=== PATIENT | male | born 1960 | race Caucasian/White ===

== ENCOUNTER 2018-01-01 20:13 | Emergency (ER) | payer BC ==
[2018-01-01 20:46] VITALS: BP 95/49
--- NOTE | 2018-01-01 21:18 | RAD ---
HISTORY: Left ankle pain and foot pain status post fall COMPARISONS: October 07, 2017 VIEWS: 6, Frontal, lateral, and oblique views of the left ankle and of the left foot FINDINGS: BONE DENSITY: Normal. BONES: There is a bone fragment off the lateral aspect of the hindfoot, consistent with an avulsion injury, likely from the calcaneus or cuboid. There are calcaneal enthesophytes.. JOINTS: There is no arthropathy. ALIGNMENT: There is no dislocation. SOFT TISSUES: Unremarkable. OTHER FINDINGS: None. IMPRESSION: BONE FRAGMENT OFF THE LATERAL ASPECT OF THE MIDFOOT, LIKELY AN AVULSION FRACTURE FROM THE CALCANEUS OR CUBOID.
[2018-01-01] MEDS ORDERED: Acetaminop/Codeine 30 MG TAB* 1 TAB (300 MG/30 MG) PO ONE (21:43)
--- NOTE | 2018-01-01 21:43 | UC ---
Lower Extremity/Ankle HPI - History of Current Complaint Chief Complaint: UCLowerExtremity Stated Complaint: ANKLE INJURY Time Seen by Provider: 01/01/18 21:25 Hx Obtained From: Patient Onset/Duration: Sudden Onset - twisted L ankle this evening, pain top of foot and Lateral ankle is able to bear weight Severity Initially: Moderate Severity Currently: Moderate Pain Intensity: 9 Aggravating Factor(s): Standing, Ambulation Alleviating Factor(s): Rest, Ice Able to Bear Weight: Yes - Allergies/Home Medications Allergies/Adverse Reactions: Allergies Allergy/AdvReac Type Severity Reaction Status Date / Time No Known Allergies Allergy Verified 01/01/18 20:47 PMH/Surg Hx/FS Hx/Imm Hx Previously Healthy: Yes Cardiovascular History: Hypertension Neurological History: Other - essential tremor Other Neurological History: tremors - Surgical History Surgical History: None - Family History Known Family History: Positive: Hypertension - Social History Occupation: Retired Lives: With Family Alcohol Use: Daily Substance Use Type: None Smoking Status (MU): Never Smoked Tobacco Review of Systems Constitutional: Negative Respiratory: Negative Cardiovascular: Negative Musculoskeletal: Other: - Pain L ankle/foot Neurological: Negative Psychological: Negative All Other Systems Reviewed And Are Negative: Yes Physical Exam Triage Information Reviewed: Yes Appearance: Well-Appearing, No Pain Distress, Well-Nourished Vital Signs: Initial Vital Signs Temp 98.1 F 01/01/18 20:40 Pulse 60 01/01/18 20:40 Resp 16 01/01/18 20:40 BP 95/49 01/01/18 20:40 Pulse Ox 99 01/01/18 20:40 Vital Signs Reviewed: Yes Respiratory Exam: Normal Cardiovascular Exam: Normal Cardiovascular: Positive: RRR Musculoskeletal: Positive: ROM Limited @ - L ankle, Other: - minor swelling L lateral ankle/foot Neurological Exam: Normal Neurological: Positive: Alert Psychological Exam: Normal Skin Exam: Normal Lower Extremity Course/Dx - Course Course Of Treatment: pt refuses crutches - Differential Dx/Diagnosis Differential Diagnosis/HQI/PQRI: Fracture (Closed), Sprain, Strain Provider Diagnoses: L ankle sprain, avulsion fracture foot Discharge - Sign-Out/Discharge Documenting (check all that apply): Discharge/Admit/Transfer - Discharge Plan Condition: Stable Disposition: HOME Patient Education Materials: Ankle Sprain (ED), Foot Fracture in Adults (ED) Referrals: Luc Hartley MD [Primary Care Provider] - 2 Days Graham Gill MD [Medical Doctor] - 1 Week (recheck fractured foot) Additional Instructions: Patient is aware he has low B/P and is working with PCP to adjust meds. He plans to stop amlodipine as of tomorrow ice and elevate foot, use ankle splint until you see ortho Ibuprofen as directed for pain - Billing Disposition and Condition Condition: STABLE Disposition: HOME
== END 2018-01-01 22:18 | disposition home or self-care (01) ==
LOC: UCEAST 20:13
DX: S93.402A Sprain of unspecified ligament of left ankle, initial encounter (principal); X50.1XXA Overexertion from prolonged static or awkward postures, initial encounter; Y93.9 Activity, unspecified; Y92.9 Unspecified place or not applicable; I10 Essential (primary) hypertension; R25.1 Tremor, unspecified
CPT/HCPCS: 99213; A9270-GY; G0463

== ENCOUNTER 2018-09-05 11:01 | Inpatient (IN) | payer BC ==
--- OUTSIDE RECORDS SUMMARY | 2018-09-05 11:38 | XMS REPORT | Continuity of Care Document ---
:1960 External Reference #:[id number] Author Name Hamzah Foss DO Address [address] [place] [address] Care Team Providers Name Role Phone Luc Hartley MD Care Team Information Chef Assistant Unavailable Luc Hartley MD Primary Care Physician Unavailable Payers Type Date Identification Numbers Payment Provider Subscriber Policy Number: [id number] Of [employer] PayID: [id number] [address] [address] [place] [address] Advance Directives Description No Information Available Problems Date Description Provider Status Onset: 03/28/2018 Digestive symptom Kelsie Jones PA-C Active Onset: 03/28/2018 Esophageal dysphagia Kelsie Jones PA-C Active Onset: 03/28/2018 Nausea and vomiting Kelsie Jones PA-C Active Onset: 03/28/2018 Loss of appetite Kelsie Jones PA-C Active Onset: 03/28/2018 Weight decreased Kelsie Jones PA-C Active Family History Description No Information Available Social History Type Date Description Comments Sex Unknown ETOH Use Consumes 2 beers per day ETOH Use prior heavy use 6/day Tobacco Use Start: Unknown Patient has never smoked Smoking Status Reviewed: 09/05/18 Patient has never smoked Allergies, Adverse Reactions, Alerts Date Description Reaction Status Severity Comments 03/28/2018 Amoxicillin Active Medications Medication Date Status Form Strength Qnty SIG Indications Ordering Provider Alprazolam / Active Tablets 0.25mg Niziol,Mi 0000 MD ld Cialis / Active Tablets 5mg Niziol,Mi 0000 MD ld Testosterone / Active Solution 200mg/ml Unknown Cypionate 0000 Alrex 00/00/ Active Suspension 0.2% Unknown 0000 Mysoline / Active Tablets 50mg 1/4 Tablet Unknown 0000 Daily Lactulose / Active Solution 10GM/15ML 30 ML bid Unknown 0000 Irbesartan-Hyd / Hx Tablets 150-12.5mg Niziol,Blanche rochlorothiazi MD umaña 2018 Gabapentin / Hx Capsules 300mg Niziol,Blanche jaffe MD 2018 Propranolol / Hx Caps ER 24HR 60mg Take 2 Unknown HCL ER 0000 - Capsules 09/05/ By Mouth 2019 Every Day Flovent HFA / Hx Aerosol 220mcg/Act Niziol,Blanche jaffe MD 2018 Amlodipine / Hx Tablets 10mg Blanche Hartley Besylate Sylvie jaffe MD 2018 Immunizations Description No Information Available Vital Signs Date Vital Result Comment 09/05/2018 9:13am Height 67 inches 5'7" Weight 158.00 lb BP Systolic 106 mmHg BP Diastolic 68 mmHg Heart Rate 91 /min BMI (Body Mass Index) 24.7 kg/m2 03/28/2018 8:55am Height 67 inches 5'7" Weight 170.00 lb BP Systolic 129 mmHg BP Diastolic 60 mmHg Heart Rate 74 /min BMI (Body Mass Index) 26.6 kg/m2 Results Test Date Facility Test Result H/L Range Note Laboratory test 03/29/20 [facility] [place] Fecal SEE RESULT 1 finding 18 Lactoferrin BELOW (Stool WBC) Stool Occult 03/29/20 [facility] [place] Stool Occult SEE RESULT 2 Blood Diag 18 Blood, Diag BELOW Liver Function 03/28/20 [facility] Albumin 4.0 g/dL 3.5 -5.2 Panel(!) 18 [address] [facility] Serum/Plasma(!) [place] [address] [phone] Alkaline Phosphatase(!) 75 U/L 39-117 Bilirubin Direct Mass/Vol(!) 0.2 mg/dL 0.0-0.6 Bilirubin Total Mass/Vol(!) 0.4 mg/dL 0.2-1.3 Ast - Sgot 74 U/L High 5-34 Alt - SGPT 77 U/L High 10-40 Protein, Total(!) 6.1 g/dL Low 6.2-8.1 CBC W/Auto 06/22/2017 [facility] White Blood <pending> Differential(!) Count Ser Auto CNT RBC Red Blood Count <pending> Hemoglobin Blood <pending> Hematocrit <pending> MCV (Corpuscular Volume) <pending> MCH (Corpuscular Hemoglobin) <pending> MCHC (Corpuscular Hemog Conc) <pending> RDW <pending> Platelet Count Blood Auto CNT <pending> MPV <pending> Lymph% <pending> Dickinson% <pending> Neutrophil % <pending> Absolute Lymphocytes <pending> Absolute Monocytes <pending> Absolute Neutrophils <pending> Laboratory test 06/22/2017 [facility] BUN/Creatinine <pending> finding Ratio(!) 1 SEE RESULT BELOW Name: BRAYAN NEGRO : [address]: Kelsie SOLIS Acct: [id number] Unit: [id number] AGE: 57 Location: [facility] Re03/29/18 SEX: M Status: REG REF SPEC: [id number] GIRMA: 03/29/[address]: Kelsie SOLIS REQ: [id number] RECD: 03/29/18 STATUS: RES _ SOURCE: STOOL SPDESC: ORDERED: Occult Bl, Diag, Fecal Lactoferr Procedure Result Reported Site Stool Specimen Description Final 03/29/18- 1311 ML Stool Color Brown Stool Form Nonformed Stool Consistency Soft Fecal Lactoferrin (Stool WBC) PENDING Stool Occult Blood (1) PENDING * ML - Main Lab . END OF REPORT DEPARTMENT OF PATHOLOGY, [address] [place] [address] Mejia Osborne M.D. Director [facility] # [id number] 2 SEE RESULT BELOW Name: BRAYAN NEGRO : [address]: Kelsie SOLIS Acct: [id number] Unit: [id number] AGE: 57 Location: [facility] Re03/29/18 SEX: M Status: REG REF SPEC: [id number] GIRMA: 03/29/[address]: Kelsie SOLIS REQ: [id number] RECD: 03/29/18 STATUS: COMP _ SOURCE: STOOL SPDESC: ORDERED: Occult Bl, Diag, Fecal Lactoferr Procedure Result Reported Site Stool Specimen Description Final 03/29/18- 1311 ML Stool Color Brown Stool Form Nonformed Stool Consistency Soft Fecal Lactoferrin (Stool WBC) Final 03/29/18- 1312 ML Fecal Lactoferrin Negative by Immunoassay TEST LIMITATIONS: Assay detects elevated levels of lactoferrin released from fecal leukocytes as a marker of intestinal inflammation. The test may not be appropriate in immunocompromised persons. Fecal samples from breast fed infants should not be used with this assay. Stool Occult Blood (1) Final 03/29/18- 1312 ML Stool Occult Blood Negative Collection Date (1) 03/29/18 * ML - Main Lab . END OF REPORT DEPARTMENT OF PATHOLOGY, [address] [place] [address] Mejia Osborne M.D. Director [facility] # [id number] Procedures Description No Information Available Encounters Type Date Location Provider Dx Diagnosis Office Visit 03/28/2018 Gastroenter[facility] Kelsie Westfall R63.4 Abnormal weight 8:45a [facility] LISA Jones loss R63.0 Anorexia R11.2 Nausea with vomiting, unspecified R13.14 Dysphagia, pharyngoesophageal phase R19.4 Change in bowel habit Plan of Treatment No Information Available
[2018-09-05 13:49] LABS: Hematocrit 37 % (42-52); Hemoglobin 12.5 g/dl (14.0-18.0); Mean Corpuscular HGB Conc 34 g/dl (31-36); Mean Corpuscular Hemoglobin 34 pg (27-31); Mean Corpuscular Volume 99 fL (80-94); Mean Platelet Volume 9.1 fL (7.4-10.4); Platelet Count 150 10^3/ul (150-450); Red Blood Count 3.74 10^6/ul (4.00-5.40); Red Cell Distribution Width 15 % (10.5-15); White Blood Count 6.4 10^3/ul (3.5-10.8)
[2018-09-05 13:58] LABS: Albumin 2.8 g/dL (3.2-5.2); Albumin/Globulin Ratio 1.2 (1-3); BUN/Creatinine Ratio 12.8 (8-20); C Reactive Protein 13.51 mg/L (<8.01); Calcium 7.9 mg/dL (8.6-10.3); EGFR African American 123.7 (>60); EGFR Non-African American 102.2 (>60); Globulin 2.3 g/dL (2-4); Potassium 3.6 mmol/L (3.5-5.0); Total Protein 5.1 g/dL (6.4-8.9)
[2018-09-05 14:00] LABS: Total Bilirubin 15.8 mg/dL (0.2-1.0)
[2018-09-05 14:02] LABS: BNP 130 pg/mL (<=100)
[2018-09-05 14:17] LABS: ABS Basophils 0.1 10^3/ul (0-0.2); ABS Eosinophils 0 10^3/ul (0-0.6); Lymphocytes % 8 %; Monocytes % 12 %; Neutrophil % 78 %
[2018-09-05 14:20] LABS: Indirect Bilirubin 6.6 mg/dL (0.3-1.0)
[2018-09-05] MEDS ORDERED: Iodixanol* (CONTRAST) 320 MG/ML 100 ML SDV IV ONE (14:43)
[2018-09-05 15:06] LABS: Alcohol 194 mg/dL (<10)
--- NOTE | 2018-09-05 16:40 | ED ---
Abdominal Pain/Male - HPI Summary HPI Summary: Patient is a 58-year-old male presenting to the ED from GI office with elevated liver enzymes over the course of the past several weeks. He states he has had several medication changes in attempts to reduce the liver enzymes, but they remain elevated. He shouldn't is also an alcoholic, otherwise all negative hepatitis screening has been negative. Patient denies any pain or symptoms. He does endorse some diarrhea secondary to his lactulose treatment which he is on currently for the side effects of his primidone treatment. He does endorse an essential tremor and reduced his primidone from 75 to currently 12 mg per day. He continues to have this essential tremor despite these medications. Patient denies any fevers, sweats, chills. Denies any headache, confusion, memory loss. He states he has had elevated liver enzymes most of his life due to a medication he took when he was a child. He also states he takes medications currently which increase his liver enzymes. He began to become jaundiced approximately 1.5 months ago, however worsened greatly over the past week. - History of Current Complaint Chief Complaint: EDGeneral Stated Complaint: POSS ELEVATED LIVER ENZYMES Time Seen by Provider: 09/05/18 13:25 Hx Obtained From: Patient Onset/Duration: Gradual Onset Timing: Constant Severity Initially: Moderate Severity Currently: Moderate Pain Intensity: 0 Pain Scale Used: 0-10 Numeric Radiates: No Aggravating Factor(s): Nothing Alleviating Factor(s): Nothing Associated Signs And Symptoms: Positive: Negative - Allergies/Home Medications Allergies/Adverse Reactions: Allergies Allergy/AdvReac Type Severity Reaction Status Date / Time amoxicillin Allergy GI Upset Verified 09/05/18 11:10 Home Medications: Home Medications ALPRAZolam TAB* [Xanax TAB*] 0.25 mg PO DAILY PRN 09/05/18 [History Confirmed ] Lactulose [Enulose] 15 ml PO BID 09/05/18 [History Confirmed 09/05/18] Primidone TAB(*) [Mysoline TAB(*)] 50 mg PO DAILY 09/05/18 [History Confirmed ] Tadalafil (Nf) [Cialis (NF)] 5 mg PO DAILY PRN 09/05/18 [History Confirmed 09/05] Testosterone Cypionate (NF) 200 mg IM WEEKLY 09/05/18 [History Confirmed ] PMH/Surg Hx/FS Hx/Imm Hx Previously Healthy: Yes Endocrine/Hematology History: Denies: Hx Diabetes, Hx Thyroid Disease Cardiovascular History: Reports: Hx Hypertension Respiratory History: Denies: Hx Asthma, Hx Chronic Obstructive Pulmonary Disease (COPD) GI History: Denies: Hx Ulcer History: Denies: Hx Renal Disease - Immunization History Date of Tetanus Vaccine: UTD Date of Influenza Vaccine: NO Hx Pertussis Vaccination: No Immunizations Up to Date: Yes Infectious Disease History: No Infectious Disease History: Denies: Hx Hepatitis, Hx Human Immunodeficiency Virus (HIV), Traveled Outside the [place] in Last 30 Days - Family History Known Family History: Positive: Hypertension - Social History Occupation: Employed Full-time Lives: With Family Alcohol Use: Daily Alcohol Amount: 1-2 beers per day Hx Substance Use: No Substance Use Type: Reports: None Hx Tobacco Use: No Smoking Status (MU): Former Smoker Review of Systems Negative: Fever, Chills, Fatigue, Skin Diaphoresis Positive: Other - scleral icterus Negative: Epistaxis, Dental Pain, Sore Throat, Ear Ache Negative: Palpitations, Chest Pain Negative: Shortness Of Breath, Cough Negative: Abdominal Pain, Vomiting, Diarrhea Positive: Other - jaundiced throughout Neurological: Negative All Other Systems Reviewed And Are Negative: Yes Physical Exam Triage Information Reviewed: Yes Vital Signs On Initial Exam: Initial Vitals Temp Pulse Resp BP Pulse Ox 98.5 F 92 16 138/81 95 09/05/18 11:07 09/05/18 11:07 09/05/18 11:07 09/05/18 11:07 09/05/18 11:07 Vital Signs Reviewed: Yes Appearance: Positive: Ill-Appearing Skin: Positive: Other - Jaundiced throughout Head/Face: Positive: Normal Head/Face Inspection Eyes: Positive: Other: - Scleral icterus ENT: Positive: Pharynx normal Respiratory/Lung Sounds: Positive: Clear to Auscultation, Breath Sounds Present Cardiovascular: Positive: Pulses are Symmetrical in both Upper and Lower Extremities Musculoskeletal: Positive: Strength/ROM Intact, Other - Essential tremor bilaterally Neurological: Positive: Speech Normal Psychiatric: Positive: Affect/Mood Appropriate AVPU Assessment: Alert Diagnostics - Vital Signs Vital Signs Temp Pulse Resp BP Pulse Ox 09/05/18 12:54 99 F 80 16 124/71 97 09/05/18 11:07 98.5 F 92 16 138/81 95 - Laboratory Lab Results: Lab Results 09/05/18 09/05/18 09/05/18 Range/Units 13:25 13:25 13:25 WBC 6.4 (3.5-10.8) 10^3/ul RBC 3.74 L (4.00-5.40) 10^6/ul Hgb 12.5 L (14.0-18.0) g/dl Hct 37 L (42-52) % MCV 99 H (80-94) fL MCH 34 H (27-31) pg MCHC 34 (31-36) g/dl RDW 15 (10.5-15) % Plt Count 150 (150-450) 10^3/ul MPV 9.1 (7.4-10.4) fL Neut % (Auto) Not Reportable Lymph % (Auto) Not Reportable [place] % (Auto) Not Reportable Eos % (Auto) Not Reportable Baso % (Auto) Not Reportable Absolute Neuts (auto) Not Reportable Absolute Lymphs (auto) Not Reportable Absolute Monos (auto) Not Reportable Absolute Eos (auto) Not Reportable Absolute Basos (auto) Not Reportable Absolute Nucleated RBC Not Reportable Neutrophils % 78 % Lymphocytes % 8 % Monocytes % 12 % Eosinophils % 0 % Basophils % 2 % Nucleated RBC % Not Reportable Abs Neuts (Manual) 5.0 (1.5-7.7) 10^3/ul Abs Lymphs (Manual) 0.5 L (1.0-4.8) 10^3/ul Abs Monocytes (Manual) 0.8 (0-0.8) 10^3/ul Absolute Eos (Manual) 0 (0-0.6) 10^3/ul Abs Basophils (Manual) 0.1 (0-0.2) 10^3/ul Normal RBC Morphology Not Reportable Target Cells 1+ APTT (26.0-36.3) seconds Sodium 132 L (135-145) mmol/L Potassium 3.6 (3.5-5.0) mmol/L Chloride 94 L (101-111) mmol/L Carbon Dioxide 29 (22-32) mmol/L Anion Gap 9 (2-11) mmol/L BUN 10 (6-24) mg/dL Creatinine 0.78 (0.67-1.17) mg/dL Est GFR ( Amer) 123.7 (>60) Est GFR (Non-Af Amer) 102.2 (>60) BUN/Creatinine Ratio 12.8 (8-20) Glucose 110 H (70-100) mg/dL Lactic Acid 2.2 H* (0.5-2.0) mmol/L Calcium 7.9 L (8.6-10.3) mg/dL Magnesium 2.0 (1.9-2.7) mg/dL Total Bilirubin 15.80 H* D (0.2-1.0) mg/dL Direct Bilirubin 9.20 H (0.03-0.18) mg/dL Indirect Bilirubin 6.6 H (0.3-1.0) mg/dL AST 292 H (13-39) U/L ALT 136 H (7-52) U/L Alkaline Phosphatase 739 H (34-104) U/L Ammonia (16-53) mcmol/L Total Creatine Kinase 78 (10-223) U/L C-Reactive Protein 13.51 H (<8.01) mg/L B-Natriuretic Peptide (<=100) pg/mL Total Protein 5.1 L (6.4-8.9) g/dL Albumin 2.8 L (3.2-5.2) g/dL Globulin 2.3 (2-4) g/dL Albumin/Globulin Ratio 1.2 (1-3) Amylase 60 (29-103) U/L Lipase 233 H (11.0-82.0) U/L Serum Alcohol (<10) mg/dL 09/05/18 09/05/18 09/05/18 Range/Units 13:25 13:25 14:10 WBC (3.5-10.8) 10^3/ul RBC (4.00-5.40) 10^6/ul Hgb (14.0-18.0) g/dl Hct (42-52) % MCV (80-94) fL MCH (27-31) pg MCHC (31-36) g/dl RDW (10.5-15) % Plt Count (150-450) 10^3/ul MPV (7.4-10.4) fL Neut % (Auto) Lymph % (Auto) [place] % (Auto) Eos % (Auto) Baso % (Auto) Absolute Neuts (auto) Absolute Lymphs (auto) Absolute Monos (auto) Absolute Eos (auto) Absolute Basos (auto) Absolute Nucleated RBC Neutrophils % % Lymphocytes % % Monocytes % % Eosinophils % % Basophils % % Nucleated RBC % Abs Neuts (Manual) (1.5-7.7) 10^3/ul Abs Lymphs (Manual) (1.0-4.8) 10^3/ul Abs Monocytes (Manual) (0-0.8) 10^3/ul Absolute Eos (Manual) (0-0.6) 10^3/ul Abs Basophils (Manual) (0-0.2) 10^3/ul Normal RBC Morphology Target Cells APTT 33.9 (26.0-36.3) seconds Sodium (135-145) mmol/L Potassium (3.5-5.0) mmol/L Chloride (101-111) mmol/L Carbon Dioxide (22-32) mmol/L Anion Gap (2-11) mmol/L BUN (6-24) mg/dL Creatinine (0.67-1.17) mg/dL Est GFR ( Amer) (>60) Est GFR (Non-Af Amer) (>60) BUN/Creatinine Ratio (8-20) Glucose (70-100) mg/dL Lactic Acid (0.5-2.0) mmol/L Calcium (8.6-10.3) mg/dL Magnesium (1.9-2.7) mg/dL Total Bilirubin (0.2-1.0) mg/dL Direct Bilirubin (0.03-0.18) mg/dL Indirect Bilirubin (0.3-1.0) mg/dL AST (13-39) U/L ALT (7-52) U/L Alkaline Phosphatase (34-104) U/L Ammonia 72 H (16-53) mcmol/L Total Creatine Kinase (10-223) U/L C-Reactive Protein (<8.01) mg/L B-Natriuretic Peptide 130 H (<=100) pg/mL Total Protein (6.4-8.9) g/dL Albumin (3.2-5.2) g/dL Globulin (2-4) g/dL Albumin/Globulin Ratio (1-3) Amylase (29-103) U/L Lipase (11.0-82.0) U/L Serum Alcohol 194 H (<10) mg/dL Result Diagrams: 09/05/18 13:25 09/05/18 13:25 Lab Statement: Any lab studies that have been ordered have been reviewed, and results considered in the medical decision making process. Abdominal Pain Fem Course/Dx - Course Course Of Treatment: Course of treatment, the patient's evaluated for transaminitis and jaundice. He was sent here by Dr. Foss, GI specialist at [facility]. Labs obtained which show an elevated bilirubin at 15.80 and transaminitis which show an alcoholic hepatitis. Serum alcohol level is 194. Hyperbilirubinemia.CTA obtained. There is mucosal thickening with pericolonic inflammatory change involving the ascending colon and proximal transverse colon with possible colitis. This is likely secondary to his recent lactulose treatment. There is a 0.5 cm low attenuation lesion of the head of the pancreas. The differential includes pancreatic neoplasm. There is no pancreatic ductal dilatation. Hepatomegaly with fatty infiltration of the liver. Discussed this case with Dr. Kaye, hospitalist. Hospitalist discussed case with Dr. Forte and Pipo, GI specialists who recommended transfer for an EUS or a decompression based on the CT findings. Ultrasound also obtained. Patient remains asymptomatic. - Diagnoses Differential Diagnosis/HQI/PQRI: Hepatitis Provider Diagnoses: Hyperbilirubinemia, Alcoholic hepatitis, Pancreatic mass - Provider Notifications Discussed Care Of Patient With: Hamzah Foss - Dr. Fsos suggested transfer through Dr. Kaye (hospitalist) Instructed by Provider To: Transfer Admit/Transition Orders Completed By ED Provider: Yes Reason For Transfer: Specialty or service not available at [facility]. Discharge - Sign-Out/Discharge Documenting (check all that apply): Sign-Out Patient Signing out patient TO: Camilo Louise - Pending transfer to other facility - Discharge Plan Condition: Fair Disposition: TRANS HIGHER LVL OF CARE FAC Referrals: Luc Hartley MD [Primary Care Provider] - - Billing Disposition and Condition Condition: FAIR Disposition: Trans Higher Lvl of Care Fac
[2018-09-05] MEDS ORDERED: Al Hydrox/Mg Hydrox/Simet LIQ* 30 ML UDC PO PRN (22:38)
[2018-09-05] MEDS ORDERED: predniSONE TAB* 20 MG PO ONE (22:40)
[2018-09-05] MEDS ORDERED: Thiamine IV* 100 MG/ML 2 ML VIAL IM ONE (22:45)
[2018-09-05 23:40] LABS: Ferritin > 1500.0 ng/mL (24-336)
[2018-09-05 23:51] LABS: Urine Appearance Cloudy; Urine Bilirubin 2+ (Negative); Urine Blood Negative (Negative); Urine Color Amber; Urine Glucose Negative (Negative); Urine Ketones Trace (Negative); Urine Nitrite Negative (Negative); Urine Protein Negative (Negative); Urine Specific Gravity 1.057 (1.010-1.030); Urine Urobilinogen Positive (Negative)
[2018-09-06 00:09] LABS: Transferrin 82 mg/dL (203-362)
--- NOTE | 2018-09-06 04:57 | HP ---
CC: Luc Hartley MD; Reynold Forte MD * HISTORY AND PHYSICAL: DATE OF ADMISSION: 09/05/18 TIME OF EVALUATION: 2200. PRIMARY CARE PHYSICIAN: Luc Hartley MD CHIEF COMPLAINT: Abnormal liver enzymes and jaundice. HISTORY OF PRESENT ILLNESS: This is a 58-year-old male with a past medical history of elevated LFTs who presented to the emergency room from his gastroenterology office for concern for elevated LFTs. The patient states he has had elevated LFTs, first noted when he was a teenager. They thought it was secondary to his INH treatment from TB exposure. He also developed an essential tremor in his late teens. He states his tremor worsened in September 2017 and he was self-medicating with alcohol, drinking 3 to 4 beers per day. He went to see his primary, who started him on Inderal to help with the tremors and it was sedating, so he was able to cut back on the alcohol for 1 to 2 beers per day, which he cut back, back in November. The patient was discontinued on the Inderal because it was too sedating and he was added primidone and they have quite dramatically cut down his dosing due to his LFTs being elevated and concern for metabolism and excretion. Due to the rise in his bilirubin and LFTs , he went to see GI back in April. He said it was a relatively unremarkable visit. He went back today after being sent by his primary care physician after getting lab work done 3 days ago, and Dr. Forte recommended he come to the emergency room for further evaluation. The patient denies any abdominal pain. He does feel bloating and nauseated. No vomiting. He does get occasionally diarrhea that he was started on the antispasmodic for. No black stools. No bloody stools. He has had a decrease in appetite, about 40 pounds since April 2018; some of it was intentional, he states. The patient denies any fevers. No chest pain or shortness of breath. He, as mentioned, has cut back on his drinking since November 2017 down to 1 to 2 beers per day. In the emergency room, the patient had labs and imaging. The initial concern was that the patient would need emergent endoscopic ultrasound for the pancreatic mass. However, after speaking with Dr. Forte, there were no findings of dilatation of the biliary tree and the recommendation was workup for his lab abnormalities and to continue to find placement for his endoscopic ultrasound when a bed does become available. Patient also of note had hepatitis workup back done this month that was unremarkable. In the emergency room, as mentioned, patient has labs and imaging, and he was referred to the hospitalist service for further evaluation. PAST MEDICAL HISTORY: 1. Patient being worked up for worsening jaundice. 2. History of essential tremor. 3. History of low testosterone. 4. History of elevated LFTs since he has been a teenager. 5. History of TB exposure. 6. History of hypertension, not on any medications. MEDICATIONS: 1. Primidone 12 mg p.o. daily. 2. Xanax as needed. 3. Lactulose b.i.d., just started 3 days ago. 4. Cialis 5 mg daily. 5. Testosterone weekly. 6. Patient states he is on an antispasmodic for his diarrhea. ALLERGIES: AMOXICILLIN, he gets GI upset. FAMILY HISTORY: Mother at age 90 from congestive heart failure. Father at age 50 from suicide. 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 No history of smoking. As mentioned, he was self- medicating with 3 to 4 glasses of beer per day and then cut back, back in November to 1 to 2 beers per day. No history of drugs or smoking. His healthcare proxy is his Sol luz. Code status, full code. REVIEW OF SYSTEMS: A 14-point review of systems was reviewed and as mentioned in the HPI, otherwise negative. PHYSICAL EXAMINATION GENERAL: In no acute distress, resting comfortably, noted mild essential tremor. VITAL SIGNS: Temp is 99.8, pulse rate 80, respiratory rate is 12, oxygen saturation is 94% on room air, blood pressure 122/73. HEENT: Head: Normocephalic. Pupils are dilated. Conjunctivae are injected. Scleral icterus. Oropharynx: Mucous membranes are moist. NECK: Supple. No lymphadenopathy. RESPIRATORY: Diminished breath sounds. No wheezing, rhonchi, or rales. CARDIAC: Regular rate and rhythm. Soft systolic murmur heard throughout. ABDOMEN: Hypoactive bowel sounds, some distention, soft, nontender. EXTREMITIES: Trace pretibial edema, +1 DP. NEUROLOGIC: Alert and oriented x3. No gross focal neurologic deficits. Does have a resting tremor. LABORATORY DATA: White count 6.4, hemoglobin 12.5, hematocrit 37, platelets 150. Sodium 132, potassium 3.6, chloride 94, bicarb 29, BUN 10, creatinine 0.78 , glucose 110, lactic acid 2.2, calcium 7.9. Total bili is 15.8, direct 9.2, indirect 6.6, AST 292, ALT 136, alk phos 739, ammonia is 72. CRP is 13.5. BNP is 130. Albumin is 2.8, lipase 233. Alcohol level is 194. Abdominal and pelvis CT: There is mucosal thickening with pericolonic inflammatory change involving the ascending colon and proximal transverse colon suggestive of colitis. There is a 0.5 cm low-attenuated lesion of the head of the pancreas, differential includes pancreatic neoplasm. There is no pancreatic ductal dilatation. Hepatomegaly with fatty infiltration of the liver , atherosclerosis, diverticulosis, and enlarged prostate. Gallbladder ultrasound: Hepatomegaly with fatty infiltration of the liver, gallbladder wall thickening with a small amount of pericholecystic fluid without sonographic Gomez sign; indeterminate for acute cholecystitis, low- attenuated lesion of the head of the pancreas. This appears to correspond to CT findings, but is more readily apparent on the sonography measuring up to 3.1 cm on the current exam. There is no intrahepatic or extrahepatic biliary dilatation. ASSESSMENT: This is a 58-year-old male with past medical history of elevated LFTs who presents to the emergency room with worsening jaundice and elevated LFTs. 1. Painless jaundice with elevated LFTs. Assessment: Patient with what appears to have alcoholic hepatitis. Interestingly, patient has had a history of elevated LFTs since he has been a teenager, thought to be secondary to side effect of INH treatment. Question if patient has an underlying abnormality such as Justino disease or hemochromatosis which has escalated his liver failure with alcohol use. I did speak with Dr. Forte, who did not feel that there was any emergent indication for getting an EUS because there are no findings of biliary dilatation. He does not have obstructive jaundice. He feels that his elevated bilirubin and liver function tests are related to his alcohol use and recommends starting him on prednisone. Plan: We will admit to [facility]. We will repeat his labs in the morning. We will place him on a WA protocol, place him on prednisone. We will also work him for any underlying liver abnormalities including getting a ferritin, TIBC, copper, ceruloplasmin level to evaluate for Justino's and hemochromatosis. 2. Pancreatic mass. Assessment: Discussed with the patient concern for malignancy with his pancreatic mass. It is not causing obstructive jaundice at this point, but he will need an endoscopic ultrasound either by being transferred or being discharged home and having this done as an elective procedure. 3. Chronic medical problem, essential tremor. Continue his primidone at the low dose. 4. FEN. Regular diet. 5. DVT. Patient scored moderate risk. We will place him on heparin subcu t.i.d. 6. Code status. Full code. TIME SPENT: Greater than 50 minutes was spent doing the history and physical, more than half the time spent in direct patient contact. [id number]/[facility] #: [id number] [place]
[2018-09-06] MEDS: Heparin VIAL(*) 5000 UNITS/ML VIAL (FIVE THOUSAND) SUBCUT SCH ×3 (06:02→22:29)
[2018-09-06 07:02] LABS: INR 0.9 (0.77-1.02)
[2018-09-06 07:05] LABS: % Iron Saturation 78 % (15-55); Iron 97 ug/dL (50-212); Total Iron Binding Capacity 125 mcg/dL (250-450); Transferrin 89 mg/dL (203-362)
[2018-09-06 07:07] LABS: ALT 123 U/L (7-52); AST 280 U/L (13-39); Albumin 2.8 g/dL (3.2-5.2); Albumin/Globulin Ratio 1.2 (1-3); Alkaline Phosphatase 837 U/L (34-104); Anion Gap 11 mmol/L (2-11); BUN/Creatinine Ratio 11.3 (8-20); Blood Urea Nitrogen 9 mg/dL (6-24); CO2 Carbon Dioxide 29 mmol/L (22-32); Calcium 8.3 mg/dL (8.6-10.3); Chloride 94 mmol/L (101-111); EGFR African American 120.1 (>60); EGFR Non-African American 99.3 (>60); Globulin 2.3 g/dL (2-4); Glucose 112 mg/dL (70-100); Potassium 3.4 mmol/L (3.5-5.0); Sodium 134 mmol/L (135-145); Total Protein 5.1 g/dL (6.4-8.9)
[2018-09-06 07:15] LABS: Indirect Bilirubin 8.9 mg/dL (0.3-1.0)
[2018-09-06 07:34] LABS: Hematocrit 38 % (42-52); Hemoglobin 13.1 g/dl (14.0-18.0); Mean Corpuscular HGB Conc 34 g/dl (31-36); Mean Corpuscular Hemoglobin 34 pg (27-31); Mean Corpuscular Volume 98 fL (80-94); Mean Platelet Volume 9.5 fL (7.4-10.4); Platelet Count 171 10^3/ul (150-450); Red Cell Distribution Width 15 % (10.5-15); White Blood Count 6.6 10^3/ul (3.5-10.8)
--- NOTE | 2018-09-06 08:22 | PN ---
Subjective Date of Service: 09/06/18 Interval History: HOSPITALIST PROGRESS NOTE Patient seen and examined at bedside. Care reviewed and d/w Misha Murillo RN. He offers no new complaints today. Denies abdominal pain, nausea, actually feels hungry. Family History: Unchanged from Admission Social History: Unchanged from Admission Past Medical History: Unchanged from Admission Objective Active Medications: Al Hydrox/Mg Hydrox/Simethicone (Maalox Plus*) 30 ml PO Q6H PRN PRN Reason: INDIGESTION Folic Acid (Folvite Tab*) 1 mg PO DAILY [facility] Heparin Sodium (Porcine) (Heparin Vial(*)) 5,000 units SUBCUT Q8HR [facility] Last Admin: 09/06/18 06:02 Dose: 5,000 units Lactulose (Lactulose*) 15 ml PO BID [facility] Lorazepam (Ativan Tab(*)) 0 - 6 mg PO .PER [facility] PROTOCOL [facility]HA[facility]; Protocol Multivitamins/Minerals (Theragran/Minerals Tab*) 1 tab PO DAILY [facility] Prednisone (Deltasone Tab*) 40 mg PO DAILY [facility] Thiamine HCl (Vitamin B-1 Tab*) 100 mg PO DAILY [facility] Vital Signs - 8 hr 09/06/18 09/06/18 09/06/18 00:29 03:04 03:28 Temperature 99.6 F 98.3 F 98.7 F Pulse Rate 91 85 87 Respiratory 18 18 17 Rate Blood Pressure 151/83 123/71 147/74 (mmHg) O2 Sat by Pulse 96 95 95 Oximetry Oxygen Devices in Use Now: None Appearance: Pleasant gentleman lying in bed in [facility]. Eyes: - - Significant jaundice Ears/Nose/Mouth/Throat: Mucous Membranes Moist Neck: Trachea Midline Respiratory: Symmetrical Chest Expansion and Respiratory Effort, Clear to Auscultation Cardiovascular: RRR - Normal S1 and S2 Abdominal: NL Sounds; No Tenderness; No Distention, - - Hepatomegaly, non tender , 3 fingerbreadths from right costal margin Extremities: No Edema Skin: - - Face and chest telangiectasis Neurological: Alert and Oriented x 3, NL Muscle Strength and Tone, - - Significant extremities tremors Result Diagrams: 09/06/18 06:06 09/06/18 06:06 Assess/Plan/Problems-Billing Assessment: Mr Winchester is a 58yo M with PMH of essential tremor, hypogonadism, HTN, TB exposure, who is being followed as outpatient for progressive jaundice, sent to the hospital due to worsening LFTs. - Patient Problems (1) Jaundice Comment: - Patient states when he was 19yo he was found to have LFT elevation and this was felt to be secondary to meds he was taking for TB exposure. He states follow up labs were normal. Three years ago LFTs were mildly elevated and he's been following with his PCP as outpatient. Recently they have become worse, reason why he was referred to Dr. Forte. - I suspect he has liver disease associated with hemochromatosis considering his iron saturation of 78 and Ferritin >1500, exacerbated by alcoholic hepatitis. - Bilirubin up to 18.5 today. - Continue prednisone. - Awaiting GI input. (2) Pancreatic mass Comment: - Incidental finding on CT - 0.5cm pancreatic mass with no signs of obstruction. - For MRCP today. (3) Colonic thickening Comment: - Incidental finding of ascending and transverse colon thickening suggestive of colitis, but patient is asymptomatic. - Awaiting GI input. (4) Increased ammonia level Comment: - Secondary to liver disease, has no signs of encephalopathy - continue Lactulose and monitor. (5) Alcohol abuse Comment: - Patient states he drinks to self treat his tremors - doesn't think he needs assistance quitting. - No signs of withdrawal at this time. - Continue WAM. (6) Essential tremor Comment: - Continue benzos and Primidone. (7) HTN (hypertension) Comment: - Controlled off meds - continue to monitor. (8) DVT prophylaxis Comment: - SQ heparin. (9) Full code status Status and Disposition: Inpatient to continue w/u.
[2018-09-06] MEDS: Thiamine TAB* 100 MG TAB PO SCH (09:38)
[2018-09-06] MEDS: Multivitamins/Minerals TAB PO SCH (09:39)
[2018-09-06] MEDS: predniSONE TAB* 20 MG PO SCH (09:40)
[2018-09-06] MEDS: Folic Acid TAB* 1 MG PO SCH (09:40)
[2018-09-06] MEDS: Lactulose* 15 ML UDC PO SCH ×2 (09:41→20:17)
[2018-09-06] MEDS: LORazepam TAB(*) 1 MG PO SCH ×2 (19:22→21:26)
[2018-09-06] MEDS ORDERED: Primidone TAB(*) 50 MG PO SCH (21:00)
--- NOTE | 2018-09-06 21:59 | CONS ---
GASTROENTEROLOGY CONSULT: DATE: . 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 He was referred by his primary doctor to [facility] and saw Dr. Soares yesterday, and with profound jaundice, was sent to the emergency room. At [facility] he was seen alone as recently he has not permitted his significant other of 3 years to go with him to appointments, with the 2 of them admitting it is due to disagreements over his history, though she was in the room today during the interview and frequently made comments. He chose to start his history by describing a tremor that began last spring and for which he had a neurology consult at the [facility] in December with one f/u visit and then started on a sequence (variably outlined) gabapentin and Inderal, and then Mysoline with Inderal being tapered off. This fall s he was having increasing sedative effects, Mysoline was tapered throughout the fall by Dr. Hartley from 50 to 25 to 12.5. His significant other points out that increasingly he had been sleeping 18 to 20 hours a day and having some falls and fortunately not having any fractures. He was acting increasingly somnolent. He admitted he was self-medicating with alcohol. She said he would have about 6 beers a day. This precipitated some disagreements between them as to how much he was drinking and how persistently. In the ER yesterday, his alcohol level during the afternoon was 194 with and he said that his last drink was 10: 30 p.m. His alcohol intake is over 90% beer with occasional wine and no distilled spirits. He does not take any herbal supplements or other alternative medicines. He has been getting IM shots of testosterone for a few years. PAST MEDICAL HISTORY: 1. Alcohol abuse - details uncertain as during the history his significant other would consistently quote a higher number of beers per day and then he would disagree. She would lower her voice and try to mouth different words. He would parts picker on that and disagree further. 2. Essential tremor. 3. History of low testosterone - lab values in the [facility] [place] 2-3x a year since 2012 4. History of TB exposure - on INH in teenage years and apparently some blood abnormalities noted. 5. Erectile dysfunction - periodic Cialis. ALLERGIES: AMOXICILLIN caused gastrointestinal upset. SOCIAL HISTORY: He is a nonsmoker. He does not use illicit drugs. His SO is still working REVIEW OF SYSTEMS: No history of arrhythmias, syncope, RI, seizure, prior jaundice or hematuria. He did have a colonoscopy a few years ago, stating he thinks a polyp was seen, but details are unclear. It was done through the [place] office by Dr Chao. His only surgery ever was on a plantar wart. With this illness, he has not had any itching or rash. There has been no abdominal pain or vomiting. His appetite has been less. There has been no rectal bleeding. EXAM: He is a slender, intensely jaundiced man with a baseline tremor that is quite coarse in the hands, arms, and in the legs. He is oriented to self and place, and when given time, to time. He does, however, get many details switched around as to the names of various personnel. That is difficult to focus on, but his significant other feels that his memory and orientation on these details is much impaired. HEENT exam shows icterus. Mucous membranes are normal. He has no adenopathy. His lungs are clear. Heart sounds are regular, though little bit pounding. His abdomen is firm with a vague sense of hepatomegaly. The spleen is not felt. There is no tenderness or mass. Bowel sounds are normal. Clearly, there is no pain whatsoever. Rectal deferred. Extremities: Normal apart from jaundice. LABS: Hemoglobin 13.1, hematocrit 38, platelets 171. White count 6.6. INR 0.90, bilirubin 18.5, ALT 123, AST 280, alkaline phosphatase 837, albumin 2.8, ammonia 72, B12 of 618 (10 days ago). RADIOLOGY REVIEW: CT scan and ultrasound do not demonstrate any stones or sludge in the common duct or gall-bladder. There is some question of a filling defect on the CT scan very distally in the common duct, image 36 and 57. It is not calcified and is equivocal. Pancreas is not showing any ductal dilation. The colon shows some thickening and is read out as showing stranding, though patient does not have any fever and denies abdominal pain. IMPRESSION: Alcoholic hepatitis is certainly present here and could explain virtually all of his manifestations. Sometimes, alcoholic hepatitis can be predominantly cholestatic. It usually does not cause itching. The CBD is small on all the studies so an obstruction at the papilla or in the pancreas is not likely contributing to jaundice though imaging in these areas questions some abnormalities which could be significant but doubtfully obstructing . He has never had pancreatitis. MRCP will be useful. Further f/u imaging is indicated to clarify the status of the pancreas but in his current situation there is no reason to take on the burden of invasive tests. At a later time the risk of invasive procedures should be less. He has no pain at all and no vomiting As to other causes the transaminases ratio certainly supports Etoh as the issue. There is no known exposure to other drugs that would usually do this except for the question of his testosterone injections. They have been going on for quite some time and if they are playing a role as co-factor, it is not likely to be the predominating role. His quite elevated alcohol level at 2:00 in the afternoon is a very compelling supportive piece of information. His ammonia and low albumin are concerning though INR is still normal. T With chronic smoldering alcoholic hepatitis, the ferritin is often elevated. He may be a heterozygote for hemochromatosis. Alcoholic hepatitis with heterozygous hemochromatotic contribution is more likely than pure hemochromatosis, which would not usually present with cholestasis. Empiric prednisone would appear indicated. [id number]/[facility] #: [id number] [facility]
[2018-09-06] MEDS: LORazepam INJ* 2 MG/ML 1 ML VIAL IV PUSH SCH (23:06)
[2018-09-07] MEDS: LORazepam INJ* 2 MG/ML 1 ML VIAL IV PUSH SCH ×11 (01:26→22:36)
[2018-09-07] MEDS: Heparin VIAL(*) 5000 UNITS/ML VIAL (FIVE THOUSAND) SUBCUT SCH ×3 (05:14→22:18)
[2018-09-07 06:58] LABS: Albumin 2.4 g/dL (3.2-5.2); Albumin/Globulin Ratio 1.2 (1-3); BUN/Creatinine Ratio 12.5 (8-20); EGFR African American 135.7 (>60); EGFR Non-African American 112.1 (>60); Total Protein 4.4 g/dL (6.4-8.9)
[2018-09-07 07:01] LABS: Potassium 2.7 mmol/L (3.5-5.0); Total Bilirubin 19.7 mg/dL (0.2-1.0)
[2018-09-07] MEDS ORDERED: Potassium Chlor TAB* 20 MEQ TAB.ER PO ONE (07:09)
[2018-09-07 07:39] LABS: Hematocrit 32 % (42-52); Hemoglobin 10.9 g/dl (14.0-18.0); Mean Corpuscular HGB Conc 34 g/dl (31-36); Mean Corpuscular Hemoglobin 33 pg (27-31); Mean Corpuscular Volume 97 fL (80-94); Mean Platelet Volume 9.2 fL (7.4-10.4); Platelet Count 170 10^3/ul (150-450); Red Blood Count 3.29 10^6/ul (4.00-5.40); Red Cell Distribution Width 16 % (10.5-15); White Blood Count 6.7 10^3/ul (3.5-10.8)
[2018-09-07 07:42] LABS: Immature Granulocytes 1 % (0-9); Lymphocytes % 11 %; Monocytes % 19 %; Myelocytes % 1 % (0-1); Neutrophil % 69 %; Polychromasia 1+
[2018-09-07 07:43] LABS: ABS Neutrophils 4.7 10^3/ul (1.5-7.7)
[2018-09-07] MEDS: Lactulose* 15 ML UDC PO SCH ×5 (07:45→20:33)
[2018-09-07] MEDS: Folic Acid TAB* 1 MG PO SCH (07:45)
[2018-09-07] MEDS: Primidone TAB(*) 50 MG PO SCH (07:45)
[2018-09-07] MEDS: KCL 10 MEQ/50 ML IVPREMIX* 10 MEQ/50 ML BAG IV SCH ×3 (07:45→10:32)
[2018-09-07] MEDS: Multivitamins/Minerals TAB PO SCH (07:45)
[2018-09-07] MEDS: predniSONE TAB* 20 MG PO SCH (07:46)
[2018-09-07] MEDS: Thiamine TAB* 100 MG TAB PO SCH (07:46)
--- NOTE | 2018-09-07 09:15 | PN ---
Subjective Date of Service: 09/07/18 Interval History: HOSPITALIST PROGRESS NOTE Patient seen and examined at bedside. Care reviewed and d/w Stephen James RN. He's confused and as per sukh he was already showing some signs last night, trying to grab things that weren't there. He did not interact with me today, eyes are open, but doesn't follow commands. Family History: Unchanged from Admission Social History: Unchanged from Admission Past Medical History: Unchanged from Admission Objective Active Medications: Al Hydrox/Mg Hydrox/Simethicone (Maalox Plus*) 30 ml PO Q6H PRN PRN Reason: INDIGESTION Folic Acid (Folvite Tab*) 1 mg PO DAILY [facility] Last Admin: 09/07/18 07:45 Dose: 1 mg Heparin Sodium (Porcine) (Heparin Vial(*)) 5,000 units SUBCUT Q8HR [facility] Last Admin: 09/07/18 05:14 Dose: 5,000 units Potassium Chloride (Potassium Chloride 10 Meq/50 Ml Ivpremix*) 10 meq in 50 mls @ 50 mls/hr IV Q1H [facility] Stop: 09/07/18 10:59 Last Admin: 09/07/18 09:02 Dose: 50 mls/hr Lorazepam (Ativan Inj*) 0 - 6 mg IV PUSH .PER [facility] PROTOCOL [facility]; Protocol Last Admin: 09/07/18 08:08 Dose: 1 mg Multivitamins/Minerals (Theragran/Minerals Tab*) 1 tab PO DAILY [facility] Last Admin: 09/07/18 07:45 Dose: 1 tab Prednisone (Deltasone Tab*) 40 mg PO DAILY [facility] Last Admin: 09/07/18 07:46 Dose: 40 mg Primidone (Mysoline Tab(*)) 50 mg PO DAILY [facility] Last Admin: 09/07/18 07:45 Dose: 50 mg Thiamine HCl (Vitamin B-1 Tab*) 100 mg PO DAILY [facility] Last Admin: 09/07/18 07:46 Dose: 100 mg Vital Signs - 8 hr 09/07/18 09/07/18 09/07/18 01:26 03:02 03:07 Temperature Pulse Rate 100 Respiratory 16 16 19 Rate Blood Pressure 138/64 (mmHg) O2 Sat by Pulse Oximetry 09/07/18 09/07/18 09/07/18 03:15 04:30 05:08 Temperature 97.9 F Pulse Rate 86 Respiratory 16 16 20 Rate Blood Pressure 137/61 (mmHg) O2 Sat by Pulse 96 Oximetry 09/07/18 09/07/18 09/07/18 05:14 06:42 07:47 Temperature 98.1 F Pulse Rate 93 Respiratory 16 16 16 Rate Blood Pressure 138/91 (mmHg) O2 Sat by Pulse 95 Oximetry 09/07/18 09/07/18 09/07/18 08:00 08:08 09:13 Temperature 98.3 F Pulse Rate 104 Respiratory 18 18 26 Rate Blood Pressure 126/66 (mmHg) O2 Sat by Pulse 97 Oximetry Oxygen Devices in Use Now: Nasal Cannula Appearance: Middle aged gentleman lying in bed in NAD Eyes: - - Severe jaundice Ears/Nose/Mouth/Throat: Mucous Membranes Moist Neck: Trachea Midline Respiratory: Symmetrical Chest Expansion and Respiratory Effort, Clear to Auscultation Cardiovascular: RRR - Normal S1 and S2 Abdominal: - - Soft, NT, ND, hepatomegaly, BS+ Neurological: - - Lethargic, arousable to voice, did not answer questions or follow commands Result Diagrams: 09/07/18 06:15 09/07/18 06:15 Assess/Plan/Problems-Billing Assessment: Mr Winchester is a 58yo M with PMH of essential tremor, hypogonadism, HTN, TB exposure, who is being followed as outpatient for progressive jaundice, sent to the hospital due to worsening LFTs. - Patient Problems (1) Alcoholic hepatitis Comment: - GI input appreciated - Dr Forte feels his clinical picture is compatible with alcoholic hepatitis. May be heterozygous for hemochromatosis but did not feel this is pure hemochromatosis. - Will change steroids to IV. - His MDF is around 19. - Jenn describes EOTH intake much higher than what he described yesterday, with hidden bottles and prior episodes of withdrawal. Will continue WAM protocol and increase Thiamine supplementation. (2) Jaundice Comment: - Patient states when he was 19yo he was found to have LFT elevation and this was felt to be secondary to meds he was taking for TB exposure. He states follow up labs were normal. Three years ago LFTs were mildly elevated and he's been following with his PCP as outpatient. Recently they have become worse, reason why he was referred to Dr. Forte. - I suspect he has liver disease associated with hemochromatosis considering his iron saturation of 78 and Ferritin >1500, exacerbated by alcoholic hepatitis. - Bilirubin up to 18.5 today. - Continue prednisone. - Awaiting GI input. (3) Hepatic encephalopathy Comment: - Ammonia was elevated yesterday but mental status was intact. Today he 's lethargic - will repeat ammonia, increase Lactulose and add Rifaximin. (4) Pancreatic mass Comment: - Incidental finding on CT - 0.5cm pancreatic mass with no signs of obstruction. - MRCP reviewed. (5) Colonic thickening Comment: - Incidental finding of ascending and transverse colon thickening suggestive of colitis, but patient is asymptomatic. - Awaiting GI input about it. (6) Alcohol abuse Comment: - Patient states he drinks to self treat his tremors - doesn't think he needs assistance quitting. - No signs of withdrawal at this time. - Continue WAM. (7) Essential tremor Comment: - Continue benzos and Primidone. (8) HTN (hypertension) Comment: - Controlled off meds - continue to monitor. (9) DVT prophylaxis Comment: - SQ heparin. (10) Full code status (11) Hypokalemia Comment: - EKG shows no new changes. - Replete. Status and Disposition: Inpatient. Fiance updated at bedside.
[2018-09-07] MEDS: RiFAXimin* 550 MG TAB PO SCH ×2 (10:30→20:08)
[2018-09-07] MEDS: methylPREDNISolone SOD 40 MG* 1 ML VIAL IV SCH (10:30)
[2018-09-07] MEDS: Thiamine IV* 500 MG in NS 0.9% 250 ML* 250 ML IV SCH ×3 (11:52→20:09)
[2018-09-07 12:04] LABS: BUN/Creatinine Ratio 9.8 (8-20); Calcium 8.2 mg/dL (8.6-10.3); EGFR African American 116.8 (>60); EGFR Non-African American 96.5 (>60); Potassium 3.6 mmol/L (3.5-5.0)
[2018-09-07 14:40] LABS: Ceruloplasmin 44.4 mg/dL
[2018-09-07 18:02] LABS: Copper Level 0.65 mcg/mL (0.75-1.45)
[2018-09-08] MEDS: LORazepam INJ* 2 MG/ML 1 ML VIAL IV PUSH SCH ×6 (03:49→22:58)
[2018-09-08] MEDS: Heparin VIAL(*) 5000 UNITS/ML VIAL (FIVE THOUSAND) SUBCUT SCH ×3 (06:04→22:53)
[2018-09-08 06:23] LABS: Hematocrit 34 % (42-52); Hemoglobin 12.2 g/dl (14.0-18.0); Mean Corpuscular HGB Conc 36 g/dl (31-36); Mean Corpuscular Hemoglobin 34 pg (27-31); Mean Corpuscular Volume 96 fL (80-94); Mean Platelet Volume 8.3 fL (7.4-10.4); Platelet Count 212 10^3/ul (150-450); Red Blood Count 3.57 10^6/ul (4.00-5.40); Red Cell Distribution Width 16 % (10.5-15); White Blood Count 10.1 10^3/ul (3.5-10.8)
[2018-09-08 06:29] LABS: INR 1.01 (0.77-1.02)
[2018-09-08 06:43] LABS: Albumin 2.5 g/dL (3.2-5.2); Albumin/Globulin Ratio 1.2 (1-3); BUN/Creatinine Ratio 9.5 (8-20); Calcium 8.3 mg/dL (8.6-10.3); EGFR African American 113.6 (>60); EGFR Non-African American 93.9 (>60); Globulin 2.1 g/dL (2-4); Potassium 2.9 mmol/L (3.5-5.0); Total Protein 4.6 g/dL (6.4-8.9)
[2018-09-08 06:45] LABS: Total Bilirubin 24.5 mg/dL (0.2-1.0)
[2018-09-08 06:52] LABS: Immature Granulocytes 2 % (0-9); Lymphocytes % 6 %; Monocytes % 16 %; Myelocytes % 1 % (0-1); Neutrophil % 71 %; Variant Lymph % 5 % (0-6)
[2018-09-08 06:53] LABS: Polychromasia 1+
[2018-09-08 06:58] LABS: ABS Neutrophils 7.4 10^3/ul (1.5-7.7)
[2018-09-08] MEDS ORDERED: Potassium Chlor TAB* 20 MEQ TAB.ER PO ONE (07:02)
[2018-09-08] MEDS: KCL 10 MEQ/50 ML IVPREMIX* 10 MEQ/50 ML BAG IV SCH ×3 (08:32→11:42)
[2018-09-08] MEDS: Lactulose* 15 ML UDC PO SCH (08:33)
[2018-09-08] MEDS: methylPREDNISolone SOD 40 MG* 1 ML VIAL IV SCH (08:33)
[2018-09-08] MEDS: Primidone TAB(*) 50 MG PO SCH (08:33)
[2018-09-08] MEDS: Multivitamins/Minerals TAB PO SCH (08:34)
[2018-09-08] MEDS: Thiamine TAB* 100 MG TAB PO SCH (08:34)
[2018-09-08] MEDS: RiFAXimin* 550 MG TAB PO SCH (08:34)
[2018-09-08] MEDS: Folic Acid TAB* 1 MG PO SCH (08:34)
--- NOTE | 2018-09-08 10:50 | PN ---
Subjective Date of Service: 09/08/18 Interval History: HOSPITALIST PROGRESS NOTE Patient seen and examined at bedside. Care reviewed and d/w Stephen James RN. Last night events reviewed. He's very lethargic, unable to tolerate PO meds or diet, but able to protect his airway. Family History: Unchanged from Admission Social History: Unchanged from Admission Past Medical History: Unchanged from Admission Objective Active Medications: Folic Acid (Folvite Tab*) 1 mg NG TUBE DAILY [facility] Heparin Sodium (Porcine) (Heparin Vial(*)) 5,000 units SUBCUT Q8HR [facility] Last Admin: 09/08/18 06:04 Dose: 5,000 units Thiamine HCl 500 mg/ Sodium (Chloride) 255 mls @ 255 mls/hr IV TID [facility] Stop: 09/08/18 21:59 Last Admin: 09/07/18 20:09 Dose: 255 mls/hr Potassium Chloride (Potassium Chloride 10 Meq/50 Ml Ivpremix*) 10 meq in 50 mls @ 50 mls/hr IV Q1H [facility] Stop: 09/08/18 10:59 Last Admin: 09/08/18 10:30 Dose: 50 mls/hr Lactulose (Lactulose*) 30 ml NG TUBE QID [facility] Lorazepam (Ativan Inj*) 0 - 6 mg IV PUSH .PER [facility] PROTOCOL [facility]; Protocol Last Admin: 09/08/18 08:33 Dose: 2 mg Methylprednisolone Sodium Succinate (Solu-Medrol 40 Mg) 40 mg IV DAILY [facility] Last Admin: 09/08/18 08:33 Dose: 40 mg Multivitamins/Minerals (Theragran/Minerals Tab*) 1 tab .SEE ORDER DAILY [facility] Primidone (Mysoline Tab(*)) 50 mg .SEE ORDER DAILY [facility] Rifaximin (Xifaxan*) 550 mg G TUBE BID [facility] Vital Signs - 8 hr 09/08/18 09/08/18 09/08/18 03:15 03:49 05:00 Temperature 98.5 F Pulse Rate 92 Respiratory 18 20 20 Rate Blood Pressure 142/90 (mmHg) O2 Sat by Pulse 96 Oximetry 09/08/18 09/08/18 09/08/18 05:32 06:00 07:10 Temperature 98.8 F Pulse Rate 94 Respiratory 20 20 18 Rate Blood Pressure 148/79 (mmHg) O2 Sat by Pulse 94 Oximetry 01/09/08/18 09/08/18 07:23 08:00 08:33 Temperature 98.6 F Pulse Rate 95 Respiratory 24 24 18 Rate Blood Pressure 145/81 (mmHg) O2 Sat by Pulse 97 Oximetry Oxygen Devices in Use Now: None Appearance: Middle aged gentleman lying in bed in NAD. Eyes: - - Severe jaundice Ears/Nose/Mouth/Throat: Mucous Membranes Moist Neck: Trachea Midline Respiratory: Symmetrical Chest Expansion and Respiratory Effort, Clear to Auscultation Cardiovascular: RRR - Normal S1 and S2 Abdominal: - - Soft, NT, hepatomegaly, BS+ Neurological: - - Lethargic, withdrawals all 4 extremities from touch/pain, no focal neurodeficit - Nutrition: Malnutrition Diagnosis/Plan Malnutrition Assessment by Registered Dietitian: Malnutrition Assessment Clinical Characteristics Chronic,Moderate Malnutrition Assessment: - 20% wt loss x past year Criteria - Mild temporal muscle wasting - < 75% estimated energy expenditure > 1 month Malnutrition Assessment: - As able, advance diet Interventions - Will offer an oral nutritional supplement, following advancement, if PO is not consistently > 50% of meals Malnutrition Assessment: Goals 1. Ultimately, adequate PO intake to promote wt repletion and hydration w/o additional undesired wt loss Result Diagrams: 09/08/18 06:11 09/08/18 06:11 Assess/Plan/Problems-Billing Assessment: Mr Winchester is a 58yo M with PMH of essential tremor, hypogonadism, HTN, TB exposure, who is being followed as outpatient for progressive jaundice, sent to the hospital due to worsening LFTs. - Patient Problems (1) Alcoholic hepatitis Comment: - GI input appreciated - Dr Forte feels his clinical picture is compatible with alcoholic hepatitis. May be heterozygous for hemochromatosis but did not feel this is pure hemochromatosis. - Continue IV steroids. - His MDF is up to 24, INR remains normal. - Jenn describes EOTH intake much higher than what he described yesterday, with hidden bottles and prior episodes of withdrawal. - Will continue WAM protocol and Thiamine supplementation. - Will request GI follow up as his condition continues to decline. (2) Hepatic encephalopathy Comment: - Ammonia 95 today. - As he is more lethargic today, will keep him NPO and place NGT for medications and nutrition. - Continue Lactulose and Rifaximin. - There is no focal neurodeficit. (3) Pancreatic mass Comment: - Incidental finding on CT - 0.5cm pancreatic mass with no signs of obstruction. - MRCP reviewed. (4) Hypokalemia Comment: - EKG shows no new changes. - Replete. (5) Colonic thickening Comment: - Incidental finding of ascending and transverse colon thickening suggestive of colitis, but patient is asymptomatic. - Awaiting GI input about it. (6) Alcohol abuse Comment: - Patient stated he drinks to self treat his tremors and didn't think he needed assistance quitting, but his fiance provides collateral information he drinks much more than assumed and has gone through withdrawal before. - Continues to score on WAM - manage with Ativan. (7) Essential tremor Comment: - Continue benzos and Primidone. (8) HTN (hypertension) Comment: - Controlled off meds - continue to monitor. (9) DVT prophylaxis Comment: - SQ heparin. (10) Full code status Status and Disposition: Inpatient.
[2018-09-08] MEDS: Multivitamins/Minerals TAB SCH (11:39)
[2018-09-08] MEDS: Folic Acid TAB* 1 MG NG TUBE SCH (11:39)
[2018-09-08] MEDS: Primidone TAB(*) 50 MG SCH (11:40)
[2018-09-08] MEDS: RiFAXimin* 550 MG TAB G TUBE SCH ×2 (11:40→22:51)
[2018-09-08 13:17] LABS: Urine Collection Duration 24 h
[2018-09-08] MEDS: Thiamine IV* 500 MG in NS 0.9% 250 ML* 250 ML IV SCH ×3 (13:33→22:51)
--- NOTE | 2018-09-08 14:39 | PN ---
Hospitalist Progress Note Date of Service: 09/08/18 Patient re-evaluated at bedside. A little more awake now, opens eyes when called , but does not interact. NGT in place - all PO meds changed. No BM so far today - will add Lactulose enema. Fiance updated at bedside. On waiting list at [facility] and [place]. Continue to monitor closely - at this time VS are stable and able to protect airway, but at risk for sudden decompensation and need for ICU transfer (fiance aware).
[2018-09-08] MEDS: Lactulose 300 ML for PR* 10 GM/15 ML BTL PR SCH ×3 (15:52→23:25)
--- NOTE | 2018-09-08 17:01 | PN ---
Progress Note - Progress Note Date of Service: 09/08/18 Note: GI Follow Up Note Patient seen and examined. Sukh at bedside. Patient arousable but unable to answer questions in coherant manner. NG in place. HPI limited by AMS VS: 140/97, P- 90, R- 24, Tmax 99.1, 97% RA Gen: jaundiced, oriented to person only HEENT: sclera icteric, conjunctiva pink CVS: tachy s1s2 Resp: diminished at base Abd: soft, NT, ND, BS+ Ext: trace b/l edema Skin: scattered ecchymoses Lab wbc-10.1, hgb 12.2, plt 212 INR 1.01, Bili 24.50 (half direct/indirect) AST 155, alt 89, ALkP 626 Impression: Jaundice Hepatic Encephalopathy Component of alcoholic hepatitis Pancreatic lesion, variable size on imaging modalities Alcohol abuse Recommendations: Patient continues to decompensate. Agree with lactulose via NG and rectal. Titrate for 3-4 bm daily. Agree with Xifaxan, may be compounded to liquid if necessary. Biliribin continues to climb with stagnant alkphos and LFTs. His INR remarkably is normal. There certainly is a component of alcoholic hepatitis but I'm unclear if this is the only process, i'd expect some PT/INR dysfunction although cholestatic prodominant alch hep is possible with Zieve syndrome hemolysis. He has elevated %sat and ferritin but in acute phase hard to interpret. Certainly needs HFE testing in future for genotyping to r/o Hemochromatosis. Given the increasing bilirubin and variance of pancreatic head lesion on imaging (0.5 CT, 3cm U/s, 2cm MRI) even in absence of ductal dilation I think its prudent to transfer to facility with EUS capabilities. Discussed with Dr. Mendez who will arrange. MRCP revealed possible acalculus cholecystitis vs. hepatitis. Outside of elevated iron studies the workup to date has been unrevealing serologically. Would recommend checking anti herpes virus AB, anti zoster and HIV. In addition would get LDH, haptoglobin and peripheral smear for hemolysis. Would repeat blood cultures as well. Discussed extensively with sukh at bedside. Hamzah Foss DO 09/08/18 1700
[2018-09-08 20:51] LABS: Carcinoembryonic Antigen 7.2 ng/mL (0.1-5.0)
[2018-09-09] MEDS: Heparin VIAL(*) 5000 UNITS/ML VIAL (FIVE THOUSAND) SUBCUT SCH (06:38)
[2018-09-09 06:47] LABS: INR 1.01 (0.77-1.02)
[2018-09-09 06:50] LABS: Hematocrit 35 % (42-52); Hemoglobin 12.2 g/dl (14.0-18.0); Mean Corpuscular HGB Conc 35 g/dl (31-36); Mean Corpuscular Hemoglobin 34 pg (27-31); Mean Corpuscular Volume 97 fL (80-94); Platelet Count 235 10^3/ul (150-450); Red Blood Count 3.61 10^6/ul (4.00-5.40); Red Cell Distribution Width 17 % (10.5-15); White Blood Count 11.2 10^3/ul (3.5-10.8)
[2018-09-09 06:52] LABS: Albumin 2.6 g/dL (3.2-5.2); Albumin/Globulin Ratio 1.2 (1-3); BUN/Creatinine Ratio 13.2 (8-20); Calcium 8.3 mg/dL (8.6-10.3); EGFR African American 103.5 (>60); EGFR Non-African American 85.6 (>60); Globulin 2.1 g/dL (2-4); Potassium 2.9 mmol/L (3.5-5.0); Total Protein 4.7 g/dL (6.4-8.9)
[2018-09-09 06:55] LABS: Total Bilirubin 27.9 mg/dL (0.2-1.0)
[2018-09-09] MEDS ORDERED: Potassium Chloride LIQUID* 20 MEQ PACKET NG TUBE ONE (07:24)
[2018-09-09 07:43] LABS: Immature Granulocytes 4 % (0-9); Lymphocytes % 6 %; Metamyelocytes % 1 % (0-2); Monocytes % 8 %; Myelocytes % 3 % (0-1); Neutrophil % 82 %
[2018-09-09 07:44] LABS: ABS Neutrophils 9.6 10^3/ul (1.5-7.7)
[2018-09-09] MEDS: KCL 10 MEQ/50 ML IVPREMIX* 10 MEQ/50 ML BAG IV SCH ×4 (07:56→12:49)
[2018-09-09] MEDS: methylPREDNISolone SOD 40 MG* 1 ML VIAL IV SCH (07:57)
[2018-09-09] MEDS: Multivitamins/Minerals TAB SCH (07:58)
[2018-09-09] MEDS: RiFAXimin* 550 MG TAB G TUBE SCH ×2 (07:58→22:00)
[2018-09-09] MEDS: Folic Acid TAB* 1 MG NG TUBE SCH (07:58)
[2018-09-09] MEDS: Primidone TAB(*) 50 MG SCH (07:58)
[2018-09-09] MEDS: Lactulose 300 ML for PR* 10 GM/15 ML BTL PR SCH ×3 (09:06→21:59)
[2018-09-09] MEDS: LORazepam INJ* 2 MG/ML 1 ML VIAL IV PUSH SCH (11:29)
[2018-09-09] MEDS ORDERED: Acetaminophen TAB* 325 MG PO PRN (11:46)
[2018-09-09] MEDS ORDERED: NS 0.9% 1000 ML** 1,000 ML IV ONE (11:50)
[2018-09-09] MEDS ORDERED: Lactated Ringers 1000 ML Bag* 1,000 ML IV.FLUID IV ONE (11:57)
[2018-09-09] MEDS: Cefepime 1 GM in Dextrose(*) 1 GM/50 ML BAG IV SCH (12:25)
--- NOTE | 2018-09-09 12:26 | PN ---
Subjective Date of Service: 09/09/18 Interval History: HOSPITALIST PROGRESS NOTE Patient seen and examined at bedside. Care reviewed and d/w Charu Tsai RN. He was a little more awake around 9:30AM when I first visited him. Opened eyes when touched, perked up when daughter arrived to visit him. Around 11:40AM RN called because patient had fever 102F. Re-evaluated at bedside - more lethargic now, tachycardic. Code sepsis called. Family History: Unchanged from Admission Social History: Unchanged from Admission Past Medical History: Unchanged from Admission Objective Active Medications: Acetaminophen (Tylenol Tab*) 650 mg PO Q6H PRN PRN Reason: Pain or fever Folic Acid (Folvite Tab*) 1 mg NG TUBE DAILY [facility] Last Admin: 09/09/18 07:58 Dose: 1 mg Heparin Sodium (Porcine) (Heparin Vial(*)) 5,000 units SUBCUT Q8HR [facility] Last Admin: 09/09/18 06:38 Dose: 5,000 units Cefepime HCl (Maxipime 1 Gm In Dextrose Duplex (*)) 1 gm in 50 mls @ 100 mls/ hr IV Q12H [facility] Metronidazole/Sodium Chloride (Flagyl 500 Mg Ivpb*) 500 mg in 100 mls @ 100 mls /hr IVPB Q8H [facility] Lactulose (Lactulose*) 30 ml NG TUBE QID [facility] Last Admin: 09/09/18 07:56 Dose: 30 ml Lactulose (Lactulose 300 Ml For Pr*) 200 gm MD QID [facility] Last Admin: 09/09/18 09:06 Dose: 200 gm Lorazepam (Ativan Inj*) 0 - 6 mg IV PUSH .PER [facility] PROTOCOL [facility]; Protocol Last Admin: 09/09/18 11:29 Dose: 1 mg Methylprednisolone Sodium Succinate (Solu-Medrol 40 Mg) 40 mg IV DAILY [facility] Last Admin: 09/09/18 07:57 Dose: 40 mg Multivitamins/Minerals (Theragran/Minerals Tab*) 1 tab .SEE ORDER DAILY [facility] Last Admin: 09/09/18 07:58 Dose: 1 tab Primidone (Mysoline Tab(*)) 50 mg .SEE ORDER DAILY [facility] Last Admin: 09/09/18 07:58 Dose: 50 mg Rifaximin (Xifaxan*) 550 mg G TUBE BID [facility] Last Admin: 09/09/18 07:58 Dose: 550 mg Vital Signs - 8 hr 09/09/18 09/09/18 09/09/18 05:59 07:38 11:16 Temperature 99.7 F 98.5 F Pulse Rate 92 102 89 Respiratory 24 19 19 Rate Blood Pressure 152/88 155/85 176/86 (mmHg) O2 Sat by Pulse 96 98 Oximetry 09/09/18 09/09/18 11:29 11:48 Temperature 102 F Pulse Rate Respiratory 18 Rate Blood Pressure (mmHg) O2 Sat by Pulse Oximetry Oxygen Devices in Use Now: Nasal Cannula Appearance: Severely jaundiced gentleman lying in bed in NAD. Eyes: - - Severe jaundice Ears/Nose/Mouth/Throat: - - Dry MM Neck: Trachea Midline Respiratory: Symmetrical Chest Expansion and Respiratory Effort, Clear to Auscultation Cardiovascular: RRR - Normal S1 and S2, tachy Abdominal: - - Soft, non tender hepatomegaly unchanged from admission, ND, BS+ Neurological: - - Lethargic, opened eyes when touched - Nutrition: Malnutrition Diagnosis/Plan Malnutrition Assessment by Registered Dietitian: Malnutrition Assessment Clinical Characteristics Chronic,Moderate Malnutrition Assessment: - 20% wt loss x past year Criteria - Mild temporal muscle wasting - < 75% estimated energy expenditure > 1 month Malnutrition Assessment: - As able, advance diet Interventions - Will offer an oral nutritional supplement, following advancement, if PO is not consistently > 50% of meals Malnutrition Assessment: Goals 1. Ultimately, adequate PO intake to promote wt repletion and hydration w/o additional undesired wt loss Result Diagrams: 09/09/18 12:00 09/09/18 06:27 Assess/Plan/Problems-Billing Assessment: Mr Winchester is a 58yo M with PMH of essential tremor, hypogonadism, HTN, TB exposure, who is being followed as outpatient for progressive jaundice, sent to the hospital due to worsening LFTs. - Patient Problems (1) Sepsis Comment: - Now meets sepsis criteria with fever and tachycardia. CBC showed left shift with myelocites. - qSOFA is 1. - Source is unclear at this time - had GB wall thickening on admission but no complaints of abdominal pain and no findings on physical examination to support diagnosis. Will repeat US. - Received IV bolus, Cefepime, and Flagyl. - Blood cultures, LA, CBC, CMP ordered. - Check CxR, UA. (2) Alcoholic hepatitis Comment: - GI input appreciated - Dr Forte feels his clinical picture is compatible with alcoholic hepatitis. May be heterozygous for hemochromatosis but did not feel this is pure hemochromatosis. - Dr Foss thinks there is a component of alcoholic hepatitis, but his INR remains normal, despite bilirubin climbing. Recomended HFE testing in the future for hemochromatosis. With his pancreatic lesion, even without ductal dilatation, recommended EUS - patient is on waiting lists at [facility] and [place]. - Continue IV steroids. - His MDF is up to 27, INR remains normal. MELD is 19. - Doug describes EOTH intake much higher than what he described on admission, with hidden bottles and prior episodes of withdrawal. - Will continue WAM protocol and Thiamine supplementation. (3) Hepatic encephalopathy Comment: - Ammonia 100 today. - Continue Lactulose via NGT and enema. (4) Pancreatic mass Comment: - Incidental finding on CT - 0.5cm pancreatic mass with no signs of obstruction. - MRCP reviewed. - Dr Foss recommended EUS - awaiting bed availability at [facility]. - CEA is 7.2. (5) Hypokalemia Comment: - EKG shows no new changes today. - Replete. (6) Colonic thickening Comment: - Incidental finding of ascending and transverse colon thickening suggestive of colitis, but patient is asymptomatic. - Now he's septic, would need to cover possible colitis too - continue Cefepime and Metronidazole. (7) Alcohol abuse Comment: - Patient stated he drinks to self treat his tremors and didn't think he needed assistance quitting, but his fiance provides collateral information he drinks much more than assumed and has gone through withdrawal before. - Continues to score on WAM - manage with Ativan. (8) Moderate protein-calorie malnutrition Comment: - Dietitian input appreciated - 20% wt loss x past year, with mild temporal muscle wasting, and < 75% estimated energy expenditure > 1 month. - Received tube feeds briefly today, but now has sepsis with possible intraabdominal source - hold TF for now. (9) Essential tremor Comment: - Continue benzos and Primidone. (10) HTN (hypertension) Comment: - Controlled off meds - continue to monitor. (11) DVT prophylaxis Comment: - SQ heparin. (12) Full code status Status and Disposition: Inpatient. Family (doug, ex-, daughter) updated at bedside. Aware of complicated case and poor prognosis. They remain optimistic he's going to improve. 50 minutes Critical care time.
[2018-09-09 12:31] LABS: Hematocrit 36 % (42-52); Hemoglobin 12.3 g/dl (14.0-18.0); Mean Corpuscular HGB Conc 34 g/dl (31-36); Mean Corpuscular Hemoglobin 33 pg (27-31); Mean Corpuscular Volume 98 fL (80-94); Mean Platelet Volume 8.2 fL (7.4-10.4); Platelet Count 243 10^3/ul (150-450); Red Blood Count 3.69 10^6/ul (4.00-5.40); Red Cell Distribution Width 17 % (10.5-15); White Blood Count 11.6 10^3/ul (3.5-10.8)
[2018-09-09 12:48] LABS: Albumin 2.7 g/dL (3.2-5.2); Albumin/Globulin Ratio 1.4 (1-3); BUN/Creatinine Ratio 14.3 (8-20); C Reactive Protein 18.84 mg/L (<8.01); EGFR African American 103.5 (>60); EGFR Non-African American 85.6 (>60); Potassium 3.8 mmol/L (3.5-5.0); Total Protein 4.7 g/dL (6.4-8.9)
[2018-09-09 12:49] LABS: Total Bilirubin 28.4 mg/dL (0.2-1.0); Troponin I 0.05 ng/mL (<0.04)
[2018-09-09 12:56] LABS: Immature Granulocytes 6 % (0-9); Lymphocytes % 16 %; Metamyelocytes % 2 % (0-2); Monocytes % 6 %; Myelocytes % 2 % (0-1); Neutrophil % 72 %
[2018-09-09 12:57] LABS: ABS Neutrophils 9.05 10^3/ul (1.5-7.7)
[2018-09-09] MEDS: metroNIDAZOLE IV 500 MG/100ML* 500 MG/100 ML BAG IVPB SCH ×2 (13:13→21:26)
--- NOTE | 2018-09-09 13:27 | HP ---
History of Present Illness - History of Present Illness Reason for Visit: ICU consultation for altered mental status and sepsis History of Present Illness: 58 M with hx/o chronic alcohol use admitted on 09/05 for hepatitis. Patient has a sepsis alert activated due to hyperthermia and hypotension, today. Patient is not a good historian due to acute encephalopathy. History obtained from chart review. - Past Medical History Gastrointestinal: Other - cirrhosis Endocrine: Other - hypogonadism Review of Systems - Review of Systems Other: not optimally assessed due to patient's mental status - Medications/Allergies Allergies/Adverse Reactions: Allergies Allergy/AdvReac Type Severity Reaction Status Date / Time amoxicillin Allergy GI Upset Verified 09/05/18 11:10 Medications: Current Medications Acetaminophen (Tylenol Tab*) 650 mg PO Q6H PRN PRN Reason: Pain or fever Folic Acid (Folvite Tab*) 1 mg NG TUBE DAILY [facility] Last Admin: 09/09/18 07:58 Dose: 1 mg Heparin Sodium (Porcine) (Heparin Vial(*)) 5,000 units SUBCUT Q8HR [facility] Last Admin: 09/09/18 06:38 Dose: 5,000 units Cefepime HCl (Maxipime 1 Gm In Dextrose Duplex (*)) 1 gm in 50 mls @ 100 mls/ hr IV Q12H [facility] Last Admin: 09/09/18 12:25 Dose: 100 mls/hr Metronidazole/Sodium Chloride (Flagyl 500 Mg Ivpb*) 500 mg in 100 mls @ 100 mls /hr IVPB Q8H [facility] Last Admin: 09/09/18 13:13 Dose: 100 mls/hr Lactated Ringer's (Lactated Ringers 1000 Ml Bag*) 1,000 mls @ 150 mls/hr IV PER RATE [facility] Lactulose (Lactulose*) 30 ml NG TUBE QID [facility] Last Admin: 09/09/18 07:56 Dose: 30 ml Lactulose (Lactulose 300 Ml For Pr*) 200 gm [place] QID [facility] Last Admin: 09/09/18 09:06 Dose: 200 gm Lorazepam (Ativan Inj*) 0 - 6 mg IV PUSH .PER [facility] PROTOCOL [facility]; Protocol Last Admin: 09/09/18 11:29 Dose: 1 mg Methylprednisolone Sodium Succinate (Solu-Medrol 40 Mg) 40 mg IV DAILY [facility] Last Admin: 09/09/18 07:57 Dose: 40 mg Multivitamins/Minerals (Theragran/Minerals Tab*) 1 tab .SEE ORDER DAILY [facility] Last Admin: 09/09/18 07:58 Dose: 1 tab Primidone (Mysoline Tab(*)) 50 mg .SEE ORDER DAILY [facility] Last Admin: 09/09/18 07:58 Dose: 50 mg Rifaximin (Xifaxan*) 550 mg G TUBE BID [facility] Last Admin: 09/09/18 07:58 Dose: 550 mg Exam - Exam Vital Signs: Vital Signs (72 hours) 09/06/18 09/06/18 09/06/18 15:32 17:28 19:13 Temperature 98.2 F 97.1 F 98.0 F Pulse Rate 88 101 102 Respiratory 18 18 18 Rate Blood Pressure 129/84 136/83 164/86 (mmHg) O2 Sat by Pulse 97 96 98 Oximetry 09/06/18 09/06/18 09/06/18 19:22 20:00 20:54 Temperature 98.2 F Pulse Rate 88 Respiratory 20 22 20 Rate Blood Pressure 147/86 (mmHg) O2 Sat by Pulse 94 Oximetry 09/06/18 09/06/18 09/06/18 21:26 22:24 23:00 Temperature 97.8 F Pulse Rate 90 Respiratory 16 16 20 Rate Blood Pressure 137/104 (mmHg) O2 Sat by Pulse 100 Oximetry 09/06/18 09/07/18 09/07/18 23:06 00:05 00:30 Temperature Pulse Rate Respiratory 16 18 16 Rate Blood Pressure (mmHg) O2 Sat by Pulse Oximetry 09/07/18 09/07/18 09/07/18 01:05 01:26 03:02 Temperature 99.2 F Pulse Rate 90 Respiratory 16 16 16 Rate Blood Pressure 139/103 (mmHg) O2 Sat by Pulse 96 Oximetry 09/07/18 09/07/18 09/07/18 03:07 03:15 04:30 Temperature Pulse Rate 100 Respiratory 19 16 16 Rate Blood Pressure 138/64 (mmHg) O2 Sat by Pulse Oximetry 09/07/18 09/07/18 09/07/18 05:08 05:14 06:42 Temperature 97.9 F Pulse Rate 86 Respiratory 20 16 16 Rate Blood Pressure 137/61 (mmHg) O2 Sat by Pulse 96 Oximetry 09/07/18 09/07/18 09/07/18 07:47 08:00 08:08 Temperature 98.1 F Pulse Rate 93 Respiratory 16 18 18 Rate Blood Pressure 138/91 (mmHg) O2 Sat by Pulse 95 Oximetry 09/07/18 09/07/18 09/07/18 09:13 09:16 09:53 Temperature 98.3 F Pulse Rate 104 Respiratory 26 26 26 Rate Blood Pressure 126/66 (mmHg) O2 Sat by Pulse 97 Oximetry 09/07/18 09/07/18 09/07/18 11:08 11:55 12:37 Temperature 98.7 F Pulse Rate 76 Respiratory 22 16 16 Rate Blood Pressure 132/77 (mmHg) O2 Sat by Pulse 97 Oximetry 09/07/18 09/07/18 09/07/18 13:13 13:54 14:09 Temperature 97.9 F Pulse Rate 89 Respiratory 18 20 18 Rate Blood Pressure 150/84 (mmHg) O2 Sat by Pulse 96 Oximetry 09/07/18 09/07/18 09/07/18 15:22 15:50 16:08 Temperature 98.4 F Pulse Rate 96 Respiratory 20 20 20 Rate Blood Pressure 143/94 (mmHg) O2 Sat by Pulse 95 Oximetry 09/07/18 09/07/18 09/07/18 17:09 17:40 17:49 Temperature 99.0 F Pulse Rate 82 Respiratory 22 20 20 Rate Blood Pressure 140/78 (mmHg) O2 Sat by Pulse 95 Oximetry 09/07/18 09/07/18 09/07/18 18:35 19:00 20:07 Temperature 98.3 F Pulse Rate 90 Respiratory 20 20 20 Rate Blood Pressure 153/83 (mmHg) O2 Sat by Pulse 97 Oximetry 09/07/18 09/07/18 09/07/18 20:10 21:16 22:00 Temperature 99.2 F 99.1 F Pulse Rate 91 95 Respiratory 20 20 16 Rate Blood Pressure 147/81 160/90 (mmHg) O2 Sat by Pulse 96 96 Oximetry 09/07/18 09/07/18 09/08/18 22:10 22:36 00:12 Temperature Pulse Rate Respiratory 20 20 21 Rate Blood Pressure (mmHg) O2 Sat by Pulse Oximetry 09/08/18 09/08/18 09/08/18 03:15 03:49 05:00 Temperature 98.5 F Pulse Rate 92 Respiratory 18 20 20 Rate Blood Pressure 142/90 (mmHg) O2 Sat by Pulse 96 Oximetry 09/08/18 09/08/18 09/08/18 05:32 06:00 07:10 Temperature 98.8 F Pulse Rate 94 Respiratory 20 20 18 Rate Blood Pressure 148/79 (mmHg) O2 Sat by Pulse 94 Oximetry 09/08/18 09/08/18 09/08/18 07:23 08:00 08:33 Temperature 98.6 F Pulse Rate 95 Respiratory 24 24 18 Rate Blood Pressure 145/81 (mmHg) O2 Sat by Pulse 97 Oximetry 09/08/18 09/08/18 09/08/18 09:40 10:48 12:00 Temperature 99.7 F 98.2 F Pulse Rate 89 92 Respiratory 24 24 20 Rate Blood Pressure 142/74 140/78 (mmHg) O2 Sat by Pulse 95 99 Oximetry 09/08/18 09/08/18 09/08/18 14:11 14:15 14:36 Temperature 99.1 F Pulse Rate 90 Respiratory 24 20 Rate Blood Pressure 140/97 (mmHg) O2 Sat by Pulse 97 Oximetry 09/08/18 09/08/18 09/08/18 16:17 18:20 18:33 Temperature 100.1 F Pulse Rate 92 Respiratory 20 20 20 Rate Blood Pressure 155/94 (mmHg) O2 Sat by Pulse 96 Oximetry 09/08/18 09/08/18 09/08/18 19:29 19:45 22:21 Temperature 98.7 F 99.1 F Pulse Rate 97 101 Respiratory 20 20 20 Rate Blood Pressure 162/95 160/95 (mmHg) O2 Sat by Pulse 100 99 Oximetry 09/08/18 09/08/18 09/09/18 22:58 23:35 00:10 Temperature Pulse Rate Respiratory 20 20 20 Rate Blood Pressure (mmHg) O2 Sat by Pulse Oximetry 09/09/18 09/09/18 09/09/18 00:18 02:21 05:59 Temperature 98.3 F 99.7 F Pulse Rate 93 92 Respiratory 16 24 Rate Blood Pressure 160/99 152/88 (mmHg) O2 Sat by Pulse 97 100 96 Oximetry 09/09/18 09/09/18 09/09/18 07:38 08:00 11:16 Temperature 98.5 F Pulse Rate 102 89 Respiratory 19 16 19 Rate Blood Pressure 155/85 176/86 (mmHg) O2 Sat by Pulse 98 Oximetry 09/09/18 09/09/18 09/09/18 11:29 11:48 11:55 Temperature 102 F Pulse Rate 101 Respiratory 18 Rate Blood Pressure (mmHg) O2 Sat by Pulse Oximetry 09/09/18 09/09/18 09/09/18 12:20 12:24 12:30 Temperature 98.4 F Pulse Rate 88 Respiratory 11 18 20 Rate Blood Pressure 164/105 164/105 170/95 (mmHg) O2 Sat by Pulse 96 96 97 Oximetry 09/09/18 09/09/18 09/09/18 12:44 12:45 13:00 Temperature Pulse Rate Respiratory 17 15 24 Rate Blood Pressure 144/107 163/99 171/100 (mmHg) O2 Sat by Pulse 97 96 97 Oximetry 09/09/18 13:01 Temperature Pulse Rate Respiratory 22 Rate Blood Pressure (mmHg) O2 Sat by Pulse Oximetry General: No acute distress, Other - easily arousable, jaundiced HEENT: Atraumatic, Other - mm dry Lungs: Clear to auscultation Cardiovascular: Normal S1, Normal S2 Abdomen: Normal bowel sounds, Soft, No tenderness Extremities: No clubbing, No cyanosis, No edema Skin: No breakdown, No significant lesion - ecchymosis in LE by the knees Neurological: Other - non focal Assessment/Plan - Assessment/Plan Assessment: 58 M with hx/o alcohol abuse being referred to ICU for acute encephalopathy and sepsis alert #Sepsis # Alcoholic hepatitis # Acute hepatic encephalopathy # Hyperbilirubinemia # hypernatremia # Pancreatic mass # Colitis # Malnutrition Plan: #Sepsis # Alcoholic hepatitis # Acute hepatic encephalopathy # Hyperbilirubinemia # hypernatremia due to dehydration # Pancreatic mass # Colitis # Malnutrition - hemodynamics stable - Strict I/Os - BCX x 2 - empiric antibiotic- cefepime and flagyl. Consider zosyn if concern for aspiration - agree with systemic steroids - on folic acid. Consider adding thiamine - ETCO2 recommended - continuous Pox and cardiac monitoring - lactulose to titrate to 2 BMs daily - On rifaxamin DVT ppx GI ppx Code status: full Dispo: agree with managing patient in the ICU due to acute encephalopathy and high risk of deterioration. 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 Please reconsult if any concerns/or changes CC time: 75 minutes
[2018-09-09 13:49] LABS: Erythrocyte Sed Rate 36 mm/Hr (0-20)
[2018-09-09 13:55] LABS: Urine Appearance Clear; Urine Bilirubin 2+ (Negative); Urine Blood Negative (Negative); Urine Color Amber; Urine Glucose Negative (Negative); Urine Ketones Trace (Negative); Urine Nitrite Negative (Negative); Urine Protein Negative (Negative); Urine Specific Gravity 1.012 (1.010-1.030); Urine Urobilinogen Positive (Negative)
[2018-09-09] MEDS: Lactated Ringers 1000 ML Bag* 1,000 ML IV SCH ×2 (14:10→19:14)
[2018-09-09] MEDS ORDERED: Iodixanol* (CONTRAST) 320 MG/ML 100 ML SDV IV ONE (15:26)
--- NOTE | 2018-09-09 17:11 | PN ---
Hospitalist Progress Note Date of Service: 09/09/18 HOSPITALIST ADDENDUM Patient re-evaluated at bedside. Lethargic, opens eyes when touched, unchanged from prior evaluation. Laboratory Tests 09/09/18 09/09/18 09/09/18 06:27 12:00 12:00 WBC 11.6 H Hgb 12.3 L Hct 36 L Plt Count 243 INR (Anticoag Therapy) 1.01 Sodium 148 H Potassium 3.8 Chloride 109 Carbon Dioxide 32 Anion Gap 7 BUN 13 Creatinine 0.91 Glucose 128 H Lactic Acid Calcium 8.0 L Total Bilirubin 28.40 H* AST 138 H ALT 90 H Alkaline Phosphatase 592 H Troponin I 0.05 H* C-Reactive Protein 18.84 H Total Protein 4.7 L Albumin 2.7 L 09/09/18 12:00 Lactic Acid < 0.3 L Calcium Total Bilirubin AST ALT Alkaline Phosphatase Troponin I C-Reactive Protein Total Protein Albumin CT BRAIN WO IMPRESSION: INTRAPARENCHYMAL HEMATOMA OF THE LEFT BASAL GANGLIA WITH MINIMAL VASOGENIC EDEMA MEASURING UP TO 4.2 CM IN SIZE WITHOUT SHIFT. FINDINGS WERE REVIEWED WITH DR. BAILON AT APPROXIMATELY 4:27 PM ON SEPTEMBER 09, 2018 CT ABD/PEL W IMPRESSION: 1. AGAIN NOTED IS LOW-ATTENUATION LESION OF THE HEAD OF THE PANCREAS MEASURING 0.5 CM [address] THE CURRENT CT EXAMINATION. 2. HEPATOMEGALY WITH FATTY INFILTRATION OF LIVER. 3. AGAIN NOTED IS MUCOSAL THICKENING WITH PERICOLONIC INFLAMMATORY CHANGE OF THE ASCENDING COLON AND HEPATIC FLEXURE SUGGESTIVE OF COLITIS. Family (ex-, fiance, fiance's daughter, brother, and 2 sisters) updated at bedside. Provider further information patient does have h/o brain tumors on multiple family members, breast CA, colon CA. Clinical picture is even more complex now: - Alcoholic hepatitis not enough to explain his jaundice, suspect another underlying process (malignancy? cholangitis?) playing a role; - Lethargy secondary to hepatic encephalopathy, but now also with cerebral hemorrhage. He doesn't have a h/o HTN or DM, was only on SQ heparin; has family h/o brain tumor, colon CA - this could be a primary brain tumor vs mets with hemorrhage. Will check CT chest, MRI brain (without contrast tonight, but can have contrast in 48h; - Sepsis source is unclear: GB? cholangitis? colitis? pneumonia? - follow cultures and continue Cefepime and Metronidazole. Family understands this is a complex situation with poor prognosis - they believe he would want to be a Full code and be treated aggressively while further w/u done. Will continue to monitor closely in ICU. At this point he's not medically stable for EUS, so will cancel transfer to [facility]. Transfer center notified. Request # is [id number] and can be used in the future if plan to transfer again.
--- NOTE | 2018-09-09 18:41 | PN ---
Sepsis Event Evaluation Date of Evaluation: 09/09/18 Time of Evaluation: 15:50 Current Stage of Sepsis: Sepsis Vital Signs - Last 12 Hours: Vital Signs - 12 hr Temp Pulse Resp BP Pulse Ox 09/09/18 13:01 22 09/09/18 13:00 24 171/100 97 09/09/18 12:45 15 163/99 96 09/09/18 12:44 17 144/107 97 09/09/18 12:30 20 170/95 97 09/09/18 12:24 18 164/105 96 09/09/18 12:20 98.4 F 88 11 164/105 96 09/09/18 11:55 101 09/09/18 11:48 102 F 09/09/18 11:29 18 09/09/18 11:16 89 19 176/86 98 09/09/18 08:00 16 09/09/18 07:38 98.5 F 102 19 155/85 Lactic Acid: 09/05/18 09/09/18 13:25 12:00 Lactic Acid 2.2 H* < 0.3 L - Cardiopulmonary Exam Capillary Refill: Immediate Respiratory: Symmetrical Chest Expansion and Respiratory Effort, Clear to Auscultation Cardiovascular: NL Sounds; No Murmurs; No JVD, RRR - Peripheral Pulse Exam Radial Pulses: Bilateral Normal Pedal Pulses: Bilateral Normal Posterior Tibial Pulse: Bilateral Normal Femoral Pulses: Bilateral Normal Popliteal Pulses: Bilateral Normal - Skin Exam Skin Exam: Normal Turgor - Tiffany Coma Scale Best Eye Response: 2 - To Pain Best Motor Response: 4 - Withdraws Best Verbal Response: 2 - Incomprehensible Words - Patient has hepatic encephalopathy and cerebral hemorrhage Coma Scale Total: 8 Assess/Plan/Problems-Billing Assessment: Mr Winchester is a 58yo M with PMH of essential tremor, hypogonadism, HTN, TB exposure, who is being followed as outpatient for progressive jaundice, sent to the hospital due to worsening LFTs. - Patient Problems (1) Sepsis Comment: - Source is still unclear, suspect GI - continue Cefepime and Metronidazole. - Lactic acid was 0.3, no need to repeat at this point. - Continue IVF. Status and Disposition: Inpatient. Family (fiance, ex-, daughter) updated at bedside. Aware of complicated case and poor prognosis. They remain optimistic he's going to improve. 50 minutes Critical care time.
[2018-09-09] MEDS: Thiamine IV* 250 MG in NS 0.9% 100 ML* 100 ML IV SCH (19:29)
[2018-09-09] MEDS: hydrALAZINE IV* 20 MG/ML VIAL IV SLOW PU PRN (21:27)
[2018-09-10] MEDS: Lactated Ringers 1000 ML Bag* 1,000 ML IV SCH ×4 (01:40→22:55)
[2018-09-10] MEDS: Cefepime 1 GM in Dextrose(*) 1 GM/50 ML BAG IV SCH ×3 (01:41→23:58)
[2018-09-10] MEDS: metroNIDAZOLE IV 500 MG/100ML* 500 MG/100 ML BAG IVPB SCH ×3 (05:09→20:53)
[2018-09-10 05:44] LABS: INR 0.99 (0.77-1.02)
[2018-09-10 05:45] LABS: Hematocrit 31 % (42-52); Hemoglobin 10.9 g/dl (14.0-18.0); Mean Corpuscular HGB Conc 35 g/dl (31-36); Mean Corpuscular Hemoglobin 34 pg (27-31); Mean Corpuscular Volume 98 fL (80-94); Mean Platelet Volume 7.9 fL (7.4-10.4); Platelet Count 201 10^3/ul (150-450); Red Blood Count 3.21 10^6/ul (4.00-5.40); Red Cell Distribution Width 16 % (10.5-15); White Blood Count 10.7 10^3/ul (3.5-10.8)
[2018-09-10 06:02] LABS: Albumin 2.2 g/dL (3.2-5.2); Albumin/Globulin Ratio 1.2 (1-3); BUN/Creatinine Ratio 16.7 (8-20); Calcium 7.9 mg/dL (8.6-10.3); EGFR African American 135.7 (>60); EGFR Non-African American 112.1 (>60); Globulin 1.9 g/dL (2-4); Total Protein 4.1 g/dL (6.4-8.9)
[2018-09-10 06:12] LABS: Potassium 2.9 mmol/L (3.5-5.0)
[2018-09-10 06:13] LABS: Total Bilirubin 26.2 mg/dL (0.2-1.0)
[2018-09-10] MEDS: Lactulose 300 ML for PR* 10 GM/15 ML BTL PR SCH ×5 (08:32→20:56)
[2018-09-10] MEDS: Folic Acid TAB* 1 MG NG TUBE SCH (08:59)
[2018-09-10] MEDS ORDERED: Dexamethasone IV* 4 MG in NS 0.9% 50 ML* 50 ML IVPB SCH (09:00)
[2018-09-10] MEDS: Multivitamins/Minerals TAB SCH (09:00)
[2018-09-10] MEDS: RiFAXimin* 550 MG TAB G TUBE SCH ×2 (09:00→21:05)
[2018-09-10] MEDS: Primidone TAB(*) 50 MG SCH (09:02)
--- NOTE | 2018-09-10 09:23 | CONSULT ---
Consult Consult: Neurosurgery Consult Date of Admission: 09/05/18 Date of Consult: 09/10/18 Reason for Consult: Cerebral hemorrhage Referring Provider: Dr. Mendez Primary Care Provider: Dr. Hartley HPI: This is a 58 year old male admitted to [facility] with elevated LFTs for the past several weeks and jaundice. He is undergoing extensive workup for the elevated LFTs. The patient is unable to provide a history secondary to altered mental status and acute encephalopathy, his fiancee provides history. She states that he was doing well until Wednesday night when he began experiencing withdrawals. He became disoriented and his speech was unclear. She states that he was started on medication to help with this. Since then, his mental status has fluctuated between being able to answer questions appropriately and completely disoriented with garbled speech. Patient is able to deny headache and abdominal pain. CT brain was obtained and showed possible hemorrhage. MRI brain was obtained to differentiate hemorrhage v mass. Past Medical History: 1. Jaundice 2. Elevated LFTs 3. Essential tremor 4. HTN 5. Exposure to TB 6. Low testosterone 7. Alcohol abuse Medications: 1. Acetaminophen (Tylenol Tab*) 650 mg PO Q6H PRN PRN Reason: Pain or fever 2. Dexamethasone Sodium Phosphate (Decadron Iv*) 4 mg IV SLOW PU Q6H MICHAEL 3. Folic Acid (Folvite Tab*) 1 mg NG TUBE DAILY [facility] Last Admin: 09/10/18 08:59 Dose: 1 mg 4. Hydralazine HCl (Apresoline Iv*) 5 mg IV SLOW PU Q6H PRN PRN Reason: HTN Last Admin: 09/09/18 21:27 Dose: 5 mg 5. Cefepime HCl (Maxipime 1 Gm In Dextrose Duplex (*)) 1 gm in 50 mls @ 100 mls /hr IV Q12H MICHAEL Last Admin: 09/10/18 01:41 Dose: 100 mls/hr 6. Metronidazole/Sodium Chloride (Flagyl 500 Mg Ivpb*) 500 mg in 100 mls @ 100 mls/hr IVPB Q8H [facility] Last Admin: 09/10/18 05:09 Dose: 100 mls/hr 7. Lactated Ringer's (Lactated Ringers 1000 Ml Bag*) 1,000 mls @ 150 mls/hr IV PER RATE MICHAEL Last Admin: 09/10/18 08:27 Dose: 150 mls/hr 8. Thiamine HCl 250 mg/ Sodium (Chloride) 102.5 mls @ 205 mls/hr IV Q24H [facility] Stop: 09/14/18 16:59 Last Admin: 09/09/18 19:29 Dose: 205 mls/hr 9. Lactulose (Lactulose*) 30 ml NG TUBE QID [facility] Last Admin: 09/10/18 08:59 Dose: 30 ml 10. Lactulose (Lactulose 300 Ml For Pr*) 200 gm IA QID [facility] Last Admin: 09/10/18 08:33 Dose: Not Given 11. Lorazepam (Ativan Inj*) 0 - 6 mg IV PUSH .PER [facility] PROTOCOL [facility]; Protocol Last Admin: 09/09/18 11:29 Dose: 1 mg 12. Multivitamins/Minerals (Theragran/Minerals Tab*) 1 tab .SEE ORDER DAILY [facility] Last Admin: 09/10/18 09:00 Dose: 1 tab 13. Primidone (Mysoline Tab(*)) 50 mg .SEE ORDER DAILY [facility] Last Admin: 09/10/18 09:02 Dose: 50 mg 14. Rifaximin (Xifaxan*) 550 mg G TUBE BID [facility] Last Admin: 09/10/18 09:00 Dose: 550 mg Allergies: 1. Amoxicillin Social History: Per the patient's fiancee and previous reports, patient has no history of smoking but was consuming an unclear amount of beer daily (3-6 beers or more) ROS: Other than stated in HPI, unable to obtain secondary to altered mental status. Physical Exam: Vital Signs: Temp Pulse Resp BP Pulse Ox 98.6 F 64 18 139/87 99 09/10/18 09:01 09/10/18 09:01 09/10/18 09:01 09/10/18 09:00 09/10/18 09:01 General: Laying comfortably in bed, NAD. Jaundice. Drowsy. HEENT: Head is normocephalic and atraumatic. Pupils and reactive. Sclerae icteric. No facial droop. NG tube in place. CV: Radial and pedal pulses 2+ and equal. Lungs: Breathing is nonlabored. O2 via NC. Abdomen: The abdomen is soft. normoactive bowel sounds. Mild guarding with palpation of abdomen. Neuro: Speech is garbled. Unable to answer orientation questions. Moves all 4 extremities, bends knees toward head, wiggles toes bilaterally, prop maker strength 3/ 5. Able to lift left arm higher and longer duration than right. Unable to follow other strength testing commands. Sensation intact throughout. Pupils 6- 7mm and reactive bilaterally. Shrugs shoulders equally, tongue protrudes midline. Extremities: Ecchymosis to bilateral upper and lower extremities. Imagin. CT brain on 09/09/18 shows left intraparenchymal hemorrhage 2. MRI brain on 09/09/18 shows left intraparenchymal hemorrhage Assessment/Plan: This is a 58 year old male admitted for work up of elevated LFTs and jaundice. CT and MRI brain obtained on 09/09/18 show left intraparenchymal hemorrhage. Case discussed with Dr. Myers. Follow up CT brain will be obtained on 09/11/18. No neurosurgical intervention at this time.
[2018-09-10] MEDS: Dexamethasone IV* 4 MG/ML 1 ML (4 MG) IV SLOW PU SCH ×3 (10:56→20:49)
[2018-09-10 13:42] LABS: Herpes Simplex Virus I IgG AB Positive (Negative); Herpes Simplex Virus II IgG AB Negative (Negative)
[2018-09-10 13:49] LABS: Haptoglobin 129 mg/dL (30 - 200)
[2018-09-10 14:35] LABS: CA 19-9 7513 U/mL (<35)
--- NOTE | 2018-09-10 15:50 | PN ---
Subjective Date of Service: 09/10/18 Interval History: Not awake and lethargic this am.Improved towards the afternoon Family History: Unchanged from Admission Social History: Unchanged from Admission Past Medical History: Unchanged from Admission Objective Active Medications: Acetaminophen (Tylenol Tab*) 650 mg PO Q6H PRN PRN Reason: Pain or fever Dexamethasone Sodium Phosphate (Decadron Iv*) 4 mg IV SLOW PU Q6H [facility] Last Admin: 09/10/18 15:40 Dose: 4 mg Folic Acid (Folvite Tab*) 1 mg NG TUBE DAILY [facility] Last Admin: 09/10/18 08:59 Dose: 1 mg Hydralazine HCl (Apresoline Iv*) 5 mg IV SLOW PU Q6H PRN PRN Reason: HTN Last Admin: 09/09/18 21:27 Dose: 5 mg Cefepime HCl (Maxipime 1 Gm In Dextrose Duplex (*)) 1 gm in 50 mls @ 100 mls/ hr IV Q12H [facility] Last Admin: 09/10/18 13:05 Dose: 100 mls/hr Metronidazole/Sodium Chloride (Flagyl 500 Mg Ivpb*) 500 mg in 100 mls @ 100 mls /hr IVPB Q8H [facility] Last Admin: 09/10/18 13:09 Dose: 100 mls/hr Lactated Ringer's (Lactated Ringers 1000 Ml Bag*) 1,000 mls @ 150 mls/hr IV PER RATE [facility] Last Admin: 09/10/18 08:27 Dose: 150 mls/hr Thiamine HCl 250 mg/ Sodium (Chloride) 102.5 mls @ 205 mls/hr IV Q24H [facility] Stop: 09/14/18 16:59 Last Admin: 09/09/18 19:29 Dose: 205 mls/hr Lactulose (Lactulose*) 30 ml NG TUBE QID [facility] Last Admin: 09/10/18 13:10 Dose: 30 ml Lactulose (Lactulose 300 Ml For Pr*) 200 gm MT QID [facility] Last Admin: 09/10/18 15:42 Dose: Not Given Lorazepam (Ativan Inj*) 0 - 6 mg IV PUSH .PER [facility] PROTOCOL [facility]; Protocol Last Admin: 09/09/18 11:29 Dose: 1 mg Multivitamins/Minerals (Theragran/Minerals Tab*) 1 tab .SEE ORDER DAILY [facility] Last Admin: 09/10/18 09:00 Dose: 1 tab Primidone (Mysoline Tab(*)) 50 mg .SEE ORDER DAILY [facility] Last Admin: 09/10/18 09:02 Dose: 50 mg Rifaximin (Xifaxan*) 550 mg G TUBE BID [facility] Last Admin: 09/10/18 09:00 Dose: 550 mg Vital Signs - 8 hr 09/10/18 09/10/18 09/10/18 08:00 08:01 08:30 Temperature 98.6 F 98.6 F 98.4 F Pulse Rate 63 66 65 Respiratory 16 15 16 Rate Blood Pressure 150/81 155/91 (mmHg) O2 Sat by Pulse 98 99 99 Oximetry 09/10/18 09/10/18 09/10/18 09:00 09:01 09:30 Temperature 98.6 F 98.6 F 98.6 F Pulse Rate 64 64 69 Respiratory 17 18 19 Rate Blood Pressure 139/87 135/75 (mmHg) O2 Sat by Pulse 99 99 98 Oximetry 09/10/18 09/10/18 09/10/18 10:00 10:30 11:00 Temperature 98.2 F 98.6 F Pulse Rate 76 83 Respiratory 22 21 17 Rate Blood Pressure 162/93 146/90 (mmHg) O2 Sat by Pulse 99 98 Oximetry 09/10/18 09/10/18 09/10/18 11:01 11:30 12:00 Temperature 98.6 F 98.6 F 98.8 F Pulse Rate 81 74 69 Respiratory 16 19 17 Rate Blood Pressure 146/93 139/80 (mmHg) O2 Sat by Pulse 98 99 98 Oximetry 09/10/18 09/10/18 09/10/18 12:01 12:30 13:00 Temperature 98.8 F 98.8 F 98.6 F Pulse Rate 67 69 64 Respiratory 22 13 18 Rate Blood Pressure 145/88 160/89 (mmHg) O2 Sat by Pulse 99 99 99 Oximetry 09/10/18 09/10/18 09/10/18 13:01 13:30 13:57 Temperature 98.6 F 98.6 F Pulse Rate 63 67 Respiratory 16 18 17 Rate Blood Pressure 149/81 (mmHg) O2 Sat by Pulse 99 98 Oximetry 09/10/18 09/10/18 09/10/18 14:00 14:01 14:30 Temperature 98.6 F 98.6 F 98.6 F Pulse Rate 65 65 65 Respiratory 22 17 18 Rate Blood Pressure 143/84 145/85 (mmHg) O2 Sat by Pulse 98 98 98 Oximetry 09/10/18 15:00 Temperature 98.6 F Pulse Rate 71 Respiratory 26 Rate Blood Pressure 155/90 (mmHg) O2 Sat by Pulse 98 Oximetry Oxygen Devices in Use Now: Nasal Cannula Eyes: - - scleral icterus present Ears/Nose/Mouth/Throat: NL Teeth, Lips, Gums Neck: NL Appearance and Movements; NL JVP Respiratory: Clear to Auscultation Cardiovascular: NL Sounds; No Murmurs; No JVD, RRR, - - tachycardic Abdominal: - - no rebound no guarding no pain on palpation Extremities: No Edema Neurological: - - lethargic - Nutrition: Malnutrition Diagnosis/Plan Malnutrition Assessment by Registered Dietitian: Malnutrition Assessment Clinical Characteristics Chronic,Moderate Malnutrition Assessment: - 20% wt loss x past year Criteria - Mild temporal muscle wasting - < 75% estimated energy expenditure > 1 month Malnutrition Assessment: - As able, advance diet Interventions - Will offer an oral nutritional supplement, following advancement, if PO is not consistently > 50% of meals Malnutrition Assessment: Goals 1. Ultimately, adequate PO intake to promote wt repletion and hydration w/o additional undesired wt loss Result Diagrams: 09/10/18 05:30 09/10/18 05:30 Additional Lab and Data: Lab Results 09/05/18 09/05/18 09/05/18 Range/Units 13:25 13:25 13:25 WBC 6.4 (3.5-10.8) 10^3/ul RBC 3.74 L (4.00-5.40) 10^6/ul Hgb 12.5 L (14.0-18.0) g/dl Hct 37 L (42-52) % MCV 99 H (80-94) fL MCH 34 H (27-31) pg MCHC 34 (31-36) g/dl RDW 15 (10.5-15) % Plt Count 150 (150-450) 10^3/ul MPV 9.1 (7.4-10.4) fL Neut % (Auto) Not Reportable Lymph % (Auto) Not Reportable Gosper % (Auto) Not Reportable Eos % (Auto) Not Reportable Baso % (Auto) Not Reportable Absolute Neuts (auto) Not Reportable Absolute Lymphs (auto) Not Reportable Absolute Monos (auto) Not Reportable Absolute Eos (auto) Not Reportable Absolute Basos (auto) Not Reportable Absolute Nucleated RBC Not Reportable Neutrophils % 78 % Lymphocytes % 8 % Monocytes % 12 % Eosinophils % 0 % Basophils % 2 % Nucleated RBC % Not Reportable Abs Neuts (Manual) 5.0 (1.5-7.7) 10^3/ul Abs Lymphs (Manual) 0.5 L (1.0-4.8) 10^3/ul Abs Monocytes (Manual) 0.8 (0-0.8) 10^3/ul Absolute Eos (Manual) 0 (0-0.6) 10^3/ul Abs Basophils (Manual) 0.1 (0-0.2) 10^3/ul Normal RBC Morphology Not Reportable Target Cells 1+ APTT (26.0-36.3) seconds Sodium 132 L (135-145) mmol/L Potassium 3.6 (3.5-5.0) mmol/L Chloride 94 L (101-111) mmol/L Carbon Dioxide 29 (22-32) mmol/L Anion Gap 9 (2-11) mmol/L BUN 10 (6-24) mg/dL Creatinine 0.78 (0.67-1.17) mg/dL Est GFR ( Amer) 123.7 (>60) Est GFR (Non-Af Amer) 102.2 (>60) BUN/Creatinine Ratio 12.8 (8-20) Glucose 110 H (70-100) mg/dL Lactic Acid 2.2 H* (0.5-2.0) mmol/L Calcium 7.9 L (8.6-10.3) mg/dL Magnesium 2.0 (1.9-2.7) mg/dL Total Bilirubin 15.80 H* D (0.2-1.0) mg/dL Direct Bilirubin 9.20 H (0.03-0.18) mg/dL Indirect Bilirubin 6.6 H (0.3-1.0) mg/dL AST 292 H (13-39) U/L ALT 136 H (7-52) U/L Alkaline Phosphatase 739 H (34-104) U/L Ammonia (16-53) mcmol/L Total Creatine Kinase 78 (10-223) U/L C-Reactive Protein 13.51 H (<8.01) mg/L B-Natriuretic Peptide (<=100) pg/mL Total Protein 5.1 L (6.4-8.9) g/dL Albumin 2.8 L (3.2-5.2) g/dL Globulin 2.3 (2-4) g/dL Albumin/Globulin Ratio 1.2 (1-3) Amylase 60 (29-103) U/L Lipase 233 H (11.0-82.0) U/L Serum Alcohol (<10) mg/dL 09/05/18 09/05/18 09/05/18 Range/Units 13:25 13:25 14:10 WBC (3.5-10.8) 10^3/ul RBC (4.00-5.40) 10^6/ul Hgb (14.0-18.0) g/dl Hct (42-52) % MCV (80-94) fL MCH (27-31) pg MCHC (31-36) g/dl RDW (10.5-15) % Plt Count (150-450) 10^3/ul MPV (7.4-10.4) fL Neut % (Auto) Lymph % (Auto) Gosper % (Auto) Eos % (Auto) Baso % (Auto) Absolute Neuts (auto) Absolute Lymphs (auto) Absolute Monos (auto) Absolute Eos (auto) Absolute Basos (auto) Absolute Nucleated RBC Neutrophils % % Lymphocytes % % Monocytes % % Eosinophils % % Basophils % % Nucleated RBC % Abs Neuts (Manual) (1.5-7.7) 10^3/ul Abs Lymphs (Manual) (1.0-4.8) 10^3/ul Abs Monocytes (Manual) (0-0.8) 10^3/ul Absolute Eos (Manual) (0-0.6) 10^3/ul Abs Basophils (Manual) (0-0.2) 10^3/ul Normal RBC Morphology Target Cells APTT 33.9 (26.0-36.3) seconds Sodium (135-145) mmol/L Potassium (3.5-5.0) mmol/L Chloride (101-111) mmol/L Carbon Dioxide (22-32) mmol/L Anion Gap (2-11) mmol/L BUN (6-24) mg/dL Creatinine (0.67-1.17) mg/dL Est GFR ( Amer) (>60) Est GFR (Non-Af Amer) (>60) BUN/Creatinine Ratio (8-20) Glucose (70-100) mg/dL Lactic Acid (0.5-2.0) mmol/L Calcium (8.6-10.3) mg/dL Magnesium (1.9-2.7) mg/dL Total Bilirubin (0.2-1.0) mg/dL Direct Bilirubin (0.03-0.18) mg/dL Indirect Bilirubin (0.3-1.0) mg/dL AST (13-39) U/L ALT (7-52) U/L Alkaline Phosphatase (34-104) U/L Ammonia 72 H (16-53) mcmol/L Total Creatine Kinase (10-223) U/L C-Reactive Protein (<8.01) mg/L B-Natriuretic Peptide 130 H (<=100) pg/mL Total Protein (6.4-8.9) g/dL Albumin (3.2-5.2) g/dL Globulin (2-4) g/dL Albumin/Globulin Ratio (1-3) Amylase (29-103) U/L Lipase (11.0-82.0) U/L Serum Alcohol 194 H (<10) mg/dL Microbiology and Other Data: Microbiology 09/09/18 12:00 Aerobic Blood Culture - Preliminary Blood Venous No Growth Day 1 Anaerobic Blood Culture - Preliminary No Growth Day 1 Assess/Plan/Problems-Billing Assessment: Mr Winchester is a 58yo M with PMH of essential tremor, hypogonadism, HTN, TB exposure, who is being followed as outpatient for progressive jaundice, sent to the hospital due to worsening LFTs. - Patient Problems (1) Intraparenchymal hemorrhage of brain Current Visit: Yes Status: Acute Code(s): I61.9 - NONTRAUMATIC INTRACEREBRAL HEMORRHAGE, UNSPECIFIED SNOMED Code(s): 933691364 Comment: intraparencymal bleed basal ganglia seen by neurosurgery,non surgical f/u ct scan to eval stability (2) Vasogenic cerebral edema Current Visit: Yes Status: Acute Code(s): G93.6 - CEREBRAL EDEMA SNOMED Code(s): 493956683 Comment: Started on Dexamethasone with some improvement in mental status (3) Alcoholic hepatitis Current Visit: Yes Status: Acute Code(s): K70.10 - ALCOHOLIC HEPATITIS WITHOUT ASCITES SNOMED Code(s): 848315907 Comment: - GI input appreciated - Dr Forte feels his clinical picture is compatible with alcoholic hepatitis. May be heterozygous for hemochromatosis but did not feel this is pure hemochromatosis. - Dr Foss thinks there is a component of alcoholic hepatitis, but his INR remains normal, despite bilirubin climbing. Recomended HFE testing in the future for hemochromatosis. With his pancreatic lesion, even without ductal dilatation, recommended EUS -when stable - Continue IV steroids.Switched to Dexamethasone in setting of vasogenic edema - His MDF is up to 27, INR remains normal. MELD is 19. - Doug describes EOTH intake much higher than what he described on admission, with hidden bottles and prior episodes of withdrawal. - Will continue WAM protocol and Thiamine supplementation. (4) Hepatic encephalopathy Current Visit: Yes Status: Acute Code(s): K72.90 - HEPATIC FAILURE, UNSPECIFIED WITHOUT COMA SNOMED Code(s): 48276638 Comment: - Ammonia 87 - Continue Lactulose via NGT and enema. (5) Pancreatic mass Current Visit: Yes Status: Acute Comment: - Incidental finding on CT - 0.5cm pancreatic mass with no signs of obstruction. - MRCP reviewed. - Dr Foss recommended EUS when stable - CEA is 7.2. (6) Sepsis Current Visit: Yes Status: Acute Comment: - Source is still unclear, suspect GI colitis - continue Cefepime and Metronidazole. - Lactic acid was 0.3, no need to repeat at this point. - Continue IVF. (7) Vasogenic edema Current Visit: Yes Status: Acute Code(s): G93.6 - CEREBRAL EDEMA SNOMED Code(s): 479370801 Status and Disposition: Inpatient. Family (doug, ex-, daughter) updated at bedside. Aware of complicated case and poor prognosis. They remain optimistic he's going to improve. 50 minutes Critical care time.
[2018-09-10] MEDS: Potassium Chloride LIQUID* 20 MEQ PACKET PO SCH ×2 (16:24→20:56)
[2018-09-10] MEDS: Thiamine IV* 250 MG in NS 0.9% 100 ML* 100 ML IV SCH (16:56)
[2018-09-10] MEDS: Heparin VIAL(*) 5000 UNITS/ML VIAL (FIVE THOUSAND) SUBCUT SCH (21:19)
[2018-09-10 21:36] LABS: HSV 1 PCR Negative (Negative); Herpes Source NASAL
[2018-09-11] MEDS: Dexamethasone IV* 4 MG/ML 1 ML (4 MG) IV SLOW PU SCH ×4 (02:46→20:32)
[2018-09-11] MEDS: hydrALAZINE IV* 20 MG/ML VIAL IV SLOW PU PRN (02:56)
[2018-09-11] MEDS: metroNIDAZOLE IV 500 MG/100ML* 500 MG/100 ML BAG IVPB SCH ×3 (04:50→20:55)
[2018-09-11 05:49] LABS: BUN/Creatinine Ratio 27.1 (8-20); EGFR African American 140.2 (>60); EGFR Non-African American 115.8 (>60); Potassium 3.4 mmol/L (3.5-5.0)
[2018-09-11 06:00] LABS: Immature Granulocytes 4 % (0-9); Lymphocytes % 12 %; Metamyelocytes % 4 % (0-2); Monocytes % 9 %; Neutrophil % 75 %
[2018-09-11 06:02] LABS: Microcytosis 1+
[2018-09-11 06:04] LABS: ABS Nucleated RBC 0 10^3/ul; Hematocrit 35 % (42-52); Hemoglobin 12.2 g/dl (14.0-18.0); Mean Corpuscular HGB Conc 35 g/dl (31-36); Mean Corpuscular Hemoglobin 34 pg (27-31); Mean Corpuscular Volume 97 fL (80-94); Mean Platelet Volume 7.9 fL (7.4-10.4); Nucleated Red Blood Cells % 0; Platelet Count 228 10^3/ul (150-450); Red Blood Count 3.59 10^6/ul (4.00-5.40); Red Cell Distribution Width 17 % (10.5-15); White Blood Count 10.6 10^3/ul (3.5-10.8)
[2018-09-11] MEDS: Lactated Ringers 1000 ML Bag* 1,000 ML IV SCH (07:08)
[2018-09-11 07:37] LABS: Varicella-Zoster IgM Antibody Negative (Negative)
--- NOTE | 2018-09-11 09:10 | PN ---
Progress Note - Progress Note Date of Service: 09/11/18 SOAP: Subjective: [Pt denies headache, nausea this morning. Ex- states that yesterday afternoon he was speaking more fluently. ] Objective: [ Vital Signs: Temp Pulse Resp BP Pulse Ox 97.5 F 69 18 138/84 94 09/11/18 07:00 09/11/18 07:00 09/11/18 07:29 09/11/18 05:30 09/11/18 07:00 General: Resting in bed. NAD. NG tube in place. Jaundice Neuro: Oriented to person, hospital and September. RUE weakness, able to move all extremities. Sensation intact throughout. PERRL. DTR 2+ throughout. CT brain obtained today is stable. ] Assessment: [Left intraparenchymal hemorrhage, unchanged on updated CT today.] Plan: [1. No neurosurgical intervention indicated.]
[2018-09-11] MEDS: Potassium Chloride LIQUID* 20 MEQ PACKET PO SCH ×2 (09:48→20:32)
[2018-09-11] MEDS: Multivitamins/Minerals TAB SCH (09:48)
[2018-09-11] MEDS: Folic Acid TAB* 1 MG NG TUBE SCH (09:49)
[2018-09-11] MEDS: RiFAXimin* 550 MG TAB G TUBE SCH ×2 (09:58→20:32)
[2018-09-11] MEDS: Primidone TAB(*) 50 MG SCH (09:58)
[2018-09-11 10:05] LABS: Albumin 2.3 g/dL (3.2-5.2); Albumin/Globulin Ratio 1.1 (1-3); BUN/Creatinine Ratio 25.3 (8-20); Calcium 8.2 mg/dL (8.6-10.3); EGFR African American 129.4 (>60); Globulin 2.1 g/dL (2-4); Potassium 3.3 mmol/L (3.5-5.0); Total Protein 4.4 g/dL (6.4-8.9)
[2018-09-11 10:15] LABS: Total Bilirubin 26.1 mg/dL (0.2-1.0)
[2018-09-11] MEDS ORDERED: Potassium Chloride LIQUID* 20 MEQ PACKET PO ONE (11:07)
--- NOTE | 2018-09-11 11:17 | PN ---
Subjective Date of Service: 09/11/18 Interval History: More awake today.Denies any abd pain or discomfort Family History: Unchanged from Admission Social History: Unchanged from Admission Past Medical History: Unchanged from Admission Objective Active Medications: Acetaminophen (Tylenol Tab*) 650 mg PO Q6H PRN PRN Reason: Pain or fever Dexamethasone Sodium Phosphate (Decadron Iv*) 4 mg IV SLOW PU Q6H [facility] Last Admin: 09/11/18 09:48 Dose: 4 mg Folic Acid (Folvite Tab*) 1 mg NG TUBE DAILY [facility] Last Admin: 09/11/18 09:49 Dose: 1 mg Hydralazine HCl (Apresoline Iv*) 5 mg IV SLOW PU Q6H PRN PRN Reason: HTN Last Admin: 09/11/18 02:56 Dose: 5 mg Cefepime HCl (Maxipime 1 Gm In Dextrose Duplex (*)) 1 gm in 50 mls @ 100 mls/ hr IV Q12H [facility] Last Admin: 09/10/18 23:58 Dose: 100 mls/hr Metronidazole/Sodium Chloride (Flagyl 500 Mg Ivpb*) 500 mg in 100 mls @ 100 mls /hr IVPB Q8H [facility] Last Admin: 09/11/18 04:50 Dose: 100 mls/hr Lactated Ringer's (Lactated Ringers 1000 Ml Bag*) 1,000 mls @ 150 mls/hr IV PER RATE [facility] Last Admin: 09/11/18 07:08 Dose: 150 mls/hr Thiamine HCl 250 mg/ Sodium (Chloride) 102.5 mls @ 205 mls/hr IV Q24H [facility] Stop: 09/14/18 16:59 Last Admin: 09/10/18 16:56 Dose: 205 mls/hr Lactulose (Lactulose*) 30 ml NG TUBE QID [facility] Last Admin: 09/11/18 09:48 Dose: 30 ml Lactulose (Lactulose 300 Ml For Pr*) 200 gm [place] QID [facility] Last Admin: 09/10/18 20:56 Dose: Not Given Lorazepam (Ativan Inj*) 0 - 6 mg IV PUSH .PER [facility] PROTOCOL [facility]; Protocol Last Admin: 09/09/18 11:29 Dose: 1 mg Multivitamins/Minerals (Theragran/Minerals Tab*) 1 tab .SEE ORDER DAILY [facility] Last Admin: 09/11/18 09:48 Dose: 1 tab Potassium Chloride (Klor-Con Liquid*) 20 meq PO BID [facility] Last Admin: 09/11/18 09:48 Dose: 20 meq Potassium Chloride (Klor-Con Liquid*) 40 meq PO ONCE ONE Stop: 09/11/18 11:08 Primidone (Mysoline Tab(*)) 50 mg .SEE ORDER DAILY [facility] Last Admin: 09/11/18 09:58 Dose: 50 mg Rifaximin (Xifaxan*) 550 mg G TUBE BID [facility] Last Admin: 09/11/18 09:58 Dose: 550 mg Vital Signs - 8 hr 09/11/18 09/11/18 09/11/18 03:30 04:00 04:01 Temperature 97.7 F 97.3 F 97.3 F Pulse Rate 64 84 79 Respiratory 14 20 16 Rate Blood Pressure 130/76 140/76 (mmHg) O2 Sat by Pulse 97 99 99 Oximetry 09/11/18 09/11/18 09/11/18 04:30 05:00 05:01 Temperature 97.3 F 97.3 F 97.3 F Pulse Rate 70 74 71 Respiratory 17 14 17 Rate Blood Pressure 130/83 147/73 (mmHg) O2 Sat by Pulse 99 99 99 Oximetry 09/11/18 09/11/18 09/11/18 05:30 06:00 07:00 Temperature 96.8 F 97.2 F 97.5 F Pulse Rate 72 76 69 Respiratory 22 12 16 Rate Blood Pressure 138/84 (mmHg) O2 Sat by Pulse 98 96 94 Oximetry 09/11/18 07:29 Temperature Pulse Rate Respiratory 18 Rate Blood Pressure (mmHg) O2 Sat by Pulse Oximetry Oxygen Devices in Use Now: None Eyes: - - scleral icterus Neck: NL Appearance and Movements; NL JVP Respiratory: Symmetrical Chest Expansion and Respiratory Effort, Clear to Auscultation Cardiovascular: NL Sounds; No Murmurs; No JVD, RRR Abdominal: - - no pain on palpation no rebound no guarding Neurological: Alert and Oriented x 3, - - a - Nutrition: Malnutrition Diagnosis/Plan Malnutrition Assessment by Registered Dietitian: Malnutrition Assessment Clinical Characteristics Chronic,Moderate Malnutrition Assessment: - 20% wt loss x past year Criteria - Mild temporal muscle wasting - < 75% estimated energy expenditure > 1 month Malnutrition Assessment: - As able, advance diet Interventions - Will offer an oral nutritional supplement, following advancement, if PO is not consistently > 50% of meals Malnutrition Assessment: Goals 1. Ultimately, adequate PO intake to promote wt repletion and hydration w/o additional undesired wt loss Result Diagrams: 09/11/18 05:10 09/11/18 09:35 Additional Lab and Data: Lab Results 09/05/18 09/05/18 09/05/18 Range/Units 13:25 13:25 13:25 WBC 6.4 (3.5-10.8) 10^3/ul RBC 3.74 L (4.00-5.40) 10^6/ul Hgb 12.5 L (14.0-18.0) g/dl Hct 37 L (42-52) % MCV 99 H (80-94) fL MCH 34 H (27-31) pg MCHC 34 (31-36) g/dl RDW 15 (10.5-15) % Plt Count 150 (150-450) 10^3/ul MPV 9.1 (7.4-10.4) fL Neut % (Auto) Not Reportable Lymph % (Auto) Not Reportable [place] % (Auto) Not Reportable Eos % (Auto) Not Reportable Baso % (Auto) Not Reportable Absolute Neuts (auto) Not Reportable Absolute Lymphs (auto) Not Reportable Absolute Monos (auto) Not Reportable Absolute Eos (auto) Not Reportable Absolute Basos (auto) Not Reportable Absolute Nucleated RBC Not Reportable Neutrophils % 78 % Lymphocytes % 8 % Monocytes % 12 % Eosinophils % 0 % Basophils % 2 % Nucleated RBC % Not Reportable Abs Neuts (Manual) 5.0 (1.5-7.7) 10^3/ul Abs Lymphs (Manual) 0.5 L (1.0-4.8) 10^3/ul Abs Monocytes (Manual) 0.8 (0-0.8) 10^3/ul Absolute Eos (Manual) 0 (0-0.6) 10^3/ul Abs Basophils (Manual) 0.1 (0-0.2) 10^3/ul Normal RBC Morphology Not Reportable Target Cells 1+ APTT (26.0-36.3) seconds Sodium 132 L (135-145) mmol/L Potassium 3.6 (3.5-5.0) mmol/L Chloride 94 L (101-111) mmol/L Carbon Dioxide 29 (22-32) mmol/L Anion Gap 9 (2-11) mmol/L BUN 10 (6-24) mg/dL Creatinine 0.78 (0.67-1.17) mg/dL Est GFR ( Amer) 123.7 (>60) Est GFR (Non-Af Amer) 102.2 (>60) BUN/Creatinine Ratio 12.8 (8-20) Glucose 110 H (70-100) mg/dL Lactic Acid 2.2 H* (0.5-2.0) mmol/L Calcium 7.9 L (8.6-10.3) mg/dL Magnesium 2.0 (1.9-2.7) mg/dL Total Bilirubin 15.80 H* D (0.2-1.0) mg/dL Direct Bilirubin 9.20 H (0.03-0.18) mg/dL Indirect Bilirubin 6.6 H (0.3-1.0) mg/dL AST 292 H (13-39) U/L ALT 136 H (7-52) U/L Alkaline Phosphatase 739 H (34-104) U/L Ammonia (16-53) mcmol/L Total Creatine Kinase 78 (10-223) U/L C-Reactive Protein 13.51 H (<8.01) mg/L B-Natriuretic Peptide (<=100) pg/mL Total Protein 5.1 L (6.4-8.9) g/dL Albumin 2.8 L (3.2-5.2) g/dL Globulin 2.3 (2-4) g/dL Albumin/Globulin Ratio 1.2 (1-3) Amylase 60 (29-103) U/L Lipase 233 H (11.0-82.0) U/L Serum Alcohol (<10) mg/dL 09/05/18 09/05/18 09/05/18 Range/Units 13:25 13:25 14:10 WBC (3.5-10.8) 10^3/ul RBC (4.00-5.40) 10^6/ul Hgb (14.0-18.0) g/dl Hct (42-52) % MCV (80-94) fL MCH (27-31) pg MCHC (31-36) g/dl RDW (10.5-15) % Plt Count (150-450) 10^3/ul MPV (7.4-10.4) fL Neut % (Auto) Lymph % (Auto) [place] % (Auto) Eos % (Auto) Baso % (Auto) Absolute Neuts (auto) Absolute Lymphs (auto) Absolute Monos (auto) Absolute Eos (auto) Absolute Basos (auto) Absolute Nucleated RBC Neutrophils % % Lymphocytes % % Monocytes % % Eosinophils % % Basophils % % Nucleated RBC % Abs Neuts (Manual) (1.5-7.7) 10^3/ul Abs Lymphs (Manual) (1.0-4.8) 10^3/ul Abs Monocytes (Manual) (0-0.8) 10^3/ul Absolute Eos (Manual) (0-0.6) 10^3/ul Abs Basophils (Manual) (0-0.2) 10^3/ul Normal RBC Morphology Target Cells APTT 33.9 (26.0-36.3) seconds Sodium (135-145) mmol/L Potassium (3.5-5.0) mmol/L Chloride (101-111) mmol/L Carbon Dioxide (22-32) mmol/L Anion Gap (2-11) mmol/L BUN (6-24) mg/dL Creatinine (0.67-1.17) mg/dL Est GFR ( Amer) (>60) Est GFR (Non-Af Amer) (>60) BUN/Creatinine Ratio (8-20) Glucose (70-100) mg/dL Lactic Acid (0.5-2.0) mmol/L Calcium (8.6-10.3) mg/dL Magnesium (1.9-2.7) mg/dL Total Bilirubin (0.2-1.0) mg/dL Direct Bilirubin (0.03-0.18) mg/dL Indirect Bilirubin (0.3-1.0) mg/dL AST (13-39) U/L ALT (7-52) U/L Alkaline Phosphatase (34-104) U/L Ammonia 72 H (16-53) mcmol/L Total Creatine Kinase (10-223) U/L C-Reactive Protein (<8.01) mg/L B-Natriuretic Peptide 130 H (<=100) pg/mL Total Protein (6.4-8.9) g/dL Albumin (3.2-5.2) g/dL Globulin (2-4) g/dL Albumin/Globulin Ratio (1-3) Amylase (29-103) U/L Lipase (11.0-82.0) U/L Serum Alcohol 194 H (<10) mg/dL Microbiology and Other Data: Microbiology 09/09/18 12:00 Aerobic Blood Culture - Preliminary Blood Venous No Growth Day 1 Anaerobic Blood Culture - Preliminary No Growth Day 1 Assess/Plan/Problems-Billing Assessment: Mr Winchester is a 58yo M with PMH of essential tremor, hypogonadism, HTN, TB exposure, who is being followed as outpatient for progressive jaundice, sent to the hospital due to worsening LFTs. - Patient Problems (1) Intraparenchymal hemorrhage of brain Current Visit: Yes Status: Acute Code(s): I61.9 - NONTRAUMATIC INTRACEREBRAL HEMORRHAGE, UNSPECIFIED SNOMED Code(s): 269922698 Comment: intraparencymal bleed basal ganglia seen by neurosurgery,non surgical f/u ct scan to eval stability stable (2) Vasogenic cerebral edema Current Visit: Yes Status: Acute Code(s): G93.6 - CEREBRAL EDEMA SNOMED Code(s): 248598248 Comment: Started on Dexamethasone with improvement in mental status Can slowly wean (3) Alcoholic hepatitis Current Visit: Yes Status: Acute Code(s): K70.10 - ALCOHOLIC HEPATITIS WITHOUT ASCITES SNOMED Code(s): 192539991 Comment: - GI input appreciated - Dr Forte feels his clinical picture is compatible with alcoholic hepatitis. May be heterozygous for hemochromatosis but did not feel this is pure hemochromatosis. - Dr Foss thinks there is a component of alcoholic hepatitis, but his INR remains normal, despite bilirubin climbing. Recomended HFE testing in the future for hemochromatosis. With his pancreatic lesion, even without ductal dilatation, recommended EUS -when stable - Continue IV steroids.Switched to Dexamethasone in setting of vasogenic edema - His MDF is up to 27, INR remains normal. MELD was 19. - Jenn describes EOTH intake much higher than what he described on admission, with hidden bottles and prior episodes of withdrawal. - Will continue WAM protocol and Thiamine supplementation. (4) Hepatic encephalopathy Current Visit: Yes Status: Acute Code(s): K72.90 - HEPATIC FAILURE, UNSPECIFIED WITHOUT COMA SNOMED Code(s): 87928632 Comment: - Ammonia trending - Continue Lactulose via NGT and enema. -Continue rifaximin (5) Pancreatic mass Current Visit: Yes Status: Acute Comment: - Incidental finding on CT - 0.5cm pancreatic mass - MRCP reviewed. - Dr Foss recommended EUS when stable - CEA is 7.2 -Ca 19-9 pending (6) Sepsis Current Visit: Yes Status: Acute Comment: - Source is still unclear, suspect GI colitis - continue Cefepime and Metronidazole. - Lactic acid was 0.3, no need to repeat at this point. -Will hold IVF Status and Disposition: Inpatient.
[2018-09-11] MEDS: Lactulose 300 ML for PR* 10 GM/15 ML BTL PR SCH ×5 (12:11→20:32)
[2018-09-11] MEDS: Cefepime 1 GM in Dextrose(*) 1 GM/50 ML BAG IV SCH (12:14)
[2018-09-11] MEDS: Thiamine IV* 250 MG in NS 0.9% 100 ML* 100 ML IV SCH (17:20)
[2018-09-12] MEDS: Cefepime 1 GM in Dextrose(*) 1 GM/50 ML BAG IV SCH ×2 (00:26→12:29)
[2018-09-12] MEDS: hydrALAZINE IV* 20 MG/ML VIAL IV SLOW PU PRN ×2 (00:36→21:36)
--- NOTE | 2018-09-12 00:42 | PN ---
Progress Note - Progress Note Date of Service: 09/12/18 Note: Patient fell out of bed - hit head. No neuro changes. CT head - No change. Continue to monitor. Q2 neuro checks
[2018-09-12] MEDS ORDERED: Melatonin 3 MG TAB PO PRN ×2 (03:01→09:42)
[2018-09-12] MEDS: Dexamethasone IV* 4 MG/ML 1 ML (4 MG) IV SLOW PU SCH ×4 (03:31→21:21)
[2018-09-12] MEDS: metroNIDAZOLE IV 500 MG/100ML* 500 MG/100 ML BAG IVPB SCH ×3 (05:46→21:19)
[2018-09-12 05:54] LABS: Hematocrit 34 % (42-52); Hemoglobin 11.6 g/dl (14.0-18.0); Mean Corpuscular HGB Conc 34 g/dl (31-36); Mean Corpuscular Hemoglobin 34 pg (27-31); Mean Corpuscular Volume 98 fL (80-94); Mean Platelet Volume 8.6 fL (7.4-10.4); Platelet Count 256 10^3/ul (150-450); Red Blood Count 3.46 10^6/ul (4.00-5.40); Red Cell Distribution Width 17 % (10.5-15); White Blood Count 13.8 10^3/ul (3.5-10.8)
[2018-09-12 06:10] LABS: Albumin 2.4 g/dL (3.2-5.2); Albumin/Globulin Ratio 1.1 (1-3); BUN/Creatinine Ratio 27.6 (8-20); Calcium 8.3 mg/dL (8.6-10.3); EGFR African American 109.1 (>60); EGFR Non-African American 90.1 (>60); Globulin 2.1 g/dL (2-4); Potassium 3.5 mmol/L (3.5-5.0); Total Protein 4.5 g/dL (6.4-8.9)
[2018-09-12 06:16] LABS: Total Bilirubin 22.1 mg/dL (0.2-1.0)
[2018-09-12 06:19] LABS: INR 0.9 (0.77-1.02)
[2018-09-12 06:53] LABS: ABS Basophils 0 10^3/ul (0-0.2); ABS Eosinophils 0 10^3/ul (0-0.6); ABS Neutrophils 11.1 10^3/ul (1.5-7.7); ABS Neutrophils 11.3 10^3/ul (1.5-7.7); Lymphocytes % 6 %; Monocytes % 12 %; Neutrophil % 82 %
[2018-09-12] MEDS: Lactulose 300 ML for PR* 10 GM/15 ML BTL PR SCH (07:52)
--- NOTE | 2018-09-12 07:54 | PN ---
Subjective Date of Service: 09/12/18 Interval History: Patient seen and examined at bedside. Denies fever, chills, shortness of breath , chest discomfort, N/V/D. He reports moving his bowels 2-3 times daily. He is wondering when he can be discharged and would like to eat. Per [facility] staff Brayan reported a fall last night, this was unwitnessed. Tele: SR, rate 70-80's Family History: Unchanged from Admission Social History: Unchanged from Admission Past Medical History: Unchanged from Admission Objective Active Medications: Acetaminophen (Tylenol Tab*) 650 mg PO Q6H PRN Reason: Pain or fever Dexamethasone Sodium Phosphate (Decadron Iv*) 4 mg IV SLOW PU Q6H [facility] Folic Acid (Folvite Tab*) 1 mg NG TUBE DAILY [facility] Hydralazine HCl (Apresoline Iv*) 5 mg IV SLOW PU Q6H PRN Reason: HTN Cefepime HCl (Maxipime 1 Gm In Dextrose Duplex (*)) 1 gm in 50 mls @ 100 mls/ hr IV Q12H [facility] Metronidazole/Sodium Chloride (Flagyl 500 Mg Ivpb*) 500 mg in 100 mls @ 100 mls /hr IVPB Q8H [facility] Thiamine HCl 250 mg/ Sodium (Chloride) 102.5 mls @ 205 mls/hr IV Q24H [facility] Stop: 09/14/18 16:59 Lactulose (Lactulose*) 30 ml NG TUBE QID [facility] Lactulose (Lactulose 300 Ml For Pr*) 200 gm [place] QID [facility] Lorazepam (Ativan Inj*) 0 - 6 mg IV PUSH .PER [facility] PROTOCOL [facility]; Protocol Melatonin (Melatonin) 3 mg PO BEDTIME PRN Reason: SLEEP Multivitamins/Minerals (Theragran/Minerals Tab*) 1 tab .SEE ORDER DAILY [facility] Pneumococcal Polyvalent Vaccine (Pneumococcal Vac 23-Polyvalent*) 0.5 ml IM .ONCE ONE Stop: 09/12/18 09:01 Potassium Chloride (Klor-Con Liquid*) 20 meq PO BID [facility] Primidone (Mysoline Tab(*)) 50 mg .SEE ORDER DAILY [facility] Rifaximin (Xifaxan*) 550 mg G TUBE BID [facility] Vital Signs - 8 hr 09/12/18 09/12/18 09/12/18 00:00 00:01 00:16 Temperature 98.1 F 98.1 F 98.1 F Pulse Rate 66 65 73 Respiratory 13 13 23 Rate Blood Pressure 166/98 171/101 (mmHg) O2 Sat by Pulse 95 96 95 Oximetry 09/12/18 09/12/18 09/12/18 00:30 00:46 01:00 Temperature 98.1 F 98.1 F 97.9 F Pulse Rate 69 71 68 Respiratory 13 17 21 Rate Blood Pressure 172/99 162/90 154/88 (mmHg) O2 Sat by Pulse 93 95 95 Oximetry 09/12/18 09/12/18 09/12/18 01:01 01:15 01:30 Temperature 97.9 F 97.9 F 97.9 F Pulse Rate 67 67 71 Respiratory 16 14 13 Rate Blood Pressure 151/87 178/93 (mmHg) O2 Sat by Pulse 95 95 95 Oximetry 09/12/18 09/12/18 09/12/18 01:45 02:00 02:01 Temperature 98.1 F 98.1 F 98.1 F Pulse Rate 68 67 70 Respiratory 18 13 15 Rate Blood Pressure 150/89 156/86 (mmHg) O2 Sat by Pulse 94 94 95 Oximetry 09/12/18 09/12/18 09/12/18 02:15 02:31 02:45 Temperature 98.1 F 98.1 F 98.1 F Pulse Rate 75 84 69 Respiratory 20 20 16 Rate Blood Pressure 129/91 165/112 160/89 (mmHg) O2 Sat by Pulse 94 96 94 Oximetry 09/12/18 09/12/18 09/12/18 03:00 03:01 03:17 Temperature 98.1 F 98.1 F 98.1 F Pulse Rate 67 68 75 Respiratory 12 15 14 Rate Blood Pressure 145/86 155/75 (mmHg) O2 Sat by Pulse 94 94 95 Oximetry 09/12/18 09/12/18 09/12/18 03:30 03:46 04:00 Temperature 98.1 F 98.1 F 98.1 F Pulse Rate 81 93 73 Respiratory 18 23 14 Rate Blood Pressure 162/93 156/88 146/85 (mmHg) O2 Sat by Pulse 94 93 90 Oximetry 09/12/18 09/12/18 09/12/18 04:01 04:15 04:30 Temperature 98.1 F 97.9 F 98.1 F Pulse Rate 84 71 69 Respiratory 21 9 13 Rate Blood Pressure 133/69 130/67 (mmHg) O2 Sat by Pulse 92 92 94 Oximetry 09/12/18 09/12/18 09/12/18 04:45 05:00 05:01 Temperature 98.2 F 98.2 F 98.2 F Pulse Rate 64 69 67 Respiratory 10 14 14 Rate Blood Pressure 130/66 138/81 (mmHg) O2 Sat by Pulse 95 94 93 Oximetry 09/12/18 09/12/18 09/12/18 05:15 05:31 05:45 Temperature 98.2 F 98.4 F 98.2 F Pulse Rate 68 74 Respiratory 7 23 14 Rate Blood Pressure 148/84 149/96 164/86 (mmHg) O2 Sat by Pulse 94 94 Oximetry 09/12/18 09/12/18 09/12/18 06:00 06:01 06:16 Temperature 98.4 F 98.2 F Pulse Rate 82 95 93 Respiratory 24 18 21 Rate Blood Pressure 178/104 174/86 (mmHg) O2 Sat by Pulse 92 95 95 Oximetry Oxygen Devices in Use Now: None Appearance: NAD, sitting up in bed Eyes: - - Scleral icterus Ears/Nose/Mouth/Throat: Mucous Membranes Moist Respiratory: Symmetrical Chest Expansion and Respiratory Effort, Clear to Auscultation Cardiovascular: NL Sounds; No Murmurs; No JVD, RRR Abdominal: NL Sounds; No Tenderness; No Distention Extremities: No Edema Skin: No Rash or Ulcers, - - Jaundice Neurological: NL Muscle Strength and Tone, - - Alert and Oriented to Person, states that the year is 1997. Smile is symmetric and tongue midline. Hand wine and spirits clerk equal. Mild resting tremor noted. Lines/Tubes/Other Access: Clean, Dry and Intact [place] - Patent, Clean, Dry and Intact Naso-enteral Tube - Patent Nutrition: - - Tube feedings - Nutrition: Malnutrition Diagnosis/Plan Malnutrition Assessment by Registered Dietitian: Malnutrition Assessment Clinical Characteristics Chronic,Moderate Malnutrition Assessment: - 20% wt loss x past year Criteria - Mild temporal muscle wasting - < 75% estimated energy expenditure > 1 month Malnutrition Assessment: - As able, advance diet Interventions - Will offer an oral nutritional supplement, following advancement, if PO is not consistently > 50% of meals Malnutrition Assessment: Goals 1. Ultimately, adequate PO intake to promote wt repletion and hydration w/o additional undesired wt loss Result Diagrams: 09/12/18 05:41 09/12/18 05:41 Microbiology and Other Data: Microbiology 09/09/18 12:00 Aerobic Blood Culture - Preliminary Blood Venous No Growth Day 1 Anaerobic Blood Culture - Preliminary No Growth Day 1 Assess/Plan/Problems-Billing Assessment: Mr Winchester is a 58yo M with PMH of essential tremor, hypogonadism, HTN, TB exposure, who is being followed as outpatient for progressive jaundice, sent to the hospital due to worsening LFTs. - Patient Problems (1) Intraparenchymal hemorrhage of brain Code(s): I61.9 - NONTRAUMATIC INTRACEREBRAL HEMORRHAGE, UNSPECIFIED SNOMED Code(s): 721920984 Comment: - Basal ganglia intraparencymal bleed - Neurosurgery consult, input appreciated. Non surgical - 09/11/18 - f/u ct scan stable (2) Vasogenic cerebral edema Code(s): G93.6 - CEREBRAL EDEMA SNOMED Code(s): 581716400 Comment: - Continue Dexamethasone with improvement in mental status - Plan to wean slowly when ok with neurosurgery (3) Alcoholic hepatitis Code(s): K70.10 - ALCOHOLIC HEPATITIS WITHOUT ASCITES SNOMED Code(s): 624793247 Comment: - Jenn describes EOTH intake much higher than what he described on admission, with hidden bottles and prior episodes of withdrawal - Will continue WAM protocol and Thiamine supplementation - His MDF is up to 27, INR remains normal. MELD was 19. - GI input appreciated - Dr Forte feels his clinical picture is compatible with alcoholic hepatitis. May be heterozygous for hemochromatosis but did not feel this is pure hemochromatosis. - Dr Foss thinks there is a component of alcoholic hepatitis, but his INR remains normal, despite bilirubin climbing. Recomended HFE testing in the future for hemochromatosis. With his pancreatic lesion, even without ductal dilatation, recommended EUS -when stable - Continue IV steroids (Switched to Dexamethasone in setting of vasogenic edema) (4) Hepatic encephalopathy Code(s): K72.90 - HEPATIC FAILURE, UNSPECIFIED WITHOUT COMA SNOMED Code(s): 01518882 Comment: - Ammonia remains elevated, but is trending down - Continue Lactulose via NGT/enema and rifaximin (5) Moderate protein-calorie malnutrition Code(s): E44.0 - MODERATE PROTEIN-CALORIE MALNUTRITION SNOMED Code(s): 699130429 Comment: - Dietitian input appreciated - 20% wt loss x past year, with mild temporal muscle wasting, and < 75% estimated energy expenditure > 1 month - Received tube feeds briefly, he is now more alert - Resume low protein diet (6) Pancreatic mass Comment: - Incidental finding on CT of a 0.5cm pancreatic mass - MRCP reviewed, Dr Foss (GI) recommended EUS when stable - CEA is 7.2 and Ca 19-9 is 7513 (7) Sepsis Comment: - Resolving, source is still unclear but suspect GI colitis - Continue Cefepime and Metronidazole (8) Essential tremor Code(s): G25.0 - ESSENTIAL TREMOR SNOMED Code(s): 676875179 Comment: - Continue Ativan and Primidone (9) HTN (hypertension) Code(s): I10 - ESSENTIAL (PRIMARY) HYPERTENSION SNOMED Code(s): 13366394 Comment: - SBP 130-180's - Intermittently hypertensive off meds, continue to monitor and may need to start medication if he continues to be elevated - Continue Hydralazine PRN (10) DVT prophylaxis Code(s): FMD7358 - SNOMED Code(s): 857044950 Comment: - SCDs only - No chemical DVT prophylaxis in the setting of ICH (11) Full code status Code(s): Z78.9 - OTHER SPECIFIED HEALTH STATUS SNOMED Code(s): 289411040 Status and Disposition: Inpatient. Discharge when medically stable. Counseling and/or Coordination of Care Minutes: 35 minutes was spent with the patient discussing diagnosis and plan of care Attending: Woodrow Cheatham
[2018-09-12] MEDS: LORazepam INJ* 2 MG/ML 1 ML VIAL IV PUSH SCH (08:25)
[2018-09-12] MEDS: Folic Acid TAB* 1 MG NG TUBE SCH (08:27)
[2018-09-12] MEDS: Multivitamins/Minerals TAB SCH (08:27)
[2018-09-12] MEDS: RiFAXimin* 550 MG TAB G TUBE SCH (08:28)
[2018-09-12] MEDS: Primidone TAB(*) 50 MG SCH (08:28)
[2018-09-12] MEDS: Potassium Chloride LIQUID* 20 MEQ PACKET PO SCH ×2 (08:28→21:19)
[2018-09-12] MEDS ORDERED: Pneumococcal *Vac Polyvalent 0.5 ML VIAL IM ONE (09:00)
[2018-09-12] MEDS ORDERED: Acetaminophen TAB* 325 MG PO PRN ×2 (09:42→17:05)
[2018-09-12] MEDS: Thiamine IV* 250 MG in NS 0.9% 100 ML* 100 ML IV SCH (16:16)
[2018-09-12] MEDS: RiFAXimin* 550 MG TAB PO SCH (21:20)
[2018-09-12] MEDS: Melatonin 3 MG TAB PO PRN (21:20)
[2018-09-13] MEDS: Cefepime 1 GM in Dextrose(*) 1 GM/50 ML BAG IV SCH ×3 (00:50→23:19)
[2018-09-13] MEDS: Dexamethasone IV* 4 MG/ML 1 ML (4 MG) IV SLOW PU SCH ×4 (02:19→20:49)
[2018-09-13] MEDS: metroNIDAZOLE IV 500 MG/100ML* 500 MG/100 ML BAG IVPB SCH ×3 (05:50→20:49)
[2018-09-13] MEDS: hydrALAZINE IV* 20 MG/ML VIAL IV SLOW PU PRN (08:21)
[2018-09-13] MEDS: Potassium Chloride LIQUID* 20 MEQ PACKET PO SCH ×2 (08:24→20:49)
[2018-09-13] MEDS: RiFAXimin* 550 MG TAB PO SCH ×2 (08:27→20:49)
[2018-09-13] MEDS: Multivitamins/Minerals TAB SCH (08:27)
[2018-09-13] MEDS: Folic Acid TAB* 1 MG PO SCH (08:27)
--- NOTE | 2018-09-13 08:27 | PN ---
Subjective Date of Service: 09/13/18 Interval History: Patient seen and examined at bedside. Denies fever, chills, shortness of breath , chest discomfort, N/V/D. Reports that he was able to eat dinner last night and is ready for breakfast today. He continues to have confusion. No complaints. Family History: Unchanged from Admission Social History: Unchanged from Admission Past Medical History: Unchanged from Admission Objective Active Medications: Acetaminophen (Tylenol Tab*) 650 mg PO Q6H PRN Reason: Pain or fever Dexamethasone Sodium Phosphate (Decadron Iv*) 4 mg IV SLOW PU Q6H [facility] Folic Acid (Folvite Tab*) 1 mg PO DAILY MICHAEL Hydralazine HCl (Apresoline Iv*) 5 mg IV SLOW PU Q6H PRN Reason: HTN Cefepime HCl (Maxipime 1 Gm In Dextrose Duplex (*)) 1 gm in 50 mls @ 100 mls/ hr IV Q12H [facility] Metronidazole/Sodium Chloride (Flagyl 500 Mg Ivpb*) 500 mg in 100 mls @ 100 mls /hr IVPB Q8H [facility] Thiamine HCl 250 mg/ Sodium (Chloride) 102.5 mls @ 205 mls/hr IV Q24H [facility] Stop: 09/14/18 16:59 Lactulose (Lactulose*) 30 ml PO QID MICHAEL Lorazepam (Ativan Inj*) 0 - 6 mg IV PUSH .PER [facility] PROTOCOL MICHAEL; Protocol Melatonin (Melatonin) 3 mg PO BEDTIME PRN Reason: SLEEP Multivitamins/Minerals (Theragran/Minerals Tab*) 1 tab .SEE ORDER DAILY MICHAEL Potassium Chloride (Klor-Con Liquid*) 20 meq PO BID MICHAEL Primidone (Mysoline Tab(*)) 50 mg .SEE ORDER DAILY MICHAEL Rifaximin (Xifaxan*) 550 mg PO BID MICHAEL Vital Signs - 8 hr 09/13/18 09/13/18 03:26 05:02 Temperature 98.2 F 98.2 F Pulse Rate 56 56 Respiratory 20 20 Rate Blood Pressure 156/82 156/82 (mmHg) O2 Sat by Pulse 98 98 Oximetry Oxygen Devices in Use Now: None Appearance: NAD, sitting up in bed Eyes: - - [place] Icterus Ears/Nose/Mouth/Throat: Mucous Membranes Moist Respiratory: Symmetrical Chest Expansion and Respiratory Effort, Clear to Auscultation Cardiovascular: NL Sounds; No Murmurs; No JVD, RRR Abdominal: NL Sounds; No Tenderness; No Distention Extremities: No Edema Skin: - - Jaundice Neurological: NL Muscle Strength and Tone, - - Alert and Oriented to Person, confused Lines/Tubes/Other Access: Clean, Dry and Intact [place] - patent Nutrition: Taking PO's - Nutrition: Malnutrition Diagnosis/Plan Malnutrition Assessment by Registered Dietitian: Malnutrition Assessment Clinical Characteristics Chronic,Moderate Malnutrition Assessment: - 20% wt loss x past year Criteria - Mild temporal muscle wasting - < 75% estimated energy expenditure > 1 month Malnutrition Assessment: - As able, advance diet Interventions - Will offer an oral nutritional supplement, following advancement, if PO is not consistently > 50% of meals Malnutrition Assessment: Goals 1. Ultimately, adequate PO intake to promote wt repletion and hydration w/o additional undesired wt loss Result Diagrams: 09/12/18 05:41 09/12/18 05:41 Microbiology and Other Data: Microbiology 09/09/18 12:00 Aerobic Blood Culture - Preliminary Blood Venous No Growth Day 1 Anaerobic Blood Culture - Preliminary No Growth Day 1 Assess/Plan/Problems-Billing Assessment: Mr Winchester is a 58yo M with PMH of essential tremor, hypogonadism, HTN, TB exposure, who is being followed as outpatient for progressive jaundice, sent to the hospital due to worsening LFTs. - Patient Problems (1) Intraparenchymal hemorrhage of brain Code(s): I61.9 - NONTRAUMATIC INTRACEREBRAL HEMORRHAGE, UNSPECIFIED SNOMED Code(s): 946662293 Comment: - Basal ganglia intraparencymal bleed - Neurosurgery consult, input appreciated. Non surgical - 09/11/18 - f/u ct scan stable (2) Vasogenic cerebral edema Code(s): G93.6 - CEREBRAL EDEMA SNOMED Code(s): 518532136 Comment: - Continue Dexamethasone with improvement in mental status - Plan to wean slowly when ok with neurosurgery (3) Alcoholic hepatitis Code(s): K70.10 - ALCOHOLIC HEPATITIS WITHOUT ASCITES SNOMED Code(s): 457014225 Comment: - Jenn describes EOTH intake much higher than what he described on admission, with hidden bottles and prior episodes of withdrawal - Will continue WAM protocol and Thiamine supplementation - His MDF is up to 27, INR remains normal. MELD was 19. - GI input appreciated - Dr Forte feels his clinical picture is compatible with alcoholic hepatitis. May be heterozygous for hemochromatosis but did not feel this is pure hemochromatosis. - Dr Foss thinks there is a component of alcoholic hepatitis, but his INR remains normal, despite bilirubin climbing. Recomended HFE testing in the future for hemochromatosis. With his pancreatic lesion, even without ductal dilatation, recommended EUS -when stable - Continue IV steroids (Switched to Dexamethasone in setting of vasogenic edema) (4) Hepatic encephalopathy Code(s): K72.90 - HEPATIC FAILURE, UNSPECIFIED WITHOUT COMA SNOMED Code(s): 75427010 Comment: - Ammonia remains elevated, but is trending down - Continue Lactulose and rifaximin (5) Moderate protein-calorie malnutrition Code(s): E44.0 - MODERATE PROTEIN-CALORIE MALNUTRITION SNOMED Code(s): 510527845 Comment: - Dietitian input appreciated - 20% wt loss x past year, with mild temporal muscle wasting, and < 75% estimated energy expenditure > 1 month - Received tube feeds briefly, he is now more alert - Resume low protein diet (6) Pancreatic mass Comment: - Incidental finding on CT of a 0.5cm pancreatic mass - MRCP reviewed, Dr Foss (GI) recommended EUS when stable - CEA is 7.2 and Ca 19-9 is 7513 (will repeat CA 19-9 in a few days) (7) Sepsis Comment: - Resolving, source is still unclear but suspect GI colitis - Continue Cefepime and Metronidazole (8) Essential tremor Code(s): G25.0 - ESSENTIAL TREMOR SNOMED Code(s): 671181201 Comment: - Continue Ativan and Primidone (9) HTN (hypertension) Code(s): I10 - ESSENTIAL (PRIMARY) HYPERTENSION SNOMED Code(s): 83637424 Comment: - SBP 130-170's - Intermittently hypertensive off meds, continue to monitor and may need to start medication if he continues to be elevated - Continue Hydralazine PRN (10) DVT prophylaxis Code(s): TXD5200 - SNOMED Code(s): 618269095 Comment: - SCDs only - No chemical DVT prophylaxis in the setting of ICH (11) Full code status Code(s): Z78.9 - OTHER SPECIFIED HEALTH STATUS SNOMED Code(s): 973381926 Status and Disposition: Inpatient. Discharge when medically stable, suspect he will need rehab at discharge. Attending: Woodrow Cheatham
[2018-09-13] MEDS: Primidone TAB(*) 50 MG SCH (08:28)
[2018-09-13] MEDS ORDERED: Artificial Tears* 15 ML BTL BOTH EYES PRN (14:33)
[2018-09-13] MEDS: Thiamine IV* 250 MG in NS 0.9% 100 ML* 100 ML IV SCH (18:07)
[2018-09-14] MEDS: hydrALAZINE IV* 20 MG/ML VIAL IV SLOW PU PRN (00:08)
[2018-09-14] MEDS: metroNIDAZOLE IV 500 MG/100ML* 500 MG/100 ML BAG IVPB SCH ×3 (04:26→21:03)
[2018-09-14] MEDS: Dexamethasone IV* 4 MG/ML 1 ML (4 MG) IV SLOW PU SCH ×3 (04:27→14:55)
[2018-09-14 06:11] LABS: Albumin 2.3 g/dL (3.2-5.2); Albumin/Globulin Ratio 1.2 (1-3); BUN/Creatinine Ratio 25.4 (8-20); Calcium 7.6 mg/dL (8.6-10.3); EGFR African American 158.3 (>60); EGFR Non-African American 130.8 (>60); Globulin 1.9 g/dL (2-4); Potassium 3.7 mmol/L (3.5-5.0); Total Protein 4.2 g/dL (6.4-8.9)
[2018-09-14 06:14] LABS: Total Bilirubin 12.5 mg/dL (0.2-1.0)
[2018-09-14] MEDS: Folic Acid TAB* 1 MG PO SCH (10:13)
[2018-09-14] MEDS: RiFAXimin* 550 MG TAB PO SCH ×2 (10:13→21:03)
[2018-09-14] MEDS: Multivitamins/Minerals TAB SCH (10:13)
[2018-09-14] MEDS: Primidone TAB(*) 50 MG SCH (10:13)
[2018-09-14] MEDS: Potassium Chloride LIQUID* 20 MEQ PACKET PO SCH ×2 (10:16→21:03)
[2018-09-14] MEDS ORDERED: NS 0.9% 1000 ML** 1,000 ML IV ONE (11:13)
[2018-09-14] MEDS: Cefepime 1 GM in Dextrose(*) 1 GM/50 ML BAG IV SCH ×2 (11:46→23:27)
[2018-09-14 12:18] LABS: Ferritin 1378.5 ng/mL (24-336)
--- NOTE | 2018-09-14 15:32 | ECHO ---
Patient: DIOMEDES NEGRO [facility] Rec#: [id number] : 1960 Date: 09/14/2018 Age: 58y Height: 170 cm / 66.9 in Weight: 68 kg / 149.9 lbs Sex: M BSA: 1.79 Room#: 58 Admit Date#: 09/05/2018 Type: Inpatient Referring: Zac Harrison Reading: Emelyn Mendiola MD Quality Assurance Monitor Final: Shania Santiago,MYESHACS,RDMS CC: Luc Hartley MD Transthoracic Echocardiogram Indication: Hypotension, Syncope BP: 114/67 Rhythm: Bradycardia Findings History: ETOH, hepatic encephalopathy, HTN. Technical Comments: The study quality is fair. Left Ventricle: The left ventricular chamber size is normal. There is a prominent septal knuckle. The estimated ejection fraction is 55-60%. There is no consistent Doppler evidence of clinically significant diastolic dysfunction. Left Atrium: The left atrial chamber size is normal. Right Ventricle: The right ventricular chamber size and systolic function are within normal limits. Right Atrium: The right atrium is mildly dilated. Aortic Valve: There is no evidence of aortic valve thickening. Systolic excursion of the aortic valve is normal. There is no evidence of aortic regurgitation. There is no evidence of aortic stenosis. Mitral Valve: The mitral valve leaflets are mildly thickened. There is a trace of mitral regurgitation. There is no evidence of mitral stenosis. Tricuspid Valve: The tricuspid valve leaflets are normal. There is trace tricuspid regurgitation. Unable to estimate the right ventricular systolic pressure. Pulmonic Valve: There is no evidence of pulmonic valve thickening. There is a trace pulmonic regurgitation. Pericardium: There is no significant pericardial effusion. Aorta: The ascending aorta is not well visualized. There is no dilatation of the aortic arch. The aortic root is normal in size. Pulmonary Artery: The main pulmonary artery is not well visualized. Venous: The inferior vena cava appears normal in size. There is an approximate 50% respiratory change in the inferior vena cava dimension. Summary: There was not any prior study for comparison. Conclusions The left ventricular chamber size is normal. The estimated ejection fraction is 55-60%. There is no consistent Doppler evidence of clinically significant diastolic dysfunction. There is a trace of mitral regurgitation. There is trace tricuspid regurgitation. Unable to estimate the right ventricular systolic pressure. There is a trace pulmonic regurgitation. Measurements Name Value Normal Range RVIDd (AP) 2D 1.7 cm (0.9 - 2.6) RVDdMajor (2D) 3.2 cm (2.2 - 4.4) RAd ISD 4CH 5.7 cm (3.4 - 4.9) RA (A4C)W 3.4 cm (2.9 - 4.6) IVSd (2D) 1.1 cm (0.6 - 1) LVPWd (2D) 1 cm (0.6 - 1) LVIDd (2D) 4.4 cm (3.6 - 5.4) LVIDs (2D) 2.8 cm - LV FS (2D) 38 % (25 - 45) Aortic Annulus 2 cm (1.4 - 2.6) Ao root diameter (2D) 3.2 cm (2.1 - 3.5) Aortic arch 3.3 cm (1.8 - 3.4) LA dimension (AP) 2D 3 cm (2.3 - 3.8) LAd ISD 4CH 4.7 cm (2.9 - 5.3) LA ISD 4CH W 4 cm (2.5 - 4.5) Name Value Normal Range LA ESV BP (A/L) index 26 ml/m2 - Name Value Normal Range MV E-wave Vmax 0.6 m/sec - MV deceleration time 235 msec - MV A-wave Vmax 0.5 m/sec - MV E:A ratio 1.2 ratio - P. vein S-wave Vmax 0.9 m/sec - P. vein D-wave Vmax 0.5 m/sec - P. vein S:D Vmax ratio 1.9 ratio - P. vein A-wave duration 111 msec - LV septal e' Vmax 0.06 m/sec - LV lateral e' Vmax 0.09 m/sec - LV E:e' septal ratio 10 ratio - LV E:e' lateral ratio 7 ratio - Name Value Normal Range AV Vmax 1.4 m/sec - AV VTI 32 cm - AV peak gradient 8 mmHg - AV mean gradient 4 mmHg - LVOT Vmax 1.5 m/sec - LVOT VTI 30 cm - LVOT peak gradient 9 mmHg - LVOT mean gradient 4 mmHg - CLIFFORD Vmax 0.6 m/sec - Name Value Normal Range RAP 8 mmHg - IVC diameter 1.6 cm - Name Value Normal Range PV Vmax 0.8 m/sec - PV peak gradient 2.6 mmHg -
--- NOTE | 2018-09-14 16:01 | PN ---
Subjective Date of Service: 09/14/18 Interval History: Patient feelign better today initially. Very good appetite. Feels like his strength and gait are improving. Patient denies CP, SOB, F/C, N/V, abdominal pain, diarrhea, dysuria, or other pain. Later called back to reevaluate patient because when he started to get up with PT after eating a large meal he felt lightheaded and had blurred vision. Patient's BP at that time was low and it responded to laying down and fluids. Patient was nauseated with this episode. Patient quickly returned to baseline with correction of BP. Family History: Unchanged from Admission Social History: Unchanged from Admission Past Medical History: Unchanged from Admission Objective Active Medications: Acetaminophen (Tylenol Tab*) 650 mg PO Q6H PRN PRN Reason: Pain or fever Dexamethasone Sodium Phosphate (Decadron Iv*) 4 mg IV SLOW PU Q6H [facility] Last Admin: 09/14/18 14:55 Dose: 4 mg Folic Acid (Folvite Tab*) 1 mg PO DAILY [facility] Last Admin: 09/14/18 10:13 Dose: 1 mg Hydralazine HCl (Apresoline Iv*) 5 mg IV SLOW PU Q6H PRN PRN Reason: HTN Last Admin: 09/14/18 00:08 Dose: 5 mg Cefepime HCl (Maxipime 1 Gm In Dextrose Duplex (*)) 1 gm in 50 mls @ 100 mls/ hr IV Q12H [facility] Last Admin: 09/14/18 11:46 Dose: 100 mls/hr Metronidazole/Sodium Chloride (Flagyl 500 Mg Ivpb*) 500 mg in 100 mls @ 100 mls /hr IVPB Q8H [facility] Last Admin: 09/14/18 12:22 Dose: 100 mls/hr Thiamine HCl 250 mg/ Sodium (Chloride) 102.5 mls @ 205 mls/hr IV Q24H [facility] Stop: 09/14/18 16:59 Last Admin: 09/13/18 18:07 Dose: 205 mls/hr Lactulose (Lactulose*) 30 ml PO QID [facility] Last Admin: 09/14/18 12:23 Dose: 30 ml Melatonin (Melatonin) 3 mg PO BEDTIME PRN PRN Reason: SLEEP Last Admin: 09/12/18 21:20 Dose: 3 mg Multivitamins/Minerals (Theragran/Minerals Tab*) 1 tab .SEE ORDER DAILY [facility] Last Admin: 09/14/18 10:13 Dose: 1 tab Polyvinyl Alcohol (Polyvinyl Alcohol 1.4% Opth*) 1 drop BOTH EYES Q2H PRN PRN Reason: DRY EYE Potassium Chloride (Klor-Con Liquid*) 20 meq PO BID [facility] Last Admin: 09/14/18 10:16 Dose: 20 meq Primidone (Mysoline Tab(*)) 50 mg .SEE ORDER DAILY [facility] Last Admin: 09/14/18 10:13 Dose: 50 mg Rifaximin (Xifaxan*) 550 mg PO BID [facility] Last Admin: 09/14/18 10:13 Dose: 550 mg Vital Signs - 8 hr 09/14/18 09/14/18 09/14/18 11:00 11:05 11:30 Temperature 98.1 F Pulse Rate 51 Respiratory 14 Rate Blood Pressure 68/40 115/69 114/67 (mmHg) O2 Sat by Pulse 96 Oximetry 09/14/18 15:18 Temperature 97.4 F Pulse Rate 59 Respiratory 18 Rate Blood Pressure 133/75 (mmHg) O2 Sat by Pulse 97 Oximetry Oxygen Devices in Use Now: None Appearance: Patient is a 58yo male who appears stated age and is sitting in the bed in [facility]. Eyes: PERRLA, - - Prominent Icterus. Ears/Nose/Mouth/Throat: NL Teeth, Lips, Gums, Clear Oropharnyx, Mucous Membranes Moist Neck: NL Appearance and Movements; NL JVP, Trachea Midline Respiratory: Symmetrical Chest Expansion and Respiratory Effort, Clear to Auscultation Cardiovascular: NL Sounds; No Murmurs; No JVD, RRR, - - 1+ B/L LE edema. Abdominal: NL Sounds; No Tenderness; No Distention, No Hepatosplenomegaly Lymphatic: No Cervical Adenopathy Extremities: No Edema, No Clubbing, Cyanosis Skin: No Rash or Ulcers, No Nodules or Sclerosis Neurological: Alert and Oriented x 3, - - 4-/5 strength in RUE. CN II-XII intact. - Nutrition: Malnutrition Diagnosis/Plan Malnutrition Assessment by Registered Dietitian: Malnutrition Assessment Clinical Characteristics Chronic,Moderate Malnutrition Assessment: - 20% wt loss x past year Criteria - Mild temporal muscle wasting - < 75% estimated energy expenditure > 1 month Malnutrition Assessment: - As able, advance diet Interventions - Will offer an oral nutritional supplement, following advancement, if PO is not consistently > 50% of meals Malnutrition Assessment: Goals 1. Ultimately, adequate PO intake to promote wt repletion and hydration w/o additional undesired wt loss Result Diagrams: 09/12/18 05:41 09/14/18 05:16 Additional Lab and Data: Lab Results Microbiology and Other Data: Microbiology 09/09/18 12:00 Aerobic Blood Culture - Preliminary Blood Venous No Growth Day 1 Anaerobic Blood Culture - Preliminary No Growth Day 1 Assess/Plan/Problems-Billing Assessment: Mr Winchester is a 58yo M with PMH of essential tremor, hypogonadism, HTN, TB exposure, who is being followed as outpatient for progressive jaundice, sent to the hospital due to worsening LFTs. Patient has a pancreatic mass. Patient during the course of his hospitalization developed an intraparenchymal brain bleed. - Patient Problems (1) Alcohol abuse Current Visit: Yes Status: Acute Code(s): F10.10 - ALCOHOL ABUSE, UNCOMPLICATED SNOMED Code(s): 44808709 Comment: - Patient stated he drinks to self treat his tremors and didn't think he needed assistance quitting, but his fiance provides collateral information he drinks much more than assumed and has gone through withdrawal before. - No residual signs of withdrawal (2) Alcoholic hepatitis Current Visit: Yes Status: Acute Code(s): K70.10 - ALCOHOLIC HEPATITIS WITHOUT ASCITES SNOMED Code(s): 498603498 Comment: - Fiance describes EOTH intake much higher than what he described on admission, with hidden bottles and prior episodes of withdrawal - Will continue Thiamine supplementation - GI input appreciated - Dr Forte feels his clinical picture is compatible with alcoholic hepatitis. - Component of hemochromatosis, also consistent with hypogonadism. - With his pancreatic lesion, even without ductal dilatation, recommended EUS - when stable - Continue IV steroids and begin taper from dose for vasogenic edema back to dose for alcoholic hepatitis - Bilirubin improving. (3) Colonic thickening Current Visit: Yes Status: Acute Code(s): K63.9 - DISEASE OF INTESTINE, UNSPECIFIED SNOMED Code(s): 709511209 Comment: - Incidental finding of ascending and transverse colon thickening suggestive of colitis, but patient is asymptomatic. - Possibly related to hypoalbuminemia - Given hepatic dysfunction and possibly hemochromatosis, predisposition to bacterial gastroenteritis - Continue Cefepime and Metronidazole. (4) Essential tremor Current Visit: Yes Status: Acute Code(s): G25.0 - ESSENTIAL TREMOR SNOMED Code(s): 109254554 Comment: - Continue Ativan and Primidone (5) HTN (hypertension) Current Visit: Yes Status: Acute Code(s): I10 - ESSENTIAL (PRIMARY) HYPERTENSION SNOMED Code(s): 91176960 Comment: - Generally normotensive, avoid hypertension - Episode of hypotension today likely vagal - Intermittently hypertensive off meds, continue to monitor and may need to start medication if he continues to be elevated - Continue Hydralazine PRN (6) Increased ammonia level Current Visit: Yes Status: Acute Code(s): R79.89 - OTHER SPECIFIED ABNORMAL FINDINGS OF BLOOD CHEMISTRY SNOMED Code(s): 637388622 Comment: - Possible hepatic encephalopathy, continue Lactulose, goal 2-3 BMs daily - Continue Xifaxan (7) Intraparenchymal hemorrhage of brain Current Visit: Yes Status: Acute Code(s): I61.9 - NONTRAUMATIC INTRACEREBRAL HEMORRHAGE, UNSPECIFIED SNOMED Code(s): 555291916 Comment: - Basal ganglia intraparencymal bleed - Neurosurgery consult, input appreciated. Non surgical - 09/11/18 - f/u ct scan stable - Unclear cause, Neurosurgery will reevaluate to assess for the possibility of this being a bleed into a brain metastasis. (8) Moderate protein-calorie malnutrition Current Visit: Yes Status: Acute Code(s): E44.0 - MODERATE PROTEIN-CALORIE MALNUTRITION SNOMED Code(s): 402361079 Comment: - Dietitian input appreciated - 20% wt loss x past year, with mild temporal muscle wasting, and < 75% estimated energy expenditure > 1 month - Received tube feeds briefly, he is now more alert - Continue to monitor I/O (9) Pancreatic mass Current Visit: Yes Status: Acute Comment: - Incidental finding on CT of a 0.5cm pancreatic mass - MRCP reviewed, Dr Foss (GI) recommended EUS when stable - CEA is 7.2 and Ca 19-9 is 7513 will repeat CA 19-9 tomorrow - Lipase slightly elevated at admission (10) Vasogenic cerebral edema Current Visit: Yes Status: Acute Code(s): G93.6 - CEREBRAL EDEMA SNOMED Code(s): 006041766 Comment: - Continue Dexamethasone with improvement in mental status - Discussed with Neurosurgery and will wean. (11) DVT prophylaxis Current Visit: Yes Status: Acute Code(s): OVU1527 - SNOMED Code(s): 473926549 Comment: - SCDs only - No chemical DVT prophylaxis in the setting of ICH (12) Full code status Current Visit: Yes Status: Acute Code(s): Z78.9 - OTHER SPECIFIED HEALTH STATUS SNOMED Code(s): 596511151 Status and Disposition: Inpatient. Discharge when medically stable, suspect he will need rehab at discharge.
[2018-09-14] MEDS: Melatonin 3 MG TAB PO PRN (23:28)
[2018-09-15] MEDS: Dexamethasone IV* 4 MG/ML 1 ML (4 MG) IV SLOW PU SCH ×2 (02:37→14:18)
[2018-09-15] MEDS: metroNIDAZOLE IV 500 MG/100ML* 500 MG/100 ML BAG IVPB SCH ×3 (04:22→21:20)
[2018-09-15 06:34] LABS: INR 0.9 (0.77-1.02)
[2018-09-15 06:35] LABS: Hematocrit 32 % (42-52); Hemoglobin 10.9 g/dl (14.0-18.0); Mean Corpuscular HGB Conc 34 g/dl (31-36); Mean Corpuscular Hemoglobin 34 pg (27-31); Mean Corpuscular Volume 100 fL (80-94); Mean Platelet Volume 9.5 fL (7.4-10.4); Platelet Count 248 10^3/ul (150-450); Red Cell Distribution Width 17 % (10.5-15); White Blood Count 16.1 10^3/ul (3.5-10.8)
[2018-09-15 06:45] LABS: Albumin 2.2 g/dL (3.2-5.2); Albumin/Globulin Ratio 1.1 (1-3); BUN/Creatinine Ratio 24.6 (8-20); Calcium 7.5 mg/dL (8.6-10.3); EGFR African American 177.7 (>60); EGFR Non-African American 146.8 (>60); Potassium 3.8 mmol/L (3.5-5.0); Total Bilirubin 11.4 mg/dL (0.2-1.0); Total Protein 4.2 g/dL (6.4-8.9)
[2018-09-15 07:23] LABS: Immature Granulocytes 8 % (0-9); Lymphocytes % 7 %; Metamyelocytes % 1 % (0-2); Monocytes % 7 %; Myelocytes % 2 % (0-1); Neutrophil % 78 %
[2018-09-15 07:24] LABS: ABS Lymphocytes 1.1 10^3/ul (1.0-4.8); ABS Monocytes 1.1 10^3/ul (0-0.8); ABS Neutrophils 13.9 10^3/ul (1.5-7.7)
[2018-09-15] MEDS: Potassium Chloride LIQUID* 20 MEQ PACKET PO SCH ×2 (08:34→21:21)
[2018-09-15] MEDS: RiFAXimin* 550 MG TAB PO SCH ×2 (08:34→21:21)
[2018-09-15] MEDS: Primidone TAB(*) 50 MG SCH (08:35)
[2018-09-15] MEDS: Folic Acid TAB* 1 MG PO SCH (08:35)
[2018-09-15] MEDS: Multivitamins/Minerals TAB SCH (08:35)
--- NOTE | 2018-09-15 10:40 | CONSULT ---
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 Brayan is an alcoholic who has been undergoing work up with GI for transaminitis. He apparently had relatively minor abnormalities (and reports that he has since teenage years since being treated with INH for TB exposure) when originally referred but was referred back in the setting of marked hyperbilirubinemia and referred to the ER. His bilirubin here peaked at 29 but is down to 11. Evaluation has revealed an elevated iron saturation at 75% with markedly elevated ferritin. HFE gene testing is pending. CT A/P on admission was concerning for a 7 mm mass at the head of the pancreas as well as questionable colitis. CA 19-9 was ordered and came back at 7000. MRCP questioned an ill-defined 2 cm mass at the head of the pancreas and MRI with and without was recommended. There was no ductal dilitation. His hospital course was complicated by acute worsening of his mental status with CT of the brain followed by noncontrast MRI showing a 5 cm hemorrhage in the left basal ganglia. PT has been repeatedly normal. Neurosurgery consulted and did not recommend intervention. Currently he has mild aphasia without other focal neurological deficit. In terms of his history, he reports 40 lb weight loss over the last 4 months, the initial 20 lbs intentional. He reports belching and bloating as well as intractable hiccups over the last 2 months. He denies back pain. He reports using ETOH to self medicate an essential tremor that medications have been too sedating for. Allergies/Medications Medication: Acetaminophen (Tylenol Tab*) 650 mg PO Q6H PRN PRN Reason: Pain or fever Dexamethasone Sodium Phosphate (Decadron Iv*) 4 mg IV SLOW PU Q12H [facility] Last Admin: 09/15/18 02:37 Dose: 4 mg Folic Acid (Folvite Tab*) 1 mg PO DAILY [facility] Last Admin: 09/15/18 08:35 Dose: 1 mg Hydralazine HCl (Apresoline Iv*) 5 mg IV SLOW PU Q6H PRN PRN Reason: HTN Last Admin: 09/14/18 00:08 Dose: 5 mg Cefepime HCl (Maxipime 1 Gm In Dextrose Duplex (*)) 1 gm in 50 mls @ 100 mls/ hr IV Q12H [facility] Last Admin: 09/14/18 23:27 Dose: 100 mls/hr Metronidazole/Sodium Chloride (Flagyl 500 Mg Ivpb*) 500 mg in 100 mls @ 100 mls /hr IVPB Q8H [facility] Last Admin: 09/15/18 04:22 Dose: 100 mls/hr Lactulose (Lactulose*) 30 ml PO QID [facility] Last Admin: 09/15/18 08:36 Dose: 30 ml Melatonin (Melatonin) 3 mg PO BEDTIME PRN PRN Reason: SLEEP Last Admin: 09/14/18 23:28 Dose: 3 mg Polyvinyl Alcohol (Polyvinyl Alcohol 1.4% Opth*) 1 drop BOTH EYES Q2H PRN PRN Reason: DRY EYE Potassium Chloride (Klor-Con Liquid*) 20 meq PO BID [facility] Last Admin: 09/15/18 08:34 Dose: 20 meq Primidone (Mysoline Tab(*)) 50 mg .SEE ORDER DAILY [facility] Last Admin: 09/15/18 08:35 Dose: 50 mg Rifaximin (Xifaxan*) 550 mg PO BID [facility] Last Admin: 09/15/18 08:34 Dose: 550 mg Thiamine HCl (Vitamin B-1 Tab*) 100 mg PO DAILY [facility] Last Admin: 09/15/18 10:47 Dose: 100 mg Allergies/Adverse Reactions: Allergies Allergy/AdvReac Type Severity Reaction Status Date / Time amoxicillin Allergy GI Upset Verified 09/05/18 11:10 History - Past Medical History Other History: erectile dysfunction. ETOH abuse. essential tremor. TB as child, INH treatment. low testosterone - Family History Other Family History: noncont - Social History Hx Alcohol Use: Yes Hx Tobacco Use: No Review of Systems - Review of Systems General Comments: 40 lb weight loss, belching, bloating, anorexia related to this, hiccups, tremor Physical Exam - Physical Exam Physical Examination: lying flat in NAD perr eomi scleral icterus CTA bl s1 s2 nl mildly firm midline, +hepatomegaly, nontender no le edema scattered ecchymoses intermittently aphasic mild tremor on right Results - Lab Results Lab Results: 09/11/18 09/12/18 09/12/18 11:14 05:41 12:53 WBC RBC Hgb Hct MCV MCH MCHC RDW Plt Count MPV Neut % (Auto) Lymph % (Auto) Wilkes % (Auto) Eos % (Auto) Baso % (Auto) Absolute Neuts (auto) Absolute Lymphs (auto) Absolute Monos (auto) Absolute Eos (auto) Absolute Basos (auto) Absolute Nucleated RBC Immature Gran % Neutrophils % Band Neutrophils % Lymphocytes % Monocytes % Metamyelocytes % Myelocytes % Nucleated RBC % Normal RBC Morphology Hypochromasia Anisocytosis Macrocytosis INR (Anticoag Therapy) Sodium Potassium Chloride Carbon Dioxide Anion Gap BUN Creatinine Est GFR ( Amer) Est GFR (Non-Af Amer) BUN/Creatinine Ratio Glucose POC Glucose (mg/dL) 158 H Hemoglobin A1c 4.8 Calcium Magnesium Ferritin Total Bilirubin AST ALT Alkaline Phosphatase Total Protein Albumin Globulin Albumin/Globulin Ratio Tumor Marker AFP 1.8 09/12/18 09/13/18 09/13/18 17:21 02:41 06:31 WBC RBC Hgb Hct MCV MCH MCHC RDW Plt Count MPV Neut % (Auto) Lymph % (Auto) Wilkes % (Auto) Eos % (Auto) Baso % (Auto) Absolute Neuts (auto) Absolute Lymphs (auto) Absolute Monos (auto) Absolute Eos (auto) Absolute Basos (auto) Absolute Nucleated RBC Immature Gran % Neutrophils % Band Neutrophils % Lymphocytes % Monocytes % Metamyelocytes % Myelocytes % Nucleated RBC % Normal RBC Morphology Hypochromasia Anisocytosis Macrocytosis INR (Anticoag Therapy) Sodium Potassium Chloride Carbon Dioxide Anion Gap BUN Creatinine Est GFR ( Amer) Est GFR (Non-Af Amer) BUN/Creatinine Ratio Glucose POC Glucose (mg/dL) 144 H 123 H 128 H Hemoglobin A1c Calcium Magnesium Ferritin Total Bilirubin AST ALT Alkaline Phosphatase Total Protein Albumin Globulin Albumin/Globulin Ratio Tumor Marker AFP 09/13/18 09/13/18 09/14/18 11:39 23:45 05:16 WBC RBC Hgb Hct MCV MCH MCHC RDW Plt Count MPV Neut % (Auto) Lymph % (Auto) Wilkes % (Auto) Eos % (Auto) Baso % (Auto) Absolute Neuts (auto) Absolute Lymphs (auto) Absolute Monos (auto) Absolute Eos (auto) Absolute Basos (auto) Absolute Nucleated RBC Immature Gran % Neutrophils % Band Neutrophils % Lymphocytes % Monocytes % Metamyelocytes % Myelocytes % Nucleated RBC % Normal RBC Morphology Hypochromasia Anisocytosis Macrocytosis INR (Anticoag Therapy) Sodium 134 L D Potassium 3.7 Chloride 103 Carbon Dioxide 27 Anion Gap 4 BUN 16 Creatinine 0.63 L Est GFR ( Amer) 158.3 Est GFR (Non-Af Amer) 130.8 BUN/Creatinine Ratio 25.4 H Glucose 93 POC Glucose (mg/dL) 171 H 131 H Hemoglobin A1c Calcium 7.6 L Magnesium Ferritin 1378.5 H Total Bilirubin 12.50 H* D AST 157 H ALT 136 H Alkaline Phosphatase 448 H Total Protein 4.2 L Albumin 2.3 L Globulin 1.9 L Albumin/Globulin Ratio 1.2 Tumor Marker AFP 09/14/18 09/14/18 09/15/18 05:18 11:06 05:26 WBC 16.1 H RBC 3.20 L Hgb 10.9 L Hct 32 L MCV 100 H MCH 34 H MCHC 34 RDW 17 H Plt Count 248 MPV 9.5 Neut % (Auto) Not Reportable Lymph % (Auto) Not Reportable Wilkes % (Auto) Not Reportable Eos % (Auto) Not Reportable Baso % (Auto) Not Reportable Absolute Neuts (auto) 13.9 H Absolute Lymphs (auto) 1.1 Absolute Monos (auto) 1.1 H Absolute Eos (auto) Not Reportable Absolute Basos (auto) Not Reportable Absolute Nucleated RBC Not Reportable Immature Gran % 8 Neutrophils % 78 Band Neutrophils % 5 Lymphocytes % 7 Monocytes % 7 Metamyelocytes % 1 Myelocytes % 2 H Nucleated RBC % Not Reportable Normal RBC Morphology Not Reportable Hypochromasia 1+ Anisocytosis 1+ Macrocytosis 1+ INR (Anticoag Therapy) Sodium Potassium Chloride Carbon Dioxide Anion Gap BUN Creatinine Est GFR ( Amer) Est GFR (Non-Af Amer) BUN/Creatinine Ratio Glucose POC Glucose (mg/dL) 93 133 H Hemoglobin A1c Calcium Magnesium Ferritin Total Bilirubin AST ALT Alkaline Phosphatase Total Protein Albumin Globulin Albumin/Globulin Ratio Tumor Marker AFP 09/15/18 09/15/18 05:26 05:26 WBC RBC Hgb Hct MCV MCH MCHC RDW Plt Count MPV Neut % (Auto) Lymph % (Auto) Wilkes % (Auto) Eos % (Auto) Baso % (Auto) Absolute Neuts (auto) Absolute Lymphs (auto) Absolute Monos (auto) Absolute Eos (auto) Absolute Basos (auto) Absolute Nucleated RBC Immature Gran % Neutrophils % Band Neutrophils % Lymphocytes % Monocytes % Metamyelocytes % Myelocytes % Nucleated RBC % Normal RBC Morphology Hypochromasia Anisocytosis Macrocytosis INR (Anticoag Therapy) 0.90 Sodium 134 L Potassium 3.8 Chloride 104 Carbon Dioxide 24 Anion Gap 6 BUN 14 Creatinine 0.57 L Est GFR ( Amer) 177.7 Est GFR (Non-Af Amer) 146.8 BUN/Creatinine Ratio 24.6 H Glucose 90 POC Glucose (mg/dL) Hemoglobin A1c Calcium 7.5 L Magnesium 2.0 Ferritin Total Bilirubin 11.40 H AST 190 H ALT 175 H Alkaline Phosphatase 480 H Total Protein 4.2 L Albumin 2.2 L Globulin 2.0 Albumin/Globulin Ratio 1.1 Tumor Marker AFP Assessment and Plan Impression: Complicated 58 yo M w liver failure, concern for a pancreatic mass, elevated CA 19-9 and TRANSPORT DRIVER bleed. It is difficult to put these all together. In terms of his liver, there is no clear obstructive pattern. It is possible that he has hemochromatosis and alcoholic hepatitis. His HFE panel is pending. In terms of his questionable pancreatic mass, I have recommended MRI of the pancreas with and without. Obviously his symptoms (weight loss, belching, and hiccups) along with his markedly elevated CA 19-9 are concerning for pancreatic cancer. He would ideally get an EUS with biopsy, however I do think neurosurgery needs to weigh in on when he would be able to tolerate anesthesia and pressure changes with his recent TRANSPORT DRIVER bleed. In terms of his TRANSPORT DRIVER bleed, I would get an MRI with and without contrast to see if we can see an underlying mass as the cause of this spontaneous bleed in the absence of an obvious coagulopathy. If there is a mass neurosurgical biopsy may help provide the best diagnosis. I will also check a PTT, though it was normal on admission. We will continue to follow closely with you.
[2018-09-15] MEDS: Thiamine TAB* 100 MG TAB PO SCH (10:47)
[2018-09-15] MEDS: Cefepime 1 GM in Dextrose(*) 1 GM/50 ML BAG IV SCH ×2 (12:11→23:45)
--- NOTE | 2018-09-15 14:45 | PN ---
Subjective Date of Service: 09/15/18 Interval History: Patient is feeling poorly today and is feeling weak. Patient is very discouraged with this. Before coming into the ED, patient was having frequent falls and was very somnolent for days after this. Patient has also been having significant belching and hiccups. Patient feels as if his weakness is improving in his right hand. Patient denies CP, SOB, Presyncope, F/C, N/V, abdominal pain. Patient is having 3-4 small loose bowel movements daily. Family History: Unchanged from Admission Social History: Unchanged from Admission Past Medical History: Unchanged from Admission Objective Active Medications: Acetaminophen (Tylenol Tab*) 650 mg PO Q6H PRN PRN Reason: Pain or fever Dexamethasone Sodium Phosphate (Decadron Iv*) 4 mg IV SLOW PU Q12H [facility] Last Admin: 09/15/18 14:18 Dose: 4 mg Folic Acid (Folvite Tab*) 1 mg PO DAILY [facility] Last Admin: 09/15/18 08:35 Dose: 1 mg Hydralazine HCl (Apresoline Iv*) 5 mg IV SLOW PU Q6H PRN PRN Reason: HTN Last Admin: 09/14/18 00:08 Dose: 5 mg Cefepime HCl (Maxipime 1 Gm In Dextrose Duplex (*)) 1 gm in 50 mls @ 100 mls/ hr IV Q12H [facility] Last Admin: 09/15/18 12:11 Dose: 100 mls/hr Metronidazole/Sodium Chloride (Flagyl 500 Mg Ivpb*) 500 mg in 100 mls @ 100 mls /hr IVPB Q8H [facility] Last Admin: 09/15/18 13:05 Dose: 100 mls/hr Lactulose (Lactulose*) 30 ml PO QID [facility] Last Admin: 09/15/18 13:06 Dose: 30 ml Melatonin (Melatonin) 3 mg PO BEDTIME PRN PRN Reason: SLEEP Last Admin: 09/14/18 23:28 Dose: 3 mg Polyvinyl Alcohol (Polyvinyl Alcohol 1.4% Opth*) 1 drop BOTH EYES Q2H PRN PRN Reason: DRY EYE Potassium Chloride (Klor-Con Liquid*) 20 meq PO BID [facility] Last Admin: 09/15/18 08:34 Dose: 20 meq Primidone (Mysoline Tab(*)) 50 mg .SEE ORDER DAILY [facility] Last Admin: 09/15/18 08:35 Dose: 50 mg Rifaximin (Xifaxan*) 550 mg PO BID [facility] Last Admin: 09/15/18 08:34 Dose: 550 mg Thiamine HCl (Vitamin B-1 Tab*) 100 mg PO DAILY [facility] Last Admin: 09/15/18 10:47 Dose: 100 mg Vital Signs - 8 hr 09/15/18 09/15/18 09/15/18 07:18 08:00 08:02 Temperature 97.9 F Pulse Rate 65 Respiratory 18 Rate Blood Pressure 130/75 (mmHg) O2 Sat by Pulse 98 Oximetry 09/15/18 09/15/18 11:14 12:37 Temperature 98.2 F Pulse Rate 57 96 Respiratory Rate Blood Pressure 136/73 126/80 (mmHg) O2 Sat by Pulse 98 Oximetry Oxygen Devices in Use Now: None Appearance: Patient is a 58yo male who appears stated age and is sitting in the bed in [facility]. Eyes: PERRLA, - - Severe Icterus Ears/Nose/Mouth/Throat: NL Teeth, Lips, Gums, Clear Oropharnyx Neck: NL Appearance and Movements; NL JVP, Trachea Midline Respiratory: Symmetrical Chest Expansion and Respiratory Effort, Clear to Auscultation Cardiovascular: NL Sounds; No Murmurs; No JVD, RRR Abdominal: NL Sounds; No Tenderness; No Distention, No Hepatosplenomegaly Lymphatic: No Cervical Adenopathy Extremities: No Clubbing, Cyanosis, - - 1+ Edema in B/L LE. Skin: No Rash or Ulcers, No Nodules or Sclerosis Neurological: Alert and Oriented x 3, NL Sensation, - - Right sided weakness and dysmetria. - Nutrition: Malnutrition Diagnosis/Plan Malnutrition Assessment by Registered Dietitian: Malnutrition Assessment Clinical Characteristics Chronic,Moderate Malnutrition Assessment: - 20% wt loss x past year Criteria - Mild temporal muscle wasting - < 75% estimated energy expenditure > 1 month Malnutrition Assessment: - As able, advance diet Interventions - Will offer an oral nutritional supplement, following advancement, if PO is not consistently > 50% of meals Malnutrition Assessment: Goals 1. Ultimately, adequate PO intake to promote wt repletion and hydration w/o additional undesired wt loss Result Diagrams: 09/15/18 05:26 09/15/18 05:26 Additional Lab and Data: Lab Results Microbiology and Other Data: Microbiology 09/09/18 12:00 Aerobic Blood Culture - Preliminary Blood Venous No Growth Day 1 Anaerobic Blood Culture - Preliminary No Growth Day 1 Assess/Plan/Problems-Billing Assessment: Mr Winchester is a 58yo M with PMH of essential tremor, hypogonadism, HTN, TB exposure, who is being followed as outpatient for progressive jaundice, sent to the hospital due to worsening LFTs. Patient has a pancreatic mass. Patient during the course of his hospitalization developed an intraparenchymal brain bleed. - Patient Problems (1) Pancreatic mass Current Visit: Yes Status: Acute Comment: - Incidental finding on CT of a 0.5cm pancreatic mass, no ductal dilation - Variable sizes on different exams - Appreciate Oncology input, requested MRI of brain and Pancreas with and without contrast to assess tumor and brain bleed for masses - Worrying clinical signs for Pancreatic Cancer - MRCP reviewed, Dr Foss (GI) recommended EUS when stable - CEA is 7.2 and Ca 19-9 is 7513,repeat CA 19-9 pending - Lipase slightly elevated at admission (2) Alcohol abuse Current Visit: Yes Status: Acute Code(s): F10.10 - ALCOHOL ABUSE, UNCOMPLICATED SNOMED Code(s): 43010665 Comment: - Patient stated he drinks to self treat his tremors and didn't think he needed assistance quitting, but his fiance provides collateral information he drinks much more than assumed and has gone through withdrawal before. - No residual signs of withdrawal (3) Alcoholic hepatitis Current Visit: Yes Status: Acute Code(s): K70.10 - ALCOHOLIC HEPATITIS WITHOUT ASCITES SNOMED Code(s): 575013227 Comment: - Fiance describes EOTH intake much higher than what he described on admission, with hidden bottles and prior episodes of withdrawal - Will continue Thiamine supplementation - GI input appreciated - Dr Forte feels his clinical picture is compatible with alcoholic hepatitis. - Component of hemochromatosis, also consistent with hypogonadism. - With his pancreatic lesion, even without ductal dilatation, recommended EUS - when stable, will rely on neurosurgery to caution on when able to tolerate anesthesia with brain bleed - Continue IV steroids and begin taper from dose for vasogenic edema back to dose for alcoholic hepatitis - Bilirubin improving. (4) Colonic thickening Current Visit: Yes Status: Acute Code(s): K63.9 - DISEASE OF INTESTINE, UNSPECIFIED SNOMED Code(s): 946042374 Comment: - Incidental finding of ascending and transverse colon thickening suggestive of colitis, but patient is asymptomatic. - Possibly related to hypoalbuminemia - Given hepatic dysfunction and possibly hemochromatosis, predisposition to bacterial gastroenteritis - Continue Cefepime and Metronidazole. (5) Essential tremor Current Visit: Yes Status: Acute Code(s): G25.0 - ESSENTIAL TREMOR SNOMED Code(s): 522038384 Comment: - Continue Ativan and Primidone (6) HTN (hypertension) Current Visit: Yes Status: Acute Code(s): I10 - ESSENTIAL (PRIMARY) HYPERTENSION SNOMED Code(s): 70935763 Comment: - Generally normotensive, avoid hypertension - Episode of hypotension today likely vagal - Intermittently hypertensive off meds, continue to monitor and may need to start medication if he continues to be elevated - Continue Hydralazine PRN (7) Increased ammonia level Current Visit: Yes Status: Acute Code(s): R79.89 - OTHER SPECIFIED ABNORMAL FINDINGS OF BLOOD CHEMISTRY SNOMED Code(s): 077761035 Comment: - Possible hepatic encephalopathy, continue Lactulose, goal 2-3 BMs daily - Continue Xifaxan (8) Intraparenchymal hemorrhage of brain Current Visit: Yes Status: Acute Code(s): I61.9 - NONTRAUMATIC INTRACEREBRAL HEMORRHAGE, UNSPECIFIED SNOMED Code(s): 533097402 Comment: - Basal ganglia intraparencymal bleed - Neurosurgery consult, input appreciated. Non surgical - 09/11/18 - f/u ct scan stable - Unclear cause, Neurosurgery will reevaluate to assess for the possibility of this being a bleed into a brain metastasis. (9) Moderate protein-calorie malnutrition Current Visit: Yes Status: Acute Code(s): E44.0 - MODERATE PROTEIN-CALORIE MALNUTRITION SNOMED Code(s): 896806170 Comment: - Dietitian input appreciated - 20% wt loss x past year, with mild temporal muscle wasting, and < 75% estimated energy expenditure > 1 month - Received tube feeds briefly, he is now more alert - Continue to monitor I/O (10) Vasogenic cerebral edema Current Visit: Yes Status: Acute Code(s): G93.6 - CEREBRAL EDEMA SNOMED Code(s): 833192589 Comment: - Continue Dexamethasone with improvement in mental status - Discussed with Neurosurgery and will wean. (11) DVT prophylaxis Current Visit: Yes Status: Acute Code(s): [id number] - SNOMED Code(s): 779253648 Comment: - SCDs only - No chemical DVT prophylaxis in the setting of ICH (12) Full code status Current Visit: Yes Status: Acute Code(s): Z78.9 - OTHER SPECIFIED HEALTH STATUS SNOMED Code(s): 652809021 Status and Disposition: Inpatient. Discharge when medically stable, suspect he will need rehab at discharge. Possible PMRU tomorrow.
[2018-09-15] MEDS ORDERED: Gadoteridol* (CONTRAST) 279.3 MG/ML 10 ML IV ONE (17:13)
[2018-09-15] MEDS: LORazepam TAB(*) 0.5 MG PO PRN (19:37)
[2018-09-16] MEDS: Dexamethasone IV* 4 MG/ML 1 ML (4 MG) IV SLOW PU SCH (02:28)
[2018-09-16] MEDS: metroNIDAZOLE IV 500 MG/100ML* 500 MG/100 ML BAG IVPB SCH (04:26)
[2018-09-16 06:03] LABS: Hematocrit 31 % (42-52); Hemoglobin 10.4 g/dl (14.0-18.0); Mean Corpuscular HGB Conc 33 g/dl (31-36); Mean Corpuscular Hemoglobin 34 pg (27-31); Mean Corpuscular Volume 101 fL (80-94); Mean Platelet Volume 9.5 fL (7.4-10.4); Platelet Count 250 10^3/ul (150-450); Red Cell Distribution Width 18 % (10.5-15); White Blood Count 17.4 10^3/ul (3.5-10.8)
[2018-09-16 06:13] LABS: Albumin 2.2 g/dL (3.2-5.2); Albumin/Globulin Ratio 1.1 (1-3); BUN/Creatinine Ratio 23.7 (8-20); Calcium 7.6 mg/dL (8.6-10.3); EGFR African American 170.7 (>60); EGFR Non-African American 141.1 (>60); Potassium 3.8 mmol/L (3.5-5.0); Total Bilirubin 10.2 mg/dL (0.2-1.0); Total Protein 4.2 g/dL (6.4-8.9)
[2018-09-16 07:26] LABS: Lymphocytes % 6 %; Metamyelocytes % 1 % (0-2); Monocytes % 7 %; Myelocytes % 2 % (0-1); Neutrophil % 81 %
[2018-09-16 07:27] LABS: Immature Granulocytes 6 % (0-9); Nucleated Red Blood Cells/100 1 (0-0); Polychromasia 1+; Spherocytes 1+
[2018-09-16 07:28] LABS: ABS Neutrophils 15.138 10^3/ul (1.5-7.7)
[2018-09-16] MEDS: Thiamine TAB* 100 MG TAB PO SCH (08:58)
[2018-09-16] MEDS: Primidone TAB(*) 50 MG SCH (08:58)
[2018-09-16] MEDS: RiFAXimin* 550 MG TAB PO SCH ×2 (08:58→20:46)
[2018-09-16] MEDS: Folic Acid TAB* 1 MG PO SCH (08:59)
[2018-09-16] MEDS: Potassium Chloride LIQUID* 20 MEQ PACKET PO SCH ×2 (09:00→20:44)
[2018-09-16] MEDS: predniSONE TAB* 20 MG PO SCH (13:04)
[2018-09-16] MEDS ORDERED: Dexamethasone IV* 4 MG/ML 1 ML (4 MG) IV SLOW PU SCH (15:00)
--- NOTE | 2018-09-16 16:46 | PN ---
Subjective Date of Service: 09/16/18 Interval History: Patient is feeling better today and is very heartened by his progress. Patient has persistent expressive aphasia. Patient denies CP, SOB, dizziness, abdominal pain, diarrhea, dysuria, or other pain. Family History: Unchanged from Admission Social History: Unchanged from Admission Past Medical History: Unchanged from Admission Objective Active Medications: Acetaminophen (Tylenol Tab*) 650 mg PO Q6H PRN PRN Reason: Pain or fever Folic Acid (Folvite Tab*) 1 mg PO DAILY [facility] Last Admin: 09/16/18 08:59 Dose: 1 mg Lactulose (Lactulose*) 30 ml PO QID [facility] Last Admin: 09/16/18 13:04 Dose: 30 ml Lorazepam (Ativan Tab(*)) 0.5 mg PO Q8H PRN PRN Reason: ANXIETY Last Admin: 09/15/18 19:37 Dose: 0.5 mg Melatonin (Melatonin) 3 mg PO BEDTIME PRN PRN Reason: SLEEP Last Admin: 09/14/18 23:28 Dose: 3 mg Polyvinyl Alcohol (Polyvinyl Alcohol 1.4% Opth*) 1 drop BOTH EYES Q2H PRN PRN Reason: DRY EYE Potassium Chloride (Klor-Con Liquid*) 20 meq PO BID [facility] Last Admin: 09/16/18 09:00 Dose: 20 meq Prednisone (Deltasone Tab*) 40 mg PO DAILY [facility] Last Admin: 09/16/18 13:04 Dose: 40 mg Primidone (Mysoline Tab(*)) 50 mg .SEE ORDER DAILY [facility] Last Admin: 09/16/18 08:58 Dose: 50 mg Rifaximin (Xifaxan*) 550 mg PO BID [facility] Last Admin: 09/16/18 08:58 Dose: 550 mg Thiamine HCl (Vitamin B-1 Tab*) 100 mg PO DAILY [facility] Last Admin: 09/16/18 08:58 Dose: 100 mg Vital Signs - 8 hr 09/16/18 09/16/18 11:01 15:17 Temperature 97.4 F 97.4 F Pulse Rate 65 59 Respiratory 16 16 Rate Blood Pressure 129/74 125/68 (mmHg) O2 Sat by Pulse 98 99 Oximetry Oxygen Devices in Use Now: None - Nutrition: Malnutrition Diagnosis/Plan Malnutrition Assessment by Registered Dietitian: Malnutrition Assessment Clinical Characteristics Chronic,Moderate Malnutrition Assessment: - 20% wt loss x past year Criteria - Mild temporal muscle wasting - < 75% estimated energy expenditure > 1 month Malnutrition Assessment: - As able, advance diet Interventions - Will offer an oral nutritional supplement, following advancement, if PO is not consistently > 50% of meals Malnutrition Assessment: Goals 1. Ultimately, adequate PO intake to promote wt repletion and hydration w/o additional undesired wt loss Result Diagrams: 09/16/18 05:36 09/16/18 05:36 Additional Lab and Data: Lab Results Microbiology and Other Data: Microbiology 09/09/18 12:00 Aerobic Blood Culture - Preliminary Blood Venous No Growth Day 1 Anaerobic Blood Culture - Preliminary No Growth Day 1 Assess/Plan/Problems-Billing Assessment: Mr Winchester is a 58yo M with PMH of essential tremor, hypogonadism, HTN, TB exposure, who is being followed as outpatient for progressive jaundice, sent to the hospital due to worsening LFTs. Patient has a pancreatic mass. Patient during the course of his hospitalization developed an intraparenchymal brain bleed. - Patient Problems (1) Pancreatic mass Current Visit: Yes Status: Acute Comment: - Incidental finding on CT of a 0.5cm pancreatic mass, no ductal dilation - 5aat8rob.6cm on MRI, cystic morphology. - Variable sizes on different exams - Appreciate Oncology input, requested MRI of brain and Pancreas with and without contrast to assess tumor and brain bleed for masses - Worrying clinical signs for Pancreatic Cancer - MRCP reviewed, Dr Foss (GI) recommended EUS when stable, also recommended by Dr. Palmer of GI - Will attempt to transfer due to possiblity of Pancreatic Malignancy requiring resection. - CEA is 7.2 and Ca 19-9 is 7513,repeat CA 19-9 pending - Lipase slightly elevated at admission (2) Alcohol abuse Current Visit: Yes Status: Acute Code(s): F10.10 - ALCOHOL ABUSE, UNCOMPLICATED SNOMED Code(s): 34594503 Comment: - Patient stated he drinks to self treat his tremors and didn't think he needed assistance quitting, but his fiancee provides collateral information he drinks much more than assumed and has gone through withdrawal before. - No residual signs of withdrawal (3) Alcoholic hepatitis Current Visit: Yes Status: Acute Code(s): K70.10 - ALCOHOLIC HEPATITIS WITHOUT ASCITES SNOMED Code(s): 429145316 Comment: - Fiance describes EOTH intake much higher than what he described on admission, with hidden bottles and prior episodes of withdrawal - Will continue Thiamine supplementation - GI input appreciated - Dr Forte feels his clinical picture is compatible with alcoholic hepatitis. - Component of hemochromatosis, also consistent with hypogonadism. - With his pancreatic lesion, even without ductal dilatation, recommended EUS, will attempt to transfer when able. - Continue Prednisone 40mg daily for alcoholic hepatitis. - Bilirubin improving. - LFTs and Alkaline Phosphatase persistently elevated. (4) Colonic thickening Current Visit: Yes Status: Acute Code(s): K63.9 - DISEASE OF INTESTINE, UNSPECIFIED SNOMED Code(s): 235493490 Comment: - Incidental finding of ascending and transverse colon thickening suggestive of colitis, but patient is asymptomatic. - Possibly related to hypoalbuminemia - Given hepatic dysfunction and possibly hemochromatosis, predisposition to bacterial gastroenteritis - Complete 7 day course of antibiotics with no residual symptoms, will discontinue antibiotics. (5) Essential tremor Current Visit: Yes Status: Acute Code(s): G25.0 - ESSENTIAL TREMOR SNOMED Code(s): 856108580 Comment: - Continue Ativan and Primidone (6) HTN (hypertension) Current Visit: Yes Status: Acute Code(s): I10 - ESSENTIAL (PRIMARY) HYPERTENSION SNOMED Code(s): 97897562 Comment: - Generally normotensive, avoid hypertension - Continue Hydralazine PRN (7) Increased ammonia level Current Visit: Yes Status: Acute Code(s): R79.89 - OTHER SPECIFIED ABNORMAL FINDINGS OF BLOOD CHEMISTRY SNOMED Code(s): 887263055 Comment: - Possible hepatic encephalopathy, continue Lactulose, goal 3-4 BMs daily which is consistently being met. - Continue Xifaxan (8) Intraparenchymal hemorrhage of brain Current Visit: Yes Status: Acute Code(s): I61.9 - NONTRAUMATIC INTRACEREBRAL HEMORRHAGE, UNSPECIFIED SNOMED Code(s): 931126429 Comment: - Basal ganglia intraparencymal bleed - Neurosurgery consult, input appreciated. Non surgical - 09/11/18 - f/u ct scan stable - Unclear cause, Neurosurgery will reevaluate to assess for the possibility of this being a bleed into a brain metastasis. (9) Moderate protein-calorie malnutrition Current Visit: Yes Status: Acute Code(s): E44.0 - MODERATE PROTEIN-CALORIE MALNUTRITION SNOMED Code(s): 060091989 Comment: - Dietitian input appreciated - 20% wt loss x past year, with mild temporal muscle wasting, and < 75% estimated energy expenditure > 1 month - Received tube feeds briefly, he is now more alert - Continue to monitor I/O (10) Vasogenic cerebral edema Current Visit: Yes Status: Acute Code(s): G93.6 - CEREBRAL EDEMA SNOMED Code(s): 859244155 Comment: - Transitioned to prednisone - Discussed with Neurosurgery (11) DVT prophylaxis Current Visit: Yes Status: Acute Code(s): WUE0668 - SNOMED Code(s): 265135002 Comment: - SCDs only - No chemical DVT prophylaxis in the setting of ICH (12) Full code status Current Visit: Yes Status: Acute Code(s): Z78.9 - OTHER SPECIFIED HEALTH STATUS SNOMED Code(s): 362898555 Status and Disposition: Inpatient. Discharge when medically stable, suspect he will need rehab at discharge. Will attempt to transfer to higher level of care when able.
[2018-09-16] MEDS: LORazepam TAB(*) 0.5 MG PO PRN (20:50)
[2018-09-17 05:21] LABS: Hematocrit 30 % (42-52); Hemoglobin 10.4 g/dl (14.0-18.0); Mean Corpuscular HGB Conc 34 g/dl (31-36); Mean Corpuscular Hemoglobin 35 pg (27-31); Mean Corpuscular Volume 102 fL (80-94); Mean Platelet Volume 9.3 fL (7.4-10.4); Platelet Count 247 10^3/ul (150-450); Red Blood Count 2.97 10^6/ul (4.00-5.40); Red Cell Distribution Width 17 % (10.5-15); White Blood Count 14.9 10^3/ul (3.5-10.8)
[2018-09-17 05:35] LABS: Albumin 2.3 g/dL (3.2-5.2); Albumin/Globulin Ratio 1.2 (1-3); Calcium 7.5 mg/dL (8.6-10.3); EGFR African American 181.3 (>60); EGFR Non-African American 149.9 (>60); Globulin 1.9 g/dL (2-4); Magnesium 2.1 mg/dL (1.9-2.7); Potassium 3.7 mmol/L (3.5-5.0); Total Bilirubin 9.1 mg/dL (0.2-1.0); Total Protein 4.2 g/dL (6.4-8.9)
[2018-09-17 05:40] LABS: Lymphocytes % 5 %; Metamyelocytes % 1 % (0-2); Monocytes % 8 %; Myelocytes % 5 % (0-1); Neutrophil % 76 %
[2018-09-17 05:41] LABS: Immature Granulocytes 9 % (0-9); Promyelocytes % 1 %
[2018-09-17 05:42] LABS: ABS Eosinophils 0.3 10^3/ul (0-0.6); ABS Neutrophils 12.7 10^3/ul (1.5-7.7)
[2018-09-17] MEDS: Primidone TAB(*) 50 MG SCH (09:34)
[2018-09-17] MEDS: LORazepam TAB(*) 0.5 MG PO PRN ×2 (09:34→20:12)
[2018-09-17] MEDS: Folic Acid TAB* 1 MG PO SCH (09:34)
[2018-09-17] MEDS: predniSONE TAB* 20 MG PO SCH (09:34)
[2018-09-17] MEDS: Thiamine TAB* 100 MG TAB PO SCH (09:35)
[2018-09-17] MEDS: Potassium Chloride LIQUID* 20 MEQ PACKET PO SCH ×2 (09:35→20:08)
[2018-09-17] MEDS: RiFAXimin* 550 MG TAB PO SCH ×2 (09:35→20:08)
--- NOTE | 2018-09-17 13:22 | PN ---
Subjective Date of Service: 09/17/18 Interval History: Patient continues to feel better day after day. Patient states that he feels much more stable and oriented after the ativan administration. Patient generally feels very anxious. Patient denies Cp, SOB, Abdominal pain, diarrhea, F/C, N/V, presyncope, dizziness, worsening weakness, or other pain. Patient and filindseye are in agreement with the current plan for transfer on Wednesday for EUS. Family History: Unchanged from Admission Social History: Unchanged from Admission Past Medical History: Unchanged from Admission Objective Active Medications: Acetaminophen (Tylenol Tab*) 650 mg PO Q6H PRN PRN Reason: Pain or fever Folic Acid (Folvite Tab*) 1 mg PO DAILY [facility] Last Admin: 09/17/18 09:34 Dose: 1 mg Lactulose (Lactulose*) 30 ml PO QID [facility] Last Admin: 09/17/18 09:35 Dose: 30 ml Lorazepam (Ativan Tab(*)) 0.5 mg PO BID PRN PRN Reason: ANXIETY Melatonin (Melatonin) 3 mg PO BEDTIME PRN PRN Reason: SLEEP Last Admin: 09/14/18 23:28 Dose: 3 mg Polyvinyl Alcohol (Polyvinyl Alcohol 1.4% Opth*) 1 drop BOTH EYES Q2H PRN PRN Reason: DRY EYE Potassium Chloride (Klor-Con Liquid*) 20 meq PO BID [facility] Last Admin: 09/17/18 09:35 Dose: 20 meq Prednisone (Deltasone Tab*) 40 mg PO DAILY [facility] Last Admin: 09/17/18 09:34 Dose: 40 mg Primidone (Mysoline Tab(*)) 50 mg .SEE ORDER DAILY [facility] Last Admin: 09/17/18 09:34 Dose: 50 mg Rifaximin (Xifaxan*) 550 mg PO BID [facility] Last Admin: 09/17/18 09:35 Dose: 550 mg Thiamine HCl (Vitamin B-1 Tab*) 100 mg PO DAILY [facility] Last Admin: 09/17/18 09:35 Dose: 100 mg Vital Signs - 8 hr 09/17/18 09/17/18 09/17/18 07:34 08:00 09:34 Temperature 97.8 F Pulse Rate 56 Respiratory 16 16 20 Rate Blood Pressure 140/69 (mmHg) O2 Sat by Pulse 99 Oximetry 09/17/18 09/17/18 11:27 12:10 Temperature 97.2 F Pulse Rate 51 Respiratory 16 16 Rate Blood Pressure 131/67 (mmHg) O2 Sat by Pulse 98 Oximetry Oxygen Devices in Use Now: None Appearance: Patient is a 58yo male who appears stated age and is sitting in the bed in NAD. Eyes: PERRLA, - - Severe but diminishing icterus. Ears/Nose/Mouth/Throat: NL Teeth, Lips, Gums, Clear Oropharnyx, Mucous Membranes Moist Neck: NL Appearance and Movements; NL JVP, Trachea Midline Respiratory: Symmetrical Chest Expansion and Respiratory Effort, Clear to Auscultation Cardiovascular: NL Sounds; No Murmurs; No JVD, RRR Abdominal: NL Sounds; No Tenderness; No Distention, - - Possible slight ascites Lymphatic: No Cervical Adenopathy Extremities: No Clubbing, Cyanosis, - - 1+ edema B/L LE. Skin: No Nodules or Sclerosis Neurological: Alert and Oriented x 3, - - CN II-XII intact. Discoordination and weakness of right side. - Nutrition: Malnutrition Diagnosis/Plan Malnutrition Assessment by Registered Dietitian: Malnutrition Assessment Clinical Characteristics Chronic,Moderate Malnutrition Assessment: - 20% wt loss x past year Criteria - Mild temporal muscle wasting - < 75% estimated energy expenditure > 1 month Malnutrition Assessment: - As able, advance diet Interventions - Will offer an oral nutritional supplement, following advancement, if PO is not consistently > 50% of meals Malnutrition Assessment: Goals 1. Ultimately, adequate PO intake to promote wt repletion and hydration w/o additional undesired wt loss Result Diagrams: 09/17/18 05:02 09/17/18 05:02 Additional Lab and Data: Lab Results Microbiology and Other Data: Microbiology 09/09/18 12:00 Aerobic Blood Culture - Preliminary Blood Venous No Growth Day 1 Anaerobic Blood Culture - Preliminary No Growth Day 1 Assess/Plan/Problems-Billing Assessment: Mr Winchester is a 58yo M with PMH of essential tremor, hypogonadism, HTN, TB exposure, who is being followed as outpatient for progressive jaundice, sent to the hospital due to worsening LFTs. Patient has a pancreatic mass. Patient during the course of his hospitalization developed an intraparenchymal brain bleed. - Patient Problems (1) Pancreatic mass Current Visit: Yes Status: Acute Comment: - Incidental finding on CT of a 0.5cm pancreatic mass, no ductal dilation - 1bxa1neg.6cm on MRI, cystic morphology. - Variable sizes on different exams - Appreciate Oncology input, requested MRI of brain and Pancreas with and without contrast shows no brain mass and mass as above without intrahepatic ductal dilatation - Worrying clinical signs for Pancreatic Cancer - MRCP reviewed, Dr Foss (GI) recommended EUS when stable, also recommended by Dr. Palmer of GI - Will attempt to transfer due to possiblity of Pancreatic Malignancy requiring resection. - CEA is 7.2 and Ca 19-9 is 7513,repeat CA 19-9 still over 4000 - Lipase slightly elevated at admission (2) Alcohol abuse Current Visit: Yes Status: Acute Code(s): F10.10 - ALCOHOL ABUSE, UNCOMPLICATED SNOMED Code(s): 15311307 Comment: - Patient stated he drinks to self treat his tremors and didn't think he needed assistance quitting, but his fiancee provides collateral information he drinks much more than assumed and has gone through withdrawal before. - No residual signs of withdrawal - Feels better with ativan at home dose for anxiety/tremor. May benefit from fdc anti-anxiety treatment when acute phase of illness has resolved. (3) Alcoholic hepatitis Current Visit: Yes Status: Acute Code(s): K70.10 - ALCOHOLIC HEPATITIS WITHOUT ASCITES SNOMED Code(s): 254116029 Comment: - Jenn describes EOTH intake much higher than what he described on admission, with hidden bottles and prior episodes of withdrawal - Will continue Thiamine supplementation - GI input appreciated - Dr Forte feels his clinical picture is compatible with alcoholic hepatitis. - Component of hemochromatosis, also consistent with hypogonadism. - With his pancreatic lesion, even without ductal dilatation, recommended EUS, will attempt to transfer when able. - Continue Prednisone 40mg daily for alcoholic hepatitis. - Bilirubin improving. - LFTs and Alkaline Phosphatase persistently elevated. (4) Colonic thickening Current Visit: Yes Status: Acute Code(s): K63.9 - DISEASE OF INTESTINE, UNSPECIFIED SNOMED Code(s): 115549074 Comment: - Incidental finding of ascending and transverse colon thickening suggestive of colitis, but patient is asymptomatic. - Possibly related to hypoalbuminemia - Given hepatic dysfunction and possibly hemochromatosis, predisposition to bacterial gastroenteritis - Complete 7 day course of antibiotics with no residual symptoms, will discontinue antibiotics. (5) Essential tremor Current Visit: Yes Status: Acute Code(s): G25.0 - ESSENTIAL TREMOR SNOMED Code(s): 294371135 Comment: - Continue Ativan and Primidone (6) HTN (hypertension) Current Visit: Yes Status: Acute Code(s): I10 - ESSENTIAL (PRIMARY) HYPERTENSION SNOMED Code(s): 38991695 Comment: - Generally normotensive, avoid hypertension - Continue Hydralazine PRN (7) Increased ammonia level Current Visit: Yes Status: Acute Code(s): R79.89 - OTHER SPECIFIED ABNORMAL FINDINGS OF BLOOD CHEMISTRY SNOMED Code(s): 597415481 Comment: - Possible hepatic encephalopathy, continue Lactulose, goal 3-4 BMs daily which is consistently being met. - Continue Xifaxan (8) Intraparenchymal hemorrhage of brain Current Visit: Yes Status: Acute Code(s): I61.9 - NONTRAUMATIC INTRACEREBRAL HEMORRHAGE, UNSPECIFIED SNOMED Code(s): 182147913 Comment: - Basal ganglia intraparencymal bleed - Neurosurgery consult, input appreciated. Non surgical - 09/11/18 - f/u ct scan stable - Unclear cause, Neurosurgery will reevaluate to assess for the possibility of this being a bleed into a brain metastasis. (9) Moderate protein-calorie malnutrition Current Visit: Yes Status: Acute Code(s): E44.0 - MODERATE PROTEIN-CALORIE MALNUTRITION SNOMED Code(s): 760316981 Comment: - Dietitian input appreciated - 20% wt loss x past year, with mild temporal muscle wasting, and < 75% estimated energy expenditure > 1 month - Received tube feeds briefly, he is now more alert - Continue to monitor I/O (10) Vasogenic cerebral edema Current Visit: Yes Status: Acute Code(s): G93.6 - CEREBRAL EDEMA SNOMED Code(s): 447331920 Comment: - Transitioned to prednisone - Discussed with Neurosurgery (11) DVT prophylaxis Current Visit: Yes Status: Acute Code(s): ABS9244 - SNOMED Code(s): 748606125 Comment: - SCDs only - No chemical DVT prophylaxis in the setting of ICH (12) Full code status Current Visit: Yes Status: Acute Code(s): Z78.9 - OTHER SPECIFIED HEALTH STATUS SNOMED Code(s): 091263078 Status and Disposition: Inpatient. Discharge when medically stable, suspect he will need rehab at discharge. Will attempt to transfer to higher level of care when able, will be available on Wednesday at [facility].
[2018-09-18 06:10] LABS: Albumin 2.3 g/dL (3.2-5.2); Albumin/Globulin Ratio 1.2 (1-3); BUN/Creatinine Ratio 26.9 (8-20); Calcium 7.5 mg/dL (8.6-10.3); EGFR African American 197.5 (>60); EGFR Non-African American 163.2 (>60); Globulin 1.9 g/dL (2-4); Magnesium 1.9 mg/dL (1.9-2.7); Potassium 3.5 mmol/L (3.5-5.0); Total Bilirubin 8.8 mg/dL (0.2-1.0); Total Protein 4.2 g/dL (6.4-8.9)
[2018-09-18 06:39] LABS: Immature Granulocytes 8 % (0-9); Lymphocytes % 8 %; Metamyelocytes % 2 % (0-2); Microcytosis 2+; Monocytes % 10 %; Myelocytes % 4 % (0-1); Neutrophil % 74 %; Polychromasia 1+
[2018-09-18 06:40] LABS: ABS Nucleated RBC 0 10^3/ul; Hematocrit 30 % (42-52); Hemoglobin 10.3 g/dl (14.0-18.0); Mean Corpuscular HGB Conc 35 g/dl (31-36); Mean Corpuscular Hemoglobin 36 pg (27-31); Mean Corpuscular Volume 103 fL (80-94); Mean Platelet Volume 9.3 fL (7.4-10.4); Nucleated Red Blood Cells % 0; Platelet Count 272 10^3/ul (150-450); Red Blood Count 2.89 10^6/ul (4.00-5.40); Red Cell Distribution Width 17 % (10.5-15); White Blood Count 13.4 10^3/ul (3.5-10.8)
[2018-09-18] MEDS: Potassium Chloride LIQUID* 20 MEQ PACKET PO SCH ×2 (10:39→20:08)
[2018-09-18] MEDS: Folic Acid TAB* 1 MG PO SCH (10:40)
[2018-09-18] MEDS: LORazepam TAB(*) 0.5 MG PO PRN ×2 (10:40→20:13)
[2018-09-18] MEDS: RiFAXimin* 550 MG TAB PO SCH ×2 (10:40→20:08)
[2018-09-18] MEDS: predniSONE TAB* 20 MG PO SCH (10:40)
[2018-09-18] MEDS: Primidone TAB(*) 50 MG SCH (10:40)
[2018-09-18] MEDS: Thiamine TAB* 100 MG TAB PO SCH (10:41)
--- NOTE | 2018-09-18 12:24 | PN ---
Subjective Date of Service: 09/18/18 Interval History: Patient is feeling well today. Patient denies CP, SOB, dizziness, passing out, F /C, N/V, abdominal pain, dysuria, or other pain. Patient has continued aphasia but improving. Patient is persistently clumsy with right hand but is also feeling well with that. Patient and Fiancee are in favor of EUS sooner rather than later and are opting for transfer tomorrow. Family History: Unchanged from Admission Social History: Unchanged from Admission Past Medical History: Unchanged from Admission Objective Active Medications: Acetaminophen (Tylenol Tab*) 650 mg PO Q6H PRN PRN Reason: Pain or fever Folic Acid (Folvite Tab*) 1 mg PO DAILY [facility] Last Admin: 09/18/18 10:40 Dose: 1 mg Lactulose (Lactulose*) 30 ml PO QID [facility] Last Admin: 09/18/18 10:40 Dose: 30 ml Lorazepam (Ativan Tab(*)) 0.5 mg PO BID PRN PRN Reason: ANXIETY Last Admin: 09/18/18 10:40 Dose: 0.5 mg Melatonin (Melatonin) 3 mg PO BEDTIME PRN PRN Reason: SLEEP Last Admin: 09/14/18 23:28 Dose: 3 mg Polyvinyl Alcohol (Polyvinyl Alcohol 1.4% Opth*) 1 drop BOTH EYES Q2H PRN PRN Reason: DRY EYE Potassium Chloride (Klor-Con Liquid*) 20 meq PO BID [facility] Last Admin: 09/18/18 10:39 Dose: 20 meq Prednisone (Deltasone Tab*) 40 mg PO DAILY [facility] Last Admin: 09/18/18 10:40 Dose: 40 mg Primidone (Mysoline Tab(*)) 50 mg .SEE ORDER DAILY [facility] Last Admin: 09/18/18 10:40 Dose: 50 mg Rifaximin (Xifaxan*) 550 mg PO BID [facility] Last Admin: 09/18/18 10:40 Dose: 550 mg Thiamine HCl (Vitamin B-1 Tab*) 100 mg PO DAILY [facility] Last Admin: 09/18/18 10:41 Dose: 100 mg Vital Signs - 8 hr 09/18/18 09/18/18 09/18/18 07:29 08:00 10:40 Temperature 97.5 F Pulse Rate 55 Respiratory 16 16 16 Rate Blood Pressure 143/70 (mmHg) O2 Sat by Pulse 99 Oximetry Oxygen Devices in Use Now: None Appearance: Patient is a 58yo male who appears stated age and is sitting in the bed in NAD. Eyes: PERRLA, - - Significant but improving icterus. Ears/Nose/Mouth/Throat: NL Teeth, Lips, Gums, Clear Oropharnyx, Mucous Membranes Moist, - Neck: NL Appearance and Movements; NL JVP, Trachea Midline Respiratory: Symmetrical Chest Expansion and Respiratory Effort, Clear to Auscultation Cardiovascular: NL Sounds; No Murmurs; No JVD, RRR, No Edema Abdominal: NL Sounds; No Tenderness; No Distention, No Hepatosplenomegaly, - - Possible slight ascites. Lymphatic: No Cervical Adenopathy Extremities: No Clubbing, Cyanosis, - - 1+ B/L LE edema. Skin: No Nodules or Sclerosis Neurological: Alert and Oriented x 3, NL Sensation, NL Muscle Strength and Tone , - - CN II-XII intact. Right arm weakness and clumsiness. Expressive aphasia - Nutrition: Malnutrition Diagnosis/Plan Malnutrition Assessment by Registered Dietitian: Malnutrition Assessment Clinical Characteristics Chronic,Moderate Malnutrition Assessment: - 20% wt loss x past year Criteria - Mild temporal muscle wasting - < 75% estimated energy expenditure > 1 month Malnutrition Assessment: - As able, advance diet Interventions - Will offer an oral nutritional supplement, following advancement, if PO is not consistently > 50% of meals Malnutrition Assessment: Goals 1. Ultimately, adequate PO intake to promote wt repletion and hydration w/o additional undesired wt loss Result Diagrams: 09/18/18 05:16 09/18/18 05:16 Additional Lab and Data: Lab Results Microbiology and Other Data: Microbiology 09/09/18 12:00 Aerobic Blood Culture - Preliminary Blood Venous No Growth Day 1 Anaerobic Blood Culture - Preliminary No Growth Day 1 Assess/Plan/Problems-Billing Assessment: Mr Winchester is a 58yo M with PMH of essential tremor, hypogonadism, HTN, TB exposure, who is being followed as outpatient for progressive jaundice, sent to the hospital due to worsening LFTs. Patient has a pancreatic mass. Patient during the course of his hospitalization developed an intraparenchymal brain bleed. - Patient Problems (1) Pancreatic mass Current Visit: Yes Status: Acute Comment: - Incidental finding on CT of a 0.5cm pancreatic mass, no ductal dilation - [id number] on MRI, cystic morphology. - Variable sizes on different exams - Appreciate Oncology input, requested MRI of brain and Pancreas with and without contrast shows no brain mass and mass as above without intrahepatic ductal dilatation - Worrying clinical signs for Pancreatic Cancer - MRCP reviewed, Dr Foss (GI) recommended EUS when stable, also recommended by Dr. Palmer of GI - Will attempt to transfer due to possiblity of Pancreatic Malignancy requiring resection. - CEA is 7.2 and Ca 19-9 is 7513,repeat CA 19-9 still over 4000 - Lipase slightly elevated at admission (2) Alcohol abuse Current Visit: Yes Status: Acute Code(s): F10.10 - ALCOHOL ABUSE, UNCOMPLICATED SNOMED Code(s): 89101405 Comment: - Patient stated he drinks to self treat his tremors and didn't think he needed assistance quitting, but his fiancee provides collateral information he drinks much more than assumed and has gone through withdrawal before. - No residual signs of withdrawal - Feels better with ativan at home dose for anxiety/tremor. May benefit from residential anti-anxiety treatment when acute phase of illness has resolved. (3) Alcoholic hepatitis Current Visit: Yes Status: Acute Code(s): K70.10 - ALCOHOLIC HEPATITIS WITHOUT ASCITES SNOMED Code(s): 222888693 Comment: - Jenn describes EOTH intake much higher than what he described on admission, with hidden bottles and prior episodes of withdrawal - Will continue Thiamine supplementation - GI input appreciated - Dr Forte feels his clinical picture is compatible with alcoholic hepatitis. - Component of hemochromatosis, also consistent with hypogonadism. Genetic testing pending. - With his pancreatic lesion, even without ductal dilatation, recommended EUS, will attempt to transfer when able. - Continue Prednisone 40mg daily for alcoholic hepatitis. - Bilirubin improving. - LFTs and Alkaline Phosphatase persistently elevated. (4) Essential tremor Current Visit: Yes Status: Acute Code(s): G25.0 - ESSENTIAL TREMOR SNOMED Code(s): 835331919 Comment: - Continue Ativan and Primidone (5) HTN (hypertension) Current Visit: Yes Status: Acute Code(s): I10 - ESSENTIAL (PRIMARY) HYPERTENSION SNOMED Code(s): 56481774 Comment: - Generally normotensive, avoid hypertension - Continue Hydralazine PRN (6) Increased ammonia level Current Visit: Yes Status: Acute Code(s): R79.89 - OTHER SPECIFIED ABNORMAL FINDINGS OF BLOOD CHEMISTRY SNOMED Code(s): 432025631 Comment: - Possible hepatic encephalopathy, continue Lactulose, goal 3-4 BMs daily which is consistently being met. - Continue Xifaxan (7) Intraparenchymal hemorrhage of brain Current Visit: Yes Status: Acute Code(s): I61.9 - NONTRAUMATIC INTRACEREBRAL HEMORRHAGE, UNSPECIFIED SNOMED Code(s): 127315901 Comment: - Basal ganglia intraparencymal bleed - Neurosurgery consult, input appreciated. Non surgical - 09/11/18 - f/u ct scan stable as was MRI brain with expected evolution. - Unclear cause, possibly from falls, no mass or other apparent cause. (8) Vasogenic cerebral edema Current Visit: Yes Status: Acute Code(s): G93.6 - CEREBRAL EDEMA SNOMED Code(s): 425913216 Comment: - Transitioned to prednisone - Discussed with Neurosurgery (9) DVT prophylaxis Current Visit: Yes Status: Acute Code(s): DOY1957 - SNOMED Code(s): 761094377 Comment: - SCDs only - No chemical DVT prophylaxis in the setting of ICH (10) Full code status Current Visit: Yes Status: Acute Code(s): Z78.9 - OTHER SPECIFIED HEALTH STATUS SNOMED Code(s): 006720837 Status and Disposition: Inpatient. Discharge when medically stable, suspect he will need rehab at discharge. Will attempt to transfer to higher level of care when able, will be available on Wednesday at [facility].
[2018-09-19 05:48] LABS: Hematocrit 30 % (42-52); Mean Corpuscular HGB Conc 34 g/dl (31-36); Mean Corpuscular Hemoglobin 35 pg (27-31); Mean Corpuscular Volume 104 fL (80-94); Mean Platelet Volume 9.1 fL (7.4-10.4); Platelet Count 293 10^3/ul (150-450); Red Blood Count 2.86 10^6/ul (4.00-5.40); Red Cell Distribution Width 17 % (10.5-15); White Blood Count 13.6 10^3/ul (3.5-10.8)
[2018-09-19 05:55] LABS: Albumin 2.3 g/dL (3.2-5.2); Calcium 7.9 mg/dL (8.6-10.3); Magnesium 1.8 mg/dL (1.9-2.7); Potassium 3.8 mmol/L (3.5-5.0); Total Bilirubin 7.9 mg/dL (0.2-1.0)
[2018-09-19 06:01] LABS: Albumin/Globulin Ratio 1.2 (1-3); EGFR African American 206.7 (>60); EGFR Non-African American 170.8 (>60); Total Protein 4.3 g/dL (6.4-8.9)
[2018-09-19 06:53] LABS: ABS Basophils 0 10^3/ul (0-0.2); ABS Eosinophils 0.1 10^3/ul (0-0.6); ABS Lymphocytes 1.3 10^3/ul (1.0-4.8); ABS Monocytes 1.3 10^3/ul (0-0.8); ABS Neutrophils 10.9 10^3/ul (1.5-7.7); ABS Nucleated RBC 0 10^3/ul
[2018-09-19 06:56] LABS: Lymphocytes % 6 %; Metamyelocytes % 2 % (0-2); Monocytes % 2 %; Myelocytes % 2 % (0-1); Neutrophil % 87 %
[2018-09-19 06:57] LABS: Immature Granulocytes 5 % (0-9); Microcytosis 2+; Polychromasia 1+
[2018-09-19] MEDS ORDERED: Magnesium Sulfate 2 GM IV* 2 GM/50 ML BAG IVPB ONE (07:28)
[2018-09-19] MEDS ORDERED: Hydrochlorothiazide TAB* 25 MG PO SCH (09:00)
[2018-09-19] MEDS: LORazepam TAB(*) 0.5 MG PO PRN (09:21)
[2018-09-19] MEDS: Folic Acid TAB* 1 MG PO SCH (09:21)
[2018-09-19] MEDS: RiFAXimin* 550 MG TAB PO SCH (09:21)
[2018-09-19] MEDS: Potassium Chloride LIQUID* 20 MEQ PACKET PO SCH (09:21)
[2018-09-19] MEDS: Thiamine TAB* 100 MG TAB PO SCH (09:21)
[2018-09-19] MEDS: Primidone TAB(*) 50 MG SCH (09:21)
[2018-09-19] MEDS: predniSONE TAB* 20 MG PO SCH (09:21)
[2018-09-19 16:31] VITALS: BP 126/71
--- NOTE | 2018-09-19 18:37 | TRS ---
CC: Dr. Hartley * TRANSFER SUMMARY: DATE OF ADMISSION: 09/05/18 DATE OF TRANSFER: Tentatively, 09/19/18. PRIMARY CARE PROVIDER: Dr. Hartley. MY ATTENDING WHILE IN THE HOSPITAL: Dr. Brooklyn Valladares.* (DICTATED BY [facility]) PRIMARY DISCHARGE DIAGNOSES: 1. Alcoholic hepatitis. 2. Cholestasis. 3. Pancreatic mass. 4. Parenchymal hemorrhage. 5. Possible hemochromatosis. 6. Possible acalculous cholecystitis. SECONDARY DISCHARGE DIAGNOSES: 1. Essential tremor. 2. Hypogonadism with low testosterone. 3. History of hypertension. 4. History of tuberculosis exposure, status post treatment with isoniazid. STUDIES DONE WHILE IN THE HOSPITAL: Electrocardiogram from 09/05/18 shows normal sinus rhythm. No ST segment abnormalities. Early repolarization V2, V3 , normal axis. No hypertrophy or enlargement. No other significant abnormalities. Repeat EKG from 09/07/18 shows rate of 84, QTc of 476. No other significant changes. Q waves not present. Repeat EKG from 09/09/18 shows peak symmetrical T-waves in V3, V4, V5; QTc of 452, rate of 94, increased rate. No other significant changes. Repeat EKG from 09/14/18 shows rate of 55, no other significant changes from previous exam. Abdomen and pelvis CT from 09/05/18 read as there is mucosal thickening with pericolonic inflammatory change involving the ascending colon and proximal transverse colon suggestive of colitis. There is a 0.5 cm low attenuation lesion of the head of the pancreas, differential includes pancreatic neoplasm. There is no pancreatic ductal dilatation. Hepatomegaly with fatty infiltration of the liver, atherosclerosis, diverticulosis, enlarged prostate. MRCP from 09/06/18 read as gallbladder distention, wall thickening and pericholecystic fluid raising the possibility of acute acalculous cholecystitis. Alternatively, the patient has a history of hepatitis and this may account for the findings. The previously noted hypodense pancreatic mass not well evaluated with study, recommend MRI of the pancreas without and with contrast. Minimal amount of ascites. Gallbladder ultrasound from 09/05/18 read as hepatomegaly with fatty infiltration of the liver, gallbladder wall thickening with a small amount of pericholecystic fluid without sonographic Gomez sign. This was indeterminate for acute cholecystitis. Low attenuation lesion of the head of the pancreas, appears to correspond with the CT finding, but is more readily apparent on the sonogram measuring up to 3.1 cm on the current examination, differential includes pancreatic head neoplasm. Chest x-ray from 09/08/18 read as the nasogastric tube tip projects at level of the gastroesophageal junction, recommend advancing the catheter. Lungs are under- inflated. Calcific nodule above the left lung base suggestive of old granulomatous disease. Lungs are otherwise clear. Chest x-ray from 09/08/18 read as nasogastric tube is in the stomach. Chest x-ray from 09/09/18 read as gastric tube is noted. Abdomen and pelvis CT from 09/09/18 read as again notes a low attenuation lesion of the head of the pancreas measuring 0.5 cm and at the current examination, hepatomegaly with fatty infiltration of the liver. Again notes a mucosal thickening with pericolonic inflammatory change in the ascending colon and hepatic flexure suggestive of colitis. Brain CT from 09/09/18 read as intraparenchymal hematoma of the left basal ganglia with minimal vasogenic edema measuring up to 4.2 cm in size without shift. Findings were reviewed with Dr. Valladares at approximately 4:27 p.m. on 08/27. Brain MRI from 09/09/18 read as redemonstration of approximately 5.3 x 3.5 x 3.5 intraparenchymal hemorrhage involving the posterior left basal ganglia, minimum of 0.2 cm [id number] midline shift. Chest CT from 09/09/18 read as there is a gastric tube with distal tip in the gastric fundus, a side port in the gastroesophageal junction. There is mild basilar atelectatic change versus scarring. There are very small bilateral pleural effusions. There are few indeterminate left lower lobe base pulmonary nodules, the largest measuring maximum of 5 cm, possibility include atypical infection or pulmonary metastases. For patients with low risk, minimal or absent history of smoking, no other known risk factors, no routine followup is indicated. For patients with high risk, history of smoking and other known risk factors, consider optional CT at [address] from 09/11/18 read as stable region of intraparenchymal hemorrhage measuring 4.3 x 3.0 cm noted centered in the left basal ganglia. There is mild surrounding vasogenic edema. Repeat brain CT from 09/11/18 read as no changes impairing the left basal ganglia and hematoma measuring approximately 4.2 cm in greatest dimension, mild mass effect, no significant subfalcine shift, no obstructive hydrocephalus. Transthoracic echocardiogram from 09/14/18 read as the left ventricular chamber size is normal, estimated ejection fraction of 55% to 60%. There is no consistent evidence of clinically significant diastolic dysfunction, trace mitral regurgitation. There is trace tricuspid regurgitation. Unable to estimate the right ventricular systolic pressure. There is trace pulmonic regurgitation. Brain MRI from 09/15/18 with and without contrast read as there is a rim of high signal in the T1-weighted images pre-contrast consistent with methemoglobin. No obvious enhancing areas noted post-contrast. Further followup is suggested. Again noted is a large hematoma involving the left temporal lobe and temporal insula. Abdominal MRI from 09/15/18 read as there is abnormal signal in the uncinate process of the pancreas corresponding to the low density mass identified on CT and it does also demonstrate fluid signal on T2-weighted sequences and demonstrates nonenhancement and sharply circumscribed on the post-contrast images and likely cystic lesion such as IPMN. This lesion is difficult to characterize due to small dimension of the lesion. Followup exam in 3 months could be performed. Alternatively, endoscopic ultrasound could be performed to further evaluate likely the cystic lesion. MEDICATIONS AT DISCHARGE: 1. Primidone 50 mg p.o. daily. 2. Tylenol 650 mg p.o. q.6 hours as needed. 3. Artificial tears 1 drop both eyes q.2 hours as needed. 4. Folic acid 1 mg p.o. daily. 5. Lactulose 30 mL p.o. q.i.d. 6. Melatonin 3 mg p.o. at bedtime. 7. Potassium chloride 20 mEq p.o. b.i.d. 8. Prednisone 40 mg p.o. daily. 9. Rifaximin 550 mg p.o. b.i.d. 10. Thiamine 100 mg p.o. daily. 11. Hydrochlorothiazide 25 mg p.o. daily. 12. Lorazepam 0.5 mg p.o. b.i.d. as needed. 13. Trazodone 50 mg p.o. at bedtime as needed. Medications discontinued at discharge: 1. Xanax 0.5 mg p.o. daily as needed. 2. Lactulose 15 mL p.o. b.i.d. 3. Tadalafil 5 mg p.o. daily as needed. 4. Testosterone 200 mg IM weekly. HOSPITAL COURSE: This is a brief summary of the patient's presentation. For more details, please see the history and physical from Dr. Kerline Sanchez on . In brief, the patient is a 58-year-old male who has been evaluated through his gastroenterology office for elevated LFTs and elevated bilirubin. The patient has a history of TB exposure and essential tremor since his late teens. The patient in teens was exposed to tuberculosis and treated for latent tuberculosis with isoniazid. The patient states that in September of 2017, his tremor worsened and he began drinking much more alcohol 3 to 4 beers a day. The patient was started on Inderal and then primidone. The patient went to see a safety council director and was noted to have a severely elevated bilirubin and mildly elevated liver function tests. The patient was likely drinking much more than he stated per the amount of empty bottles found in his apartment by his fiancee. The patient had lost about 40 pounds since April of 2018, some of it intentionally. The patient came into the hospital, initially had abdomen and pelvis CT and gallbladder ultrasound as above, which showed no signs of pancreatic or biliary dilatation. However, the patient did have a severely elevated bilirubin at 15.8. The patient was admitted to the hospital on 09/05/18. The patient underwent an MRCP and was seen in consultation by Dr. Reynold Forte, who believes that there was a component of possible hemochromatosis as well as alcoholic hepatitis in this patient and started the patient on prednisone. The patient had increased ammonia level. The patient was asymptomatic from his colonic thickening and no other signs of colitis. The patient was started on alcohol withdrawal protocol. The patient had a ferritin greater than 1500 with a percent saturation of 75% raising the concern of hemochromatosis. The patient had no previous history or known family history of hemochromatosis. The patient on 09/07/18 began to show signs of alcohol withdrawal and was continued on his alcohol withdrawal protocol. The patient's bilirubin continued to elevate. The patient was started on lactulose and rifaximin, which was able to decrease his ammonia level. The patient's bilirubin continued to elevate at a rapid pace. The patient's mental status deteriorated. There was concern despite the patient not having ductal dilatation that he needed emergent endoscopic ultrasound and possible ERCP and stenting. The patient was transferred to the ICU, was given a lactulose enema. On 09/08/18, the patient at this time was attempted to be transferred to [facility] for urgent EUS. The patient had anti-herpes virus and HIV antibodies as well as an LDH and haptoglobin, which were negative for signs of hemolysis and positive only for herpes simplex virus 1 IgG. The patient had a normal INR while in the hospital. The patient on 09/09/18 due to concerns for continued altered mental status, had a brain CT and a repeat abdomen and pelvis CT. The brain CT showed the initial hemorrhage as above. The patient also had a fever up to 102 degrees Fahrenheit and was started empirically on ceftriaxone and Flagyl. The patient had persistent fevers, which trended down over several days. The patient had a chest CT, which was read as above, showed no acute process, but pulmonary nodules likely consistent with his history of tuberculosis exposure. The patient was seen in consultation by Dr. Robert Myers of Neurosurgery, who believes that the patient's brain MRI did not show concern for mass and no neurosurgical intervention was recommended. Followup brain CT was ordered on 09/11/18, which showed no progression. The patient's mental status continued to be poor with signs of alcohol withdrawal and garbled speech, right- sided weakness. The patient's transfer was canceled at this time due to him being unstable for a procedure due to his brain hemorrhage. The patient's mental status, however, on 09/12/18 began to improve. His bilirubin started to trend down. His LFTs remained fluctuating. The patient around this time was started on dexamethasone 4 mg IV q.6 hours for vasogenic edema and was able to be tapered off this slowly. The patient had a slightly elevated troponin during his hospitalization likely representing demand ischemia. The patient had on 09/14/18 a transthoracic echocardiogram read as above without any concerns. The patient had 1 episode of presyncope after eating a large meal and then attempting to stand up in the setting of nausea likely representing a vasovagal episode, which has not recurred. The patient on 09/15/18 was seen in consultation by Dr. Zaria Snell of Oncology, who requested further evaluation of the patient's brain bleed and pancreas with contrasted MRIs, which were done and read as above. The patient had worrying signs for pancreatic cancer including weight loss, frequent belching, and hiccups. The patient was discussed again with Neurosurgery, who stated that he was now stable for endoscopic ultrasound. The patient was discussed with Gastroenterology at [facility], who stated that they would accept the patient for transfer for endoscopic ultrasound on 09/20/18 to further evaluate his pancreatic mass. The patient from 09/15/18 to 09/18/18 significantly improved in his functional status as well as his LFTs continued to trend down. The patient's residual deficits from his brain bleed consisted of right-sided weakness and moderate expressive aphasia, which also improved throughout this time. The patient was stable for transport to higher level of care on 09/19/18 for endoscopic ultrasound. The patient's blood pressure was slightly elevated on 09/19/18 and he was started on hydrochlorothiazide on this day. The patient also had significant anxiety and was started on Ativan and trazodone for this and for insomnia. The patient throughout his hospitalization was averaging approximately 3 to 4 loose bowel movements daily consistent with goals for hepatic encephalopathy and showed no further signs of hepatic encephalopathy. PHYSICAL EXAM ON THE DAY OF DISCHARGE: General: The patient is a 58-year-old male, who appears stated age, sitting comfortably in bed, in no acute distress. Vital Signs: At the time of evaluation, temperature 97.8, pulse rate of 49, respiratory rate 20, oxygen saturation 99% on room air, blood pressure 160/68. HEENT: Head normocephalic, atraumatic. Sclerae show significant icterus. No conjunctival injection. Nasal mucosa moist. Oral mucosa moist. No pharyngeal erythema, discharge, or exudate. Neck: Supple, nontender. No lymphadenopathy. No carotid bruits auscultated. No JVD. Cardiac: Regular rate and rhythm. No clicks, murmurs, gallops, or rubs. Pulses are 2+ in the bilateral dorsalis pedis, posterior tibialis, and radial areas. 2+ bilateral pitting edema consistent with previous examination. Respiratory: Clear to auscultation bilaterally. No wheezes, rales, or rhonchi. Good air exchange bilaterally. Abdomen: Soft, nontender, full. Fluid wave negative. No hepatosplenomegaly. No abdominal bruits auscultated. No hepatojugular reflux. Genitourinary: No suprapubic or CVA tenderness. Skin: Palate shows signs of jaundice. Various bruises are present in various stages of healing throughout the patient's body. Neuro: Cranial nerves II through XII intact. Right-sided weakness at approximately 4/5. Discoordination and dysmetria primarily involving the right hand. Significant intermittent expressive aphasia. Psychiatric: Very pleasant and cooperative, occasionally anxious. DISCHARGE PLAN: The patient will be discharged to [facility] for endoscopic ultrasound. The patient is currently on prednisone 40 mg p.o. daily for his alcoholic hepatitis, which should be continued for 6 weeks from when it was started on 09/05/18. The patient will be continued on his lactulose and Xifaxan for a goal of 3 to 4 loose bowel movements daily and a clinical resolution of his hepatic encephalopathy, which has currently been achieved. The patient should engage in physical therapy and occupational therapy. The patient was accepted to the physical/medical rehabilitation unit at [facility] and if deemed appropriate at discharge from [facility], should be transferred back there pending insurance authorization. The patient is significantly anxious. The patient will be continued on Ativan at this time twice daily as needed. The patient was also started on trazodone. Long-term non-benzodiazepine and antianxiety medication should be considered in the future when the patient's clinical status has improved. The patient should follow up in the future with Gastroenterology and possibly Oncology pending the results of his endoscopic ultrasound. The patient was recently started on hydrochlorothiazide. The patient should have his electrolytes checked. For worsening ascites, the patient should likely be started on Lasix and spironolactone; however, the patient is currently asymptomatic from probable mild ascites. The patient should follow up with his primary care provider for general medical management after his discharge from [facility] and possibly [facility]. The patient should continue to engage in activities as tolerated and have a heart-healthy diet without caffeine. The patient should abstain entirely from alcohol. TIME SPENT: Approximately 120 minutes was spent on the discharge of this patient, 1 hour of which was spent [id number] with the patient and his fiancee discussing treatment plan as well as coordinating care with the [facility] and providing education. [facility] [id number]/[facility] #: [id number] [place]
[2018-09-20 17:11] LABS: Hemochromatosis Specimen WB Whole Blood
== END 2018-09-19 16:53 | disposition short-term general hospital (02) | DRG 280 ==
LOC: ED 11:01 → MED 22:38 → ICU 09-09 12:09 → MED 09-12 12:11 → MEDTELE 09-12 13:23
PROVIDERS: ADMIT Pediatrics; ATTEND Internal Medicine
DX: K70.10 Alcoholic hepatitis without ascites (principal); I61.8 Other nontraumatic intracerebral hemorrhage; G93.6 Cerebral edema; A41.9 Sepsis, unspecified organism; K83.1 Obstruction of bile duct; K72.00 Acute and subacute hepatic failure without coma; E44.0 Moderate protein-calorie malnutrition; E87.0 Hyperosmolality and hypernatremia; R47.01 Aphasia; J98.11 Atelectasis; F10.239 Alcohol dependence with withdrawal, unspecified; I95.9 Hypotension, unspecified; K86.89 Other specified diseases of pancreas; K81.9 Cholecystitis, unspecified; E88.09 Other disorders of plasma-protein metabolism, not elsewhere classified; Y90.6 Blood alcohol level of 120-199 mg/100 ml; E83.119 Hemochromatosis, unspecified; G25.0 Essential tremor; I10 Essential (primary) hypertension; K52.9 Noninfective gastroenteritis and colitis, unspecified; K70.0 Alcoholic fatty liver; I70.90 Unspecified atherosclerosis; K57.90 Diverticulosis of intestine, part unspecified, without perforation or abscess without bleeding; N40.0 Benign prostatic hyperplasia without lower urinary tract symptoms; E80.6 Other disorders of bilirubin metabolism; E86.0 Dehydration; F41.9 Anxiety disorder, unspecified; G47.00 Insomnia, unspecified; E87.6 Hypokalemia; R50.9 Fever, unspecified; Z20.1 Contact with and (suspected) exposure to tuberculosis; W06.XXXA Fall from bed, initial encounter; Y92.230 Patient room in hospital as the place of occurrence of the external cause; Z88.1 Allergy status to other antibiotic agents; Z79.01 Long term (current) use of anticoagulants; Z79.1 Long term (current) use of non-steroidal anti-inflammatories (NSAID); Z79.899 Other long term (current) drug therapy; Z80.3 Family history of malignant neoplasm of breast; Z80.0 Family history of malignant neoplasm of digestive organs; Z84.89 Family history of other specified conditions
CPT/HCPCS: 36415; 36600; 70450; 70551; 70553; 71045; 71250; 74177; 74181; 74183; 76376; 76705; 80048; 80053; 80320; 81003; 81256; 82105; 82140; 82150; 82247; 82248; 82378; 82390; 82525; 82550; 82728; 82803; 83010; 83036; 83540; 83550; 83605; 83615; 83690; 83735; 83880; 84466; 84484; 85025; 85610; 85652; 85730; 86140; 86301; 86695; 86696; 86703; 86787; 87040; 87529; 90732; 93005; 93306; 99223; 99284; A9270-GY; A9579; G0480; G8978-GP-CL; G8979-GP-CI; G8987-GO-CM; G8988-GO-CI; J0360; J0692; J1100; J1644; J2060; J2920; J3411; J3475; J3480; J3490; J7512; Q9967

== ENCOUNTER 2018-11-02 13:27 | Emergency (ER) | payer BC ==
[2018-11-02] MEDS ORDERED: NS 0.9% 1000 ML** 1,000 ML IV ONE (14:16)
--- NOTE | 2018-11-02 14:24 | ED ---
Neurological HPI - HPI Summary HPI Summary: LORI MILLS CALLED AT 1411. Patient was seen by Dr. Almaraz at 1410. Patient went to CT at 1418. This patient is a 58 year old F presenting to ED accompanied by betito with a chief complaint of neurological deficit since earlier today. The patient went for a walk at around [id number] and thats when he was last seen normal. Then around 1230, the fianc called him and his speech was a bit slurred, slow, and he was crying. Then after she picked him up, he was leaning to the sides and he had an unsteady gait. He was crossing his legs over each other while walking as well. The patient had a brain bleed that was dx on September 09 and was at [facility] from September 05 to September 23 for pancreatitis. He is seeing Dr. Dick and he said to get him seen right away if there is anything unusual. The patient rates the pain 0/10 in severity. Symptoms aggravated by nothing. Symptoms alleviated by spontaneous resolution. Patient states he has not had any alcohol today. PMHx of HTN (he did have his meds today). - History of Current Complaint Chief Complaint: EDNeurologicalDeficit Stated Complaint: SWERVING WHEN WALKING/MOOD CHANGE/CONFUSION PER PT Time Seen by Provider: 11/02/18 14:00 Hx Obtained From: Patient, Family/[place] - accompanied by doug Onset/Duration: Sudden Onset, Started hours ago, Resolved Timing: Sudden Onset Current Severity: None Pain Intensity: 0 Pain Scale Used: 0-10 Numeric Character: Impaired Speech - slurred and slow speech, Other: - unsteady gait Aggravating: Nothing Alleviating: Spontanious Resolution Associated Signs and Symptoms: Positive: Nothing TPA Considered: No - Additional Pertinent History Primary Care Physician: [id number] - Allergy/Home Medications Allergies/Adverse Reactions: Allergies Allergy/AdvReac Type Severity Reaction Status Date / Time amoxicillin Allergy GI Upset Verified 11/02/18 13:54 Home Medications: Home Medications Folic Acid TAB* [Folvite TAB*] 800 mcg PO DAILY 11/02/18 [History Confirmed ] Labetalol TAB* [Trandate TAB*] 100 mg PO BID 11/02/18 [History Confirmed ] Lactulose* 45 ml PO BID 11/02/18 [History Confirmed 11/02/18] Primidone TAB(*) [Mysoline TAB(*)] 250 mg PO TID 11/02/18 [History Confirmed ] Propranolol HCl [Propranolol HCl ER] 120 mg PO QAM 11/02/18 [History Confirmed 11/02/18] Testosterone Cypionate (NF) 1 ml IM WEEKLY 11/02/18 [History Confirmed 11/02/18] amLODIPine TAB* [Norvasc 5 mg TAB*] 10 mg PO DAILY 11/02/18 [History Confirmed 11/02/18] PMH/Surg Hx/FS Hx/Imm Hx Endocrine/Hematology History: Denies: Hx Diabetes, Hx Thyroid Disease Cardiovascular History: Reports: Hx Hypertension - DOES TAKE MEDICATIONS Denies: Hx Pacemaker/ICD Respiratory History: Denies: Hx Asthma, Hx Chronic Obstructive Pulmonary Disease (COPD) GI History: Denies: Hx Ulcer History: Denies: Hx Renal Disease Sensory History: Reports: Hx Contacts or Glasses Denies: Hx Hearing Aid Opthamlomology History: Reports: Hx Contacts or Glasses Psychiatric History: Denies: Hx Panic Disorder - Surgical History Surgery Procedure, Year, and Place: [facility] SCAN OF PANCREAS AND LIVER (LAP); - Immunization History Date of Tetanus Vaccine: UTD Date of Influenza Vaccine: NO Infectious Disease History: No Infectious Disease History: Denies: Hx Hepatitis, Hx Human Immunodeficiency Virus (HIV), Traveled Outside the [place] in Last 30 Days - Family History Known Family History: Positive: Hypertension - Social History Alcohol Use: Daily Alcohol Amount: 1-2 beers per day Hx Substance Use: No Substance Use Type: Reports: None Hx Tobacco Use: No Smoking Status (MU): Former Smoker Review of Systems Negative: Fever, Chills Negative: Erythema Negative: Sore Throat Negative: Chest Pain Negative: Shortness Of Breath, Cough Negative: Abdominal Pain, Vomiting, Nausea Negative: dysuria, hematuria Negative: Myalgia, Edema Negative: Rash Neurological: Other - unsteady gait; denies dizziness Positive: Slurred Speech All Other Systems Reviewed And Are Negative: Yes Physical Exam - Summary Physical Exam Summary: Constitutional: Well-developed, Well-nourished, Alert. (-) Distressed Skin: Warm, Dry HENT: Normocephalic; Atraumatic Eyes: Conjunctiva normal Neck: Musculoskeletal ROM normal neck. (-) JVD, (-) Stridor, (-) Tracheal deviation Cardio: Rhythm regular, rate normal, Heart sounds normal; Intact distal pulses; The pedal pulses are 2+ and symmetric. Radial pulses are 2+ and symmetric. (-) Murmur Pulmonary/Chest wall: Effort normal. (-) Respiratory distress, (-) Wheezes, (-) Rales Abd: Soft. (-) Tenderness, (-) Distension, (-) Guarding, (-) Rebound Musculoskeletal: (-) Edema Lymph: (-) Cervical adenopathy Neuro: Alert, Oriented x3, Strength normal, Cranial nerves II-XII are grossly intact. (-) Dysmetria, (-) Nystagmus, (-) Ataxia by finger to nose testing, (-) Sensory deficit. Speech is fluent and clear. No ataxia. Reports decreased tolerance to alcohol. Psych: Mood and affect Normal GCS: 15 Triage Information Reviewed: Yes Vital Signs On Initial Exam: Initial Vitals Temp Pulse Resp BP Pulse Ox 98.4 F 79 16 114/77 98 11/02/18 13:45 11/02/18 13:45 11/02/18 13:45 11/02/18 13:45 11/02/18 13:45 Vital Signs Reviewed: Yes Diagnostics - Vital Signs Vital Signs Temp Pulse Resp BP Pulse Ox 11/02/18 13:45 98.4 F 79 16 114/77 98 - Laboratory Result Diagrams: 11/02/18 14:26 11/02/18 14:26 Lab Statement: Any lab studies that have been ordered have been reviewed, and results considered in the medical decision making process. - Radiology CXR Radiology Interpretation Completed By: Radiologist Summary of Radiographic Findings: No evidence for acute intrathoracic disease. Dr. Almaraz has reviewed this radiology report. - CT Brain CT CT Interpretation Completed By: Radiologist Summary of CT Findings: PERSISTENT BUT IMPROVED LEFT BASAL GANGLIA INTRAPARENCHYMAL HEMATOMA. Dr. Almaraz has reviewed this radiology report. - EKG 1522 Cardiac Rate: NL - 70 BPM EKG Rhythm: Sinus Rhythm Summary of EKG Findings: No STEMI Re-Evaluation - Re-Evaluation First Eval Re-Evaluation Time: 16:17 Comment: Discussed results with the patient and plan for discharge. Patient understands and agrees with this plan. Second Eval Re-Evaluation Time: 16:27 Comment: Spoke with patient's about outpatient follow up addiction services. Course/Dx - Course Assessment/Plan: LORI MILLS CALLED AT 1411. Patient was seen by Dr. Almaraz at 1410. Patient went to CT at 1418. This patient is a 58 year old F presenting to ED accompanied by betito with a chief complaint of neurological deficit since earlier today. Last seen well at [id number]. Patient's neuro deficit is described as slurred speech and unsteady gait. In the ED course, the patient was given fluids. Consulted Dr. Travis at 1419 who is very familiar with patient. The patient is not a TPA candidate due to recent bleed which was dx September 09. Radiologist called in at 1423 to say the Brain CT was negative. Dr. Travis came to see the patient at 1429. Consulted Dr. Travis in the ED at 1450 and he says to wait for the alcohol level and if it was positive, then he did not think his sx were due to an acute neurological problem. EKG reveals NSR at 70 BPM and no STEMI. Brain CT reveals PERSISTENT BUT IMPROVED LEFT BASAL GANGLIA INTRAPARENCHYMAL HEMATOMA. CXR reveals no evidence for acute intrathoracic disease. Serum Alcohol is 206H. The patient will be discharged with dx of alcohol intoxication. Patient understands and is agreeable with this plan. Patient was also given instructions to follow up with [facility]. - Differential Dx Differential Diagnoses Neuro: Positive: Other - alcohol intoxication and alcohol dependence - Diagnoses Provider Diagnoses: Alcohol intoxication, Alcohol dependence - Physician Notifications Discussed Care Of Patient With: Travon Travis Time Discussed With Above Provider: 14:19 Instructed by Provider To: Other - Consulted Dr. Travis at 1419 who is very familiar with patient. The patient is not a TPA candidate due to recent bleed which was dx September 09. Consulted Dr. Travis in the ED at 1450 and he says to wait for the alcohol level and if it was positive, then he did not think his sx were due to an acute neurological problem. Discharge - Sign-Out/Discharge Documenting (check all that apply): Patient Departure - discharge Patient Received Moderate/Deep Sedation with Procedure: No - Discharge Plan Condition: Stable Disposition: HOME Patient Education Materials: Alcohol Intoxication (ED), Alcohol Dependence (ED) Referrals: Luc Hartley MD [Primary Care Provider] - (Follow up in 2-3 days.) [facility] [place] [Outside] (Follow up in 2-3 days.) Additional Instructions: RETURN TO THE EMERGENCY DEPARTMENT FOR CHANGING OR WORSENING SYMPTOMS - Attestation Statements Document Initiated by Scribe: Yes Documenting Scribe: Karthik Camp Provider For Whom Scribe is Documenting (Include Credential): Dheeraj Almaraz MD Scribe Attestation: IKarthik, scribed for Dheeraj Almaraz MD on 11/02/18 at 1636. Status of Scribe Document: Ready
[2018-11-02 14:40] LABS: ABS Basophils 0.1 10^3/ul (0-0.2); ABS Eosinophils 0 10^3/ul (0-0.6); ABS Lymphocytes 0.9 10^3/ul (1.0-4.8); ABS Monocytes 0.3 10^3/ul (0-0.8); ABS Neutrophils 3.7 10^3/ul (1.5-7.7); ABS Nucleated RBC 0 10^3/ul; Eosinophil % 0.7 %; Hematocrit 45 % (36-46); Hemoglobin 15.2 g/dL (14.0-18.0); Lymphocyte % 16.9 %; Mean Corpuscular HGB Conc 34 g/dL (31-36); Mean Corpuscular Hemoglobin 34 pg (27-31); Mean Corpuscular Volume 100 fL (80-94); Mean Platelet Volume 8.3 fL (7.4-10.4); Nucleated Red Blood Cells % 0.1; Platelet Count 247 10^3/uL (150-450); Red Blood Count 4.46 10^6 /uL (4.18-5.48); Red Cell Distribution Width 14 % (10.5-15); White Blood Count 5.1 10^3/uL (3.5-10.8)
[2018-11-02 14:48] LABS: Activated Partial Thrombo Time 26.9 seconds (26.0-36.3); INR 0.86 (0.77-1.02)
[2018-11-02 14:59] LABS: Albumin 3.7 g/dL (3.2-5.2); Albumin/Globulin Ratio 1.7 (1-3); BUN/Creatinine Ratio 11.1 (8-20); Calcium 8.3 mg/dL (8.6-10.3); EGFR African American 189.1 (>60); EGFR Non-African American 156.3 (>60); Globulin 2.2 g/dL (2-4); Potassium 4.5 mmol/L (3.5-5.0); Total Protein 5.9 g/dL (6.4-8.9)
[2018-11-02 15:01] LABS: Troponin I 0.01 ng/mL (<0.04)
[2018-11-02 16:41] VITALS: BP 140/95
--- NOTE | 2018-11-02 18:16 | CONS ---
CC: Dr. Hartley* CONSULTATION REPORT: DATE OF CONSULT: 11/02/18 PRIMARY CARE PROVIDER: Dr. Hartley. LOCATION: Consultation done in the ER. REASON FOR CONSULTATION: History of hemorrhagic stroke with worsening symptoms. HISTORY OF PRESENT ILLNESS: Mr. 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 At that time, he came in with elevated LFTs. He came in to the hospital with what appeared to be some liver failure. He was admitted with hepatic encephalopathy, elevated ammonia, became confused during his hospitalization. Brain CT was done on 09/09/18, which showed intraparenchymal hematoma of the left basal ganglia with minimal vasogenic edema measuring up to 4.2 cm in size without shift, was evaluated, and found to be nonsurgical candidate. MRI done on 09/09/18 showed re- demonstration of approximately 5.3 x 3.5 x 3.5 cm intraparenchymal hemorrhage involving the posterior left basal ganglia. Minimal 0.2 cm left to right shunt. He has had an appointment with Dr. Dick, was noted to have some mild right-sided weakness, but has generally recovered from the stroke. He is currently in physical therapy. He did have repeat imaging done on 10/24/18. Repeat brain MRI showed persistent, but improving left cerebral intraparenchymal hematoma, decreasing vasogenic edema, no shift. He had a head MRI as well, which showed no aneurysm, vascular malformation, occlusion, or stenosis of visualized intracranial circulation and he had a neck MRA showing no intracranial carotid artery stenosis. At the time of his previous hospitalization, he was eventually transferred to an outside hospital for history of pancreatic cyst/mass, concern for cancer. He has undergone alcohol detox and has been clean until last when he apparent drank some. He states that his last drink was . This morning, he decided to walk up to the [employer] to "get some sneakers." His called him at one point and found that he seemed to be confused. He was found on a park bench with his head bowed and he was having difficulty walking. She states that he was staggering and somewhat confused. He did not appear to have any focal weakness, but felt unsteady. He was brought to the ER. I saw him. Stuart willoughby was called. NIH stroke scale at the time that I saw him was 0. He had a repeat CT scan, which showed persistent, but improved left basal ganglia intraparenchymal hematoma. He notes that he has been in physical therapy since he was out of the hospital and that he was told that he had good days and bad days. He has had a very slow progression in physical therapy, which has been difficult for him to accept. He does feel like his symptoms are improving though. He denies any focal weakness in the right side or the left side. He again denies any alcohol use within the last 72 hours. He feels like his speech is at baseline. He feels like his symptoms currently are at baseline. He did become very tearful during my examination. PAST MEDICAL HISTORY: As noted above. MEDICATIONS: His medications at home include: 1. Propranolol 120 mg q.a.m. 2. Testosterone 1 mL IM weekly. 3. Lactulose. 4. Prednisone 40 mg daily. 5. Rifaximin. 6. Folic acid. 7. Amlodipine. 8. Labetalol. 9. Primidone. ALLERGIES: AMOXICILLIN. FAMILY HISTORY: Noncontributory. SOCIAL HISTORY: Heavy alcohol use. Denies any tobacco or drug use. Lives with his fiancee. He is retired. REVIEW OF SYSTEMS: A 14-organ systems as noted above, otherwise negative. PHYSICAL EXAM: Vital signs on admission: Blood pressure 112/69; temperature, afebrile, 98.4; heart rate of 75; respiratory rate of 13; O2 sat of 97%. In general, he is a well-nourished, although ill-appearing gentleman sitting in his hospital bed. He is pleasant, well dressed, well groomed. HEENT: He is normocephalic, atraumatic. Sclerae are dirty, slightly icteric. Mucous membranes are slightly dry. Oropharynx is clear. Nares patent. Neck is supple. No thyromegaly. No carotid bruits. No meningismus. Chest: Clear to auscultation bilaterally. Cardiovascular is regular rate and rhythm. Abdomen is nontender, nondistended. Extremities: No clubbing, cyanosis, or edema. Neurologic Exam: He is awake, alert. He is oriented x3. Currently, speech is fluent. There is no dysarthria. Repetition is intact. Cranial Nerves: Pupils are equally round and reactive to light and accommodation. Extraocular muscles are intact. Visual nails are full to confrontation. There is no nystagmus, no ptosis, no diplopia. He has a right lower facial droop, which he states is chronic. Facial sensation is intact. Hearing is intact bilaterally. Palate raises symmetrically. Tongue is midline. Motor Exam: He is spontaneously moving all extremities, antigravity 5/5 throughout. There is no drift apparent on the upper or lower extremities. He states that his sensation is intact to light touch and pinprick throughout. There are no focal deficits. DTRs are 1+ and symmetric in the upper and lower extremities with equivocal Babinski's. He does have 1 to 2 beats of asterixis with his hands extended. He also has a [id number] tremor bilaterally. No resting tremor is appreciated. The tremor is mild in nature. His gait is steady, slightly wide based, but good arm swing. He feels steady on his feet. No sway. DIAGNOSTIC STUDIES/LAB DATA: Lab results include CBC with diff with an MCV of 100, MCH is 34. INR of 0.86, PTT of 26.9. Chemistry with a creatinine of 0.54 , glucose of 106, calcium of 8.3. AST of 59, ALT of 34, alk phos of 114. Ammonia is pending. Troponin 0.01. His serum alcohol level is 206. Imaging as noted above in the HPI. ASSESSMENT AND PLAN: Mr. Winchester is a 58-year-old gentleman who has a long history of alcohol use, alcoholic transaminitis, pancreatic cyst, who was recently hospitalized and transferred out for further workup of his pancreas. He has been out of the hospital for about a month. He states his last drink was last , although today on presentation he had an alcohol level of 206. This morning, he was found in a park, sitting on a bench after trying to walk to the [employer] from his home, which is about 3 or 4 blocks away. He was crying and felt like he was unsteady on his feet. His fiancee felt that he was staggering. When I saw him in the ER, his NIH was 0 and he seemed to be back to his baseline. His CT scan of the head showed no worsening. At this point, I see no evidence of any new symptoms that would suggest a new stroke. I suspect that he is having somewhat masking related to his alcohol use and I suspect that he is intoxicated, likely leading to the ataxia. He described currently he is back to his baseline. He does not feel unsteady on his feet and he feels strong. I think at this point that the chance that he has had any new stroke is very low. I do think it is okay for him to be discharged home, assuming he is safe and has supervision. He is not currently driving. His fiancee will be with him. I told her to return to the hospital immediately should he have any new symptoms or she has any new concerns. He knows that he should not be drinking. Discharge home of course is predicated on a clearance by the ER docs regarding his other medical issues, but from my standpoint, I would not change any management. He does not need to be on any blood thinners or antiplatelets due to his recent hemorrhagic stroke. He has a followup with Dr. Dick in the next several months. He is to call the office with any new symptoms. Thank you for the opportunity to participate in the care of this very interesting patient. [id number]/[facility] #: [id number] [place]
== END 2018-11-02 16:41 | disposition home or self-care (01) ==
LOC: ED 13:27
DX: F10.229 Alcohol dependence with intoxication, unspecified (principal); I10 Essential (primary) hypertension; Z88.0 Allergy status to penicillin; Z79.01 Long term (current) use of anticoagulants; Z79.890 Hormone replacement therapy; Z87.891 Personal history of nicotine dependence
CPT/HCPCS: 36415; 70450; 71045; 80053; 80061; 80320; 82140; 83605; 84484; 85025; 85610; 85730; 93005; 96360; 99283; G0480

== ENCOUNTER 2018-11-27 22:44 | Emergency (ER) | payer BC ==
--- OUTSIDE RECORDS SUMMARY | 2018-11-27 23:06 | XMS REPORT | Continuity of Care Document ---
:1960 External Reference #:[id number] Author Name Hamzah Foss, Address 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 Tobacco Use Start: Unknown Patient has never smoked Smoking Status Reviewed: 11/14/18 Patient has never smoked Allergies, Adverse Reactions, Alerts Date Description Reaction Status Severity Comments 03/28/2018 Amoxicillin Active Medications Medication Date Status Form Strength Qnty SIG Indications Ordering Provider Testosterone 00/00/ Active Solution 200mg/ml Unknown Cypionate 0000 Lactulose 00/ Active Solution 10GM/15ML 30 ML Unknown 0000 Daily Primidone 00/00/ Active Tablets 250mg Take 1 Unknown 0000 Tablet By Mouth Three Times Daily Propranolol 00/00/ Active Caps ER 24HR 120mg Take 1 Unknown HCL ER 0000 Capsule By Mouth Every Day Xifaxan 00/ Active Tablets 550mg Take 1 Unknown 0000 Tablet By Mouth Two Times Daily Amlodipine 00/ Active Tablets 10mg Take 1 Unknown Besylate 0000 Tablet By Mouth Every Day Labetalol HCL 00/ Active Tablets 100mg 1 by Unknown 0000 mouth twice a day Prednisone 10/11/ Hx Tablets 10mg 42tabs 3 tablets K70.10 Hamzah 2018 - by mouth Pipo, 11/14/ daily x 1 DO 2018 week, then 2 tablets by mouth daily x 1 week, then 1 tablet by mouth daily x 1 week. Irbesartan-Hyd / Hx Tablets 150-12.5mg Niziol,Blanche rochlorothiazi Sylvie jaffe MD de 2018 Alprazolam / Hx Tablets 0.25mg Niziol,Blanche jaffe MD 2018 Cialis / Hx Tablets 5mg Niziol,Blanche jaffe MD 2018 Gabapentin 00/ Hx Capsules 300mg Danitzaziol,Blanche jaffe MD 2018 Propranolol /00/ Hx Caps ER 24HR 60mg Take 2 Unknown HCL ER 0000 - Capsules 09/05/ By Mouth 2018 Every Day Flovent HFA / Hx Aerosol 220mcg/Act Niziol,Blanche jaffe MD 2018 Alrex / Hx Suspension 0.2% Unknown 0000 - 2018 Amlodipine /00/ Hx Tablets 10mg Blanche Hartleyylate Sylvie jaffe MD 2018 Mysoline /00/ Hx Tablets 50mg 1/4 Unknown 0000 - Tablet 10/10/ Daily 2018 Prednisone /00/ Hx Tablets 20mg Take 2 Unknown 0000 - Tablets 10/11/ By Mouth 2018 Every Day Immunizations Description No Information Available Vital Signs Date Vital Result Comment 11/14/2018 9:14am Height 67 inches 5'7" Weight 150.00 lb BMI (Body Mass Index) 23.5 kg/m2 10/11/2018 2:44pm Height 67 inches 5'7" Weight 147.00 lb @ home no clothes or shoes 137 BP Systolic 119 mmHg BP Diastolic 79 mmHg Heart Rate 79 /min BMI (Body Mass Index) 23.0 kg/m2 09/05/2018 9:13am Height 67 inches 5'7" Weight 158.00 lb BP Systolic 106 mmHg BP Diastolic 68 mmHg Heart Rate 91 /min BMI (Body Mass Index) 24.7 kg/m2 03/28/2018 8:55am Height 67 inches 5'7" Weight 170.00 lb BP Systolic 129 mmHg BP Diastolic 60 mmHg Heart Rate 74 /min BMI (Body Mass Index) 26.6 kg/m2 Results Test Date Facility Test Result H/L Range Note CBC W/Auto 11/14/2018 [facility] White Blood 5.9 3/UL 4.8-10.8 Differential [address] [facility] Count Ser (!) [place] [address] Auto CNT [phone] RBC Red Blood Count 4.69 X106/UL 4.20-6.20 Hemoglobin Blood 15.4 g/dL 12.0-18.0 Hematocrit 46.9 % 35-52 MCV (Corpuscular Volume) 99.9 FL High 79-97 MCH (Corpuscular Hemoglobin) 32.9 pg High 27-31 MCHC (Corpuscular Hemog Conc) 32.9 g/dL 32.0-36.0 RDW 14.2 % 10.5-15.0 Platelet Count Blood Auto CNT 222 X103/UL 150-450 MPV 6.8 FL Low 7.4-10.4 Lymph% 27.5 % 20.0-45.0 Walker% 9.0 % 1.0-9.0 Neutrophil % 63.5 % 38.0-83.0 Absolute Lymphocytes 1.6 X103/UL 1.0-4.8 Absolute Monocytes 0.5 X103/UL 0.0-0.8 Absolute Neutrophils 3.7 X103/UL 1.5-7.7 Laboratory test finding 11/14/2018 [facility] Inr(!) 0.9 [address] [place] [address] [phone] Ferritin Ser/Plas Mass/Vol(!) 123.4 ng/dL 24-250 Comp Metabolic Panel 10/11/2018 [facility] Sodium 136 mmol/L N 135-145 Potassium 4.6 mmol/L N 3.5-5.0 Chloride 100 mmol/L Low 101-111 Co2 Carbon Dioxide 30 mmol/L N 22-32 Anion Gap 6 mmol/L N 2-11 Calcium 8.5 mg/dL Low 8.6-10.3 Albumin 3.5 g/dL N 3.2-5.2 Total Bilirubin 2.40 mg/dL High 0.2-1.0 Glucose 74 mg/dL N 70-100 Blood Urea Nitrogen 9 mg/dL N 6-24 Creatinine 0.54 mg/dL Low 0.67-1.17 BUN/Creatinine Ratio 16.7 N 8-20 Total Protein 5.6 g/dL Low 6.4-8.9 Globulin 2.1 g/dL N 2-4 Albumin/Globulin Ratio 1.7 N 1-3 Alkaline Phosphatase 152 U/L High 34-104 Alt 53 U/L High 7-52 Ast 30 U/L N 13-39 Egfr Non- 156.3 >60 Egfr 189.1 >60 1 Iron & Iron Binding Capacity 10/11/2018 [facility] Iron 76 g/dL N 50-212 Unsaturated Iron Binding < 205 g/dL Total Iron Binding Capacity 220 g/dL Low 250-450 Transferrin 157 mg/dL Low 203-362 % Iron Saturation 35 % N 15-55 CBC W/Auto 10/11/2018 [facility] White 5.7 3/UL 4.8- 10.8 Differential(!) [address] [facility] [place] [address] Count Ser [phone] Auto CNT RBC Red Blood Count 3.74 X106/UL Low 4.20-6.20 Hemoglobin Blood 13.3 g/dL 12.0-18.0 Hematocrit 39.9 % 35-52 MCV (Corpuscular Volume) 106.7 FL High 79-97 MCH (Corpuscular Hemoglobin) 35.7 pg High 27-31 MCHC (Corpuscular Hemog Conc) 33.4 g/dL 32.0-36.0 RDW 14.1 % 10.5-15.0 Platelet Count Blood Auto CNT 226 X103/UL 150-450 MPV 6.8 FL Low 7.4-10.4 Lymph% 29.5 % 20.0-45.0 Walker% 6.1 % 1.0-9.0 Neutrophil % 64.4 % 38.0-83.0 Absolute Lymphocytes 1.7 X103/UL 1.0-4.8 Absolute Monocytes 0.3 X103/UL 0.0-0.8 Absolute Neutrophils 3.7 X103/UL 1.5-7.7 Laboratory test 10/11/2018 [facility] Ferritin 262.5 High 24-250 finding [address] [facility] Ser/Plas ng/[place] [address] Mass/Vol(!) [phone] Inr(!) 0.9 CMP(!) 09/19/2018 [facility] Sodium(!) <pending> Potassium(!) <pending> Chloride Serum/Plasma(!) <pending> Carbon Dioxide Ser/Plasm(!) <pending> BUN - Urea Nitrogen(!) <pending> Calcium Ser/Plasma Mass/Vol(!) <pending> Creatinine Serum Mass/Vol(!) <pending> Glucose Serum(!) <pending> BUN/Creatinine Ratio(!) <pending> Albumin Serum/Plasma(!) <pending> Alkaline Phosphatase(!) <pending> Bilirubin Total Mass/Vol(!) <pending> Ast - Sgot <pending> Alt - SGPT <pending> Protein Total <pending> CBC W/Auto 09/19/2018 [facility] White Blood <pending> Differential(!) Count Ser Auto CNT RBC Red Blood Count <pending> Hemoglobin Blood <pending> Hematocrit <pending> MCV (Corpuscular Volume) <pending> MCH (Corpuscular Hemoglobin) <pending> MCHC (Corpuscular Hemog Conc) <pending> RDW <pending> Platelet Count Blood Auto CNT <pending> MPV <pending> Lymph% <pending> Walker% <pending> Neutrophil % <pending> Absolute Lymphocytes <pending> Absolute Monocytes <pending> Absolute Neutrophils <pending> CMP(!) 09/18/2018 [facility] Sodium(!) <pending> Potassium(!) <pending> Chloride Serum/Plasma(!) <pending> Carbon Dioxide Ser/Plasm(!) <pending> BUN - Urea Nitrogen(!) <pending> Calcium Ser/Plasma Mass/Vol(!) <pending> Creatinine Serum Mass/Vol(!) <pending> Glucose Serum(!) <pending> BUN/Creatinine Ratio(!) <pending> Albumin Serum/Plasma(!) <pending> Alkaline Phosphatase(!) <pending> Bilirubin Total Mass/Vol(!) <pending> Ast - Sgot <pending> Alt - SGPT <pending> Protein Total <pending> CBC W/Auto 09/18/2018 [facility] White Blood <pending> Differential(!) Count Ser Auto CNT RBC Red Blood Count <pending> Hemoglobin Blood <pending> Hematocrit <pending> MCV (Corpuscular Volume) <pending> MCH (Corpuscular Hemoglobin) <pending> MCHC (Corpuscular Hemog Conc) <pending> RDW <pending> Platelet Count Blood Auto CNT <pending> MPV <pending> Lymph% <pending> Walker% <pending> Neutrophil % <pending> Absolute Lymphocytes <pending> Absolute Monocytes <pending> Absolute Neutrophils <pending> CBC W/Auto 09/17/2018 [facility] White Blood <pending> Differential(!) Count Ser Auto CNT RBC Red Blood Count <pending> Hemoglobin Blood <pending> Hematocrit <pending> MCV (Corpuscular Volume) <pending> MCH (Corpuscular Hemoglobin) <pending> MCHC (Corpuscular Hemog Conc) <pending> RDW <pending> Platelet Count Blood Auto CNT <pending> MPV <pending> Lymph% <pending> Walker% <pending> Neutrophil % <pending> Absolute Lymphocytes <pending> Absolute Monocytes <pending> Absolute Neutrophils <pending> CMP(!) 09/17/2018 [facility] Sodium(!) <pending> Potassium(!) <pending> Chloride Serum/Plasma(!) <pending> Carbon Dioxide Ser/Plasm(!) <pending> BUN - Urea Nitrogen(!) <pending> Calcium Ser/Plasma Mass/Vol(!) <pending> Creatinine Serum Mass/Vol(!) <pending> Glucose Serum(!) <pending> BUN/Creatinine Ratio(!) <pending> Albumin Serum/Plasma(!) <pending> Alkaline Phosphatase(!) <pending> Bilirubin Total Mass/Vol(!) <pending> Ast - Sgot <pending> Alt - SGPT <pending> Protein Total <pending> Xray 09/15/2018 [facility] Radiology MRI Abdomen W/Wo <pending> Xray 09/09/2018 [facility] Radiology CT Chest W/O <pending> Xray 09/09/2018 [facility] [place] Radiology CT, Abd & Pelvis <pending> W/ Contrast Xray 09/06/2018 [facility] [place] Radiology MRI Cholangiogram <pending> (MRCP) Laboratory test 09/05/2018 [facility] Ferritin Ser/Plas <pending> finding Mass/Vol(!) Alcohol 09/05/2018 [facility] Z#Other <pending> Observations Laboratory test 03/29/2018 [facility] [place] [place] Fecal Lactoferrin SEE RESULT 2 finding (Stool WBC) BELOW Stool Occult 03/29/2018 [facility] [place] Stool Occult SEE RESULT 3 Blood Diag Blood, Diag BELOW Liver Function 03/28/2018 [facility] Albumin 4.0 g/dL 3.5- Panel(!) [facility] [facility] Serum/Plasma(!) 5.2 [place] [address] [phone] Alkaline Phosphatase(!) 75 U/L 39-117 Bilirubin Direct [...] Auto CNT <pending> MPV <pending> Lymph% <pending> Walker% <pending> Neutrophil % <pending> Absolute Lymphocytes <pending> Absolute Monocytes <pending> Absolute Neutrophils <pending> Laboratory test 06/22/2017 [facility] BUN/Creatinine <pending> finding Ratio(!) 1 Because ethnic data is not always readily available, this report includes an eGFR for both -Americans and non- Americans. The National Kidney Disease Education Program (NKDEP) does not endorse the use of the MDRD equation for patients that are not between the ages of 18 and 70, are , have extremes of body size, muscle mass, or nutritional status, or are non- or non-. According to the National Kidney Foundation, irrespective of diagnosis, the stage of the disease is based on the level of kidney function: Stage Description GFR(mL/min/1.73 m(2)) 1 Kidney damage with normal or decreased GFR 90 2 Kidney damage with mild decrease in GFR 60-89 3 Moderate decrease in GFR 30-59 4 Severe decrease in GFR 15-29 5 Kidney failure <15 (or dialysis) 2 SEE RESULT BELOW Name: SRUTHIBRAYAN : [address]: Kelsie SOLIS Acct: [id number] Unit: [id number] AGE: 57 Location: [facility] Re03/29/18 SEX: M Status: REG REF SPEC: [id number] GIRMA: 03/29/[address]: Kelsie SOLIS REQ: [id number] RECD: 03/29/18 STATUS: RES _ SOURCE: STOOL SPDESC: ORDERED: Occult Bl, Diag, Fecal Lactoferr Procedure Result Reported Site Stool Specimen Description Final 03/29/18- 1311 ML Stool Color Brown Stool Form Nonformed Stool Consistency Soft Fecal Lactoferrin (Stool WBC) PENDING Stool Occult Blood (1) PENDING * ML - Main Lab . END OF REPORT DEPARTMENT OF PATHOLOGY, [address] [place] [address] Mejia Osborne M.D. Director [facility] # [id number] 3 SEE RESULT BELOW Name: BRAYAN NEGRO : [address]: Kelsie SOLIS Acct: [id number] Unit: [id number] AGE: 57 Location: [facility] Re03/29/18 SEX: M Status: REG REF SPEC: [id number] GIRMA: 03/29/[address]: Kelsie SOLIS REQ: [id number] RECD: 03/29/18 STATUS: COMP _ SOURCE: STOOL [...] . END OF REPORT DEPARTMENT OF PATHOLOGY, [address] [place] [address] Mejia Osobrne M.D. Director [facility] # [id number] Procedures Description No Information Available Encounters Type Date Location Provider Dx Diagnosis Office Visit 10/11/2018 [facility] Hamzah Foss, K70.10 Alcoholic 3:00p [facility] DO hepatitis without ascites R74.0 Nonspec elev of levels of transamns & lactic acid dehydrgnse K86.2 Cyst of pancreas R93.3 Abnormal findings on dx imaging of prt digestive tract F10.21 Alcohol dependence, in remission Z71.41 Alcohol abuse counseling and surveillance of alcoholic Office Visit 09/05/2018 [facility] Hamzah Foss, R17 Unspecified 9:30a [facility] DO jaundice R74.0 Nonspec elev of levels of transamns & lactic acid dehydrgnse R63.4 Abnormal weight loss F10.20 Alcohol dependence, uncomplicated Z71.41 Alcohol abuse counseling and surveillance of alcoholic Office Visit 03/28/2018 [facility] Kelsie Westfall R63.4 Abnormal 8:45a [facility] weight loss R63.0 Anorexia R11.2 Nausea with vomiting, unspecified R13.14 Dysphagia, pharyngoesophageal phase R19.4 Change in bowel habit Plan of Treatment 11/14/2018 - Hamzah Foss, DOK70.10 Alcoholic hepatitis without jfeiovzX85.2 Cyst of hgyymdriH31.0 Nonspecific elevation of levels of transaminase and lactic acid dehydrogenase [LDH]R93.3 Abnormal findings on diagnostic imaging of other parts of digestive tractComments:RISKS AND BENEFITS OF THE PROCEDURE WERE DISCUSSED WITH PATIENT.Z71.41 Alcohol abuse counseling and surveillance of alcoholic
--- OUTSIDE RECORDS SUMMARY | 2018-11-27 23:06 | XMS REPORT | Continuity of Care Document ---
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 Luc Hartley MD Primary Care Physician Unavailable Payers Date Identification Numbers Payment Provider Subscriber Policy Number: [id number] [facility] Employees Brayan Negro PayID: [id number] [address] [place] [address] Expires: 2018 Policy Number: [id number] Of [facility] Jany Drummondor PayID: [id number] [address] [address] [place] [address] Advance Directives Description No Information Available Problems [...] Patient has never smoked Smoking Status Reviewed: 10/11/18 Patient has never smoked Allergies, Adverse Reactions, Alerts Date Description Reaction Status Severity Comments 03/28/2018 Amoxicillin Active Medications Medication Date Status Form Strength Qnty SIG Indications Ordering Provider Prednisone 10/11/ Active Tablets 10mg 42tabs 3 tablets K70.10 Hamzah 2019 by mouth Pipo, daily x 1 DO week, then 2 tablets by mouth daily x 1 week, then 1 tablet by mouth daily x 1 week. Cialis / Active Tablets 5mg Niziol,Balnche jaffe MD Testosterone / Active Solution 200mg/ml Unknown Cypionate 0000 Lactulose / Active Solution 10GM/15ML 30 ML bid Unknown 0000 Primidone / Active Tablets 250mg Take 1 Unknown 0000 Tablet By Mouth Three Times Daily Propranolol / Active Caps ER 24HR 120mg Take 1 Unknown HCL ER 0000 Capsule By Mouth Every Day Xifaxan / Active Tablets 550mg Take 1 Unknown 0000 Tablet By Mouth Two Times Daily Amlodipine / Active Tablets 10mg Take 1 Unknown Besylate 0000 Tablet By Mouth Every Day Irbesartan-Hyd / Hx Tablets 150-12.5mg Nizidena,Blanche rochlorothiazi Sylvie jaffe MD de 2018 Alprazolam / Hx Tablets 0.25mg NiziolBlanche MD 2018 Gabapentin 00/ Hx Capsules 300mg Niziol,Blanche jaffe MD 2018 Propranolol / Hx Caps ER 24HR 60mg Take 2 Unknown HCL ER 0000 - Capsules 09/05/ By Mouth 2018 Every Day Flovent HFA / Hx Aerosol 220mcg/Act NiziolBlanche MD 2018 Alrex / Hx Suspension 0.2% Unknown 0000 - 2018 Amlodipine 00/ Hx Tablets 10mg Blanche Hartleyylate Sylvie jaffe MD 2018 Mysoline 00/ Hx Tablets 50mg 1/4 Unknown 0000 - Tablet 10/10/ Daily 2018 Prednisone 00/ Hx Tablets 20mg Take 2 Unknown 0000 - Tablets 10/11/ By Mouth 2019 Every Day Immunizations Description No Information Available Vital Signs Date Vital Result Comment 10/11/2018 2:44pm Height 67 inches 5'7" Weight [...] Date Facility Test Result H/L Range Note Comp Metabolic Panel 10/11/2018 [facility] Sodium 136 [...] 5.7 3/UL 4.8- 10.8 Differential(!) [address] [facility] [place] [address] Count Ser [phone] Auto CNT RBC Red Blood Count 3.74 X106/UL Low 4.20-6.20 Hemoglobin Blood 13.3 g/dL 12.0-18.0 Hematocrit 39.9 % 35-52 MCV (Corpuscular Volume) 106.7 FL High 79-97 MCH (Corpuscular Hemoglobin) 35.7 pg High 27-31 MCHC (Corpuscular Hemog Conc) 33.4 g/dL 32.0-36.0 RDW 14.1 % 10.5-15.0 Platelet Count Blood Auto CNT 226 X103/UL 150-450 MPV 6.8 FL Low 7.4-10.4 Lymph% 29.5 % 20.0-45.0 [place]% 6.1 % 1.0-9.0 Neutrophil % 64.4 % 38.0-83.0 Absolute Lymphocytes 1.7 X103/UL 1.0-4.8 Absolute Monocytes 0.3 X103/UL 0.0-0.8 Absolute Neutrophils 3.7 X103/UL 1.5-7.7 Laboratory test 10/11/2018 [facility] Ferritin 262.5 High 24-250 finding [address] [facility] Ser/Plas ng/[place] [address] Mass/Vol(!) [phone] Inr(!) 0.9 CMP(!) 09/19/2018 [facility] Sodium(!) [...] Auto CNT <pending> MPV <pending> Lymph% <pending> Denali% <pending> Neutrophil % <pending> Absolute Lymphocytes <pending> [...] Auto CNT <pending> MPV <pending> Lymph% <pending> Denali% <pending> Neutrophil % <pending> Absolute Lymphocytes <pending> [...] SGPT <pending> Protein Total <pending> CBC W/Auto 09/17/2018 [facility] White Blood <pending> Differential(!) Count Ser Auto CNT RBC Red Blood Count <pending> Hemoglobin Blood <pending> Hematocrit <pending> MCV (Corpuscular Volume) <pending> MCH (Corpuscular Hemoglobin) <pending> MCHC (Corpuscular Hemog Conc) <pending> RDW <pending> Platelet Count Blood Auto CNT <pending> MPV <pending> Lymph% <pending> Denali% <pending> Neutrophil % <pending> Absolute Lymphocytes <pending> Absolute Monocytes <pending> Absolute Neutrophils <pending> Xray 09/15/2018 [facility] [place] Radiology MRI Abdomen W/Wo <pending> Xray 09/09/2018 [facility] Radiology CT, Abd & Pelvis <pending> W/ Contrast Xray 09/09/2018 [facility] Radiology CT Chest W/O <pending> Xray 09/06/2018 [facility] Radiology MRI Cholangiogram <pending> (MRCP) Alcohol 09/05/2018 [facility] Z#Other <pending> Observations Laboratory test 09/05/2018 [facility] Ferritin Ser/Plas <pending> finding Mass/Vol(!) Stool Occult 03/29/2018 [facility] Stool Occult SEE RESULT 2 Blood Diag Blood, Diag BELOW Laboratory test 03/29/2018 [facility] Fecal Lactoferrin SEE RESULT 3 finding (Stool WBC) BELOW Liver Function 03/28/2018 [facility] Albumin 4.0 g/dL 3.5- Panel(!) [facility] Serum/Plasma(!) 5.2 [place] [address] [phone] Alkaline Phosphatase(!) 75 U/L 39-117 Bilirubin Direct [...] Auto CNT <pending> MPV <pending> Lymph% <pending> [place]% <pending> Neutrophil % <pending> Absolute Lymphocytes <pending> [...] (or dialysis) 2 SEE RESULT BELOW Name: BRAYAN NEGRO : [address]: Kelsie SOLIS Acct: [id number] Unit: [id number] AGE: 57 Location: [facility] Re03/29/18 SEX: M Status: REG REF SPEC: [id number] GIRMA: 03/29/[address]: Kelsie SOLIS REQ: [id number] RECD: 03/29/18 STATUS: COMP _ SOURCE: STOOL [...] . END OF REPORT DEPARTMENT OF PATHOLOGY, [address] [place] [address] Mejia Osborne M.D. Director [facility] # [id number] 3 SEE RESULT BELOW Name: SRUTHIBRAYAN OLIVA : [address]: Kelsie SOLIS Acct: [id number] Unit: [id number] AGE: 57 Location: [facility] Re03/29/18 SEX: M Status: REG REF SPEC: [id number] GIRMA: 03/29/[address]: Kelsie SOLIS REQ: [id number] RECD: 03/29/18 STATUS: RES _ SOURCE: STOOL SPDESC: ORDERED: Occult Bl, Diag, Fecal Lactoferr Procedure Result Reported Site Stool Specimen Description Final 03/29/18- 1311 ML Stool Color Brown Stool Form Nonformed Stool Consistency Soft Fecal Lactoferrin (Stool WBC) PENDING Stool Occult Blood (1) PENDING * ML - Main Lab . END OF REPORT DEPARTMENT OF PATHOLOGY, [address] [place] [address] Mejia Osborne M.D. Director [facility] # [id number] Procedures Description No Information Available Encounters Type Date Location Provider Dx Diagnosis Office Visit 10/11/2018 [facility]enter[facility] Hamzah Foss, K70.10 Alcoholic 3:00p [facility] DO hepatitis without ascites R74.0 Nonspec elev of levels of transamns & lactic acid dehydrgnse K86.2 Cyst of pancreas R93.3 Abnormal findings on dx imaging of prt digestive tract F10.21 Alcohol dependence, in remission Z71.41 Alcohol abuse counseling and surveillance of alcoholic Office Visit 09/05/2018 [facility] Hamzah Foss, R17 Unspecified 9:30a [facility] DO jaundice R74.0 Nonspec elev of levels of transamns & lactic acid dehydrgnse R63.4 Abnormal weight loss F10.20 Alcohol dependence, uncomplicated Z71.41 Alcohol abuse counseling and surveillance of alcoholic Office Visit 03/28/2018 [facility]enter[facility] Kelsie LRigo R63.4 Abnormal 8:45a [facility]SA Jones weight loss R63.0 Anorexia R11.2 Nausea with vomiting, unspecified R13.14 Dysphagia, pharyngoesophageal phase R19.4 Change in bowel habit Plan of Treatment Future Appointment(s):11/14/2018 9:30 am - Hamzah Foss DO at [facility]10/11/2018 - Hamzah Foss DOK70.10 Alcoholic hepatitis without ascitesNew Medication:Prednisone 10 mg - 3 tablets by mouth daily x 1 week, then 2 tablets by mouth daily x 1 week, then 1tablet by mouth daily x 1 week.R74.0 Nonspecific elevation of levels of transaminase and lactic acid dehydrogenase [LDH]K86.2 Cyst of ozggwdyrF29.3 Abnormal findings on diagnostic imaging of other parts of digestive sylwpI56.21 Alcohol dependence, in hsnpgtpqfV75.41 Alcohol abuse counseling and surveillance of alcoholic
--- OUTSIDE RECORDS SUMMARY | 2018-11-27 23:06 | XMS REPORT | Continuity of Care Document ---
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 Luc Hartley MD Primary Care Physician Unavailable Payers Date Identification Numbers Payment Provider Subscriber Policy Number: [id number] [facility] Employees Diomedes Negro PayID: [id number] [address] [place] [address] Expires: 2018 Policy Number: [id number] Of [facility] Jany Drummondor PayID: [id number] [address] [address] [place] [address] Advance Directives Description No Information Available Problems [...] Result H/L Range Note Comp Metabolic Panel 11/14/2018 [facility] Sodium 141 mmol/L N 135-145 Potassium 4.6 mmol/L N 3.5-5.0 Chloride 104 mmol/L N 101-111 Co2 Carbon Dioxide 31 mmol/L N 22-32 Anion Gap 6 mmol/L N 2-11 Glucose 95 mg/dL N 70-100 Blood Urea Nitrogen 7 mg/dL N 6-24 Creatinine 0.71 mg/dL N 0.67-1.17 BUN/Creatinine Ratio 9.9 N 8-20 Calcium 8.9 mg/dL N 8.6-10.3 Total Protein 5.9 g/dL Low 6.4-8.9 Albumin 3.7 g/dL N 3.2-5.2 Globulin 2.2 g/dL N 2-4 Albumin/Globulin Ratio 1.7 N 1-3 Total Bilirubin 0.90 mg/dL N 0.2-1.0 Alkaline Phosphatase 93 U/L N 34-104 Alt 24 U/L N 7-52 Ast 42 U/L High 13-39 Egfr Non- 114.0 >60 Egfr 137.9 >60 1 Iron & Iron Binding Capacity 11/14/2018 [facility] Iron 171 g/dL N 50-212 Unsaturated Iron Binding 113 g/dL Total Iron Binding Capacity 284 g/dL N 250-450 Transferrin 203 mg/dL N 203-362 % Iron Saturation 60 % High 15-55 CBC W/Auto 11/14/2018 [facility] White 5.9 3/UL 4.8- 10.8 Differential(!) [address] [facility] [place] [address] Count Ser [phone] Auto CNT RBC Red Blood Count 4.69 X106/UL 4.20-6.20 Hemoglobin Blood 15.4 g/dL 12.0-18.0 Hematocrit 46.9 % 35-52 MCV (Corpuscular Volume) 99.9 FL High 79-97 MCH (Corpuscular Hemoglobin) 32.9 pg High 27-31 MCHC (Corpuscular Hemog Conc) 32.9 g/dL 32.0-36.0 RDW 14.2 % 10.5-15.0 Platelet Count Blood Auto CNT 222 X103/UL 150-450 MPV 6.8 FL Low 7.4-10.4 Lymph% 27.5 % 20.0-45.0 Fentress% 9.0 % 1.0-9.0 Neutrophil % 63.5 % 38.0-83.0 Absolute Lymphocytes 1.6 X103/UL 1.0-4.8 Absolute Monocytes 0.5 X103/UL 0.0-0.8 Absolute Neutrophils 3.7 X103/UL 1.5-7.7 Laboratory test finding 11/14/2018 [facility] Inr(!) 0.9 [address] [place] [address] [phone] Ferritin Ser/Plas Mass/Vol(!) 123.4 ng/dL 24-250 Comp [...] Egfr Non- 156.3 >60 Egfr 189.1 >60 2 Iron & Iron Binding Capacity 10/11/2018 [facility] Iron 76 g/dL N 50-212 Unsaturated Iron Binding < 205 g/dL Total Iron Binding Capacity 220 g/dL Low 250-450 Transferrin 157 mg/dL Low 203-362 % Iron Saturation 35 % N 15-55 CBC W/Auto 10/11/2018 [facility] White 5.7 3/UL 4.8- 10.8 Differential(!) [address] [facility] [place] [address] Count Ser [phone] Auto CNT RBC Red Blood Count 3.74 X106/UL Low 4.20-6.20 Hemoglobin Blood 13.3 g/dL 12.0-18.0 Hematocrit 39.9 % 35-52 MCV (Corpuscular Volume) 106.7 FL High 79-97 MCH (Corpuscular Hemoglobin) 35.7 pg High 27-31 MCHC (Corpuscular Hemog Conc) 33.4 g/dL 32.0-36.0 RDW 14.1 % 10.5-15.0 Platelet Count Blood Auto CNT 226 X103/UL 150-450 MPV 6.8 FL Low 7.4-10.4 Lymph% 29.5 % 20.0-45.0 Fentress% 6.1 % 1.0-9.0 Neutrophil % 64.4 % 38.0-83.0 Absolute Lymphocytes 1.7 X103/UL 1.0-4.8 Absolute Monocytes 0.3 X103/UL 0.0-0.8 Absolute Neutrophils 3.7 X103/UL 1.5-7.7 Laboratory test 10/11/2018 [facility] Ferritin 262.5 High 24-250 finding [address] [facility] Ser/Plas ng/[place] [address] Mass/Vol(!) [phone] Inr(!) 0.9 CMP(!) 09/19/2018 [facility] Sodium(!) [...] Auto CNT <pending> MPV <pending> Lymph% <pending> Fentress% <pending> Neutrophil % <pending> Absolute Lymphocytes <pending> [...] Auto CNT <pending> MPV <pending> Lymph% <pending> Fentress% <pending> Neutrophil % <pending> Absolute Lymphocytes <pending> Absolute Monocytes <pending> Absolute Neutrophils <pending> CBC W/Auto 09/17/2018 [facility] White Blood <pending> Differential(!) Count Ser Auto CNT RBC Red Blood Count <pending> Hemoglobin Blood <pending> Hematocrit <pending> MCV (Corpuscular Volume) <pending> MCH (Corpuscular Hemoglobin) <pending> MCHC (Corpuscular Hemog Conc) <pending> RDW <pending> Platelet Count Blood Auto CNT <pending> MPV <pending> Lymph% <pending> Fentress% <pending> Neutrophil % <pending> Absolute Lymphocytes <pending> [...] SGPT <pending> Protein Total <pending> Xray 09/15/2018 [facility] Radiology MRI Abdomen W/Wo <pending> Xray 09/09/2018 [facility] Radiology CT Chest W/O <pending> Xray 09/09/2018 [facility] Radiology CT, Abd & Pelvis <pending> W/ Contrast Xray 09/06/2018 [facility] Radiology MRI Cholangiogram <pending> (MRCP) Laboratory test 09/05/2018 [facility] Ferritin Ser/Plas <pending> finding Mass/Vol(!) Alcohol 09/05/2018 [facility] Z#Other <pending> Observations Laboratory test 03/29/2018 [facility] Fecal Lactoferrin SEE RESULT 3 finding (Stool WBC) BELOW Stool Occult 03/29/2018 [facility] Stool Occult SEE RESULT 4 Blood Diag Blood, Diag BELOW Liver Function 03/28/2018 [facility] Albumin 4.0 g/dL 3.5- Panel(!) [address] [facility] Serum/Plasma(!) 5.2 [place] [id number] [phone] Alkaline Phosphatase(!) 75 U/L 39-117 Bilirubin Direct [...] Auto CNT <pending> MPV <pending> Lymph% <pending> Fentress% <pending> Neutrophil % <pending> Absolute Lymphocytes <pending> [...] 5 Kidney failure <15 (or dialysis) 2 Because ethnic data is not always readily [...] 15-29 5 Kidney failure <15 (or dialysis) 3 SEE RESULT BELOW Name: ANNABELLADIOMEDES : [address]: Kelsie SOLIS Acct: [id number] Unit: [id number] AGE: 57 Location: [facility] Re03/29/18 SEX: M Status: REG REF SPEC: [id number] GIRMA: 03/29/[address]: Kelsie SOLIS REQ: [id number] RECD: 03/29/18 STATUS: RES _ SOURCE: STOOL SPDESC: ORDERED: Occult Bl, Diag, Fecal Lactoferr Procedure Result Reported Site Stool Specimen Description Final 03/29/18- 1311 ML Stool Color Brown Stool Form Nonformed Stool Consistency Soft Fecal Lactoferrin (Stool WBC) PENDING Stool Occult Blood (1) PENDING * ML - Main Lab . END OF REPORT DEPARTMENT OF PATHOLOGY, [address] [place] [address] Mejia Osborne M.D. Director [facility] # [id number] 4 SEE RESULT BELOW Name: DIOMEDES NEGRO : [address]: Kelsie SOLIS Acct: [id number] Unit: [id number] AGE: 57 Location: [facility] Re03/29/18 SEX: M Status: REG REF SPEC: [id number] GIRMA: 03/29/[address]: Kelsie SOLIS REQ: [id number] RECD: 03/29/18 STATUS: COMP _ SOURCE: STOOL [...] . END OF REPORT DEPARTMENT OF PATHOLOGY, [address] [place] [address] Mejia Osborne M.D. Director [facility] # [id number] Procedures Description No Information Available Encounters Type Date Location Provider Dx Diagnosis Office Visit 11/14/2018 [facility] Hamzah Foss, K70.10 Alcoholic 9:30a [facility] hepatitis without ascites K86.2 Cyst of pancreas R74.0 Nonspec elev of levels of transamns & lactic acid dehydrgnse F10.21 Alcohol dependence, in remission R93.3 Abnormal findings on dx imaging of prt digestive tract Z71.41 Alcohol abuse counseling and surveillance of alcoholic Office Visit 10/11/2018 [facility] Hamzah Foss, KAlysa.10 Alcoholic 3:00p [facility] DO hepatitis without ascites R74.0 Nonspec elev of levels of transamns & lactic acid dehydrgnse K86.2 Cyst of pancreas R93.3 Abnormal findings on dx imaging of prt digestive tract F10.21 Alcohol dependence, in remission Z71.41 Alcohol abuse counseling and surveillance of alcoholic Office Visit 09/05/2018 [facility] Hamzah Foss, R17 Unspecified 9:30a [facility] DO jaundice R74.0 Nonspec elev of levels of transamns & lactic acid dehydrgnse R63.4 Abnormal weight loss F10.20 Alcohol dependence, uncomplicated Z71.41 Alcohol abuse counseling and surveillance of alcoholic Office Visit 03/28/2018 [facility] Kelsie AndresRigo R63.4 Abnormal 8:45a [facility] LISA Jones weight loss R63.0 Anorexia R11.2 Nausea with vomiting, unspecified R13.14 Dysphagia, pharyngoesophageal phase R19.4 Change in bowel habit Plan of Treatment Future Appointment(s):02/13/2019 9:00 am - Hamzah Foss DO at [facility]11/14/2018 - Hazmah Foss DOK70.10 Alcoholic hepatitis without ollofdlM53.2 Cyst of ktrfqbdvO54.0 Nonspecific elevation of levels of transaminase and lactic acid dehydrogenase [LDH]F10.21 Alcohol dependence, in wighqzuoqG84.3 Abnormal findings on diagnostic imaging of other parts of digestive tractComments:RISKS AND BENEFITS OF THE PROCEDURE WERE DISCUSSED WITH PATIENT.Z71.41 Alcohol abuse counseling and surveillance of alcoholic
--- OUTSIDE RECORDS SUMMARY | 2018-11-27 23:07 | XMS REPORT | Continuity of Care Document ---
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 Cialis / Active Tablets 5mg Niziol,Blanche jaffe MD Testosterone / Active Solution 200mg/ml [...] 5.7 3/UL 4.8- 10.8 Differential(!) [address] [facility] [place] [place] [address] Count Ser [phone] Auto CNT RBC Red Blood Count 3.74 X106/UL Low 4.20-6.20 Hemoglobin Blood 13.3 g/dL 12.0-18.0 Hematocrit 39.9 % 35-52 MCV (Corpuscular Volume) 106.7 FL High 79-97 MCH (Corpuscular Hemoglobin) 35.7 pg High 27-31 MCHC (Corpuscular Hemog Conc) 33.4 g/dL 32.0-36.0 RDW 14.1 % 10.5-15.0 Platelet Count Blood Auto CNT 226 X103/UL 150-450 MPV 6.8 FL Low 7.4-10.4 Lymph% 29.5 % 20.0-45.0 Overton% 6.1 % 1.0-9.0 Neutrophil % 64.4 % 38.0-83.0 Absolute Lymphocytes 1.7 X103/UL 1.0-4.8 Absolute Monocytes 0.3 X103/UL 0.0-0.8 Absolute Neutrophils 3.7 X103/UL 1.5-7.7 Laboratory test 10/11/2018 [facility] Ferritin 262.5 High 24-250 finding [address] [facility] Ser/Plas ng/[place] [address] Mass/Vol(!) [phone] Inr(!) 0.9 CMP(!) 09/19/2018 [facility] Sodium(!) [...] Auto CNT <pending> MPV <pending> Lymph% <pending> Overton% <pending> Neutrophil % <pending> Absolute Lymphocytes <pending> [...] Auto CNT <pending> MPV <pending> Lymph% <pending> Overton% <pending> Neutrophil % <pending> Absolute Lymphocytes <pending> [...] Auto CNT <pending> MPV <pending> Lymph% <pending> Overton% <pending> Neutrophil % <pending> Absolute Lymphocytes <pending> Absolute Monocytes <pending> Absolute Neutrophils <pending> Xray 09/15/2018 [facility] Radiology MRI Abdomen W/Wo <pending> Xray 09/09/2018 [facility] Radiology CT, Abd & Pelvis <pending> W/ Contrast Xray 09/09/2018 [facility] Radiology CT Chest W/O <pending> Xray 09/06/2018 [facility] Radiology MRI Cholangiogram <pending> (MRCP) Alcohol 09/05/2018 [facility] Z#Other <pending> Observations Laboratory test 09/05/2018 [facility] Ferrit[facility] Ser/Plas <pending> finding Mass/Vol(!) Stool Occult 03/29/2018 [facility] Stool Occult SEE RESULT 2 Blood Diag Blood, Diag BELOW Laboratory test 03/29/2018 [facility] Fecal Lactoferrin SEE RESULT 3 finding (Stool WBC) BELOW Liver Function 03/28/2018 [facility] Albumin 4.0 g/dL 3.5- Panel(!) [address] [facility] Serum/Plasma(!) 5.2 [place] [address] [phone] Alkaline Phosphatase(!) 75 U/L 39-117 Bilirubin Direct [...] Auto CNT <pending> MPV <pending> Lymph% <pending> Overton% <pending> Neutrophil % <pending> Absolute Lymphocytes <pending> [...] : [address]: Kelsie SOLIS Acct: [id number] Unit: [id number] AGE: 57 Location: [facility] Re03/29/18 SEX: M Status: REG REF SPEC: [id number] GIRMA: 03/29/[address]: Kelsie SOLIS REQ: [id number] RECD: 03/29/18 STATUS: COMP _ SOURCE: STOOL [...] . END OF REPORT DEPARTMENT OF PATHOLOGY, [address] [place] [address] Mejia Osborne M.D. Director [facility] # [id number] 3 SEE RESULT BELOW Name: SRUTHIBRAYAN OLIVA : [address]: Kelsie SOLIS Acct: [id number] Unit: [id number] AGE: 57 Location: [facility] Re03/29/18 SEX: M Status: REG REF SPEC: [id number] GIRMA: 03/29/[address]: Kelsie SOLIS REQ: [id number] RECD: 03/29/18 STATUS: RES _ SOURCE: STOOL SPDESC: ORDERED: Occult Bl, Diag, Fecal Lactoferr Procedure Result Reported Site Stool Specimen Description Final 03/29/18- 1311 ML Stool Color Brown Stool Form Nonformed Stool Consistency Soft Fecal Lactoferrin (Stool WBC) PENDING Stool Occult Blood (1) PENDING * ML - Main Lab . END OF REPORT DEPARTMENT OF PATHOLOGY, [address] [place] [address] Mejia Osborne M.D. Director [facility] # [id number] Procedures Description No Information Available Encounters Type Date Location Provider Dx Diagnosis Office Visit 10/11/2018 [facility] Hamzah Foss, K70.10 Alcoholic 3:00p [facility] [place] DO hepatitis without ascites R74.0 Nonspec elev of levels of transamns & lactic acid dehydrgnse K86.2 Cyst of pancreas R93.3 Abnormal findings on dx imaging of prt digestive tract F10.21 Alcohol dependence, in remission Z71.41 Alcohol abuse counseling and surveillance of alcoholic Office Visit 09/05/2018 [facility] Hamzah Foss, R17 Unspecified 9:30a [facility] DO jaundice R74.0 Nonspec elev of levels of transamns & lactic acid dehydrgnse R63.4 Abnormal weight loss F10.20 Alcohol dependence, uncomplicated Z71.41 Alcohol abuse counseling and surveillance of alcoholic Office Visit 03/28/2018 [facility] Kelsie LRigo R63.4 Abnormal 8:45a [facility] LISA Jones weight loss R63.0 Anorexia R11.2 Nausea with vomiting, unspecified R13.14 Dysphagia, pharyngoesophageal phase R19.4 Change in bowel habit Plan of Treatment Future Appointment(s):11/14/2018 9:30 am - Hamzah Foss DO at [facility]10/11/2018 - Hamzah Foss DOK70.10 Alcoholic hepatitis without ascitesNew Medication:Prednisone 10 mg - 3 tablets by mouth daily x 1 week, then 2 tablets by mouth daily x 1 week, then 1tablet by mouth daily x 1 week.R74.0 Nonspecific elevation of levels of transaminase and lactic acid dehydrogenase [LDH]K86.2 Cyst of wwfsdgmvA38.3 Abnormal findings on diagnostic imaging of other parts of digestive spyzaG75.21 Alcohol dependence, in bafjhdyomD39.41 Alcohol abuse counseling and surveillance of alcoholic
--- NOTE | 2018-11-27 23:38 | ED ---
Substance Abuse/Use - HPI Summary HPI Summary: Pt. is a 58 y.o male who presents to the ER for alcohol intoxication. Pt. has a hx of alcoholism and states he voluntarily checked into rehab last week. Pt. states he did not like his roommates at rehab and checked himself out two days ago. Pt. states he started drinking again tonight and drank "3 beers." Pt. denies any falls or injuries. Pt. reportedly brought in by police after being intoxicated at [facility]. Pt. denies any injuries or falls tonight. Pt. has no complaints. Sxs are moderate in severity. No current modifying factors. - History Of Current Complaint Chief Complaint: EDSubstanceAbuse Stated Complaint: 2209, ETOH PER EMS Time Seen by Provider: 11/27/18 23:09 Hx Obtained From: Patient, Family/Tester Operator Helper - Allergies/Home Medications Allergies/Adverse Reactions: Allergies Allergy/AdvReac Type Severity Reaction Status Date / Time amoxicillin Allergy GI Upset Verified 11/27/18 23:00 PMH/Surg Hx/FS Hx/Imm Hx Previously Healthy: Yes Endocrine/Hematology History: Denies: Hx Diabetes, Hx Thyroid Disease Cardiovascular History: Reports: Hx Hypertension - DOES TAKE MEDICATIONS Denies: Hx Pacemaker/ICD Respiratory History: Denies: Hx Asthma, Hx Chronic Obstructive Pulmonary Disease (COPD) GI History: Denies: Hx Ulcer History: Denies: Hx Renal Disease Sensory History: Reports: Hx Contacts or Glasses Denies: Hx Hearing Aid Opthamlomology History: Reports: Hx Contacts or Glasses Psychiatric History: Denies: Hx Panic Disorder - Surgical History Surgery Procedure, Year, and Place: [facility] SCAN OF PANCREAS AND LIVER (LAP); - Immunization History Date of Tetanus Vaccine: UTD Date of Influenza Vaccine: NO Infectious Disease History: Unable to Obtain/Confirm Infectious Disease History: Denies: Hx Hepatitis, Hx Human Immunodeficiency Virus (HIV), Traveled Outside the [place] in Last 30 Days - Family History Known Family History: Positive: Hypertension - Social History Occupation: Unemployed Lives: With Family Alcohol Use: Daily Alcohol Amount: 1-2 beers per day Hx Substance Use: No Substance Use Type: Reports: None Hx Tobacco Use: No Smoking Status (MU): Former Smoker Review of Systems Constitutional: Negative Cardiovascular: Negative Negative: Chest Pain Respiratory: Negative Negative: Shortness Of Breath Gastrointestinal: Negative Negative: Abdominal Pain Musculoskeletal: Negative Neurological: Negative Psychological: Normal All Other Systems Reviewed And Are Negative: Yes Physical Exam Triage Information Reviewed: Yes Vital Signs On Initial Exam: Initial Vitals Temp Pulse Resp BP Pulse Ox 98.2 F 69 20 135/79 97 11/27/18 22:49 11/27/18 22:49 11/27/18 22:49 11/27/18 22:49 11/27/18 22:49 Vital Signs Reviewed: Yes Appearance: Positive: Well-Appearing - Pt. lying on stretcher in NAD. Answers most questions appropriately. Oriented to self, place and month. Skin: Positive: Warm, Dry Head/Face: Positive: Normal Head/Face Inspection Eyes: Positive: Normal, EOMI, GERMAN Neck: Positive: Supple Respiratory/Lung Sounds: Positive: Clear to Auscultation, Breath Sounds Present Cardiovascular: Positive: Normal, RRR Abdomen Description: Positive: Nontender, Soft Musculoskeletal: Positive: Normal, Strength/ROM Intact - Moving all 4 extremities without pain. Neurological: Positive: Normal, Alert, Oriented to Person Place, Time, CN Intact II-III Psychiatric: Positive: Affect/Mood Appropriate - Tiffany Coma Scale Best Eye Response: 4 - Spontaneous Best Motor Response: 6 - Obeys Commands Best Verbal Response: 5 - Oriented Coma Scale Total: 15 Diagnostics - Vital Signs Vital Signs Temp Pulse Resp BP Pulse Ox 11/27/18 22:49 98.2 F 69 20 135/79 97 - Laboratory Lab Statement: Any lab studies that have been ordered have been reviewed, and results considered in the medical decision making process. Course/Dx - Course Course Of Treatment: Pt presenting for alcohol intoxication. Stable VS. No signs or complaints of trauma. Pt. sleeping comfortable in hallway bed. Pt. will be signed out to Dr. King pending sobriety. - Diagnoses Differential Diagnosis/HQI/PQRI: Positive: Alcohol Abuse Provider Diagnoses: Alcohol intoxication Discharge - Sign-Out/Discharge Documenting (check all that apply): Sign-Out Patient Signing out patient TO: Fuentes King Patient Received Moderate/Deep Sedation with Procedure: No - Discharge Plan Condition: Good Disposition: HOME Referrals: Luc Hartley MD [Primary Care Provider] - - Billing Disposition and Condition Condition: GOOD Disposition: Home
--- NOTE | 2018-11-28 02:41 | ED ---
Progress - Progress Note Progress Note: RECEIVING SIGN OUT AT SHIFT CHANGE FROM WILL ECHEVERRIA PENDING SOBRIETY. A 58 y/o M brought in by ambulance presents to ED with ETOH intoxication. Course/Dx - Course Course Of Treatment: RECEIVING SIGN OUT AT SHIFT CHANGE FROM WILL ECHEVERRIA PENDING SOBRIETY. A 58 y/o M brought in by ambulance presents to ED with ETOH intoxication. - Diagnoses Provider Diagnoses: Alcohol intoxication Discharge - Sign-Out/Discharge Documenting (check all that apply): Patient Departure - DC, Receiving Sign-Out Receiving patient FROM: Kavon Echeverria - pending sobriety Patient Received Moderate/Deep Sedation with Procedure: No - Discharge Plan Condition: Good Disposition: HOME Referrals: Luc Hartley MD [Primary Care Provider] - - Billing Disposition and Condition Condition: GOOD Disposition: Home - Attestation Statements Document Initiated by Scribe: Yes Documenting Scribe: Mark Hankins Provider For Whom Scribe is Documenting (Include Credential): Dr. Fuentes King MD Scribe Attestation: Melodie, veronica Lewised for Dr. Fuentes King MD on 11/28/18 at 0639. Scribe Documentation Reviewed: Yes Provider Attestation: The documentation as recorded by the Mark gallagher accurately reflects the service I personally performed and the decisions made by , Dr. Fuentes King MD Status of Scribe Document: Viewed
[2018-11-28 07:39] VITALS: BP 156/93
== END 2018-11-28 07:37 | disposition home or self-care (01) ==
LOC: ED 22:44
DX: F10.129 Alcohol abuse with intoxication, unspecified (principal); I10 Essential (primary) hypertension; Z88.3 Allergy status to other anti-infective agents; Z79.899 Other long term (current) drug therapy; Z87.891 Personal history of nicotine dependence
CPT/HCPCS: 99282

== ENCOUNTER 2018-12-04 23:31 | Emergency (ER) | payer BC ==
--- OUTSIDE RECORDS SUMMARY | 2018-12-04 23:51 | XMS REPORT | Continuity of Care Document ---
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 Luc Hartley MD Primary Care Physician Unavailable Payers Date Identification Numbers Payment Provider Subscriber Policy Number: [id number] Formerly [facility] Employees Brayan Negro PayID: [id number] [address] [place] [address] Expires: 2018 Policy Number: [id number] Of [facility] Jany Drummondor PayID: [id number] [address] [address] [place] [address] Advance Directives Description No Information Available Problems Active Problems Provider Date Digestive symptom Kelsie Jones PA-C Onset: 03/28/2018 Esophageal dysphagia Kelsie Jones PA-C Onset: 03/28/2018 Nausea and vomiting Kelsie Jones PA-C Onset: 03/28/2018 Loss of appetite Kelsie Jones PA-C Onset: 03/28/2018 Weight decreased Kelsie Jones PA-C Onset: 03/28/2018 Family History Description No Information Available Social History Type Date Description Comments Sex Unknown ETOH Use Still using etoh, last 11/02 per patient. Tobacco Use Start: Unknown Patient has never smoked Smoking Status Reviewed: 11/14/18 Patient has never smoked Allergies, Adverse Reactions, Alerts Active Allergies Reaction Severity Comments Date Amoxicillin 03/28/2018 Medications Active Medications SIG Qnty Indications Ordering Provider Date Testosterone Cypionate Unknown 200mg/ml Solution Lactulose 30 ML Daily Unknown 10GM/15ML Solution Primidone Take 1 Tablet By Unknown 250mg Tablets Mouth Three Times Daily Propranolol HCL ER Take 1 Capsule By Unknown 120mg Mouth Every Day Caps ER 24HR Xifaxan Take 1 Tablet By Unknown 550mg Tablets Mouth Two Times Daily Amlodipine Besylate Take 1 Tablet By Unknown 10mg Mouth Every Day Tablets Labetalol HCL 1 by mouth twice Unknown 100mg a day Tablets History Medications Prednisone 3 tablets by 42tabs K70.10 Hamzah Foss, DO 10/11/2018 - 10mg mouth daily x 1 11/14/2018 Tablets week, then 2 tablets by mouth daily x 1 week, then 1 tablet by mouth daily x 1 week. Prednisone Take 2 Tablets By Unknown - 20mg Mouth Every Day 10/11/2018 Tablets Mysoline 1/4 Tablet Daily Unknown - 50mg Tablets 10/10/2018 Amlodipine Besylate Luc Hartley - 09/05/2018 10mg Tablets Alrex Unknown - 0.2% Suspension 10/10/2018 Flovent HFA Luc Hartley - 09/05/2018 220mcg/Act Aerosol Propranolol HCL ER Take 2 Capsules Unknown - By Mouth Every 09/05/2018 60mg Caps ER 24HR Day Gabapentin Luc Hartley - 300mg 09/05/2018 Capsules Cialis Luc Hartley, - 5mg Tablets WA 11/14/2018 Alprazolam Luc Hartley - 0.25mg 10/10/2018 Tablets Irbesartan-Hydrochlo Luc Hartley - rothiazide 09/05/2018 150-12.5mg Tablets Immunizations Description No Information Available Vital Signs [...] White 5.9 3/UL 4.8- 10.8 Differential(!) [address] [place] [address] Count Ser [phone] Auto CNT RBC Red Blood Count 4.69 X106/UL 4.20-6.20 Hemoglobin Blood 15.4 g/dL 12.0-18.0 Hematocrit 46.9 % 35-52 MCV (Corpuscular Volume) 99.9 FL High 79-97 MCH (Corpuscular Hemoglobin) 32.9 pg High 27-31 MCHC (Corpuscular Hemog Conc) 32.9 g/dL 32.0-36.0 RDW 14.2 % 10.5-15.0 Platelet Count Blood Auto CNT 222 X103/UL 150-450 MPV 6.8 FL Low 7.4-10.4 Lymph% 27.5 % 20.0-45.0 [place]% 9.0 % 1.0-9.0 Neutrophil % 63.5 % 38.0-83.0 Absolute Lymphocytes 1.6 X103/UL 1.0-4.8 Absolute Monocytes 0.5 X103/UL 0.0-0.8 Absolute Neutrophils 3.7 X103/UL 1.5-7.7 Laboratory test finding 11/14/2018 [facility] Inr(!) 0.9 [address] [place] [address] [phone] Ferritin Ser/Plas Mass/Vol(!) 123.4 ng/dL 24-250 Comp [...] White 5.7 3/UL 4.8- 10.8 Differential(!) [address] [facility] [place] [address] Count Ser [phone] Auto CNT RBC Red Blood Count 3.74 X106/UL Low 4.20-6.20 Hemoglobin Blood 13.3 g/dL 12.0-18.0 Hematocrit 39.9 % 35-52 MCV (Corpuscular Volume) 106.7 FL High 79-97 MCH (Corpuscular Hemoglobin) 35.7 pg High 27-31 MCHC (Corpuscular Hemog Conc) 33.4 g/dL 32.0-36.0 RDW 14.1 % 10.5-15.0 Platelet Count Blood Auto CNT 226 X103/UL 150-450 MPV 6.8 FL Low 7.4-10.4 Lymph% 29.5 % 20.0-45.0 [place]% 6.1 % 1.0-9.0 Neutrophil % 64.4 % 38.0-83.0 Absolute Lymphocytes 1.7 X103/UL 1.0-4.8 Absolute Monocytes 0.3 X103/UL 0.0-0.8 Absolute Neutrophils 3.7 X103/UL 1.5-7.7 Laboratory test 10/11/2018 [facility] Ferritin 262.5 High 24-250 finding [address] [facility] Ser/Plas ng/[place] [address] Mass/Vol(!) [phone] Inr(!) 0.9 CMP(!) 09/19/2018 [facility] Sodium(!) [...] Auto CNT <pending> MPV <pending> Lymph% <pending> [place]% <pending> Neutrophil % <pending> Absolute Lymphocytes <pending> [...] Auto CNT <pending> MPV <pending> Lymph% <pending> [place]% <pending> Neutrophil % <pending> Absolute Lymphocytes <pending> Absolute Monocytes <pending> Absolute Neutrophils <pending> CBC W/Auto 09/17/2018 [facility] White Blood <pending> Differential(!) Count Ser Auto CNT RBC Red Blood Count <pending> Hemoglobin Blood <pending> Hematocrit <pending> MCV (Corpuscular Volume) <pending> MCH (Corpuscular Hemoglobin) <pending> MCHC (Corpuscular Hemog Conc) <pending> RDW <pending> Platelet Count Blood Auto CNT <pending> MPV <pending> Lymph% <pending> [place]% <pending> Neutrophil % <pending> Absolute Lymphocytes <pending> [...] SGPT <pending> Protein Total <pending> Xray 09/15/2018 [facility] [place] Abdomen W/Wo <pending> Xray 09/09/2018 [facility] [place] Chest W/O <pending> Xray 09/09/2018 [facility] [place] CT, Abd & Pelvis <pending> W/ Contrast Xray 09/06/2018 [facility] [place] [facility] MRI Cholangiogram <pending> (MRCP) Laboratory test 09/05/2018 [facility] Ferritin Ser/Plas <pending> finding Mass/Vol(!) Alcohol 09/05/2018 [facility] Z#Other <pending> Observations Laboratory test 03/29/2018 [facility] [place] Fecal Lactoferrin SEE RESULT 3 finding (Stool WBC) BELOW Stool Occult 03/29/2018 [facility] [place] Stool Occult SEE RESULT 4 Blood Diag Blood, Diag BELOW Liver Function 03/28/2018 [facility] Albumin 4.0 g/dL 3.5- Panel(!) [address] [facility] Serum/Plasma(!) 5.2 [place] [address] [phone] Alkaline Phosphatase(!) 75 U/L 39-117 Bilirubin Direct [...] Auto CNT <pending> MPV <pending> Lymph% <pending> [place]% <pending> Neutrophil % <pending> Absolute Lymphocytes <pending> [...] (or dialysis) 3 SEE RESULT BELOW Name: BRAYAN NEGRO : [address]: Kelsie SOLIS Acct: [id number] Unit: [id number] AGE: 57 Location: [facility] Re03/29/18 SEX: M Status: REG REF SPEC: [id number] GIRMA: 03/29/[address]: Kelsie SOLIS REQ: [id number] RECD: 03/29/18 STATUS: RES _ SOURCE: STOOL SPDESC: ORDERED: Occult Bl, Diag, Fecal Lactoferr Procedure Result Reported Site Stool Specimen Description Final 03/29/18- 1311 ML Stool Color Brown Stool Form Nonformed Stool Consistency Soft Fecal Lactoferrin (Stool WBC) PENDING Stool Occult Blood (1) PENDING * ML - Main Lab . END OF REPORT DEPARTMENT OF PATHOLOGY, [address] [place] [address] Mejia Osborne M.D. Director [facility] # [id number] 4 SEE RESULT BELOW Name: BRAYAN NEGRO : [address]: Kelsie SOLIS Acct: [id number] Unit: [id number] AGE: 57 Location: [facility] Re03/29/18 SEX: M Status: REG REF SPEC: [id number] GIRMA: 03/29/[address]: Kelsie SOLIS REQ: [id number] RECD: 03/29/18 STATUS: COMP _ SOURCE: STOOL [...] . END OF REPORT DEPARTMENT OF PATHOLOGY, [address] [place] [address] Mejia Osborne M.D. Director [facility] # [id number] Procedures Description No Information Available Encounters Type Date Location Provider Dx Diagnosis Office Visit 11/14/2018 [facility] Hamzah Foss, K70.10 Alcoholic 9:30a [facility] hepatitis without ascites K86.2 Cyst of pancreas R74.0 Nonspec elev of levels of transamns & lactic acid dehydrgnse F10.21 Alcohol dependence, in remission R93.3 Abnormal findings on dx imaging of prt digestive tract Z71.41 Alcohol abuse counseling and surveillance of alcoholic Office Visit 10/11/2018 [facility] Hamzah Foss, K70.10 Alcoholic 3:00p [facility] [place] DO hepatitis without ascites R74.0 Nonspec elev of levels of transamns & lactic acid dehydrgnse K86.2 Cyst of pancreas R93.3 Abnormal findings on dx imaging of prt digestive tract F10.21 Alcohol dependence, in remission Z71.41 Alcohol abuse counseling and surveillance of alcoholic Office Visit 09/05/2018 [facility] Hamzah Foss, R17 Unspecified 9:30a [facility] [place] DO jaundice R74.0 Nonspec elev of levels of transamns & lactic acid dehydrgnse R63.4 Abnormal weight loss F10.20 Alcohol dependence, uncomplicated Z71.41 Alcohol abuse counseling and surveillance of alcoholic Office Visit 03/28/2018 [facility] Kelsie Westfall R63.4 Abnormal 8:45a [facility] weight loss R63.0 Anorexia R11.2 Nausea with vomiting, unspecified R13.14 Dysphagia, pharyngoesophageal phase R19.4 Change in bowel habit Plan of Treatment Future Appointment(s):02/13/2019 9:00 am - Hamzah Foss DO at [facility]11/14/2018 - Hamzah Foss DOK70.10 Alcoholic hepatitis without tqtmskbR86.2 Cyst of nshusdhiK41.0 Nonspecific elevation of levels of transaminase and lactic acid dehydrogenase [LDH]F10.21 Alcohol dependence, in vjmvlojtxS50.3 Abnormal findings on diagnostic imaging of other parts of digestive tractComments:RISKS AND BENEFITS OF THE PROCEDURE WERE DISCUSSED WITH PATIENT.Z71.41 Alcohol abuse counseling and surveillance of alcoholic
--- NOTE | 2018-12-05 00:46 | ED ---
Substance Abuse/Use - HPI Summary HPI Summary: 50-year-old male presents with alcohol intoxication today. He states called EMS because was laying on the floor. He states he placed himself on the floor. worried that he passed out. He has history of CVAs. He denies any complaints at this time. No chest pain or shortness breath. He claims he did not pass out. He denies any bowel pain. No dizziness. No headache. He states that he feels fine. He does have some baseline neuro deficit from previous stroke. - History Of Current Complaint Chief Complaint: EDSubstanceAbuse Stated Complaint: "ETOH" PER EMS Time Seen by Provider: 12/05/18 00:03 - Allergies/Home Medications Allergies/Adverse Reactions: Allergies Allergy/AdvReac Type Severity Reaction Status Date / Time amoxicillin Allergy GI Upset Verified 12/04/18 23:35 PMH/Surg Hx/FS Hx/Imm Hx Endocrine/Hematology History: Denies: Hx Diabetes, Hx Thyroid Disease Cardiovascular History: Reports: Hx Hypertension - DOES TAKE MEDICATIONS Denies: Hx Pacemaker/ICD Respiratory History: Denies: Hx Asthma, Hx Chronic Obstructive Pulmonary Disease (COPD) GI History: Denies: Hx Ulcer History: Denies: Hx Renal Disease Sensory History: Reports: Hx Contacts or Glasses Denies: Hx Hearing Aid Opthamlomology History: Reports: Hx Contacts or Glasses Psychiatric History: Denies: Hx Panic Disorder - Surgical History Surgery Procedure, Year, and Place: [facility] SCAN OF PANCREAS AND LIVER (LAP); - Immunization History Date of Tetanus Vaccine: UTD Date of Influenza Vaccine: NO Infectious Disease History: Unable to Obtain/Confirm Infectious Disease History: Denies: Hx Hepatitis, Hx Human Immunodeficiency Virus (HIV), Traveled Outside the [place] in Last 30 Days - Family History Known Family History: Positive: Hypertension - Social History Alcohol Use: Daily Alcohol Amount: 1-2 beers per day Hx Substance Use: No Substance Use Type: Reports: None Hx Tobacco Use: No Smoking Status (MU): Former Smoker Review of Systems Negative: Fever Negative: Chest Pain Negative: Shortness Of Breath Negative: Myalgia Negative: Headache All Other Systems Reviewed And Are Negative: Yes Physical Exam Triage Information Reviewed: Yes Vital Signs On Initial Exam: Initial Vitals Temp Pulse Resp BP Pulse Ox 98.7 F 70 14 140/85 96 12/04/18 23:32 12/04/18 23:32 12/04/18 23:32 12/04/18 23:32 12/04/18 23:32 Vital Signs Reviewed: Yes Appearance: Positive: Well-Appearing Skin: Positive: Warm, Dry Head/Face: Positive: Normal Head/Face Inspection Eyes: Positive: Normal, EOMI, GERMAN, Conjunctiva Clear ENT: Positive: Normal ENT inspection, Pharynx normal, TMs normal Respiratory/Lung Sounds: Positive: Clear to Auscultation, Breath Sounds Present Cardiovascular: Positive: Normal, RRR Abdomen Description: Positive: Nontender, Soft Bowel Sounds: Positive: Present Musculoskeletal: Positive: Normal Neurological: Positive: Sensory/Motor Intact, Alert, Oriented to Person Place, Time, CN Intact II-III Psychiatric: Positive: Normal - [place] Coma Scale Best Eye Response: 4 - Spontaneous Best Motor Response: 6 - Obeys Commands Best Verbal Response: 5 - Oriented Coma Scale Total: 15 Diagnostics - Vital Signs Vital Signs Temp Pulse Resp BP Pulse Ox 12/04/18 23:32 98.7 F 70 14 140/85 96 - Laboratory Result Diagrams: 12/05/18 00:56 12/05/18 00:56 Lab Statement: Any lab studies that have been ordered have been reviewed, and results considered in the medical decision making process. - CT brain CT Interpretation Completed By: Radiologist Summary of CT Findings: IMPRESSION: Near complete resolution of left basal ganglia intraparenchymal hemorrhage with. residual vasogenic edema. No midline shift. No new hemorrhage. - EKG No standard instances Cardiac Rate: NL EKG Rhythm: Sinus Rhythm EKG Comparison: No Significant Change Summary of EKG Findings: sinus rhythm Course/Dx - Course Course Of Treatment: 50-year-old male presents with alcohol intoxication today. He states called EMS because was laying on the floor. He states he placed himself on the floor. worried that he passed out. He has history of CVAs. He denies any complaints at this time. No chest pain or shortness breath. He claims he did not pass out. He denies any bowel pain. No dizziness. No headache. He states that he feels fine. He does have some baseline neuro deficit from previous stroke. on exam patient is intoxicated. Has normal neuro exam. CT brain normal. EKG shows sinus rhythm. Lab work with significant abnormalitry except for alcohol for 421. Patient will be signed out to Dr. King pending clinical sobriety. - Diagnoses Differential Diagnosis/HQI/PQRI: Positive: Alcohol Abuse, Other - cva, syncope Provider Diagnoses: Alcohol intoxication Discharge - Sign-Out/Discharge Documenting (check all that apply): Sign-Out Patient Signing out patient TO: Fuentes King - Discharge Plan Patient Education Materials: Abuse of Alcohol (ED) Referrals: Luc Hartley MD [Primary Care Provider] - Additional Instructions: Follow up with primary limit alcohol consumption Return to ED if develop any new or worsening symptoms
[2018-12-05 01:15] LABS: ABS Basophils 0.1 10^3/ul (0-0.2); ABS Eosinophils 0.1 10^3/ul (0-0.6); ABS Lymphocytes 1.3 10^3/ul (1.0-4.8); ABS Monocytes 0.7 10^3/ul (0-0.8); ABS Neutrophils 3.4 10^3/ul (1.5-7.7); ABS Nucleated RBC 0 10^3/ul; Eosinophil % 1.5 %; Hematocrit 45 % (36-46); Hemoglobin 15.7 g/dL (14.0-18.0); Lymphocyte % 23.8 %; Mean Corpuscular HGB Conc 35 g/dL (31-36); Mean Corpuscular Hemoglobin 33 pg (27-31); Mean Corpuscular Volume 95 fL (80-94); Mean Platelet Volume 7.2 fL (7.4-10.4); Nucleated Red Blood Cells % 0.1; Platelet Count 205 10^3/uL (150-450); Red Blood Count 4.72 10^6 /uL (4.18-5.48); Red Cell Distribution Width 14 % (10.5-15); White Blood Count 5.6 10^3/uL (3.5-10.8)
[2018-12-05 01:22] LABS: Albumin/Globulin Ratio 1.6 (1-3); BUN/Creatinine Ratio 15.3 (8-20); Calcium 8.5 mg/dL (8.6-10.3); EGFR African American 135.7 (>60); EGFR Non-African American 112.1 (>60); Globulin 2.5 g/dL (2-4); Potassium 4.3 mmol/L (3.5-5.0); Total Bilirubin 0.6 mg/dL (0.2-1.0); Total Protein 6.5 g/dL (6.4-8.9)
[2018-12-05 01:23] LABS: Troponin I 0.01 ng/mL (<0.04)
--- NOTE | 2018-12-05 06:45 | ED ---
Progress - Progress Note Progress Note: Patient signed out from WILL Mccormick upon shift change pending sobriety. Patient will be signed out to Dr. Almaraz pending sobriety. Course/Dx - Course Course Of Treatment: 50-year-old male presents with alcohol intoxication today. He states called EMS because was laying on the floor. Patient was signed out from WILL Mccormick upon shift change. Patient will be signed out to Dr. Almaraz pending clinical sobriety. - Diagnoses Provider Diagnoses: Alcohol intoxication Discharge - Sign-Out/Discharge Documenting (check all that apply): Sign-Out Patient, Receiving Sign-Out Signing out patient TO: Dheeraj Almaraz - Upon shift change pending sobriety Receiving patient FROM: Annette Mccormick - Upon shift change pending sobriety Patient Received Moderate/Deep Sedation with Procedure: No - Discharge Plan Condition: Stable Disposition: HOME Prescriptions: Diazepam TAB(*) [Valium TAB(*)] 5 mg PO Q6H PRN #10 tab MDD 4 PRN Reason: Withdrawal - Alcohol Patient Education Materials: Abuse of Alcohol (ED) Referrals: [facility] [place] [Outside] - 1 Day Luc Hartley MD [Primary Care Provider] - 2 Days Additional Instructions: Follow up with primary limit alcohol consumption Return to ED if develop any new or worsening symptoms I've also given you a referral to [facility] for easier access to detox/rehab/ alcohol followup - Billing Disposition and Condition Condition: STABLE Disposition: Home - Attestation Statements Document Initiated by Scribe: Yes Documenting Scribe: Justine Kohler Provider For Whom Tahir is Documenting (Include Credential): Dr. Fuentes King MD Scribe Attestation: Justine Sewell scribed for Dr. Fuentes King MD on 12/06/18 at 0058. Scribe Documentation Reviewed: Yes Provider Attestation: The documentation as recorded by the Justine gallagher accurately reflects the service I personally performed and the decisions made by me, Dr. Fuentes King MD Status of Scribe Document: Viewed
--- NOTE | 2018-12-05 07:29 | ED ---
Progress - Progress Note Progress Note: Patient signed out from Dr. King upon shift change pending sobriety. Course/Dx - Course Course Of Treatment: Pt is a signout from Dr. King pending sobriety. I reevaluated him at 10:30 AM, also at noon. He has been ambulatory, there are no signs of acute withdrawal. He is concerned about impending withdrawal, he does not want to continue to drink. I sent short prescription of Valium to the employee pharmacy here. Also he is referred to [facility], he should see them tomorrow. - Diagnoses Provider Diagnoses: Alcohol intoxication Discharge - Sign-Out/Discharge Documenting (check all that apply): Receiving Sign-Out Receiving patient FROM: Fuentes King - Discharge Plan Prescriptions: Diazepam TAB(*) [Valium TAB(*)] 5 mg PO Q6H PRN #10 tab MDD 4 PRN Reason: Withdrawal - Alcohol Patient Education Materials: Abuse of Alcohol (ED) Referrals: [facility] [Outside] - 1 Day Luc Hartley MD [Primary Care Provider] - 2 Days Additional Instructions: Follow up with primary limit alcohol consumption Return to ED if develop any new or worsening symptoms I've also given you a referral to [facility] for easier access to detox/rehab/ alcohol followup - Attestation Statements Document Initiated by Eliotibe: Yes Documenting Scribe: Kerline Neff Provider For Whom Tahir is Documenting (Include Credential): Dheeraj Almaraz MD. Scribe Attestation: I, Kerline Neff, scribed for Dheeraj Almaraz MD. on 12/05/18 at 1158. Scribe Documentation Reviewed: Yes Provider Attestation: The documentation as recorded by the scribe, Kerline Neff accurately reflects the service I personally performed and the decisions made by me, Dheeraj Almaraz MD. Status of Scribe Document: Viewed
[2018-12-05 12:35] VITALS: BP 143/96
== END 2018-12-05 12:36 | disposition home or self-care (01) ==
LOC: ED 23:31
DX: F10.129 Alcohol abuse with intoxication, unspecified (principal); I10 Essential (primary) hypertension; Z86.73 Personal history of transient ischemic attack (TIA), and cerebral infarction without residual deficits; Z88.0 Allergy status to penicillin; Z87.891 Personal history of nicotine dependence
CPT/HCPCS: 36415; 70450; 80053; 80320; 82140; 83605; 83735; 84484; 85025; 85610; 93005; 99282; G0480

== ENCOUNTER → 2019-01-03 11:01 | Emergency (ER) | payer BC, OTHER ==
[~2019-01-03 11:01] MED LIST: Primidone TAB(*) 250 MG PO ONE; Thiamine IV* 100 MG, Folic Acid IV* 1 MG, Multiple Vitamin IV ADULT* 10 ML in NS 0.9% 1... IV ONE
[2019-01-03 12:15] LABS: ABS Eosinophils 0.1 10^3/ul (0-0.6); ABS Monocytes 0.5 10^3/ul (0-0.8); ABS Neutrophils 4.8 10^3/ul (1.5-7.7); Eosinophil % 1.3 %; Hematocrit 40 % (42-52); Hemoglobin 13.5 g/dL (14.0-18.0); Lymphocyte % 16.1 %; Mean Corpuscular HGB Conc 34 g/dL (31-36); Mean Corpuscular Hemoglobin 32 pg (27-31); Mean Corpuscular Volume 95 fL (80-94); Mean Platelet Volume 7.5 fL (7.4-10.4); Nucleated Red Blood Cells % 0.1; Platelet Count 199 10^3/uL (150-450); Red Blood Count 4.23 10^6 /uL (4.18-5.48); Red Cell Distribution Width 14 % (10.5-15); White Blood Count 6.5 10^3/uL (3.5-10.8)
[2019-01-03 12:20] LABS: INR 0.99 (0.82-1.09)
[2019-01-03 12:29] LABS: Albumin/Globulin Ratio 1.7 (1-3); BUN/Creatinine Ratio 21.9 (8-20); Calcium 8.5 mg/dL (8.6-10.3); EGFR African American 155.4 (>60); EGFR Non-African American 128.5 (>60); Globulin 2.4 g/dL (2-4); Total Bilirubin 0.8 mg/dL (0.2-1.0); Total Protein 6.4 g/dL (6.4-8.9)
--- NOTE | 2019-01-03 13:11 | ED ---
Substance Abuse/Use - HPI Summary HPI Summary: Patient is 58-year-old male presenting to the ED with alcohol intoxication. He was able to call his girlfriend from the hotel room he was staying at found him in the bathtub with a laceration to his right arm and a cut behind his right ear. It was obvious patient fell to the bathtub and possibly hit his head. Patient is a poor historian as he is intoxicated. History of elevated LFTs, essential tremor, jaundice, hypertension. History of severe alcohol abuse 40 years. He was recently checked into a rehabilitation facility, but checked himself out 2 days later. He began drinking immediately following and has been drinking daily since that time. - History Of Current Complaint Chief Complaint: EDSubstanceAbuse Stated Complaint: [id number] PER EMS Time Seen by Provider: 01/03/19 11:03 Hx Obtained From: EMS Ingestion History: Type/Name Of Drug Overdose Characteristics: Oral Timing Of Abuse: Daily Severity Initially: Severe Severity Currently: Severe Aggravating Factor(s): Nothing Alleviating Factor(s): Nothing - Risk Factor(s) Completed Suicide Risk Factors: Negative - Allergies/Home Medications Allergies/Adverse Reactions: Allergies Allergy/AdvReac Type Severity Reaction Status Date / Time amoxicillin Allergy GI Upset Verified 01/03/19 11:07 PMH/Surg Hx/FS Hx/Imm Hx Previously Healthy: Yes Endocrine/Hematology History: Denies: Hx Diabetes, Hx Thyroid Disease Cardiovascular History: Reports: Hx Hypertension - DOES TAKE MEDICATIONS Denies: Hx Pacemaker/ICD Respiratory History: Denies: Hx Asthma, Hx Chronic Obstructive Pulmonary Disease (COPD) GI History: Denies: Hx Ulcer History: Denies: Hx Renal Disease Sensory History: Reports: Hx Contacts or Glasses Denies: Hx Hearing Aid Opthamlomology History: Reports: Hx Contacts or Glasses Psychiatric History: Denies: Hx Panic Disorder - Surgical History Surgery Procedure, Year, and Place: EUF SCAN OF PANCREAS AND LIVER (LAP); - Immunization History Date of Tetanus Vaccine: UTD Date of Influenza Vaccine: NO Infectious Disease History: No Infectious Disease History: Denies: Hx Hepatitis, Hx Human Immunodeficiency Virus (HIV), Traveled Outside the [place] in Last 30 Days - Family History Known Family History: Positive: Hypertension - Social History Occupation: Unemployed Lives: Alone Alcohol Use: Daily Alcohol Amount: Unk exact amount of daily ETOH Hx Substance Use: No Substance Use Type: Reports: None Hx Tobacco Use: No Smoking Status (MU): Unknown if Ever Smoked Review of Systems Constitutional: Negative Negative: Fever, Chills, Fatigue, Skin Diaphoresis Negative: Blurred Vision, Diplopia, Drainage, Erythema - non-icteric Negative: Palpitations, Chest Pain Genitourinary: Negative Positive: no symptoms reported, see HPI Negative: Arthralgia, Myalgia Positive: Other - abrasion to the R forearm Neurological: Negative All Other Systems Reviewed And Are Negative: Yes Physical Exam Triage Information Reviewed: Yes Vital Signs On Initial Exam: Initial Vitals Temp Pulse Resp BP Pulse Ox 98.3 F 75 16 110/89 94 01/03/19 11:03 01/03/19 11:03 01/03/19 11:03 01/03/19 11:03 01/03/19 11:03 Vital Signs Reviewed: Yes Completion Of Physical Exam Limited Due To: Altered Mental Status Appearance: Positive: Ill-Appearing Skin: Positive: Warm, Skin Color Reflects Adequate Perfusion Head/Face: Positive: Normal Head/Face Inspection Eyes: Positive: EOMI, Conjunctiva Clear Neck: Positive: No Lymphadenopathy Respiratory/Lung Sounds: Positive: Clear to Auscultation Cardiovascular: Positive: Pulses are Symmetrical in both Upper and Lower Extremities Abdomen Description: Positive: Nontender, No Organomegaly, Soft Bowel Sounds: Positive: Present Musculoskeletal: Positive: Strength/ROM Intact Neurological: Positive: Slurred Speech, Other - patient not oriented to place or time Psychiatric: Positive: Other - denies si/hi AVPU Assessment: Alert Diagnostics - Vital Signs Vital Signs Temp Pulse Resp BP Pulse Ox 01/03/19 11:46 97 01/03/19 11:23 80 127/71 95 01/03/19 11:21 78 97 01/03/19 11:03 98.3 F 75 16 110/89 94 - Laboratory Lab Results: Lab Results 01/03/19 01/03/19 01/03/19 Range/Units 12:03 12:03 12:03 WBC 6.5 (3.5-10.8) 10^3/uL RBC 4.23 (4.18-5.48) 10^6 /uL Hgb 13.5 L (14.0-18.0) g/dL Hct 40 L (42-52) % MCV 95 H (80-94) fL MCH 32 H (27-31) pg MCHC 34 (31-36) g/dL RDW 14 (10.5-15) % Plt Count 199 (150-450) 10^3/uL MPV 7.5 (7.4-10.4) fL Neut % (Auto) 73.9 % Lymph % (Auto) 16.1 % [place] % (Auto) 8.2 % Eos % (Auto) 1.3 % Baso % (Auto) 0.5 % Absolute Neuts (auto) 4.8 (1.5-7.7) 10^3/ul Absolute Lymphs (auto) 1.0 (1.0-4.8) 10^3/ul Absolute Monos (auto) 0.5 (0-0.8) 10^3/ul Absolute Eos (auto) 0.1 (0-0.6) 10^3/ul Absolute Basos (auto) 0.0 (0-0.2) 10^3/ul Absolute Nucleated RBC 0.0 10^3/ul Nucleated RBC % 0.1 INR (Anticoag Therapy) 0.99 (0.82-1.09) Sodium 139 (135-145) mmol/L Potassium 4.0 (3.5-5.0) mmol/L Chloride 101 (101-111) mmol/L Carbon Dioxide 28 (22-32) mmol/L Anion Gap 10 (2-11) mmol/L BUN 14 (6-24) mg/dL Creatinine 0.64 L (0.67-1.17) mg/dL Est GFR ( Amer) 155.4 (>60) Est GFR (Non-Af Amer) 128.5 (>60) BUN/Creatinine Ratio 21.9 H (8-20) Glucose 140 H (70-100) mg/dL Lactic Acid (0.5-2.0) mmol/L Calcium 8.5 L (8.6-10.3) mg/dL Total Bilirubin 0.80 (0.2-1.0) mg/dL AST 56 H (13-39) U/L ALT 36 (7-52) U/L Alkaline Phosphatase 119 H (34-104) U/L Ammonia (16-53) mcmol/L Troponin I 0.00 (<0.04) ng/mL Total Protein 6.4 (6.4-8.9) g/dL Albumin 4.0 (3.2-5.2) g/dL Globulin 2.4 (2-4) g/dL Albumin/Globulin Ratio 1.7 (1-3) Serum Alcohol Pending 01/03/19 01/03/19 Range/Units 12:03 12:03 WBC (3.5-10.8) 10^3/uL RBC (4.18-5.48) 10^6 /uL Hgb (14.0-18.0) g/dL Hct (42-52) % MCV (80-94) fL MCH (27-31) pg MCHC (31-36) g/dL RDW (10.5-15) % Plt Count (150-450) 10^3/uL MPV (7.4-10.4) fL Neut % (Auto) % Lymph % (Auto) % [place] % (Auto) % Eos % (Auto) % Baso % (Auto) % Absolute Neuts (auto) (1.5-7.7) 10^3/ul Absolute Lymphs (auto) (1.0-4.8) 10^3/ul Absolute Monos (auto) (0-0.8) 10^3/ul Absolute Eos (auto) (0-0.6) 10^3/ul Absolute Basos (auto) (0-0.2) 10^3/ul Absolute Nucleated RBC 10^3/ul Nucleated RBC % INR (Anticoag Therapy) (0.82-1.09) Sodium (135-145) mmol/L Potassium (3.5-5.0) mmol/L Chloride (101-111) mmol/L Carbon Dioxide (22-32) mmol/L Anion Gap (2-11) mmol/L BUN (6-24) mg/dL Creatinine (0.67-1.17) mg/dL Est GFR ( Amer) (>60) Est GFR (Non-Af Amer) (>60) BUN/Creatinine Ratio (8-20) Glucose (70-100) mg/dL Lactic Acid 2.5 H* (0.5-2.0) mmol/L Calcium (8.6-10.3) mg/dL Total Bilirubin (0.2-1.0) mg/dL AST (13-39) U/L ALT (7-52) U/L Alkaline Phosphatase (34-104) U/L Ammonia 77 H (16-53) mcmol/L Troponin I (<0.04) ng/mL Total Protein (6.4-8.9) g/dL Albumin (3.2-5.2) g/dL Globulin (2-4) g/dL Albumin/Globulin Ratio (1-3) Serum Alcohol Result Diagrams: 01/03/19 12:03 01/03/19 12:03 Lab Statement: Any lab studies that have been ordered have been reviewed, and results considered in the medical decision making process. Course/Dx - Course Course Of Treatment: Patient is evaluated for alcohol intoxication and fall. He has a history of multiple falls secondary to alcoholism and alcohol intoxication. On physical examination, patient appears intoxicated and is unable to give us a history. He denies any pain or concerns. He states he feels well. He does endorse some fatigue. On physical examination: Patient appears intoxicated, laceration to the right forearm which is approximately 3 cm in length and is very superficial. Small abrasion behind the right ear. No other signs of trauma. Cleansed wounds thoroughly. CT brain obtained which shows no acute intracranial abnormalities which are new, however has a hypodensity in the left basal ganglia likely residual from prior intraparenchymal hematoma and is unchanged from December 05, 2018. No acute changes are noted. Labs are obtained are fairly WNL for patient. Ammonia high at 77, this is also consistent with patient's previous. EtOH 423. Patient is signed out to Camilo Louise PA-C pending alcohol level. - Diagnoses Differential Diagnosis/HQI/PQRI: Positive: Alcohol Abuse, Alcohol Withdrawal Provider Diagnoses: Alcohol intoxication Discharge - Sign-Out/Discharge Documenting (check all that apply): Sign-Out Patient Signing out patient TO: Camilo Louise Patient Received Moderate/Deep Sedation with Procedure: No - Discharge Plan Condition: Fair Referrals: Luc Hartley MD [Primary Care Provider] - - Billing Disposition and Condition Condition: FAIR
[2019-01-03 14:09] LABS: Urine Appearance Clear; Urine Bilirubin Negative (Negative); Urine Blood Negative (Negative); Urine Color Yellow; Urine Glucose Negative (Negative); Urine Ketones Negative (Negative); Urine Nitrite Negative (Negative); Urine Protein Negative (Negative); Urine Specific Gravity 1.015 (1.010-1.030); Urine Urobilinogen Negative (Negative)
--- NOTE | 2019-01-03 23:39 | PN ---
Progress Note - Progress Note Date of Service: 01/03/19 Note: Patient evaluated at 23:30 on 01/03/19. Clinically sober. Patient able to answer questions coherently and clearly. No evidence of withdrawal symptoms including diaphoresis, N/V, agitation, tremors. Vital signs within normal limits. Patient will be discharged home in stable condition with diagnosis of alcohol abuse.
[2019-01-04 00:25] VITALS: BP 142/81
== END | disposition home or self-care (01) ==
LOC: ED 11:01
DX: F10.229 Alcohol dependence with intoxication, unspecified (principal); I10 Essential (primary) hypertension; S51.811A Laceration without foreign body of right forearm, initial encounter; W01.198A Fall on same level from slipping, tripping and stumbling with subsequent striking against other object, initial encounter; Y92.9 Unspecified place or not applicable; Z88.0 Allergy status to penicillin; S00.411A Abrasion of right ear, initial encounter; Y90.8 Blood alcohol level of 240 mg/100 ml or more
CPT/HCPCS: 36415; 70450; 80053; 80320; 81003; 82140; 83605; 84484; 85025; 85610; 93005; 96360; 96361; 99283; G0480; J3411

== ENCOUNTER 2019-02-23 16:19 | Inpatient (IN) | payer BC ==
[2019-02-23 18:41] LABS: ABS Eosinophils 0.1 10^3/ul (0-0.6); ABS Lymphocytes 0.7 10^3/ul (1.0-4.8); ABS Monocytes 0.7 10^3/ul (0-0.8); ABS Neutrophils 4.8 10^3/ul (1.5-7.7); Eosinophil % 1.5 %; Hematocrit 37 % (42-52); Lymphocyte % 11.5 %; Mean Corpuscular HGB Conc 35 g/dL (31-36); Mean Corpuscular Hemoglobin 35 pg (27-31); Mean Corpuscular Volume 99 fL (80-94); Mean Platelet Volume 7.3 fL (7.4-10.4); Platelet Count 115 10^3/uL (150-450); Red Blood Count 3.78 10^6 /uL (4.18-5.48); Red Cell Distribution Width 16 % (10-15); White Blood Count 6.4 10^3/uL (3.5-10.8)
[2019-02-23 18:55] LABS: Activated Partial Thrombo Time 31.2 seconds (26.0-38.0)
[2019-02-23 19:02] LABS: Albumin 3.7 g/dL (3.2-5.2); Albumin/Globulin Ratio 1.7 (1-3); BUN/Creatinine Ratio 15.1 (8-20); Calcium 8.5 mg/dL (8.6-10.3); EGFR African American 133.5 (>60); EGFR Non-African American 110.4 (>60); Globulin 2.2 g/dL (2-4); Potassium 4.3 mmol/L (3.5-5.0); Total Bilirubin 0.6 mg/dL (0.2-1.0); Total Protein 5.9 g/dL (6.4-8.9)
[2019-02-23] MEDS ORDERED: Iohexol 300* (CONTRAST) 10 ML SDV IV ONE (20:15)
[2019-02-23] MEDS ORDERED: LORazepam TAB(*) 1 MG PO ONE ×2 (20:53→22:20)
[2019-02-23] MEDS ORDERED: Primidone TAB(*) 250 MG PO ONE (20:54)
[2019-02-23] MEDS ORDERED: Ibuprofen TAB* 600 MG PO ONE (21:35)
[2019-02-23] MEDS ORDERED: Thiamine IV* 100 MG, Folic Acid IV* 1 MG, Multiple Vitamin IV ADULT* 10 ML in NS 0.9% 1... IV ONE (22:07)
--- NOTE | 2019-02-23 22:27 | ED ---
Complex/Multi-Sys Presentation - HPI Summary HPI Summary: Patient complains of epistaxis, swelling and pain to nose status post mechanical fall today. Patient states he was walking up his steep driveway and lost his balance and fell on his face. Denies any other pain, injury or symptoms. Patient ambulates with cane at baseline. Chronic EtOH. Patient's friend is present, states patient also fell 2 weeks ago and has large area of ecchymosis on left side. Patient denies LOC, N/V, vision change, MENDOZA, anti-coag , dizziness, fever, cough, sore throat, CP, SOB, N/V/D, abdominal pain, change in urine, change in BM. Patient states last drink last night. - History Of Current Complaint Chief Complaint: EDFacialInjury Time Seen by Provider: 02/23/19 18:34 Hx Obtained From: Patient, Family/Manager Technical Support Onset/Duration: Sudden Onset Timing: Constant Severity Currently: Moderate Severity Initially: Moderate Character: Throbbing Associated Signs And Symptoms: Positive: Recent Trauma - Allergies/Home Medications Allergies/Adverse Reactions: Allergies Allergy/AdvReac Type Severity Reaction Status Date / Time amoxicillin Allergy GI Upset Verified 01/03/19 11:07 Home Medications: Home Medications Loteprednol Etabonate [Alrex] 1 drop BOTH EYES DAILY 02/23/19 [History Confirmed 02/23/19] Propranolol TAB* [Inderal TAB*] 20 mg PO QID PRN 02/23/19 [History Confirmed ] Tadalafil 1 tab PO SEE INSTRUCTIONS PRN 02/23/19 [History Confirmed 02/23/19] Testosterone Cypionate (NF) 1 ml IM WEEKLY 02/23/19 [History Confirmed 02/23/19] diazePAM [Diazepam] 5 mg PO QID PRN 02/23/19 [History Confirmed 02/23/19] PMH/Surg Hx/FS Hx/Imm Hx Endocrine/Hematology History: Denies: Hx Diabetes, Hx Thyroid Disease Cardiovascular History: Reports: Hx Hypertension - DOES TAKE MEDICATIONS Denies: Hx Pacemaker/ICD Respiratory History: Denies: Hx Asthma, Hx Chronic Obstructive Pulmonary Disease (COPD) GI History: Denies: Hx Ulcer History: Denies: Hx Renal Disease Sensory History: Reports: Hx Contacts or Glasses Denies: Hx Hearing Aid Opthamlomology History: Reports: Hx Contacts or Glasses Psychiatric History: Denies: Hx Panic Disorder - Surgical History Surgery Procedure, Year, and Place: EUF SCAN OF PANCREAS AND LIVER (LAP); - Immunization History Date of Tetanus Vaccine: UTD Date of Influenza Vaccine: NO Infectious Disease History: No Infectious Disease History: Denies: Hx Hepatitis, Hx Human Immunodeficiency Virus (HIV), Traveled Outside the [place] in Last 30 Days - Family History Known Family History: Positive: Hypertension - Social History Alcohol Use: Daily Alcohol Amount: Unk exact amount of daily ETOH Hx Substance Use: No Substance Use Type: Reports: None Hx Tobacco Use: No Smoking Status (MU): Never Smoked Tobacco Review of Systems Constitutional: Negative Eyes: Negative Positive: Epistaxis Cardiovascular: Negative Respiratory: Negative Gastrointestinal: Negative Genitourinary: Negative Musculoskeletal: Negative Skin: Negative Neurological: Negative Psychological: Normal All Other Systems Reviewed And Are Negative: Yes Physical Exam - Summary Physical Exam Summary: Obvious swelling to nose. No septal hematomas bilaterally. No other trauma noted to mouth, face, head. Full range of motion of jaw and neck. No pain with palpation of neck, back, chest wall, abdomen. Patient moves all 4 extremities freely without any indication of pain. Pain with palpation of left lateral chest wall. Extensive area of ecchymosis along left side. Patient states history of recent fall 2 weeks ago where he fell on the edge of the bathtub. Neuro exam normal. Patient alert and oriented. No diaphoresis or anxiety noted. No obvious symptoms of withdrawal. Triage Information Reviewed: Yes Vital Signs On Initial Exam: Initial Vitals Temp Pulse Resp BP Pulse Ox 98.6 F 67 18 111/70 98 02/23/19 16:26 02/23/19 16:26 02/23/19 16:26 02/23/19 16:26 02/23/19 16:26 Vital Signs Reviewed: Yes Appearance: Positive: Well-Appearing Skin: Positive: Warm Head/Face: Positive: Normal Head/Face Inspection Eyes: Positive: Normal ENT: Positive: Normal ENT inspection Dental: Negative: Dental Fracture @, Bleeding Neck: Positive: Supple Respiratory/Lung Sounds: Positive: Clear to Auscultation Cardiovascular: Positive: Normal Abdomen Description: Positive: Nontender Musculoskeletal: Positive: Normal Neurological: Positive: Normal Psychiatric: Positive: Normal AVPU Assessment: Alert - [place] Coma Scale Best Eye Response: 4 - Spontaneous Best Motor Response: 6 - Obeys Commands Best Verbal Response: 5 - Oriented Coma Scale Total: 15 Diagnostics - Vital Signs Vital Signs Temp Pulse Resp BP Pulse Ox 02/23/19 21:56 68 16 129/80 95 02/23/19 21:12 20 02/23/19 16:26 98.6 F 67 18 111/70 98 - Laboratory Lab Results: Lab Results 02/23/19 02/23/19 02/23/19 Range/Units 18:33 18:33 18:33 WBC 6.4 (3.5-10.8) 10^3/uL RBC 3.78 L (4.18-5.48) 10^6 /uL Hgb 13.0 L (14.0-18.0) g/dL Hct 37 L (42-52) % MCV 99 H (80-94) fL MCH 35 H (27-31) pg MCHC 35 (31-36) g/dL RDW 16 H (10-15) % Plt Count 115 L (150-450) 10^3/uL MPV 7.3 L (7.4-10.4) fL Neut % (Auto) 75.6 % Lymph % (Auto) 11.5 % [place] % (Auto) 10.9 % Eos % (Auto) 1.5 % Baso % (Auto) 0.5 % Absolute Neuts (auto) 4.8 (1.5-7.7) 10^3/ul Absolute Lymphs (auto) 0.7 L (1.0-4.8) 10^3/ul Absolute Monos (auto) 0.7 (0-0.8) 10^3/ul Absolute Eos (auto) 0.1 (0-0.6) 10^3/ul Absolute Basos (auto) 0.0 (0-0.2) 10^3/ul Absolute Nucleated RBC 0.0 10^3/ul Nucleated RBC % 0.0 APTT 31.2 (26.0-38.0) seconds Sodium 139 (135-145) mmol/L Potassium 4.3 (3.5-5.0) mmol/L Chloride 104 (101-111) mmol/L Carbon Dioxide 28 (22-32) mmol/L Anion Gap 7 (2-11) mmol/L BUN 11 (6-24) mg/dL Creatinine 0.73 (0.67-1.17) mg/dL Est GFR ( Amer) 133.5 (>60) Est GFR (Non-Af Amer) 110.4 (>60) BUN/Creatinine Ratio 15.1 (8-20) Glucose 94 (70-100) mg/dL Lactic Acid (0.5-2.0) mmol/L Calcium 8.5 L (8.6-10.3) mg/dL Total Bilirubin 0.60 (0.2-1.0) mg/dL AST 425 H (13-39) U/L ALT 276 H (7-52) U/L Alkaline Phosphatase 362 H (34-104) U/L Total Protein 5.9 L (6.4-8.9) g/dL Albumin 3.7 (3.2-5.2) g/dL Globulin 2.2 (2-4) g/dL Albumin/Globulin Ratio 1.7 (1-3) 07/18/19 Range/Units 18:33 WBC (3.5-10.8) 10^3/uL RBC (4.18-5.48) 10^6 /uL Hgb (14.0-18.0) g/dL Hct (42-52) % MCV (80-94) fL MCH (27-31) pg MCHC (31-36) g/dL RDW (10-15) % Plt Count (150-450) 10^3/uL MPV (7.4-10.4) fL Neut % (Auto) % Lymph % (Auto) % [place] % (Auto) % Eos % (Auto) % Baso % (Auto) % Absolute Neuts (auto) (1.5-7.7) 10^3/ul Absolute Lymphs (auto) (1.0-4.8) 10^3/ul Absolute Monos (auto) (0-0.8) 10^3/ul Absolute Eos (auto) (0-0.6) 10^3/ul Absolute Basos (auto) (0-0.2) 10^3/ul Absolute Nucleated RBC 10^3/ul Nucleated RBC % APTT (26.0-38.0) seconds Sodium (135-145) mmol/L Potassium (3.5-5.0) mmol/L Chloride (101-111) mmol/L Carbon Dioxide (22-32) mmol/L Anion Gap (2-11) mmol/L BUN (6-24) mg/dL Creatinine (0.67-1.17) mg/dL Est GFR ( Amer) (>60) Est GFR (Non-Af Amer) (>60) BUN/Creatinine Ratio (8-20) Glucose (70-100) mg/dL Lactic Acid 1.6 (0.5-2.0) mmol/L Calcium (8.6-10.3) mg/dL Total Bilirubin (0.2-1.0) mg/dL AST (13-39) U/L ALT (7-52) U/L Alkaline Phosphatase (34-104) U/L Total Protein (6.4-8.9) g/dL Albumin (3.2-5.2) g/dL Globulin (2-4) g/dL Albumin/Globulin Ratio (1-3) Result Diagrams: 02/23/19 18:33 02/23/19 18:33 Lab Statement: Any lab studies that have been ordered have been reviewed, and results considered in the medical decision making process. Complex Multi-Symp Course/Dx Course Of Treatment: Patient complains of epistaxis, swelling and pain to nose status post mechanical fall today. Patient states he was walking up his steep driveway and lost his balance and fell on his face. Denies any other pain, injury or symptoms. Patient ambulates with cane at baseline. Chronic EtOH. Patient's friend is present, states patient also fell 2 weeks ago and has large area of ecchymosis on left side. Patient denies LOC, N/V, vision change, MENDOZA, anti-coag, dizziness, fever, cough, sore throat, CP, SOB, N/V/D, abdominal pain , change in urine, change in BM. Patient states last drink last night. Vital signs within normal limits. Labs at patient baseline except for Elevated liver enzymes consistent with alcoholic hepatitis. Labs otherwise within normal limits or at patient baseline. Patient has history of essential tremor, however there appear to be mild withdrawal symptoms developing during stay here in the ED.. 2 mg of Ativan by mouth. CT chest abdomen and pelvis positive for chronic right ninth rib fracture, chronic eighth 1910 rib fractures. Possible acute left 11th rib and right ninth 10th and 11th rib fractures. Acute avulsion fractures involving the right L1, L2, L3 and L4 transverse processes. Acute appearing mild compression fracture deformity involving the superior endplate of the L5 vertebral body limited the anterior column. Admitted to hospitalist for further management. - Diagnoses Provider Diagnoses: Lumbar transverse process fracture, Ribs, multiple fractures, Vertebral compression fracture, Nasal bone fracture, Alcoholic hepatitis, Chronic alcohol abuse, Recurrent falls Discharge - Sign-Out/Discharge Documenting (check all that apply): Patient Departure Patient Received Moderate/Deep Sedation with Procedure: No - Discharge Plan Condition: Fair Disposition: ADMITTED TO [facility] Referrals: Luc Hartley MD [Primary Care Provider] - - Billing Disposition and Condition Condition: FAIR Disposition: Admitted to [facility]
[2019-02-23 22:28] LABS: INR 0.89 (0.82-1.09)
[2019-02-23 23:08] LABS: Hepatitis B Surface Antigen Negative (Negative)
[2019-02-23 23:25] LABS: Hepatitis C Antibody Negative (Negative)
[2019-02-24] MEDS ORDERED: Lorazepam PYXIS KEY PRN (01:12)
[2019-02-24] MEDS ORDERED: LORazepam INJ* 2 MG/ML 1 ML VIAL IV ONE (01:12)
[2019-02-24] MEDS ORDERED: Lorazepam PYXIS KEY ONE (01:17)
[2019-02-24] MEDS ORDERED: Acetaminophen TAB* 325 MG PO PRN (02:18)
[2019-02-24] MEDS ORDERED: Thiamine IV* 100 MG/ML 2 ML VIAL IM ONE (02:18)
--- NOTE | 2019-02-24 04:05 | HP ---
CC: Dr. Luc Hartley * ADMISSION HISTORY AND PHYSICAL: DATE OF ADMISSION: 02/24/19 CHIEF COMPLAINT: Fall. HISTORY OF PRESENT ILLNESS: This is a 58-year-old gentleman with past medical history of chronic alcohol abuse, alcoholic hepatitis, cholestasis, history of pseudocyst in the pancreas, essential tremor, hypogonadism, hypertension, previous admission for hepatic encephalopathy, on lactulose, history of hemorrhagic stroke, came in today due to fall. The patient has been having multiple falls and still actively drinks alcohol today. He went on a sailing trip and throughout the day he drank multiple beverages. He could not recall the number of drinks he has had today. He was going up a hill with his bag and his cane on the other hand and all of a sudden he lost his balance and fell, could not really break his fall with his hands, so he hit his face and came into the ER with severe pain in the face area. The patient was complaining of pain right around the nasal area and swelling. Denies any shortness of breath. He also has some pain and bruising on the left rib and left flank area. PAST MEDICAL HISTORY: As mentioned, he has had history of chronic alcohol abuse , alcoholic hepatitis, cholestasis, pseudocyst on the pancreas, essential tremor , hypogonadism, hypertension, previously treated tuberculosis exposure with isoniazid, history of hepatic encephalopathy, status post lactulose usage, history of hemorrhagic stroke without any residual defect at this point. PAST SURGICAL HISTORY: Had an endoscopic ultrasound of his pancreas to evaluate his pseudocyst. HOME MEDICATIONS: The patient is on: 1. Tadalafil 1 tablet p.r.n. 2. Alrex drop, 1 drop both eyes daily. 3. Testosterone 1 mL IM injection weekly. 4. Valium 5 mg oral every 6 hours p.r.n. for anxiety. 5. Propranolol 20 mg 4 times a day for anxiety. 6. Amlodipine 10 mg oral daily. 7. Labetalol 100 mg oral p.o. b.i.d. 8. Folic acid 800 mcg oral daily. 9. Rifaximin 550 mg oral p.o. b.i.d. 10. Propranolol 120 mg oral daily every morning. 11. Mysoline 250 mg oral 3 times a day. ALLERGIES: The patient is documented to have allergies to AMOXICILLIN. FAMILY HISTORY: Noncontributory. SOCIAL HISTORY: The patient is a heavy alcohol use. Denies any other smoking or drug use. Lives with his ex-fiancee because they both share the home and he is currently retired. PHYSICAL EXAMINATION GENERAL: The patient is awake, alert, oriented to time, place, and person. VITAL SIGNS: In the ER, temperature was documented at 98.6, BP was noted to be 135/75, heart rate 80, respiratory rate 20, saturating 100% on room air. HEAD AND NECK: The patient had severe traumatic changes to the face with nasal swelling. He had a nasal trumpet on his right nostril to block any bleeding. He does have periorbital hematoma on both eyes. Neck supple. No jugular venous distention. LUNGS: Clear to auscultation bilaterally. No wheezing, rhonchi, rales. HEART: S1, S2. Regular rate and rhythm. ABDOMEN: Revealed a large ecchymotic area on the left lateral abdomen and there was even the left lateral rib showed ecchymotic regions but otherwise abdomen was soft, nontender. EXTREMITIES: No cyanosis, clubbing, or edema. DIAGNOSTIC STUDIES/LAB DATA: CBC was remarkable for mildly decreased hemoglobin at 13.0. Platelet count was minimally decreased at 115,000. Coagulation profile was within normal limits. Comprehensive metabolic panel shows elevated AST at 425 and ALT elevated at 276. Alkaline phosphatase elevated at 362. Toxicology shows serum alcohol level of 236. Serum hepatitis panel were noted to be all nonreactive and negative. CT maxillofacial shows comminuted nasal bone fracture. The nasolacrimal ducts are intact. Fractured bony nasal septum with no large nasal septum hematoma, soft tissue swelling above the nasal bridge and left periorbital structures. CT brain without contrast was negative for any intracranial hemorrhage or other acute intracranial process. Involutional change, unchanged findings of degree of density at the posterior aspect of the left basal ganglia, which corresponds to previous parenchymal hematoma from October 2018. CT chest showed chronic appearing right ninth rib fracture, also chronic appearing left 10th, ninth, and eighth rib fracture. There is possible acute fracture involving the posterior aspect of the 11th left rib and posterior aspect of the right 11th, 10th, and ninth ribs. There was also evidence of acute avulsion fracture involving the right L1, L2, L3, L4 transverse processes and also acute appearing mild compression fracture deformity involving the superior end-plate of the L5 vertebral body limited to the anterior column. Rest of the abdominal structures were noted to be within normal limits. IMPRESSION: This is a 58-year-old gentleman with alcohol abuse with alcoholic hepatitis and previous intracranial hemorrhage, here due to accidental fall and multiple fractures including lumbar region compression fracture and end-plate fracture and rib fracture and nasal septal fracture. 1. Nasal septal fracture: We will consult ENT to evaluate the patient to see if the patient would benefit from any surgical correction. 2. Lumbar regional fracture: We will get PT evaluation. Currently, the patient does not seem to have any neurological deficits. If the patient develops any deficit or has severe pain in the lumbar region, we can consider Interventional Radiology regarding any kyphoplasty treatment for the compression fracture. 3. Rib fracture: Continue with analgesics as needed. 4. History of alcohol abuse. Start the patient on WAM protocol and the patient has been advised to reduce his alcohol intake. We will follow up LFTs. 5. History of hypertension: I will restart home medication. 6. DVT prophylaxis with sequential compression device. [id number]/[facility] #: [id number] [place]
[2019-02-24] MEDS: Multivitamins/Minerals TAB PO SCH (08:00)
[2019-02-24] MEDS: Folic Acid TAB* 1 MG PO SCH (08:00)
[2019-02-24] MEDS: Propranolol LA CAP* 60 MG PO SCH (08:00)
[2019-02-24] MEDS: amLODIPine TAB* 5 MG PO SCH (08:00)
[2019-02-24] MEDS: RiFAXimin* 550 MG TAB PO SCH ×2 (08:00→22:39)
[2019-02-24] MEDS: Thiamine TAB* 100 MG TAB PO SCH (08:00)
[2019-02-24] MEDS: Primidone TAB(*) 250 MG PO SCH ×3 (08:01→22:35)
[2019-02-24] MEDS: LORazepam TAB(*) 1 MG PO SCH ×3 (08:07→22:37)
[2019-02-24] MEDS: LOTEPREDNOL ETABONATE BOTH EYES SCH (08:13)
[2019-02-24] MEDS: Ibuprofen TAB* 400 MG PO PRN ×2 (15:15→22:39)
--- NOTE | 2019-02-24 15:26 | PN ---
Subjective Date of Service: 02/24/19 Interval History: Patient seen today, in chair, complaining of facial pain post fall and trauma. He did require one dose of ativan this morning for withdrawal. complains of chest pain related to his rib fracture. Past Medical History: Unchanged from Admission Objective Active Medications: Acetaminophen (Tylenol Tab*) 650 mg PO Q4H PRN PRN Reason: PAIN Amlodipine Besylate (Norvasc Tab*) 10 mg PO DAILY [facility] Last Admin: 02/24/19 08:00 Dose: 10 mg Folic Acid (Folvite Tab*) 1 mg PO DAILY [facility] Last Admin: 02/24/19 08:00 Dose: 1 mg Ibuprofen (Motrin Tab*) 400 mg PO Q6H PRN PRN Reason: PAIN Last Admin: 02/24/19 15:15 Dose: 400 mg Lorazepam (Ativan Tab(*)) 0 - 6 mg PO .PER [facility] PROTOCOL [facility]; Protocol Last Admin: 02/24/19 08:07 Dose: 2 mg Miscellaneous (Ativan Pyxis Carranza) 1 ea N/A .ATIVAN IV CARRANZA PRN PRN Reason: PYXIS CARRANZA Multivitamins/Minerals (Theragran/Minerals Tab*) 1 tab PO DAILY [facility] Last Admin: 02/24/19 08:00 Dose: 1 tab Non-Formulary Medication (Loteprednol Etabonate [Alrex]) 1 drop BOTH EYES DAILY [facility] Last Admin: 02/24/19 08:13 Dose: Not Given Primidone (Mysoline Tab(*)) 250 mg PO TID [facility] Last Admin: 02/24/19 15:15 Dose: 250 mg Propranolol HCl (Inderal La Cap*) 120 mg PO QAM [facility] Last Admin: 02/24/19 08:00 Dose: 120 mg Rifaximin (Xifaxan*) 550 mg PO BID [facility] Last Admin: 02/24/19 08:00 Dose: 550 mg Thiamine HCl (Vitamin B-1 Tab*) 100 mg PO DAILY [facility] Last Admin: 02/24/19 08:00 Dose: 100 mg Vital Signs - 8 hr 02/24/19 02/24/19 02/24/19 08:00 08:07 10:00 Temperature 97.9 F 97.7 F Pulse Rate 77 68 Respiratory 16 18 16 Rate Blood Pressure 149/93 128/65 (mmHg) O2 Sat by Pulse 100 98 Oximetry 02/24/19 02/24/19 10:47 12:00 Temperature 97.7 F Pulse Rate 71 Respiratory 16 16 Rate Blood Pressure 158/77 (mmHg) O2 Sat by Pulse 100 Oximetry Appearance: bilateral periorbital edema and ecchymosis. nasal septum fracture. EOMI Ears/Nose/Mouth/Throat: NL Teeth, Lips, Gums, Mucous Membranes Moist Neck: Trachea Midline Respiratory: Symmetrical Chest Expansion and Respiratory Effort, Clear to Auscultation Cardiovascular: NL Sounds; No Murmurs; No JVD, - - left chest wall tenderness Abdominal: NL Sounds; No Tenderness; No Distention Neurological: Alert and Oriented x 3 Result Diagrams: 02/23/19 18:33 02/23/19 18:33 Additional Lab and Data: Lab Results 02/23/19 02/23/19 02/23/19 Range/Units 18:33 18:33 18:33 WBC 6.4 (3.5-10.8) 10^3/uL RBC 3.78 L (4.18-5.48) 10^6 /uL Hgb 13.0 L (14.0-18.0) g/dL Hct 37 L (42-52) % MCV 99 H (80-94) fL MCH 35 H (27-31) pg MCHC 35 (31-36) g/dL RDW 16 H (10-15) % Plt Count 115 L (150-450) 10^3/uL MPV 7.3 L (7.4-10.4) fL Neut % (Auto) 75.6 % Lymph % (Auto) 11.5 % [place] % (Auto) 10.9 % Eos % (Auto) 1.5 % Baso % (Auto) 0.5 % Absolute Neuts (auto) 4.8 (1.5-7.7) 10^3/ul Absolute Lymphs (auto) 0.7 L (1.0-4.8) 10^3/ul Absolute Monos (auto) 0.7 (0-0.8) 10^3/ul Absolute Eos (auto) 0.1 (0-0.6) 10^3/ul Absolute Basos (auto) 0.0 (0-0.2) 10^3/ul Absolute Nucleated RBC 0.0 10^3/ul Nucleated RBC % 0.0 APTT 31.2 (26.0-38.0) seconds Sodium 139 (135-145) mmol/L Potassium 4.3 (3.5-5.0) mmol/L Chloride 104 (101-111) mmol/L Carbon Dioxide 28 (22-32) mmol/L Anion Gap 7 (2-11) mmol/L BUN 11 (6-24) mg/dL Creatinine 0.73 (0.67-1.17) mg/dL Est GFR ( Amer) 133.5 (>60) Est GFR (Non-Af Amer) 110.4 (>60) BUN/Creatinine Ratio 15.1 (8-20) Glucose 94 (70-100) mg/dL Lactic Acid (0.5-2.0) mmol/L Calcium 8.5 L (8.6-10.3) mg/dL Total Bilirubin 0.60 (0.2-1.0) mg/dL AST 425 H (13-39) U/L ALT 276 H (7-52) U/L Alkaline Phosphatase 362 H (34-104) U/L Total Protein 5.9 L (6.4-8.9) g/dL Albumin 3.7 (3.2-5.2) g/dL Globulin 2.2 (2-4) g/dL Albumin/Globulin Ratio 1.7 (1-3) 07/18/19 Range/Units 18:33 WBC (3.5-10.8) 10^3/uL RBC (4.18-5.48) 10^6 /uL Hgb (14.0-18.0) g/dL Hct (42-52) % MCV (80-94) fL MCH (27-31) pg MCHC (31-36) g/dL RDW (10-15) % Plt Count (150-450) 10^3/uL MPV (7.4-10.4) fL Neut % (Auto) % Lymph % (Auto) % [place] % (Auto) % Eos % (Auto) % Baso % (Auto) % Absolute Neuts (auto) (1.5-7.7) 10^3/ul Absolute Lymphs (auto) (1.0-4.8) 10^3/ul Absolute Monos (auto) (0-0.8) 10^3/ul Absolute Eos (auto) (0-0.6) 10^3/ul Absolute Basos (auto) (0-0.2) 10^3/ul Absolute Nucleated RBC 10^3/ul Nucleated RBC % APTT (26.0-38.0) seconds Sodium (135-145) mmol/L Potassium (3.5-5.0) mmol/L Chloride (101-111) mmol/L Carbon Dioxide (22-32) mmol/L Anion Gap (2-11) mmol/L BUN (6-24) mg/dL Creatinine (0.67-1.17) mg/dL Est GFR ( Amer) (>60) Est GFR (Non-Af Amer) (>60) BUN/Creatinine Ratio (8-20) Glucose (70-100) mg/dL Lactic Acid 1.6 (0.5-2.0) mmol/L Calcium (8.6-10.3) mg/dL Total Bilirubin (0.2-1.0) mg/dL AST (13-39) U/L ALT (7-52) U/L Alkaline Phosphatase (34-104) U/L Total Protein (6.4-8.9) g/dL Albumin (3.2-5.2) g/dL Globulin (2-4) g/dL Albumin/Globulin Ratio (1-3) Assess/Plan/Problems-Billing Assessment: 58 y/o male admitted post fall with nasal bone fracutre, rib fracture secondary to ETOH intoxication and loss of balance. admitted for ETOH intoxication pending withdrawal and pain control - Patient Problems (1) Nasal septum fracture Current Visit: Yes Status: Acute Code(s): S02.2XXA - FRACTURE OF NASAL BONES , INIT ENCNTR FOR CLOSED FRACTURE SNOMED Code(s): 033624216 Comment: - Called and left a message for Dr. Kelly for consult. awaiting call back - I will place him on clindamycin for abx prophylactic. Will change pending ENT recommendations. Allergic to penicillin - Will place him on probiotics (2) Rib fractures Current Visit: Yes Status: Acute Code(s): S22.39XA - FRACTURE OF ONE RIB, UNSP SIDE, INIT FOR CLOS FX SNOMED Code(s): 54523518 Comment: - Fx of lateral 8th and 9th ribs - Ibuprofen for pain, given LFT will D/c his tylenol - Will add incentive spirometer (3) Alcohol abuse Current Visit: No Status: Acute Code(s): F10.10 - ALCOHOL ABUSE, UNCOMPLICATED SNOMED Code(s): 50985769 Comment: - actively drinking - Will need criminal justice social worker; - On CIWA he did require ativan this morning. He will need 24 hrs without benzo before clearing the patient (4) Alcoholic hepatitis Current Visit: No Status: Acute Code(s): K70.10 - ALCOHOLIC HEPATITIS WITHOUT ASCITES SNOMED Code(s): 682041035 Comment: - Will recheck in am. d/c tylenol (5) HTN (hypertension) Current Visit: No Status: Acute Code(s): I10 - ESSENTIAL (PRIMARY) HYPERTENSION SNOMED Code(s): 62250224 Comment: - continue amlodipine and propranolol (6) Essential tremor Current Visit: No Status: Acute Code(s): G25.0 - ESSENTIAL TREMOR SNOMED Code(s): 002277864 Comment: - Continue Ativan and Primidone and propranolol (7) Compression fracture Current Visit: Yes Status: Acute Code(s): YXH6860 - SNOMED Code(s): 544113987 Comment: - L1,L2,L3,L4 acute - Pain control with Motrin - Will get social and production planner scheduler - follow up Physical therapy (8) DVT prophylaxis Current Visit: No Status: Acute Code(s): QVA1007 - SNOMED Code(s): 551309876 Comment: - SCDs only
[2019-02-24] MEDS ORDERED: Clindamycin CAP* 150 MG PO SCH (16:00)
--- NOTE | 2019-02-24 18:26 | CONS ---
CONSULTATION NOTE: DATE OF CONSULT: 02/24/19 REQUESTING PHYSICIAN: Dr. Teague from the hospitalist service. REASON FOR CONSULT: Facial trauma with nasal fracture. HISTORY OF PRESENT ILLNESS: A couple days ago, the patient fell, has had multiple injuries and specifically ENT, landed on his face and sustained nasal fracture based on his maxillofacial CT scan. PHYSICAL EXAM: On examination, he has significant amount of periorbital ecchymosis and edema of his lower lids and cheeks. He has ecchymosis and edema over the bridge of his nose. He has a Band-Aid on it that was taken off and he has a superficial abrasion. Intranasally, he had a cotton pack in the left nostril that was removed. He does not have a septal hematoma, but there is bruising and it appears that the septum has been buckled more posteriorly. DIAGNOSTIC STUDIES: On review of the CT scan, he has significant amount of facial, periorbital, preseptal edema. He has some fluid in the right frontal sinus. His nasal frontal ducts are intact. His orbital rims are intact as are his maxillary bones. He has comminuted fractures of his nasal bones and what appears to be a buckle fracture of his septum. ASSESSMENT: The patient sustained facial trauma with nasal septal fracture. PLAN: Recommendation is at this point he should be treated conservatively with some ice packs and ibuprofen. It is too soon to know whether he will need any type of reductive procedures, which would be closed reduction of the nasal fracture and septum or closed reduction of the nasal fracture with a septoplasty ; septoplasty could be delayed. He should follow up in the office next week and we will make decisions as the edema and ecchymosis go down. [id number]/[facility] #: [id number] [facility] SYSTEMCarolina
[2019-02-24] MEDS: Lactobacillus Acidophilus* 1 TAB PO SCH (22:37)
[2019-02-25] MEDS: LORazepam TAB(*) 1 MG PO SCH ×4 (01:48→21:28)
[2019-02-25] MEDS: Folic Acid TAB* 1 MG PO SCH (08:19)
[2019-02-25] MEDS: Multivitamins/Minerals TAB PO SCH (08:19)
[2019-02-25] MEDS: RiFAXimin* 550 MG TAB PO SCH ×2 (08:19→21:29)
[2019-02-25] MEDS: amLODIPine TAB* 5 MG PO SCH (08:19)
[2019-02-25] MEDS: Thiamine TAB* 100 MG TAB PO SCH (08:20)
[2019-02-25] MEDS: Lactobacillus Acidophilus* 1 TAB PO SCH ×2 (08:20→21:29)
[2019-02-25] MEDS: Propranolol LA CAP* 60 MG PO SCH (08:20)
[2019-02-25] MEDS: Ibuprofen TAB* 400 MG PO PRN ×2 (08:20→17:40)
[2019-02-25] MEDS: Primidone TAB(*) 250 MG PO SCH ×3 (08:21→21:28)
[2019-02-25] MEDS: LOTEPREDNOL ETABONATE BOTH EYES SCH (08:24)
[2019-02-25 08:39] LABS: Albumin 3.5 g/dL (3.2-5.2); Albumin/Globulin Ratio 1.7 (1-3); BUN/Creatinine Ratio 12.5 (8-20); Calcium 8.5 mg/dL (8.6-10.3); EGFR African American 181.3 (>60); EGFR Non-African American 149.9 (>60); Globulin 2.1 g/dL (2-4); Magnesium 1.6 mg/dL (1.9-2.7); Phosphorus 2.9 mg/dL (2.5-5.0); Potassium 3.2 mmol/L (3.5-5.0); Total Protein 5.6 g/dL (6.4-8.9)
[2019-02-25 08:42] LABS: ABS Eosinophils 0.1 10^3/ul (0-0.6); ABS Lymphocytes 0.7 10^3/ul (1.0-4.8); ABS Monocytes 0.6 10^3/ul (0-0.8); ABS Neutrophils 2.4 10^3/ul (1.5-7.7); Eosinophil % 3.6 %; Hematocrit 34 % (42-52); Lymphocyte % 17.2 %; Mean Corpuscular HGB Conc 36 g/dL (31-36); Mean Corpuscular Hemoglobin 34 pg (27-31); Mean Corpuscular Volume 96 fL (80-94); Mean Platelet Volume 8.3 fL (7.4-10.4); Nucleated Red Blood Cells % 0.1; Red Blood Count 3.51 10^6 /uL (4.18-5.48); Red Cell Distribution Width 15 % (10-15); White Blood Count 3.9 10^3/uL (3.5-10.8)
[2019-02-25 09:09] LABS: Platelet Count 78 10^3/uL (150-450)
[2019-02-25] MEDS: Magnesium Oxide TAB* 400 MG PO SCH ×2 (17:40→21:28)
--- NOTE | 2019-02-25 17:42 | PN ---
Subjective Date of Service: 02/25/19 Interval History: patient seen today, he has been going through withdrawal with hypertension, diaphoresis, delirious. He required so far 6 mg of ativan today. Patient seems coherent on my exam this afternoon 5pm but he is still restless at times. Past Medical History: Unchanged from Admission Objective Active Medications: Amlodipine Besylate (Norvasc Tab*) 10 mg PO DAILY [facility] Last Admin: 02/25/19 08:19 Dose: 10 mg Folic Acid (Folvite Tab*) 1 mg PO DAILY [facility] Last Admin: 02/25/19 08:19 Dose: 1 mg Ibuprofen (Motrin Tab*) 400 mg PO Q6H PRN PRN Reason: PAIN Last Admin: 02/25/19 08:20 Dose: 400 mg Lactobacillus Rhamnosus (Lactobacillus Acidophilus*) 1 tab PO BID [facility] Last Admin: 02/25/19 08:20 Dose: 1 tab Lorazepam (Ativan Tab(*)) 0 - 6 mg PO .PER [facility] PROTOCOL [facility]; Protocol Last Admin: 02/25/19 13:10 Dose: 2 mg Magnesium Oxide (Magox 400 Tab*) 800 mg PO BID [facility] Miscellaneous (Ativan Pyxis Carranza) 1 ea N/A .ATIVAN IV CARRANZA PRN PRN Reason: PYXIS CARRANZA Multivitamins/Minerals (Theragran/Minerals Tab*) 1 tab PO DAILY [facility] Last Admin: 02/25/19 08:19 Dose: 1 tab Non-Formulary Medication (Loteprednol Etabonate [Alrex]) 1 drop BOTH EYES DAILY [facility] Last Admin: 02/25/19 08:24 Dose: Not Given Potassium Chloride (Klor Con Er Tab*) 40 meq PO DAILY [facility] Primidone (Mysoline Tab(*)) 250 mg PO TID [facility] Last Admin: 02/25/19 13:12 Dose: 250 mg Propranolol HCl (Inderal La Cap*) 120 mg PO QAM [facility] Last Admin: 02/25/19 08:20 Dose: 120 mg Rifaximin (Xifaxan*) 550 mg PO BID [facility] Last Admin: 02/25/19 08:19 Dose: 550 mg Thiamine HCl (Vitamin B-1 Tab*) 100 mg PO DAILY [facility] Last Admin: 02/25/19 08:20 Dose: 100 mg Vital Signs - 8 hr 02/25/19 02/25/1919 10:00 10:59 12:03 Temperature 97.3 F Pulse Rate 72 Respiratory 18 18 16 Rate Blood Pressure 132/72 (mmHg) O2 Sat by Pulse 97 Oximetry 02/25/19 02/25/19 13:10 16:11 Temperature Pulse Rate Respiratory 18 16 Rate Blood Pressure (mmHg) O2 Sat by Pulse Oximetry Oxygen Devices in Use Now: None Appearance: awake, alert but dioriented to time. Eyes: No Scleral Icterus, - - bilateral periorbital ecchymosis. Ears/Nose/Mouth/Throat: Mucous Membranes Moist Neck: NL Appearance and Movements; NL JVP, Trachea Midline Respiratory: Clear to Auscultation Cardiovascular: NL Sounds; No Murmurs; No JVD, No Edema Abdominal: NL Sounds; No Tenderness; No Distention Result Diagrams: 02/25/19 07:32 02/25/19 07:32 Additional Lab and Data: Lab Results 02/23/19 02/23/19 02/23/19 Range/Units 18:33 18:33 18:33 WBC 6.4 (3.5-10.8) 10^3/uL RBC 3.78 L (4.18-5.48) 10^6 /uL Hgb 13.0 L (14.0-18.0) g/dL Hct 37 L (42-52) % MCV 99 H (80-94) fL MCH 35 H (27-31) pg MCHC 35 (31-36) g/dL RDW 16 H (10-15) % Plt Count 115 L (150-450) 10^3/uL MPV 7.3 L (7.4-10.4) fL Neut % (Auto) 75.6 % Lymph % (Auto) 11.5 % [place] % (Auto) 10.9 % Eos % (Auto) 1.5 % Baso % (Auto) 0.5 % Absolute Neuts (auto) 4.8 (1.5-7.7) 10^3/ul Absolute Lymphs (auto) 0.7 L (1.0-4.8) 10^3/ul Absolute Monos (auto) 0.7 (0-0.8) 10^3/ul Absolute Eos (auto) 0.1 (0-0.6) 10^3/ul Absolute Basos (auto) 0.0 (0-0.2) 10^3/ul Absolute Nucleated RBC 0.0 10^3/ul Nucleated RBC % 0.0 APTT 31.2 (26.0-38.0) seconds Sodium 139 (135-145) mmol/L Potassium 4.3 (3.5-5.0) mmol/L Chloride 104 (101-111) mmol/L Carbon Dioxide 28 (22-32) mmol/L Anion Gap 7 (2-11) mmol/L BUN 11 (6-24) mg/dL Creatinine 0.73 (0.67-1.17) mg/dL Est GFR ( Amer) 133.5 (>60) Est GFR (Non-Af Amer) 110.4 (>60) BUN/Creatinine Ratio 15.1 (8-20) Glucose 94 (70-100) mg/dL Lactic Acid (0.5-2.0) mmol/L Calcium 8.5 L (8.6-10.3) mg/dL Total Bilirubin 0.60 (0.2-1.0) mg/dL AST 425 H (13-39) U/L ALT 276 H (7-52) U/L Alkaline Phosphatase 362 H (34-104) U/L Total Protein 5.9 L (6.4-8.9) g/dL Albumin 3.7 (3.2-5.2) g/dL Globulin 2.2 (2-4) g/dL Albumin/Globulin Ratio 1.7 (1-3) 07/18/19 Range/Units 18:33 WBC (3.5-10.8) 10^3/uL RBC (4.18-5.48) 10^6 /uL Hgb (14.0-18.0) g/dL Hct (42-52) % MCV (80-94) fL MCH (27-31) pg MCHC (31-36) g/dL RDW (10-15) % Plt Count (150-450) 10^3/uL MPV (7.4-10.4) fL Neut % (Auto) % Lymph % (Auto) % [place] % (Auto) % Eos % (Auto) % Baso % (Auto) % Absolute Neuts (auto) (1.5-7.7) 10^3/ul Absolute Lymphs (auto) (1.0-4.8) 10^3/ul Absolute Monos (auto) (0-0.8) 10^3/ul Absolute Eos (auto) (0-0.6) 10^3/ul Absolute Basos (auto) (0-0.2) 10^3/ul Absolute Nucleated RBC 10^3/ul Nucleated RBC % APTT (26.0-38.0) seconds Sodium (135-145) mmol/L Potassium (3.5-5.0) mmol/L Chloride (101-111) mmol/L Carbon Dioxide (22-32) mmol/L Anion Gap (2-11) mmol/L BUN (6-24) mg/dL Creatinine (0.67-1.17) mg/dL Est GFR ( Amer) (>60) Est GFR (Non-Af Amer) (>60) BUN/Creatinine Ratio (8-20) Glucose (70-100) mg/dL Lactic Acid 1.6 (0.5-2.0) mmol/L Calcium (8.6-10.3) mg/dL Total Bilirubin (0.2-1.0) mg/dL AST (13-39) U/L ALT (7-52) U/L Alkaline Phosphatase (34-104) U/L Total Protein (6.4-8.9) g/dL Albumin (3.2-5.2) g/dL Globulin (2-4) g/dL Albumin/Globulin Ratio (1-3) Assess/Plan/Problems-Billing Assessment: 58 y/o male admitted post fall with nasal bone fracutre, rib fracture secondary to ETOH intoxication and loss of balance. admitted for ETOH intoxication pending withdrawal and pain control - Patient Problems (1) Nasal septum fracture Current Visit: Yes Status: Acute Code(s): S02.2XXA - FRACTURE OF NASAL BONES , INIT ENCNTR FOR CLOSED FRACTURE SNOMED Code(s): 125975999 Comment: - Seen by Dr. Kelly From ENT - did not recommend abx prophylactic. - ICE Pack and outpatient follow up in his office 1-2 weeks (2) Rib fractures Current Visit: Yes Status: Acute Code(s): S22.39XA - FRACTURE OF ONE RIB, UNSP SIDE, INIT FOR CLOS FX SNOMED Code(s): 10041252 Comment: - Fx of lateral 8th and 9th ribs - Ibuprofen for pain, given LFT will D/c his tylenol - Will add incentive spirometer - will monitor platelet in am and discontinue if it plt continue to decrease (3) Alcohol abuse Current Visit: No Status: Acute Code(s): F10.10 - ALCOHOL ABUSE, UNCOMPLICATED SNOMED Code(s): 14926202 Comment: - actively drinking - Will need social services technician; - On CIWA he did require ativan 6 mg so far today. Will keep him on CIWA/WHAM protocol (4) Alcoholic hepatitis Current Visit: No Status: Acute Code(s): K70.10 - ALCOHOLIC HEPATITIS WITHOUT ASCITES SNOMED Code(s): 202054277 Comment: - LFT trending down. Will recheck in am. keep tylenol off for now (5) HTN (hypertension) Current Visit: No Status: Acute Code(s): I10 - ESSENTIAL (PRIMARY) HYPERTENSION SNOMED Code(s): 55512312 Comment: - continue amlodipine and propranolol (6) Essential tremor Current Visit: No Status: Acute Code(s): G25.0 - ESSENTIAL TREMOR SNOMED Code(s): 162101022 Comment: - Continue Ativan and Primidone and propranolol (7) Compression fracture Current Visit: Yes Status: Acute Code(s): MHO4113 - SNOMED Code(s): 088430682 Comment: - L1,L2,L3,L4 acute - Pain control with Motrin - Will get social and production control planner - follow up Physical therapy (8) DVT prophylaxis Current Visit: No Status: Acute Code(s): FCW8651 - SNOMED Code(s): 900117887 Comment: - SCDs only
[2019-02-25] MEDS: Potassium Chlor TAB* 20 MEQ TAB.ER PO SCH (17:43)
[2019-02-26] MEDS: LORazepam TAB(*) 1 MG PO SCH ×3 (00:26→06:23)
[2019-02-26] MEDS: Ibuprofen TAB* 400 MG PO PRN ×3 (02:55→18:47)
[2019-02-26 05:38] LABS: ABS Eosinophils 0.1 10^3/ul (0-0.6); ABS Lymphocytes 0.7 10^3/ul (1.0-4.8); ABS Monocytes 0.7 10^3/ul (0-0.8); ABS Neutrophils 2.6 10^3/ul (1.5-7.7); Eosinophil % 3.4 %; Hematocrit 35 % (42-52); Hemoglobin 12.2 g/dL (14.0-18.0); Lymphocyte % 16.5 %; Mean Corpuscular HGB Conc 35 g/dL (31-36); Mean Corpuscular Hemoglobin 34 pg (27-31); Mean Corpuscular Volume 97 fL (80-94); Mean Platelet Volume 8.1 fL (7.4-10.4); Nucleated Red Blood Cells % 0.1; Platelet Count 92 10^3/uL (150-450); Red Blood Count 3.61 10^6 /uL (4.18-5.48); Red Cell Distribution Width 15 % (10-15); White Blood Count 4.1 10^3/uL (3.5-10.8)
[2019-02-26 05:49] LABS: Albumin 3.6 g/dL (3.2-5.2); Albumin/Globulin Ratio 1.4 (1-3); BUN/Creatinine Ratio 11.9 (8-20); Calcium 8.8 mg/dL (8.6-10.3); EGFR African American 170.7 (>60); EGFR Non-African American 141.1 (>60); Globulin 2.5 g/dL (2-4); Indirect Bilirubin 0.6 mg/dL (0.3-1.0); Phosphorus 3.7 mg/dL (2.5-5.0); Potassium 3.7 mmol/L (3.5-5.0); Total Bilirubin 0.9 mg/dL (0.2-1.0); Total Protein 6.1 g/dL (6.4-8.9)
[2019-02-26] MEDS: Potassium Chlor TAB* 20 MEQ TAB.ER PO SCH (09:41)
[2019-02-26] MEDS: Magnesium Oxide TAB* 400 MG PO SCH ×2 (09:41→21:02)
[2019-02-26] MEDS: amLODIPine TAB* 5 MG PO SCH (09:41)
[2019-02-26] MEDS: Multivitamins/Minerals TAB PO SCH (09:41)
[2019-02-26] MEDS: Lactobacillus Acidophilus* 1 TAB PO SCH ×2 (09:41→21:02)
[2019-02-26] MEDS: Thiamine TAB* 100 MG TAB PO SCH (09:41)
[2019-02-26] MEDS: Folic Acid TAB* 1 MG PO SCH (09:41)
[2019-02-26] MEDS: RiFAXimin* 550 MG TAB PO SCH ×2 (09:42→21:03)
[2019-02-26] MEDS: Primidone TAB(*) 250 MG PO SCH ×3 (09:42→21:03)
[2019-02-26] MEDS: Propranolol LA CAP* 60 MG PO SCH (09:42)
[2019-02-26] MEDS: LOTEPREDNOL ETABONATE BOTH EYES SCH (09:42)
--- NOTE | 2019-02-26 12:55 | PN ---
Subjective Date of Service: 02/26/19 Interval History: Patient reports that he is feeling well this AM , reports that he would like to go home. Patient continues to score between 4-9 on [facility] assessment and required Ativan this Am Patient denies any current nausea , vomiting or shaking. Denies chest pain or shortness of breath. Denies abd n/v/d. Family History: Unchanged from Admission Social History: Unchanged from Admission Past Medical History: Unchanged from Admission Objective Active Medications: Amlodipine Besylate (Norvasc Tab*) 10 mg PO DAILY [facility] Last Admin: 02/26/19 09:41 Dose: 10 mg Folic Acid (Folvite Tab*) 1 mg PO DAILY [facility] Last Admin: 02/26/19 09:41 Dose: 1 mg Ibuprofen (Motrin Tab*) 400 mg PO Q6H PRN PRN Reason: PAIN Last Admin: 02/26/19 09:46 Dose: 400 mg Lactobacillus Rhamnosus (Lactobacillus Acidophilus*) 1 tab PO BID [facility] Last Admin: 02/26/19 09:41 Dose: 1 tab Lorazepam (Ativan Tab(*)) 0 - 6 mg PO .PER [facility] PROTOCOL [facility]; Protocol Last Admin: 02/26/19 06:23 Dose: 2 mg Magnesium Oxide (Magox 400 Tab*) 800 mg PO BID [facility] Last Admin: 02/26/19 09:41 Dose: 800 mg Miscellaneous (Ativan Pyxis Carranza) 1 ea N/A .ATIVAN IV CARRANZA PRN PRN Reason: PYXIS CARRANZA Multivitamins/Minerals (Theragran/Minerals Tab*) 1 tab PO DAILY [facility] Last Admin: 02/26/19 09:41 Dose: 1 tab Non-Formulary Medication (Loteprednol Etabonate [Alrex]) 1 drop BOTH EYES DAILY [facility] Last Admin: 02/26/19 09:42 Dose: Not Given Potassium Chloride (Klor Con Er Tab*) 40 meq PO DAILY [facility] Last Admin: 02/26/19 09:41 Dose: 40 meq Primidone (Mysoline Tab(*)) 250 mg PO TID [facility] Last Admin: 02/26/19 09:42 Dose: 250 mg Propranolol HCl (Inderal La Cap*) 120 mg PO QAM [facility] Last Admin: 02/26/19 09:42 Dose: 120 mg Rifaximin (Xifaxan*) 550 mg PO BID [facility] Last Admin: 02/26/19 09:42 Dose: 550 mg Thiamine HCl (Vitamin B-1 Tab*) 100 mg PO DAILY [facility] Last Admin: 02/26/19 09:41 Dose: 100 mg Vital Signs - 8 hr 02/26/19 02/26/19 02/26/19 06:08 06:23 07:30 Temperature 98.3 F Pulse Rate 80 Respiratory 20 16 16 Rate Blood Pressure 139/85 (mmHg) O2 Sat by Pulse 98 Oximetry 02/26/19 02/26/19 07:52 08:30 Temperature 97.2 F Pulse Rate 78 Respiratory 14 16 Rate Blood Pressure 148/88 (mmHg) O2 Sat by Pulse 98 Oximetry Oxygen Devices in Use Now: None Appearance: calm , sitting in bed, no acute distress Eyes: No Scleral Icterus Ears/Nose/Mouth/Throat: Clear Oropharnyx, Mucous Membranes Moist, - - ecchymotic areas noted to bilat eye and nose Neck: NL Appearance and Movements; NL JVP, Trachea Midline Respiratory: Symmetrical Chest Expansion and Respiratory Effort, Clear to Auscultation Cardiovascular: NL Sounds; No Murmurs; No JVD, No Edema Abdominal: NL Sounds; No Tenderness; No Distention Extremities: No Edema, No Clubbing, Cyanosis Skin: No Rash or Ulcers, - Neurological: Alert and Oriented x 3 Nutrition: Taking PO's Result Diagrams: 02/26/19 05:21 02/26/19 05:21 Additional Lab and Data: Lab Results 02/23/19 02/23/19 02/23/19 Range/Units 18:33 18:33 18:33 WBC 6.4 (3.5-10.8) 10^3/uL RBC 3.78 L (4.18-5.48) 10^6 /uL Hgb 13.0 L (14.0-18.0) g/dL Hct 37 L (42-52) % MCV 99 H (80-94) fL MCH 35 H (27-31) pg MCHC 35 (31-36) g/dL RDW 16 H (10-15) % Plt Count 115 L (150-450) 10^3/uL MPV 7.3 L (7.4-10.4) fL Neut % (Auto) 75.6 % Lymph % (Auto) 11.5 % [place] % (Auto) 10.9 % Eos % (Auto) 1.5 % Baso % (Auto) 0.5 % Absolute Neuts (auto) 4.8 (1.5-7.7) 10^3/ul Absolute Lymphs (auto) 0.7 L (1.0-4.8) 10^3/ul Absolute Monos (auto) 0.7 (0-0.8) 10^3/ul Absolute Eos (auto) 0.1 (0-0.6) 10^3/ul Absolute Basos (auto) 0.0 (0-0.2) 10^3/ul Absolute Nucleated RBC 0.0 10^3/ul Nucleated RBC % 0.0 APTT 31.2 (26.0-38.0) seconds Sodium 139 (135-145) mmol/L Potassium 4.3 (3.5-5.0) mmol/L Chloride 104 (101-111) mmol/L Carbon Dioxide 28 (22-32) mmol/L Anion Gap 7 (2-11) mmol/L BUN 11 (6-24) mg/dL Creatinine 0.73 (0.67-1.17) mg/dL Est GFR ( Amer) 133.5 (>60) Est GFR (Non-Af Amer) 110.4 (>60) BUN/Creatinine Ratio 15.1 (8-20) Glucose 94 (70-100) mg/dL Lactic Acid (0.5-2.0) mmol/L Calcium 8.5 L (8.6-10.3) mg/dL Total Bilirubin 0.60 (0.2-1.0) mg/dL AST 425 H (13-39) U/L ALT 276 H (7-52) U/L Alkaline Phosphatase 362 H (34-104) U/L Total Protein 5.9 L (6.4-8.9) g/dL Albumin 3.7 (3.2-5.2) g/dL Globulin 2.2 (2-4) g/dL Albumin/Globulin Ratio 1.7 (1-3) // Range/Units 18:33 WBC (3.5-10.8) 10^3/uL RBC (4.18-5.48) 10^6 /uL Hgb (14.0-18.0) g/dL Hct (42-52) % MCV (80-94) fL MCH (27-31) pg MCHC (31-36) g/dL RDW (10-15) % Plt Count (150-450) 10^3/uL MPV (7.4-10.4) fL Neut % (Auto) % Lymph % (Auto) % [place] % (Auto) % Eos % (Auto) % Baso % (Auto) % Absolute Neuts (auto) (1.5-7.7) 10^3/ul Absolute Lymphs (auto) (1.0-4.8) 10^3/ul Absolute Monos (auto) (0-0.8) 10^3/ul Absolute Eos (auto) (0-0.6) 10^3/ul Absolute Basos (auto) (0-0.2) 10^3/ul Absolute Nucleated RBC 10^3/ul Nucleated RBC % APTT (26.0-38.0) seconds Sodium (135-145) mmol/L Potassium (3.5-5.0) mmol/L Chloride (101-111) mmol/L Carbon Dioxide (22-32) mmol/L Anion Gap (2-11) mmol/L BUN (6-24) mg/dL Creatinine (0.67-1.17) mg/dL Est GFR ( Amer) (>60) Est GFR (Non-Af Amer) (>60) BUN/Creatinine Ratio (8-20) Glucose (70-100) mg/dL Lactic Acid 1.6 (0.5-2.0) mmol/L Calcium (8.6-10.3) mg/dL Total Bilirubin (0.2-1.0) mg/dL AST (13-39) U/L ALT (7-52) U/L Alkaline Phosphatase (34-104) U/L Total Protein (6.4-8.9) g/dL Albumin (3.2-5.2) g/dL Globulin (2-4) g/dL Albumin/Globulin Ratio (1-3) Assess/Plan/Problems-Billing Assessment: 58 y/o male admitted post fall with nasal bone fracutre, rib fracture secondary to ETOH intoxication and loss of balance. admitted for ETOH intoxication pending withdrawal and pain control - Patient Problems (1) Nasal septum fracture Current Visit: Yes Status: Acute Code(s): S02.2XXA - FRACTURE OF NASAL BONES , INIT ENCNTR FOR CLOSED FRACTURE SNOMED Code(s): 813437297 Comment: - Seen by Dr. Kelly From ENT - did not recommend abx prophylactic. - ICE Pack and outpatient follow up in his office 1-2 weeks (2) Compression fracture Current Visit: Yes Status: Acute Code(s): [id number] - SNOMED Code(s): 663192752 Comment: - L1,L2,L3,L4 acute - Pain control with Motrin - Will get social and brand planner - follow up Physical therapy (3) Rib fractures Current Visit: Yes Status: Acute Code(s): S22.39XA - FRACTURE OF ONE RIB, UNSP SIDE, INIT FOR CLOS FX SNOMED Code(s): 14160502 Comment: - Fx of lateral 8th and 9th ribs - Ibuprofen for pain, given LFT will D/c his tylenol - Will add incentive spirometer - will monitor platelet 93 today - will continue ibuprofen for now and contnue to monitor platelet level (4) Alcohol abuse Current Visit: No Status: Acute Code(s): F10.10 - ALCOHOL ABUSE, UNCOMPLICATED SNOMED Code(s): 20836187 Comment: - actively drinking - Will need social and political studies professor; - On WAM he did require ativan 7 mg since midnight. Scoring between 4-9 today - Will keep him on WAM protocol (5) Alcoholic hepatitis Current Visit: No Status: Acute Code(s): K70.10 - ALCOHOLIC HEPATITIS WITHOUT ASCITES SNOMED Code(s): 996495350 Comment: - LFT continue to trending down. - continue with thiamine supplement (6) Essential tremor Current Visit: No Status: Acute Code(s): G25.0 - ESSENTIAL TREMOR SNOMED Code(s): 514629291 Comment: - Continue Ativan and Primidone and propranolol (7) HTN (hypertension) Current Visit: No Status: Acute Code(s): I10 - ESSENTIAL (PRIMARY) HYPERTENSION SNOMED Code(s): 14119239 Comment: Stable - continue amlodipine and propranolol (8) DVT prophylaxis Current Visit: No Status: Acute Code(s): TSX4550 - SNOMED Code(s): 790249763 Comment: - SCDs only (9) Full code status Current Visit: No Status: Acute Code(s): Z78.9 - OTHER SPECIFIED HEALTH STATUS SNOMED Code(s): 833562781
[2019-02-26] MEDS ORDERED: Acetaminophen TAB* 325 MG PO ONE (13:23)
[2019-02-26] MEDS ORDERED: Morphine INJ* 2 MG/ML 1 ML SYRINGE (TWO MG - NEW SYRINGE VERSION) IV ONE (22:20)
[2019-02-27] MEDS: Ibuprofen TAB* 400 MG PO PRN ×4 (01:42→19:05)
[2019-02-27] MEDS: Morphine INJ* 2 MG/ML 1 ML SYRINGE (TWO MG - NEW SYRINGE VERSION) IV PRN ×4 (03:52→23:28)
[2019-02-27 09:08] LABS: Hematocrit 33 % (42-52); Hemoglobin 11.4 g/dL (14.0-18.0); Mean Corpuscular HGB Conc 34 g/dL (31-36); Mean Corpuscular Hemoglobin 33 pg (27-31); Mean Corpuscular Volume 97 fL (80-94); Mean Platelet Volume 7.9 fL (7.4-10.4); Platelet Count 144 10^3/uL (150-450); Red Blood Count 3.43 10^6 /uL (4.18-5.48); Red Cell Distribution Width 15 % (10-15); White Blood Count 5.2 10^3/uL (3.5-10.8)
[2019-02-27] MEDS: Propranolol LA CAP* 60 MG PO SCH (10:49)
[2019-02-27] MEDS: Magnesium Oxide TAB* 400 MG PO SCH ×2 (10:49→22:35)
[2019-02-27] MEDS: Potassium Chlor TAB* 20 MEQ TAB.ER PO SCH (10:49)
[2019-02-27] MEDS: Multivitamins/Minerals TAB PO SCH (10:49)
[2019-02-27] MEDS: amLODIPine TAB* 5 MG PO SCH (10:49)
[2019-02-27] MEDS: Folic Acid TAB* 1 MG PO SCH (10:49)
[2019-02-27] MEDS: Thiamine TAB* 100 MG TAB PO SCH (10:49)
[2019-02-27] MEDS: Lactobacillus Acidophilus* 1 TAB PO SCH ×2 (10:49→22:35)
[2019-02-27] MEDS: RiFAXimin* 550 MG TAB PO SCH ×2 (10:49→22:35)
[2019-02-27] MEDS: Primidone TAB(*) 250 MG PO SCH ×3 (10:49→22:35)
[2019-02-27] MEDS: LOTEPREDNOL ETABONATE BOTH EYES SCH (10:52)
--- NOTE | 2019-02-27 17:11 | PN ---
Subjective Date of Service: 02/27/19 Interval History: Reports that he was able to sleep last night. reports that he is ready to return home. Denies chest pain or shortness of breath. denies abd pain n/v/d. WAM scoring 1-2 not requiring ativan - last dose was 0630 on 02/26/19, reports that he will seek help through [facility] as outpatient for alcohol misuse. continues to report left rib pain, d/t pain last evening had morphine IV - with good effect When reviewing discharge plan with the patient and his ex- fiance - patient reports that now he would like to go to inpatient rehab for alcohol abuse, social work notified and is working on process. Family History: Unchanged from Admission Social History: Unchanged from Admission Past Medical History: Unchanged from Admission Objective Active Medications: Amlodipine Besylate (Norvasc Tab*) 10 mg PO DAILY [facility] Last Admin: 02/27/19 10:49 Dose: 10 mg Folic Acid (Folvite Tab*) 1 mg PO DAILY [facility] Last Admin: 02/27/19 10:49 Dose: 1 mg Ibuprofen (Motrin Tab*) 400 mg PO Q6H PRN PRN Reason: PAIN Last Admin: 02/27/19 15:31 Dose: 400 mg Lactobacillus Rhamnosus (Lactobacillus Acidophilus*) 1 tab PO BID [facility] Last Admin: 02/27/19 10:49 Dose: 1 tab Lorazepam (Ativan Tab(*)) 0 - 6 mg PO .PER [facility] PROTOCOL [facility]; Protocol Last Admin: 02/26/19 06:23 Dose: 2 mg Magnesium Oxide (Magox 400 Tab*) 800 mg PO BID [facility] Last Admin: 02/27/19 10:49 Dose: 800 mg Miscellaneous (Ativan Pyxis Carranza) 1 ea N/A .ATIVAN IV CARRANZA PRN PRN Reason: PYXIS CARRANZA Morphine Sulfate (Morphine Inj (Syringe))*) 2 mg IV Q4H PRN PRN Reason: PAIN Last Admin: 02/27/19 10:59 Dose: 2 mg Multivitamins/Minerals (Theragran/Minerals Tab*) 1 tab PO DAILY [facility] Last Admin: 02/27/19 10:49 Dose: 1 tab Non-Formulary Medication (Loteprednol Etabonate [Alrex]) 1 drop BOTH EYES DAILY [facility] Last Admin: 07/22/19 10:52 Dose: Not Given Potassium Chloride (Klor Con Er Tab*) 40 meq PO DAILY [facility] Last Admin: 02/27/19 10:49 Dose: 40 meq Primidone (Mysoline Tab(*)) 250 mg PO TID [facility] Last Admin: 02/27/19 15:22 Dose: 250 mg Propranolol HCl (Inderal La Cap*) 120 mg PO QAM [facility] Last Admin: 02/27/19 10:49 Dose: 120 mg Rifaximin (Xifaxan*) 550 mg PO BID [facility] Last Admin: 02/27/19 10:49 Dose: 550 mg Thiamine HCl (Vitamin B-1 Tab*) 100 mg PO DAILY [facility] Last Admin: 02/27/19 10:49 Dose: 100 mg Vital Signs - 8 hr 02/27/19 02/27/19 10:59 11:18 Temperature 97.3 F Pulse Rate 73 Respiratory 13 16 Rate Blood Pressure 147/84 (mmHg) O2 Sat by Pulse 100 Oximetry Oxygen Devices in Use Now: None Appearance: alerlt, calm no acute distress Eyes: No Scleral Icterus Ears/Nose/Mouth/Throat: Clear Oropharnyx, Mucous Membranes Moist, - - ecchymotic Neck: NL Appearance and Movements; NL JVP, Trachea Midline Respiratory: Symmetrical Chest Expansion and Respiratory Effort, Clear to Auscultation Cardiovascular: NL Sounds; No Murmurs; No JVD, No Edema Abdominal: NL Sounds; No Tenderness; No Distention Extremities: No Edema, No Clubbing, Cyanosis Skin: No Rash or Ulcers, - - ecchymotic areas noted to nasal and bilat asha orbital , left flank Neurological: Alert and Oriented x 3 Nutrition: Taking PO's Result Diagrams: 02/27/19 08:50 02/26/19 05:21 Additional Lab and Data: Lab Results 02/23/19 02/23/19 02/23/19 Range/Units 18:33 18:33 18:33 WBC 6.4 (3.5-10.8) 10^3/uL RBC 3.78 L (4.18-5.48) 10^6 /uL Hgb 13.0 L (14.0-18.0) g/dL Hct 37 L (42-52) % MCV 99 H (80-94) fL MCH 35 H (27-31) pg MCHC 35 (31-36) g/dL RDW 16 H (10-15) % Plt Count 115 L (150-450) 10^3/uL MPV 7.3 L (7.4-10.4) fL Neut % (Auto) 75.6 % Lymph % (Auto) 11.5 % [place] % (Auto) 10.9 % Eos % (Auto) 1.5 % Baso % (Auto) 0.5 % Absolute Neuts (auto) 4.8 (1.5-7.7) 10^3/ul Absolute Lymphs (auto) 0.7 L (1.0-4.8) 10^3/ul Absolute Monos (auto) 0.7 (0-0.8) 10^3/ul Absolute Eos (auto) 0.1 (0-0.6) 10^3/ul Absolute Basos (auto) 0.0 (0-0.2) 10^3/ul Absolute Nucleated RBC 0.0 10^3/ul Nucleated RBC % 0.0 APTT 31.2 (26.0-38.0) seconds Sodium 139 (135-145) mmol/L Potassium 4.3 (3.5-5.0) mmol/L Chloride 104 (101-111) mmol/L Carbon Dioxide 28 (22-32) mmol/L Anion Gap 7 (2-11) mmol/L BUN 11 (6-24) mg/dL Creatinine 0.73 (0.67-1.17) mg/dL Est GFR ( Amer) 133.5 (>60) Est GFR (Non-Af Amer) 110.4 (>60) BUN/Creatinine Ratio 15.1 (8-20) Glucose 94 (70-100) mg/dL Lactic Acid (0.5-2.0) mmol/L Calcium 8.5 L (8.6-10.3) mg/dL Total Bilirubin 0.60 (0.2-1.0) mg/dL AST 425 H (13-39) U/L ALT 276 H (7-52) U/L Alkaline Phosphatase 362 H (34-104) U/L Total Protein 5.9 L (6.4-8.9) g/dL Albumin 3.7 (3.2-5.2) g/dL Globulin 2.2 (2-4) g/dL Albumin/Globulin Ratio 1.7 (1-3) 07/18/19 Range/Units 18:33 WBC (3.5-10.8) 10^3/uL RBC (4.18-5.48) 10^6 /uL Hgb (14.0-18.0) g/dL Hct (42-52) % MCV (80-94) fL MCH (27-31) pg MCHC (31-36) g/dL RDW (10-15) % Plt Count (150-450) 10^3/uL MPV (7.4-10.4) fL Neut % (Auto) % Lymph % (Auto) % [place] % (Auto) % Eos % (Auto) % Baso % (Auto) % Absolute Neuts (auto) (1.5-7.7) 10^3/ul Absolute Lymphs (auto) (1.0-4.8) 10^3/ul Absolute Monos (auto) (0-0.8) 10^3/ul Absolute Eos (auto) (0-0.6) 10^3/ul Absolute Basos (auto) (0-0.2) 10^3/ul Absolute Nucleated RBC 10^3/ul Nucleated RBC % APTT (26.0-38.0) seconds Sodium (135-145) mmol/L Potassium (3.5-5.0) mmol/L Chloride (101-111) mmol/L Carbon Dioxide (22-32) mmol/L Anion Gap (2-11) mmol/L BUN (6-24) mg/dL Creatinine (0.67-1.17) mg/dL Est GFR ( Amer) (>60) Est GFR (Non-Af Amer) (>60) BUN/Creatinine Ratio (8-20) Glucose (70-100) mg/dL Lactic Acid 1.6 (0.5-2.0) mmol/L Calcium (8.6-10.3) mg/dL Total Bilirubin (0.2-1.0) mg/dL AST (13-39) U/L ALT (7-52) U/L Alkaline Phosphatase (34-104) U/L Total Protein (6.4-8.9) g/dL Albumin (3.2-5.2) g/dL Globulin (2-4) g/dL Albumin/Globulin Ratio (1-3) Assess/Plan/Problems-Billing Assessment: 58 y/o male admitted post fall with nasal bone fracutre, rib fracture secondary to ETOH intoxication and loss of balance. admitted for ETOH intoxication pending withdrawal and pain control - Patient Problems (1) Nasal septum fracture Current Visit: Yes Status: Acute Code(s): S02.2XXA - FRACTURE OF NASAL BONES , INIT ENCNTR FOR CLOSED FRACTURE SNOMED Code(s): 596796035 Comment: - Seen by Dr. Kelly From ENT - did not recommend abx prophylactic. - ICE Pack and outpatient follow up in his office 1-2 weeks (2) Compression fracture Current Visit: Yes Status: Acute Code(s): TXE7018 - SNOMED Code(s): 005980998 Comment: - L1,L2,L3,L4 acute - Pain control with Motrin - Will get social and wedding planner - follow up Physical therapy (3) Rib fractures Current Visit: Yes Status: Acute Code(s): S22.39XA - FRACTURE OF ONE RIB, UNSP SIDE, INIT FOR CLOS FX SNOMED Code(s): 58392046 Comment: - Fx of lateral 8th and 9th ribs - Ibuprofen for pain, given LFT will D/c his tylenol - Will add incentive spirometer - will monitor platelet 144 today - will continue ibuprofen for now and contnue to monitor platelet level (4) Alcohol abuse Current Visit: No Status: Acute Code(s): F10.10 - ALCOHOL ABUSE, UNCOMPLICATED SNOMED Code(s): 92990248 Comment: - actively drinking - Will need social welfare research worker; - patient would like to go to inpatient rehab - On WAM today scoring 1-2 changed to Q4 hours - will d/c if continues not to score (5) Alcoholic hepatitis Current Visit: No Status: Acute Code(s): K70.10 - ALCOHOLIC HEPATITIS WITHOUT ASCITES SNOMED Code(s): 531469020 Comment: - LFT continue to trending down. - continue with thiamine supplement (6) Essential tremor Current Visit: No Status: Acute Code(s): G25.0 - ESSENTIAL TREMOR SNOMED Code(s): 314088711 Comment: - Continue Ativan and Primidone and propranolol (7) HTN (hypertension) Current Visit: No Status: Acute Code(s): I10 - ESSENTIAL (PRIMARY) HYPERTENSION SNOMED Code(s): 80467088 Comment: Stable - continue amlodipine and propranolol (8) DVT prophylaxis Current Visit: No Status: Acute Code(s): OZG0103 - SNOMED Code(s): 870341049 Comment: - SCDs only (9) Full code status Current Visit: No Status: Acute Code(s): Z78.9 - OTHER SPECIFIED HEALTH STATUS SNOMED Code(s): 060368132
[2019-02-28] MEDS: Ibuprofen TAB* 400 MG PO PRN ×3 (01:21→19:09)
[2019-02-28] MEDS: Morphine INJ* 2 MG/ML 1 ML SYRINGE (TWO MG - NEW SYRINGE VERSION) IV PRN ×2 (03:36→08:37)
[2019-02-28] MEDS: Propranolol LA CAP* 60 MG PO SCH (08:34)
[2019-02-28] MEDS: RiFAXimin* 550 MG TAB PO SCH ×2 (08:35→20:34)
[2019-02-28] MEDS: Lactobacillus Acidophilus* 1 TAB PO SCH ×2 (08:35→20:34)
[2019-02-28] MEDS: Primidone TAB(*) 250 MG PO SCH ×3 (08:35→20:35)
[2019-02-28] MEDS: Folic Acid TAB* 1 MG PO SCH (08:35)
[2019-02-28] MEDS: amLODIPine TAB* 5 MG PO SCH (08:35)
[2019-02-28] MEDS: Multivitamins/Minerals TAB PO SCH (08:36)
[2019-02-28] MEDS: Magnesium Oxide TAB* 400 MG PO SCH ×2 (08:36→20:34)
[2019-02-28] MEDS: Thiamine TAB* 100 MG TAB PO SCH (08:36)
[2019-02-28] MEDS: Potassium Chlor TAB* 20 MEQ TAB.ER PO SCH (08:36)
[2019-02-28] MEDS: LOTEPREDNOL ETABONATE BOTH EYES SCH ×2 (08:37→12:47)
[2019-02-28] MEDS ORDERED: HYDROcodone/ACETAMIN 5-325 MG* 1 TAB PO ONE (09:50)
[2019-02-28] MEDS: Lidocaine PATCH 5%* 1 PATCH TRANSDERM SCH (10:25)
--- NOTE | 2019-02-28 13:41 | PN ---
Subjective Date of Service: 02/28/19 Interval History: patient reports that he was unable to sleep last night do to rib pain. Denies chest pain or shortness of breath. denies abd pain n/v/d. c/o back pain. Patient reports that he would like to go to inpatient rehab for alcohol. Is currently working with [employer] at this time. Family History: Unchanged from Admission Social History: Unchanged from Admission Past Medical History: Unchanged from Admission Objective Active Medications: Amlodipine Besylate (Norvasc Tab*) 10 mg PO DAILY [facility] Last Admin: 02/28/19 08:35 Dose: 10 mg Folic Acid (Folvite Tab*) 1 mg PO DAILY [facility] Last Admin: 02/28/19 08:35 Dose: 1 mg Ibuprofen (Motrin Tab*) 400 mg PO Q6H PRN PRN Reason: PAIN Last Admin: 02/28/19 12:51 Dose: 400 mg Lactobacillus Rhamnosus (Lactobacillus Acidophilus*) 1 tab PO BID [facility] Last Admin: 02/28/19 08:35 Dose: 1 tab Lidocaine (Lidoderm 5% Patch*) 1 patch TRANSDERM DAILY [facility] Last Admin: 02/28/19 10:25 Dose: 1 patch Lorazepam (Ativan Tab(*)) 0 - 6 mg PO .PER [facility] PROTOCOL [facility]; Protocol Last Admin: 02/26/19 06:23 Dose: 2 mg Magnesium Oxide (Magox 400 Tab*) 800 mg PO BID [facility] Last Admin: 02/28/19 08:36 Dose: 800 mg Miscellaneous (Ativan Pyxis Carranza) 1 ea N/A .ATIVAN IV CARRANZA PRN PRN Reason: PYXIS CARRANZA Multivitamins/Minerals (Theragran/Minerals Tab*) 1 tab PO DAILY [facility] Last Admin: 02/28/19 08:36 Dose: 1 tab Pto: (Loteprednol Etabonate [Alrex] Ophthalmic Suspension) 1 drop BOTH EYES DAILY [facility] Last Admin: 02/28/19 12:47 Dose: 1 drop Pharmacy Profile Note (Lidocaine Patch Remove*) 1 note N/A 2100 [facility] Potassium Chloride (Klor Con Er Tab*) 40 meq PO DAILY [facility] Last Admin: 02/28/19 08:36 Dose: 40 meq Primidone (Mysoline Tab(*)) 250 mg PO TID [facility] Last Admin: 02/28/19 08:35 Dose: 250 mg Propranolol HCl (Inderal La Cap*) 120 mg PO QAM [facility] Last Admin: 02/28/19 08:34 Dose: 120 mg Rifaximin (Xifaxan*) 550 mg PO BID [facility] Last Admin: 02/28/19 08:35 Dose: 550 mg Thiamine HCl (Vitamin B-1 Tab*) 100 mg PO DAILY [facility] Last Admin: 02/28/19 08:36 Dose: 100 mg Vital Signs - 8 hr 02/28/19 02/28/19 02/28/19 07:15 08:00 08:37 Temperature 97 F Pulse Rate 63 Respiratory 16 18 18 Rate Blood Pressure 147/80 (mmHg) O2 Sat by Pulse 98 Oximetry 02/28/19 02/28/19 02/28/19 10:25 10:35 11:15 Temperature 97.6 F Pulse Rate 69 Respiratory 18 18 16 Rate Blood Pressure 140/76 (mmHg) O2 Sat by Pulse 99 Oximetry 02/28/19 12:43 Temperature Pulse Rate Respiratory 18 Rate Blood Pressure (mmHg) O2 Sat by Pulse Oximetry Oxygen Devices in Use Now: None Appearance: appears comfortable sitting in the chair Eyes: No Scleral Icterus Ears/Nose/Mouth/Throat: Clear Oropharnyx, Mucous Membranes Moist, - Neck: NL Appearance and Movements; NL JVP, Trachea Midline Respiratory: Symmetrical Chest Expansion and Respiratory Effort, Clear to Auscultation Cardiovascular: NL Sounds; No Murmurs; No JVD, No Edema Abdominal: NL Sounds; No Tenderness; No Distention Skin: No Rash or Ulcers, - - ecchymosis to left lower ribs / flank area , bilat orbits Neurological: Alert and Oriented x 3 Nutrition: Taking PO's Result Diagrams: 02/27/19 08:50 02/26/19 05:21 Additional Lab and Data: Lab Results 02/23/19 02/23/19 02/23/19 Range/Units 18:33 18:33 18:33 WBC 6.4 (3.5-10.8) 10^3/uL RBC 3.78 L (4.18-5.48) 10^6 /uL Hgb 13.0 L (14.0-18.0) g/dL Hct 37 L (42-52) % MCV 99 H (80-94) fL MCH 35 H (27-31) pg MCHC 35 (31-36) g/dL RDW 16 H (10-15) % Plt Count 115 L (150-450) 10^3/uL MPV 7.3 L (7.4-10.4) fL Neut % (Auto) 75.6 % Lymph % (Auto) 11.5 % [place] % (Auto) 10.9 % Eos % (Auto) 1.5 % Baso % (Auto) 0.5 % Absolute Neuts (auto) 4.8 (1.5-7.7) 10^3/ul Absolute Lymphs (auto) 0.7 L (1.0-4.8) 10^3/ul Absolute Monos (auto) 0.7 (0-0.8) 10^3/ul Absolute Eos (auto) 0.1 (0-0.6) 10^3/ul Absolute Basos (auto) 0.0 (0-0.2) 10^3/ul Absolute Nucleated RBC 0.0 10^3/ul Nucleated RBC % 0.0 APTT 31.2 (26.0-38.0) seconds Sodium 139 (135-145) mmol/L Potassium 4.3 (3.5-5.0) mmol/L Chloride 104 (101-111) mmol/L Carbon Dioxide 28 (22-32) mmol/L Anion Gap 7 (2-11) mmol/L BUN 11 (6-24) mg/dL Creatinine 0.73 (0.67-1.17) mg/dL Est GFR ( Amer) 133.5 (>60) Est GFR (Non-Af Amer) 110.4 (>60) BUN/Creatinine Ratio 15.1 (8-20) Glucose 94 (70-100) mg/dL Lactic Acid (0.5-2.0) mmol/L Calcium 8.5 L (8.6-10.3) mg/dL Total Bilirubin 0.60 (0.2-1.0) mg/dL AST 425 H (13-39) U/L ALT 276 H (7-52) U/L Alkaline Phosphatase 362 H (34-104) U/L Total Protein 5.9 L (6.4-8.9) g/dL Albumin 3.7 (3.2-5.2) g/dL Globulin 2.2 (2-4) g/dL Albumin/Globulin Ratio 1.7 (1-3) // Range/Units 18:33 WBC (3.5-10.8) 10^3/uL RBC (4.18-5.48) 10^6 /uL Hgb (14.0-18.0) g/dL Hct (42-52) % MCV (80-94) fL MCH (27-31) pg MCHC (31-36) g/dL RDW (10-15) % Plt Count (150-450) 10^3/uL MPV (7.4-10.4) fL Neut % (Auto) % Lymph % (Auto) % [place] % (Auto) % Eos % (Auto) % Baso % (Auto) % Absolute Neuts (auto) (1.5-7.7) 10^3/ul Absolute Lymphs (auto) (1.0-4.8) 10^3/ul Absolute Monos (auto) (0-0.8) 10^3/ul Absolute Eos (auto) (0-0.6) 10^3/ul Absolute Basos (auto) (0-0.2) 10^3/ul Absolute Nucleated RBC 10^3/ul Nucleated RBC % APTT (26.0-38.0) seconds Sodium (135-145) mmol/L Potassium (3.5-5.0) mmol/L Chloride (101-111) mmol/L Carbon Dioxide (22-32) mmol/L Anion Gap (2-11) mmol/L BUN (6-24) mg/dL Creatinine (0.67-1.17) mg/dL Est GFR ( Amer) (>60) Est GFR (Non-Af Amer) (>60) BUN/Creatinine Ratio (8-20) Glucose (70-100) mg/dL Lactic Acid 1.6 (0.5-2.0) mmol/L Calcium (8.6-10.3) mg/dL Total Bilirubin (0.2-1.0) mg/dL AST (13-39) U/L ALT (7-52) U/L Alkaline Phosphatase (34-104) U/L Total Protein (6.4-8.9) g/dL Albumin (3.2-5.2) g/dL Globulin (2-4) g/dL Albumin/Globulin Ratio (1-3) Assess/Plan/Problems-Billing Assessment: 58 y/o male admitted post fall with nasal bone fracutre, rib fracture secondary to ETOH intoxication and loss of balance. admitted for ETOH intoxication pending withdrawal and pain control - Patient Problems (1) Nasal septum fracture Current Visit: Yes Status: Acute Code(s): S02.2XXA - FRACTURE OF NASAL BONES , INIT ENCNTR FOR CLOSED FRACTURE SNOMED Code(s): 138892643 Comment: - Seen by Dr. Kelly From ENT - did not recommend abx prophylactic. - ICE Pack and outpatient follow up in his office 1-2 weeks (2) Compression fracture Current Visit: Yes Status: Acute Code(s): WZL8616 - SNOMED Code(s): 891731741 Comment: - L1,L2,L3,L4 acute - Pain control with Motrin, add roxycodone Q 6 hours for severe pain and lidocaine patch - follow up Physical therapy (3) Rib fractures Current Visit: Yes Status: Acute Code(s): S22.39XA - FRACTURE OF ONE RIB, UNSP SIDE, INIT FOR CLOS FX SNOMED Code(s): 65561222 Comment: - Fx of lateral 8th and 9th ribs - Ibuprofen for pain, given LFT will D/c his tylenol - Will add incentive spirometer - will continue ibuprofen for now (4) Alcohol abuse Current Visit: No Status: Acute Code(s): F10.10 - ALCOHOL ABUSE, UNCOMPLICATED SNOMED Code(s): 03862815 Comment: - actively drinking - Will need social service agency director; - patient would like to go to inpatient rehab - On WAM today scoring 1-2 changed to Q4 hours - will d/c (5) Alcoholic hepatitis Current Visit: No Status: Acute Code(s): K70.10 - ALCOHOLIC HEPATITIS WITHOUT ASCITES SNOMED Code(s): 738829630 Comment: - LFT continue to trending down. - continue with thiamine supplement (6) Essential tremor Current Visit: No Status: Acute Code(s): G25.0 - ESSENTIAL TREMOR SNOMED Code(s): 092449373 Comment: - Continue Ativan and Primidone and propranolol (7) HTN (hypertension) Current Visit: No Status: Acute Code(s): I10 - ESSENTIAL (PRIMARY) HYPERTENSION SNOMED Code(s): 11302488 Comment: Stable - continue amlodipine and propranolol (8) DVT prophylaxis Current Visit: No Status: Acute Code(s): AEW1510 - SNOMED Code(s): 651845464 Comment: - SCDs only (9) Full code status Current Visit: No Status: Acute Code(s): Z78.9 - OTHER SPECIFIED HEALTH STATUS SNOMED Code(s): 641244210 Status and Disposition: discharge tomorrow
[2019-02-28] MEDS: oxyCODONE TAB* 5 MG TAB PO PRN ×2 (16:16→22:54)
[2019-02-28] MEDS ORDERED: Lidocaine Patch REMOVE* 1 NOTE MISC SCH (21:00)
[2019-03-01] MEDS: Ibuprofen TAB* 400 MG PO PRN ×2 (01:27→09:58)
[2019-03-01] MEDS ORDERED: oxyCODONE TAB* 5 MG TAB PO ONE (03:33)
[2019-03-01] MEDS ORDERED: oxyCODONE TAB* 5 MG TAB ONE (03:37)
--- NOTE | 2019-03-01 04:01 | DS ---
DISCHARGE SUMMARY: DATE OF ADMISSION: 02/24/19 DATE OF DISCHARGE: 03/01/19 PROVIDER: Jasmin Niño NP. PRIMARY CARE PROVIDER: Dr. Hartley. ATTENDING PHYSICIAN WHILE IN THE HOSPITAL: Dr. Woodrow Cheatham * (dictated by Jasmin Niño NP). PRIMARY DIAGNOSES: 1. Nasal septal fracture. 2. Fall. 3. Thrombocytopenia. 4. Rib fractures. 5. Acute compression fractures of the lumbar spine. SECONDARY DIAGNOSES: 1. Alcohol abuse. 2. Hypertension. 3. Alcoholic hepatitis. 4. Essential tremor. 5. History of hemorrhagic stroke. STUDIES COMPLETED WHILE IN THE HOSPITAL: He had a CT of the brain on 02/23/19. Radiologist's impression: Negative for intracranial hemorrhage or acute intracranial process, involutional changes, unchanged findings of decreased density at the posterior aspect of the left basal ganglia which corresponds to previous parenchymal hematoma site base on comparison with 11/02/18. He had maxillofacial CT, comminuted nasal bone fracture. The nasal lacrimal ducts are intact. Fracture to the nasal septum with no large nasal septal hematoma. Soft tissue swelling around the nasal bridge and left periorbital structures. He had a chest and left rib x-rays, slightly displaced fractures of the left lateral 8th and 9th ribs. He had a CT of the chest, abdomen, and pelvis, which showed chronic appearing right rib fractures. There is also chronic appearing left 8th, 9th, and 10th rib fractures. There is possible acute fractures involving the posterior aspect of the 11th rib and posterior aspect of the right 9th, 10th, and 11th ribs. DISCHARGE MEDICATIONS: New home medications: 1. Roxicodone 5 mg p.o. q.6 hours, dispensed #12 for 3 days supply. [employer] reference number is [id number]. Last narcotic prescription was prescribed on , was for diazepam 5 mg. 2. Lidocaine patch 1 transdermally daily. 3. Magnesium oxide 800 mg p.o. b.i.d. Continued home medications: 1. Amlodipine 10 mg p.o. daily. 2. Folic acid 1 mg p.o. daily. 3. Ibuprofen 400 mg p.o. q.6 hours. 4. Lactobacillus 1 tab p.o. b.i.d. 5. Multivitamin 1 tablet p.o. daily. 6. Potassium chloride 40 mEq p.o. daily. 7. Primidone 250 mg p.o. t.i.d. 8. Propranolol 120 mg p.o. daily. 9. Rifaximin 550 mg p.o. b.i.d. 10. Thiamine 1000 mg p.o. daily. HISTORY OF PRESENT ILLNESS AND HOSPITAL COURSE: Mr. Winchester is a 58-year-old gentleman with past medical history significant for alcohol abuse, hypertension , alcoholic hepatitis, essential tremor, who presented to the emergency room after a fall. The patient has been having multiple falls and still actively drinking alcohol. Today, he went on a sailing trip and throughout the day he drank multiple beverages. He did not recall the number of drinks that he had had today. He was going up the hill with his bags and his cane in the other hand, and all of a sudden, he lost his balance and fell. He could not break his fall with his hands, so he hit his face and then presented to the emergency room with severe pain into the facial area. The patient also complained of pain around the right nasal area and swelling. He denied any shortness of breath. He also had some pain and bruising noted to the left ribs and left flank area. Due to these findings and fall, we were asked to see and evaluate him for admission. During this hospitalization, the patient did have alcohol withdrawal. He was placed on WAM protocol and did score requiring Ativan for his alcohol withdrawal symptoms. The patient's symptoms did resolve. He has no further delusions, tremors, nausea or vomiting, and it has been over 48 hours since he has required Ativan for control of withdrawal symptoms. He also had CTs that did show possible acute rib fractures on the left and right ribs. Also has acute nasal septal fracture, for which he was seen by ENT during this hospitalization and was recommended to follow up in 1 to 2 weeks. He has some acute compression fractures to the lumbar spine that he most likely sustained in his fall. During the hospitalization, the patient did express willingness to go to inpatient rehab for help with his alcohol abuse. At this time, Mr. Winchester is stable for discharge to inpatient alcohol rehab or home. The patient has been in contact with [facility] for inpatient alcohol rehab. Disposition to [facility] is not determined at this time. At this time, Mr. Winchester is stable for discharge home. Vital signs are as follows: Blood pressure 165/88, heart rate is 67, respirations 19, O2 saturation 100%, temperature was 97.6. DISCHARGE PLAN: Mr. Winchester will be discharged back home or to inpatient alcohol rehab. Activity: As tolerated. 1. Falls: I suspect his falls are related to his chronic alcohol abuse and intoxication. I would recommend refraining from alcohol use. The patient is willing to go to inpatient rehab at [facility]. I would recommend this for assistance and him recovering from alcohol issues and abuse. The patient will continue on folic acid and vitamin B12, thiamine as previously prescribed. 2. Nasal septal fracture: The patient does have a nasal septal fracture and was seen by ENT during this hospitalization. He should follow up with ENT in 1 to 2 weeks for further recommendations and treatment of his nasal septal fracture. 3. Thrombocytopenia: The patient did have thrombocytopenia during this hospitalization. I suspect that is related to his alcohol abuse. His platelet count did improve during his hospitalization. 4. Alcoholic hepatitis: The patient did have elevated liver functions during this hospitalization. He did receive IV hydration and his liver functions did improve throughout the hospitalization. I would recommend refraining from excessive acetaminophen use as he does have elevated liver functions. I would recommend he continue his rifaximin as previously prescribed. 5. Hypertension: The patient should continue on his amlodipine 10 mg p.o. daily. 6. Rib fractures, compression fractures to the back: The patient can use lidocaine patch or Roxicodone 5 mg p.o. q.6 hours as needed for severe pain. He can take ibuprofen 400 mg p.o. q.6 hours as needed for [id number] pain. He can also use ice or heat to the ribs or the back for comfort. He will be dispensed a 3-day supply of Roxicodone for a total of 12 tablets. The patient has been on I- STOP. Please refer to the previous I-STOP number. 7. Essential tremors: The patient to continue on his primidone as previously prescribed. 8. At this time, the patient is stable for discharge to inpatient alcohol rehab or home. FOLLOWUP: The patient should follow up with his primary care provider in 4 to 7 days. He should continue to seek help for his alcohol abuse. The patient was instructed to return to the emergency room for any chest pain, shortness of breath, fever, chills, or any other concerning symptoms. TIME SPENT: Time spent on this discharge is approximately 60 minutes, greater than half that time was spent reviewing events, reviewing discharge plans and instructions. The patient verbalized understanding. I have discussed this with my attending Dr. Woodrow Cheatham, he is in agreement with my plan. JASMIN NIÑO, RADHAMES [id number]/CPS #: [id number] HOLLY
[2019-03-01 06:41] LABS: BUN/Creatinine Ratio 28.1 (8-20); Calcium 8.7 mg/dL (8.6-10.3); EGFR African American 155.4 (>60); EGFR Non-African American 128.5 (>60); Magnesium 2.5 mg/dL (1.9-2.7); Potassium 4.4 mmol/L (3.5-5.0)
[2019-03-01 07:54] VITALS: BP 140/77
[2019-03-01] MEDS ORDERED: Magnesium Oxide TAB* 400 MG PO SCH (09:00)
[2019-03-01] MEDS: Folic Acid TAB* 1 MG PO SCH (09:49)
[2019-03-01] MEDS: LOTEPREDNOL ETABONATE BOTH EYES SCH (09:49)
[2019-03-01] MEDS: Potassium Chlor TAB* 20 MEQ TAB.ER PO SCH (09:49)
[2019-03-01] MEDS: oxyCODONE TAB* 5 MG TAB PO PRN (09:50)
[2019-03-01] MEDS: Multivitamins/Minerals TAB PO SCH (09:50)
[2019-03-01] MEDS: amLODIPine TAB* 5 MG PO SCH (09:50)
[2019-03-01] MEDS: Thiamine TAB* 100 MG TAB PO SCH (09:51)
[2019-03-01] MEDS: RiFAXimin* 550 MG TAB PO SCH (09:51)
[2019-03-01] MEDS: Lidocaine PATCH 5%* 1 PATCH TRANSDERM SCH (09:51)
[2019-03-01] MEDS: Propranolol LA CAP* 60 MG PO SCH (09:51)
[2019-03-01] MEDS: Primidone TAB(*) 250 MG PO SCH (09:52)
[2019-03-01] MEDS: Lactobacillus Acidophilus* 1 TAB PO SCH (09:52)
== END 2019-03-01 11:20 | disposition home health service (06) | DRG 135 ==
LOC: ED 16:19 → MED 02-24 02:12
PROVIDERS: ADMIT Internal Medicine; ATTEND Internal Medicine
DX: S22.42XA Multiple fractures of ribs, left side, initial encounter for closed fracture (principal); S32.019A Unspecified fracture of first lumbar vertebra, initial encounter for closed fracture; S32.029A Unspecified fracture of second lumbar vertebra, initial encounter for closed fracture; S32.039A Unspecified fracture of third lumbar vertebra, initial encounter for closed fracture; S32.049A Unspecified fracture of fourth lumbar vertebra, initial encounter for closed fracture; S32.059A Unspecified fracture of fifth lumbar vertebra, initial encounter for closed fracture; S02.2XXA Fracture of nasal bones, initial encounter for closed fracture; S22.41XA Multiple fractures of ribs, right side, initial encounter for closed fracture; I10 Essential (primary) hypertension; W01.0XXA Fall on same level from slipping, tripping and stumbling without subsequent striking against object, initial encounter; K70.10 Alcoholic hepatitis without ascites; D69.6 Thrombocytopenia, unspecified; F10.129 Alcohol abuse with intoxication, unspecified; Y90.7 Blood alcohol level of 200-239 mg/100 ml; R29.6 Repeated falls; E29.1 Testicular hypofunction; G25.0 Essential tremor; Z86.73 Personal history of transient ischemic attack (TIA), and cerebral infarction without residual deficits; Z88.1 Allergy status to other antibiotic agents; Z82.49 Family history of ischemic heart disease and other diseases of the circulatory system; Y92.89 Other specified places as the place of occurrence of the external cause; Z88.0 Allergy status to penicillin
CPT/HCPCS: 36415; 70450; 70486; 71260; 74177; 80048; 80053; 80074; 80076; 80320; 83605; 83735; 84100; 85025; 85027; 85060; 85610; 85730; 99284; A9270-GY; G0480; G8978-GP-CJ; G8979-GP-CI; J2060; J2270; J3411; Q9967

== ENCOUNTER 2019-05-30 17:36 | Emergency (ER) | payer BC ==
--- NOTE | 2019-05-30 18:42 | ED ---
Altered Mental Status - HPI Summary HPI Summary: Pt is a 58 y/o M presenting to the ED with a chief complaint of confusion. Hx given by pt and pts friend. Over the past two weeks, he has had increased confusion, issues with remembering some details, and has been making confusing statements, including telling the police that the pts friend was missing even though she was right next to him. He notes he has not been eating, he has been wretching/vomiting, accompanied by a good amount of diarrhea. Pts friend also notes she [place], and he said There you are, like they had been together previously. The pt has hx of alcoholism as well as a stroke, and on this specific day he had been drinking out of a 24oz can of beer, he was looking for a senior maintenance machinist, and had pipe prosthetics technician in his pocket. Pt also notes his sleep has been a mess lately. He denies visual changes. - History Of Current Complaint Chief Complaint: EDGeneral Stated Complaint: MHE PER EMS Time Seen by Provider: 05/30/19 18:06 Hx Obtained From: Patient Onset/Duration: Still Present, Gradually Timing: Intermittent, Lasting Hours Severity Initially: Moderate Severity Currently: Moderate Character: Confusion Aggravating Factor(s): Nothing Alleviating Factor(s): Nothing Associated Signs And Symptoms: Positive: Vomiting - Allergies/Home Medications Allergies/Adverse Reactions: Allergies Allergy/AdvReac Type Severity Reaction Status Date / Time amoxicillin Allergy GI Upset Verified 05/30/19 17:51 PMH/Surg Hx/FS Hx/Imm Hx Previously Healthy: Yes Endocrine/Hematology History: Denies: Hx Diabetes, Hx Thyroid Disease Cardiovascular History: Reports: Hx Hypertension - DOES TAKE MEDICATIONS Denies: Hx Pacemaker/ICD Respiratory History: Denies: Hx Asthma, Hx Chronic Obstructive Pulmonary Disease (COPD) GI History: Denies: Hx Ulcer History: Denies: Hx Renal Disease Sensory History: Reports: Hx Contacts or Glasses Denies: Hx Hearing Aid Opthamlomology History: Reports: Hx Contacts or Glasses Psychiatric History: Reports: Hx Anxiety, Hx Depression, Hx Inpatient Treatment , Hx Community Mental Health Tx, Hx Substance Abuse Denies: Hx Attention Deficit Hyperactivity Disorder, Hx Eating Disorder, Hx Panic Disorder, Hx Post Traumatic Stress Disorder, Hx Schizophrenia, Hx Bipolar Disorder, Hx Suicide Attempt, Hx of Violent Episodes Against Others, Other Psychiatric Issues/Disorders - Surgical History Surgery Procedure, Year, and Place: EUF SCAN OF PANCREAS AND LIVER (LAP); - Immunization History Date of Tetanus Vaccine: UTD Date of Influenza Vaccine: NO Infectious Disease History: No Infectious Disease History: Denies: Hx Hepatitis, Hx Human Immunodeficiency Virus (HIV), Traveled Outside the [place] in Last 30 Days - Family History Known Family History: Positive: Hypertension - Social History Alcohol Use: Daily Alcohol Amount: Unk exact amount of daily ETOH Hx Substance Use: No Substance Use Type: Reports: None Hx Tobacco Use: No Smoking Status (MU): Never Smoked Tobacco Review of Systems Positive: Other - decreased appetite, sleep disruption Eyes: Negative Positive: Vomiting, Diarrhea Neurological: Other - confusion, memory loss All Other Systems Reviewed And Are Negative: Yes Physical Exam - Summary Physical Exam Summary: Constitutional: Well-developed, Well-nourished, Alert. (-) Distressed Skin: Warm, Dry HENT: Normocephalic; Atraumatic Eyes: Conjunctiva normal Neck: Musculoskeletal ROM normal neck. (-) JVD, (-) Stridor, (-) Tracheal deviation Cardio: Rhythm regular, rate normal, Heart sounds normal; Intact distal pulses. Radial pulses are 2+ and symmetric. (-) Murmur Pulmonary/Chest wall: Effort normal. (-) Respiratory distress, (-) Wheezes, (-) Rales Abd: Soft. (-) Tenderness, (-) Distension, (-) Guarding, (-) Rebound Musculoskeletal: (-) Edema Lymph: (-) Cervical adenopathy Neuro: Alert, Oriented x3, Strength normal, Cranial nerves II-XII are grossly intact. (-) Dysmetria, (-) Nystagmus, (-) Ataxia by finger to nose testing, (-) Sensory deficit. Ambulates with normal gait. Psych: Mood and affect Normal Triage Information Reviewed: Yes Vital Signs On Initial Exam: Initial Vitals Temp Pulse Resp BP Pulse Ox 98.1 F 66 18 113/64 99 05/30/19 17:40 05/30/19 17:40 05/30/19 17:40 05/30/19 17:40 05/30/19 17:40 Vital Signs Reviewed: Yes - Tiffany Coma Scale Best Eye Response: 4 - Spontaneous Best Motor Response: 6 - Obeys Commands Best Verbal Response: 5 - Oriented Coma Scale Total: 15 Procedures - Sedation Patient Received Moderate/Deep Sedation with Procedure: No Diagnostics - Vital Signs Vital Signs Temp Pulse Resp BP Pulse Ox 05/30/19 17:40 98.1 F 66 18 113/64 99 - Laboratory Result Diagrams: 05/30/19 18:44 05/30/19 18:44 Lab Statement: Any lab studies that have been ordered have been reviewed, and results considered in the medical decision making process. - CT Brain CT CT Interpretation Completed By: Radiologist Summary of CT Findings: 1. No acute intracranial findings or hemorrhage. 2. Decreased size of area of decreased density in the posterior aspect of the left basal ganglia, corresponding to site of previous parenchymal hemorrhage. ED physician has reviewed this report. Altered Mental Statu Course/Dx - Course Course Of Treatment: Patient is here with 2 weeks of worsening confusion. Patient is answering questions appropriately here but is providing answers are slightly different than his ex-fiance states actually happened. Patient had a normal neurologic exam with normal gait. Patient retakes climbing on a daily basis. Patient had a CT head which showed no change from baseline. Patient had blood performed showed mild hyponatremia and LFT elevation consistent with his chronic alcohol abuse. Patient had a pneumonia which was borderline abnormal. Patient had negative UA for UTI. Patient has follow-up with his primary care doctor tomorrow. Dr. Fried was called and did not think patient needs admission. - Diagnoses Provider Diagnoses: Altered mental status, Alcohol addiction Discharge ED - Sign-Out/Discharge Documenting (check all that apply): Patient Departure - Discharge Plan Condition: Stable Disposition: HOME Patient Education Materials: Abuse of Alcohol (ED), Altered Mental Status (ED) Referrals: Luc Hartley MD [Primary Care Provider] - Additional Instructions: Please continue to take your Thiamine. Follow up with your primary care provider tomorrow morning at your scheduled appointment. Return to the emergency department with any new or worsening symptoms. - Billing Disposition and Condition Condition: STABLE Disposition: Home - Attestation Statements Document Initiated by Scribe: Yes Documenting Scribe: Kerline Neff Provider For Whom Eliotibe is Documenting (Include Credential): Kayode Webb MD. Scribe Attestation: Kerline Sewell, scribed for Kayode Webb MD. on 05/30/19 at 2131. Scribe Documentation Reviewed: Yes Provider Attestation: The documentation as recorded by the elliott, Kerline Neff accurately reflects the service I personally performed and the decisions made by me, Kayode Webb MD. Status of Elliott Document: Viewed Consult Consult: 1950 - I spoke with Dr. Fried who recommended checking an ammonia level and a UA. If they are negative, he can be d/c'ed home to f/u with him.
[2019-05-30 18:50] LABS: Hematocrit 34 % (42-52); Hemoglobin 11.9 g/dL (14.0-18.0); Mean Corpuscular HGB Conc 35 g/dL (31-36); Mean Corpuscular Hemoglobin 35 pg (27-31); Mean Corpuscular Volume 99 fL (80-94); Mean Platelet Volume 7.9 fL (7.4-10.4); Platelet Count 234 10^3/uL (150-450); Red Blood Count 3.43 10^6 /uL (4.18-5.48); Red Cell Distribution Width 15 % (10-15)
[2019-05-30 19:04] LABS: INR 0.87 (0.82-1.09)
[2019-05-30 19:11] LABS: ALT 65 U/L (7-52); AST 92 U/L (13-39); Albumin 4.2 g/dL (3.2-5.2); Albumin/Globulin Ratio 1.5 (1-3); Alkaline Phosphatase 184 U/L (34-104); Anion Gap 5 mmol/L (2-11); BUN/Creatinine Ratio 20.7 (8-20); Blood Urea Nitrogen 12 mg/dL (6-24); CO2 Carbon Dioxide 31 mmol/L (22-32); Calcium 9.1 mg/dL (8.6-10.3); Chloride 94 mmol/L (101-111); EGFR African American 174.1 (>60); EGFR Non-African American 143.9 (>60); Globulin 2.8 g/dL (2-4); Glucose 99 mg/dL (70-100); Potassium 3.8 mmol/L (3.5-5.0); Sodium 130 mmol/L (135-145)
[2019-05-30 19:22] LABS: Alcohol < 10 mg/dL (<10)
[2019-05-30 19:25] LABS: ABS Basophils 0.1 10^3/ul (0-0.2); ABS Eosinophils 0.1 10^3/ul (0-0.6); ABS Lymphocytes 0.7 10^3/ul (1.0-4.8); ABS Monocytes 1.4 10^3/ul (0-0.8); ABS Neutrophils 2.7 10^3/ul (1.5-7.7); Eosinophil % 2.5 %
[2019-05-30] MEDS ORDERED: Thiamine TAB* 100 MG TAB PO ONE (19:54)
[2019-05-30 20:29] LABS: Urine Appearance Clear; Urine Bacteria Absent (Absent); Urine Bilirubin 1+ (Negative); Urine Blood Negative (Negative); Urine Color Yellow; Urine Glucose Negative (Negative); Urine Ketones 1+ (Negative); Urine Nitrite Negative (Negative); Urine Protein 1+(30 mg/dL) (Negative); Urine Red Blood Cell 1+(3-5/hpf) (Absent); Urine Specific Gravity 1.021 (1.010-1.030); Urine Urobilinogen Negative (Negative); Urine White Blood Cell Absent (Absent)
[2019-05-30 21:15] VITALS: BP 126/69
== END 2019-05-30 21:13 | disposition home or self-care (01) ==
LOC: ED 17:36
DX: R41.82 Altered mental status, unspecified (principal); F10.20 Alcohol dependence, uncomplicated; I10 Essential (primary) hypertension; F41.9 Anxiety disorder, unspecified; Z88.0 Allergy status to penicillin; Z79.899 Other long term (current) drug therapy
CPT/HCPCS: 36415; 70450; 80053; 80320; 81003; 81015; 82140; 85025; 85610; 99282; A9270-GY; G0480

== ENCOUNTER 2019-05-31 18:03 | Observation (INO) | payer BC ==
--- NOTE | 2019-05-31 19:06 | ED ---
Altered Mental Status - HPI Summary HPI Summary: Pt is a 58 y/o M with a history of CVA, alcohol abuse, hepatic encephalopathy presenting to the ED brought in on a 9.41 for altered mental status. Per the [place] [employer], the pts confusion over the last day has gotten worse. The pt called 911 today because he thought there was someone trapped in his chair, and upon [employer] arrival, the chair had been destroyed. The pt states he asked 911 because he felt trapped in the chair and his however, he could not breathe, and they told him that he can appreciate he should cut it open. He also notes he was nervous about his girlfriend not coming home today or answering her phone today, and some increased confusion. Although, he was here yesterday, and followed up with his PCP this morning who stated that everything was normal. He denies fever. Patient denies alcohol use, alcohol use or is negative. Denies a history of drug use however fiance stated yesterday he had used drugs in the past. - History Of Current Complaint Chief Complaint: EDAltMentalStatus Stated Complaint: 941 PER LAW Time Seen by Provider: 05/31/19 18:11 Hx Obtained From: Patient, Other: - [employer] Onset/Duration: Still Present, Gradually Timing: Constant, Lasting Days Severity Initially: Moderate Severity Currently: Moderate Character: Confusion Aggravating Factor(s): Unknown Alleviating Factor(s): Unknown Associated Signs And Symptoms: Negative: Fever - Allergies/Home Medications Allergies/Adverse Reactions: Allergies Allergy/AdvReac Type Severity Reaction Status Date / Time amoxicillin Allergy GI Upset Verified 05/30/19 17:51 PMH/Surg Hx/FS Hx/Imm Hx Previously Healthy: Yes Endocrine/Hematology History: Denies: Hx Diabetes, Hx Thyroid Disease Cardiovascular History: Reports: Hx Hypertension - DOES TAKE MEDICATIONS Denies: Hx Pacemaker/ICD Respiratory History: Denies: Hx Asthma, Hx Chronic Obstructive Pulmonary Disease (COPD) GI History: Denies: Hx Ulcer History: Denies: Hx Renal Disease Sensory History: Reports: Hx Contacts or Glasses Denies: Hx Hearing Aid Opthamlomology History: Reports: Hx Contacts or Glasses Psychiatric History: Reports: Hx Anxiety, Hx Depression, Hx Inpatient Treatment , Hx Community Mental Health Tx, Hx Substance Abuse Denies: Hx Attention Deficit Hyperactivity Disorder, Hx Eating Disorder, Hx Panic Disorder, Hx Post Traumatic Stress Disorder, Hx Schizophrenia, Hx Bipolar Disorder, Hx Suicide Attempt, Hx of Violent Episodes Against Others, Other Psychiatric Issues/Disorders - Surgical History Surgery Procedure, Year, and Place: EUF SCAN OF PANCREAS AND LIVER (LAP); - Immunization History Date of Tetanus Vaccine: UTD Date of Influenza Vaccine: NO Infectious Disease History: No Infectious Disease History: Denies: Hx Hepatitis, Hx Human Immunodeficiency Virus (HIV), Traveled Outside the [place] in Last 30 Days - Family History Known Family History: Positive: Hypertension - Social History Alcohol Use: Daily Alcohol Amount: pt states 3-4beers Hx Substance Use: No Substance Use Type: Reports: None Hx Tobacco Use: No Smoking Status (MU): Never Smoked Tobacco Review of Systems Negative: Fever Neurological: Other - confusion Positive: Other - hallucinations All Other Systems Reviewed And Are Negative: Yes Physical Exam - Summary Physical Exam Summary: Constitutional: appears older than stated age. Skin: Warm, Dry HENT: Normocephalic; Atraumatic Eyes: Conjunctiva normal Neck: Musculoskeletal ROM normal neck. (-) JVD, (-) Stridor, (-) Nuchal rigidity Cardio: Rhythm regular, rate normal, Heart sounds normal; Intact distal pulses; Radial pulses are 2+ and symmetric. (-) Murmur Pulmonary/Chest wall: Effort normal. (-) Respiratory distress, (-) Wheezes, (-) Rales Abd: Soft, (-) tenderness, (-) Distension, (-) Guarding, (-) Rebound Musculoskeletal: (-) Edema. Essential tremor of bilateral UE. Lymph: (-) Cervical adenopathy Neuro: Alert, Oriented x3 Psych: Mood and affect Normal Triage Information Reviewed: Yes Vital Signs On Initial Exam: Initial Vitals Temp Pulse Resp BP Pulse Ox 98.3 F 57 16 131/81 99 05/31/19 18:17 05/31/19 18:17 05/31/19 18:17 05/31/19 18:17 05/31/19 18:17 Vital Signs Reviewed: Yes Procedures - Sedation Patient Received Moderate/Deep Sedation with Procedure: No Diagnostics - Vital Signs Vital Signs Temp Pulse Resp BP Pulse Ox 05/31/19 18:17 98.3 F 57 16 131/81 99 - Laboratory Result Diagrams: 05/31/19 19:25 05/31/19 19:25 Lab Statement: Any lab studies that have been ordered have been reviewed, and results considered in the medical decision making process. Re-Evaluation - Re-Evaluation 1st re-eval Re-Evaluation Time: 20:35 Change: Unchanged Comment: Will have mental health see the pt after speaking with Dr. Gerber who does not think the patient has a medical cause for his encephalopathy. 2nd re-eval Re-Evaluation Time: 21:27 Change: Unchanged Comment: Reviewed visit from yesterday, pt's ex-fiancee found him in the commons last week with a can of beer and pipe client partner in his pocket, confused. After performing UDS, pt is positive for cannabinoids and barbiturates. Altered Mental Statu Course/Dx - Course Course Of Treatment: 58-year-old male w history of CVA, hepatic encephalopathy, alcohol abuse, who presents with altered mental status/delusions. Patient has no known history of psychiatric disease. Differential: Given that this patient has normal O2, BG, hypoxia and hypoglycemia/DKA less likely. DDx still includes: alcohol, hepatic encephalopathy, electrolyte abnl, thyroid issues, infection, drug overdose, uremia, trauma, encephalopathy/encephalitis, psych. Patient had workup yesterday for similar including normal head CT, labs mildly elevated ammonia, temperature 20/30. Given patient's review presentation, we' ll check labs, we'll not repeat head CT. We'll check a urine drug screen given possible history of marijuana use per extensive yesterday. Given thiamine IV. We'll have psych evaluate him for fixed delusions. - Diagnoses Provider Diagnoses: Hallucinations Discharge ED - Sign-Out/Discharge Documenting (check all that apply): Sign-Out Patient Signing out patient TO: Tala Us - Discharge Plan Condition: Stable Referrals: Luc Hartley MD [Primary Care Provider] - - Billing Disposition and Condition Condition: STABLE - Attestation Statements Document Initiated by Scribe: Yes Documenting Scribe: Kerline Neff Provider For Whom Scribe is Documenting (Include Credential): Wesley Zamarripa MD. Scribe Attestation: Kerline Sewell, scribed for Wesley Zamarripa MD. on 05/31/19 at 2212. Scribe Documentation Reviewed: Yes Provider Attestation: The documentation as recorded by the scribe, Kerline Neff accurately reflects the service I personally performed and the decisions made by me, Wesley Zamarripa MD. Status of Scribe Document: Viewed
[2019-05-31] MEDS ORDERED: Thiamine INJ* 500 MG in NS 0.9% 250 ML* 250 ML IV ONE (19:09)
[2019-05-31 19:32] LABS: Hematocrit 33 % (42-52); Hemoglobin 11.4 g/dL (14.0-18.0); Mean Corpuscular HGB Conc 34 g/dL (31-36); Mean Corpuscular Hemoglobin 34 pg (27-31); Mean Corpuscular Volume 100 fL (80-94); Mean Platelet Volume 7.8 fL (7.4-10.4); Platelet Count 231 10^3/uL (150-450); Red Blood Count 3.34 10^6 /uL (4.18-5.48); Red Cell Distribution Width 15 % (10-15); White Blood Count 3.5 10^3/uL (3.5-10.8)
[2019-05-31 19:51] LABS: Albumin 3.8 g/dL (3.2-5.2); Albumin/Globulin Ratio 1.5 (1-3); BUN/Creatinine Ratio 18.5 (8-20); Calcium 8.6 mg/dL (8.6-10.3); EGFR African American 189.1 (>60); EGFR Non-African American 156.3 (>60); Globulin 2.5 g/dL (2-4); Potassium 3.5 mmol/L (3.5-5.0); Total Bilirubin 0.6 mg/dL (0.2-1.0); Total Protein 6.3 g/dL (6.4-8.9)
[2019-05-31 20:31] LABS: ABS Eosinophils 0.1 10^3/ul (0-0.6); ABS Lymphocytes 0.6 10^3/ul (1.0-4.8); ABS Monocytes 1.1 10^3/ul (0-0.8); ABS Neutrophils 1.6 10^3/ul (1.5-7.7); Eosinophil % 3.1 %; Lymphocyte % 17.6 %
[2019-05-31 21:25] LABS: Urine Benzodiazepine Screen None Detected (None Detect); Urine Opiates Screen None Detected (None Detect)
[2019-05-31] MEDS ORDERED: Magnesium Oxide TAB* 400 MG PO ONE (22:13)
[2019-05-31] MEDS ORDERED: Primidone TAB(*) 250 MG PO ONE (22:14)
[2019-05-31] MEDS ORDERED: Propranolol TAB* 20 MG PO ONE (22:14)
[2019-05-31] MEDS ORDERED: RiFAXimin* 550 MG TAB PO ONE (22:14)
--- NOTE | 2019-05-31 22:32 | ED ---
Progress - Progress Note Progress Note: The patient is a sign-out from Dr. Wesley Zamarripa MD, to Dr. Tala Us MD, at change of shift at 2200 on 05/31/2019, pending mental health evaluation and disposition. toxicology positive for barbiturates and cannabinoids 0100 - mental health latin professor states that they do not believe the pt is suffering symptoms of psychiatric origin at this time but rather from a medical standpoint 0115 - Dr. Gerber, hospitalist, accepts the pt for admission Re-Evaluation - Re-Evaluation 1st re-eval Re-Evaluation Time: 20:35 Change: Unchanged Comment: Will have mental health see the pt after speaking with Dr. Gerber who does not think the patient has a medical cause for his encephalopathy. 2nd re-eval Re-Evaluation Time: 21:27 Change: Unchanged Comment: Reviewed visit from yesterday, pt's ex-fiancee found him in the commons last week with a can of beer and pipe bottle selector in his pocket, confused. After performing UDS, pt is positive for cannabinoids and barbiturates. Course/Dx - Course Course Of Treatment: The patient is a sign-out from Dr. Wesley Zamarripa MD, to Dr. Tala Us MD, at change of shift at 2200 on 05/31/2019, pending mental health evaluation and disposition. Toxicology report positive for barbiturates and cannabinoids. Oscar Myers, mental health latin professor, states that they do not believe the pt is suffering symptoms of psychiatric origin at this time but rather from a medical standpoint. I discussed the pt's case with Dr. Gerber from the hospitalist services, who accepts the pt for admission. - Diagnoses Provider Diagnoses: Hallucinations - Provider Notifications Discussed Care Of Patient With: Jayden Gerber - hospitalist Time Discussed With Above Provider: 01:15 Instructed by Provider To: Admit As Observation - Dr. Gerber accepts the pt for admission. Discharge ED - Sign-Out/Discharge Documenting (check all that apply): Patient Departure - Pt accepted for admission by Dr. Gerber., Receiving Sign-Out Receiving patient FROM: Wesley Zamarripa - Patient is a sign-out from Dr. Wesley Zamarripa MD, at 2200 on 05/31/2019, pending MHE and disposition. - Discharge Plan Condition: Stable Disposition: ADMITTED TO [facility] Referrals: Luc Hartley MD [Primary Care Provider] - - Billing Disposition and Condition Condition: STABLE Disposition: Admitted to [facility] - Attestation Statements Document Initiated by Eliotibe: Yes Documenting Scribe: La Spangler Provider For Whom Eliotibglenys is Documenting (Include Credential): Dr. Tala Us MD Scribe Attestation: La Sewell, scribed for Dr. Tala Us MD on 06/01/19 at 0352. Scribe Documentation Reviewed: Yes Provider Attestation: The documentation as recorded by the La gallagher accurately reflects the service I personally performed and the decisions made by me, Dr. Tala Us MD Status of Scribe Document: Viewed Procedures - Sedation Patient Received Moderate/Deep Sedation with Procedure: No
[2019-05-31] MEDS ORDERED: Ibuprofen TAB* 400 MG PO ONE (23:25)
[2019-06-01] MEDS ORDERED: oxyCODONE TAB* 5 MG TAB PO PRN (03:38)
[2019-06-01] MEDS ORDERED: LORazepam TAB(*) 1 MG PO SCH (04:00)
[2019-06-01 06:24] LABS: ABS Basophils 0.1 10^3/ul (0-0.2); ABS Eosinophils 0.1 10^3/ul (0-0.6); ABS Lymphocytes 0.7 10^3/ul (1.0-4.8); ABS Monocytes 1.2 10^3/ul (0-0.8); ABS Neutrophils 1.9 10^3/ul (1.5-7.7); Eosinophil % 2.2 %; Hematocrit 34 % (42-52); Hemoglobin 11.6 g/dL (14.0-18.0); Lymphocyte % 17.7 %; Mean Corpuscular HGB Conc 34 g/dL (31-36); Mean Corpuscular Hemoglobin 34 pg (27-31); Mean Corpuscular Volume 100 fL (80-94); Mean Platelet Volume 8.3 fL (7.4-10.4); Platelet Count 228 10^3/uL (150-450); Red Blood Count 3.43 10^6 /uL (4.18-5.48); Red Cell Distribution Width 15 % (10-15); White Blood Count 4.1 10^3/uL (3.5-10.8)
[2019-06-01 06:38] LABS: Albumin 3.6 g/dL (3.2-5.2); Albumin/Globulin Ratio 1.6 (1-3); BUN/Creatinine Ratio 20.6 (8-20); Calcium 8.7 mg/dL (8.6-10.3); EGFR African American 158.3 (>60); EGFR Non-African American 130.8 (>60); Globulin 2.3 g/dL (2-4); Potassium 3.7 mmol/L (3.5-5.0); Total Bilirubin 0.7 mg/dL (0.2-1.0); Total Protein 5.9 g/dL (6.4-8.9)
--- NOTE | 2019-06-01 07:05 | HP ---
CC: Dr. Luc Hartley* ADMISSION HISTORY AND PHYSICAL: DATE OF ADMISSION: 06/01/19 CHIEF COMPLAINT: Altered mental status. HISTORY OF PRESENT ILLNESS: This is a 58-year-old gentleman with history of a stroke, alcohol abuse with hepatic encephalopathy, came in with altered mental status. The patient was brought in by the police department both today and yesterday to the ER. He was sent home after a CAT scan yesterday was normal. He called 911 because he thought his girlfriend was trapped in his chair and he had to cut the cushions on the chair to get the person out. However, when the police arrived, they noticed that the chair was cut, there was no body at home except him. According to the patient's friend who brought the patient in the day prior to the ER, the patient has been having increased confusion over the last 2 weeks remembering some of the details and making some confusing statements stating that his friend has been missing, even though she was standing right next to him. The patient was recently sent home from alcohol rehab place; however, he is still drinking alcohol. Per ER document yesterday, the friend noted the patient is drinking out of a 24 ounce of beer can and was looking for a red cross executive director as he had some pipe news librarian in his pocket. Because of the patient's delirious and paranoid stories, Psychiatry was recommended to evaluate the patient. The mental health truck technician did not think that the patient was suffering from any psychiatric origin, even though from medical standpoint, the patient seems to be stable. He is otherwise oriented but was deemed unstable for discharge home, so Medicine is admitting the patient. The patient otherwise offers no other pain at this point and was stating that he is unsure if his stories of paranoia were due to him confusing his dreams versus reality and he is able to reiterate the same exact story about someone trapped in his chair and him needing to open up the chair for them. He states that he has been stressed out as there are a lot of people a few weeks ago at his home and he felt a little paranoid. He also states that he has not been taking some of his medications, especially the Valium as he still drinks alcohol and also did not bean picker the prescription for Valium. He did ask the nurse that he needed his evening dose of his prescription medications and suggesting that the patient may be compliant with medications. PAST MEDICAL HISTORY: Chronic alcohol abuse with alcoholic hepatitis and pseudocyst of the pancreas, essential tremor, and hepatic encephalopathy, hypogonadism, hypertension, previously treated tuberculosis exposure with isoniazid, history of hemorrhagic stroke without any residual defect, recently sustained a fall in February with a rib fracture and nosebleed. PAST SURGICAL HISTORY: He had had an endoscopic ultrasound of his pancreas to biopsy. HOME MEDICATIONS: The patient is listed to be on: 1. Oxycodone 5 mg every 6 hours p.r.n. for severe pain. 2. Diazepam 4 times a day as needed. 3. Amlodipine 10 mg oral daily. 4. Thiamine 100 mg oral daily. 5. Testosterone 1 mL IM weekly. 6. Tadalafil p.r.n. for ED. 7. Rifaximin 550 mg p.o. b.i.d. 8. Propranolol 20 mg 4 times a day p.r.n. for anxiety and 120 mg daily every morning. 9. Primidone 250 mg oral t.i.d. 10. Multivitamins 1 tablet oral daily. 11. Mag ox 400 mg p.o. b.i.d. 12. Loteprednol etabonate 5 mL drop both eyes daily. 13. Lidocaine patch transdermally daily. 14. Lactobacillus 1 tablet p.o. b.i.d. 15. Labetalol 100 mg p.o. b.i.d. 16. Ibuprofen 400 mg every 6 hours as needed for pain. 17. Folic acid 800 mg p.o. b.i.d. ALLERGIES: The patient is documented to be allergic to AMOXICILLIN. FAMILY HISTORY: Noncontributory. SOCIAL HISTORY: He has a heavy alcohol use. He has recently cut down. States that he does use marijuana occasionally, has used 1 within the last week and denies any barbiturate chews and denies taking his prescription for the benzodiazepine as he has not filled the prescription yet and previously documented that he lives with his ex-fiancee as they both share a home and is currently retired. The patient is otherwise full code and he designates Ayesha as his surrogate decision maker, who is his ex-girlfriend and lives close by. REVIEW OF SYSTEMS: A 14-point review of systems did not reveal any new information, other than what is mentioned in the HPI. PHYSICAL EXAMINATION GENERAL: The patient is awake, alert, oriented to time, place, and person at this point and understood that he was confused yesterday, no obvious confabulations at this point, no other delirious episode. VITAL SIGNS: In the ER, BP was noted to be 122/83, heart rate 60, respiration rate 16, saturating 94%, temperature was noted to be 98.3. HEAD AND NECK: Atraumatic, normocephalic. Bilateral pupils are reactive. Oral mucosa was moist. Neck: Supple. No jugular venous distention. LUNGS: Clear to auscultation bilaterally. No wheezing, rhonchi, or rales. HEART: S1, S2. Regular rate and rhythm. ABDOMEN: Soft, nontender, nondistended. EXTREMITIES: No cyanosis, clubbing, or edema. DIAGNOSTIC STUDIES/LAB DATA: CBC was unremarkable except for minimally decreased hemoglobin at 11.4, MCV elevated at 100. Comprehensive metabolic panel shows elevated AST, ALT. Ammonia level was within normal limits. Alkaline phosphatase was noted to be minimally elevated at 157. Urine toxicology was positive for barbiturates and cannabinoids and serum alcohol level was noted to be 15. Recent CT scan the day prior to this visit showed no acute intracranial hemorrhage, decreased size of area in the posterior aspect of left basal ganglia corresponding to the site of the previous parenchymal hemorrhage. IMPRESSION: This is a 58-year-old gentleman with alcohol abuse, previous hemorrhagic stroke without any residual defect, hepatic encephalopathy, still an active drinker, came in with paranoia and altered mental status, but now completely oriented. ASSESSMENT AND PLAN: 1. Altered mental status. Likely secondary to brief psychotic episode versus a delirious episode versus confabulation. There is no point in repeating another CAT scan as the CAT scan from the day prior was noted to be within normal limits. We could consider starting the patient on WAM protocol to rule out any Wernicke- Korsakoff syndrome and start the patient on thiamine and start the patient on Ativan to rule out any alcohol withdrawal causing delirium. 2. History of hepatic encephalopathy. Continue his home dose of rifaximin for now. 3. History of anxiety disorder. Continue his propranolol. 4. History of hypertension. Restart his amlodipine. 5. History of essential tremors. 6. History of hemorrhagic stroke. 7. DVT prophylaxis with sequential compression device. 8. Code status. Full code with the significant other Ayesha being the surrogate decision maker. [id number]/[facility] #: [id number] MTDD
[2019-06-01] MEDS ORDERED: Thiamine INJ* 500 MG in NS 0.9% 250 ML* 250 ML IV SCH (08:00)
[2019-06-01] MEDS ORDERED: Thiamine TAB* 100 MG TAB PO SCH (09:00)
[2019-06-01] MEDS ORDERED: Labetalol TAB* 100 MG PO SCH (09:00)
[2019-06-01] MEDS ORDERED: Lactobacillus Acidophilus* 1 TAB PO SCH (09:00)
[2019-06-01] MEDS ORDERED: Propranolol LA CAP* 60 MG PO SCH (09:00)
[2019-06-01] MEDS ORDERED: Lidocaine PATCH 5%* 1 PATCH TRANSDERM SCH (09:00)
[2019-06-01] MEDS ORDERED: Multivitamins/Minerals TAB PO SCH (09:00)
[2019-06-01] MEDS ORDERED: amLODIPine TAB* 5 MG PO SCH (09:00)
[2019-06-01] MEDS ORDERED: LOTEPREDNOL ETABONATE BOTH EYES SCH (09:00)
[2019-06-01] MEDS ORDERED: RiFAXimin* 550 MG TAB PO SCH (09:00)
[2019-06-01] MEDS ORDERED: Folic Acid TAB* 1 MG PO SCH (09:00)
[2019-06-01] MEDS: Primidone TAB(*) 250 MG PO SCH ×2 (09:46→16:31)
--- NOTE | 2019-06-01 10:30 | CONSULT ---
Consult Consult: Reason for consult: Psychiatric evaluation CC " It was so unusual" The patient was brought to [facility] after experiencing a episode where he saw his roommate get caught into a couch. He reported that it was dream like and said that I was still dreaming even though I was still awake. Denied access to firearms or stockpiles of medications. He reported his sleep to be erratic. He will go to sleep for 3 hours and wake up for 3 hours and go back to sleep. He noticed this change since having a stroke in September 2018. He reported a history of sleep walking as a child. He denied taking sleep aids. He reported diminished appetite. The patient denied suicidal and or homicidal ideation intent or plan. [place]D Denied feeling depressed. Denied having diminished interests which were found to be enjoyable in the past. Denied having crying spells , feeling empty inside , feelings of hopelessness , and worthlessness. Denied interruption of sleep , or feeling tired throughout the day. Denied loss of energy or lack of motivation to complete tasks. Denied overwhelming feelings of guilt or decreased concentration. Denied recurrent thoughts of . Denied thoughts that they would be better off . Anxiety Denied having symptoms of anxiety such as having times where heart feels that it is beating out of chest , sweaty palms, or shallow breathing. Denied having uncomfortable or intrusive thoughts. Denied feeling restless, high strung, or worrying too much most of the time. Bipolar Denied symptoms of soila such as having many ideas at once. Denied increased talkativeness where no one can interrupt. Denied feeling irritable most of the time while having an persistent abundance of energy most of the day without the use of energy drinks, stimulants, or recreational drug use. Denied an increase in intensity in goal directed activities. Denied having the decreased need to sleep for days , having prolonged elevated mood , or feeling on top of the world. Denied impulsive risky sexual encounters. Denied spending money recklessly , going on spending sprees wiping out savings. Denied impulsively traveling out of town or country, having super nieto, and unrealistic wealth or fame. Psychosis Does not endorse hearing things that other people do not hear or seeing things other people do not see other than the one isolated incident. Denied feeling that TV is making references. Denied feeling that people are spying , following , or reading their thoughts. Phobias: Patient denied having excessive fear of a particular thing or situation. Eating disorders: Patient denied having excessive eating habits or feelings of guilt after eating. Denied repeated episodes of self induced vomiting after eating. PTSD Denied flashbacks, nightmares and avoidance of a prior traumatic event. PAST PSYCHIATRIC HISTORY: Prior Diagnosis : None History of past Psychiatric Hospitalizations: No prior psychiatric admission. History of past suicide/homicide attempts : Denied past suicide attempts or self injurious behaviors. No history of violence. Outpatient follow-up: None Medications: Past trials of medications include alprazolam for anxiety during public speaking Guardianship: None. FAMILY HISTORY: - Suicide: Father by suicide. - Mental illness: Father depression - Substance abuse: Denied substance abuse among family members. SUBSTANCE ABUSE HISTORY: - EtOH: Drinks 1 beer daily, no blackouts or DTs - Tobacco: Denied using recently or in the past. - Cannabis: Denied - Heroin: Denied - Cocaine: Denied - Substance abuse treatment: Past substance abuse treatment SOCIAL HISTORY: - Denied a history of childhood physical and or sexual abuse Born in [place] and raised by both parents until his father when he was 11 years old . - Education: Completed college No history of special education. 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 Physical Exam: Please see Hand P Mental Status Exam on Admission APPEARANCE : 58 year old who appears stated age. Patient is not malodourous, and appears to have fair hygiene and grooming. BEHAVIOR: Cooperative , calm EYE CONTACT: Fair PSYCHOMOTOR ACTIVITY: No psychomotor agitation or retardation. MOVEMENTS: No abnormal movements observed. SPEECH : Normal rate, rhythm, volume and tone. MOOD : "Fine " AFFECT : Type is euthymic Range is full Mood Congruent THOUGHT PROCESS: Formulated and organized in a logical, linear goal directed manner. THOUGHT CONTENT: no delusions, obsessions, phobias or preoccupations. PERCEPTION: No current auditory or visual hallucinations. Doesnt appear to be responding to internal cues. No evidence of depersonalization , de-realization, or illusions SUICIDALITY Denied suicidal ideation, intent or plan. HOMICIDALITY Denied homicidal ideation, intent or plan. Insight/judgment: Fair insight and judgment ORIENTATION: Oriented to self, location, and time. 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 Assessment: 58 year old male with no past psychiatric history and recent even of seeing his roommate get wrapped into a couch was evalauted on the medical floor Plan # The patient does NOT require psychiatric inpatient admission at this time # Rule out medical etiology review Vitamin B12, TSH, RPR, CT brain # Management of medical issues by primary team # Thiamine given for possible WE # No objective signs of alcohol withdrawal or DTs # Recommend outpatient sleep study # Patient plans to follow up with PCP # Psychiatry will sign off, please consult again if you have any questions The patient was advised of the 24 hour / 7 days a week availability of the emergency room and to call 911 in the event of an emergency Sodium 134 mmol/L (135-145) L 06/01/19 05:46 Potassium 3.7 mmol/L (3.5-5.0) 06/01/19 05:46 BUN 13 mg/dL (6-24) 06/01/19 05:46 Creatinine 0.63 mg/dL (0.67-1.17) L 06/01/19 05:46 Calcium 8.7 mg/dL (8.6-10.3) 06/01/19 05:46 AST 61 U/L (13-39) H 06/01/19 05:46 ALT 47 U/L (7-52) 06/01/19 05:46
[2019-06-01 12:37] VITALS: BP 112/63
[2019-06-01 15:49] LABS: TSH (Thyroid Stimulating Horm) 1.14 mcIU/mL (0.34-5.60)
--- NOTE | 2019-06-01 17:07 | PN ---
Subjective Date of Service: 06/01/19 Objective Active Medications: Amlodipine Besylate (Norvasc Tab*) 10 mg PO DAILY [facility] Last Admin: 06/01/19 09:45 Dose: 10 mg Folic Acid (Folvite Tab*) 1 mg PO DAILY [facility] Last Admin: 06/01/19 09:46 Dose: 1 mg Lactobacillus Rhamnosus (Lactobacillus Acidophilus*) 1 tab PO BID [facility] Last Admin: 06/01/19 09:46 Dose: 1 tab Lidocaine (Lidoderm 5% Patch*) 1 patch TRANSDERM DAILY [facility] Last Admin: 06/01/19 09:46 Dose: 1 patch Lorazepam (Ativan Tab(*)) 0 - 6 mg PO .PER [facility] PROTOCOL [facility]; Protocol Multivitamins/Minerals (Theragran/Minerals Tab*) 1 tab PO DAILY [facility] Last Admin: 06/01/19 09:45 Dose: 1 tab Nft: Loteprednol Etabonate [Alrex] 1 Drop) 1 drop BOTH EYES DAILY [facility] Last Admin: 06/01/19 09:46 Dose: Not Given Oxycodone HCl (Roxycodone Tab*) 5 mg PO Q6H PRN PRN Reason: PAIN - SEVERE Pharmacy Profile Note (Lidocaine Patch Remove*) 1 note PATCH OFF 2100 [facility] Primidone (Mysoline Tab(*)) 250 mg PO TID [facility] Last Admin: 06/01/19 16:31 Dose: Not Given Propranolol HCl (Inderal La Cap*) 120 mg PO QAM [facility] Last Admin: 06/01/19 09:45 Dose: 120 mg Rifaximin (Xifaxan*) 550 mg PO BID [facility] Last Admin: 06/01/19 09:45 Dose: 550 mg Vital Signs - 8 hr 06/01/19 06/01/19 09:30 11:11 Temperature 98.2 F 97.4 F Pulse Rate 59 64 Respiratory 17 15 Rate Blood Pressure 126/67 112/63 (mmHg) O2 Sat by Pulse 99 99 Oximetry Oxygen Devices in Use Now: None Result Diagrams: 06/01/19 05:46 06/01/19 05:46 Assess/Plan/Problems-Billing Assessment:
--- NOTE | 2019-06-01 17:11 | DS ---
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 SECONDARY DIAGNOSES: 1. Alcohol use disorder complicated by alcoholic hepatitis and possible cirrhosis. 2. History of cirrhosis with hepatic encephalopathy. 3. Hypertension. 4. History of hemorrhagic stroke without residual deficits in early 2018. 5. Essential tremor. CONSULTS: Dr. Dorman of Psychiatry. DISCHARGE MEDICATIONS: 1. Amlodipine 10 mg daily. 2. Propranolol 120 mg extended release daily. 3. Primidone 250 mg 3 times a day. 4. Rifaximin 550 mg twice a day. 5. Thiamine 100 mg daily. 6. Testosterone 1 mL intramuscular injection weekly. 7. Tadalafil 1 tab as needed for erectile dysfunction. 8. Multivitamin 1 tab daily. 9. Magnesium oxide 400 mg twice a day. 10. Lidocaine patch 5% one patch transdermally daily. 11. Lactobacillus 1 tablet twice a day. 12. Ibuprofen 400 mg every 6 hours as needed for pain. 13. Folic acid 800 mcg daily. HISTORY OF PRESENT ILLNESS: Mr. Winchester is a 58-year-old man with a history of recent stroke without residual deficits, alcohol use disorder complicated by possible cirrhosis and hepatic encephalopathy, hypertension, essential tremor, who is presenting with altered mental status for 1 to 2 days. Two days ago, the patient was brought by the police department to the emergency room because he thought people were running around the outside of his home. His girlfriend, who he is currently in the process of with, did not see these young children running around the outside of the home. The patient became very paranoid and upset about seeing people outside of his home and called 911 and was brought to the emergency room. A CT scan was performed and was normal, and he was discharged home. Last night, the patient thought his girlfriend was trapped in an upholstered chair and he thought he had to cut away at the upholster in the chair in order to get her out. According to the patient's friend who brought him to the ER, he has been having increased confusion over the last 2 weeks and making confusing statements, stating that his friend had been missing even though she was standing right next to him. Also recently, the patient had been sent home from an alcohol rehab; however, he is again drinking alcohol. He reports drinking on average approximately 1 beer per day, although he does go days without alcohol and he does not experience withdrawal symptoms on those days. He does not binge drink. The patient denies psychiatric history. In the ER, he was deemed unsafe to discharge home, so Medicine was consulted to admit the patient. The patient states that he is not in any pain or distress, but he is unsure if his stories of paranoia were due to him confusing his dreams for reality. The patient denies taking Valium recently, which appears to be an outside medication. His last refill was over this summer. He is otherwise adherent to his medications. HOSPITAL COURSE: The patient was admitted to the medical service. A brain CT was not repeated as he had a normal brain CT 2 days ago. His symptoms completely resolved by morning time. CBC and basic metabolic panel were unremarkable for etiology of the patient's symptoms. B12 and TSH were also unremarkable. The patient was put on WAM protocol in case of alcohol withdrawal and he required no doses of lorazepam. He was seen and evaluated by Psychiatry who felt that his symptoms were due to an unspecified sleep-wake disorder with hypnopompic hallucinations. He was deemed safe for discharge, and recommended to continue following up with his outpatient therapist. PHYSICAL EXAMINATION: Vital Signs: Afebrile, heart rate 64, blood pressure 112 /63, respiratory rate 15, oxygen saturation 99% on room air. In general, he is a well-appearing man in no acute distress. He is alert and interactive, answers questions appropriately. HEENT: No tongue fasciculation. Sclerae anicteric. Neck: No JVD. Heart: Regular rate and rhythm. No murmurs, gallops , or rubs. Lungs: Clear to auscultation bilaterally. Abdomen: Soft, nontender , nondistended. Extremities: Warm and well perfused without evidence of edema. Intentional tremor bilaterally in hands. Neuro: A and O x3. No focal weakness. CN II through XII intact. DIAGNOSTIC STUDIES/LAB DATA: CBC notable for hemoglobin 11.6, which is the patient's baseline, with MCV 100. BMP notable for sodium 134, also patient's baseline, with normal creatinine. LFTs notable for AST elevation 61 consistent with alcohol use disorder. Urine tox positive for barbiturates, cannabinoids, and positive serum alcohol level of 15. Brain CT from 05/30/19 with no acute intracranial findings or hemorrhage, decreased size of area of decreased density in the posterior aspect of the left basal ganglia corresponding to site of previous parenchymal hemorrhage. DISCHARGE PLAN: The patient will be discharged home to continue following up with his primary care physician as well as his outpatient psychiatrist for ongoing treatment of alcohol use disorder. He should be referred for outpatient sleep study. His labetalol was discontinued, as he was not initiated on this medication during admission and his blood pressures and heart rate were within normal limits. The patient reports that he also recently started propranolol and he was educated not to take this with labetalol. The patient has not filled his narcotic prescriptions in a few months and he was encouraged to not take any extra doses of these medications after discharge, including oxycodone and diazepam. He was educated on return precautions, which included, but are not limited to fevers, chills, chest pain, worsening tremor or seizure. He should eat a healthy diet, low in processed foods and resume activity as tolerated. DISPOSITION: To home. CONDITION: Good. TIME SPENT: Approximately 60 minutes was spent on discharge of this patient, more than half of which was spent with care coordination at bedside for interview and exam. [id number]/[facility] #: [id number] HOLLY
--- NOTE | 2019-06-01 17:44 | PN ---
Hospitalist Progress Note Date of Service: 06/01/19 Patient's exgirlfriend Pavel who is current HCP on file, requested to speak to me at around 3pm today. I talked to patient before talking to Pavel, patient claimed that he didn't want to release any personal information to Pavel, but he didn't mind I listened to her. Pavel told me she was not engaged with Brayan any more, but she still helped him out sometimes as a friend. She told me Brayan was behaving differently for a few months, probably after Mar. Brayan had problem paying his bills, checking bills, paying his monthly fee to his ex- for quite a few months. But in the past 1-2 weeks, he had lots of hallucinations, and barely ate. She wrote down the thing that she saw in the past few months and shared with me. 1 week ago, she checked him in his studio, he put lubrication worker the door with arrow on it, saying "Kamran is here, please knock the door before coming". But in fact, Kamran who is his brother and was far in [place]. She bumped into him one day on the road, he was wearing his underwear. She also noticed that patient was not eating for the past 1-2 week, with nausea and vomiting. The only thing he ate is peanut butter because he thought that could stop his hiccup. Patient got upset with the fact that Pavel appeared and affected his discharge. I also talked patient's sister Fernanda Jacobson ([phone]) with the permission from patient. Again no patient information was released to her other than saying "he is in hospital right now" which patient agreed on before the conversation. Last wednesday, patient called her saying that "how Anirudh and Shania are at the door, I can't get them in. " Received a call from patient, "Pavel and Jasmin got lost". He had been mad since Aug but became more crazy now. She also pointed out her heavy alcohol use and marijuana use. At the end of the conversation, when I asked "Do you think he is safe if he goes back home?", she replied me "definitely no", "I can't even think about what will happen tonight" She also reiterated that she stayed 1.5 hour away from [place], she also had recent operation and she can't take care of patient. She does point that patient 's exwife and exgirlfriend stays in [place], and could potentially help but probably not much. Above conversation was conveyed to my attending. Psychiatry consultation was called, voicemail was left by Dr. Mon, no reply till my report I talked to patient again at 5:59am assessing mental capacity, He understand my concern about his safety, he felt nothing will change by staying overnight. He didn't foresee any risks related to his discharge as he felt he could handle at home. The only risk he could foresee is fall, which he felt the risk is minimal. I will he has mental capacity to decide leaving though he is probably not safe and lack of support returning back home.
[2019-06-01] MEDS ORDERED: Lidocaine Patch REMOVE* 1 NOTE MISC PATCH OFF SCH (21:00)
== END 2019-06-01 15:45 | disposition home or self-care (01) ==
LOC: ED 18:03 → INTOOBSV 06-01 03:33 → MED 06-01 03:33
PROVIDERS: ADMIT Internal Medicine; ATTEND Internal Medicine
DX: G47.20 Circadian rhythm sleep disorder, unspecified type (principal); R44.2 Other hallucinations; K70.10 Alcoholic hepatitis without ascites; F10.10 Alcohol abuse, uncomplicated; Z87.19 Personal history of other diseases of the digestive system; I10 Essential (primary) hypertension; Z86.73 Personal history of transient ischemic attack (TIA), and cerebral infarction without residual deficits; G25.0 Essential tremor; Z79.899 Other long term (current) drug therapy
CPT/HCPCS: 36415; 80053; 80307; 80320; 82140; 82607; 84443; 85025; 86780; 96365; 99283; A9270-GY; G0378; G0480; J3411

== ENCOUNTER 2019-06-02 16:35 | Emergency (ER) | payer BC ==
[2019-06-02 20:39] VITALS: BP 139/78
--- NOTE | 2019-06-02 21:35 | ED ---
Substance Abuse/Use - HPI Summary HPI Summary: 58 year old male returns to [facility] after being discharged several days ago with a request of alcohol detoxification. Patient is an alcohol abuser who was told by Dr. Fried to get an EEG. He currently is in no pain and feels normal. He reports drinking 2 beers during lunch. History of rib fracture that is healing. Smokes marijuana regularly. History of episodes of confusion that spontaneously resolved. Medications reviewed. Allergies noted. - History Of Current Complaint Chief Complaint: EDDetoxRequest Stated Complaint: DR ORDERED AN EEG PER PT Time Seen by Provider: 06/02/19 19:08 Hx Obtained From: Patient Onset/Duration of Drug/ETOH Abuse: Years Ingestion History: Type/Name Of Drug - ETOH, Amount Ingested - 2 beers during lunch today - Allergies/Home Medications Allergies/Adverse Reactions: Allergies Allergy/AdvReac Type Severity Reaction Status Date / Time amoxicillin Allergy GI Upset Verified 06/02/19 18:52 Home Medications: Home Medications RiFAXimin* [Xifaxan*] 550 mg PO BID 06/02/19 [History Confirmed 06/02/19] Tadalafil (Nf) [Cialis (NF)] 5 mg PO Q36H PRN 06/02/19 [History Confirmed ] PMH/Surg Hx/FS Hx/Imm Hx Endocrine/Hematology History: Denies: Hx Diabetes, Hx Thyroid Disease Cardiovascular History: Reports: Hx Hypertension - DOES TAKE MEDICATIONS Denies: Hx Pacemaker/ICD Respiratory History: Denies: Hx Asthma, Hx Chronic Obstructive Pulmonary Disease (COPD) GI History: Denies: Hx Ulcer History: Denies: Hx Renal Disease Sensory History: Reports: Hx Contacts or Glasses Denies: Hx Hearing Aid Opthamlomology History: Reports: Hx Contacts or Glasses Psychiatric History: Reports: Hx Anxiety, Hx Depression, Hx Inpatient Treatment , Hx Community Mental Health Tx, Hx Substance Abuse - Hx ETOH, Other Psychiatric Issues/Disorders - 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 Denies: Hx Attention Deficit Hyperactivity Disorder, Hx Eating Disorder, Hx Panic Disorder, Hx Post Traumatic Stress Disorder, Hx Schizophrenia, Hx Bipolar Disorder, Hx Suicide Attempt, Hx of Violent Episodes Against Others - Surgical History Surgery Procedure, Year, and Place: EUF SCAN OF PANCREAS AND LIVER (LAP); - Immunization History Date of Tetanus Vaccine: UTD Date of Influenza Vaccine: NO Infectious Disease History: No Infectious Disease History: Denies: Hx Hepatitis, Hx Human Immunodeficiency Virus (HIV), Traveled Outside the [place] in Last 30 Days - Family History Known Family History: Positive: Hypertension - Social History Alcohol Use: Daily Alcohol Amount: Varies- "1-4 beers" Hx Substance Use: No Substance Use Type: Reports: None Hx Tobacco Use: No Smoking Status (MU): Never Smoked Tobacco Review of Systems Negative: Fever Negative: Myalgia All Other Systems Reviewed And Are Negative: Yes Physical Exam - Summary Physical Exam Summary: Constitutional: Well-developed, Well-nourished, Alert. (-) Distressed Skin: Warm, Dry HENT: Normocephalic; Atraumatic Eyes: Conjunctiva normal Neck: Musculoskeletal ROM normal neck. (-) JVD, (-) Stridor, (-) Tracheal deviation Cardio: Rhythm regular, rate normal, Heart sounds normal; Intact distal pulses; Radial pulses are 2+ and symmetric. (-) Murmur Pulmonary/Chest wall: Effort normal. (-) Respiratory distress, (-) Wheezes, (-) Rales Abd: Soft, (-) tenderness, (-) Distension, (-) Guarding, (-) Rebound Musculoskeletal: (-) Edema Lymph: (-) Cervical adenopathy Neuro: Alert, Oriented x3 Psych: Mood and affect Normal Triage Information Reviewed: Yes Vital Signs On Initial Exam: Initial Vitals Temp Pulse Resp BP Pulse Ox 97.8 F 68 20 120/77 97 06/02/19 16:42 06/02/19 16:42 06/02/19 16:42 06/02/19 16:42 06/02/19 16:42 Vital Signs Reviewed: Yes Procedures - Sedation Patient Received Moderate/Deep Sedation with Procedure: No Diagnostics - Vital Signs Vital Signs Temp Pulse Resp BP Pulse Ox 06/02/19 20:38 97.8 F 62 16 139/78 97 06/02/19 16:42 97.8 F 68 20 120/77 97 - Laboratory Lab Statement: Any lab studies that have been ordered have been reviewed, and results considered in the medical decision making process. Re-Evaluation - Re-Evaluation First Eval Re-Evaluation Time: 20:00 Change: Unchanged Comment: Patient agrees with plan of referral to an outpatient detox center. Course/Dx - Course Course Of Treatment: Patient is here for the third time this week. Patient was seen on Wednesday by myself where he did appear confused but had a grossly unremarkable workup outside of labs consistent with chronic alcohol abuse. Patient returned on Wednesday and was admitted by Dr. Zamarripa. 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 Patient had a negative work up by the medicine team for any underlying cause of his symptoms. Patient does need an EEG which was not performed as an inpatient and patient supposedly was going to get it today but was drinking before sp he could not get it. Patient was brought in by his ex-fiance, Kaylie, for possible detox and EEG. Patient was able 3 upon arrival here with no evidence of tachycardia. Patient does not think he needs detox and does not think he has now call addiction. I spent 20 minutes talking to [place] who thinks patient is unsafe to live by himself but she's been unable to find anyone to help him. Patient was offered possible placement for detox through social work but did not want that performed. Patient had an Adult Protective Services case filed against him. Patient was given [facility] and was encouraged to follow-up in the morning with them. - Diagnoses Provider Diagnoses: Alcohol abuse - Physician Notifications Discussed Care Of Patient With: Robert Fried - Neurosurgery Time Discussed With Above Provider: 19:25 Instructed by Provider To: Other - Dr. Fried says EEG should have been done today but ex doug said tht he was already drinking. He should not be admited to [facility] for detox. Spoke to ex-doug Horton for 20 minutes started at 1940. She does not think patient is capable of living by himself. Discharge ED - Sign-Out/Discharge Documenting (check all that apply): Patient Departure - dc - Discharge Plan Condition: Stable Disposition: HOME Patient Education Materials: Abuse of Alcohol (ED) Referrals: [facility] [Outside] Additional Instructions: [facility] morning. Return to the emergency department if you change your mind about alcohol detox. Stop drinking alcohol, it is ruining your life. - Billing Disposition and Condition Condition: STABLE Disposition: Home - Attestation Statements Document Initiated by Scribe: Yes Documenting Scribe: Indio Barber Provider For Whom Scribe is Documenting (Include Credential): Kayode Webb MD. Scribe Attestation: Indio Sewell, scribed for Kayode Webb MD. on 06/02/19 at 2144. Scribe Documentation Reviewed: Yes Provider Attestation: The documentation as recorded by the scribeIndio accurately reflects the service I personally performed and the decisions made by me, Kayode Webb MD. Status of Scribe Document: Viewed
== END 2019-06-02 20:37 | disposition home or self-care (01) ==
LOC: ED 16:35
DX: F10.10 Alcohol abuse, uncomplicated (principal); I10 Essential (primary) hypertension; F41.9 Anxiety disorder, unspecified; F32.9 Major depressive disorder, single episode, unspecified; Z79.899 Other long term (current) drug therapy; Z88.1 Allergy status to other antibiotic agents
CPT/HCPCS: 99282

== ENCOUNTER 2019-06-26 14:28 | Inpatient (IN) | payer BC, OTHER ==
--- OUTSIDE RECORDS SUMMARY | 2019-06-26 14:44 | XMS REPORT ---
:1960 Author Organization [facility] Care Team Providers Name Role Phone Unavailable Unavailable Unavailable Problems This patient has no known problems. Allergies, Adverse Reactions, Alerts Allergy Name Allergy Status Severity Reaction(s) Onset Inactive Treating Comments Type Date Date Clinician amoxicillin Base Active Unknown Reaction Interface Ingredient Unknown 01-03 Medications Ordered Filled Start Stop Current Ordering Indication Dosage Frequency Signature Comments Components Medication Medication Date Date Medication? Clinician (SIG) Name Name Rifaximin* Rifaximin* No Unknown Unknown Unknown 2-08 primidone primidone No Unknown Unknown Unknown 250 mg 250 mg 11-02 tablet tablet amLODIPine amLODIPine No Unknown Unknown Unknown 5 mg tablet 5 mg tablet 11-02 folic acid folic acid No Unknown Unknown Unknown 1 mg tablet 1 mg tablet 11-02 propranolol propranolol No Unknown Unknown Unknown ER 120 mg ER 120 mg 11-02 capsule,24 capsule,24 hr,extended hr,extended release release labetalol labetalol No Unknown Unknown Unknown 100 mg 100 mg 11-02 tablet tablet diazePAM 5 diazePAM 5 No Unknown Unknown Unknown mg tablet mg tablet 02-23 Loteprednol Loteprednol No Unknown Unknown Unknown Etabonate Etabonate 02-23 Testosteron Testosteron No Unknown Unknown Unknown e Cypionate e Cypionate 02-23 (Nf) (Nf) propranolol propranolol No Unknown Unknown Unknown 20 mg 20 mg -18 tablet tablet Tadalafil Tadalafil No Unknown Unknown Unknown 02-23 ibuprofen ibuprofen No Unknown Unknown Unknown 400 mg 400 mg -24 tablet tablet magnesium magnesium No Unknown Unknown Unknown oxide 400 oxide 400 - mg (241.3 mg (241.3 mg mg magnesium) magnesium) tablet tablet thiamine thiamine No Unknown Unknown Unknown mononitrate mononitrate 03-01 (vitamin (vitamin B1) 100 mg B1) 100 mg tablet tablet Lidocaine Lidocaine No Unknown Unknown Unknown Patch 5%* Patch 5%* 03-01 oxyCODONE 5 oxyCODONE 5 No Unknown Unknown Unknown mg mg 03-01 tablet,oral tablet,oral ONLY (not ONLY (not feeding feeding tubes) tubes) Lactobacill Lactobacill No Unknown Unknown Unknown us us 03-01 Acidophilus Acidophilus * * Multivitami Multivitami No Unknown Unknown Unknown ns/Minerals ns/Minerals 03-01 Tab* Tab* Vital Signs Vital Name Observation Time Observation Value Comments SYSTOLIC mm[Hg] 2019-06-01 18:08:30 140 mm[Hg] mm[Hg] Method: Sit DIASTOLIC mm[Hg] 2019-06-01 18:08:30 77 mm[Hg] mm[Hg] Method: Sit PULSE 2019-06-01 18:08:30 68 /min /min RESP RATE 2019-06-01 18:08:30 18 /min /min TEMP 2019-06-01 18:08:30 98.1 [degF] Procedures This patient has no known procedures. Results Test Description Test Time Test Comments Text Results Atomic Results Result Comments Laboratory Studies 2019-03-01 05:54:00 Identifier [id number] Result Time Unknown 2019-03-01 05:54:00 Test Item Value Reference Range Comments Unknown (test code = 2951-2) 136 mmol/L Unknown 135-145 F Ordering Physician UnknownLaboratory Gtkteju1749-48-58 05:54:00Identifier [id number]- 6 Result Time 2019-03-01 05:54:00Unknown Test Item Value Reference Range Comments Unknown (test code = 2823-3) 4.4 mmol/L Unknown 3.5-5.0 F Ordering Physician UnknownLaboratory Vlpzrlc6457-70-77 05:54:00Identifier 52961- 6 Result Time 2019-03-01 05:54:00Unknown Test Item Value Reference Range Comments Unknown (test code = 60974-9) 2.5 mg/dL Unknown 1.9-2.7 F Ordering Physician UnknownLaboratory Kxpxldf5439-99-63 05:54:00Identifier 73115- 6 Result Time 2019-03-01 05:54:00Unknown Test Item Value Reference Range Comments Unknown (test code = 2345-7) 95 mg/dL Unknown 70-100 F Ordering Physician UnknownLaboratory Gcnyenk0527-20-78 05:54:00Identifier 42447- 6 Result Time 2019-03-01 05:54:00Unknown Test Item Value Reference Range Comments Unknown (test code = 57335-8) 128.5 Unknown Unknown F Ordering Physician UnknownLaboratory Bcceijj2642-68-95 05:54:00Identifier 60322- 6 Result Time 2019-03-01 05:54:00Unknown Test Item Value Reference Range Comments Unknown (test code = NullTestCode) 155.4 Unknown Unknown F Ordering Physician UnknownLaboratory Ykzvhde7183-60-06 05:54:00Identifier [id number]- 6 Result Time 2019-03-01 05:54:00Unknown Test Item Value Reference Range Comments Unknown (test code = 2160-0) 0.64 mg/dL Unknown 0.67-1.17 F Ordering Physician UnknownLaboratory Qkhsynj2670-99-06 05:54:00Identifier 80140- 6 Result Time 2019-03-01 05:54:00Unknown Test Item Value Reference Range Comments Unknown (test code = 2075-0) 102 mmol/L Unknown 101-111 F Ordering Physician UnknownLaboratory Htrvghs9842-96-00 05:54:00Identifier 37787- 6 Result Time 2019-03-01 05:54:00Unknown Test Item Value Reference Range Comments Unknown (test code = 2028-9) 29 mmol/L Unknown 22-32 F Ordering Physician UnknownLaboratory Xpfgqvn5093-65-36 05:54:00Identifier 32678- 6 Result Time 2019-03-01 05:54:00Unknown Test Item Value Reference Range Comments Unknown (test code = 18940-0) 8.7 mg/dL Unknown 8.6-10.3 F Ordering Physician UnknownLaboratory Hmlraov1189-29-79 05:54:00Identifier 69132- 6 Result Time 2019-03-01 05:54:00Unknown Test Item Value Reference Range Comments Unknown (test code = 3094-0) 18 mg/dL Unknown 6-24 F Ordering Physician UnknownLaboratory Crhfkus6705-14-99 05:54:00Identifier 01214- 6 Result Time 2019-03-01 05:54:00Unknown Test Item Value Reference Range Comments Unknown (test code = 3097-3) 28.1 Unknown 8-20 F Ordering Physician UnknownLaboratory Edemxea1628-22-57 05:54:00Identifier 57173- 6 Result Time 2019-03-01 05:54:00Unknown Test Item Value Reference Range Comments Unknown (test code = 66921-4) 5 mmol/L Unknown 2-11 F Ordering Physician UnknownLaboratory Vcdvbgn8309-16-76 08:50:00Identifier 75217- 6 Result Time 2019-02-27 08:50:00Unknown Test Item Value Reference Range Comments Unknown (test code = 41589-9) 5.2 10^3/uL Unknown 3.5-10.8 F Ordering Physician UnknownLaboratory Azoyrqz8885-68-52 08:50:00Identifier [id number]- 6 Result Time 2019-02-27 08:50:00Unknown Test Item Value Reference Range Comments Unknown (test code = 788-0) 15 % Unknown 10-15 F Ordering Physician UnknownLaboratory Jpjhwql8227-48-29 08:50:00Identifier 61310- 6 Result Time 2019-02-27 08:50:00Unknown Test Item Value Reference Range Comments Unknown (test code = 789-8) 3.43 10^6 /uL Unknown 4.18-5.48 F Ordering Physician UnknownLaboratory Fbvzanr0939-93-99 08:50:00Identifier 49075- 6 Result Time 2019-02-27 08:50:00Unknown Test Item Value Reference Range Comments Unknown (test code = 777-3) 144 10^3/uL Unknown 150-450 F Ordering Physician UnknownLaboratory Dakdiel3813-27-52 08:50:00Identifier 97506- 6 Result Time 2019-02-27 08:50:00Unknown Test Item Value Reference Range Comments Unknown (test code = 16467-3) 7.9 fL Unknown 7.4-10.4 F Ordering Physician UnknownLaboratory Cexooou5711-40-92 08:50:00Identifier 67661- 6 Result Time 2019-02-27 08:50:00Unknown Test Item Value Reference Range Comments Unknown (test code = 787-2) 97 fL Unknown 80-94 F Ordering Physician UnknownLaboratory Afdpduc0050-67-02 08:50:00Identifier 79382- 6 Result Time 2019-02-27 08:50:00Unknown Test Item Value Reference Range Comments Unknown (test code = 786-4) 34 g/dL Unknown 31-36 F Ordering Physician UnknownLaboratory Lojyrjm5605-69-91 08:50:00Identifier 48731- 6 Result Time 2019-02-27 08:50:00Unknown Test Item Value Reference Range Comments Unknown (test code = 785-6) 33 pg Unknown 27-31 F Ordering Physician UnknownLaboratory Izkeutl5221-68-99 08:50:00Identifier 42136- 6 Result Time 2019-02-27 08:50:00Unknown Test Item Value Reference Range Comments Unknown (test code = 718-7) 11.4 g/dL Unknown 14.0-18.0 F Ordering Physician UnknownLaboratory Niwamkw3221-82-73 08:50:00Identifier 37091- 6 Result Time 2019-02-27 08:50:00Unknown Test Item Value Reference Range Comments Unknown (test code = 4544-3) 33 % Unknown 42-52 F Ordering Physician UnknownLaboratory Lflwbmh5256-05-69 05:21:00Identifier 88055- 6 Result Time 2019-02-26 05:21:00Unknown Test Item Value Reference Range Comments Unknown (test code = 2885-2) 6.1 g/dL Unknown 6.4-8.9 F Ordering Physician UnknownLaboratory Rjjtjgo8393-55-95 05:21:00Identifier 49978- 6 Result Time 2019-02-26 05:21:00Unknown Test Item Value Reference Range Comments Unknown (test code = 1975-2) 0.90 mg/dL Unknown 0.2-1.0 F Ordering Physician UnknownLaboratory Vgobczd3892-05-17 05:21:00Identifier 58861- 6 Result Time 2019-02-26 05:21:00Unknown Test Item Value Reference Range Comments Unknown (test code = 2777-1) 3.7 mg/dL Unknown 2.5-5.0 F Ordering Physician UnknownLaboratory Qxtskyg4354-94-37 05:21:00Identifier 32088- 6 Result Time 2019-02-26 05:21:00Unknown Test Item Value Reference Range Comments Unknown (test code = 1971-1) 0.6 mg/dL Unknown 0.3-1.0 F Ordering Physician UnknownLaboratory Hsosadq9382-46-90 05:21:00Identifier 59269- 6 Result Time 2019-02-26 05:21:00Unknown Test Item Value Reference Range Comments Unknown (test code = NullTestCode) 2.5 g/dL Unknown 2-4 F Ordering Physician UnknownLaboratory Deyzjuz9883-34-97 05:21:00Identifier [id number]- 6 Result Time 2019-02-26 05:21:00Unknown Test Item Value Reference Range Comments Unknown (test code = 1968-7) 0.30 mg/dL Unknown 0.03-0.18 F Ordering Physician UnknownLaboratory Mnuoveu3546-96-62 05:21:00Identifier 09778- 6 Result Time 2019-02-26 05:21:00Unknown Test Item Value Reference Range Comments Unknown (test code = 1920-8) 112 U/L Unknown 13-39 F Ordering Physician UnknownLaboratory Homztuk5483-71-17 05:21:00Identifier 06069- 6 Result Time 2019-02-26 05:21:00Unknown Test Item Value Reference Range Comments Unknown (test code = 6768-6) 342 U/L Unknown 34-104 F Ordering Physician UnknownLaboratory Wxbkajy1399-16-06 05:21:00Identifier 85926- 6 Result Time 2019-02-26 05:21:00Unknown Test Item Value Reference Range Comments Unknown (test code = 1759-0) 1.4 Unknown 1-3 F Ordering Physician UnknownLaboratory Stzmmms3242-67-75 05:21:00Identifier 43401- 6 Result Time 2019-02-26 05:21:00Unknown Test Item Value Reference Range Comments Unknown (test code = 91786-6) 3.6 g/dL Unknown 3.2-5.2 F Ordering Physician UnknownLaboratory Eqylpdd4823-97-32 05:21:00Identifier 42722- 6 Result Time 2019-02-26 05:21:00Unknown Test Item Value Reference Range Comments Unknown (test code = 1742-6) 133 U/L Unknown 7-52 F Ordering Physician UnknownLaboratory Jbarhmg4332-94-35 05:21:00Identifier 54243- 6 Result Time 2019-02-26 05:21:00Unknown Test Item Value Reference Range Comments Unknown (test code = 36989-6) 0.1 Unknown Unknown F Ordering Physician UnknownLaboratory Klmgjqy8359-74-43 05:21:00Identifier 24242- 6 Result Time 2019-02-26 05:21:00Unknown Test Item Value Reference Range Comments Unknown (test code = 771-6) 0.0 10^3/ul Unknown Unknown F Ordering Physician UnknownLaboratory Noovloy6198-02-30 05:21:00Identifier 57491- 6 Result Time 2019-02-26 05:21:00Unknown Test Item Value Reference Range Comments Unknown (test code = 770-8) 62.9 % Unknown Unknown F Ordering Physician UnknownLaboratory Fozkmjh3391-61-32 05:21:00Identifier 77132- 6 Result Time 2019-02-26 05:21:00Unknown Test Item Value Reference Range Comments Unknown (test code = 5905-5) 16.4 % Unknown Unknown F Ordering Physician UnknownLaboratory Syejlpx1822-30-31 05:21:00Identifier 64191- 6 Result Time 2019-02-26 05:21:00Unknown Test Item Value Reference Range Comments Unknown (test code = 736-9) 16.5 % Unknown Unknown F Ordering Physician UnknownLaboratory Solzokx1010-03-32 05:21:00Identifier 48972- 6 Result Time 2019-02-26 05:21:00Unknown Test Item Value Reference Range Comments Unknown (test code = 713-8) 3.4 % Unknown Unknown F Ordering Physician UnknownLaboratory Hsbyyht2227-83-55 05:21:00Identifier 75044- 6 Result Time 2019-02-26 05:21:00Unknown Test Item Value Reference Range Comments Unknown (test code = 706-2) 0.8 % Unknown Unknown F Ordering Physician UnknownLaboratory Safymcb7492-39-41 05:21:00Identifier 48709- 6 Result Time 2019-02-26 05:21:00Unknown Test Item Value Reference Range Comments Unknown (test code = BQT9909) 2.6 10^3/ul Unknown 1.5-7.7 F Ordering Physician UnknownLaboratory Ggusfym3625-82-24 05:21:00Identifier 37848- 6 Result Time 2019-02-26 05:21:00Unknown Test Item Value Reference Range Comments Unknown (test code = 742-7) 0.7 10^3/ul Unknown 0-0.8 F Ordering Physician UnknownLaboratory Icsyxhn8007-21-75 05:21:00Identifier 32254- 6 Result Time 2019-02-26 05:21:00Unknown Test Item Value Reference Range Comments Unknown (test code = 731-0) 0.7 10^3/ul Unknown 1.0-4.8 F Ordering Physician UnknownLaboratory Oicakml0299-61-75 05:21:00Identifier 93714- 6 Result Time 2019-02-26 05:21:00Unknown Test Item Value Reference Range Comments Unknown (test code = 711-2) 0.1 10^3/ul Unknown 0-0.6 F Ordering Physician UnknownLaboratory Ehbviej7508-15-55 05:21:00Identifier 86768- 6 Result Time 2019-02-26 05:21:00Unknown Test Item Value Reference Range Comments Unknown (test code = 704-7) 0.0 10^3/ul Unknown 0-0.2 F Ordering Physician UnknownLaboratory Qnlztxc1676-21-30 18:33:00Identifier 69712- 6 Result Time 2019-02-23 18:33:00Unknown Test Item Value Reference Range Comments Unknown (test code = 5643-2) 236 mg/dL Unknown 0-10 F Ordering Physician UnknownLaboratory Jmwteov7626-01-94 18:33:00Identifier 44428- 6 Result Time 2019-02-23 18:33:00Unknown Test Item Value Reference Range Comments Unknown (test code = 66889-2) 0.89 Unknown 0.82-1.09 F Ordering Physician UnknownLaboratory Rlphmvr1245-97-40 18:33:00Identifier 57564- 6 Result Time 2019-02-23 18:33:00Unknown Test Item Value Reference Range Comments Unknown (test code = 96847-2) 31.2 seconds Unknown 26.0-38.0 F Ordering Physician UnknownLaboratory Nbfeysr7548-14-15 18:33:00Identifier 40071- 6 Result Time 2019-02-23 18:33:00Unknown Test Item Value Reference Range Comments Unknown (test code = 2524-7) 1.6 mmol/L Unknown 0.5-2.0 F Ordering Physician UnknownLaboratory Fnziosw9896-89-23 18:32:00Identifier 64937- 6 Result Time 2019-02-23 18:32:00Unknown Test Item Value Reference Range Comments Unknown (test code = 95847-3) 0.01 s/c Unknown Unknown F Ordering Physician Unknown
--- OUTSIDE RECORDS SUMMARY | 2019-06-26 14:44 | XMS REPORT ---
:1960 Author Organization [facility] Care Team Providers Name Role Phone Unavailable [...] Unknown Unknown Unknown e Cypionate e Cypionate 18 (Nf) (Nf) propranolol propranolol No Unknown Unknown Unknown 20 mg 20 mg -18 tablet tablet Tadalafil Tadalafil No Unknown Unknown Unknown 18 ibuprofen ibuprofen No Unknown Unknown Unknown 400 mg 400 mg -24 tablet tablet magnesium magnesium No Unknown Unknown Unknown oxide 400 oxide 400 7- mg (241.3 mg (241.3 mg mg magnesium) [...] Result Comments Laboratory Studies 2019-03-01 05:54:00 Identifier [id number] Result Time Unknown 2019-03-01 05:54:00 Test Item Value Reference Range Comments Unknown (test code = 2951-2) 136 mmol/L Unknown 135-145 F Ordering Physician UnknownLaboratory Ztbzwxn6409-23-38 05:54:00Identifier 66044- 6 Result Time 2019-03-01 05:54:00Unknown Test Item Value Reference Range Comments Unknown (test code = 2823-3) 4.4 mmol/L Unknown 3.5-5.0 F Ordering Physician UnknownLaboratory Frizzii0042-70-61 05:54:00Identifier 93545- 6 Result Time 2019-03-01 05:54:00Unknown Test Item Value Reference Range Comments Unknown (test code = 02475-4) 2.5 mg/dL Unknown 1.9-2.7 F Ordering Physician UnknownLaboratory Kqfzxhf5562-23-32 05:54:00Identifier 83891- 6 Result Time 2019-03-01 05:54:00Unknown Test Item Value Reference Range Comments Unknown (test code = 2345-7) 95 mg/dL Unknown 70-100 F Ordering Physician UnknownLaboratory Abdscli9391-45-44 05:54:00Identifier 18814- 6 Result Time 2019-03-01 05:54:00Unknown Test Item Value Reference Range Comments Unknown (test code = 27180-7) 128.5 Unknown Unknown F Ordering Physician UnknownLaboratory Omwvdjr5849-56-19 05:54:00Identifier 47861- 6 Result Time 2019-03-01 05:54:00Unknown Test Item Value Reference Range Comments Unknown (test code = NullTestCode) 155.4 Unknown Unknown F Ordering Physician UnknownLaboratory Ozclhdy5274-30-93 05:54:00Identifier 50909- 6 Result Time 2019-03-01 05:54:00Unknown Test Item Value Reference Range Comments Unknown (test code = 2160-0) 0.64 mg/dL Unknown 0.67-1.17 F Ordering Physician UnknownLaboratory Xczktzt4610-10-22 05:54:00Identifier 08581- 6 Result Time 2019-03-01 05:54:00Unknown Test Item Value Reference Range Comments Unknown (test code = 2075-0) 102 mmol/L Unknown 101-111 F Ordering Physician UnknownLaboratory Ygtmcxv8799-30-56 05:54:00Identifier 79167- 6 Result Time 2019-03-01 05:54:00Unknown Test Item Value Reference Range Comments Unknown (test code = 2028-9) 29 mmol/L Unknown 22-32 F Ordering Physician UnknownLaboratory Csvokon7476-81-09 05:54:00Identifier 30631- 6 Result Time 2019-03-01 05:54:00Unknown Test Item Value Reference Range Comments Unknown (test code = 61011-1) 8.7 mg/dL Unknown 8.6-10.3 F Ordering Physician UnknownLaboratory Gfhovaw2912-90-74 05:54:00Identifier 02143- 6 Result Time 2019-03-01 05:54:00Unknown Test Item Value Reference Range Comments Unknown (test code = 3094-0) 18 mg/dL Unknown 6-24 F Ordering Physician UnknownLaboratory Dgsyfil8642-08-87 05:54:00Identifier 77405- 6 Result Time 2019-03-01 05:54:00Unknown Test Item Value Reference Range Comments Unknown (test code = 3097-3) 28.1 Unknown 8-20 F Ordering Physician UnknownLaboratory Gjzgipb7915-45-40 05:54:00Identifier 32136- 6 Result Time 2019-03-01 05:54:00Unknown Test Item Value Reference Range Comments Unknown (test code = 37261-5) 5 mmol/L Unknown 2-11 F Ordering Physician UnknownLaboratory Bondhfn9269-68-77 08:50:00Identifier 85053- 6 Result Time 2019-02-27 08:50:00Unknown Test Item Value Reference Range Comments Unknown (test code = 09148-2) 5.2 10^3/uL Unknown 3.5-10.8 F Ordering Physician UnknownLaboratory Qlnoacq3223-70-19 08:50:00Identifier 55822- 6 Result Time 2019-02-27 08:50:00Unknown Test Item Value Reference Range Comments Unknown (test code = 788-0) 15 % Unknown 10-15 F Ordering Physician UnknownLaboratory Mtqcobj8764-04-07 08:50:00Identifier [id number]- 6 Result Time 2019-02-27 08:50:00Unknown Test Item Value Reference Range Comments Unknown (test code = 789-8) 3.43 10^6 /uL Unknown 4.18-5.48 F Ordering Physician UnknownLaboratory Kiwsghv8841-58-76 08:50:00Identifier 39921- 6 Result Time 2019-02-27 08:50:00Unknown Test Item Value Reference Range Comments Unknown (test code = 777-3) 144 10^3/uL Unknown 150-450 F Ordering Physician UnknownLaboratory Ocldsfb6283-19-82 08:50:00Identifier 34431- 6 Result Time 2019-02-27 08:50:00Unknown Test Item Value Reference Range Comments Unknown (test code = 26788-4) 7.9 fL Unknown 7.4-10.4 F Ordering Physician UnknownLaboratory Bqkfckh4853-50-90 08:50:00Identifier 89433- 6 Result Time 2019-02-27 08:50:00Unknown Test Item Value Reference Range Comments Unknown (test code = 787-2) 97 fL Unknown 80-94 F Ordering Physician UnknownLaboratory Xckkrfp8355-03-77 08:50:00Identifier 74315- 6 Result Time 2019-02-27 08:50:00Unknown Test Item Value Reference Range Comments Unknown (test code = 786-4) 34 g/dL Unknown 31-36 F Ordering Physician UnknownLaboratory Gvcddqy4318-87-70 08:50:00Identifier 63819- 6 Result Time 2019-02-27 08:50:00Unknown Test Item Value Reference Range Comments Unknown (test code = 785-6) 33 pg Unknown 27-31 F Ordering Physician UnknownLaboratory Nuojvrx2291-42-99 08:50:00Identifier 01629- 6 Result Time 2019-02-27 08:50:00Unknown Test Item Value Reference Range Comments Unknown (test code = 718-7) 11.4 g/dL Unknown 14.0-18.0 F Ordering Physician UnknownLaboratory Ftzvbef0228-66-91 08:50:00Identifier 30967- 6 Result Time 2019-02-27 08:50:00Unknown Test Item Value Reference Range Comments Unknown (test code = 4544-3) 33 % Unknown 42-52 F Ordering Physician UnknownLaboratory Zidugcu1261-66-56 05:21:00Identifier 71298- 6 Result Time 2019-02-26 05:21:00Unknown Test Item Value Reference Range Comments Unknown (test code = 2885-2) 6.1 g/dL Unknown 6.4-8.9 F Ordering Physician UnknownLaboratory Pwkyjwe8100-76-91 05:21:00Identifier 23036- 6 Result Time 2019-02-26 05:21:00Unknown Test Item Value Reference Range Comments Unknown (test code = 1975-2) 0.90 mg/dL Unknown 0.2-1.0 F Ordering Physician UnknownLaboratory Ohdlojg3511-15-80 05:21:00Identifier 01668- 6 Result Time 2019-02-26 05:21:00Unknown Test Item Value Reference Range Comments Unknown (test code = 2777-1) 3.7 mg/dL Unknown 2.5-5.0 F Ordering Physician UnknownLaboratory Jnkwrwj4373-58-57 05:21:00Identifier 19790- 6 Result Time 2019-02-26 05:21:00Unknown Test Item Value Reference Range Comments Unknown (test code = 1971-1) 0.6 mg/dL Unknown 0.3-1.0 F Ordering Physician UnknownLaboratory Ihdladl1766-70-85 05:21:00Identifier 60867- 6 Result Time 2019-02-26 05:21:00Unknown Test Item Value Reference Range Comments Unknown (test code = NullTestCode) 2.5 g/dL Unknown 2-4 F Ordering Physician UnknownLaboratory Cgymufa9155-09-02 05:21:00Identifier 20207- 6 Result Time 2019-02-26 05:21:00Unknown Test Item Value Reference Range Comments Unknown (test code = 1968-7) 0.30 mg/dL Unknown 0.03-0.18 F Ordering Physician UnknownLaboratory Qjtnclb6913-45-62 05:21:00Identifier 92969- 6 Result Time 2019-02-26 05:21:00Unknown Test Item Value Reference Range Comments Unknown (test code = 1920-8) 112 U/L Unknown 13-39 F Ordering Physician UnknownLaboratory Cqdabek3457-79-86 05:21:00Identifier 12181- 6 Result Time 2019-02-26 05:21:00Unknown Test Item Value Reference Range Comments Unknown (test code = 6768-6) 342 U/L Unknown 34-104 F Ordering Physician UnknownLaboratory Ohsymqd8274-22-48 05:21:00Identifier 72327- 6 Result Time 2019-02-26 05:21:00Unknown Test Item Value Reference Range Comments Unknown (test code = 1759-0) 1.4 Unknown 1-3 F Ordering Physician UnknownLaboratory Gltqybl9160-73-30 05:21:00Identifier 66338- 6 Result Time 2019-02-26 05:21:00Unknown Test Item Value Reference Range Comments Unknown (test code = 68572-5) 3.6 g/dL Unknown 3.2-5.2 F Ordering Physician UnknownLaboratory Vbqdsyj7119-60-93 05:21:00Identifier 74303- 6 Result Time 2019-02-26 05:21:00Unknown Test Item Value Reference Range Comments Unknown (test code = 1742-6) 133 U/L Unknown 7-52 F Ordering Physician UnknownLaboratory Qixeywk6982-19-64 05:21:00Identifier 44750- 6 Result Time 2019-02-26 05:21:00Unknown Test Item Value Reference Range Comments Unknown (test code = 05526-4) 0.1 Unknown Unknown F Ordering Physician UnknownLaboratory Zqoikxk1708-46-93 05:21:00Identifier 37331- 6 Result Time 2019-02-26 05:21:00Unknown Test Item Value Reference Range Comments Unknown (test code = 771-6) 0.0 10^3/ul Unknown Unknown F Ordering Physician UnknownLaboratory Lzfytyk3223-84-00 05:21:00Identifier 86678- 6 Result Time 2019-02-26 05:21:00Unknown Test Item Value Reference Range Comments Unknown (test code = 770-8) 62.9 % Unknown Unknown F Ordering Physician UnknownLaboratory Moavllq6732-64-21 05:21:00Identifier 77899- 6 Result Time 2019-02-26 05:21:00Unknown Test Item Value Reference Range Comments Unknown (test code = 5905-5) 16.4 % Unknown Unknown F Ordering Physician UnknownLaboratory Fnrvwpb0135-80-73 05:21:00Identifier 81666- 6 Result Time 2019-02-26 05:21:00Unknown Test Item Value Reference Range Comments Unknown (test code = 736-9) 16.5 % Unknown Unknown F Ordering Physician UnknownLaboratory Klwiema5375-54-99 05:21:00Identifier 75026- 6 Result Time 2019-02-26 05:21:00Unknown Test Item Value Reference Range Comments Unknown (test code = 713-8) 3.4 % Unknown Unknown F Ordering Physician UnknownLaboratory Wnkmkgn6723-35-20 05:21:00Identifier 01925- 6 Result Time 2019-02-26 05:21:00Unknown Test Item Value Reference Range Comments Unknown (test code = 706-2) 0.8 % Unknown Unknown F Ordering Physician UnknownLaboratory Piudmpz0099-50-56 05:21:00Identifier 35702- 6 Result Time 2019-02-26 05:21:00Unknown Test Item Value Reference Range Comments Unknown (test code = KHM6893) 2.6 10^3/ul Unknown 1.5-7.7 F Ordering Physician UnknownLaboratory Yoijatj7660-03-50 05:21:00Identifier 15821- 6 Result Time 2019-02-26 05:21:00Unknown Test Item Value Reference Range Comments Unknown (test code = 742-7) 0.7 10^3/ul Unknown 0-0.8 F Ordering Physician UnknownLaboratory Yuebflf1062-47-43 05:21:00Identifier 68635- 6 Result Time 2019-02-26 05:21:00Unknown Test Item Value Reference Range Comments Unknown (test code = 731-0) 0.7 10^3/ul Unknown 1.0-4.8 F Ordering Physician UnknownLaboratory Lybfosm4859-18-31 05:21:00Identifier 77637- 6 Result Time 2019-02-26 05:21:00Unknown Test Item Value Reference Range Comments Unknown (test code = 711-2) 0.1 10^3/ul Unknown 0-0.6 F Ordering Physician UnknownLaboratory Cagqkpj3608-82-84 05:21:00Identifier 67860- 6 Result Time 2019-02-26 05:21:00Unknown Test Item Value Reference Range Comments Unknown (test code = 704-7) 0.0 10^3/ul Unknown 0-0.2 F Ordering Physician UnknownLaboratory Bcevycv3618-70-40 18:33:00Identifier 47212- 6 Result Time 2019-02-23 18:33:00Unknown Test Item Value Reference Range Comments Unknown (test code = 5643-2) 236 mg/dL Unknown 0-10 F Ordering Physician UnknownLaboratory Qoyjhdb9168-75-11 18:33:00Identifier 83628- 6 Result Time 2019-02-23 18:33:00Unknown Test Item Value Reference Range Comments Unknown (test code = 06724-2) 0.89 Unknown 0.82-1.09 F Ordering Physician UnknownLaboratory Bzfnjfw4518-62-58 18:33:00Identifier 66841- 6 Result Time 2019-02-23 18:33:00Unknown Test Item Value Reference Range Comments Unknown (test code = 46015-2) 31.2 seconds Unknown 26.0-38.0 F Ordering Physician UnknownLaboratory Zwrqbtl2342-83-42 18:33:00Identifier 06604- 6 Result Time 2019-02-23 18:33:00Unknown Test Item Value Reference Range Comments Unknown (test code = 2524-7) 1.6 mmol/L Unknown 0.5-2.0 F Ordering Physician UnknownLaboratory Xjuqalv9463-80-91 18:32:00Identifier 25118- 6 Result Time 2019-02-23 18:32:00Unknown Test Item Value Reference Range Comments Unknown (test code = 30116-7) 0.01 s/c Unknown Unknown F Ordering Physician Unknown
--- OUTSIDE RECORDS SUMMARY | 2019-06-26 14:44 | XMS REPORT ---
:1960 Author Organization [facility] Care Team Providers Name Role Phone Unavailable [...] Result Comments Laboratory Studies 2019-03-01 05:54:00 Identifier [id number] Result Time Unknown 2019-03-01 05:54:00 Test Item Value Reference Range Comments Unknown (test code = 2951-2) 136 mmol/L Unknown 135-145 F Ordering Physician UnknownLaboratory Sxcscvh8343-55-45 05:54:00Identifier 12243- 6 Result Time 2019-03-01 05:54:00Unknown Test Item Value Reference Range Comments Unknown (test code = 2823-3) 4.4 mmol/L Unknown 3.5-5.0 F Ordering Physician UnknownLaboratory Twzknnn1960 05:54:00Identifier 98078- 6 Result Time 2019-03-01 05:54:00Unknown Test Item Value Reference Range Comments Unknown (test code = 63747-2) 2.5 mg/dL Unknown 1.9-2.7 F Ordering Physician UnknownLaboratory Ecfntbc2596-95-63 05:54:00Identifier 42012- 6 Result Time 2019-03-01 05:54:00Unknown Test Item Value Reference Range Comments Unknown (test code = 2345-7) 95 mg/dL Unknown 70-100 F Ordering Physician UnknownLaboratory Ynzvwec0985-51-44 05:54:00Identifier 98900- 6 Result Time 2019-03-01 05:54:00Unknown Test Item Value Reference Range Comments Unknown (test code = 09449-5) 128.5 Unknown Unknown F Ordering Physician UnknownLaboratory Voszhit8460-81-38 05:54:00Identifier 96467- 6 Result Time 2019-03-01 05:54:00Unknown Test Item Value Reference Range Comments Unknown (test code = NullTestCode) 155.4 Unknown Unknown F Ordering Physician UnknownLaboratory Otweaqg8383-65-19 05:54:00Identifier 54544- 6 Result Time 2019-03-01 05:54:00Unknown Test Item Value Reference Range Comments Unknown (test code = 2160-0) 0.64 mg/dL Unknown 0.67-1.17 F Ordering Physician UnknownLaboratory Wraqavq3496-68-63 05:54:00Identifier 94317- 6 Result Time 2019-03-01 05:54:00Unknown Test Item Value Reference Range Comments Unknown (test code = 2075-0) 102 mmol/L Unknown 101-111 F Ordering Physician UnknownLaboratory Nqmeita1146-93-06 05:54:00Identifier 85014- 6 Result Time 2019-03-01 05:54:00Unknown Test Item Value Reference Range Comments Unknown (test code = 2028-9) 29 mmol/L Unknown 22-32 F Ordering Physician UnknownLaboratory Xqslpvp3829-81-72 05:54:00Identifier 51512- 6 Result Time 2019-03-01 05:54:00Unknown Test Item Value Reference Range Comments Unknown (test code = 56792-6) 8.7 mg/dL Unknown 8.6-10.3 F Ordering Physician UnknownLaboratory Nximzfs1805-89-57 05:54:00Identifier 84555- 6 Result Time 2019-03-01 05:54:00Unknown Test Item Value Reference Range Comments Unknown (test code = 3094-0) 18 mg/dL Unknown 6-24 F Ordering Physician UnknownLaboratory Avknket4012-18-65 05:54:00Identifier 88280- 6 Result Time 2019-03-01 05:54:00Unknown Test Item Value Reference Range Comments Unknown (test code = 3097-3) 28.1 Unknown 8-20 F Ordering Physician UnknownLaboratory Fhnjbtd2078-00-67 05:54:00Identifier 01718- 6 Result Time 2019-03-01 05:54:00Unknown Test Item Value Reference Range Comments Unknown (test code = 84031-6) 5 mmol/L Unknown 2-11 F Ordering Physician UnknownLaboratory Ziqtqnz7274-60-98 08:50:00Identifier 86583- 6 Result Time 2019-02-27 08:50:00Unknown Test Item Value Reference Range Comments Unknown (test code = 52952-2) 5.2 10^3/uL Unknown 3.5-10.8 F Ordering Physician UnknownLaboratory Oajknah0379-31-65 08:50:00Identifier 17730- 6 Result Time 2019-02-27 08:50:00Unknown Test Item Value Reference Range Comments Unknown (test code = 788-0) 15 % Unknown 10-15 F Ordering Physician UnknownLaboratory Wfcttqh6345-47-83 08:50:00Identifier 40734- 6 Result Time 2019-02-27 08:50:00Unknown Test Item Value Reference Range Comments Unknown (test code = 789-8) 3.43 10^6 /uL Unknown 4.18-5.48 F Ordering Physician UnknownLaboratory Vbebsjo3778-00-12 08:50:00Identifier 33801- 6 Result Time 2019-02-27 08:50:00Unknown Test Item Value Reference Range Comments Unknown (test code = 777-3) 144 10^3/uL Unknown 150-450 F Ordering Physician UnknownLaboratory Rgrkoga4491-62-26 08:50:00Identifier 37442- 6 Result Time 2019-02-27 08:50:00Unknown Test Item Value Reference Range Comments Unknown (test code = 84968-1) 7.9 fL Unknown 7.4-10.4 F Ordering Physician UnknownLaboratory Pkuyxzv4454-36-25 08:50:00Identifier 71382- 6 Result Time 2019-02-27 08:50:00Unknown Test Item Value Reference Range Comments Unknown (test code = 787-2) 97 fL Unknown 80-94 F Ordering Physician UnknownLaboratory Jcpkrbf8180-65-99 08:50:00Identifier 88039- 6 Result Time 2019-02-27 08:50:00Unknown Test Item Value Reference Range Comments Unknown (test code = 786-4) 34 g/dL Unknown 31-36 F Ordering Physician UnknownLaboratory Gesoyga6708-94-76 08:50:00Identifier 33074- 6 Result Time 2019-02-27 08:50:00Unknown Test Item Value Reference Range Comments Unknown (test code = 785-6) 33 pg Unknown 27-31 F Ordering Physician UnknownLaboratory Qirneuu4690-71-64 08:50:00Identifier 88893- 6 Result Time 2019-02-27 08:50:00Unknown Test Item Value Reference Range Comments Unknown (test code = 718-7) 11.4 g/dL Unknown 14.0-18.0 F Ordering Physician UnknownLaboratory Uauzshe7161-62-33 08:50:00Identifier 77285- 6 Result Time 2019-02-27 08:50:00Unknown Test Item Value Reference Range Comments Unknown (test code = 4544-3) 33 % Unknown 42-52 F Ordering Physician UnknownLaboratory Rrvdlwe0932-68-43 05:21:00Identifier 07813- 6 Result Time 2019-02-26 05:21:00Unknown Test Item Value Reference Range Comments Unknown (test code = 2885-2) 6.1 g/dL Unknown 6.4-8.9 F Ordering Physician UnknownLaboratory Akmzdqv3707-33-09 05:21:00Identifier 56273- 6 Result Time 2019-02-26 05:21:00Unknown Test Item Value Reference Range Comments Unknown (test code = 1975-2) 0.90 mg/dL Unknown 0.2-1.0 F Ordering Physician UnknownLaboratory Vnlcies7131-49-73 05:21:00Identifier 35305- 6 Result Time 2019-02-26 05:21:00Unknown Test Item Value Reference Range Comments Unknown (test code = 2777-1) 3.7 mg/dL Unknown 2.5-5.0 F Ordering Physician UnknownLaboratory Cbtgokl1309-93-56 05:21:00Identifier 92270- 6 Result Time 2019-02-26 05:21:00Unknown Test Item Value Reference Range Comments Unknown (test code = 1971-1) 0.6 mg/dL Unknown 0.3-1.0 F Ordering Physician UnknownLaboratory Skzdtaa5172-78-06 05:21:00Identifier 05613- 6 Result Time 2019-02-26 05:21:00Unknown Test Item Value Reference Range Comments Unknown (test code = NullTestCode) 2.5 g/dL Unknown 2-4 F Ordering Physician UnknownLaboratory Vgscula7553-92-54 05:21:00Identifier 45614- 6 Result Time 2019-02-26 05:21:00Unknown Test Item Value Reference Range Comments Unknown (test code = 1968-7) 0.30 mg/dL Unknown 0.03-0.18 F Ordering Physician UnknownLaboratory Lpqscgx2135-88-83 05:21:00Identifier 08763- 6 Result Time 2019-02-26 05:21:00Unknown Test Item Value Reference Range Comments Unknown (test code = 1920-8) 112 U/L Unknown 13-39 F Ordering Physician UnknownLaboratory Qlmbmsw6085-88-06 05:21:00Identifier 43292- 6 Result Time 2019-02-26 05:21:00Unknown Test Item Value Reference Range Comments Unknown (test code = 6768-6) 342 U/L Unknown 34-104 F Ordering Physician UnknownLaboratory Wscmhej5487-15-30 05:21:00Identifier 79101- 6 Result Time 2019-02-26 05:21:00Unknown Test Item Value Reference Range Comments Unknown (test code = 1759-0) 1.4 Unknown 1-3 F Ordering Physician UnknownLaboratory Tlotfki0252-31-93 05:21:00Identifier 00647- 6 Result Time 2019-02-26 05:21:00Unknown Test Item Value Reference Range Comments Unknown (test code = 72765-6) 3.6 g/dL Unknown 3.2-5.2 F Ordering Physician UnknownLaboratory Gcskayo6442-14-48 05:21:00Identifier 64399- 6 Result Time 2019-02-26 05:21:00Unknown Test Item Value Reference Range Comments Unknown (test code = 1742-6) 133 U/L Unknown 7-52 F Ordering Physician UnknownLaboratory Blzgcns0208-22-88 05:21:00Identifier 93063- 6 Result Time 2019-02-26 05:21:00Unknown Test Item Value Reference Range Comments Unknown (test code = 88625-9) 0.1 Unknown Unknown F Ordering Physician UnknownLaboratory Owllyrh4595-11-85 05:21:00Identifier 26782- 6 Result Time 2019-02-26 05:21:00Unknown Test Item Value Reference Range Comments Unknown (test code = 771-6) 0.0 10^3/ul Unknown Unknown F Ordering Physician UnknownLaboratory Xwfgots2905-63-83 05:21:00Identifier 03067- 6 Result Time 2019-02-26 05:21:00Unknown Test Item Value Reference Range Comments Unknown (test code = 770-8) 62.9 % Unknown Unknown F Ordering Physician UnknownLaboratory Ytdyrmg6544-63-47 05:21:00Identifier 05165- 6 Result Time 2019-02-26 05:21:00Unknown Test Item Value Reference Range Comments Unknown (test code = 5905-5) 16.4 % Unknown Unknown F Ordering Physician UnknownLaboratory Whjxbte1715-72-03 05:21:00Identifier 20197- 6 Result Time 2019-02-26 05:21:00Unknown Test Item Value Reference Range Comments Unknown (test code = 736-9) 16.5 % Unknown Unknown F Ordering Physician UnknownLaboratory Eyfhskq6610-28-61 05:21:00Identifier 33413- 6 Result Time 2019-02-26 05:21:00Unknown Test Item Value Reference Range Comments Unknown (test code = 713-8) 3.4 % Unknown Unknown F Ordering Physician UnknownLaboratory Pnqpslq6494-16-15 05:21:00Identifier 51169- 6 Result Time 2019-02-26 05:21:00Unknown Test Item Value Reference Range Comments Unknown (test code = 706-2) 0.8 % Unknown Unknown F Ordering Physician UnknownLaboratory Flsqfjc0894-07-43 05:21:00Identifier 97463- 6 Result Time 2019-02-26 05:21:00Unknown Test Item Value Reference Range Comments Unknown (test code = PYO1363) 2.6 10^3/ul Unknown 1.5-7.7 F Ordering Physician UnknownLaboratory Zdjtmiw6901-67-39 05:21:00Identifier 03669- 6 Result Time 2019-02-26 05:21:00Unknown Test Item Value Reference Range Comments Unknown (test code = 742-7) 0.7 10^3/ul Unknown 0-0.8 F Ordering Physician UnknownLaboratory Levlkhx8591-54-43 05:21:00Identifier 03947- 6 Result Time 2019-02-26 05:21:00Unknown Test Item Value Reference Range Comments Unknown (test code = 731-0) 0.7 10^3/ul Unknown 1.0-4.8 F Ordering Physician UnknownLaboratory Wtcfxbq1773-74-25 05:21:00Identifier 02711- 6 Result Time 2019-02-26 05:21:00Unknown Test Item Value Reference Range Comments Unknown (test code = 711-2) 0.1 10^3/ul Unknown 0-0.6 F Ordering Physician UnknownLaboratory Mqshjqw3857-41-79 05:21:00Identifier 48025- 6 Result Time 2019-02-26 05:21:00Unknown Test Item Value Reference Range Comments Unknown (test code = 704-7) 0.0 10^3/ul Unknown 0-0.2 F Ordering Physician UnknownLaboratory Ifkuupj4968-24-73 18:33:00Identifier 28890- 6 Result Time 2019-02-23 18:33:00Unknown Test Item Value Reference Range Comments Unknown (test code = 5643-2) 236 mg/dL Unknown 0-10 F Ordering Physician UnknownLaboratory Uephirr1689-65-02 18:33:00Identifier 64987- 6 Result Time 2019-02-23 18:33:00Unknown Test Item Value Reference Range Comments Unknown (test code = 74742-2) 0.89 Unknown 0.82-1.09 F Ordering Physician UnknownLaboratory Kxgpyuy3630-09-09 18:33:00Identifier 49155- 6 Result Time 2019-02-23 18:33:00Unknown Test Item Value Reference Range Comments Unknown (test code = 61824-7) 31.2 seconds Unknown 26.0-38.0 F Ordering Physician UnknownLaboratory Kzxzneo2036-43-27 18:33:00Identifier 26938- 6 Result Time 2019-02-23 18:33:00Unknown Test Item Value Reference Range Comments Unknown (test code = 2524-7) 1.6 mmol/L Unknown 0.5-2.0 F Ordering Physician UnknownLaboratory Veaeylf7158-66-85 18:32:00Identifier 29087- 6 Result Time 2019-02-23 18:32:00Unknown Test Item Value Reference Range Comments Unknown (test code = 80748-0) 0.01 s/c Unknown Unknown F Ordering Physician Unknown
--- OUTSIDE RECORDS SUMMARY | 2019-06-26 14:44 | XMS REPORT ---
:1960 Author Organization [facility] Care Team Providers Name Role Phone Unavailable [...] Result Comments Laboratory Studies 2019-03-01 05:54:00 Identifier [id number] Result Time Unknown 2019-03-01 05:54:00 Test Item Value Reference Range Comments Unknown (test code = 2951-2) 136 mmol/L Unknown 135-145 F Ordering Physician UnknownLaboratory Mfokvkn5310-27-95 05:54:00Identifier [id number]- 6 Result Time 2019-03-01 05:54:00Unknown Test Item Value Reference Range Comments Unknown (test code = 2823-3) 4.4 mmol/L Unknown 3.5-5.0 F Ordering Physician UnknownLaboratory Sfpggpz7141-41-26 05:54:00Identifier 08065- 6 Result Time 2019-03-01 05:54:00Unknown Test Item Value Reference Range Comments Unknown (test code = 32568-0) 2.5 mg/dL Unknown 1.9-2.7 F Ordering Physician UnknownLaboratory Wttapnt3436-87-77 05:54:00Identifier 89512- 6 Result Time 2019-03-01 05:54:00Unknown Test Item Value Reference Range Comments Unknown (test code = 2345-7) 95 mg/dL Unknown 70-100 F Ordering Physician UnknownLaboratory Iygucwj9093-42-62 05:54:00Identifier 19658- 6 Result Time 2019-03-01 05:54:00Unknown Test Item Value Reference Range Comments Unknown (test code = 87273-8) 128.5 Unknown Unknown F Ordering Physician UnknownLaboratory Iqsfmey1316-99-51 05:54:00Identifier 02376- 6 Result Time 2019-03-01 05:54:00Unknown Test Item Value Reference Range Comments Unknown (test code = NullTestCode) 155.4 Unknown Unknown F Ordering Physician UnknownLaboratory Vjvmyhq7435-84-46 05:54:00Identifier 33170- 6 Result Time 2019-03-01 05:54:00Unknown Test Item Value Reference Range Comments Unknown (test code = 2160-0) 0.64 mg/dL Unknown 0.67-1.17 F Ordering Physician UnknownLaboratory Rwbzjtq3375-94-66 05:54:00Identifier 97304- 6 Result Time 2019-03-01 05:54:00Unknown Test Item Value Reference Range Comments Unknown (test code = 2075-0) 102 mmol/L Unknown 101-111 F Ordering Physician UnknownLaboratory Brdyeqn2493-40-51 05:54:00Identifier 42136- 6 Result Time 2019-03-01 05:54:00Unknown Test Item Value Reference Range Comments Unknown (test code = 2028-9) 29 mmol/L Unknown 22-32 F Ordering Physician UnknownLaboratory Vcxpnzr5254-45-55 05:54:00Identifier 49684- 6 Result Time 2019-03-01 05:54:00Unknown Test Item Value Reference Range Comments Unknown (test code = 54726-5) 8.7 mg/dL Unknown 8.6-10.3 F Ordering Physician UnknownLaboratory Xwkymvx7833-96-27 05:54:00Identifier 96463- 6 Result Time 2019-03-01 05:54:00Unknown Test Item Value Reference Range Comments Unknown (test code = 3094-0) 18 mg/dL Unknown 6-24 F Ordering Physician UnknownLaboratory Qdtzxoa2299-96-68 05:54:00Identifier 67545- 6 Result Time 2019-03-01 05:54:00Unknown Test Item Value Reference Range Comments Unknown (test code = 3097-3) 28.1 Unknown 8-20 F Ordering Physician UnknownLaboratory Ovmcguk5170-14-09 05:54:00Identifier 32881- 6 Result Time 2019-03-01 05:54:00Unknown Test Item Value Reference Range Comments Unknown (test code = 85479-4) 5 mmol/L Unknown 2-11 F Ordering Physician UnknownLaboratory Cxyepvt3584-69-61 08:50:00Identifier 60454- 6 Result Time 2019-02-27 08:50:00Unknown Test Item Value Reference Range Comments Unknown (test code = 77388-0) 5.2 10^3/uL Unknown 3.5-10.8 F Ordering Physician UnknownLaboratory Lssnnna2561-08-62 08:50:00Identifier 27914- 6 Result Time 2019-02-27 08:50:00Unknown Test Item Value Reference Range Comments Unknown (test code = 788-0) 15 % Unknown 10-15 F Ordering Physician UnknownLaboratory Cdbdwjk7767-84-09 08:50:00Identifier 57822- 6 Result Time 2019-02-27 08:50:00Unknown Test Item Value Reference Range Comments Unknown (test code = 789-8) 3.43 10^6 /uL Unknown 4.18-5.48 F Ordering Physician UnknownLaboratory Enkejnz4878-88-43 08:50:00Identifier 51285- 6 Result Time 2019-02-27 08:50:00Unknown Test Item Value Reference Range Comments Unknown (test code = 777-3) 144 10^3/uL Unknown 150-450 F Ordering Physician UnknownLaboratory Fmuqrey0721-98-31 08:50:00Identifier 31076- 6 Result Time 2019-02-27 08:50:00Unknown Test Item Value Reference Range Comments Unknown (test code = 47589-0) 7.9 fL Unknown 7.4-10.4 F Ordering Physician UnknownLaboratory Zuszaip5098-83-69 08:50:00Identifier 20766- 6 Result Time 2019-02-27 08:50:00Unknown Test Item Value Reference Range Comments Unknown (test code = 787-2) 97 fL Unknown 80-94 F Ordering Physician UnknownLaboratory Tjmmjlk6616-72-24 08:50:00Identifier 05733- 6 Result Time 2019-02-27 08:50:00Unknown Test Item Value Reference Range Comments Unknown (test code = 786-4) 34 g/dL Unknown 31-36 F Ordering Physician UnknownLaboratory Sspfypi4833-30-09 08:50:00Identifier 74491- 6 Result Time 2019-02-27 08:50:00Unknown Test Item Value Reference Range Comments Unknown (test code = 785-6) 33 pg Unknown 27-31 F Ordering Physician UnknownLaboratory Jxholxq8965-99-55 08:50:00Identifier 57428- 6 Result Time 2019-02-27 08:50:00Unknown Test Item Value Reference Range Comments Unknown (test code = 718-7) 11.4 g/dL Unknown 14.0-18.0 F Ordering Physician UnknownLaboratory Mfyicny7679-74-13 08:50:00Identifier 52359- 6 Result Time 2019-02-27 08:50:00Unknown Test Item Value Reference Range Comments Unknown (test code = 4544-3) 33 % Unknown 42-52 F Ordering Physician UnknownLaboratory Xyxhlbx3084-26-54 05:21:00Identifier 02345- 6 Result Time 2019-02-26 05:21:00Unknown Test Item Value Reference Range Comments Unknown (test code = 2885-2) 6.1 g/dL Unknown 6.4-8.9 F Ordering Physician UnknownLaboratory Qzroskp8236-23-54 05:21:00Identifier 58980- 6 Result Time 2019-02-26 05:21:00Unknown Test Item Value Reference Range Comments Unknown (test code = 1975-2) 0.90 mg/dL Unknown 0.2-1.0 F Ordering Physician UnknownLaboratory Yxxtluv3899-32-37 05:21:00Identifier 60898- 6 Result Time 2019-02-26 05:21:00Unknown Test Item Value Reference Range Comments Unknown (test code = 2777-1) 3.7 mg/dL Unknown 2.5-5.0 F Ordering Physician UnknownLaboratory Ocegzcf6191-80-05 05:21:00Identifier 64476- 6 Result Time 2019-02-26 05:21:00Unknown Test Item Value Reference Range Comments Unknown (test code = 1971-1) 0.6 mg/dL Unknown 0.3-1.0 F Ordering Physician UnknownLaboratory Xceswmt9056-00-74 05:21:00Identifier 57677- 6 Result Time 2019-02-26 05:21:00Unknown Test Item Value Reference Range Comments Unknown (test code = NullTestCode) 2.5 g/dL Unknown 2-4 F Ordering Physician UnknownLaboratory Stcxzqj1337-97-66 05:21:00Identifier 88996- 6 Result Time 2019-02-26 05:21:00Unknown Test Item Value Reference Range Comments Unknown (test code = 1968-7) 0.30 mg/dL Unknown 0.03-0.18 F Ordering Physician UnknownLaboratory Ldhzsss3124-06-42 05:21:00Identifier 42941- 6 Result Time 2019-02-26 05:21:00Unknown Test Item Value Reference Range Comments Unknown (test code = 1920-8) 112 U/L Unknown 13-39 F Ordering Physician UnknownLaboratory Buhlmwu1059-53-75 05:21:00Identifier 29033- 6 Result Time 2019-02-26 05:21:00Unknown Test Item Value Reference Range Comments Unknown (test code = 6768-6) 342 U/L Unknown 34-104 F Ordering Physician UnknownLaboratory Yvlvnup8068-78-08 05:21:00Identifier 50298- 6 Result Time 2019-02-26 05:21:00Unknown Test Item Value Reference Range Comments Unknown (test code = 1759-0) 1.4 Unknown 1-3 F Ordering Physician UnknownLaboratory Zieqlro5232-59-69 05:21:00Identifier 58310- 6 Result Time 2019-02-26 05:21:00Unknown Test Item Value Reference Range Comments Unknown (test code = 86080-1) 3.6 g/dL Unknown 3.2-5.2 F Ordering Physician UnknownLaboratory Rbcdesi4789-55-10 05:21:00Identifier 26440- 6 Result Time 2019-02-26 05:21:00Unknown Test Item Value Reference Range Comments Unknown (test code = 1742-6) 133 U/L Unknown 7-52 F Ordering Physician UnknownLaboratory Cwygshb0017-44-71 05:21:00Identifier 21248- 6 Result Time 2019-02-26 05:21:00Unknown Test Item Value Reference Range Comments Unknown (test code = 14300-6) 0.1 Unknown Unknown F Ordering Physician UnknownLaboratory Dbkcleh5377-40-69 05:21:00Identifier 16805- 6 Result Time 2019-02-26 05:21:00Unknown Test Item Value Reference Range Comments Unknown (test code = 771-6) 0.0 10^3/ul Unknown Unknown F Ordering Physician UnknownLaboratory Hnyexhe6113-50-42 05:21:00Identifier 98314- 6 Result Time 2019-02-26 05:21:00Unknown Test Item Value Reference Range Comments Unknown (test code = 770-8) 62.9 % Unknown Unknown F Ordering Physician UnknownLaboratory Owoomqf9417-24-50 05:21:00Identifier 27864- 6 Result Time 2019-02-26 05:21:00Unknown Test Item Value Reference Range Comments Unknown (test code = 5905-5) 16.4 % Unknown Unknown F Ordering Physician UnknownLaboratory Tjmfxnh5031-43-87 05:21:00Identifier 32836- 6 Result Time 2019-02-26 05:21:00Unknown Test Item Value Reference Range Comments Unknown (test code = 736-9) 16.5 % Unknown Unknown F Ordering Physician UnknownLaboratory Kszamzt5315-45-89 05:21:00Identifier 54450- 6 Result Time 2019-02-26 05:21:00Unknown Test Item Value Reference Range Comments Unknown (test code = 713-8) 3.4 % Unknown Unknown F Ordering Physician UnknownLaboratory Ensdzgy5933-31-60 05:21:00Identifier 22539- 6 Result Time 2019-02-26 05:21:00Unknown Test Item Value Reference Range Comments Unknown (test code = 706-2) 0.8 % Unknown Unknown F Ordering Physician UnknownLaboratory Irggyoc4256-96-80 05:21:00Identifier 55315- 6 Result Time 2019-02-26 05:21:00Unknown Test Item Value Reference Range Comments Unknown (test code = XMF7480) 2.6 10^3/ul Unknown 1.5-7.7 F Ordering Physician UnknownLaboratory Npotvah9946-33-92 05:21:00Identifier 95457- 6 Result Time 2019-02-26 05:21:00Unknown Test Item Value Reference Range Comments Unknown (test code = 742-7) 0.7 10^3/ul Unknown 0-0.8 F Ordering Physician UnknownLaboratory Yafteci3398-73-48 05:21:00Identifier 87746- 6 Result Time 2019-02-26 05:21:00Unknown Test Item Value Reference Range Comments Unknown (test code = 731-0) 0.7 10^3/ul Unknown 1.0-4.8 F Ordering Physician UnknownLaboratory Nfarike0090-98-19 05:21:00Identifier 60353- 6 Result Time 2019-02-26 05:21:00Unknown Test Item Value Reference Range Comments Unknown (test code = 711-2) 0.1 10^3/ul Unknown 0-0.6 F Ordering Physician UnknownLaboratory Xpnhudn1842-02-92 05:21:00Identifier 07259- 6 Result Time 2019-02-26 05:21:00Unknown Test Item Value Reference Range Comments Unknown (test code = 704-7) 0.0 10^3/ul Unknown 0-0.2 F Ordering Physician UnknownLaboratory Nrxosmm6740-75-54 18:33:00Identifier 37835- 6 Result Time 2019-02-23 18:33:00Unknown Test Item Value Reference Range Comments Unknown (test code = 5643-2) 236 mg/dL Unknown 0-10 F Ordering Physician UnknownLaboratory Abvblgu1351-21-02 18:33:00Identifier 24765- 6 Result Time 2019-02-23 18:33:00Unknown Test Item Value Reference Range Comments Unknown (test code = 13340-9) 0.89 Unknown 0.82-1.09 F Ordering Physician UnknownLaboratory Alxkhhz2438-93-93 18:33:00Identifier 35852- 6 Result Time 2019-02-23 18:33:00Unknown Test Item Value Reference Range Comments Unknown (test code = 78191-7) 31.2 seconds Unknown 26.0-38.0 F Ordering Physician UnknownLaboratory Pdlexih9099-39-88 18:33:00Identifier 95568- 6 Result Time 2019-02-23 18:33:00Unknown Test Item Value Reference Range Comments Unknown (test code = 2524-7) 1.6 mmol/L Unknown 0.5-2.0 F Ordering Physician UnknownLaboratory Myxsytc2884-39-50 18:32:00Identifier 33651- 6 Result Time 2019-02-23 18:32:00Unknown Test Item Value Reference Range Comments Unknown (test code = 45591-9) 0.01 s/c Unknown Unknown F Ordering Physician Unknown
--- OUTSIDE RECORDS SUMMARY | 2019-06-26 14:44 | XMS REPORT | Continuity of Care Document ---
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 06/26/19 Tobacco Use Start: Unknown Patient has never smoked Smoking Status Reviewed: 06/26/19 Patient has never smoked Allergies, Adverse Reactions, Alerts Active Allergies Reaction Severity Comments Date Amoxicillin 03/28/2018 Medications Active Medications SIG Qnty Indications Ordering Provider Date Testosterone Cypionate Unknown 200mg/ml Solution Primidone Take 1 Tablet By Unknown 250mg Tablets Mouth Three Times Daily Propranolol HCL ER Take 1 Capsule By Unknown 120mg Mouth Every Day Caps ER 24HR Xifaxan Take 1 Tablet By Unknown 550mg Tablets Mouth Two Times Daily Amlodipine Besylate Take 1 Tablet By Unknown 10mg Mouth Every Day Tablets Labetalol HCL 1 by mouth twice Unknown 100mg a day Tablets Gabapentin Daily Unknown 300mg Capsules Immunizations Description No Information Available Vital Signs Date Vital Result Comment 06/26/2019 1:22pm Height 67 inches 5'7" Weight 138.00 lb BMI (Body Mass Index) 21.6 kg/m2 11/14/2018 9:14am Height 67 inches 5'7" Weight 150.00 lb BMI (Body Mass Index) 23.5 kg/m2 Results Description No Information Available Procedures Description No Information Available Medical Devices Description No Information Available Encounters Description No Information Available Assessments Date Code Description Provider 06/26/2019 R45.851 Suicidal ideations Hamzah FossDO 06/26/2019 E51.2 Wernicke's encephalopathy Hamzah FossDO 06/26/2019 Z71.41 Alcohol abuse counseling and surveillance of Hamzah Foss DO alcoholic Plan of Treatment No Information Available Functional Status Description No Information Available Mental Status Description No Information Available Referrals Description No Information Available
--- OUTSIDE RECORDS SUMMARY | 2019-06-26 14:44 | XMS REPORT ---
:1960 Author Organization [facility] Care Team Providers Name Role Phone Unavailable [...] Result Comments Laboratory Studies 2019-03-01 05:54:00 Identifier [id number] Result Time Unknown 2019-03-01 05:54:00 Test Item Value Reference Range Comments Unknown (test code = 2951-2) 136 mmol/L Unknown 135-145 F Ordering Physician UnknownLaboratory Icnozrf1584-49-90 05:54:00Identifier [id number]- 6 Result Time 2019-03-01 05:54:00Unknown Test Item Value Reference Range Comments Unknown (test code = 2823-3) 4.4 mmol/L Unknown 3.5-5.0 F Ordering Physician UnknownLaboratory Jepxhch0270-82-23 05:54:00Identifier [id number]- 6 Result Time 2019-03-01 05:54:00Unknown Test Item Value Reference Range Comments Unknown (test code = 01262-3) 2.5 mg/dL Unknown 1.9-2.7 F Ordering Physician UnknownLaboratory Ozdaugw1977-29-62 05:54:00Identifier 95260- 6 Result Time 2019-03-01 05:54:00Unknown Test Item Value Reference Range Comments Unknown (test code = 2345-7) 95 mg/dL Unknown 70-100 F Ordering Physician UnknownLaboratory Atjpghn9664-83-93 05:54:00Identifier 33112- 6 Result Time 2019-03-01 05:54:00Unknown Test Item Value Reference Range Comments Unknown (test code = 39819-3) 128.5 Unknown Unknown F Ordering Physician UnknownLaboratory Jksydzv3880-11-98 05:54:00Identifier [id number]- 6 Result Time 2019-03-01 05:54:00Unknown Test Item Value Reference Range Comments Unknown (test code = NullTestCode) 155.4 Unknown Unknown F Ordering Physician UnknownLaboratory Lytadca1149-49-73 05:54:00Identifier 89745- 6 Result Time 2019-03-01 05:54:00Unknown Test Item Value Reference Range Comments Unknown (test code = 2160-0) 0.64 mg/dL Unknown 0.67-1.17 F Ordering Physician UnknownLaboratory Nhtppwg8102-81-99 05:54:00Identifier 20247- 6 Result Time 2019-03-01 05:54:00Unknown Test Item Value Reference Range Comments Unknown (test code = 2075-0) 102 mmol/L Unknown 101-111 F Ordering Physician UnknownLaboratory Anmynnk3713-38-79 05:54:00Identifier 85364- 6 Result Time 2019-03-01 05:54:00Unknown Test Item Value Reference Range Comments Unknown (test code = 2028-9) 29 mmol/L Unknown 22-32 F Ordering Physician UnknownLaboratory Zlibazw2655-20-50 05:54:00Identifier 57726- 6 Result Time 2019-03-01 05:54:00Unknown Test Item Value Reference Range Comments Unknown (test code = 58147-2) 8.7 mg/dL Unknown 8.6-10.3 F Ordering Physician UnknownLaboratory Rdmpeeu9749-15-72 05:54:00Identifier 48290- 6 Result Time 2019-03-01 05:54:00Unknown Test Item Value Reference Range Comments Unknown (test code = 3094-0) 18 mg/dL Unknown 6-24 F Ordering Physician UnknownLaboratory Wzwlmnz7216-27-27 05:54:00Identifier 46684- 6 Result Time 2019-03-01 05:54:00Unknown Test Item Value Reference Range Comments Unknown (test code = 3097-3) 28.1 Unknown 8-20 F Ordering Physician UnknownLaboratory Nwqwhww8660-99-16 05:54:00Identifier 35204- 6 Result Time 2019-03-01 05:54:00Unknown Test Item Value Reference Range Comments Unknown (test code = 47718-6) 5 mmol/L Unknown 2-11 F Ordering Physician UnknownLaboratory Djofghv2004-68-31 08:50:00Identifier 30187- 6 Result Time 2019-02-27 08:50:00Unknown Test Item Value Reference Range Comments Unknown (test code = 63615-6) 5.2 10^3/uL Unknown 3.5-10.8 F Ordering Physician UnknownLaboratory Brrhhiv9484-52-54 08:50:00Identifier 43469- 6 Result Time 2019-02-27 08:50:00Unknown Test Item Value Reference Range Comments Unknown (test code = 788-0) 15 % Unknown 10-15 F Ordering Physician UnknownLaboratory Uhroazm3230-35-66 08:50:00Identifier 79106- 6 Result Time 2019-02-27 08:50:00Unknown Test Item Value Reference Range Comments Unknown (test code = 789-8) 3.43 10^6 /uL Unknown 4.18-5.48 F Ordering Physician UnknownLaboratory Cuojaag5453-09-34 08:50:00Identifier 96384- 6 Result Time 2019-02-27 08:50:00Unknown Test Item Value Reference Range Comments Unknown (test code = 777-3) 144 10^3/uL Unknown 150-450 F Ordering Physician UnknownLaboratory Xaswsvr1879-58-45 08:50:00Identifier 42773- 6 Result Time 2019-02-27 08:50:00Unknown Test Item Value Reference Range Comments Unknown (test code = 46108-7) 7.9 fL Unknown 7.4-10.4 F Ordering Physician UnknownLaboratory Ububfao4203-62-06 08:50:00Identifier 49752- 6 Result Time 2019-02-27 08:50:00Unknown Test Item Value Reference Range Comments Unknown (test code = 787-2) 97 fL Unknown 80-94 F Ordering Physician UnknownLaboratory Ahbevpn5847-60-53 08:50:00Identifier 25370- 6 Result Time 2019-02-27 08:50:00Unknown Test Item Value Reference Range Comments Unknown (test code = 786-4) 34 g/dL Unknown 31-36 F Ordering Physician UnknownLaboratory Iwlfjdr4266-92-07 08:50:00Identifier 26943- 6 Result Time 2019-02-27 08:50:00Unknown Test Item Value Reference Range Comments Unknown (test code = 785-6) 33 pg Unknown 27-31 F Ordering Physician UnknownLaboratory Lhcjduy6774-13-21 08:50:00Identifier 03803- 6 Result Time 2019-02-27 08:50:00Unknown Test Item Value Reference Range Comments Unknown (test code = 718-7) 11.4 g/dL Unknown 14.0-18.0 F Ordering Physician UnknownLaboratory Pjczpmd3833-32-46 08:50:00Identifier 24617- 6 Result Time 2019-02-27 08:50:00Unknown Test Item Value Reference Range Comments Unknown (test code = 4544-3) 33 % Unknown 42-52 F Ordering Physician UnknownLaboratory Ctsklwi3198-13-11 05:21:00Identifier 99317- 6 Result Time 2019-02-26 05:21:00Unknown Test Item Value Reference Range Comments Unknown (test code = 2885-2) 6.1 g/dL Unknown 6.4-8.9 F Ordering Physician UnknownLaboratory Ijejlmj5098-78-06 05:21:00Identifier 09376- 6 Result Time 2019-02-26 05:21:00Unknown Test Item Value Reference Range Comments Unknown (test code = 1975-2) 0.90 mg/dL Unknown 0.2-1.0 F Ordering Physician UnknownLaboratory Lkhbhpt1950-21-16 05:21:00Identifier 37572- 6 Result Time 2019-02-26 05:21:00Unknown Test Item Value Reference Range Comments Unknown (test code = 2777-1) 3.7 mg/dL Unknown 2.5-5.0 F Ordering Physician UnknownLaboratory Mhstaly1691-77-10 05:21:00Identifier 41333- 6 Result Time 2019-02-26 05:21:00Unknown Test Item Value Reference Range Comments Unknown (test code = 1971-1) 0.6 mg/dL Unknown 0.3-1.0 F Ordering Physician UnknownLaboratory Srfkyob6048-31-13 05:21:00Identifier 55929- 6 Result Time 2019-02-26 05:21:00Unknown Test Item Value Reference Range Comments Unknown (test code = NullTestCode) 2.5 g/dL Unknown 2-4 F Ordering Physician UnknownLaboratory Tnquhhy1996-91-02 05:21:00Identifier 70701- 6 Result Time 2019-02-26 05:21:00Unknown Test Item Value Reference Range Comments Unknown (test code = 1968-7) 0.30 mg/dL Unknown 0.03-0.18 F Ordering Physician UnknownLaboratory Wyygptg2656-95-20 05:21:00Identifier 23153- 6 Result Time 2019-02-26 05:21:00Unknown Test Item Value Reference Range Comments Unknown (test code = 1920-8) 112 U/L Unknown 13-39 F Ordering Physician UnknownLaboratory Cejyikg0767-07-38 05:21:00Identifier 41041- 6 Result Time 2019-02-26 05:21:00Unknown Test Item Value Reference Range Comments Unknown (test code = 6768-6) 342 U/L Unknown 34-104 F Ordering Physician UnknownLaboratory Vhhwmmf7724-84-99 05:21:00Identifier 61650- 6 Result Time 2019-02-26 05:21:00Unknown Test Item Value Reference Range Comments Unknown (test code = 1759-0) 1.4 Unknown 1-3 F Ordering Physician UnknownLaboratory Sfewhjl3375-27-47 05:21:00Identifier 57573- 6 Result Time 2019-02-26 05:21:00Unknown Test Item Value Reference Range Comments Unknown (test code = 15283-5) 3.6 g/dL Unknown 3.2-5.2 F Ordering Physician UnknownLaboratory Hvjrxuq9866-15-82 05:21:00Identifier 70127- 6 Result Time 2019-02-26 05:21:00Unknown Test Item Value Reference Range Comments Unknown (test code = 1742-6) 133 U/L Unknown 7-52 F Ordering Physician UnknownLaboratory Mxjitct3411-84-45 05:21:00Identifier 15516- 6 Result Time 2019-02-26 05:21:00Unknown Test Item Value Reference Range Comments Unknown (test code = 38206-1) 0.1 Unknown Unknown F Ordering Physician UnknownLaboratory Larrjwn2149-36-15 05:21:00Identifier 09575- 6 Result Time 2019-02-26 05:21:00Unknown Test Item Value Reference Range Comments Unknown (test code = 771-6) 0.0 10^3/ul Unknown Unknown F Ordering Physician UnknownLaboratory Viocsox8337-91-74 05:21:00Identifier 25476- 6 Result Time 2019-02-26 05:21:00Unknown Test Item Value Reference Range Comments Unknown (test code = 770-8) 62.9 % Unknown Unknown F Ordering Physician UnknownLaboratory Pmbtmth1389-25-97 05:21:00Identifier 84126- 6 Result Time 2019-02-26 05:21:00Unknown Test Item Value Reference Range Comments Unknown (test code = 5905-5) 16.4 % Unknown Unknown F Ordering Physician UnknownLaboratory Emdzyxc1789-50-31 05:21:00Identifier 64774- 6 Result Time 2019-02-26 05:21:00Unknown Test Item Value Reference Range Comments Unknown (test code = 736-9) 16.5 % Unknown Unknown F Ordering Physician UnknownLaboratory Tlvfyoa0119-73-37 05:21:00Identifier 44201- 6 Result Time 2019-02-26 05:21:00Unknown Test Item Value Reference Range Comments Unknown (test code = 713-8) 3.4 % Unknown Unknown F Ordering Physician UnknownLaboratory Bpoklbl0719-67-44 05:21:00Identifier 88382- 6 Result Time 2019-02-26 05:21:00Unknown Test Item Value Reference Range Comments Unknown (test code = 706-2) 0.8 % Unknown Unknown F Ordering Physician UnknownLaboratory Mviyyfz2952-60-29 05:21:00Identifier 90450- 6 Result Time 2019-02-26 05:21:00Unknown Test Item Value Reference Range Comments Unknown (test code = JAO3289) 2.6 10^3/ul Unknown 1.5-7.7 F Ordering Physician UnknownLaboratory Hueqckg2202-64-52 05:21:00Identifier 26162- 6 Result Time 2019-02-26 05:21:00Unknown Test Item Value Reference Range Comments Unknown (test code = 742-7) 0.7 10^3/ul Unknown 0-0.8 F Ordering Physician UnknownLaboratory Wngjlex4098-69-51 05:21:00Identifier 91885- 6 Result Time 2019-02-26 05:21:00Unknown Test Item Value Reference Range Comments Unknown (test code = 731-0) 0.7 10^3/ul Unknown 1.0-4.8 F Ordering Physician UnknownLaboratory Squxlak5833-50-95 05:21:00Identifier 90276- 6 Result Time 2019-02-26 05:21:00Unknown Test Item Value Reference Range Comments Unknown (test code = 711-2) 0.1 10^3/ul Unknown 0-0.6 F Ordering Physician UnknownLaboratory Ibpavjo5943-24-11 05:21:00Identifier 34237- 6 Result Time 2019-02-26 05:21:00Unknown Test Item Value Reference Range Comments Unknown (test code = 704-7) 0.0 10^3/ul Unknown 0-0.2 F Ordering Physician UnknownLaboratory Ovxemcn2854-25-31 18:33:00Identifier 93988- 6 Result Time 2019-02-23 18:33:00Unknown Test Item Value Reference Range Comments Unknown (test code = 5643-2) 236 mg/dL Unknown 0-10 F Ordering Physician UnknownLaboratory Fdlsnqv5458-01-05 18:33:00Identifier 65291- 6 Result Time 2019-02-23 18:33:00Unknown Test Item Value Reference Range Comments Unknown (test code = 82774-2) 0.89 Unknown 0.82-1.09 F Ordering Physician UnknownLaboratory Rhwysgd2750-79-99 18:33:00Identifier 49461- 6 Result Time 2019-02-23 18:33:00Unknown Test Item Value Reference Range Comments Unknown (test code = 28760-7) 31.2 seconds Unknown 26.0-38.0 F Ordering Physician UnknownLaboratory Plidrit0219-50-76 18:33:00Identifier 64446- 6 Result Time 2019-02-23 18:33:00Unknown Test Item Value Reference Range Comments Unknown (test code = 2524-7) 1.6 mmol/L Unknown 0.5-2.0 F Ordering Physician UnknownLaboratory Qfyzorv9636-17-40 18:32:00Identifier 09335- 6 Result Time 2019-02-23 18:32:00Unknown Test Item Value Reference Range Comments Unknown (test code = 73843-4) 0.01 s/c Unknown Unknown F Ordering Physician Unknown
--- OUTSIDE RECORDS SUMMARY | 2019-06-26 14:44 | XMS REPORT ---
:1960 Author Organization [facility] Care Team Providers Name Role Phone Unavailable [...] Result Comments Laboratory Studies 2019-03-01 05:54:00 Identifier [id number] Result Time Unknown 2019-03-01 05:54:00 Test Item Value Reference Range Comments Unknown (test code = 2951-2) 136 mmol/L Unknown 135-145 F Ordering Physician UnknownLaboratory Gksrpxn3140-70-59 05:54:00Identifier 88953- 6 Result Time 2019-03-01 05:54:00Unknown Test Item Value Reference Range Comments Unknown (test code = 2823-3) 4.4 mmol/L Unknown 3.5-5.0 F Ordering Physician UnknownLaboratory Yakedoc7813-24-45 05:54:00Identifier 66568- 6 Result Time 2019-03-01 05:54:00Unknown Test Item Value Reference Range Comments Unknown (test code = 50124-6) 2.5 mg/dL Unknown 1.9-2.7 F Ordering Physician UnknownLaboratory Okrthts2051-55-63 05:54:00Identifier 13693- 6 Result Time 2019-03-01 05:54:00Unknown Test Item Value Reference Range Comments Unknown (test code = 2345-7) 95 mg/dL Unknown 70-100 F Ordering Physician UnknownLaboratory Fxmqmvh3423-39-85 05:54:00Identifier 87166- 6 Result Time 2019-03-01 05:54:00Unknown Test Item Value Reference Range Comments Unknown (test code = 98253-4) 128.5 Unknown Unknown F Ordering Physician UnknownLaboratory Pntejsk7292-56-96 05:54:00Identifier 37054- 6 Result Time 2019-03-01 05:54:00Unknown Test Item Value Reference Range Comments Unknown (test code = NullTestCode) 155.4 Unknown Unknown F Ordering Physician UnknownLaboratory Lxhckwh6531-56-33 05:54:00Identifier 65504- 6 Result Time 2019-03-01 05:54:00Unknown Test Item Value Reference Range Comments Unknown (test code = 2160-0) 0.64 mg/dL Unknown 0.67-1.17 F Ordering Physician UnknownLaboratory Bboyzqg8389-92-76 05:54:00Identifier 67175- 6 Result Time 2019-03-01 05:54:00Unknown Test Item Value Reference Range Comments Unknown (test code = 2075-0) 102 mmol/L Unknown 101-111 F Ordering Physician UnknownLaboratory Mzkjtsp8802-57-47 05:54:00Identifier 17158- 6 Result Time 2019-03-01 05:54:00Unknown Test Item Value Reference Range Comments Unknown (test code = 2028-9) 29 mmol/L Unknown 22-32 F Ordering Physician UnknownLaboratory Rfuzonk6105-61-91 05:54:00Identifier 92778- 6 Result Time 2019-03-01 05:54:00Unknown Test Item Value Reference Range Comments Unknown (test code = 14779-3) 8.7 mg/dL Unknown 8.6-10.3 F Ordering Physician UnknownLaboratory Mkoutre3497-87-72 05:54:00Identifier 79947- 6 Result Time 2019-03-01 05:54:00Unknown Test Item Value Reference Range Comments Unknown (test code = 3094-0) 18 mg/dL Unknown 6-24 F Ordering Physician UnknownLaboratory Idaifoy6714-43-52 05:54:00Identifier 48446- 6 Result Time 2019-03-01 05:54:00Unknown Test Item Value Reference Range Comments Unknown (test code = 3097-3) 28.1 Unknown 8-20 F Ordering Physician UnknownLaboratory Mdgttgl9574-94-41 05:54:00Identifier 51495- 6 Result Time 2019-03-01 05:54:00Unknown Test Item Value Reference Range Comments Unknown (test code = 54596-5) 5 mmol/L Unknown 2-11 F Ordering Physician UnknownLaboratory Ocupxqk3160-66-46 08:50:00Identifier 02036- 6 Result Time 2019-02-27 08:50:00Unknown Test Item Value Reference Range Comments Unknown (test code = 32110-6) 5.2 10^3/uL Unknown 3.5-10.8 F Ordering Physician UnknownLaboratory Drvtdhh4442-41-74 08:50:00Identifier 01088- 6 Result Time 2019-02-27 08:50:00Unknown Test Item Value Reference Range Comments Unknown (test code = 788-0) 15 % Unknown 10-15 F Ordering Physician UnknownLaboratory Enmmxnd3265-46-86 08:50:00Identifier 71279- 6 Result Time 2019-02-27 08:50:00Unknown Test Item Value Reference Range Comments Unknown (test code = 789-8) 3.43 10^6 /uL Unknown 4.18-5.48 F Ordering Physician UnknownLaboratory Bimkpom4254-60-30 08:50:00Identifier 01005- 6 Result Time 2019-02-27 08:50:00Unknown Test Item Value Reference Range Comments Unknown (test code = 777-3) 144 10^3/uL Unknown 150-450 F Ordering Physician UnknownLaboratory Tjqdvpz4109-11-63 08:50:00Identifier 96244- 6 Result Time 2019-02-27 08:50:00Unknown Test Item Value Reference Range Comments Unknown (test code = 65315-2) 7.9 fL Unknown 7.4-10.4 F Ordering Physician UnknownLaboratory Apckuyf0216-22-69 08:50:00Identifier 69184- 6 Result Time 2019-02-27 08:50:00Unknown Test Item Value Reference Range Comments Unknown (test code = 787-2) 97 fL Unknown 80-94 F Ordering Physician UnknownLaboratory Awondhj5706-45-39 08:50:00Identifier 73330- 6 Result Time 2019-02-27 08:50:00Unknown Test Item Value Reference Range Comments Unknown (test code = 786-4) 34 g/dL Unknown 31-36 F Ordering Physician UnknownLaboratory Xlhdvxy1673-76-12 08:50:00Identifier 73000- 6 Result Time 2019-02-27 08:50:00Unknown Test Item Value Reference Range Comments Unknown (test code = 785-6) 33 pg Unknown 27-31 F Ordering Physician UnknownLaboratory Rnldnbh6292-51-28 08:50:00Identifier 16882- 6 Result Time 2019-02-27 08:50:00Unknown Test Item Value Reference Range Comments Unknown (test code = 718-7) 11.4 g/dL Unknown 14.0-18.0 F Ordering Physician UnknownLaboratory Dxgmhsc7894-71-13 08:50:00Identifier 61540- 6 Result Time 2019-02-27 08:50:00Unknown Test Item Value Reference Range Comments Unknown (test code = 4544-3) 33 % Unknown 42-52 F Ordering Physician UnknownLaboratory Buwydxo4145-34-52 05:21:00Identifier 89311- 6 Result Time 2019-02-26 05:21:00Unknown Test Item Value Reference Range Comments Unknown (test code = 2885-2) 6.1 g/dL Unknown 6.4-8.9 F Ordering Physician UnknownLaboratory Wsayqvc0354-42-87 05:21:00Identifier 52973- 6 Result Time 2019-02-26 05:21:00Unknown Test Item Value Reference Range Comments Unknown (test code = 1975-2) 0.90 mg/dL Unknown 0.2-1.0 F Ordering Physician UnknownLaboratory Rxlyzvr4980-05-87 05:21:00Identifier 50474- 6 Result Time 2019-02-26 05:21:00Unknown Test Item Value Reference Range Comments Unknown (test code = 2777-1) 3.7 mg/dL Unknown 2.5-5.0 F Ordering Physician UnknownLaboratory Zwrnrsz7525-97-02 05:21:00Identifier 05783- 6 Result Time 2019-02-26 05:21:00Unknown Test Item Value Reference Range Comments Unknown (test code = 1971-1) 0.6 mg/dL Unknown 0.3-1.0 F Ordering Physician UnknownLaboratory Jfomxjm7509-29-06 05:21:00Identifier 83991- 6 Result Time 2019-02-26 05:21:00Unknown Test Item Value Reference Range Comments Unknown (test code = NullTestCode) 2.5 g/dL Unknown 2-4 F Ordering Physician UnknownLaboratory Ceznfmr4732-00-46 05:21:00Identifier 64324- 6 Result Time 2019-02-26 05:21:00Unknown Test Item Value Reference Range Comments Unknown (test code = 1968-7) 0.30 mg/dL Unknown 0.03-0.18 F Ordering Physician UnknownLaboratory Bdinsjb0023-43-90 05:21:00Identifier 99838- 6 Result Time 2019-02-26 05:21:00Unknown Test Item Value Reference Range Comments Unknown (test code = 1920-8) 112 U/L Unknown 13-39 F Ordering Physician UnknownLaboratory Bmaldpd5848-13-50 05:21:00Identifier 21739- 6 Result Time 2019-02-26 05:21:00Unknown Test Item Value Reference Range Comments Unknown (test code = 6768-6) 342 U/L Unknown 34-104 F Ordering Physician UnknownLaboratory Xaywgby9080-03-49 05:21:00Identifier 48554- 6 Result Time 2019-02-26 05:21:00Unknown Test Item Value Reference Range Comments Unknown (test code = 1759-0) 1.4 Unknown 1-3 F Ordering Physician UnknownLaboratory Havgwbt6075-60-84 05:21:00Identifier 03643- 6 Result Time 2019-02-26 05:21:00Unknown Test Item Value Reference Range Comments Unknown (test code = 80339-8) 3.6 g/dL Unknown 3.2-5.2 F Ordering Physician UnknownLaboratory Xecrekd7123-43-89 05:21:00Identifier 51102- 6 Result Time 2019-02-26 05:21:00Unknown Test Item Value Reference Range Comments Unknown (test code = 1742-6) 133 U/L Unknown 7-52 F Ordering Physician UnknownLaboratory Bmivkeb3880-71-55 05:21:00Identifier 56029- 6 Result Time 2019-02-26 05:21:00Unknown Test Item Value Reference Range Comments Unknown (test code = 92369-7) 0.1 Unknown Unknown F Ordering Physician UnknownLaboratory Vclzanz0355-02-11 05:21:00Identifier 08433- 6 Result Time 2019-02-26 05:21:00Unknown Test Item Value Reference Range Comments Unknown (test code = 771-6) 0.0 10^3/ul Unknown Unknown F Ordering Physician UnknownLaboratory Njvsvkm3370-46-57 05:21:00Identifier 68137- 6 Result Time 2019-02-26 05:21:00Unknown Test Item Value Reference Range Comments Unknown (test code = 770-8) 62.9 % Unknown Unknown F Ordering Physician UnknownLaboratory Tgdofde4826-16-49 05:21:00Identifier 80716- 6 Result Time 2019-02-26 05:21:00Unknown Test Item Value Reference Range Comments Unknown (test code = 5905-5) 16.4 % Unknown Unknown F Ordering Physician UnknownLaboratory Arygsxx1209-32-20 05:21:00Identifier 54956- 6 Result Time 2019-02-26 05:21:00Unknown Test Item Value Reference Range Comments Unknown (test code = 736-9) 16.5 % Unknown Unknown F Ordering Physician UnknownLaboratory Aeydejq8427-76-88 05:21:00Identifier 85874- 6 Result Time 2019-02-26 05:21:00Unknown Test Item Value Reference Range Comments Unknown (test code = 713-8) 3.4 % Unknown Unknown F Ordering Physician UnknownLaboratory Vqohhci4050-19-85 05:21:00Identifier 84950- 6 Result Time 2019-02-26 05:21:00Unknown Test Item Value Reference Range Comments Unknown (test code = 706-2) 0.8 % Unknown Unknown F Ordering Physician UnknownLaboratory Gimocdm7373-31-56 05:21:00Identifier 08130- 6 Result Time 2019-02-26 05:21:00Unknown Test Item Value Reference Range Comments Unknown (test code = TGT3627) 2.6 10^3/ul Unknown 1.5-7.7 F Ordering Physician UnknownLaboratory Yrqvvdx3626-58-02 05:21:00Identifier 72388- 6 Result Time 2019-02-26 05:21:00Unknown Test Item Value Reference Range Comments Unknown (test code = 742-7) 0.7 10^3/ul Unknown 0-0.8 F Ordering Physician UnknownLaboratory Culvwnf7523-34-53 05:21:00Identifier 18978- 6 Result Time 2019-02-26 05:21:00Unknown Test Item Value Reference Range Comments Unknown (test code = 731-0) 0.7 10^3/ul Unknown 1.0-4.8 F Ordering Physician UnknownLaboratory Jcutvqm1247-59-76 05:21:00Identifier 24342- 6 Result Time 2019-02-26 05:21:00Unknown Test Item Value Reference Range Comments Unknown (test code = 711-2) 0.1 10^3/ul Unknown 0-0.6 F Ordering Physician UnknownLaboratory Oyonptr3360-83-60 05:21:00Identifier 37247- 6 Result Time 2019-02-26 05:21:00Unknown Test Item Value Reference Range Comments Unknown (test code = 704-7) 0.0 10^3/ul Unknown 0-0.2 F Ordering Physician UnknownLaboratory Jlewvnm7803-67-85 18:33:00Identifier 48586- 6 Result Time 2019-02-23 18:33:00Unknown Test Item Value Reference Range Comments Unknown (test code = 5643-2) 236 mg/dL Unknown 0-10 F Ordering Physician UnknownLaboratory Twxcwnk6648-08-64 18:33:00Identifier 11235- 6 Result Time 2019-02-23 18:33:00Unknown Test Item Value Reference Range Comments Unknown (test code = 58261-8) 0.89 Unknown 0.82-1.09 F Ordering Physician UnknownLaboratory Rxsdnnz5948-67-52 18:33:00Identifier 93438- 6 Result Time 2019-02-23 18:33:00Unknown Test Item Value Reference Range Comments Unknown (test code = 83700-9) 31.2 seconds Unknown 26.0-38.0 F Ordering Physician UnknownLaboratory Wqsdvhz4085-29-51 18:33:00Identifier 23214- 6 Result Time 2019-02-23 18:33:00Unknown Test Item Value Reference Range Comments Unknown (test code = 2524-7) 1.6 mmol/L Unknown 0.5-2.0 F Ordering Physician UnknownLaboratory Rfdaxik8710-14-12 18:32:00Identifier 99603- 6 Result Time 2019-02-23 18:32:00Unknown Test Item Value Reference Range Comments Unknown (test code = 53069-9) 0.01 s/c Unknown Unknown F Ordering Physician Unknown
--- OUTSIDE RECORDS SUMMARY | 2019-06-26 14:44 | XMS REPORT ---
:1960 Author Organization [facility] Care Team Providers Name Role Phone Unavailable [...] Result Comments Laboratory Studies 2019-03-01 05:54:00 Identifier [id number] Result Time Unknown 2019-03-01 05:54:00 Test Item Value Reference Range Comments Unknown (test code = 2951-2) 136 mmol/L Unknown 135-145 F Ordering Physician UnknownLaboratory Hnikiou1518-47-37 05:54:00Identifier [id number] Result Time 2019-03-01 05:54:00Unknown Test Item Value Reference Range Comments Unknown (test code = 2823-3) 4.4 mmol/L Unknown 3.5-5.0 F Ordering Physician UnknownLaboratory Jmazozg8504-52-90 05:54:00Identifier [id number]- 6 Result Time 2019-03-01 05:54:00Unknown Test Item Value Reference Range Comments Unknown (test code = 69175-3) 2.5 mg/dL Unknown 1.9-2.7 F Ordering Physician UnknownLaboratory Nwzfsjs0198-49-24 05:54:00Identifier [id number]- 6 Result Time 2019-03-01 05:54:00Unknown Test Item Value Reference Range Comments Unknown (test code = 2345-7) 95 mg/dL Unknown 70-100 F Ordering Physician UnknownLaboratory Pcufcow6235-48-63 05:54:00Identifier [id number]- 6 Result Time 2019-03-01 05:54:00Unknown Test Item Value Reference Range Comments Unknown (test code = 53418-9) 128.5 Unknown Unknown F Ordering Physician UnknownLaboratory Derbcnp9436-54-33 05:54:00Identifier [id number]- 6 Result Time 2019-03-01 05:54:00Unknown Test Item Value Reference Range Comments Unknown (test code = NullTestCode) 155.4 Unknown Unknown F Ordering Physician UnknownLaboratory Gathche1115-45-64 05:54:00Identifier [id number]- 6 Result Time 2019-03-01 05:54:00Unknown Test Item Value Reference Range Comments Unknown (test code = 2160-0) 0.64 mg/dL Unknown 0.67-1.17 F Ordering Physician UnknownLaboratory Hnuggii9247-42-50 05:54:00Identifier [id number]- 6 Result Time 2019-03-01 05:54:00Unknown Test Item Value Reference Range Comments Unknown (test code = 2075-0) 102 mmol/L Unknown 101-111 F Ordering Physician UnknownLaboratory Xdploqw7066-98-98 05:54:00Identifier [id number]- 6 Result Time 2019-03-01 05:54:00Unknown Test Item Value Reference Range Comments Unknown (test code = 2028-9) 29 mmol/L Unknown 22-32 F Ordering Physician UnknownLaboratory Xeyhend7513-71-80 05:54:00Identifier [id number]- 6 Result Time 2019-03-01 05:54:00Unknown Test Item Value Reference Range Comments Unknown (test code = 88782-3) 8.7 mg/dL Unknown 8.6-10.3 F Ordering Physician UnknownLaboratory Fipoabv3888-21-83 05:54:00Identifier [id number]- 6 Result Time 2019-03-01 05:54:00Unknown Test Item Value Reference Range Comments Unknown (test code = 3094-0) 18 mg/dL Unknown 6-24 F Ordering Physician UnknownLaboratory Dqbvbtw6846-69-30 05:54:00Identifier [id number]- 6 Result Time 2019-03-01 05:54:00Unknown Test Item Value Reference Range Comments Unknown (test code = 3097-3) 28.1 Unknown 8-20 F Ordering Physician UnknownLaboratory Ivbenht6435-79-95 05:54:00Identifier [id number]- 6 Result Time 2019-03-01 05:54:00Unknown Test Item Value Reference Range Comments Unknown (test code = 42294-3) 5 mmol/L Unknown 2-11 F Ordering Physician UnknownLaboratory Dgipkvr3098-83-99 08:50:00Identifier 58506- 6 Result Time 2019-02-27 08:50:00Unknown Test Item Value Reference Range Comments Unknown (test code = 20235-4) 5.2 10^3/uL Unknown 3.5-10.8 F Ordering Physician UnknownLaboratory Hhzntff2079-30-98 08:50:00Identifier 52910- 6 Result Time 2019-02-27 08:50:00Unknown Test Item Value Reference Range Comments Unknown (test code = 788-0) 15 % Unknown 10-15 F Ordering Physician UnknownLaboratory Wnvvtqd8928-97-02 08:50:00Identifier 77046- 6 Result Time 2019-02-27 08:50:00Unknown Test Item Value Reference Range Comments Unknown (test code = 789-8) 3.43 10^6 /uL Unknown 4.18-5.48 F Ordering Physician UnknownLaboratory Iknwjeq2405-43-86 08:50:00Identifier 65410- 6 Result Time 2019-02-27 08:50:00Unknown Test Item Value Reference Range Comments Unknown (test code = 777-3) 144 10^3/uL Unknown 150-450 F Ordering Physician UnknownLaboratory Ubxdxun2406-18-71 08:50:00Identifier 65945- 6 Result Time 2019-02-27 08:50:00Unknown Test Item Value Reference Range Comments Unknown (test code = 89370-0) 7.9 fL Unknown 7.4-10.4 F Ordering Physician UnknownLaboratory Ioyhxxc1963-02-04 08:50:00Identifier [id number]- 6 Result Time 2019-02-27 08:50:00Unknown Test Item Value Reference Range Comments Unknown (test code = 787-2) 97 fL Unknown 80-94 F Ordering Physician UnknownLaboratory Ocphwmg3389-01-05 08:50:00Identifier [id number]- 6 Result Time 2019-02-27 08:50:00Unknown Test Item Value Reference Range Comments Unknown (test code = 786-4) 34 g/dL Unknown 31-36 F Ordering Physician UnknownLaboratory Qdyckyz7772-51-37 08:50:00Identifier 76967- 6 Result Time 2019-02-27 08:50:00Unknown Test Item Value Reference Range Comments Unknown (test code = 785-6) 33 pg Unknown 27-31 F Ordering Physician UnknownLaboratory Lovxrgd2923-44-27 08:50:00Identifier [id number]- 6 Result Time 2019-02-27 08:50:00Unknown Test Item Value Reference Range Comments Unknown (test code = 718-7) 11.4 g/dL Unknown 14.0-18.0 F Ordering Physician UnknownLaboratory Qrzuvdo4802-74-63 08:50:00Identifier [id number]- 6 Result Time 2019-02-27 08:50:00Unknown Test Item Value Reference Range Comments Unknown (test code = 4544-3) 33 % Unknown 42-52 F Ordering Physician UnknownLaboratory Mibsbpw5734-81-67 05:21:00Identifier 15195- 6 Result Time 2019-02-26 05:21:00Unknown Test Item Value Reference Range Comments Unknown (test code = 2885-2) 6.1 g/dL Unknown 6.4-8.9 F Ordering Physician UnknownLaboratory Hgwhqgg4738-02-52 05:21:00Identifier [id number]- 6 Result Time 2019-02-26 05:21:00Unknown Test Item Value Reference Range Comments Unknown (test code = 1975-2) 0.90 mg/dL Unknown 0.2-1.0 F Ordering Physician UnknownLaboratory Cefsqhy0031-73-63 05:21:00Identifier [id number]- 6 Result Time 2019-02-26 05:21:00Unknown Test Item Value Reference Range Comments Unknown (test code = 2777-1) 3.7 mg/dL Unknown 2.5-5.0 F Ordering Physician UnknownLaboratory Omovhpi9216-30-98 05:21:00Identifier 22573- 6 Result Time 2019-02-26 05:21:00Unknown Test Item Value Reference Range Comments Unknown (test code = 1971-1) 0.6 mg/dL Unknown 0.3-1.0 F Ordering Physician UnknownLaboratory Zwamcii6274-45-46 05:21:00Identifier 27989- 6 Result Time 2019-02-26 05:21:00Unknown Test Item Value Reference Range Comments Unknown (test code = NullTestCode) 2.5 g/dL Unknown 2-4 F Ordering Physician UnknownLaboratory Alsinxo7872-53-73 05:21:00Identifier [id number]- 6 Result Time 2019-02-26 05:21:00Unknown Test Item Value Reference Range Comments Unknown (test code = 1968-7) 0.30 mg/dL Unknown 0.03-0.18 F Ordering Physician UnknownLaboratory Gfbwzea9631-69-92 05:21:00Identifier [id number]- 6 Result Time 2019-02-26 05:21:00Unknown Test Item Value Reference Range Comments Unknown (test code = 1920-8) 112 U/L Unknown 13-39 F Ordering Physician UnknownLaboratory Wfdppku4291-78-12 05:21:00Identifier [id number]- 6 Result Time 2019-02-26 05:21:00Unknown Test Item Value Reference Range Comments Unknown (test code = 6768-6) 342 U/L Unknown 34-104 F Ordering Physician UnknownLaboratory Crafasn4856-35-10 05:21:00Identifier [id number]- 6 Result Time 2019-02-26 05:21:00Unknown Test Item Value Reference Range Comments Unknown (test code = 1759-0) 1.4 Unknown 1-3 F Ordering Physician UnknownLaboratory Wigtdbj3588-06-01 05:21:00Identifier 55137- 6 Result Time 2019-02-26 05:21:00Unknown Test Item Value Reference Range Comments Unknown (test code = 03826-6) 3.6 g/dL Unknown 3.2-5.2 F Ordering Physician UnknownLaboratory Cfrpxpv7407-64-80 05:21:00Identifier 69452- 6 Result Time 2019-02-26 05:21:00Unknown Test Item Value Reference Range Comments Unknown (test code = 1742-6) 133 U/L Unknown 7-52 F Ordering Physician UnknownLaboratory Offrohk8559-09-20 05:21:00Identifier 79310- 6 Result Time 2019-02-26 05:21:00Unknown Test Item Value Reference Range Comments Unknown (test code = 77170-9) 0.1 Unknown Unknown F Ordering Physician UnknownLaboratory Aauqjqy9844-51-17 05:21:00Identifier [id number]- 6 Result Time 2019-02-26 05:21:00Unknown Test Item Value Reference Range Comments Unknown (test code = 771-6) 0.0 10^3/ul Unknown Unknown F Ordering Physician UnknownLaboratory Cwffgem5328-45-28 05:21:00Identifier [id number]- 6 Result Time 2019-02-26 05:21:00Unknown Test Item Value Reference Range Comments Unknown (test code = 770-8) 62.9 % Unknown Unknown F Ordering Physician UnknownLaboratory Dzuhyje7606-52-58 05:21:00Identifier 38258- 6 Result Time 2019-02-26 05:21:00Unknown Test Item Value Reference Range Comments Unknown (test code = 5905-5) 16.4 % Unknown Unknown F Ordering Physician UnknownLaboratory Wsiemme7329-21-98 05:21:00Identifier 67009- 6 Result Time 2019-02-26 05:21:00Unknown Test Item Value Reference Range Comments Unknown (test code = 736-9) 16.5 % Unknown Unknown F Ordering Physician UnknownLaboratory Eeedutm3552-54-25 05:21:00Identifier 08871- 6 Result Time 2019-02-26 05:21:00Unknown Test Item Value Reference Range Comments Unknown (test code = 713-8) 3.4 % Unknown Unknown F Ordering Physician UnknownLaboratory Yukseqv2169-50-00 05:21:00Identifier 71904- 6 Result Time 2019-02-26 05:21:00Unknown Test Item Value Reference Range Comments Unknown (test code = 706-2) 0.8 % Unknown Unknown F Ordering Physician UnknownLaboratory Rhodroa2745-27-12 05:21:00Identifier [id number]- 6 Result Time 2019-02-26 05:21:00Unknown Test Item Value Reference Range Comments Unknown (test code = ODF0248) 2.6 10^3/ul Unknown 1.5-7.7 F Ordering Physician UnknownLaboratory Wkguhex6044-80-12 05:21:00Identifier [id number]- 6 Result Time 2019-02-26 05:21:00Unknown Test Item Value Reference Range Comments Unknown (test code = 742-7) 0.7 10^3/ul Unknown 0-0.8 F Ordering Physician UnknownLaboratory Frmtpvu2032-88-04 05:21:00Identifier 38897- 6 Result Time 2019-02-26 05:21:00Unknown Test Item Value Reference Range Comments Unknown (test code = 731-0) 0.7 10^3/ul Unknown 1.0-4.8 F Ordering Physician UnknownLaboratory Ydvdieh7091-71-64 05:21:00Identifier 02453- 6 Result Time 2019-02-26 05:21:00Unknown Test Item Value Reference Range Comments Unknown (test code = 711-2) 0.1 10^3/ul Unknown 0-0.6 F Ordering Physician UnknownLaboratory Kekyogh7791-82-52 05:21:00Identifier [id number]- 6 Result Time 2019-02-26 05:21:00Unknown Test Item Value Reference Range Comments Unknown (test code = 704-7) 0.0 10^3/ul Unknown 0-0.2 F Ordering Physician UnknownLaboratory Wmpytmv7287-58-53 18:33:00Identifier [id number]- 6 Result Time 2019-02-23 18:33:00Unknown Test Item Value Reference Range Comments Unknown (test code = 5643-2) 236 mg/dL Unknown 0-10 F Ordering Physician UnknownLaboratory Oofhits9956-41-06 18:33:00Identifier 74607- 6 Result Time 2019-02-23 18:33:00Unknown Test Item Value Reference Range Comments Unknown (test code = 06918-3) 0.89 Unknown 0.82-1.09 F Ordering Physician UnknownLaboratory Nahdrsa0107-81-03 18:33:00Identifier [id number]- 6 Result Time 2019-02-23 18:33:00Unknown Test Item Value Reference Range Comments Unknown (test code = 44279-7) 31.2 seconds Unknown 26.0-38.0 F Ordering Physician UnknownLaboratory Zbvmvnf3099-43-52 18:33:00Identifier 60439- 6 Result Time 2019-02-23 18:33:00Unknown Test Item Value Reference Range Comments Unknown (test code = 2524-7) 1.6 mmol/L Unknown 0.5-2.0 F Ordering Physician UnknownLaboratory Uxzrcuy6594-92-45 18:32:00Identifier 07542- 6 Result Time 2019-02-23 18:32:00Unknown Test Item Value Reference Range Comments Unknown (test code = 09101-8) 0.01 s/c Unknown Unknown F Ordering Physician Unknown
--- NOTE | 2019-06-26 15:03 | ED ---
Psychiatric Complaint - HPI Summary HPI Summary: Pt is a 58 year old male with a significant medical history of alcohol dependance and alcohol induced hepatitis presents to the emergency department today due to suicidal comments he made during his appointment with Dr. Foss. After making these comments Dr. Foss was concerned with Mr. Winchester's mental state and sent him here for mental health evaluation. At his appointment Dr. Foss mentioned taking away his drivers license to which the patient stated "If I cant drive I might as well kill myself". He was brought here without a 941 or 945 order. Pt states he has been feeling depressed, fatigued, and weak for the last 6 months, and in the last 2 days he has felt much worse. He complains of confusion, unsteady gait and numbness in his hands which began 2 days ago. Denies recreational drug use, smoking, and states he has only had 2 beers a day every day for the last few months. He feels he does not have a problem with the amount of his alcohol consumption. He admits to having issues with sleep as well as a decrease in appetite and social withdrawal. Due to Dr. Foss's concerns he will receive a mental health evaluation although during his time in the emergency department he denies all suicidal ideation, homicidal ideation and does not have a plan. He states he does see a counselor for mental health issues once a week. He denies incontinence, recent falls or trauma, seizures, fever, chest pain, abdominal pain, pain with urination. - History Of Current Complaint Chief Complaint: EDPsychosocial Time Seen by Provider: 06/26/19 14:42 Hx Obtained From: Patient Onset/Duration: Gradual Onset Severity Initially: Mild Severity Currently: None Character: Depressed Alleviating Factor(s): Counseling Associated Signs And Symptoms: Positive: Confused, Sleep Disturbance, Appetite Change, Social Withdrawal, Social Isolation Has Suicidal: Reports: Demonstrates Gesture - At his GI appointment this afternoon. Denies: Thoughts, With A Plan Has Homicidal: Denies: Thoughts, With A Plan, Demonstrates Gesture, Has Prior Attempt(s) - Risk Factor(s) Completed Suicide Risk Factors: Male, White [place] - Allergies/Home Medications Allergies/Adverse Reactions: Allergies Allergy/AdvReac Type Severity Reaction Status Date / Time amoxicillin Allergy GI Upset Verified 06/02/19 18:52 PMH/Surg Hx/FS Hx/Imm Hx Endocrine/Hematology History: Denies: Hx Diabetes, Hx Thyroid Disease Cardiovascular History: Reports: Hx Hypertension - DOES TAKE MEDICATIONS Denies: Hx Pacemaker/ICD Respiratory History: Denies: Hx Asthma, Hx Chronic Obstructive Pulmonary Disease (COPD) GI History: Denies: Hx Ulcer History: Denies: Hx Renal Disease Sensory History: Reports: Hx Contacts or Glasses Denies: Hx Hearing Aid Opthamlomology History: Reports: Hx Contacts or Glasses Psychiatric History: Reports: Hx Anxiety, Hx Depression, Hx Inpatient Treatment , Hx Community Mental Health Tx, Hx Substance Abuse - Hx ETOH, Other Psychiatric Issues/Disorders - 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 Denies: Hx Attention Deficit Hyperactivity Disorder, Hx Eating Disorder, Hx Panic Disorder, Hx Post Traumatic Stress Disorder, Hx Schizophrenia, Hx Bipolar Disorder, Hx Suicide Attempt, Hx of Violent Episodes Against Others - Surgical History Surgery Procedure, Year, and Place: EUF SCAN OF PANCREAS AND LIVER (LAP); - Immunization History Date of Tetanus Vaccine: UTD Date of Influenza Vaccine: NO Infectious Disease History: No Infectious Disease History: Denies: Hx Hepatitis, Hx Human Immunodeficiency Virus (HIV), Traveled Outside the [place] in Last 30 Days - Family History Known Family History: Positive: Hypertension - Social History Alcohol Use: Daily Alcohol Amount: Varies- "1-4 beers" Hx Substance Use: No Substance Use Type: Reports: None Hx Tobacco Use: No Smoking Status (MU): Never Smoked Tobacco Review of Systems Constitutional: Negative Eyes: Negative Cardiovascular: Negative Respiratory: Negative Gastrointestinal: Negative Musculoskeletal: Negative Skin: Negative Positive: Weakness, Paresthesia - in hands Positive: Anxious All Other Systems Reviewed And Are Negative: Yes Physical Exam Triage Information Reviewed: Yes Vital Signs On Initial Exam: Initial Vitals Temp Pulse Resp BP Pulse Ox 98.2 F 72 18 132/73 92 06/26/19 14:31 06/26/19 14:31 06/26/19 14:31 06/26/19 14:31 06/26/19 14:31 Vital Signs Reviewed: Yes Appearance: Positive: Well-Appearing, No Pain Distress, Well-Nourished Skin: Positive: Warm, Skin Color Reflects Adequate Perfusion Head/Face: Positive: Normal Head/Face Inspection Eyes: Positive: EOMI, GERMAN ENT: Positive: Hearing grossly normal Respiratory/Lung Sounds: Positive: Clear to Auscultation, Breath Sounds Present Cardiovascular: Positive: RRR, S1, S2 Abdomen Description: Positive: Nontender, Soft. Negative: Distended, Guarding Bowel Sounds: Positive: Present Neurological: Positive: Alert, Oriented to Person Place, Time, Finger to Nose, Speech Normal. Negative: Slurred Speech, [place], Facial Symmetry, Pronator Drift Present Psychiatric: Positive: Affect/Mood Appropriate, Other - Pt makes good eye contact during interview. Pt seems to have mild difficulty choosing his words. AVPU Assessment: Alert Procedures - Sedation Patient Received Moderate/Deep Sedation with Procedure: No Diagnostics - Vital Signs Vital Signs Temp Pulse Resp BP Pulse Ox 06/26/19 14:31 98.2 F 72 18 132/73 92 - Laboratory Result Diagrams: 06/26/19 15:16 06/27/19 05:14 Lab Statement: Any lab studies that have been ordered have been reviewed, and results considered in the medical decision making process. Course/Dx - Course Course Of Treatment: Pt was evaluated in the emergency room due to suicidal comments he made during an appointment with Dr. Foss this afternoon. Pt was seen promptly after arrival to the ED and evaluated. His vital signs were stable and he was afebrile. He denied SI and HI while in the ED but due to Dr. Swenson concerns, he will receive a MHE. Labratory tests were ordered including a urine toxicology screen, blood alcohol level and ammonia level. He was changed into scrubs and his belongings were collected. He was placed under q15 min observation while in the ED. Labs returned showing no evidence of infection with no leukocytosis or neurophilic shift. H/H is 12.6/37, which is low but his baseline. platelet count is 56 which has decreased from his prior visit one month ago on 06/01/19. There are no electrolyte abnormalities. AST is 145 / ALT is 62. Prior AST in 06/01/19 was 61. The change in his labs compared to his prior visit on 06/01/19 indicate alcoholic hepatitis, for which he was seeing his GI doctor for today. His alk phos was elevated at 208, but this is a chronic issue. Ammonia level is 69, but this is a chronic finding and the patient is currently asymptomatic. Urinalysis was negative for UTI. Toxicology screening showed positive for barbituites and cannabinoids. Serum alcohol was 332. Pt is clinicaly sober at this time, but needs a blood alcohol levels <100 prior to mental health evaluation. He will be observed for 8 hours prior to evaluation. He is otherwise medicaly clear. He will be monitored for signs of alcohol withdrawl. At approximately 2143 patient started complaining of symptoms of alcohol withdrawl. He was given 1 mg of Ativan by mouth. He was later given 2mg more of ativan as well as thiamine, magnesium, folate as he started developing worsening call withdrawal. 1 mg of Ativan every one hour was ordered when necessary for alcohol withdrawal symptoms. A second alcohol level was done which came back at 42. He is clinically and legally sober and is cleared for mental health evaluation by psychiatric services. - Differential Dx/Clinical Impression Differential Diagnosis/HQI/PQRI: Positive: Acute Psychosis, Alcohol Intoxication , Anxiety, Depression, Suicidal Ideation Provider Diagnosis: Suicidal ideation, Alcohol withdrawal Discharge ED - Sign-Out/Discharge Documenting (check all that apply): Sign-Out Patient Signing out patient TO: Tala Us Receiving patient FROM: Federico Amanda - Discharge Plan Condition: Stable Disposition: ADMITTED TO [facility] - Billing Disposition and Condition Condition: STABLE Disposition: Admitted to [facility] - Attestation Statements Provider Attestation: I agree w [place] documentation above, briefly 58 y/o male BIB EMS after expressing SI at Dr. Foss's office. Dr. Foss called me to express his concerns over patients ability to care for self and alcohol use. Although not sent on , I expressed my concerns w WILL Caballero over patient's safety in conjunction w Dr. Foss's observations. Will get labs, pysch consult. Wesley Zamarripa MD
[2019-06-26 15:29] LABS: ABS Basophils 0.1 10^3/ul (0-0.2); ABS Eosinophils 0.1 10^3/ul (0-0.6); ABS Lymphocytes 0.7 10^3/ul (1.0-4.8); ABS Monocytes 0.5 10^3/ul (0-0.8); ABS Neutrophils 5.3 10^3/ul (1.5-7.7); Eosinophil % 1.3 %; Hematocrit 37 % (42-52); Hemoglobin 12.6 g/dL (14.0-18.0); Lymphocyte % 11.1 %; Mean Corpuscular HGB Conc 34 g/dL (31-36); Mean Corpuscular Hemoglobin 33 pg (27-31); Mean Corpuscular Volume 95 fL (80-94); Mean Platelet Volume 7.7 fL (7.4-10.4); Platelet Count 56 10^3/uL (150-450); Red Blood Count 3.87 10^6 /uL (4.18-5.48); Red Cell Distribution Width 15 % (10-15); White Blood Count 6.8 10^3/uL (3.5-10.8)
[2019-06-26 15:57] LABS: ALT 62 U/L (7-52); AST 145 U/L (13-39); Albumin 3.9 g/dL (3.2-5.2); Albumin/Globulin Ratio 1.6 (1-3); Alkaline Phosphatase 208 U/L (34-104); Anion Gap 10 mmol/L (2-11); BUN/Creatinine Ratio 16.9 (8-20); Blood Urea Nitrogen 10 mg/dL (6-24); CO2 Carbon Dioxide 29 mmol/L (22-32); Calcium 8.5 mg/dL (8.6-10.3); Chloride 100 mmol/L (101-111); EGFR African American 170.7 (>60); EGFR Non-African American 141.1 (>60); Globulin 2.5 g/dL (2-4); Glucose 97 mg/dL (70-100); Potassium 3.7 mmol/L (3.5-5.0); Sodium 139 mmol/L (135-145); Total Protein 6.4 g/dL (6.4-8.9)
[2019-06-26 16:00] LABS: Alcohol 332 mg/dL (<10); Salicylate < 2.50 mg/dL (<30)
[2019-06-26 16:02] LABS: TSH (Thyroid Stimulating Horm) 0.91 mcIU/mL (0.34-5.60)
[2019-06-26 16:03] LABS: Urine Appearance Clear; Urine Bilirubin Negative (Negative); Urine Blood Negative (Negative); Urine Color Amber; Urine Glucose Negative (Negative); Urine Ketones Negative (Negative); Urine Nitrite Negative (Negative); Urine Protein 2+(100 mg/dL) (Negative); Urine Specific Gravity 1.015 (1.010-1.030); Urine Urobilinogen Negative (Negative)
[2019-06-26 16:25] LABS: Urine Benzodiazepine Screen None Detected (None Detect); Urine Opiates Screen None Detected (None Detect)
[2019-06-26 16:32] LABS: Acetaminophen < 15 mcg/mL
[2019-06-26] MEDS ORDERED: LORazepam TAB(*) 1 MG PO ONE (21:38)
[2019-06-26] MEDS ORDERED: NS 0.9% 1000 ML** 1,000 ML IV ONE (23:59)
[2019-06-26] MEDS ORDERED: Thiamine INJ* 100 MG, Folic Acid IV* 1 MG, Multiple Vitamin IV ADULT* 10 ML in NS 0.9% ... IV ONE (23:59)
[2019-06-27] MEDS ORDERED: Lorazepam PYXIS KEY PRN ×3 (00:01→06:17)
[2019-06-27] MEDS ORDERED: LORazepam INJ* 2 MG/ML 1 ML VIAL IV PUSH ONE (00:01)
[2019-06-27] MEDS ORDERED: Lorazepam PYXIS KEY ONE (00:13)
[2019-06-27] MEDS: LORazepam INJ* 2 MG/ML 1 ML VIAL IV PUSH PRN ×2 (01:58→05:59)
--- NOTE | 2019-06-27 02:15 | ED ---
Progress - Progress Note Progress Note: This pt is a signout from WILL Amanda to Dr. Us at 0230 06/27/19 shift change pending MHE. Pt will be admitted. Course/Dx - Course Course Of Treatment: This pt is a signout from WILL Amanda to Dr. Us at 0230 06/27/19 shift change pending MHE. Mental health evaluation unable to be performed at this time. Patient continued having tremors. Agitation. Withdrawal symptoms. Ativan used liberally for symptomatic relief. Patient referred to hospitalist for alcohol withdrawal. Mental health evaluation will be attempted when patient is less symptomatic. - Diagnoses Provider Diagnoses: Suicidal ideation, Alcohol withdrawal Discharge ED - Sign-Out/Discharge Documenting (check all that apply): Patient Departure - admit, Receiving Sign- Out Receiving patient FROM: Federico Amanda - This pt is a signout from WILL Amanda to Dr. Us [place] 02306/27/19 shift change pending MHE. - Discharge Plan Condition: Stable Disposition: ADMITTED TO [facility] Referrals: Luc Hartley MD [Primary Care Provider] - - Billing Disposition and Condition Condition: STABLE Disposition: Admitted to [facility] - Attestation Statements Document Initiated by Scribe: Yes Documenting Scribe: Scott Cody Provider For Whom Scribe is Documenting (Include Credential): Dr. Tala Us MD Scribe Attestation: Scott Sewell scribed for Dr. Tala Us MD on 06/27/19 at 3751. Scribe Documentation Reviewed: Yes Provider Attestation: The documentation as recorded by the Scott gallagher accurately reflects the service I personally performed and the decisions made by me, Dr. Tala Us MD Status of Scribe Document: Viewed
[2019-06-27 05:27] LABS: INR 0.9 (0.82-1.09)
[2019-06-27 05:39] LABS: Albumin 3.9 g/dL (3.2-5.2); Albumin/Globulin Ratio 1.5 (1-3); BUN/Creatinine Ratio 15.7 (8-20); Calcium 8.5 mg/dL (8.6-10.3); EGFR Non-African American 166.9 (>60); Globulin 2.6 g/dL (2-4); Potassium 3.1 mmol/L (3.5-5.0); Total Bilirubin 1.4 mg/dL (0.2-1.0); Total Protein 6.5 g/dL (6.4-8.9)
[2019-06-27] MEDS ORDERED: Propranolol LA CAP* 60 MG PO ONE (06:30)
--- NOTE | 2019-06-27 07:14 | HP ---
History of Present Illness - History of Present Illness Reason for Visit: suicidal ideations History of Present Illness: 58 year old male with hx of alcoholism was brought in to the ED today from clinic after making suicidal comments. He was sent for mental health evaluation. His alcohol level was high in the ED. In order for mental health to evaluate patient, he must be sober. He then developed withdrawals symptoms in the ED. He denied suicidal ideations but did admit to feeling overwhelmed with a depressed mood. He has been drinking daily and does not know exactly the amount of alcohol he drinks. - Past Medical History Cardiac: HTN Psych: Addictions Review of Systems - Measurements Intake and Output: Intake and Output Last 24 Hours 06/25/19 06/26/19 06/27/19 06/28/19 06:59 06:59 06:59 06:59 Intake Total 990 Balance 990 Weight 145 lb Intake: IV Fluids 990 - Review of Systems Constitutional Symptoms: Positive: Weight Loss Negative: Weight Gain, Weakness, Fatigue, Fever, Night Sweats, Unexplained Falls, Other Dermatology: Positive: Skin Lesions HEENT: Negative: Normal, Change in Hearing, Vertigo, Dental Problems, Tinnitus, Sinus Problem, Other Eyes: Negative: Normal, Change in Vision, Double Vision, Eye Pain, Glaucoma, Cataract, Contacts or Glasses, Other Thyroid: Negative: Normal, Goiter, Thyroid Nodule, Cold Intolerance, Heat Intolerance , Sweatiness, Tremor, Frequent Defecation, Constipation, Palpitations, Primary Hypothyroidism, Primary Hyperthyroidism, Weight Loss, Weight Gain, Change in Skin/Hair, Change in Menstruation, Radiation Exposure, Other Pulmonary: Negative: Normal, Cough, Sputum, Hemoptysis, Wheezing, Respiratory Distress, Shortness of Breath, COPD, Asthma, Exercise Intolerance, Home Oxygen, Other Cardiology: Negative: Normal, Chest Pain, Shortness of Breath, Palpitations, Swelling of Ankles, Peripheral Vascular Dis, Edema, Faintness, Syncope, Claudication, Proximal NocturnalDyspnea, Orthopnoea, Other Gastroenterology: Negative: Normal, Abdominal Pain, Nausea, Vomiting, Anorexia, Indigestion, Difficulty Swallowing, Heartburn, Constipation, Diarrhea, Blood in Stools, Change in Bowel Habits, Haematemesis, Melena, Other Musculoskeletal: Negative: Joint Pain, Joint Stiffness, Arthritis, Osteoporosis, Low Back Pain , Sciatica, Joint Deformities, Kyphoscoliosis, Other Neurology: Negative: Normal, Headache, Migraines, Change in Vision, Diplopia, Dizziness , Change in Balancing, Change in Coordination, Change in Memory, Change in Speech, Change in Sphincter Function, Change in Walking, Numbness\Paresthesiae, Unexplained Weakness, Hx of Stroke\TIA, Hx of Seizures, Other Psychiatry: Positive: Depression, Anxiety, Depressed Mood Negative: Normal, Anhedonia, Sexual Dysfunction, Weight Change, Guilt Feelings, Tearfulness, Unusual Fatigue, Unusual Anxiety, Suicidal Ideation, Hypomania, Eating Disorders, Other Objective Active Medications: Lorazepam (Ativan Inj*) 0 - 3 mg IV PUSH .PER [place] PROTOCOL MICHAEL; Protocol Miscellaneous (Ativan Pyxis Carranza) 1 ea N/A .PYXIS CARRANZA PRN PRN Reason: PER PROTOCOL Vital Signs - 8 hr 06/26/19 06/27/19 06/27/19 23:23 00:00 00:01 Temperature Pulse Rate 78 83 79 Respiratory 19 20 23 Rate Blood Pressure 165/77 186/90 (mmHg) O2 Sat by Pulse 92 97 97 Oximetry 06/27/19 06/27/19 06/27/19 00:15 00:16 00:23 Temperature 97.7 F Pulse Rate 84 75 Respiratory 19 14 16 Rate Blood Pressure 129/99 (mmHg) O2 Sat by Pulse 97 94 Oximetry 06/27/19 06/27/19 06/27/19 00:54 01:00 01:23 Temperature Pulse Rate 85 79 86 Respiratory 17 18 16 Rate Blood Pressure 151/109 140/86 (mmHg) O2 Sat by Pulse 95 97 93 Oximetry 06/27/19 06/27/19 06/27/19 01:52 01:58 02:00 Temperature Pulse Rate 79 81 Respiratory 29 16 22 Rate Blood Pressure 157/91 (mmHg) O2 Sat by Pulse 92 92 Oximetry 06/27/19 06/27/19 06/27/19 02:22 02:53 03:00 Temperature Pulse Rate 101 82 76 Respiratory 18 24 19 Rate Blood Pressure 162/109 147/96 (mmHg) O2 Sat by Pulse 93 95 93 Oximetry 06/27/19 06/27/19 06/27/19 03:23 03:52 04:00 Temperature Pulse Rate 80 78 80 Respiratory 25 22 21 Rate Blood Pressure 147/101 179/124 (mmHg) O2 Sat by Pulse 93 94 93 Oximetry 06/27/19 06/27/19 06/27/19 04:23 05:00 05:22 Temperature Pulse Rate 78 101 74 Respiratory 18 18 Rate Blood Pressure 166/87 173/100 (mmHg) O2 Sat by Pulse 92 93 94 Oximetry 06/27/19 06/27/19 06/27/19 05:53 05:59 06:00 Temperature Pulse Rate 79 81 Respiratory 16 23 Rate Blood Pressure 191/94 (mmHg) O2 Sat by Pulse 94 94 Oximetry 06/27/19 06:23 Temperature Pulse Rate 75 Respiratory 24 Rate Blood Pressure 169/89 (mmHg) O2 Sat by Pulse 93 Oximetry Appearance: tremulous Ears/Nose/Mouth/Throat: NL Teeth, Lips, Gums, - - dry mucous membrane Neck: NL Appearance and Movements; NL JVP Respiratory: Symmetrical Chest Expansion and Respiratory Effort, Clear to Auscultation Cardiovascular: NL Sounds; No Murmurs; No JVD Abdominal: NL Sounds; No Tenderness; No Distention Lymphatic: No Cervical Adenopathy Extremities: No Edema Skin: No Rash or Ulcers Neurological: - - alert, oriented to self, not oriented to place or situtation Result Diagrams: 06/26/19 15:16 06/27/19 05:14 Assess/Plan/Problems-Billing Assessment: - Patient Problems (1) Alcohol abuse Current Visit: No Status: Acute Code(s): F10.10 - ALCOHOL ABUSE, UNCOMPLICATED SNOMED Code(s): 74120078 Comment: - actively drinking - Will need social research assistant; - [facility] protocol -Psych to come for mental health evaluation (2) DVT prophylaxis Current Visit: No Status: Acute Code(s): FTM8629 - SNOMED Code(s): 795330043 Comment: - SCDs only (3) Essential tremor Current Visit: No Status: Acute Code(s): G25.0 - ESSENTIAL TREMOR SNOMED Code(s): 824280904 Comment: - Continue Ativan and Primidone and propranolol (4) Full code status Current Visit: No Status: Acute Code(s): Z78.9 - OTHER SPECIFIED HEALTH STATUS SNOMED Code(s): 529583975 (5) HTN (hypertension) Current Visit: No Status: Acute Code(s): I10 - ESSENTIAL (PRIMARY) HYPERTENSION SNOMED Code(s): 21428037 Comment: Stable - continue amlodipine and propranolol (6) Increased ammonia level Current Visit: No Status: Acute Code(s): R79.89 - OTHER SPECIFIED ABNORMAL FINDINGS OF BLOOD CHEMISTRY SNOMED Code(s): 901052411 Comment: xifatan, lactulose TID
[2019-06-27] MEDS: LORazepam IV 0-3 mg for WAM protocol IV PUSH SCH ×7 (07:22→20:20)
[2019-06-27 08:12] LABS: Magnesium 1.4 mg/dL (1.9-2.7)
--- NOTE | 2019-06-27 09:51 | CONSULT ---
Consult Consult: Reason for consult: Psychiatric evaluation CC " I drink 3-4 beers a day " 58 year old male with a history of alcohol use disorder. The patient was brought to [facility] after he had a appointment with his gastroenterlogist who he said called a ambulance. His alcohol level was 332 on admission and toxicology screen was + for barbiturates and cannabis. Patient is unable to recall the events leading up to his admission to the hospital. Patient reported the reasons for coming to the hospital were due to a stroke. Patient is a poor historian. Denied access to firearms and this was confirmed with significant other. He reported his sleep to be irregular. The patient denied homicidal ideation intent or plan. Per nursing staff the patient pointed to things on the ground that were not there. Patient reported that his significant other was in the other room, when she was not. This press writer came back into room and patient was unable to remember the encounter that took place. Patient has had severe weight loss. According to collateral sources he has not been eating and drinks 6-12 beers a day. According to Kaylie his significant other, he has been a danger to himself by drinking all day hallucinating, not eating and has fallen hit his head, soils himself and passes out and has repeated falls. He expressed that he was going to kill himself after his GI doctor restricted him from having a drivers license. PAST PSYCHIATRIC HISTORY: Prior Diagnosis : Alcohol use disorder, Unspecified sleep disorder History of past Psychiatric Hospitalizations: No prior psychiatric admission. History of past suicide/homicide attempts : Denied past suicide attempts or self injurious behaviors. No history of violence. Outpatient follow-up: None Medications: Past trials of medications include alprazolam, propranolol, oxycodone Guardianship: Kaylie is health care proxy FAMILY HISTORY: - Suicide: Father by suicide. - Mental illness: Father depression - Substance abuse: Denied substance abuse among family members. SUBSTANCE ABUSE HISTORY: - EtOH: Drinks 12 beers daily, history of blacking out and visual hallucinations. Alcohol level 332 on admission. - Tobacco: Denied - Cannabis: Denied however + UDS - Heroin: Denied - Cocaine: Denied - Substance abuse treatment: Past substance abuse treatment at [facility]. SOCIAL HISTORY: - Denied a history of childhood physical and or sexual abuse - Born in [place] and raised by both parents until his father when he was 11 years old . - Education: Completed college No history of special education. 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 Physical Exam: Please see Hand P Mental Status Exam on Admission APPEARANCE : 58 year old male who appears older than stated age. Patient appears disheveled. BEHAVIOR: Cooperative , calm EYE CONTACT: Fair MOVEMENTS: Bilateral upper extremity tremor SPEECH : Normal rate, rhythm, volume and tone. MOOD : "Good " AFFECT : Restricted THOUGHT PROCESS: Thought blocking, circumstantial THOUGHT CONTENT: preoccupation about job title PERCEPTION: visual hallucinations present SUICIDALITY Recent suicidal ideation HOMICIDALITY Denied homicidal ideation, intent or plan. Insight/judgment: Poor insight and judgment ORIENTATION: Oriented to self, not to location, and time. Diagnosis: Alcohol use disorder with current alcohol withdrawal, consider korsakoff syndrome Assessment: 58 year old male with alcohol use disorder and current signs of alcohol withdrawal. Plan # The patient does NOT require psychiatric inpatient admission at this time # Patient is not at his baseline, compared to prior evaluation. # Management of medical issues by primary team # Recommend nutritional support such as ensure with meals and monitoring food intake. # Continue Thiamine and give additional Thiamine 100mg IV push # Monitor EKG # Continue [facility] protocol for alcohol withdrawal # Recommend alcohol rehabilitation program, social work to assist with referrals # Patient showed interest in pursuing Alcoholics Anonymous # Declined medication treatment to reduce alcohol cravings or negative reinforcement # Patient unable to leave AMA # Continue constant observation # Obtained collateral history from Kaylie his health care proxy. #Patient lacks decision making capacity at this time The patient is unable to understand the meaning of the information communicated to him about his condition as well as the outcome and the consequences of accepting or refusing various treatment options. And the patient is unable to engage in a rational process of considering alternative treatment options. # Psychiatry will continue to follow the patient Sodium 134 mmol/L (135-145) L 06/27/19 05:14 Potassium 3.1 mmol/L (3.5-5.0) L 06/27/19 05:14 BUN 8 mg/dL (6-24) 06/27/19 05:14 Creatinine 0.51 mg/dL (0.67-1.17) L 06/27/19 05:14 Calcium 8.5 mg/dL (8.6-10.3) L 06/27/19 05:14 Magnesium 1.4 mg/dL (1.9-2.7) L 06/27/19 05:14 AST 153 U/L (13-39) H 06/27/19 05:14 ALT 64 U/L (7-52) H 06/27/19 05:14 Amlodipine Besylate (Norvasc Tab*) 10 mg PO DAILY [facility] Folic Acid (Folvite Tab*) 1 mg PO DAILY [facility] Labetalol HCl (Trandate Tab*) 100 mg PO BID [facility] Lorazepam (Ativan Inj*) 0 - 3 mg IV PUSH .PER [facility] PROTOCOL [facility]; Protocol Last Admin: 06/27/19 10:16 Dose: 2 mg Magnesium Oxide (Magox 400 Tab*) 400 mg PO BID [facility] Miscellaneous (Ativan Pyxis Carranza) 1 ea N/A .PYXIS CARRANZA PRN PRN Reason: PER PROTOCOL Oxycodone HCl (Roxycodone Tab*) 5 mg PO Q6HR PRN PRN Reason: severe pain Potassium Chloride (Klor Con Er Tab*) 10 meq PO BID [facility] Primidone (Mysoline Tab(*)) 250 mg PO TID [facility] Propranolol HCl (Inderal Tab*) 20 mg PO QID PRN PRN Reason: .ANXIETY Rifaximin (Xifaxan*) 550 mg PO BID [facility] Thiamine HCl (Vitamin B-1 Tab*) 100 mg PO DAILY [facility]
[2019-06-27] MEDS: Folic Acid TAB* 1 MG PO SCH (12:20)
[2019-06-27] MEDS: Labetalol TAB* 100 MG PO SCH ×2 (12:20→20:21)
[2019-06-27] MEDS: PRIMIDONE 250 MG PO SCH ×3 (12:20→20:21)
[2019-06-27] MEDS: RiFAXimin* 550 MG TAB PO SCH ×2 (12:20→20:21)
[2019-06-27] MEDS: amLODIPine TAB* 5 MG PO SCH (12:21)
[2019-06-27] MEDS: Thiamine TAB* 100 MG TAB PO SCH (12:21)
[2019-06-27] MEDS: Potassium Chlor TAB* 10 MEQ TAB.ER PO SCH ×2 (12:21→20:21)
[2019-06-27] MEDS: Magnesium Oxide TAB* 400 MG PO SCH ×2 (12:21→20:21)
[2019-06-27] MEDS ORDERED: Thiamine IV 100 MG/ML VIAL (only for Bannana Bags !) IVPB ONE (13:49)
[2019-06-27] MEDS ORDERED: Thiamine IV 100 MG in NS 0.9% 50 ML Q24H IV ONE (14:00)
[2019-06-27] MEDS: oxyCODONE TAB* 5 MG TAB PO PRN ×2 (14:37→20:56)
--- NOTE | 2019-06-27 15:03 | PN ---
Subjective Date of Service: 06/27/19 Interval History: Patient admitted overnight with alcohol withdrawal and suicidal comments. He does not know why he's here, mentions h/o stroke. He denies suicidal intent, says this was a "flippant" comment. Reports chest wall pain from previous rib fractures. (Had rib fractures in February) Family History: Unchanged from Admission Social History: Unchanged from Admission Past Medical History: Unchanged from Admission Objective Active Medications: Amlodipine Besylate (Norvasc Tab*) 10 mg PO DAILY [facility] Last Admin: 06/27/19 12:21 Dose: 10 mg Folic Acid (Folvite Tab*) 1 mg PO DAILY [facility] Last Admin: 06/27/19 12:20 Dose: 1 mg Labetalol HCl (Trandate Tab*) 100 mg PO BID [facility] Last Admin: 06/27/19 12:20 Dose: 100 mg Lorazepam (Ativan Inj*) 0 - 3 mg IV PUSH .PER [facility] PROTOCOL [facility]; Protocol Last Admin: 06/27/19 14:37 Dose: 1.5 mg Magnesium Oxide (Magox 400 Tab*) 400 mg PO BID [facility] Last Admin: 06/27/19 12:21 Dose: 400 mg Oxycodone HCl (Roxycodone Tab*) 5 mg PO Q6HR PRN PRN Reason: severe pain Last Admin: 06/27/19 14:37 Dose: 5 mg Potassium Chloride (Klor Con Er Tab*) 10 meq PO BID [facility] Last Admin: 06/27/19 12:21 Dose: 10 meq Primidone (Mysoline Tab(*)) 250 mg PO TID [facility] Last Admin: 06/27/19 14:37 Dose: 250 mg Propranolol HCl (Inderal Tab*) 20 mg PO QID PRN PRN Reason: .ANXIETY Rifaximin (Xifaxan*) 550 mg PO BID [facility] Last Admin: 06/27/19 12:20 Dose: 550 mg Thiamine HCl (Vitamin B-1 Tab*) 100 mg PO DAILY [facility] Last Admin: 06/27/19 12:21 Dose: 100 mg Vital Signs - 8 hr 06/27/19 06/27/19 06/27/19 08:42 09:52 10:16 Temperature 36.8 C Pulse Rate 75 Respiratory 20 20 20 Rate Blood Pressure 155/81 (mmHg) O2 Sat by Pulse 98 Oximetry 06/27/19 06/27/1906/27/19 11:16 12:14 12:33 Temperature 36.8 C Pulse Rate 73 Respiratory 20 20 20 Rate Blood Pressure 161/88 (mmHg) O2 Sat by Pulse 95 Oximetry 06/27/19 06/27/19 14:06 14:37 Temperature 36.4 C Pulse Rate 78 Respiratory 20 20 Rate Blood Pressure 151/83 (mmHg) O2 Sat by Pulse 99 Oximetry Oxygen Devices in Use Now: None Appearance: awake, alert Ears/Nose/Mouth/Throat: Clear Oropharnyx Neck: No Thyroid Enlargement, Masses Respiratory: Symmetrical Chest Expansion and Respiratory Effort, Clear to Auscultation Cardiovascular: NL Sounds; No Murmurs; No JVD, RRR Abdominal: NL Sounds; No Tenderness; No Distention, No Hepatosplenomegaly Neurological: - - not oriented to day, +asterixis Lines/Tubes/Other Access: Clean, Dry and Intact Peripheral IV Nutrition: Taking PO's Result Diagrams: 06/26/19 15:16 06/27/19 05:14 Assess/Plan/Problems-Billing Assessment: 58 year old man w/ HTN, h/o hemorrhagic CVA, here with alcohol withdrawal. - Patient Problems (1) Alcohol withdrawal delirium Current Visit: Yes Status: Acute Priority: High Code(s): F10.231 - ALCOHOL DEPENDENCE WITH WITHDRAWAL DELIRIUM SNOMED Code(s): 6968782 Comment: -Patient requiring IV ativan at this time. -Psychiatry note appreciated, does not have capacity to leave AMA. -On thiamine IV, possible Wernickes. (2) Hypokalemia Current Visit: No Status: Acute Priority: Medium Code(s): E87.6 - HYPOKALEMIA SNOMED Code(s): 27113492 Comment: - Replete PO, also replacing magnesium. - Will recheck in AM. (3) Suicidal thoughts Current Visit: Yes Status: Acute Priority: Medium Code(s): R45.851 - SUICIDAL IDEATIONS SNOMED Code(s): 9292233 Comment: -Appreciated Dr. Castañeda's consult. -Will continue 1:1 observation -Will need reassessment of capacity when completing [facility] protocol. Status and Disposition: inpatient Counseling and/or Coordination of Care Minutes: ex-ENRIQUE Horton is listed as contact, but does not endorse this role.
[2019-06-27] MEDS: Melatonin 3 MG TAB PO PRN (22:50)
[2019-06-28] MEDS: LORazepam IV 0-3 mg for WAM protocol IV PUSH SCH ×2 (03:45→21:40)
[2019-06-28] MEDS: oxyCODONE TAB* 5 MG TAB PO PRN ×2 (05:39→13:19)
[2019-06-28 05:40] LABS: BUN/Creatinine Ratio 13.7 (8-20); EGFR Non-African American 166.9 (>60); Magnesium 1.6 mg/dL (1.9-2.7); Potassium 2.8 mmol/L (3.5-5.0)
[2019-06-28] MEDS ORDERED: Magnesium Sulfate 2 GM IV* 2 GM/50 ML BAG IVPB ONE (06:50)
[2019-06-28] MEDS: NS 0.9% w/ 20 Meq KCL 1000 ML* 1,000 ML IV SCH (07:22)
--- NOTE | 2019-06-28 08:21 | CONSULT ---
Consult Consult: Reason for consult: Psychiatric evaluation CC " I drink 3-4 beers a day " 58 year old male with a history of alcohol use disorder showing signs of alcohol withdrawal. Today his significant other was at his bed side who discussed the ways that alcohol has effected his life. Patient continues to confabulate at times stating the reasons for being in the hospital are because of a stroke, and later corrects himself stating that alcohol abuse brought him to the hospital. Patient is interested in alcohol rehabilitation. According to Kaylie his significant other, he has been self destructive and has been unable to care for himself due to drinking. She has no concern that he will actively end his life and is concerned about his alcohol intake. She confirmed no suicide attempts or access to firearms. Patient said that there was no meaning behind making a suicidal statement and that he said it out of anger after having his drivers license taken away. Of note the patient noted that he has been feeling depressed lately and not being able to enjoy things he once did. He denied visual hallucinations. Mental Status Exam APPEARANCE : 58 year old male who appears older than stated age. Patient appears disheveled. BEHAVIOR: Cooperative , calm EYE CONTACT: Fair MOVEMENTS: Bilateral upper extremity tremor SPEECH : Normal rate, rhythm, volume and tone. MOOD : "okay" AFFECT : Restricted THOUGHT PROCESS: Thought blocking, circumstantial THOUGHT CONTENT: no delusions PERCEPTION: visual hallucinations were not evident at this encounter SUICIDALITY denied suicidal ideation, intent or plan HOMICIDALITY Denied homicidal ideation, intent or plan. Insight/judgment: Poor insight and judgment ORIENTATION: Oriented to self, not to location, and time. Diagnosis: Alcohol use disorder with current alcohol withdrawal, Wernicke- Korsakoff syndrome, substance induce depressive disorder Assessment: 58 year old male with alcohol use disorder and current signs of alcohol withdrawal. Plan # The patient does NOT require psychiatric inpatient admission at this time # Patient is not at his baseline, compared to prior evaluation. # Continue Medical Management per primary team # Recommend nutritional support such as ensure with meals and monitoring food intake. # Continue Thiamine and Vitamin B12 # CT brain wo contrast completed -indication for recent fall that involved hitting his head, report indicated no acute intracranial abnormality and stigmata of old left basal ganglia hematoma # EKG prolonged QTC 501 # Discontinue leaxapro and start Remeron 7.5mg qhs for depression, sleep and appetite. # Continue [facility] protocol for alcohol withdrawal # Inpatient alcohol rehabilitation program referral # Patient plans to engage in Alcoholics Anonymous program # Declined medication treatment to reduce alcohol cravings or negative reinforcement during alcohol use # Patient unable to leave AMA # Continue constant observation # Consider discontinuing opiate pain medication and if necessary replace with non opiate pain treatment. [place] [employer] showed oxycodone was last filled on 03/03/19. He was also on diazepam 5mg in December 2018 and Testosterone in September 2018. # Obtained collateral history from Kaylie his health care proxy. #Patient lacks decision making capacity at this time The patient is unable to understand the meaning of the information communicated to him about his condition as well as the outcome and the consequences of accepting or refusing various treatment options. And the patient is unable to engage in a rational process of considering alternative treatment options. # Psychiatry will continue to follow the patient Amlodipine Besylate (Norvasc Tab*) 10 mg PO DAILY [facility] Last Admin: 06/28/19 10:22 Dose: 10 mg Cyanocobalamin (Vitamin B12 Tab*) 1,000 mcg PO DAILY [facility] Last Admin: 06/28/19 10:22 Dose: 1,000 mcg Folic Acid (Folvite Tab*) 1 mg PO DAILY [facility] Last Admin: 06/28/19 10:22 Dose: 1 mg Potassium Chloride/Sodium Chloride (Ns 0.9% W/ 20 Meq Kcl 1000 Ml*) 1,000 mls @ 125 mls/hr IV PER RATE [facility] Last Admin: 06/28/19 07:22 Dose: 125 mls/hr Labetalol HCl (Trandate Tab*) 100 mg PO BID [facility] Last Admin: 06/28/19 10:43 Dose: 100 mg Lorazepam (Ativan Inj*) 0 - 3 mg IV PUSH .PER [facility] PROTOCOL [facility]; Protocol Last Admin: 06/28/19 03:45 Dose: 1.5 mg Magnesium Oxide (Magox 400 Tab*) 400 mg PO BID [facility] Last Admin: 06/28/19 10:22 Dose: 400 mg Melatonin (Melatonin) 3 mg PO DAILY PRN PRN Reason: SLEEP Last Admin: 06/27/19 22:50 Dose: 3 mg Mirtazapine (Remeron Tab*) 7.5 mg PO BEDTIME [facility] Miscellaneous (Ativan Pyxis Carranza) 1 ea N/A .PYXIS CARRANZA PRN PRN Reason: PER PROTOCOL Oxycodone HCl (Roxycodone Tab*) 5 mg PO Q6HR PRN PRN Reason: severe pain Last Admin: 06/28/19 05:39 Dose: 5 mg Potassium Chloride (Klor Con Er Tab*) 10 meq PO BID [facility] Last Admin: 06/28/19 10:23 Dose: 10 meq Primidone (Mysoline Tab(*)) 250 mg PO TID [facility] Last Admin: 06/28/19 10:22 Dose: 250 mg Propranolol HCl (Inderal Tab*) 20 mg PO QID PRN PRN Reason: .ANXIETY Rifaximin (Xifaxan*) 550 mg PO BID [facility] Last Admin: 06/28/19 10:23 Dose: 550 mg Thiamine HCl (Vitamin B-1 Tab*) 100 mg PO DAILY [facility] Last Admin: 06/28/19 10:22 Dose: 100 mg Sodium 130 mmol/L (135-145) L 06/28/19 05:08 Potassium 2.8 mmol/L (3.5-5.0) L 06/28/19 05:08 BUN 7 mg/dL (6-24) 06/28/19 05:08 Creatinine 0.51 mg/dL (0.67-1.17) L 06/28/19 05:08 Calcium 9.0 mg/dL (8.6-10.3) 06/28/19 05:08 Magnesium 1.6 mg/dL (1.9-2.7) L 06/28/19 05:08 AST 153 U/L (13-39) H 06/27/19 05:14 ALT 64 U/L (7-52) H 06/27/19 05:14
[2019-06-28] MEDS ORDERED: Escitalopram * 10 MG TAB PO SCH (09:00)
[2019-06-28] MEDS: Magnesium Oxide TAB* 400 MG PO SCH ×2 (10:22→21:28)
[2019-06-28] MEDS: Cyanocobalamin TAB* 500 MCG PO SCH (10:22)
[2019-06-28] MEDS: amLODIPine TAB* 5 MG PO SCH (10:22)
[2019-06-28] MEDS: PRIMIDONE 250 MG PO SCH ×3 (10:22→21:28)
[2019-06-28] MEDS: Folic Acid TAB* 1 MG PO SCH (10:22)
[2019-06-28] MEDS: Thiamine TAB* 100 MG TAB PO SCH (10:22)
[2019-06-28] MEDS: RiFAXimin* 550 MG TAB PO SCH ×2 (10:23→21:28)
[2019-06-28] MEDS: Potassium Chlor TAB* 10 MEQ TAB.ER PO SCH ×2 (10:23→21:29)
[2019-06-28] MEDS: Labetalol TAB* 100 MG PO SCH ×2 (10:43→21:28)
[2019-06-28 11:58] LABS: Urine Creatinine Concentration 63.71 mg/dL
--- NOTE | 2019-06-28 17:48 | PN ---
Subjective Date of Service: 06/28/19 Interval History: Patient says he feels better. He reports legs were weak earlier today. Eating OK. He cannot really account for why he is in hospital. He states he will not use alcohol when he leaves. He is not wanting to go to rehab after detox. Family History: Unchanged from Admission Social History: Unchanged from Admission Past Medical History: Unchanged from Admission Objective Active Medications: Amlodipine Besylate (Norvasc Tab*) 10 mg PO DAILY [facility] Last Admin: 06/28/19 10:22 Dose: 10 mg Cyanocobalamin (Vitamin B12 Tab*) 1,000 mcg PO DAILY [facility] Last Admin: 06/28/19 10:22 Dose: 1,000 mcg Folic Acid (Folvite Tab*) 1 mg PO DAILY [facility] Last Admin: 06/28/19 10:22 Dose: 1 mg Potassium Chloride/Sodium Chloride (Ns 0.9% W/ 20 Meq Kcl 1000 Ml*) 1,000 mls @ 125 mls/hr IV PER RATE [facility] Last Admin: 06/28/19 07:22 Dose: 125 mls/hr Labetalol HCl (Trandate Tab*) 100 mg PO BID [facility] Last Admin: 06/28/19 10:43 Dose: 100 mg Lorazepam (Ativan Inj*) 0 - 3 mg IV PUSH .PER [facility] PROTOCOL [facility]; Protocol Last Admin: 06/28/19 03:45 Dose: 1.5 mg Lorazepam (Ativan Tab(*)) 1 mg PO Q8H [facility] Stop: 06/29/19 10:01 Lorazepam (Ativan Tab(*)) 0.5 mg PO Q8H [facility] Stop: 06/30/19 02:31 Magnesium Oxide (Magox 400 Tab*) 400 mg PO BID [facility] Last Admin: 06/28/19 10:22 Dose: 400 mg Melatonin (Melatonin) 3 mg PO DAILY PRN PRN Reason: SLEEP Last Admin: 06/27/19 22:50 Dose: 3 mg Mirtazapine (Remeron Tab*) 7.5 mg PO BEDTIME [facility] Potassium Chloride (Klor Con Er Tab*) 10 meq PO BID [facility] Last Admin: 06/28/19 10:23 Dose: 10 meq Primidone (Mysoline Tab(*)) 250 mg PO TID [facility] Last Admin: 06/28/19 13:19 Dose: 250 mg Propranolol HCl (Inderal Tab*) 20 mg PO QID PRN PRN Reason: .ANXIETY Rifaximin (Xifaxan*) 550 mg PO BID [facility] Last Admin: 06/28/19 10:23 Dose: 550 mg Thiamine HCl (Vitamin B-1 Tab*) 100 mg PO DAILY [facility] Last Admin: 06/28/19 10:22 Dose: 100 mg Tramadol HCl (Ultram*) 50 mg PO Q6H PRN PRN Reason: PAIN - MODERATE Vital Signs - 8 hr 06/28/19 06/28/19 06/28/19 10:00 12:00 13:19 Temperature 37.0 C 36.8 C Pulse Rate 59 73 Respiratory 18 18 18 Rate Blood Pressure 144/77 124/71 (mmHg) O2 Sat by Pulse 100 100 Oximetry 06/28/19 06/28/19 06/28/19 14:00 15:22 16:00 Temperature 36.8 C 37.3 C Pulse Rate 60 60 Respiratory 18 18 18 Rate Blood Pressure 130/64 132/72 (mmHg) O2 Sat by Pulse 98 97 Oximetry Oxygen Devices in Use Now: None Appearance: awake, alert Neck: Trachea Midline Respiratory: Clear to Auscultation Cardiovascular: NL Sounds; No Murmurs; No JVD, RRR Abdominal: NL Sounds; No Tenderness; No Distention Lymphatic: No Cervical Adenopathy Neurological: - - oriented to place, person, thinks it's Wednesday Lines/Tubes/Other Access: Clean, Dry and Intact Peripheral IV Nutrition: Taking PO's - Nutrition: Malnutrition Diagnosis/Plan Malnutrition Assessment by Registered Dietitian: Malnutrition Assessment Clinical Characteristics Chronic,Severe Malnutrition Assessment: Inadequate Oral Intake - Noted pt w/ poor intake Criteria (receiving Remeron); consumed 25% L today on clear liquid diet - Anticipate pt meeting <75% nutrient needs x1 mo (severe) Unintentional Weight Loss - Noted pt w/ wt loss per records; current wt 125lb, prev wt on record 146lb (05/2019) - 13% loss x 1 mo (severe) Malnutrition Assessment: Nutritional Supplementals/Nourishments - Will Interventions trial Ensure Clear (240kcal, 8g prot/serv) w/ B , L, and D daily to optimize kcal/prot intake; will monitor acceptance GI Related - Recommend giving antiemetic PRN; will monitor GI s/sx for impact on intake and ability to advance diet Textures Modification - No noted evidence of difficulty chewing/swallowing per chart; will monitor tolerance to regular textures and recommend RIPSHEAR OPERATOR eval as indicated. Malnutrition Assessment: Goals 1) Recommend advancing diet to regular unrestricted as able 2) Pt will tolerate diet advnacement w/o exac/ development of GI s/sx and/or difficulty chewing /swallowing 3) Adequate po intake to support lean body mass and hydration status 4) Improve fluid/electrolyte balance w/ adequate po intake and repletion PRN 5) Maintain bowel regularity w/ adequate po intake w/o development of diarrhea/constipation Result Diagrams: 06/26/19 15:16 06/28/19 05:08 Additional Lab and Data: Laboratory Tests 06/28/19 05:08 Magnesium 1.6 L Assess/Plan/Problems-Billing Assessment: 58 year old man w/ HTN, h/o hemorrhagic CVA, here with alcohol withdrawal. - Patient Problems (1) Alcohol withdrawal delirium Current Visit: Yes Status: Acute Priority: High Code(s): F10.231 - ALCOHOL DEPENDENCE WITH WITHDRAWAL DELIRIUM SNOMED Code(s): 0246431 Comment: -Patient receiving less ativan now, will continue as seizure prophylaxis -Psychiatry note appreciated, does not have capacity to leave AMA. -On thiamine IV, possible Wernickes. -Will discuss capacity to refuse rehab with Dr Castañeda tomorrow. (2) Hypokalemia Current Visit: No Status: Acute Priority: Medium Code(s): E87.6 - HYPOKALEMIA SNOMED Code(s): 46249824 Comment: - Mg improved, K lower, will replete IV and PO, both potassium and magnesium. - Will recheck in AM. (3) Suicidal thoughts Current Visit: Yes Status: Acute Priority: Medium Code(s): R45.851 - SUICIDAL IDEATIONS SNOMED Code(s): 5290890 Comment: -Appreciated Dr. Castañeda's consult. -Will continue 1:1 observation -Will need reassessment of capacity when completing W[facility] protocol. -Stopped oxycodone, will try tramadol as milder alternative for pain relief. (4) DVT prophylaxis Current Visit: No Status: Acute Priority: Low Code(s): PRJ7422 - SNOMED Code(s): 897498368 Comment: - SCDs only Status and Disposition: Inpatient; Should plan for rehabilitation after detox
[2019-06-28] MEDS: LORazepam TAB(*) 1 MG PO SCH (18:10)
[2019-06-28] MEDS: Mirtazapine TAB* 15 MG PO SCH (21:26)
[2019-06-29] MEDS: LORazepam IV 0-3 mg for WAM protocol IV PUSH SCH ×8 (00:40→22:25)
[2019-06-29] MEDS: LORazepam TAB(*) 1 MG PO SCH ×2 (01:39→11:00)
[2019-06-29] MEDS: NS 0.9% w/ 20 Meq KCL 1000 ML* 1,000 ML IV SCH ×2 (01:53→18:08)
[2019-06-29] MEDS: traMADol TAB* 50 MG PO PRN ×2 (02:26→22:11)
[2019-06-29 05:55] LABS: ABS Eosinophils 0.1 10^3/ul (0-0.6); ABS Lymphocytes 0.6 10^3/ul (1.0-4.8); ABS Monocytes 0.7 10^3/ul (0-0.8); ABS Neutrophils 1.9 10^3/ul (1.5-7.7); Eosinophil % 2.3 %; Hematocrit 34 % (42-52); Lymphocyte % 19.3 %; Mean Corpuscular HGB Conc 35 g/dL (31-36); Mean Corpuscular Hemoglobin 33 pg (27-31); Mean Corpuscular Volume 95 fL (80-94); Mean Platelet Volume 8.7 fL (7.4-10.4); Platelet Count 56 10^3/uL (150-450); Red Blood Count 3.64 10^6 /uL (4.18-5.48); Red Cell Distribution Width 15 % (10-15); White Blood Count 3.2 10^3/uL (3.5-10.8)
[2019-06-29 05:59] LABS: Calcium 8.6 mg/dL (8.6-10.3); EGFR African American 206.7 (>60); EGFR Non-African American 170.8 (>60); Magnesium 1.6 mg/dL (1.9-2.7); Potassium 2.8 mmol/L (3.5-5.0)
[2019-06-29] MEDS ORDERED: Magnesium Sulfate IV* 3 GM in NS 0.9% 100 ML* 100 ML IVPB ONE (07:16)
--- NOTE | 2019-06-29 08:31 | CONSULT ---
Consult Consult: Reason for consult: Psychiatric evaluation CC " I am at a living center " 58 year old male with a history of severe alcohol use disorder and alcohol withdrawal and unable to complete activities of daily living. Patient was unable to list the reasons that alcohol impact him, although he did state he would if he did not stop drinking alcohol. Patient is not interested in inpatient alcohol rehabilitation. 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 His future plans are to work on a sailboat. Patient stated that he is able to take care of himself despite information from collateral sources. During encounter patient held water a foot from his face unable to determine that it was not close enough to drink it. Patient reported that Kaylie his health care proxy would help him at home however she reported that she is unable to do that because she works and takes care of her family. Patient reported that he slept well overnight. Mental Status Exam APPEARANCE : 58 year old male who appears older than stated age. Patient appears disheveled. BEHAVIOR: Cooperative , calm EYE CONTACT: Fair MOVEMENTS: Bilateral upper extremity tremor SPEECH : Normal rate, rhythm, volume and tone. MOOD : "Better" AFFECT : Restricted THOUGHT PROCESS: Thought blocking, circumstantial THOUGHT CONTENT: no delusions PERCEPTION: visual hallucinations were not evident at this encounter SUICIDALITY denied suicidal ideation, intent or plan HOMICIDALITY Denied homicidal ideation, intent or plan. Insight/judgment: Poor insight and judgment ORIENTATION: Oriented to self year and month, not to location. Diagnosis: Alcohol use disorder, severe with current alcohol withdrawal, Wernicke- Korsakoff syndrome, substance induce depressive disorder Assessment: 58 year old male with alcohol use disorder and current signs of alcohol withdrawal. Plan # The patient does NOT require psychiatric inpatient admission at this time # Patient is unable to complete activities of daily living and would require supportive nursing services # Continue Medical Management per primary team # Recommend nutritional support such as ensure with meals and monitoring food intake. # Continue Thiamine and Vitamin B12 # QTc today 460 # Continue Remeron 7.5mg qhs for depression, sleep and appetite. # Continue WAM protocol for alcohol withdrawal # Patient unable to leave AMA # Continue constant observation # Obtained collateral history from Kaylie his health care proxy. #Capacity was re- evaluated today and the patient continues to lack decision making capacity at this time. While he is able to verbalize a choice, he is unable to understand the meaning of the information communicated to him about his condition, as well as the outcome and the consequences of accepting or refusing various treatment options. Furthermore the patient is unable to engage in a consistent and rational process of considering alternative treatment options. # Due to the patients current cognitive state, alcohol rehabilitation at this time would not be effective until he shows improvement. Unless patient shows improvement in the course of hospitalization, recommend considering disposition to a nursing facility due to the patients inability to complete activities of daily living. # Psychiatry will continue to follow the patient Amlodipine Besylate (Norvasc Tab*) 10 mg PO DAILY [facility] Last Admin: 06/29/19 10:14 Dose: 10 mg Cyanocobalamin (Vitamin B12 Tab*) 1,000 mcg PO DAILY [facility] Last Admin: 06/29/19 10:15 Dose: 1,000 mcg Folic Acid (Folvite Tab*) 1 mg PO DAILY [facility] Last Admin: 06/29/19 10:16 Dose: 1 mg Potassium Chloride/Sodium Chloride (Ns 0.9% W/ 20 Meq Kcl 1000 Ml*) 1,000 mls @ 125 mls/hr IV PER RATE [facility] Last Admin: 06/29/19 01:53 Dose: 125 mls/hr Potassium Chloride (Potassium Chloride 20 Meq/100 Ml Ivpremix*) 20 meq in 100 mls @ 50 mls/hr IV Q2H [facility] Stop: 06/29/19 11:59 Last Admin: 06/29/19 11:02 Dose: 50 mls/hr Labetalol HCl (Trandate Tab*) 100 mg PO BID [facility] Last Admin: 06/29/19 10:15 Dose: 100 mg Lorazepam (Ativan Inj*) 0 - 3 mg IV PUSH .PER [facility] PROTOCOL [facility]; Protocol Last Admin: 06/29/19 11:00 Dose: 2 mg Lorazepam (Ativan Tab(*)) 0.5 mg PO Q8H [facility] Stop: 06/30/19 02:31 Last Admin: 06/29/19 11:00 Dose: 0.5 mg Magnesium Oxide (Magox 400 Tab*) 400 mg PO BID [facility] Last Admin: 06/29/19 10:15 Dose: 400 mg Melatonin (Melatonin) 3 mg PO DAILY PRN PRN Reason: SLEEP Last Admin: 06/27/19 22:50 Dose: 3 mg Mirtazapine (Remeron Tab*) 7.5 mg PO BEDTIME [facility] Last Admin: 06/28/19 21:26 Dose: 7.5 mg Miscellaneous (Ativan Pyxis Carranza) 1 ea N/A .PYXIS CARRANZA PRN PRN Reason: PER PROTOCOL Potassium Chloride (Klor Con Er Tab*) 20 meq PO BID [facility] Last Admin: 06/29/19 10:15 Dose: 20 meq Primidone (Mysoline Tab(*)) 250 mg PO TID [facility] Last Admin: 06/29/19 10:16 Dose: 250 mg Propranolol HCl (Inderal Tab*) 20 mg PO QID PRN PRN Reason: .ANXIETY Rifaximin (Xifaxan*) 550 mg PO BID [facility] Last Admin: 06/29/19 10:15 Dose: 550 mg Thiamine HCl (Vitamin B-1 Tab*) 100 mg PO DAILY [facility] Last Admin: 06/29/19 10:15 Dose: 100 mg Tramadol HCl (Ultram*) 50 mg PO Q6H PRN PRN Reason: PAIN - MODERATE Last Admin: 06/29/19 02:26 Dose: 50 mg
[2019-06-29] MEDS: amLODIPine TAB* 5 MG PO SCH (10:14)
[2019-06-29] MEDS: RiFAXimin* 550 MG TAB PO SCH ×2 (10:15→21:26)
[2019-06-29] MEDS: Labetalol TAB* 100 MG PO SCH ×2 (10:15→21:26)
[2019-06-29] MEDS: Magnesium Oxide TAB* 400 MG PO SCH ×2 (10:15→21:26)
[2019-06-29] MEDS: Thiamine TAB* 100 MG TAB PO SCH (10:15)
[2019-06-29] MEDS: Potassium Chlor TAB* 10 MEQ TAB.ER PO SCH ×2 (10:15→21:25)
[2019-06-29] MEDS: Cyanocobalamin TAB* 500 MCG PO SCH (10:15)
[2019-06-29] MEDS: PRIMIDONE 250 MG PO SCH ×3 (10:16→21:26)
[2019-06-29] MEDS: Folic Acid TAB* 1 MG PO SCH (10:16)
[2019-06-29] MEDS: LORazepam TAB(*) 0.5 MG PO SCH ×2 (11:00→18:41)
[2019-06-29] MEDS: KCL 20 MEQ/100 ML IVPREMIX* 20 MEQ/100 ML BAG IV SCH ×2 (11:02→12:47)
--- NOTE | 2019-06-29 16:37 | PN ---
Subjective Date of Service: 06/29/19 Interval History: Patient is picking at clothes. He is sleeping, awakens to touch, voice. He has no complaints, cannot account for himself. Family History: Unchanged from Admission Social History: Unchanged from Admission Past Medical History: Unchanged from Admission Objective Active Medications: Amlodipine Besylate (Norvasc Tab*) 10 mg PO DAILY [facility] Last Admin: 06/29/19 10:14 Dose: 10 mg Cyanocobalamin (Vitamin B12 Tab*) 1,000 mcg PO DAILY [facility] Last Admin: 06/29/19 10:15 Dose: 1,000 mcg Folic Acid (Folvite Tab*) 1 mg PO DAILY [facility] Last Admin: 06/29/19 10:16 Dose: 1 mg Potassium Chloride/Sodium Chloride (Ns 0.9% W/ 20 Meq Kcl 1000 Ml*) 1,000 mls @ 125 mls/hr IV PER RATE [facility] Last Admin: 06/29/19 01:53 Dose: 125 mls/hr Labetalol HCl (Trandate Tab*) 100 mg PO BID [facility] Last Admin: 06/29/19 10:15 Dose: 100 mg Lorazepam (Ativan Inj*) 0 - 3 mg IV PUSH .PER [facility] PROTOCOL [facility]; Protocol Last Admin: 06/29/19 12:57 Dose: 2 mg Lorazepam (Ativan Tab(*)) 0.5 mg PO Q8H [facility] Stop: 06/30/19 02:31 Last Admin: 06/29/19 11:00 Dose: 0.5 mg Magnesium Oxide (Magox 400 Tab*) 400 mg PO BID [facility] Last Admin: 06/29/19 10:15 Dose: 400 mg Melatonin (Melatonin) 3 mg PO DAILY PRN PRN Reason: SLEEP Last Admin: 06/27/19 22:50 Dose: 3 mg Mirtazapine (Remeron Tab*) 7.5 mg PO BEDTIME [facility] Last Admin: 06/28/19 21:26 Dose: 7.5 mg Miscellaneous (Ativan Pyxis Carranza) 1 ea N/A .PYXIS CARRANZA PRN PRN Reason: PER PROTOCOL Potassium Chloride (Klor Con Er Tab*) 20 meq PO BID [facility] Last Admin: 06/29/19 10:15 Dose: 20 meq Primidone (Mysoline Tab(*)) 250 mg PO TID [facility] Last Admin: 06/29/19 13:29 Dose: 250 mg Propranolol HCl (Inderal Tab*) 20 mg PO QID PRN PRN Reason: .ANXIETY Rifaximin (Xifaxan*) 550 mg PO BID [facility] Last Admin: 06/29/19 10:15 Dose: 550 mg Thiamine HCl (Vitamin B-1 Tab*) 100 mg PO DAILY [facility] Last Admin: 06/29/19 10:15 Dose: 100 mg Tramadol HCl (Ultram*) 50 mg PO Q6H PRN PRN Reason: PAIN - MODERATE Last Admin: 06/29/19 02:26 Dose: 50 mg Vital Signs - 8 hr 06/29/19 06/29/19 06/29/19 08:41 08:43 09:21 Temperature 36.6 C Pulse Rate 65 Respiratory 18 18 18 Rate Blood Pressure 161/82 (mmHg) O2 Sat by Pulse 99 Oximetry 06/29/19 06/29/19 06/29/19 10:00 11:00 12:00 Temperature 36.8 C 36.0 C Pulse Rate 70 73 Respiratory 16 16 20 Rate Blood Pressure 148/87 143/78 (mmHg) O2 Sat by Pulse 98 99 Oximetry 06/29/19 06/29/19 06/29/19 12:32 12:57 14:00 Temperature 36.3 C Pulse Rate 70 Respiratory 16 20 18 Rate Blood Pressure 135/81 (mmHg) O2 Sat by Pulse 100 Oximetry 06/29/19 06/29/19 06/29/19 15:01 15:04 15:59 Temperature 36.3 C Pulse Rate 64 68 Respiratory 16 16 Rate Blood Pressure 130/52 148/83 (mmHg) O2 Sat by Pulse 99 Oximetry 06/29/19 16:00 Temperature Pulse Rate Respiratory 16 Rate Blood Pressure (mmHg) O2 Sat by Pulse Oximetry Oxygen Devices in Use Now: None Appearance: no distress Ears/Nose/Mouth/Throat: Clear Oropharnyx Neck: No Thyroid Enlargement, Masses Respiratory: Symmetrical Chest Expansion and Respiratory Effort, Clear to Auscultation Cardiovascular: NL Sounds; No Murmurs; No JVD Abdominal: NL Sounds; No Tenderness; No Distention, No Hepatosplenomegaly Neurological: Alert and Oriented x 3 Lines/Tubes/Other Access: Clean, Dry and Intact Peripheral IV Nutrition: Taking PO's - Nutrition: Malnutrition Diagnosis/Plan Malnutrition Assessment by Registered Dietitian: Malnutrition Assessment Clinical Characteristics Chronic,Severe Malnutrition Assessment: Inadequate Oral Intake - Noted pt w/ poor intake Criteria (receiving Remeron); consumed 25% L today on clear liquid diet - Anticipate pt meeting <75% nutrient needs x1 mo (severe) Unintentional Weight Loss - Noted pt w/ wt loss per records; current wt 125lb, prev wt on record 146lb (05/2019) - 13% loss x 1 mo (severe) Malnutrition Assessment: Nutritional Supplementals/Nourishments - Will Interventions trial Ensure Clear (240kcal, 8g prot/serv) w/ B , L, and D daily to optimize kcal/prot intake; will monitor acceptance GI Related - Recommend giving antiemetic PRN; will monitor GI s/sx for impact on intake and ability to advance diet Textures Modification - No noted evidence of difficulty chewing/swallowing per chart; will monitor tolerance to regular textures and recommend EXTRUDER TENDER eval as indicated. Malnutrition Assessment: Goals 1) Recommend advancing diet to regular unrestricted as able 2) Pt will tolerate diet advnacement w/o exac/ development of GI s/sx and/or difficulty chewing /swallowing 3) Adequate po intake to support lean body mass and hydration status 4) Improve fluid/electrolyte balance w/ adequate po intake and repletion PRN 5) Maintain bowel regularity w/ adequate po intake w/o development of diarrhea/constipation Result Diagrams: 06/29/19 05:16 06/29/19 05:16 Additional Lab and Data: Laboratory Tests 06/28/19 05:08 Magnesium 1.6 L Assess/Plan/Problems-Billing Assessment: 58 year old man w/ HTN, h/o hemorrhagic CVA, here with alcohol withdrawal. - Patient Problems (1) Alcohol withdrawal delirium Current Visit: Yes Status: Acute Priority: High Code(s): F10.231 - ALCOHOL DEPENDENCE WITH WITHDRAWAL DELIRIUM SNOMED Code(s): 7263857 Comment: -Patient appears more tremulous today, will receive ativan prn per [place] -Psychiatry note appreciated, does not have capacity to leave AMA. -On thiamine IV, possible Wernickes/Korsakoff -Appreciate Dr Castañeda's consult, will plan for subacute medical rehab, not alcohol rehab (2) Hypokalemia Current Visit: No Status: Acute Priority: Medium Code(s): E87.6 - HYPOKALEMIA SNOMED Code(s): 23614314 Comment: - Mg stable, K stable will replete further IV and PO, both potassium and magnesium. - Will recheck in AM. (3) Suicidal thoughts Current Visit: Yes Status: Acute Priority: Medium Code(s): R45.851 - SUICIDAL IDEATIONS SNOMED Code(s): 9179412 Comment: -Will continue 1:1 observation -Will need reassessment of capacity when completing W[facility] protocol. -No suicidal issues at this time. (4) DVT prophylaxis Current Visit: No Status: Acute Priority: Low Code(s): MZO4150 - SNOMED Code(s): 107671435 Comment: - SCDs only Status and Disposition: Inpatient; Should plan for rehabilitation after detox
[2019-06-29] MEDS: Mirtazapine TAB* 15 MG PO SCH (21:27)
[2019-06-30] MEDS: LORazepam TAB(*) 0.5 MG PO SCH (02:20)
[2019-06-30] MEDS: NS 0.9% w/ 20 Meq KCL 1000 ML* 1,000 ML IV SCH ×3 (02:53→20:05)
[2019-06-30 06:50] LABS: BUN/Creatinine Ratio 4.5 (8-20); Calcium 8.2 mg/dL (8.6-10.3); EGFR African American 239.5 (>60); EGFR Non-African American 197.9 (>60); Magnesium 1.7 mg/dL (1.9-2.7); Potassium 3.4 mmol/L (3.5-5.0)
[2019-06-30] MEDS: Cyanocobalamin TAB* 500 MCG PO SCH (10:39)
[2019-06-30] MEDS: amLODIPine TAB* 5 MG PO SCH (10:39)
[2019-06-30] MEDS: Thiamine TAB* 100 MG TAB PO SCH (10:40)
[2019-06-30] MEDS: RiFAXimin* 550 MG TAB PO SCH ×2 (10:40→21:52)
[2019-06-30] MEDS: Labetalol TAB* 100 MG PO SCH ×2 (10:40→21:51)
[2019-06-30] MEDS: Potassium Chlor TAB* 10 MEQ TAB.ER PO SCH ×2 (10:40→21:50)
[2019-06-30] MEDS: Folic Acid TAB* 1 MG PO SCH (10:40)
[2019-06-30] MEDS: Magnesium Oxide TAB* 400 MG PO SCH ×2 (10:40→21:50)
[2019-06-30] MEDS: PRIMIDONE 250 MG PO SCH ×3 (10:40→21:49)
--- NOTE | 2019-06-30 12:39 | CONSULT ---
Consult Consult: Reason for consult: Psychiatric evaluation CC " I am fine" 58 year old male with a history of severe alcohol use disorder and rapid decline of cognitive abilities. Patient was seen this morning and before the encounter his significant other was in the room. Patient reported getting the best sleep he has ever had. Per staff he ate some food last evening. Patient denied suicidal ideation, intent or plan. Patient stated that he is able to take care for himself however it is apparent that this is not true. His family is not able to provide support in the home setting. Kaylie his health care proxy has been in contact with his family and is in agreement with him going to a supportive care facility. Mental Status Exam APPEARANCE : 58 year old male who appears older than stated age. Patient appears disheveled. BEHAVIOR: Cooperative , calm EYE CONTACT: Fair MOVEMENTS: Bilateral upper extremity tremor SPEECH : Normal rate, rhythm, volume and tone. MOOD : "Good" AFFECT : Restricted THOUGHT PROCESS: Thought blocking, circumstantial THOUGHT CONTENT: no delusions PERCEPTION: visual hallucinations were not evident at this encounter SUICIDALITY denied suicidal ideation, intent or plan HOMICIDALITY Denied homicidal ideation, intent or plan. Insight/judgment: Poor insight and judgment ORIENTATION: Oriented to self year and month, not to location. Diagnosis: Alcohol use disorder, severe with current alcohol withdrawal, Wernicke- Korsakoff syndrome, substance induce depressive disorder Assessment: 58 year old male with alcohol use disorder being treated on the medical floor for alcohol withdrawal. Plan # The patient does NOT require psychiatric inpatient admission at this time # Patient is unable to complete activities of daily living and continues to require supportive nursing services # Continue Medical Management per primary team # Continue Thiamine and Vitamin B12 # Continue Remeron 7.5mg qhs for depression, sleep and appetite. # Continue [facility] protocol for alcohol withdrawal # Patient unable to leave AMA # Continue constant observation # Obtained collateral history from Kaylie his health care proxy. #Patients ability to make decisions on his own was re evaluated today and he continues to lack capacity. While he is able to verbalize a choice, he is unable to understand the meaning of the information communicated to him about his condition, as well as the outcome and the consequences of accepting or refusing various treatment options. Furthermore the patient is unable to engage in a consistent and rational process of considering alternative treatment options. # At this time the patient lacks the ability to engage in a meaningful recovery in the alcohol rehabilitation process and due to the inability to care for himself would require supportive nursing services after hospitalization. # Psychiatry will continue to follow the patient Amlodipine Besylate (Norvasc Tab*) 10 mg PO DAILY [facility] Last Admin: 06/30/19 10:39 Dose: 10 mg Cyanocobalamin (Vitamin B12 Tab*) 1,000 mcg PO DAILY [facility] Last Admin: 06/30/19 10:39 Dose: 1,000 mcg Folic Acid (Folvite Tab*) 1 mg PO DAILY [facility] Last Admin: 06/30/19 10:40 Dose: 1 mg Potassium Chloride/Sodium Chloride (Ns 0.9% W/ 20 Meq Kcl 1000 Ml*) 1,000 mls @ 125 mls/hr IV PER RATE [facility] Last Admin: 06/30/19 10:51 Dose: 125 mls/hr Labetalol HCl (Trandate Tab*) 100 mg PO BID [facility] Last Admin: 06/30/19 10:40 Dose: 100 mg Lorazepam (Ativan Inj*) 0 - 3 mg IV PUSH .PER [facility] PROTOCOL [facility]; Protocol Last Admin: 06/29/19 22:25 Dose: 1 mg Magnesium Oxide (Magox 400 Tab*) 400 mg PO BID [facility] Last Admin: 06/30/19 10:40 Dose: 400 mg Melatonin (Melatonin) 3 mg PO DAILY PRN PRN Reason: SLEEP Last Admin: 06/27/19 22:50 Dose: 3 mg Mirtazapine (Remeron Tab*) 7.5 mg PO BEDTIME [facility] Last Admin: 06/29/19 21:27 Dose: 7.5 mg Miscellaneous (Ativan Pyxis Carranza) 1 ea N/A .PYXIS CARRANZA PRN PRN Reason: PER PROTOCOL Potassium Chloride (Klor Con Er Tab*) 20 meq PO BID [facility] Last Admin: 06/30/19 10:40 Dose: 20 meq Primidone (Mysoline Tab(*)) 250 mg PO TID [facility] Last Admin: 06/30/19 10:40 Dose: 250 mg Propranolol HCl (Inderal Tab*) 20 mg PO QID PRN PRN Reason: .ANXIETY Rifaximin (Xifaxan*) 550 mg PO BID [facility] Last Admin: 06/30/19 10:40 Dose: 550 mg Thiamine HCl (Vitamin B-1 Tab*) 100 mg PO DAILY [facility] Last Admin: 11/22/19 10:40 Dose: 100 mg Tramadol HCl (Ultram*) 50 mg PO Q6H PRN PRN Reason: PAIN - MODERATE Last Admin: 06/29/19 22:11 Dose: 50 mg
[2019-06-30] MEDS ORDERED: LORazepam TAB(*) 1 MG PO SCH (14:00)
[2019-06-30] MEDS: traMADol TAB* 50 MG PO PRN (15:05)
--- NOTE | 2019-06-30 18:05 | PN ---
Subjective Date of Service: 06/30/19 Interval History: Patient sleeping soundly. Was up to chair today. Had swallow eval, advised thin liquids, full solids. Family History: Unchanged from Admission Social History: Unchanged from Admission Past Medical History: Unchanged from Admission Objective Active Medications: Amlodipine Besylate (Norvasc Tab*) 10 mg PO DAILY [facility] Last Admin: 06/30/19 10:39 Dose: 10 mg Cyanocobalamin (Vitamin B12 Tab*) 1,000 mcg PO DAILY [facility] Last Admin: 06/30/19 10:39 Dose: 1,000 mcg Folic Acid (Folvite Tab*) 1 mg PO DAILY [facility] Last Admin: 06/30/19 10:40 Dose: 1 mg Potassium Chloride/Sodium Chloride (Ns 0.9% W/ 20 Meq Kcl 1000 Ml*) 1,000 mls @ 125 mls/hr IV PER RATE [facility] Last Admin: 06/30/19 10:51 Dose: 125 mls/hr Labetalol HCl (Trandate Tab*) 100 mg PO BID [facility] Last Admin: 06/30/19 10:40 Dose: 100 mg Lorazepam (Ativan Tab(*)) 0 - 6 mg PO .PER [facility] PROTOCOL [facility]; Protocol Magnesium Oxide (Magox 400 Tab*) 400 mg PO BID [facility] Last Admin: 06/30/19 10:40 Dose: 400 mg Melatonin (Melatonin) 3 mg PO DAILY PRN PRN Reason: SLEEP Last Admin: 06/27/19 22:50 Dose: 3 mg Mirtazapine (Remeron Tab*) 7.5 mg PO BEDTIME [facility] Last Admin: 06/29/19 21:27 Dose: 7.5 mg Miscellaneous (Ativan Pyxis Carranza) 1 ea N/A .PYXIS CARRANZA PRN PRN Reason: PER PROTOCOL Multivitamins/Minerals (Theragran/Minerals Tab*) 1 tab PO DAILY [facility] Potassium Chloride (Klor Con Er Tab*) 20 meq PO BID [facility] Last Admin: 06/30/19 10:40 Dose: 20 meq Primidone (Mysoline Tab(*)) 250 mg PO TID [facility] Last Admin: 06/30/19 15:05 Dose: 250 mg Propranolol HCl (Inderal Tab*) 20 mg PO QID PRN PRN Reason: .ANXIETY Rifaximin (Xifaxan*) 550 mg PO BID [facility] Last Admin: 06/30/19 10:40 Dose: 550 mg Thiamine HCl (Vitamin B-1 Tab*) 100 mg PO DAILY [facility] Last Admin: 06/30/19 10:40 Dose: 100 mg Tramadol HCl (Ultram*) 50 mg PO Q6H PRN PRN Reason: PAIN - MODERATE Last Admin: 06/30/19 15:05 Dose: 50 mg Vital Signs - 8 hr 06/30/19 06/30/19 06/30/19 14:00 15:05 15:45 Temperature 37.0 C 36.8 C Pulse Rate 75 80 Respiratory 18 18 16 Rate Blood Pressure 127/75 130/79 (mmHg) O2 Sat by Pulse 100 80 Oximetry Oxygen Devices in Use Now: None Appearance: sleeping, no distress Neck: No Thyroid Enlargement, Masses Respiratory: Symmetrical Chest Expansion and Respiratory Effort, Clear to Auscultation Cardiovascular: NL Sounds; No Murmurs; No JVD, No Edema Abdominal: NL Sounds; No Tenderness; No Distention Lines/Tubes/Other Access: Clean, Dry and Intact Peripheral IV Nutrition: Taking PO's - Nutrition: Malnutrition Diagnosis/Plan Malnutrition Assessment by Registered Dietitian: Malnutrition Assessment Clinical Characteristics Chronic,Severe Malnutrition Assessment: Inadequate Oral Intake - Noted pt w/ poor intake Criteria (receiving Remeron); consumed 25% L today on clear liquid diet - Anticipate pt meeting <75% nutrient needs x1 mo (severe) Unintentional Weight Loss - Noted pt w/ wt loss per records; current wt 125lb, prev wt on record 146lb (05/2019) - 13% loss x 1 mo (severe) Malnutrition Assessment: Nutritional Supplementals/Nourishments - Will Interventions trial Ensure Clear (240kcal, 8g prot/serv) w/ B , L, and D daily to optimize kcal/prot intake; will monitor acceptance GI Related - Recommend giving antiemetic PRN; will monitor GI s/sx for impact on intake and ability to advance diet Textures Modification - No noted evidence of difficulty chewing/swallowing per chart; will monitor tolerance to regular textures and recommend PRODUCTION ESTIMATOR eval as indicated. Malnutrition Assessment: Goals 1) Recommend advancing diet to regular unrestricted as able 2) Pt will tolerate diet advnacement w/o exac/ development of GI s/sx and/or difficulty chewing /swallowing 3) Adequate po intake to support lean body mass and hydration status 4) Improve fluid/electrolyte balance w/ adequate po intake and repletion PRN 5) Maintain bowel regularity w/ adequate po intake w/o development of diarrhea/constipation Result Diagrams: 06/29/19 05:16 06/30/19 06:06 Additional Lab and Data: Laboratory Tests 06/27/19 06/28/19 06/29/19 05:14 05:08 05:11 Magnesium 1.4 L 1.6 L Ammonia 78 H 06/29/19 06/30/19 05:16 06:06 Magnesium 1.6 L 1.7 L Ammonia Assess/Plan/Problems-Billing Assessment: 58 year old man w/ HTN, h/o hemorrhagic CVA, here with alcohol withdrawal. - Patient Problems (1) Alcohol withdrawal delirium Current Visit: Yes Status: Acute Priority: High Code(s): F10.231 - ALCOHOL DEPENDENCE WITH WITHDRAWAL DELIRIUM SNOMED Code(s): 5152771 Comment: -Patient appears less tremulous today, will receive ativan prn per WAM, no further standing doses -Does not have capacity to leave AMA. -On thiamine IV, possible Wernickes/Korsakoff -Appreciate Dr Castañeda's consult, will plan for subacute medical rehab (2) Hypokalemia Current Visit: No Status: Acute Priority: Medium Code(s): E87.6 - HYPOKALEMIA SNOMED Code(s): 70734080 Comment: - Mg improved, K improved, not at goal, will replete further IV and PO, both potassium and magnesium. - Will recheck in AM. (3) DVT prophylaxis Current Visit: No Status: Acute Priority: Low Code(s): HDK3529 - SNOMED Code(s): 119376577 Comment: - SCDs only Status and Disposition: Inpatient; Should plan for rehabilitation VIANEY
[2019-06-30] MEDS ORDERED: Docusate CAP* 100 MG PO PRN (19:26)
[2019-06-30] MEDS ORDERED: Senna TAB 8.6 mg* TAB PO PRN (19:27)
[2019-06-30] MEDS: Mirtazapine TAB* 15 MG PO SCH (21:51)
[2019-06-30] MEDS: Melatonin 3 MG TAB PO PRN (22:07)
[2019-07-01] MEDS: traMADol TAB* 50 MG PO PRN ×2 (02:14→18:48)
[2019-07-01] MEDS: NS 0.9% w/ 20 Meq KCL 1000 ML* 1,000 ML IV SCH (03:46)
[2019-07-01 06:09] LABS: Calcium 8.6 mg/dL (8.6-10.3); Magnesium 1.6 mg/dL (1.9-2.7); Potassium 4.4 mmol/L (3.5-5.0)
[2019-07-01 06:15] LABS: BUN/Creatinine Ratio 5.6 (8-20); EGFR African American 189.1 (>60); EGFR Non-African American 156.3 (>60)
[2019-07-01] MEDS: amLODIPine TAB* 5 MG PO SCH (07:46)
[2019-07-01] MEDS: Cyanocobalamin TAB* 500 MCG PO SCH (07:46)
[2019-07-01] MEDS: Magnesium Oxide TAB* 400 MG PO SCH ×2 (07:47→21:53)
[2019-07-01] MEDS: Folic Acid TAB* 1 MG PO SCH (07:47)
[2019-07-01] MEDS: Multivitamins/Minerals TAB PO SCH (07:47)
[2019-07-01] MEDS: Labetalol TAB* 100 MG PO SCH ×2 (07:47→21:53)
[2019-07-01] MEDS: Potassium Chlor TAB* 10 MEQ TAB.ER PO SCH ×2 (07:48→21:52)
[2019-07-01] MEDS: PRIMIDONE 250 MG PO SCH ×3 (07:48→21:52)
[2019-07-01] MEDS: Thiamine TAB* 100 MG TAB PO SCH (07:49)
[2019-07-01] MEDS: RiFAXimin* 550 MG TAB PO SCH ×2 (07:49→21:53)
[2019-07-01] MEDS ORDERED: NS 0.9% w/ 20 Meq KCL 1000 ML* 1,000 ML IV SCH (14:44)
--- NOTE | 2019-07-01 15:18 | PN ---
Subjective Date of Service: 07/01/19 Interval History: Patient feels stronger today. Feels he can walk w/ can rather than walker. Ex-, daughter, and recently ex-GF in room. They are very concerned about him , and supportive. Family History: Unchanged from Admission Social History: Unchanged from Admission Past Medical History: Unchanged from Admission Objective Active Medications: Amlodipine Besylate (Norvasc Tab*) 10 mg PO DAILY [facility] Last Admin: 07/01/19 07:46 Dose: 10 mg Cyanocobalamin (Vitamin B12 Tab*) 1,000 mcg PO DAILY [facility] Last Admin: 07/01/19 07:46 Dose: 1,000 mcg Docusate Sodium (Colace Cap*) 100 mg PO BID PRN PRN Reason: CONSTIPATION Last Admin: 06/30/19 21:52 Dose: 100 mg Folic Acid (Folvite Tab*) 1 mg PO DAILY [facility] Last Admin: 07/01/19 07:47 Dose: 1 mg Potassium Chloride/Sodium Chloride (Ns 0.9% W/ 20 Meq Kcl 1000 Ml*) 1,000 mls @ 60 mls/hr IV PER RATE [facility] Labetalol HCl (Trandate Tab*) 100 mg PO BID [facility] Last Admin: 07/01/19 07:47 Dose: 100 mg Lorazepam (Ativan Tab(*)) 0 - 6 mg PO .PER [facility] PROTOCOL [facility]; Protocol Magnesium Oxide (Magox 400 Tab*) 400 mg PO BID [facility] Last Admin: 07/01/19 07:47 Dose: 400 mg Melatonin (Melatonin) 3 mg PO DAILY PRN PRN Reason: SLEEP Last Admin: 06/30/19 22:07 Dose: 3 mg Mirtazapine (Remeron Tab*) 7.5 mg PO BEDTIME [facility] Last Admin: 06/30/19 21:51 Dose: 7.5 mg Miscellaneous (Ativan Pyxis Carranza) 1 ea N/A .PYXIS CARRANZA PRN PRN Reason: PER PROTOCOL Multivitamins/Minerals (Theragran/Minerals Tab*) 1 tab PO DAILY [facility] Last Admin: 07/01/19 07:47 Dose: 1 tab Potassium Chloride (Klor Con Er Tab*) 20 meq PO BID [facility] Last Admin: 07/01/19 07:48 Dose: 20 meq Primidone (Mysoline Tab(*)) 250 mg PO TID [facility] Last Admin: 07/01/19 14:00 Dose: 250 mg Propranolol HCl (Inderal Tab*) 20 mg PO QID PRN PRN Reason: .ANXIETY Rifaximin (Xifaxan*) 550 mg PO BID [facility] Last Admin: 07/01/19 07:49 Dose: 550 mg Senna (Senokot 8.6 Mg Tab*) 1 tab PO BEDTIME PRN PRN Reason: CONSTIPATION Last Admin: 06/30/19 21:52 Dose: 1 tab Thiamine HCl (Vitamin B-1 Tab*) 100 mg PO DAILY [facility] Last Admin: 07/01/19 07:49 Dose: 100 mg Tramadol HCl (Ultram*) 50 mg PO Q6H PRN PRN Reason: PAIN - MODERATE Last Admin: 07/01/19 02:14 Dose: 50 mg Vital Signs - 8 hr 07/01/19 07/01/19 07/01/19 07:44 08:05 12:24 Temperature 36.6 C 37.4 C Pulse Rate 76 79 Respiratory 14 14 20 Rate Blood Pressure 147/88 129/75 (mmHg) O2 Sat by Pulse 99 99 Oximetry Oxygen Devices in Use Now: None Appearance: alert, no distress Neck: NL Appearance and Movements; NL JVP Respiratory: Clear to Auscultation Cardiovascular: NL Sounds; No Murmurs; No JVD Abdominal: NL Sounds; No Tenderness; No Distention Neurological: Alert and Oriented x 3, - - oriented to place, date, person, situation Lines/Tubes/Other Access: Clean, Dry and Intact Peripheral IV Nutrition: Taking PO's - Nutrition: Malnutrition Diagnosis/Plan Malnutrition Assessment by Registered Dietitian: Malnutrition Assessment Clinical Characteristics Chronic,Severe Malnutrition Assessment: Inadequate Oral Intake - Noted pt w/ poor intake Criteria (receiving Remeron); consumed 25% L today on clear liquid diet - Anticipate pt meeting <75% nutrient needs x1 mo (severe) Unintentional Weight Loss - Noted pt w/ wt loss per records; current wt 125lb, prev wt on record 146lb (05/2019) - 13% loss x 1 mo (severe) Malnutrition Assessment: Nutritional Supplementals/Nourishments - Will Interventions trial Ensure Clear (240kcal, 8g prot/serv) w/ B , L, and D daily to optimize kcal/prot intake; will monitor acceptance GI Related - Recommend giving antiemetic PRN; will monitor GI s/sx for impact on intake and ability to advance diet Textures Modification - No noted evidence of difficulty chewing/swallowing per chart; will monitor tolerance to regular textures and recommend ANNEALING FURNACE OPERATOR eval as indicated. Malnutrition Assessment: Goals 1) Recommend advancing diet to regular unrestricted as able 2) Pt will tolerate diet advnacement w/o exac/ development of GI s/sx and/or difficulty chewing /swallowing 3) Adequate po intake to support lean body mass and hydration status 4) Improve fluid/electrolyte balance w/ adequate po intake and repletion PRN 5) Maintain bowel regularity w/ adequate po intake w/o development of diarrhea/constipation Result Diagrams: 06/29/19 05:16 07/01/19 05:11 Additional Lab and Data: Laboratory Tests Assess/Plan/Problems-Billing Assessment: 58 year old man w/ HTN, h/o hemorrhagic CVA, here with alcohol withdrawal. - Patient Problems (1) Alcohol withdrawal delirium Current Visit: Yes Status: Acute Priority: High Code(s): F10.231 - ALCOHOL DEPENDENCE WITH WITHDRAWAL DELIRIUM SNOMED Code(s): 9073574 Comment: -Patient appears improved today, not receiving any ativan prn per WAM, no further standing doses -Does not have capacity to leave AMA. -On thiamine IV, will switch to, possible Wernickes/Korsakoff -Per psych consult, will plan for subacute medical rehab. -Need to know from psychiatry whether we can stop 1:1 (2) Hypokalemia Current Visit: No Status: Acute Priority: Medium Code(s): E87.6 - HYPOKALEMIA SNOMED Code(s): 16166994 Comment: - Mg improved, K at goal, can continue to replete PO. - Will recheck in AM. (3) DVT prophylaxis Current Visit: No Status: Acute Priority: Low Code(s): [id number] - SNOMED Code(s): 550625905 Comment: - SCDs only Status and Disposition: Inpatient; Should plan for rehabilitation VIANEY
[2019-07-01] MEDS: Melatonin 3 MG TAB PO PRN (21:52)
[2019-07-01] MEDS: Mirtazapine TAB* 15 MG PO SCH (21:53)
--- NOTE | 2019-07-01 22:15 | CONSULT ---
Consult Consult: Identification: Moris Winchester is a 58 year old man with a history of severe alcohol use disorder and rapid decline of cognitive abilities. Patient was seen in continuing psychiatric consultation today. Dr Ricketts had requested specifically to assess whether there is continued need for constant observation, as he and other staff have assessed Mr Winchester as markedly improved in his mental status over the last 24 hours. Patient again reported getting good sleep, and denied suicidal ideation, intent or plan. He was fully oriented to person, place time and situation. He also reported wishing to continue care at a physical rehab program, though voiced concern about the possibility of an extended stay at [facility] if a rehab bed is not available early next week. He agreed to call his significant other, Ayesha, for us three to discuss his proposal to go home instead and have her provide support if a bed cannot be found. He did seem more accepting that he cannot adequately care for himself to return home independently at this time. He agrees to meet with me and Ayesha at his hospital room tomorrow at 10 am to discuss going to a supportive care facility. Mental Status Exam: Interviewed supine in hospital bed. Not malodorous adequate hygiene, mildly disheveled. Cooperative but not fully collaborative. Linear and goal directed thought process. Mood good with congruent affect. No speech abnormality. Motor and gait status not fully assessed, but no gross motor abnormality seen in this limited setting. Denies AH/VH/SI/HI/PI. Reports he had been expressed his frustration at being told he cannot drive with saying I might as well be then with no intent or plan to harm himself. Ayesha agrees with this report, and does not feel he is at any risk of harming himself. Still has moderately impaired insight and judgment as regards need for treatment, though agrees now to physical rehab. Diagnosis: Alcohol use disorder, severe with current alcohol withdrawal, Wernicke- Korsakoff syndrome, substance induce depressive disorder Assessment: Mr Winchester denies any dangerous intent or plan and agrees with proposed after care plan. He does not need constant observation on the medical floor, and does not need admission to the [facility]. Plan: Will meet again with Mr Winchester and his girlfriend tomorrow to clarify his commitment to aftercare as recommended by medical treatment team.
[2019-07-02 07:19] LABS: Albumin 3.6 g/dL (3.2-5.2); Calcium 8.9 mg/dL (8.6-10.3); Magnesium 1.7 mg/dL (1.9-2.7); Potassium 4.4 mmol/L (3.5-5.0); Total Bilirubin 0.5 mg/dL (0.2-1.0)
[2019-07-02 07:25] LABS: Albumin/Globulin Ratio 1.6 (1-3); BUN/Creatinine Ratio 10.3 (8-20); EGFR African American 174.1 (>60); EGFR Non-African American 143.9 (>60); Globulin 2.3 g/dL (2-4); Total Protein 5.9 g/dL (6.4-8.9)
[2019-07-02] MEDS: Cyanocobalamin TAB* 500 MCG PO SCH (09:12)
[2019-07-02] MEDS: amLODIPine TAB* 5 MG PO SCH (09:12)
[2019-07-02] MEDS: Multivitamins/Minerals TAB PO SCH (09:12)
[2019-07-02] MEDS: Thiamine TAB* 100 MG TAB PO SCH (09:12)
[2019-07-02] MEDS: Labetalol TAB* 100 MG PO SCH ×2 (09:12→20:25)
[2019-07-02] MEDS: RiFAXimin* 550 MG TAB PO SCH ×2 (09:13→20:25)
[2019-07-02] MEDS: PRIMIDONE 250 MG PO SCH ×3 (09:13→20:25)
[2019-07-02] MEDS: Potassium Chlor TAB* 10 MEQ TAB.ER PO SCH ×2 (09:13→20:25)
[2019-07-02] MEDS: Folic Acid TAB* 1 MG PO SCH (09:13)
[2019-07-02] MEDS: Magnesium Oxide TAB* 400 MG PO SCH ×2 (09:13→20:25)
--- NOTE | 2019-07-02 11:20 | CONSULT ---
Consult Consult: Identification: Brayan Winchester is a 58 year old man with a history of severe alcohol use disorder and rapid decline of cognitive abilities. Patient was seen in continuing psychiatric consultation again today. We met for about 45 minutes with his former betito Horton. We discussed his history of multiple relapses to severe alcohol use disorder, and the physical, financial and social costs of his severe alcohol use disorder. Brayan invariably presented minimizing responses to observations Sol made about these costs, for example contending that after returning home from alcohol rehab he had a sip of beer and was repulsed by the taste of it in response to Robert report of his relapse to alcohol shortly after coming home from rehab. His cognitive status has improved to the point that he is alert and oriented to person, place, time and situation. He remains perseverative in reframing his recollections and assessment of his alcohol use toward minimization his risk of relapse and consequently further severe harm to his health, finances and social supports. Patient again reported getting good sleep, and denied suicidal ideation, intent or plan. He reiterated his agreement to continue care at a physical rehab program, though continued to voice concern about the possibility of an extended stay at [facility] if a rehab bed is not available early this week. He would like to engage in physical rehab activities here if he is delayed in placement into an inpatient physical rehab program. Mental Status Exam: Interviewed supine in hospital bed. Good grooming and hygiene, not disheveled. Cooperative and a bit more collaborative today, but still without adequate appreciation of risks of relapse to alcohol. Overtly linear and goal directed thought process. Mood good with congruent affect. No speech abnormality. Motor and gait status not fully assessed, but no gross motor abnormality seen in this limited setting. Denies AH/VH/SI/HI/PI. Insight and judgment impaird by cognitive restructuring in defense of his alcohol use. Diagnosis: Alcohol use disorder, severe with current alcohol withdrawal; Wernicke- Korsakoff syndrome Assessment: Mr Winchester denies any dangerous intent or plan and agrees with proposed after care plan. He does not need constant observation on the medical floor, and does not need admission to the [facility]. He would like to initiate some physical rehab activities, particularly if there is a delay in transfer to a program for that. He demonstrates limited insight into the harms done by alcohol to his health, finances and social life, raising concern about his commitment to doing what is necessary to establish and maintain abstinence from alcohol. Plan: Continue medical management of recovery from extended alcohol intoxication with vitamin supplementation, WAM protocol. Ongoing coverage of case to be provided by weekday psychiatry team.
[2019-07-02] MEDS: traMADol TAB* 50 MG PO PRN (20:24)
[2019-07-02] MEDS: Mirtazapine TAB* 15 MG PO SCH (20:25)
[2019-07-02] MEDS: Melatonin 3 MG TAB PO PRN (21:52)
[2019-07-03] MEDS: LOTEPREDNOL ETABONATE 0.2% BOTH EYES SCH (03:30)
[2019-07-03] MEDS: traMADol TAB* 50 MG PO PRN ×3 (04:56→22:01)
[2019-07-03] MEDS: RiFAXimin* 550 MG TAB PO SCH ×2 (09:20→20:11)
[2019-07-03] MEDS: Magnesium Oxide TAB* 400 MG PO SCH ×2 (09:21→20:11)
[2019-07-03] MEDS: amLODIPine TAB* 5 MG PO SCH (09:21)
[2019-07-03] MEDS: Labetalol TAB* 100 MG PO SCH ×2 (09:21→20:12)
[2019-07-03] MEDS: Cyanocobalamin TAB* 500 MCG PO SCH (09:21)
[2019-07-03] MEDS: Multivitamins/Minerals TAB PO SCH (09:22)
[2019-07-03] MEDS: PRIMIDONE 250 MG PO SCH ×3 (09:22→20:12)
[2019-07-03] MEDS: Thiamine TAB* 100 MG TAB PO SCH (09:22)
[2019-07-03] MEDS: Folic Acid TAB* 1 MG PO SCH (09:22)
[2019-07-03] MEDS: Potassium Chlor TAB* 10 MEQ TAB.ER PO SCH ×2 (09:23→20:11)
--- NOTE | 2019-07-03 10:07 | CONSULT ---
Consult Consult: Reason for consult: Psychiatric evaluation CC " I am fine" 58 year old male with a history of severe alcohol use disorder. Patient was seen this morning. It is evident that the patients cognitive abilities have shown improvement over the weekend. The patient is eating and sleeping without difficulty. Patient expressed that he would not like to go to alcohol rehabilitation but is willing to go to physical rehabilitation. The patient denied suicidal ideation, intent or plan. Patient was unable to recall his ability to take care of himself in the last few weeks before he was hospitalized. He noted that drinking has led many problems in his life and would like to remain alcohol free. He denied alcohol cravings and is interested in taking medications that prevent him to use alcohol. Patient was seen over the weekend by Dr. Tim. Mental Status Exam APPEARANCE : 58 year old male who appears older than stated age. Patient appears disheveled. BEHAVIOR: Cooperative , calm EYE CONTACT: Fair MOVEMENTS: no abnormal movements SPEECH : Normal rate, rhythm, volume and tone. MOOD : "Good" AFFECT : Euthymic THOUGHT PROCESS: Linear and goal directed THOUGHT CONTENT: no delusions PERCEPTION: No auditory and or visual hallucinations SUICIDALITY Denied suicidal ideation, intent or plan HOMICIDALITY Denied homicidal ideation, intent or plan. Insight/judgment: Poor insight and judgment ORIENTATION: Oriented to self , year month and location Diagnosis: Alcohol use disorder, severe with current alcohol withdrawal, Wernicke- Korsakoff syndrome, substance induce depressive disorder Assessment: 58 year old male with alcohol use disorder being treated on the medical floor for alcohol withdrawal. Plan # The patient does NOT require psychiatric inpatient admission at this time # Patient showed remarkable improvement on re-evaluation today. He was able to complete thoughts in a linear organized way, and was able to comment on how alcohol impacts his life. # Continue Medical Management per primary team # Continue Thiamine and Vitamin B12 # Continue Remeron 7.5mg qhs for depression, sleep and appetite. # Continue [place] protocol for alcohol withdrawal # Patient does not require constant observation # Obtained collateral history from Kaylie his health care proxy. # Recommend Disulfiram 500mg PO daily for first week then 250mg thereafter for alcohol abstinence. LFTs in acceptable range, patient was educated about use and plans to have girlfriend monitor use. Recommend monitoring LFTs with use. #Patient was re- evaluated today and HAS the capacity to make own decisions. He was able to verbalize a choice, and understand the meaning of the information communicated to him about his condition, as well as the outcome and the consequences of accepting or refusing various treatment options. The patient was able to consider alternative treatment options. # Psychiatry will continue to follow the patient Sodium 135 mmol/L (135-145) 07/02/19 06:50 Potassium 4.4 mmol/L (3.5-5.0) 07/02/19 06:50 BUN 6 mg/dL (6-24) 07/02/19 06:50 Creatinine 0.58 mg/dL (0.67-1.17) L 07/02/19 06:50 Calcium 8.9 mg/dL (8.6-10.3) 07/02/19 06:50 Magnesium 1.7 mg/dL (1.9-2.7) L 07/02/19 06:50 AST 42 U/L (13-39) H 07/02/19 06:50 ALT 39 U/L (7-52) 07/02/19 06:50 Amlodipine Besylate (Norvasc Tab*) 10 mg PO DAILY [facility] Last Admin: 07/03/19 09:21 Dose: 10 mg Cyanocobalamin (Vitamin B12 Tab*) 1,000 mcg PO DAILY [facility] Last Admin: 07/03/19 09:21 Dose: 1,000 mcg Docusate Sodium (Colace Cap*) 100 mg PO BID PRN PRN Reason: CONSTIPATION Last Admin: 06/30/19 21:52 Dose: 100 mg Folic Acid (Folvite Tab*) 1 mg PO DAILY [facility] Last Admin: 07/03/19 09:22 Dose: 1 mg Labetalol HCl (Trandate Tab*) 100 mg PO BID [facility] Last Admin: 07/03/19 09:21 Dose: 100 mg Lactulose (Lactulose*) 30 ml PO TID [facility] Last Admin: 07/03/19 09:20 Dose: 30 ml Lorazepam (Ativan Tab(*)) 0 - 6 mg PO .PER [facility] PROTOCOL [facility]; Protocol Magnesium Oxide (Magox 400 Tab*) 400 mg PO BID [facility] Last Admin: 07/03/19 09:21 Dose: 400 mg Melatonin (Melatonin) 9 mg PO DAILY PRN PRN Reason: SLEEP Last Admin: 07/02/19 21:52 Dose: 9 mg Mirtazapine (Remeron Tab*) 7.5 mg PO BEDTIME [facility] Last Admin: 07/02/19 20:25 Dose: 7.5 mg Miscellaneous (Ativan Pyxis Carranza) 1 ea N/A .PYXIS CARRANZA PRN PRN Reason: PER PROTOCOL Multivitamins/Minerals (Theragran/Minerals Tab*) 1 tab PO DAILY [facility] Last Admin: 07/03/19 09:22 Dose: 1 tab Pto:Loteprednol Etabonate [Alrex] 0. 2% 1 drop BOTH EYES DAILY [facility] Last Admin: 07/03/19 03:30 Dose: 1 drop Potassium Chloride (Klor Con Er Tab*) 20 meq PO BID [facility] Last Admin: 07/03/19 09:23 Dose: 20 meq Primidone (Mysoline Tab(*)) 250 mg PO TID [facility] Last Admin: 07/03/19 09:22 Dose: 250 mg Propranolol HCl (Inderal Tab*) 20 mg PO QID PRN PRN Reason: .ANXIETY Rifaximin (Xifaxan*) 550 mg PO BID [facility] Last Admin: 07/03/19 09:20 Dose: 550 mg Senna (Senokot 8.6 Mg Tab*) 1 tab PO BEDTIME PRN PRN Reason: CONSTIPATION Last Admin: 06/30/19 21:52 Dose: 1 tab Thiamine HCl (Vitamin B-1 Tab*) 100 mg PO DAILY [facility] Last Admin: 07/03/19 09:22 Dose: 100 mg Tramadol HCl (Ultram*) 50 mg PO Q6H PRN PRN Reason: PAIN - MODERATE Last Admin: 07/03/19 04:56 Dose: 50 mg
--- NOTE | 2019-07-03 17:21 | PN ---
Subjective Date of Service: 07/03/19 Interval History: No acute events overnight. Tmax 100.0 at 2335. Thinks he may have banged his left 1st toe in his sleep as he woke up with pain. No hx of gout. He is feeling much better over the last 2 days. Wants to go to get physical therapy for "3 days", get stronger and gain some weight back. Psych saw him today, thought he had capacity. Previously went to "[facility]" or "[facility]" inpatient alcohol rehab. Seeing private therapist Teddy Rosenberg. Pt says the EUS at [facility] in September but does says no biopsy done and not concerning for pancreatic cancer. Planned repeat after sober for 3 months. Has had continued weight loss of 165->125 after the initial intentional weight between Apr and Jun of 20 lbs. Has never had a colonscopy. Family History: Unchanged from Admission Social History: Unchanged from Admission Past Medical History: Unchanged from Admission Objective Active Medications: Amlodipine Besylate (Norvasc Tab*) 10 mg PO DAILY [facility] Last Admin: 07/03/19 09:21 Dose: 10 mg Cyanocobalamin (Vitamin B12 Tab*) 1,000 mcg PO DAILY [facility] Last Admin: 07/03/19 09:21 Dose: 1,000 mcg Docusate Sodium (Colace Cap*) 100 mg PO BID PRN PRN Reason: CONSTIPATION Last Admin: 06/30/19 21:52 Dose: 100 mg Folic Acid (Folvite Tab*) 1 mg PO DAILY [facility] Last Admin: 07/03/19 09:22 Dose: 1 mg Labetalol HCl (Trandate Tab*) 100 mg PO BID [facility] Last Admin: 07/03/19 09:21 Dose: 100 mg Lactulose (Lactulose*) 30 ml PO TID [facility] Last Admin: 07/03/19 14:56 Dose: 30 ml Lorazepam (Ativan Tab(*)) 0 - 6 mg PO .PER [facility] PROTOCOL [facility]; Protocol Magnesium Oxide (Magox 400 Tab*) 400 mg PO BID [facility] Last Admin: 07/03/19 09:21 Dose: 400 mg Melatonin (Melatonin) 9 mg PO DAILY PRN PRN Reason: SLEEP Last Admin: 07/02/19 21:52 Dose: 9 mg Mirtazapine (Remeron Tab*) 7.5 mg PO BEDTIME [facility] Last Admin: 07/02/19 20:25 Dose: 7.5 mg Miscellaneous (Ativan Pyxis Alberto) 1 ea N/A .PYXIS ALBERTO PRN PRN Reason: PER PROTOCOL Multivitamins/Minerals (Theragran/Minerals Tab*) 1 tab PO DAILY [facility] Last Admin: 07/03/19 09:22 Dose: 1 tab Pto:Loteprednol Etabonate [Alrex] 0. 2% 1 drop BOTH EYES DAILY [facility] Last Admin: 07/03/19 03:30 Dose: 1 drop Potassium Chloride (Klor Con Er Tab*) 20 meq PO BID [facility] Last Admin: 07/03/19 09:23 Dose: 20 meq Primidone (Mysoline Tab(*)) 250 mg PO TID [facility] Last Admin: 07/03/19 14:57 Dose: 250 mg Propranolol HCl (Inderal Tab*) 20 mg PO QID PRN PRN Reason: .ANXIETY Rifaximin (Xifaxan*) 550 mg PO BID [facility] Last Admin: 07/03/19 09:20 Dose: 550 mg Senna (Senokot 8.6 Mg Tab*) 1 tab PO BEDTIME PRN PRN Reason: CONSTIPATION Last Admin: 06/30/19 21:52 Dose: 1 tab Thiamine HCl (Vitamin B-1 Tab*) 100 mg PO DAILY [facility] Last Admin: 07/03/19 09:22 Dose: 100 mg Tramadol HCl (Ultram*) 50 mg PO Q6H PRN PRN Reason: PAIN - MODERATE Last Admin: 07/03/19 12:16 Dose: 50 mg Vital Signs - 8 hr 07/03/19 07/03/19 07/03/19 11:15 12:16 14:15 Temperature 98.4 F Pulse Rate 71 Respiratory 16 18 16 Rate Blood Pressure 123/69 (mmHg) O2 Sat by Pulse 99 Oximetry 07/03/19 15:15 Temperature Pulse Rate Respiratory 16 Rate Blood Pressure (mmHg) O2 Sat by Pulse Oximetry Oxygen Devices in Use Now: None Appearance: NAD, essential tremors Ears/Nose/Mouth/Throat: NL Teeth, Lips, Gums Neck: NL Appearance and Movements; NL JVP Respiratory: Symmetrical Chest Expansion and Respiratory Effort, Clear to Auscultation Cardiovascular: NL Sounds; No Murmurs; No JVD, RRR Abdominal: NL Sounds; No Tenderness; No Distention, No Hepatosplenomegaly Extremities: No Edema Skin: No Rash or Ulcers Neurological: Alert and Oriented x 3, NL Muscle Strength and Tone, - - very slight asterixis vs essential tremor. AOx3. Nutrition: Taking PO's - Nutrition: Malnutrition Diagnosis/Plan Malnutrition Assessment by Registered Dietitian: Malnutrition Assessment Clinical Characteristics Chronic,Severe Malnutrition Assessment: Inadequate Oral Intake - Noted pt w/ poor intake Criteria (receiving Remeron); consumed 25% L today on clear liquid diet - Anticipate pt meeting <75% nutrient needs x1 mo (severe) Unintentional Weight Loss - Noted pt w/ wt loss per records; current wt 125lb, prev wt on record 146lb (05/2019) - 13% loss x 1 mo (severe) Malnutrition Assessment: Nutritional Supplementals/Nourishments - Will Interventions trial Ensure Clear (240kcal, 8g prot/serv) w/ B , L, and D daily to optimize kcal/prot intake; will monitor acceptance GI Related - Recommend giving antiemetic PRN; will monitor GI s/sx for impact on intake and ability to advance diet Textures Modification - No noted evidence of difficulty chewing/swallowing per chart; will monitor tolerance to regular textures and recommend APPAREL SALES ASSOCIATE eval as indicated. Malnutrition Assessment: Goals 1) Recommend advancing diet to regular unrestricted as able 2) Pt will tolerate diet advnacement w/o exac/ development of GI s/sx and/or difficulty chewing /swallowing 3) Adequate po intake to support lean body mass and hydration status 4) Improve fluid/electrolyte balance w/ adequate po intake and repletion PRN 5) Maintain bowel regularity w/ adequate po intake w/o development of diarrhea/constipation Result Diagrams: 06/29/19 05:16 07/02/19 06:50 Additional Lab and Data: Laboratory Tests Assess/Plan/Problems-Billing Assessment: 58 yo male PMH Alcoholism, Alcoholic Encephalopathy, TB s/p isoniazide, HTN, 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 (CA-19-9 [id number]) presenting with alcohol intoxication and withdrawal. - Patient Problems (1) Alcohol withdrawal delirium Current Visit: Yes Status: Acute Priority: High Code(s): F10.231 - ALCOHOL DEPENDENCE WITH WITHDRAWAL DELIRIUM SNOMED Code(s): 7780324 Comment: -Patient has reportedly improved greatly over the last 2 days. -not required Ativan since 06/30 2am. 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 He does not want inpatient rehab. - no longer needing 1:1 (2) Suicidal thoughts Current Visit: Yes Status: Acute Priority: Medium Code(s): R45.851 - SUICIDAL IDEATIONS SNOMED Code(s): 5757761 Comment: -resolved. -states today this was based on "flippant" comment in response to Dr. Foss telling him to not drive. - no longer on 1:1 - appreaciate Psych reqs. (3) Increased ammonia level Current Visit: No Status: Acute Code(s): R79.89 - OTHER SPECIFIED ABNORMAL FINDINGS OF BLOOD CHEMISTRY SNOMED Code(s): 829434019 Comment: xifatan, lactulose TID (4) Moderate protein-calorie malnutrition Current Visit: No Status: Acute Code(s): E44.0 - MODERATE PROTEIN-CALORIE MALNUTRITION SNOMED Code(s): 061551723 Comment: - His weight has continued to fall in setting of alcoholism. He needs a colonsocpy. Will request (Dr. Foss) and [facility] EUS records from Sep 2018. (5) Essential tremor Current Visit: No Status: Chronic Code(s): G25.0 - ESSENTIAL TREMOR SNOMED Code(s): 118644183 Comment: - Continue Primidone and propranolol (6) HTN (hypertension) Current Visit: No Status: Chronic Code(s): I10 - ESSENTIAL (PRIMARY) HYPERTENSION SNOMED Code(s): 45129896 Comment: - continue amlodipine and propranolol (also on labetalol?) (7) Pancreatic mass Current Visit: No Status: Chronic Comment: - was seen back in September 2017 , sent for EUS at [facility]. Requesting records from GI ([facility]) and [facility] as patient is not the best historian and still having weight loss (unintentional). - Previous CEA is 7.2 and Ca 19-9 is 7513,repeat CA 19-9 still over 4000 Status and Disposition: Inpatient; waiting on intermodal owner operator truck driver care options (which was plan when he did not have capacity) though not clear that patient would consent to that.
[2019-07-03] MEDS: Mirtazapine TAB* 15 MG PO SCH (20:12)
[2019-07-03] MEDS: Melatonin 3 MG TAB PO PRN (22:00)
[2019-07-04] MEDS: LOTEPREDNOL ETABONATE 0.2% BOTH EYES SCH (08:33)
[2019-07-04] MEDS: RiFAXimin* 550 MG TAB PO SCH ×2 (08:33→20:14)
[2019-07-04] MEDS: Cyanocobalamin TAB* 500 MCG PO SCH (08:34)
[2019-07-04] MEDS: Magnesium Oxide TAB* 400 MG PO SCH ×2 (08:34→20:14)
[2019-07-04] MEDS: Labetalol TAB* 100 MG PO SCH ×2 (08:34→20:14)
[2019-07-04] MEDS: amLODIPine TAB* 5 MG PO SCH (08:35)
[2019-07-04] MEDS: Potassium Chlor TAB* 10 MEQ TAB.ER PO SCH ×2 (08:35→20:13)
[2019-07-04] MEDS: Folic Acid TAB* 1 MG PO SCH (08:35)
--- NOTE | 2019-07-04 08:35 | CONSULT ---
Consult Consult: Reason for consult: Follow up evaluation CC " I have been taking notes" 58 year old male with a history of severe alcohol use disorder presented with signs of alcohol withdrawal Patient reported that he plans to go to physical therapy to regain some strength. He reported that if 3 days is not enough he will do more , and if he is unable to abstain from alcohol he will ask for help and engage in a alcohol rehabilitation program. He noted that he was is rough shape from drinking alcohol and wasn't able to take care of himself At this time the patient noted that he wishes not to go to alcohol rehabilitation and plans to go to AA and take medication to prevent relapse. The patient denied suicidal ideation, intent or plan. Mental Status Exam APPEARANCE : 58 year old male who appears older than stated age. Patient appears disheveled. BEHAVIOR: Cooperative , calm EYE CONTACT: Fair MOVEMENTS: no abnormal movements SPEECH : Normal rate, rhythm, volume and tone. MOOD : "Better" AFFECT : Euthymic THOUGHT PROCESS: Linear and goal directed THOUGHT CONTENT: no delusions PERCEPTION: No auditory and or visual hallucinations SUICIDALITY Denied suicidal ideation, intent or plan HOMICIDALITY Denied homicidal ideation, intent or plan. Insight/judgment: Poor insight and judgment ORIENTATION: Oriented to self , year month and location Diagnosis: Alcohol use disorder, severe with current alcohol withdrawal, Wernicke- Korsakoff syndrome, substance induce depressive disorder Assessment: 58 year old male with alcohol use disorder being treated on the medical floor for alcohol withdrawal. Plan # The patient does NOT require psychiatric inpatient admission at this time # Patient continues to show improvement. He was able to complete thoughts in a purposeful linear fashion. He verbalized a rational safety plan , and the steps he would take if he started using alcohol again. # Continue Medical Management per primary team # Continue Thiamine and Vitamin B12 # Continue Remeron 7.5mg qhs for depression, sleep and appetite. # Discontinue WAM protocol for alcohol withdrawal # Patient does not require constant observation # Obtained collateral history from Kaylie his health care proxy. # Recommend Disulfiram 500mg PO daily for first week then 250mg thereafter for alcohol abstinence. LFTs in acceptable range, patient was educated about use and plans to have girlfriend monitor use. Recommend monitoring LFTs with use. #Patient was re- evaluated today and HAS the capacity to make own decisions. He was able to verbalize a choice, and understand the meaning of the information communicated to him about his condition, as well as the outcome and the consequences of accepting or refusing various treatment options. The patient was able to consider alternative treatment options. # Psychiatry will continue to follow the patient Sodium 135 mmol/L (135-145) 07/02/19 06:50 Potassium 4.4 mmol/L (3.5-5.0) 07/02/19 06:50 BUN 6 mg/dL (6-24) 07/02/19 06:50 Creatinine 0.58 mg/dL (0.67-1.17) L 07/02/19 06:50 Calcium 8.9 mg/dL (8.6-10.3) 07/02/19 06:50 Magnesium 1.7 mg/dL (1.9-2.7) L 07/02/19 06:50 AST 42 U/L (13-39) H 07/02/19 06:50 ALT 39 U/L (7-52) 07/02/19 06:50 Amlodipine Besylate (Norvasc Tab*) 10 mg PO DAILY [facility] Last Admin: 07/04/19 08:35 Dose: 10 mg Cyanocobalamin (Vitamin B12 Tab*) 1,000 mcg PO DAILY [facility] Last Admin: 07/04/19 08:34 Dose: 1,000 mcg Docusate Sodium (Colace Cap*) 100 mg PO BID PRN PRN Reason: CONSTIPATION Last Admin: 06/30/19 21:52 Dose: 100 mg Folic Acid (Folvite Tab*) 1 mg PO DAILY [facility] Last Admin: 07/04/19 08:35 Dose: 1 mg Labetalol HCl (Trandate Tab*) 100 mg PO BID [facility] Last Admin: 07/04/19 08:34 Dose: 100 mg Lactulose (Lactulose*) 30 ml PO TID [facility] Last Admin: 07/04/19 08:33 Dose: 30 ml Lorazepam (Ativan Tab(*)) 0 - 6 mg PO .PER [facility] PROTOCOL [facility]; Protocol Magnesium Oxide (Magox 400 Tab*) 400 mg PO BID [facility] Last Admin: 07/04/19 08:34 Dose: 400 mg Melatonin (Melatonin) 9 mg PO DAILY PRN PRN Reason: SLEEP Last Admin: 07/03/19 22:00 Dose: 9 mg Mirtazapine (Remeron Tab*) 7.5 mg PO BEDTIME [facility] Last Admin: 07/03/19 20:12 Dose: 7.5 mg Miscellaneous (Ativan Pyxis Carranza) 1 ea N/A .PYXIS CARRANZA PRN PRN Reason: PER PROTOCOL Multivitamins/Minerals (Theragran/Minerals Tab*) 1 tab PO DAILY [facility] Last Admin: 07/04/19 08:36 Dose: 1 tab Pto:Loteprednol Etabonate [Alrex] 0. 2% 1 drop BOTH EYES DAILY [facility] Last Admin: 07/04/19 08:33 Dose: 1 drop Potassium Chloride (Klor Con Er Tab*) 20 meq PO BID [facility] Last Admin: 07/04/19 08:35 Dose: 20 meq Primidone (Mysoline Tab(*)) 250 mg PO TID [facility] Last Admin: 07/03/19 20:12 Dose: 250 mg Propranolol HCl (Inderal Tab*) 20 mg PO QID PRN PRN Reason: .ANXIETY Rifaximin (Xifaxan*) 550 mg PO BID [facility] Last Admin: 07/04/19 08:33 Dose: 550 mg Senna (Senokot 8.6 Mg Tab*) 1 tab PO BEDTIME PRN PRN Reason: CONSTIPATION Last Admin: 06/30/19 21:52 Dose: 1 tab Thiamine HCl (Vitamin B-1 Tab*) 100 mg PO DAILY [facility] Last Admin: 07/04/19 08:36 Dose: 100 mg Tramadol HCl (Ultram*) 50 mg PO Q6H PRN PRN Reason: PAIN - MODERATE Last Admin: 07/04/19 08:36 Dose: 50 mg
[2019-07-04] MEDS: traMADol TAB* 50 MG PO PRN (08:36)
[2019-07-04] MEDS: Thiamine TAB* 100 MG TAB PO SCH (08:36)
[2019-07-04] MEDS: Multivitamins/Minerals TAB PO SCH (08:36)
[2019-07-04] MEDS ORDERED: Ondansetron ODT TAB* 4 MG SL PRN (10:45)
[2019-07-04] MEDS ORDERED: chlordiazePOXIDE CAP* 25 MG PO ONE (10:45)
[2019-07-04 12:18] LABS: ABS Basophils 0.1 10^3/ul (0-0.2); ABS Eosinophils 0.2 10^3/ul (0-0.6); ABS Lymphocytes 0.6 10^3/ul (1.0-4.8); ABS Monocytes 1.4 10^3/ul (0-0.8); Eosinophil % 3.3 %; Hematocrit 35 % (42-52); Lymphocyte % 11.5 %; Mean Corpuscular HGB Conc 35 g/dL (31-36); Mean Corpuscular Hemoglobin 33 pg (27-31); Mean Corpuscular Volume 96 fL (80-94); Mean Platelet Volume 8.7 fL (7.4-10.4); Platelet Count 197 10^3/uL (150-450); Red Blood Count 3.65 10^6 /uL (4.18-5.48); Red Cell Distribution Width 16 % (10-15); White Blood Count 5.2 10^3/uL (3.5-10.8)
[2019-07-04 12:36] LABS: Albumin 3.8 g/dL (3.2-5.2); Albumin/Globulin Ratio 1.7 (1-3); BUN/Creatinine Ratio 15.8 (8-20); Calcium 9.1 mg/dL (8.6-10.3); EGFR African American 177.7 (>60); EGFR Non-African American 146.8 (>60); Globulin 2.3 g/dL (2-4); Magnesium 1.9 mg/dL (1.9-2.7); Potassium 4.4 mmol/L (3.5-5.0); Total Bilirubin 0.5 mg/dL (0.2-1.0); Total Protein 6.1 g/dL (6.4-8.9)
[2019-07-04 14:57] LABS: Uric Acid 3.3 mg/dL (4.4-7.6)
[2019-07-04] MEDS: ACAMPROSATE 333 MG PO SCH ×2 (16:49→20:13)
[2019-07-04] MEDS: PRIMIDONE 250 MG PO SCH ×2 (17:49→20:14)
--- NOTE | 2019-07-04 18:38 | PN ---
Subjective Date of Service: 07/04/19 Interval History: Afebrile no acute events overnight. Was feeling well in AM but 1000 ryan he felt light headed, dizzy, diaphoretic, nausea. Librium 25 mg once given. some pain in left 1st toe with certain positions. States he would prefer to stay here as long as possible. Was offered bed at [facility] but insurance did not approve, was appealed to medical device. Fiance requesting IM naltrexone, however patient is on opioids at home and here in the hospital, last tramadol this AM. Records received from [facility] and Dr. Foss's office. Family History: Unchanged from Admission Social History: Unchanged from Admission Past Medical History: Unchanged from Admission Objective Active Medications: Acamprosate (Campral (Nf)) 666 mg PO TID [facility]; Protocol Last Admin: 07/04/19 16:49 Dose: 666 mg Amlodipine Besylate (Norvasc Tab*) 10 mg PO DAILY [facility] Last Admin: 07/04/19 08:35 Dose: 10 mg Cyanocobalamin (Vitamin B12 Tab*) 1,000 mcg PO DAILY [facility] Last Admin: 07/04/19 08:34 Dose: 1,000 mcg Docusate Sodium (Colace Cap*) 100 mg PO BID PRN PRN Reason: CONSTIPATION Last Admin: 06/30/19 21:52 Dose: 100 mg Folic Acid (Folvite Tab*) 1 mg PO DAILY [facility] Last Admin: 07/04/19 08:35 Dose: 1 mg Labetalol HCl (Trandate Tab*) 100 mg PO BID [facility] Last Admin: 07/04/19 08:34 Dose: 100 mg Lactulose (Lactulose*) 30 ml PO TID [facility] Last Admin: 07/04/19 13:58 Dose: 30 ml Magnesium Oxide (Magox 400 Tab*) 400 mg PO BID [facility] Last Admin: 07/04/19 08:34 Dose: 400 mg Melatonin (Melatonin) 9 mg PO DAILY PRN PRN Reason: SLEEP Last Admin: 07/03/19 22:00 Dose: 9 mg Mirtazapine (Remeron Tab*) 7.5 mg PO BEDTIME [facility] Last Admin: 07/03/19 20:12 Dose: 7.5 mg Multivitamins/Minerals (Theragran/Minerals Tab*) 1 tab PO DAILY [facility] Last Admin: 07/04/19 08:36 Dose: 1 tab Pto:Loteprednol Etabonate [Alrex] 0. 2% 1 drop BOTH EYES DAILY [facility] Last Admin: 07/04/19 08:33 Dose: 1 drop Ondansetron HCl (Zofran Odt Tab*) 4 mg SL Q6H PRN PRN Reason: NAUSEA/VOMITING Last Admin: 07/04/19 11:07 Dose: 4 mg Potassium Chloride (Klor Con Er Tab*) 20 meq PO BID [facility] Last Admin: 07/04/19 08:35 Dose: 20 meq Primidone (Mysoline Tab(*)) 250 mg PO TID [facility] Last Admin: 07/04/19 17:49 Dose: 250 mg Propranolol HCl (Inderal Tab*) 20 mg PO QID PRN PRN Reason: anxiety Rifaximin (Xifaxan*) 550 mg PO BID [facility] Last Admin: 07/04/19 08:33 Dose: 550 mg Senna (Senokot 8.6 Mg Tab*) 1 tab PO BEDTIME PRN PRN Reason: CONSTIPATION Last Admin: 06/30/19 21:52 Dose: 1 tab Thiamine HCl (Vitamin B-1 Tab*) 100 mg PO DAILY [facility] Last Admin: 07/04/19 08:36 Dose: 100 mg Vital Signs - 8 hr 07/04/19 07/04/19 07/04/19 10:33 11:07 11:08 Temperature 97.3 F Pulse Rate 77 Respiratory 20 18 18 Rate Blood Pressure 137/71 (mmHg) O2 Sat by Pulse 100 Oximetry 07/04/19 07/04/19 07/04/19 11:15 13:05 15:15 Temperature 98 F 98 F Pulse Rate 72 73 Respiratory 20 18 20 Rate Blood Pressure 115/64 128/69 (mmHg) O2 Sat by Pulse 99 96 Oximetry Oxygen Devices in Use Now: None Appearance: NAD Eyes: No Scleral Icterus Ears/Nose/Mouth/Throat: NL Teeth, Lips, Gums Neck: NL Appearance and Movements; NL JVP Respiratory: Symmetrical Chest Expansion and Respiratory Effort Cardiovascular: NL Sounds; No Murmurs; No JVD, RRR Abdominal: NL Sounds; No Tenderness; No Distention, No Hepatosplenomegaly Extremities: No Edema Skin: No Rash or Ulcers Neurological: Alert and Oriented x 3, - - no asterixis. tremor generalized. - Nutrition: Malnutrition Diagnosis/Plan Malnutrition Assessment by Registered Dietitian: Malnutrition Assessment Clinical Characteristics Chronic,Severe Malnutrition Assessment: Inadequate Oral Intake - Noted pt w/ poor intake Criteria (receiving Remeron); consumed 25% L today on clear liquid diet - Anticipate pt meeting <75% nutrient needs x1 mo (severe) Unintentional Weight Loss - Noted pt w/ wt loss per records; current wt 125lb, prev wt on record 146lb (05/2019) - 13% loss x 1 mo (severe) Malnutrition Assessment: Nutritional Supplementals/Nourishments - Will Interventions trial Ensure Clear (240kcal, 8g prot/serv) w/ B , L, and D daily to optimize kcal/prot intake; will monitor acceptance GI Related - Recommend giving antiemetic PRN; will monitor GI s/sx for impact on intake and ability to advance diet Textures Modification - No noted evidence of difficulty chewing/swallowing per chart; will monitor tolerance to regular textures and recommend MANAGER LEADERSHIP DEVELOPMENT eval as indicated. Malnutrition Assessment: Goals 1) Recommend advancing diet to regular unrestricted as able 2) Pt will tolerate diet advnacement w/o exac/ development of GI s/sx and/or difficulty chewing /swallowing 3) Adequate po intake to support lean body mass and hydration status 4) Improve fluid/electrolyte balance w/ adequate po intake and repletion PRN 5) Maintain bowel regularity w/ adequate po intake w/o development of diarrhea/constipation Result Diagrams: 07/04/19 11:59 07/04/19 11:59 Additional Lab and Data: Laboratory Tests Laboratory Results - last 24 hr 07/02/19 07/04/19 07/04/19 06:50 11:59 11:59 WBC 5.2 RBC 3.65 L Hgb 12.0 L Hct 35 L MCV 96 H MCH 33 H MCHC 35 RDW 16 H Plt Count 197 MPV 8.7 Neut % (Auto) 57.0 Lymph % (Auto) 11.5 Hoke % (Auto) 26.8 Eos % (Auto) 3.3 Baso % (Auto) 1.4 Absolute Neuts (auto) 3.0 Absolute Lymphs (auto) 0.6 L Absolute Monos (auto) 1.4 H Absolute Eos (auto) 0.2 Absolute Basos (auto) 0.1 Absolute Nucleated RBC 0.0 Nucleated RBC % 0.0 Sodium 135 136 Potassium 4.4 4.4 Chloride 102 101 Carbon Dioxide 30 29 Anion Gap 3 6 BUN 6 9 Creatinine 0.58 L 0.57 L Est GFR ( Amer) 174.1 177.7 Est GFR (Non-Af Amer) 143.9 146.8 BUN/Creatinine Ratio 10.3 15.8 Glucose 93 114 H Uric Acid 3.3 L Calcium 8.9 9.1 Magnesium 1.7 L 1.9 Total Bilirubin 0.50 0.50 AST 42 H 40 H ALT 39 41 Alkaline Phosphatase 141 H 146 H Ammonia Total Protein 5.9 L 6.1 L Albumin 3.6 3.8 Globulin 2.3 2.3 Albumin/Globulin Ratio 1.6 1.7 07/04/19 11:59 WBC RBC Hgb Hct MCV MCH MCHC RDW Plt Count MPV Neut % (Auto) Lymph % (Auto) Hoke % (Auto) Eos % (Auto) Baso % (Auto) Absolute Neuts (auto) Absolute Lymphs (auto) Absolute Monos (auto) Absolute Eos (auto) Absolute Basos (auto) Absolute Nucleated RBC Nucleated RBC % Sodium Potassium Chloride Carbon Dioxide Anion Gap BUN Creatinine Est GFR ( Amer) Est GFR (Non-Af Amer) BUN/Creatinine Ratio Glucose Uric Acid Calcium Magnesium Total Bilirubin AST ALT Alkaline Phosphatase Ammonia 54 H Total Protein Albumin Globulin Albumin/Globulin Ratio Assess/Plan/Problems-Billing Assessment: 58 yo male PMH Alcoholism, Alcoholic Encephalopathy, TB s/p isoniazide, ? 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 IPMN vs pancreatic psuedocyst? (CA-19-9 [id number]) presenting with alcohol intoxication and withdrawal. - Patient Problems (1) Alcohol withdrawal delirium Current Visit: Yes Status: Acute Priority: High Code(s): F10.231 - ALCOHOL DEPENDENCE WITH WITHDRAWAL DELIRIUM SNOMED Code(s): 8271972 Comment: -Patient had episode of diaphoresis, nausea, dizziness this AM, about 8 days out from last drink, was given one dose librium 25mg po. previously had not required Ativan since 06/30 2am. -Psych has given back his capacity -On thiamine po , vitamin B1 level was wnl 126 on 06/03 - Per CM the plan was for fpc care placement given his alcoholism and possible Wernicke's. He was denied by insurance but this has been appealed. He does not want inpatient EtOH rehab. - no longer needing 1:1 (2) Suicidal thoughts Current Visit: Yes Status: Acute Priority: Medium Code(s): R45.851 - SUICIDAL IDEATIONS SNOMED Code(s): 8962602 Comment: -resolved. -states today this was based on "flippant" comment in response to Dr. Foss telling him to not drive. - no longer on 1:1 - appreaciate Psych reqs. (3) Increased ammonia level Current Visit: No Status: Acute Code(s): R79.89 - OTHER SPECIFIED ABNORMAL FINDINGS OF BLOOD CHEMISTRY SNOMED Code(s): 319553535 Comment: xifatan, lactulose TID downtrending. (4) Moderate protein-calorie malnutrition Current Visit: No Status: Acute Code(s): E44.0 - MODERATE PROTEIN-CALORIE MALNUTRITION SNOMED Code(s): 301564289 Comment: - His weight has continued to fall in setting of alcoholism. He needs a colonsocpy along with a repeat EUS once sober 3 months. (5) Essential tremor Current Visit: No Status: Chronic Code(s): G25.0 - ESSENTIAL TREMOR SNOMED Code(s): 809222526 Comment: - Continue Primidone and propranolol (6) HTN (hypertension) Current Visit: No Status: Chronic Code(s): I10 - ESSENTIAL (PRIMARY) HYPERTENSION SNOMED Code(s): 99449077 Comment: - continue amlodipine and labetalol also on PRN propranolol for tremors but has not been getting frequently. (7) Pancreatic mass Current Visit: No Status: Chronic Comment: - was seen back in September 2017 , sent for EUS at [facility]. Records from ([facility]) and [facility] received. No biopsy obtained on EUS as thought it looked like pancreatic pseudocyst. repeat EUS was planned if sober for 3 months but he has continued to relapse. - In September 2018: CEA is 7.2 and Ca 19-9 was 7513,repeat CA 19-9 still over 4000 repeat CA19-9 today. Status and Disposition: Inpatient; waiting on fpc care options and currently appealing to insurance medical device. He is certainly very high risk for readmission given his long standing alcoholism possibly progressed to Wernicke's.
[2019-07-04] MEDS: Mirtazapine TAB* 15 MG PO SCH (20:14)
[2019-07-04] MEDS ORDERED: Acetaminophen TAB* 325 MG PO PRN (22:02)
[2019-07-04] MEDS: Melatonin 3 MG TAB PO PRN (22:12)
[2019-07-04] MEDS: Ibuprofen TAB* 600 MG PO PRN (22:25)
[2019-07-05] MEDS: Cyanocobalamin TAB* 500 MCG PO SCH (08:22)
[2019-07-05] MEDS: PRIMIDONE 250 MG PO SCH ×3 (08:22→20:09)
[2019-07-05] MEDS: Magnesium Oxide TAB* 400 MG PO SCH ×2 (08:22→20:07)
--- NOTE | 2019-07-05 08:22 | CONSULT ---
Consult Consult: Reason for consult: Follow up evaluation CC " I have a plan in place" 58 year old male with a history of severe alcohol use disorder presented with signs of alcohol withdrawal and presented with the inability to care for himself. Patient reported that he plans to go to go home. He reported that he is able to shower, eat, and do things on his own that he was unable to do before coming to the hospital. He mentioned that he has a plan in place in the form of a hierarchy to help him abstain from alcohol. Patient was able to recall conversation during his last encounter. He has a friend who went through detox and a cousin that he plans to talk to more often. The patient denied suicidal ideation, intent or plan. Mental Status Exam APPEARANCE : 58 year old male who appears older than stated age. Patient appears disheveled. BEHAVIOR: Cooperative , calm EYE CONTACT: Fair MOVEMENTS: no abnormal movements SPEECH : Normal rate, rhythm, volume and tone. MOOD : "Good" AFFECT : Euthymic THOUGHT PROCESS: Linear and goal directed THOUGHT CONTENT: no delusions PERCEPTION: No auditory and or visual hallucinations SUICIDALITY Denied suicidal ideation, intent or plan HOMICIDALITY Denied homicidal ideation, intent or plan. Insight/judgment: Poor insight and judgment ORIENTATION: Oriented to self , year month and location Diagnosis: Alcohol use disorder, severe with current alcohol withdrawal, Wernicke- Korsakoff syndrome, substance induce depressive disorder Assessment: 58 year old male with alcohol use disorder being treated on the medical floor for alcohol withdrawal. Plan # The patient does NOT require psychiatric inpatient admission at this time # Patient continues to show improvement. He is able to complete ADLs and showed a improvement in memory and concentration. He verbalized a consistent rational safety plan , and the steps he would take if he thought about using alcohol again. # Continue Medical Management per primary team # Continue Thiamine and Vitamin B12 # Continue Remeron 7.5mg qhs for depression, sleep and appetite. # Discontinued WA protocol for alcohol withdrawal # Patient does not require constant observation # Obtained collateral history from Kaylie his health care proxy. The patient was advised of the 24 hour / 7 days a week availability of the emergency room and to call 911 in the event of an emergency # Recommend Disulfiram 500mg PO daily for first week then 250mg thereafter for alcohol abstinence. LFTs in acceptable range, patient was educated about use and plans to have girlfriend monitor use. Recommend monitoring LFTs with use. #Patient was re- evaluated today and HAS the capacity to make own decisions. He was able to verbalize a choice, and understand the meaning of the information communicated to him about his condition, as well as the outcome and the consequences of accepting or refusing various treatment options. The patient was able to consider alternative treatment options. # Psychiatry will sign off. Please call or consult again if you have any further questions. Aníbal Dorman M.D Psychiatrist Sodium 136 mmol/L (135-145) 07/04/19 11:59 Potassium 4.4 mmol/L (3.5-5.0) 07/04/19 11:59 BUN 9 mg/dL (6-24) 07/04/19 11:59 Creatinine 0.57 mg/dL (0.67-1.17) L 07/04/19 11:59 Calcium 9.1 mg/dL (8.6-10.3) 07/04/19 11:59 Magnesium 1.9 mg/dL (1.9-2.7) 07/04/19 11:59 AST 40 U/L (13-39) H 07/04/19 11:59 ALT 41 U/L (7-52) 07/04/19 11:59
[2019-07-05] MEDS: Folic Acid TAB* 1 MG PO SCH (08:23)
[2019-07-05] MEDS: amLODIPine TAB* 5 MG PO SCH (08:23)
[2019-07-05] MEDS: Labetalol TAB* 100 MG PO SCH ×2 (08:23→20:08)
[2019-07-05] MEDS: RiFAXimin* 550 MG TAB PO SCH ×2 (08:23→20:08)
[2019-07-05] MEDS: Multivitamins/Minerals TAB PO SCH (08:23)
[2019-07-05] MEDS: Potassium Chlor TAB* 10 MEQ TAB.ER PO SCH ×2 (08:23→20:08)
[2019-07-05] MEDS: Thiamine TAB* 100 MG TAB PO SCH (08:23)
[2019-07-05] MEDS: ACAMPROSATE 333 MG PO SCH ×3 (08:24→20:09)
[2019-07-05] MEDS: LOTEPREDNOL ETABONATE 0.2% BOTH EYES SCH (08:25)
[2019-07-05] MEDS: Ibuprofen TAB* 600 MG PO PRN ×2 (08:30→16:12)
--- NOTE | 2019-07-05 18:46 | PN ---
Subjective Date of Service: 07/05/19 Interval History: No acute events overnight. Feels better today. Walking well, even without the cane if in his room. Just slight sweats at night. No dizziness or nausea. He has appealed his discharge and plans to return home on Wednesday AM (when his ex -fiancee is back from her Thanksgiving travel. Concerned about his DMV form which is due on Wednesday. Has appointment with PCP on Wednesday Says he is having 1 BM daily on the lactulose Family History: Unchanged from Admission Social History: Unchanged from Admission Past Medical History: Unchanged from Admission Objective Active Medications: Acamprosate (Campral (Nf)) 666 mg PO TID [facility]; Protocol Last Admin: 07/05/19 13:13 Dose: 666 mg Amlodipine Besylate (Norvasc Tab*) 10 mg PO DAILY [facility] Last Admin: 07/05/19 08:23 Dose: 10 mg Cyanocobalamin (Vitamin B12 Tab*) 1,000 mcg PO DAILY [facility] Last Admin: 07/05/19 08:22 Dose: 1,000 mcg Docusate Sodium (Colace Cap*) 100 mg PO BID PRN PRN Reason: CONSTIPATION Last Admin: 06/30/19 21:52 Dose: 100 mg Folic Acid (Folvite Tab*) 1 mg PO DAILY [facility] Last Admin: 07/05/19 08:23 Dose: 1 mg Ibuprofen (Motrin Tab*) 600 mg PO Q8H PRN PRN Reason: PAIN - MILD Last Admin: 07/05/19 16:12 Dose: 600 mg Labetalol HCl (Trandate Tab*) 100 mg PO BID [facility] Last Admin: 07/05/19 08:23 Dose: 100 mg Lactulose (Lactulose*) 30 ml PO TID [facility] Last Admin: 07/05/19 13:12 Dose: 30 ml Magnesium Oxide (Magox 400 Tab*) 400 mg PO BID [facility] Last Admin: 07/05/19 08:22 Dose: 400 mg Melatonin (Melatonin) 9 mg PO DAILY PRN PRN Reason: SLEEP Last Admin: 07/04/19 22:12 Dose: 9 mg Mirtazapine (Remeron Tab*) 7.5 mg PO BEDTIME [facility] Last Admin: 07/04/19 20:14 Dose: 7.5 mg Multivitamins/Minerals (Theragran/Minerals Tab*) 1 tab PO DAILY [facility] Last Admin: 07/05/19 08:23 Dose: 1 tab Pto:Loteprednol Etabonate [Alrex] 0. 2% 1 drop BOTH EYES DAILY [facility] Last Admin: 07/05/19 08:25 Dose: 1 drop Ondansetron HCl (Zofran Odt Tab*) 4 mg SL Q6H PRN PRN Reason: NAUSEA/VOMITING Last Admin: 07/04/19 11:07 Dose: 4 mg Potassium Chloride (Klor Con Er Tab*) 20 meq PO BID [facility] Last Admin: 07/05/19 08:23 Dose: 20 meq Primidone (Mysoline Tab(*)) 250 mg PO TID [facility] Last Admin: 07/05/19 13:13 Dose: 250 mg Propranolol HCl (Inderal Tab*) 20 mg PO QID PRN PRN Reason: anxiety Rifaximin (Xifaxan*) 550 mg PO BID [facility] Last Admin: 07/05/19 08:23 Dose: 550 mg Senna (Senokot 8.6 Mg Tab*) 1 tab PO BEDTIME PRN PRN Reason: CONSTIPATION Last Admin: 06/30/19 21:52 Dose: 1 tab Thiamine HCl (Vitamin B-1 Tab*) 100 mg PO DAILY [facility] Last Admin: 07/05/19 08:23 Dose: 100 mg Vital Signs - 8 hr 07/05/19 07/05/19 11:15 15:35 Temperature 98 F 98.3 F Pulse Rate 80 78 Respiratory 18 20 Rate Blood Pressure 125/73 130/69 (mmHg) O2 Sat by Pulse 100 100 Oximetry Oxygen Devices in Use Now: None Appearance: NAD Eyes: No Scleral Icterus Ears/Nose/Mouth/Throat: NL Teeth, Lips, Gums Neck: NL Appearance and Movements; NL JVP, Trachea Midline Respiratory: Symmetrical Chest Expansion and Respiratory Effort, Clear to Auscultation Cardiovascular: NL Sounds; No Murmurs; No JVD, RRR Abdominal: NL Sounds; No Tenderness; No Distention, No Hepatosplenomegaly Lymphatic: No Cervical Adenopathy Extremities: No Edema Neurological: Alert and Oriented x 3, - - no asterixis Nutrition: Taking PO's - Nutrition: Malnutrition Diagnosis/Plan Malnutrition Assessment by Registered Dietitian: Malnutrition Assessment Clinical Characteristics Chronic,Severe Malnutrition Assessment: Inadequate Oral Intake - Noted pt w/ poor intake Criteria (receiving Remeron); consumed 25% L today on clear liquid diet - Anticipate pt meeting <75% nutrient needs x1 mo (severe) Unintentional Weight Loss - Noted pt w/ wt loss per records; current wt 125lb, prev wt on record 146lb (05/2019) - 13% loss x 1 mo (severe) Malnutrition Assessment: Nutritional Supplementals/Nourishments - Will Interventions trial Ensure Clear (240kcal, 8g prot/serv) w/ B , L, and D daily to optimize kcal/prot intake; will monitor acceptance GI Related - Recommend giving antiemetic PRN; will monitor GI s/sx for impact on intake and ability to advance diet Textures Modification - No noted evidence of difficulty chewing/swallowing per chart; will monitor tolerance to regular textures and recommend VP PATIENT eval as indicated. Malnutrition Assessment: Goals 1) Recommend advancing diet to regular unrestricted as able 2) Pt will tolerate diet advnacement w/o exac/ development of GI s/sx and/or difficulty chewing /swallowing 3) Adequate po intake to support lean body mass and hydration status 4) Improve fluid/electrolyte balance w/ adequate po intake and repletion PRN 5) Maintain bowel regularity w/ adequate po intake w/o development of diarrhea/constipation Result Diagrams: 07/04/19 11:59 07/04/19 11:59 Additional Lab and Data: Laboratory Tests Assess/Plan/Problems-Billing Assessment: 58 yo male PMH Alcoholism, Alcoholic Encephalopathy, TB s/p isoniazide, ? 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 IPMN vs pancreatic psuedocyst? (CA-19-9 [id number] now on repeat 194) presenting with alcohol intoxication and withdrawal. - Patient Problems (1) Alcohol withdrawal delirium Current Visit: Yes Status: Acute Priority: High Code(s): F10.231 - ALCOHOL DEPENDENCE WITH WITHDRAWAL DELIRIUM SNOMED Code(s): 0554419 Comment: -no significant symptoms today. Had episode of diaphoresis, nausea, dizziness 07/05 AM, about 8 days out from last drink, and was given one dose librium 25mg po. previously had not required Ativan since 06/30 2am. -Psych has given back his capacity -On thiamine po , vitamin B1 level was wnl 126 on 06/03 - Per CM the plan was for senior care care placement given his alcoholism and possible Wernicke's. He was denied by insurance. He has since appealed his discharge. He does not want inpatient EtOH rehab. - no longer needing 1:1 (2) Suicidal thoughts Current Visit: Yes Status: Acute Priority: Medium Code(s): R45.851 - SUICIDAL IDEATIONS SNOMED Code(s): 9365756 Comment: -resolved. -states today this was based on "flippant" comment in response to Dr. Foss telling him to not drive. - no longer on 1:1 - appreaciate Psych reqs. (3) Increased ammonia level Current Visit: No Status: Acute Code(s): R79.89 - OTHER SPECIFIED ABNORMAL FINDINGS OF BLOOD CHEMISTRY SNOMED Code(s): 849839440 Comment: xifatan, lactulose TID downtrending. (4) Moderate protein-calorie malnutrition Current Visit: No Status: Acute Code(s): E44.0 - MODERATE PROTEIN-CALORIE MALNUTRITION SNOMED Code(s): 571425619 Comment: - His weight has continued to fall in setting of alcoholism. He needs a colonsocpy along with a repeat EUS once sober 3 months. (5) Essential tremor Current Visit: No Status: Chronic Code(s): G25.0 - ESSENTIAL TREMOR SNOMED Code(s): 061210670 Comment: - Continue Primidone and propranolol (6) HTN (hypertension) Current Visit: No Status: Chronic Code(s): I10 - ESSENTIAL (PRIMARY) HYPERTENSION SNOMED Code(s): 15497165 Comment: - continue amlodipine and labetalol also on PRN propranolol for tremors but has not been getting frequently. (7) Pancreatic mass Current Visit: No Status: Chronic Comment: - was seen back in September 2017 , sent for EUS at [facility]. Records from GI ([facility]) and [place] received. No biopsy obtained on EUS as thought it looked like pancreatic pseudocyst. repeat EUS was planned if sober for 3 months but he has continued to relapse. - In September 2018: CEA is 7.2 and Ca 19-9 was 7513,repeat CA 19-9 still over 4000 repeat CA19-9 today. Status and Disposition: Inpatient; He is appealing his discharge currently. He is certainly very high risk for readmission given his long standing alcoholism possibly progressed to Wernicke's.
[2019-07-05] MEDS: Mirtazapine TAB* 15 MG PO SCH (20:08)
[2019-07-05] MEDS: Melatonin 3 MG TAB PO PRN (21:50)
[2019-07-06] MEDS: PRIMIDONE 250 MG PO SCH ×3 (08:54→20:11)
[2019-07-06] MEDS: ACAMPROSATE 333 MG PO SCH ×3 (08:54→20:10)
[2019-07-06] MEDS: Labetalol TAB* 100 MG PO SCH ×2 (08:55→20:10)
[2019-07-06] MEDS: Magnesium Oxide TAB* 400 MG PO SCH ×2 (08:55→20:11)
[2019-07-06] MEDS: amLODIPine TAB* 5 MG PO SCH (08:55)
[2019-07-06] MEDS: Thiamine TAB* 100 MG TAB PO SCH (08:55)
[2019-07-06] MEDS: Folic Acid TAB* 1 MG PO SCH (08:55)
[2019-07-06] MEDS: Cyanocobalamin TAB* 500 MCG PO SCH (08:57)
[2019-07-06] MEDS: Potassium Chlor TAB* 10 MEQ TAB.ER PO SCH ×2 (08:57→20:12)
[2019-07-06] MEDS: Multivitamins/Minerals TAB PO SCH (08:57)
[2019-07-06] MEDS: RiFAXimin* 550 MG TAB PO SCH ×2 (08:57→20:12)
[2019-07-06] MEDS: LOTEPREDNOL ETABONATE 0.2% BOTH EYES SCH (08:57)
[2019-07-06] MEDS: Ibuprofen TAB* 600 MG PO PRN ×2 (11:04→20:12)
--- NOTE | 2019-07-06 14:46 | PN ---
Subjective Date of Service: 07/06/19 Interval History: Feeling great, ambulating well, no nausea or abdominal pain. 2 BMs on the lactulose. Still deciding if he will stay alone in his apartment or try to move in with his Sister in [place] Family History: Unchanged from Admission Social History: Unchanged from Admission Past Medical History: Unchanged from Admission Objective Active Medications: Acamprosate (Campral (Nf)) 666 mg PO TID [facility]; Protocol Last Admin: 07/06/19 08:54 Dose: 666 mg Amlodipine Besylate (Norvasc Tab*) 10 mg PO DAILY [facility] Last Admin: 07/06/19 08:55 Dose: 10 mg Cyanocobalamin (Vitamin B12 Tab*) 1,000 mcg PO DAILY [facility] Last Admin: 07/06/19 08:57 Dose: 1,000 mcg Docusate Sodium (Colace Cap*) 100 mg PO BID PRN PRN Reason: CONSTIPATION Last Admin: 06/30/19 21:52 Dose: 100 mg Folic Acid (Folvite Tab*) 1 mg PO DAILY [facility] Last Admin: 07/06/19 08:55 Dose: 1 mg Ibuprofen (Motrin Tab*) 600 mg PO Q8H PRN PRN Reason: PAIN - MILD Last Admin: 07/06/19 11:04 Dose: 600 mg Labetalol HCl (Trandate Tab*) 100 mg PO BID [facility] Last Admin: 07/06/19 08:55 Dose: 100 mg Lactulose (Lactulose*) 30 ml PO TID [facility] Last Admin: 07/06/19 08:56 Dose: 30 ml Magnesium Oxide (Magox 400 Tab*) 400 mg PO BID [facility] Last Admin: 07/06/19 08:55 Dose: 400 mg Melatonin (Melatonin) 9 mg PO DAILY PRN PRN Reason: SLEEP Last Admin: 07/05/19 21:50 Dose: 9 mg Mirtazapine (Remeron Tab*) 7.5 mg PO BEDTIME [facility] Last Admin: 07/05/19 20:08 Dose: 7.5 mg Multivitamins/Minerals (Theragran/Minerals Tab*) 1 tab PO DAILY [facility] Last Admin: 07/06/19 08:57 Dose: 1 tab Pto:Loteprednol Etabonate [Alrex] 0. 2% 1 drop BOTH EYES DAILY [facility] Last Admin: 07/06/19 08:57 Dose: 1 drop Ondansetron HCl (Zofran Odt Tab*) 4 mg SL Q6H PRN PRN Reason: NAUSEA/VOMITING Last Admin: 07/04/19 11:07 Dose: 4 mg Potassium Chloride (Klor Con Er Tab*) 20 meq PO BID [facility] Last Admin: 07/06/19 08:57 Dose: 20 meq Primidone (Mysoline Tab(*)) 250 mg PO TID [facility] Last Admin: 07/06/19 08:54 Dose: 250 mg Propranolol HCl (Inderal Tab*) 20 mg PO QID PRN PRN Reason: anxiety Rifaximin (Xifaxan*) 550 mg PO BID [facility] Last Admin: 07/06/19 08:57 Dose: 550 mg Senna (Senokot 8.6 Mg Tab*) 1 tab PO BEDTIME PRN PRN Reason: CONSTIPATION Last Admin: 06/30/19 21:52 Dose: 1 tab Thiamine HCl (Vitamin B-1 Tab*) 100 mg PO DAILY [facility] Last Admin: 07/06/19 08:55 Dose: 100 mg Vital Signs - 8 hr 07/06/19 07/06/19 07/06/19 08:00 08:09 11:13 Temperature 97.7 F 98 F Pulse Rate 78 79 Respiratory 16 16 16 Rate Blood Pressure 137/72 121/66 (mmHg) O2 Sat by Pulse 99 99 Oximetry 07/06/19 11:20 Temperature Pulse Rate Respiratory 16 Rate Blood Pressure (mmHg) O2 Sat by Pulse Oximetry Oxygen Devices in Use Now: None Appearance: NAD Ears/Nose/Mouth/Throat: NL Teeth, Lips, Gums Neck: NL Appearance and Movements; NL JVP Respiratory: Symmetrical Chest Expansion and Respiratory Effort, Clear to Auscultation Cardiovascular: NL Sounds; No Murmurs; No JVD, RRR Abdominal: NL Sounds; No Tenderness; No Distention, No Hepatosplenomegaly Lymphatic: No Axillary Adenopathy Skin: No Rash or Ulcers Neurological: Alert and Oriented x 3, - - no asterixis Nutrition: Taking PO's - Nutrition: Malnutrition Diagnosis/Plan Malnutrition Assessment by Registered Dietitian: Malnutrition Assessment Clinical Characteristics Chronic,Severe Malnutrition Assessment: Inadequate Oral Intake - Noted pt w/ poor intake Criteria (receiving Remeron); consumed 25% L today on clear liquid diet - Anticipate pt meeting <75% nutrient needs x1 mo (severe) Unintentional Weight Loss - Noted pt w/ wt loss per records; current wt 125lb, prev wt on record 146lb (05/2019) - 13% loss x 1 mo (severe) Malnutrition Assessment: Nutritional Supplementals/Nourishments - Will Interventions trial Ensure Clear (240kcal, 8g prot/serv) w/ B , L, and D daily to optimize kcal/prot intake; will monitor acceptance GI Related - Recommend giving antiemetic PRN; will monitor GI s/sx for impact on intake and ability to advance diet Textures Modification - No noted evidence of difficulty chewing/swallowing per chart; will monitor tolerance to regular textures and recommend DRAINMAN eval as indicated. Malnutrition Assessment: Goals 1) Recommend advancing diet to regular unrestricted as able 2) Pt will tolerate diet advnacement w/o exac/ development of GI s/sx and/or difficulty chewing /swallowing 3) Adequate po intake to support lean body mass and hydration status 4) Improve fluid/electrolyte balance w/ adequate po intake and repletion PRN 5) Maintain bowel regularity w/ adequate po intake w/o development of diarrhea/constipation Result Diagrams: 07/04/19 11:59 07/04/19 11:59 Additional Lab and Data: Laboratory Tests Laboratory Results - last 24 hr 07/04/19 11:59 CA 19-9 Antigen 194 H Assess/Plan/Problems-Billing Assessment: 58 yo male PMH Alcoholism, Alcoholic Encephalopathy, TB s/p isoniazide, ? 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 IPMN vs pancreatic psuedocyst? (CA-19-9 [id number] now on repeat 194) presenting with alcohol intoxication and withdrawal. - Patient Problems (1) Alcohol withdrawal delirium Current Visit: Yes Status: Acute Priority: High Code(s): F10.231 - ALCOHOL DEPENDENCE WITH WITHDRAWAL DELIRIUM SNOMED Code(s): 3696060 Comment: -no significant symptoms today. Feeling great. Had episode of diaphoresis, nausea, dizziness 07/05 AM, about 8 days out from last drink, and was given one dose librium 25mg po. previously had not required Ativan since 2am. -Psych has given back his capacity -On thiamine po , vitamin B1 level was wnl 126 on 06/03 - Per CM the plan was for [facility] [employer] intermediary care placement given his alcoholism and possible Wernicke's. He was denied by insurance. He has since appealed his discharge. He does not want inpatient EtOH rehab. - no longer needing 1:1 (2) Suicidal thoughts Current Visit: Yes Status: Acute Priority: Medium Code(s): R45.851 - SUICIDAL IDEATIONS SNOMED Code(s): 0142617 Comment: -resolved. -states today this was based on "flippant" comment in response to Dr. Foss telling him to not drive. - no longer on 1:1 - appreaciate Psych reqs. (3) Increased ammonia level Current Visit: No Status: Acute Code(s): R79.89 - OTHER SPECIFIED ABNORMAL FINDINGS OF BLOOD CHEMISTRY SNOMED Code(s): 580221413 Comment: xifatan, lactulose TID. Having BMs, no asterxis. downtrending on last check. (4) Moderate protein-calorie malnutrition Current Visit: No Status: Acute Code(s): E44.0 - MODERATE PROTEIN-CALORIE MALNUTRITION SNOMED Code(s): 167404729 Comment: - His weight has continued to fall in setting of alcoholism. He needs a colonsocpy along with a repeat EUS once sober 3 months. (5) Essential tremor Current Visit: No Status: Chronic Code(s): G25.0 - ESSENTIAL TREMOR SNOMED Code(s): 307472581 Comment: - Continue Primidone and propranolol (6) HTN (hypertension) Current Visit: No Status: Chronic Code(s): I10 - ESSENTIAL (PRIMARY) HYPERTENSION SNOMED Code(s): 53186187 Comment: - continue amlodipine and labetalol also on PRN propranolol for tremors but has not been getting frequently. (7) Pancreatic mass Current Visit: No Status: Chronic Comment: - was seen back in September 2017 , sent for EUS at [facility]. Records from GI ([facility]) and [facility] received. No biopsy obtained on EUS as thought it looked like pancreatic pseudocyst. repeat EUS was planned if sober for 3 months but he has continued to relapse. - In September 2018: CEA is 7.2 and Ca 19-9 was 7513,repeat CA 19-9 still over 4000 repeat CA19-9 today. Status and Disposition: Inpatient; He is appealing his discharge currently but would voluntarily leave on 07/07. He is certainly very high risk for readmission given his long standing alcoholism possibly progressed to Wernicke's.
[2019-07-06] MEDS: Mirtazapine TAB* 15 MG PO SCH (20:10)
[2019-07-06] MEDS: Melatonin 3 MG TAB PO PRN (21:32)
[2019-07-06] MEDS ORDERED: Temazepam CAP* 15 MG PO ONE (23:11)
[2019-07-07] MEDS: ACAMPROSATE 333 MG PO SCH (09:37)
[2019-07-07] MEDS: LOTEPREDNOL ETABONATE 0.2% BOTH EYES SCH (09:38)
[2019-07-07] MEDS: Folic Acid TAB* 1 MG PO SCH (09:39)
[2019-07-07] MEDS: amLODIPine TAB* 5 MG PO SCH (09:39)
[2019-07-07] MEDS: Thiamine TAB* 100 MG TAB PO SCH (09:39)
[2019-07-07] MEDS: PRIMIDONE 250 MG PO SCH (09:39)
[2019-07-07] MEDS: Magnesium Oxide TAB* 400 MG PO SCH (09:39)
[2019-07-07] MEDS: Potassium Chlor TAB* 10 MEQ TAB.ER PO SCH (09:39)
[2019-07-07] MEDS: Ibuprofen TAB* 600 MG PO PRN (09:39)
[2019-07-07] MEDS: Labetalol TAB* 100 MG PO SCH (09:41)
[2019-07-07] MEDS: Multivitamins/Minerals TAB PO SCH (09:42)
[2019-07-07] MEDS: RiFAXimin* 550 MG TAB PO SCH (09:42)
[2019-07-07] MEDS: Cyanocobalamin TAB* 500 MCG PO SCH (09:42)
[2019-07-07 13:17] VITALS: BP 126/74
--- NOTE | 2019-07-07 15:18 | DS ---
DISCHARGE SUMMARY: DATE OF ADMISSION: 06/27/19 DATE OF DISCHARGE: 07/07/19 ADMITTING PROVIDER: Karmen Maldonado MD ATTENDING PHYSICIAN ON DAY OF DISCHARGE: Buddy Holguin MD PRIMARY CARE PROVIDER: Dr. Hartley. OUTPATIENT FIRST COAT OPERATOR: Dr. Foss. CHIEF COMPLAINT: Alcohol intoxication, reported suicidal threats. PRINCIPAL DIAGNOSES: Alcoholism with acute intoxication, complicated with withdrawal, with background of hepatic encephalopathy, possible thiamine deficiency. 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 He was seen by Dr. Foss in clinic on the day of admission and after Dr. 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 He was admitted to the general medicine floor and evaluated by Psychiatry, initially required one-to-one. He was placed on WAM monitoring and his last dose of Ativan was on 06/29/19. He was started eventually back on lactulose, which he has intermittently used in the past. A lot of collateral was provided by his ex-fiancee, Sol, who advocated strongly for the patient to be admitted for further rehabilitation. The patient physically improved over his long stay and was able to ambulate progressively more steadily and did not qualify for further physical therapy services. As such, he was deemed stable for discharge after his insurance would not cover the offered bed at [facility]; this was found out on 07/04/19 in the afternoon. He then appealed his discharge to home in the interim. Reportedly Sol also felt like she would find him once she returned back on Saturday 07/07 from her Thanksgiving travel if he had been discharged. The patient is a high utilizer given his multiple readmissions for alcohol abuse to both inpatient and emergency room. He was not eligible to be started on IM naltrexone given his tramadol use in the hospital, but was started on acamprosate and on discharge he was started on Antabuse as well. Medical records were requested from [facility] given his pancreatic mass earlier in the spring with elevated CA 19-9 levels as high as 4000 to 7000. These were obtained and it was thought this represented a pseudocyst and notably no biopsy was obtained at that time with a plan for repeat EUS in 3 months after sobriety, which he never managed to achieve. He was also recommended to get colonoscopy, which he has never had, but also could not obtain sobriety. He complained of some unintentional weight loss. CA 19-9 antigen was rechecked and was markedly lower, but still elevated at 194. Imaging studies included a CT brain on 06/28/19, which demonstrated no acute intracranial process. There is stigmata of old left basal ganglia hematoma. Last liver function tests on 07/04/19 showed AST of 40 compared to 145 on admission; ALT of 41 compared to 62 on admission; total bilirubin 0.5, peak was 1.4 on 06/27/19. His INR was 0.90. Platelets initially 56 on admission, improved to 197 on 07/04/19. His potassium was initially low at 2.8 and he was given potassium supplementation. Magnesium was also low at 1.6 and he was given magnesium repletion. The patient refused any transfer to inpatient alcohol or substance abuse treatment center given his history in the past. He does plan to follow up with his relatively recently established private therapist and obtain additional strengthening and physical therapy [facility] [place] DISCHARGE MEDICATIONS: Include: 1. Acamprosate 666 mg p.o. t.i.d. (new). 2. Amlodipine 10 mg daily. 3. Disulfiram 250 mg tabs, 500 mg daily for the first 7 days, then 250 mg daily thereafter (new). 4. Folic acid 800 mcg p.o. daily. 5. Ibuprofen 400 mg p.o. q.6 hours p.r.n. 6. Labetalol 100 mg p.o. b.i.d. 7. Lactobacillus 1 tab p.o. b.i.d. 8. Lactulose 30 mL initially b.i.d., but then titrate to 2 to 3 soft bowel movements a day (new). 9. Lidocaine patch 5%. 10. Loteprednol etabonate (Alrex) 1 drop both eyes daily. 11. Magnesium oxide 400 mg p.o. b.i.d. 12. Mirtazapine 7.5 mg p.o. at bedtime (new). 13. Multivitamin 1 tablet p.o. daily. 14. Primidone 250 mg p.o. t.i.d. 15. Propranolol 20 mg p.o. 4 times a day p.r.n. 16. Rifaximin 550 mg p.o. b.i.d. 17. Tadalafil 5 mg p.o. q.36 hours p.r.n. 18. Testosterone cypionate 200 mg IM weekly. 19. Thiamine 100 mg p.o. daily. FOLLOWUP: Please follow up with Dr. Hartley. He has an appointment on . The patient is eager to find out if Dr. Hartley agrees with his driving restriction. 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 Please follow up with Dr. Hamzah Foss and other [facility] monitoring analyst for colonoscopy and EUS respectively. DISCHARGE DIET: Heart-healthy. Strict avoidance of alcohol is critical for the patient's health. DISPOSITION: Home. CONDITION: Guarded. TIME SPENT ON DISCHARGE: 50 minutes. [id number]/CPS #: [id number] HOLLY
== END 2019-07-07 11:46 | disposition home or self-care (01) | DRG 775 ==
LOC: ED 14:28 → MEDTELE 06-27 04:27 → UNDOADMIN 06-27 06:23
PROVIDERS: ADMIT Student in an Organized Health Care Education/Training Program; ATTEND Internal Medicine
DX: F10.231 Alcohol dependence with withdrawal delirium (principal); E51.9 Thiamine deficiency, unspecified; R45.851 Suicidal ideations; K86.3 Pseudocyst of pancreas; E44.0 Moderate protein-calorie malnutrition; Z68.1 Body mass index [BMI] 19.9 or less, adult; F10.229 Alcohol dependence with intoxication, unspecified; K70.40 Alcoholic hepatic failure without coma; I10 Essential (primary) hypertension; Y90.8 Blood alcohol level of 240 mg/100 ml or more; G25.0 Essential tremor; R79.89 Other specified abnormal findings of blood chemistry; F41.9 Anxiety disorder, unspecified; F32.9 Major depressive disorder, single episode, unspecified; E87.6 Hypokalemia; F10.259 Alcohol dependence with alcohol-induced psychotic disorder, unspecified; F10.24 Alcohol dependence with alcohol-induced mood disorder; Z86.73 Personal history of transient ischemic attack (TIA), and cerebral infarction without residual deficits; Z79.899 Other long term (current) drug therapy; Z88.0 Allergy status to penicillin
CPT/HCPCS: 36415; 70450; 80048; 80053; 80307; 80320; 80329; 81003; 81015; 82140; 82570; 83735; 83935; 84300; 84443; 84550; 85025; 85610; 86301; 93005; 99284; A9270-GY; G0480; J2060; J3411; J3475; J3480

== ENCOUNTER 2019-10-05 20:31 | Inpatient (IN) | payer BC ==
--- OUTSIDE RECORDS SUMMARY | 2019-10-05 20:53 | XMS REPORT ---
:1960 Author Organization [facility] Care Team Providers Name Role Phone Unavailable [...] Result Comments Laboratory Studies 2019-03-01 05:54:00 Identifier [id number] Result Time Unknown 2019-03-01 05:54:00 Test Item Value Reference Range Comments Unknown (test code = 2951-2) 136 mmol/L Unknown 135-145 F Ordering Physician UnknownLaboratory Xowecvr1501-05-05 05:54:00Identifier [id number]- 6 Result Time 2019-03-01 05:54:00Unknown Test Item Value Reference Range Comments Unknown (test code = 2823-3) 4.4 mmol/L Unknown 3.5-5.0 F Ordering Physician UnknownLaboratory Vydvgpb7030-70-33 05:54:00Identifier [id number]- 6 Result Time 2019-03-01 05:54:00Unknown Test Item Value Reference Range Comments Unknown (test code = 98252-4) 2.5 mg/dL Unknown 1.9-2.7 F Ordering Physician UnknownLaboratory Rpbqsjk8582-00-14 05:54:00Identifier [id number]- 6 Result Time 2019-03-01 05:54:00Unknown Test Item Value Reference Range Comments Unknown (test code = 2345-7) 95 mg/dL Unknown 70-100 F Ordering Physician UnknownLaboratory Ozjwmsk9562-91-19 05:54:00Identifier 28754- 6 Result Time 2019-03-01 05:54:00Unknown Test Item Value Reference Range Comments Unknown (test code = 64844-8) 128.5 Unknown Unknown F Ordering Physician UnknownLaboratory Zcqhihw9027-07-92 05:54:00Identifier 32130- 6 Result Time 2019-03-01 05:54:00Unknown Test Item Value Reference Range Comments Unknown (test code = NullTestCode) 155.4 Unknown Unknown F Ordering Physician UnknownLaboratory Jewzgvc1435-34-06 05:54:00Identifier [id number]- 6 Result Time 2019-03-01 05:54:00Unknown Test Item Value Reference Range Comments Unknown (test code = 2160-0) 0.64 mg/dL Unknown 0.67-1.17 F Ordering Physician UnknownLaboratory Fkzycoc1782-31-13 05:54:00Identifier 76024- 6 Result Time 2019-03-01 05:54:00Unknown Test Item Value Reference Range Comments Unknown (test code = 2075-0) 102 mmol/L Unknown 101-111 F Ordering Physician UnknownLaboratory Ntxujil5133-95-94 05:54:00Identifier 27806- 6 Result Time 2019-03-01 05:54:00Unknown Test Item Value Reference Range Comments Unknown (test code = 2028-9) 29 mmol/L Unknown 22-32 F Ordering Physician UnknownLaboratory Clickkb1358-95-59 05:54:00Identifier 64004- 6 Result Time 2019-03-01 05:54:00Unknown Test Item Value Reference Range Comments Unknown (test code = 16058-9) 8.7 mg/dL Unknown 8.6-10.3 F Ordering Physician UnknownLaboratory Sepaffr0545-70-74 05:54:00Identifier 84356- 6 Result Time 2019-03-01 05:54:00Unknown Test Item Value Reference Range Comments Unknown (test code = 3094-0) 18 mg/dL Unknown 6-24 F Ordering Physician UnknownLaboratory Fvwapab6734-64-83 05:54:00Identifier 06020- 6 Result Time 2019-03-01 05:54:00Unknown Test Item Value Reference Range Comments Unknown (test code = 3097-3) 28.1 Unknown 8-20 F Ordering Physician UnknownLaboratory Iykhugt5047-05-74 05:54:00Identifier 14258- 6 Result Time 2019-03-01 05:54:00Unknown Test Item Value Reference Range Comments Unknown (test code = 78442-0) 5 mmol/L Unknown 2-11 F Ordering Physician UnknownLaboratory Kjspsnv6394-06-12 08:50:00Identifier 15045- 6 Result Time 2019-02-27 08:50:00Unknown Test Item Value Reference Range Comments Unknown (test code = 92809-9) 5.2 10^3/uL Unknown 3.5-10.8 F Ordering Physician UnknownLaboratory Iyrxquz7983-19-44 08:50:00Identifier 72169- 6 Result Time 2019-02-27 08:50:00Unknown Test Item Value Reference Range Comments Unknown (test code = 788-0) 15 % Unknown 10-15 F Ordering Physician UnknownLaboratory Fiurukh0633-62-71 08:50:00Identifier 70793- 6 Result Time 2019-02-27 08:50:00Unknown Test Item Value Reference Range Comments Unknown (test code = 789-8) 3.43 10^6 /uL Unknown 4.18-5.48 F Ordering Physician UnknownLaboratory Ajevhso9357-11-25 08:50:00Identifier 46375- 6 Result Time 2019-02-27 08:50:00Unknown Test Item Value Reference Range Comments Unknown (test code = 777-3) 144 10^3/uL Unknown 150-450 F Ordering Physician UnknownLaboratory Evlbllm7888-18-02 08:50:00Identifier 91855- 6 Result Time 2019-02-27 08:50:00Unknown Test Item Value Reference Range Comments Unknown (test code = 81183-0) 7.9 fL Unknown 7.4-10.4 F Ordering Physician UnknownLaboratory Jebhaub0293-67-17 08:50:00Identifier 83056- 6 Result Time 2019-02-27 08:50:00Unknown Test Item Value Reference Range Comments Unknown (test code = 787-2) 97 fL Unknown 80-94 F Ordering Physician UnknownLaboratory Fctpjrz2447-78-23 08:50:00Identifier 21355- 6 Result Time 2019-02-27 08:50:00Unknown Test Item Value Reference Range Comments Unknown (test code = 786-4) 34 g/dL Unknown 31-36 F Ordering Physician UnknownLaboratory Slvshmk0249-77-59 08:50:00Identifier 66205- 6 Result Time 2019-02-27 08:50:00Unknown Test Item Value Reference Range Comments Unknown (test code = 785-6) 33 pg Unknown 27-31 F Ordering Physician UnknownLaboratory Opcnjoj3596-97-68 08:50:00Identifier 84866- 6 Result Time 2019-02-27 08:50:00Unknown Test Item Value Reference Range Comments Unknown (test code = 718-7) 11.4 g/dL Unknown 14.0-18.0 F Ordering Physician UnknownLaboratory Dphtxtc3665-04-08 08:50:00Identifier 99686- 6 Result Time 2019-02-27 08:50:00Unknown Test Item Value Reference Range Comments Unknown (test code = 4544-3) 33 % Unknown 42-52 F Ordering Physician UnknownLaboratory Ldmicke5627-75-63 05:21:00Identifier 25071- 6 Result Time 2019-02-26 05:21:00Unknown Test Item Value Reference Range Comments Unknown (test code = 2885-2) 6.1 g/dL Unknown 6.4-8.9 F Ordering Physician UnknownLaboratory Gwyndtk2280-60-24 05:21:00Identifier 61276- 6 Result Time 2019-02-26 05:21:00Unknown Test Item Value Reference Range Comments Unknown (test code = 1975-2) 0.90 mg/dL Unknown 0.2-1.0 F Ordering Physician UnknownLaboratory Bmkyoqr6670-72-60 05:21:00Identifier 54241- 6 Result Time 2019-02-26 05:21:00Unknown Test Item Value Reference Range Comments Unknown (test code = 2777-1) 3.7 mg/dL Unknown 2.5-5.0 F Ordering Physician UnknownLaboratory Aukkgex7863-14-82 05:21:00Identifier 31627- 6 Result Time 2019-02-26 05:21:00Unknown Test Item Value Reference Range Comments Unknown (test code = 1971-1) 0.6 mg/dL Unknown 0.3-1.0 F Ordering Physician UnknownLaboratory Jgdtpde5664-35-72 05:21:00Identifier 74157- 6 Result Time 2019-02-26 05:21:00Unknown Test Item Value Reference Range Comments Unknown (test code = NullTestCode) 2.5 g/dL Unknown 2-4 F Ordering Physician UnknownLaboratory Cuqgozq1679-92-37 05:21:00Identifier 90802- 6 Result Time 2019-02-26 05:21:00Unknown Test Item Value Reference Range Comments Unknown (test code = 1968-7) 0.30 mg/dL Unknown 0.03-0.18 F Ordering Physician UnknownLaboratory Ntjouyd8344-97-49 05:21:00Identifier 52773- 6 Result Time 2019-02-26 05:21:00Unknown Test Item Value Reference Range Comments Unknown (test code = 1920-8) 112 U/L Unknown 13-39 F Ordering Physician UnknownLaboratory Xwpubbk9947-03-22 05:21:00Identifier 26601- 6 Result Time 2019-02-26 05:21:00Unknown Test Item Value Reference Range Comments Unknown (test code = 6768-6) 342 U/L Unknown 34-104 F Ordering Physician UnknownLaboratory Qgtgwhb2402-70-37 05:21:00Identifier 49112- 6 Result Time 2019-02-26 05:21:00Unknown Test Item Value Reference Range Comments Unknown (test code = 1759-0) 1.4 Unknown 1-3 F Ordering Physician UnknownLaboratory Wyxyrrb5048-09-04 05:21:00Identifier 14754- 6 Result Time 2019-02-26 05:21:00Unknown Test Item Value Reference Range Comments Unknown (test code = 28055-4) 3.6 g/dL Unknown 3.2-5.2 F Ordering Physician UnknownLaboratory Wineljh1076-73-78 05:21:00Identifier 73182- 6 Result Time 2019-02-26 05:21:00Unknown Test Item Value Reference Range Comments Unknown (test code = 1742-6) 133 U/L Unknown 7-52 F Ordering Physician UnknownLaboratory Huvbtfw8111-12-85 05:21:00Identifier 74237- 6 Result Time 2019-02-26 05:21:00Unknown Test Item Value Reference Range Comments Unknown (test code = 71233-2) 0.1 Unknown Unknown F Ordering Physician UnknownLaboratory Ssijido6989-52-65 05:21:00Identifier 47059- 6 Result Time 2019-02-26 05:21:00Unknown Test Item Value Reference Range Comments Unknown (test code = 771-6) 0.0 10^3/ul Unknown Unknown F Ordering Physician UnknownLaboratory Dzyejhg3573-93-04 05:21:00Identifier 45356- 6 Result Time 2019-02-26 05:21:00Unknown Test Item Value Reference Range Comments Unknown (test code = 770-8) 62.9 % Unknown Unknown F Ordering Physician UnknownLaboratory Ekmijue0885-27-50 05:21:00Identifier 14807- 6 Result Time 2019-02-26 05:21:00Unknown Test Item Value Reference Range Comments Unknown (test code = 5905-5) 16.4 % Unknown Unknown F Ordering Physician UnknownLaboratory Vsnbpyn9530-51-83 05:21:00Identifier 48810- 6 Result Time 2019-02-26 05:21:00Unknown Test Item Value Reference Range Comments Unknown (test code = 736-9) 16.5 % Unknown Unknown F Ordering Physician UnknownLaboratory Pkrxxrx7894-91-25 05:21:00Identifier 70058- 6 Result Time 2019-02-26 05:21:00Unknown Test Item Value Reference Range Comments Unknown (test code = 713-8) 3.4 % Unknown Unknown F Ordering Physician UnknownLaboratory Xnrjjwb7989-73-35 05:21:00Identifier 47659- 6 Result Time 2019-02-26 05:21:00Unknown Test Item Value Reference Range Comments Unknown (test code = 706-2) 0.8 % Unknown Unknown F Ordering Physician UnknownLaboratory Lwmvqnd1257-59-41 05:21:00Identifier 05747- 6 Result Time 2019-02-26 05:21:00Unknown Test Item Value Reference Range Comments Unknown (test code = UXL8109) 2.6 10^3/ul Unknown 1.5-7.7 F Ordering Physician UnknownLaboratory Gdmfylt9590-62-10 05:21:00Identifier 57845- 6 Result Time 2019-02-26 05:21:00Unknown Test Item Value Reference Range Comments Unknown (test code = 742-7) 0.7 10^3/ul Unknown 0-0.8 F Ordering Physician UnknownLaboratory Rwrswkp6922-66-00 05:21:00Identifier 75717- 6 Result Time 2019-02-26 05:21:00Unknown Test Item Value Reference Range Comments Unknown (test code = 731-0) 0.7 10^3/ul Unknown 1.0-4.8 F Ordering Physician UnknownLaboratory Qghkzea1799-80-42 05:21:00Identifier 06308- 6 Result Time 2019-02-26 05:21:00Unknown Test Item Value Reference Range Comments Unknown (test code = 711-2) 0.1 10^3/ul Unknown 0-0.6 F Ordering Physician UnknownLaboratory Mswtygs3494-54-02 05:21:00Identifier 41559- 6 Result Time 2019-02-26 05:21:00Unknown Test Item Value Reference Range Comments Unknown (test code = 704-7) 0.0 10^3/ul Unknown 0-0.2 F Ordering Physician UnknownLaboratory Oqapwlu5690-13-79 18:33:00Identifier 85297- 6 Result Time 2019-02-23 18:33:00Unknown Test Item Value Reference Range Comments Unknown (test code = 5643-2) 236 mg/dL Unknown 0-10 F Ordering Physician UnknownLaboratory Ynpnwme6729-65-29 18:33:00Identifier 54043- 6 Result Time 2019-02-23 18:33:00Unknown Test Item Value Reference Range Comments Unknown (test code = 15597-1) 0.89 Unknown 0.82-1.09 F Ordering Physician UnknownLaboratory Tsmrbpe7258-27-45 18:33:00Identifier 69905- 6 Result Time 2019-02-23 18:33:00Unknown Test Item Value Reference Range Comments Unknown (test code = 77556-2) 31.2 seconds Unknown 26.0-38.0 F Ordering Physician UnknownLaboratory Ywmqwah7106-80-95 18:33:00Identifier 72429- 6 Result Time 2019-02-23 18:33:00Unknown Test Item Value Reference Range Comments Unknown (test code = 2524-7) 1.6 mmol/L Unknown 0.5-2.0 F Ordering Physician UnknownLaboratory Sefyfxs0301-97-22 18:32:00Identifier 27550- 6 Result Time 2019-02-23 18:32:00Unknown Test Item Value Reference Range Comments Unknown (test code = 51737-5) 0.01 s/c Unknown Unknown F Ordering Physician Unknown
--- OUTSIDE RECORDS SUMMARY | 2019-10-05 20:53 | XMS REPORT ---
:1960 Author Organization [facility] Care Team Providers Name Role Phone Unavailable [...] Result Comments Laboratory Studies 2019-03-01 05:54:00 Identifier [id number] Result Time Unknown 2019-03-01 05:54:00 Test Item Value Reference Range Comments Unknown (test code = 2951-2) 136 mmol/L Unknown 135-145 F Ordering Physician UnknownLaboratory Hrqxdum2423-69-65 05:54:00Identifier [id number]- 6 Result Time 2019-03-01 05:54:00Unknown Test Item Value Reference Range Comments Unknown (test code = 2823-3) 4.4 mmol/L Unknown 3.5-5.0 F Ordering Physician UnknownLaboratory Aepepnu9279-75-20 05:54:00Identifier 83614- 6 Result Time 2019-03-01 05:54:00Unknown Test Item Value Reference Range Comments Unknown (test code = 82567-2) 2.5 mg/dL Unknown 1.9-2.7 F Ordering Physician UnknownLaboratory Omkmptj3014-32-09 05:54:00Identifier 75285- 6 Result Time 2019-03-01 05:54:00Unknown Test Item Value Reference Range Comments Unknown (test code = 2345-7) 95 mg/dL Unknown 70-100 F Ordering Physician UnknownLaboratory Qgzrvyf0772-56-82 05:54:00Identifier 46776- 6 Result Time 2019-03-01 05:54:00Unknown Test Item Value Reference Range Comments Unknown (test code = 03243-0) 128.5 Unknown Unknown F Ordering Physician UnknownLaboratory Etmqqcy7748-97-56 05:54:00Identifier 07868- 6 Result Time 2019-03-01 05:54:00Unknown Test Item Value Reference Range Comments Unknown (test code = NullTestCode) 155.4 Unknown Unknown F Ordering Physician UnknownLaboratory Jpndevn4381-77-07 05:54:00Identifier 58355- 6 Result Time 2019-03-01 05:54:00Unknown Test Item Value Reference Range Comments Unknown (test code = 2160-0) 0.64 mg/dL Unknown 0.67-1.17 F Ordering Physician UnknownLaboratory Tsngegv5665-22-74 05:54:00Identifier 79363- 6 Result Time 2019-03-01 05:54:00Unknown Test Item Value Reference Range Comments Unknown (test code = 2075-0) 102 mmol/L Unknown 101-111 F Ordering Physician UnknownLaboratory Mdwdimf3112-75-72 05:54:00Identifier 33267- 6 Result Time 2019-03-01 05:54:00Unknown Test Item Value Reference Range Comments Unknown (test code = 2028-9) 29 mmol/L Unknown 22-32 F Ordering Physician UnknownLaboratory Hktvszk2938-10-39 05:54:00Identifier 84638- 6 Result Time 2019-03-01 05:54:00Unknown Test Item Value Reference Range Comments Unknown (test code = 82352-3) 8.7 mg/dL Unknown 8.6-10.3 F Ordering Physician UnknownLaboratory Wsrdihv3275-98-92 05:54:00Identifier 06651- 6 Result Time 2019-03-01 05:54:00Unknown Test Item Value Reference Range Comments Unknown (test code = 3094-0) 18 mg/dL Unknown 6-24 F Ordering Physician UnknownLaboratory Zwwdrjf9550-12-20 05:54:00Identifier 34910- 6 Result Time 2019-03-01 05:54:00Unknown Test Item Value Reference Range Comments Unknown (test code = 3097-3) 28.1 Unknown 8-20 F Ordering Physician UnknownLaboratory Rgwbket9866-29-76 05:54:00Identifier 12236- 6 Result Time 2019-03-01 05:54:00Unknown Test Item Value Reference Range Comments Unknown (test code = 19085-3) 5 mmol/L Unknown 2-11 F Ordering Physician UnknownLaboratory Thbqgtl1560-67-81 08:50:00Identifier 61306- 6 Result Time 2019-02-27 08:50:00Unknown Test Item Value Reference Range Comments Unknown (test code = 13747-0) 5.2 10^3/uL Unknown 3.5-10.8 F Ordering Physician UnknownLaboratory Pxjutyd1779-46-14 08:50:00Identifier 31017- 6 Result Time 2019-02-27 08:50:00Unknown Test Item Value Reference Range Comments Unknown (test code = 788-0) 15 % Unknown 10-15 F Ordering Physician UnknownLaboratory Ufltfpv7205-73-57 08:50:00Identifier 31831- 6 Result Time 2019-02-27 08:50:00Unknown Test Item Value Reference Range Comments Unknown (test code = 789-8) 3.43 10^6 /uL Unknown 4.18-5.48 F Ordering Physician UnknownLaboratory Uupfril9533-81-86 08:50:00Identifier 37870- 6 Result Time 2019-02-27 08:50:00Unknown Test Item Value Reference Range Comments Unknown (test code = 777-3) 144 10^3/uL Unknown 150-450 F Ordering Physician UnknownLaboratory Akowgrb4084-29-62 08:50:00Identifier 55687- 6 Result Time 2019-02-27 08:50:00Unknown Test Item Value Reference Range Comments Unknown (test code = 37532-1) 7.9 fL Unknown 7.4-10.4 F Ordering Physician UnknownLaboratory Aeearhl1134-52-98 08:50:00Identifier 14961- 6 Result Time 2019-02-27 08:50:00Unknown Test Item Value Reference Range Comments Unknown (test code = 787-2) 97 fL Unknown 80-94 F Ordering Physician UnknownLaboratory Egxnxzq6758-08-63 08:50:00Identifier 93527- 6 Result Time 2019-02-27 08:50:00Unknown Test Item Value Reference Range Comments Unknown (test code = 786-4) 34 g/dL Unknown 31-36 F Ordering Physician UnknownLaboratory Dtvatiz0400-12-38 08:50:00Identifier 89095- 6 Result Time 2019-02-27 08:50:00Unknown Test Item Value Reference Range Comments Unknown (test code = 785-6) 33 pg Unknown 27-31 F Ordering Physician UnknownLaboratory Ahstucb3185-37-77 08:50:00Identifier 86758- 6 Result Time 2019-02-27 08:50:00Unknown Test Item Value Reference Range Comments Unknown (test code = 718-7) 11.4 g/dL Unknown 14.0-18.0 F Ordering Physician UnknownLaboratory Rnvqmal8238-44-28 08:50:00Identifier 36736- 6 Result Time 2019-02-27 08:50:00Unknown Test Item Value Reference Range Comments Unknown (test code = 4544-3) 33 % Unknown 42-52 F Ordering Physician UnknownLaboratory Qzhkcyt2782-59-46 05:21:00Identifier 67394- 6 Result Time 2019-02-26 05:21:00Unknown Test Item Value Reference Range Comments Unknown (test code = 2885-2) 6.1 g/dL Unknown 6.4-8.9 F Ordering Physician UnknownLaboratory Iaryeub4785-46-03 05:21:00Identifier 66940- 6 Result Time 2019-02-26 05:21:00Unknown Test Item Value Reference Range Comments Unknown (test code = 1975-2) 0.90 mg/dL Unknown 0.2-1.0 F Ordering Physician UnknownLaboratory Mhvjecu8019-90-35 05:21:00Identifier 08253- 6 Result Time 2019-02-26 05:21:00Unknown Test Item Value Reference Range Comments Unknown (test code = 2777-1) 3.7 mg/dL Unknown 2.5-5.0 F Ordering Physician UnknownLaboratory Yoyvwwx6252-91-64 05:21:00Identifier 83875- 6 Result Time 2019-02-26 05:21:00Unknown Test Item Value Reference Range Comments Unknown (test code = 1971-1) 0.6 mg/dL Unknown 0.3-1.0 F Ordering Physician UnknownLaboratory Rrfcwwl5971-97-01 05:21:00Identifier 94022- 6 Result Time 2019-02-26 05:21:00Unknown Test Item Value Reference Range Comments Unknown (test code = NullTestCode) 2.5 g/dL Unknown 2-4 F Ordering Physician UnknownLaboratory Uvsarol3037-28-00 05:21:00Identifier 44799- 6 Result Time 2019-02-26 05:21:00Unknown Test Item Value Reference Range Comments Unknown (test code = 1968-7) 0.30 mg/dL Unknown 0.03-0.18 F Ordering Physician UnknownLaboratory Zsudwls0064-98-23 05:21:00Identifier 47884- 6 Result Time 2019-02-26 05:21:00Unknown Test Item Value Reference Range Comments Unknown (test code = 1920-8) 112 U/L Unknown 13-39 F Ordering Physician UnknownLaboratory Nulxkdp1728-20-07 05:21:00Identifier 30205- 6 Result Time 2019-02-26 05:21:00Unknown Test Item Value Reference Range Comments Unknown (test code = 6768-6) 342 U/L Unknown 34-104 F Ordering Physician UnknownLaboratory Pxbnuop8029-18-06 05:21:00Identifier 76413- 6 Result Time 2019-02-26 05:21:00Unknown Test Item Value Reference Range Comments Unknown (test code = 1759-0) 1.4 Unknown 1-3 F Ordering Physician UnknownLaboratory Zjfksox0641-24-20 05:21:00Identifier 02663- 6 Result Time 2019-02-26 05:21:00Unknown Test Item Value Reference Range Comments Unknown (test code = 30080-4) 3.6 g/dL Unknown 3.2-5.2 F Ordering Physician UnknownLaboratory Mogvhox1221-99-01 05:21:00Identifier 14585- 6 Result Time 2019-02-26 05:21:00Unknown Test Item Value Reference Range Comments Unknown (test code = 1742-6) 133 U/L Unknown 7-52 F Ordering Physician UnknownLaboratory Pmoctjo3165-49-03 05:21:00Identifier 62948- 6 Result Time 2019-02-26 05:21:00Unknown Test Item Value Reference Range Comments Unknown (test code = 55195-1) 0.1 Unknown Unknown F Ordering Physician UnknownLaboratory Yszktlz4119-87-78 05:21:00Identifier 95082- 6 Result Time 2019-02-26 05:21:00Unknown Test Item Value Reference Range Comments Unknown (test code = 771-6) 0.0 10^3/ul Unknown Unknown F Ordering Physician UnknownLaboratory Ziuenyi9184-00-11 05:21:00Identifier 54770- 6 Result Time 2019-02-26 05:21:00Unknown Test Item Value Reference Range Comments Unknown (test code = 770-8) 62.9 % Unknown Unknown F Ordering Physician UnknownLaboratory Blmfhnj9945-73-46 05:21:00Identifier 24255- 6 Result Time 2019-02-26 05:21:00Unknown Test Item Value Reference Range Comments Unknown (test code = 5905-5) 16.4 % Unknown Unknown F Ordering Physician UnknownLaboratory Sfcasxz7637-26-86 05:21:00Identifier 98885- 6 Result Time 2019-02-26 05:21:00Unknown Test Item Value Reference Range Comments Unknown (test code = 736-9) 16.5 % Unknown Unknown F Ordering Physician UnknownLaboratory Qwfyevm1885-25-58 05:21:00Identifier 14905- 6 Result Time 2019-02-26 05:21:00Unknown Test Item Value Reference Range Comments Unknown (test code = 713-8) 3.4 % Unknown Unknown F Ordering Physician UnknownLaboratory Urslsge9842-85-92 05:21:00Identifier 17856- 6 Result Time 2019-02-26 05:21:00Unknown Test Item Value Reference Range Comments Unknown (test code = 706-2) 0.8 % Unknown Unknown F Ordering Physician UnknownLaboratory Kuprvfp3780-69-83 05:21:00Identifier 36443- 6 Result Time 2019-02-26 05:21:00Unknown Test Item Value Reference Range Comments Unknown (test code = OXU2483) 2.6 10^3/ul Unknown 1.5-7.7 F Ordering Physician UnknownLaboratory Cnocghi2167-10-77 05:21:00Identifier 45039- 6 Result Time 2019-02-26 05:21:00Unknown Test Item Value Reference Range Comments Unknown (test code = 742-7) 0.7 10^3/ul Unknown 0-0.8 F Ordering Physician UnknownLaboratory Wctvpal7826-71-72 05:21:00Identifier 21905- 6 Result Time 2019-02-26 05:21:00Unknown Test Item Value Reference Range Comments Unknown (test code = 731-0) 0.7 10^3/ul Unknown 1.0-4.8 F Ordering Physician UnknownLaboratory Jrybddg6685-91-84 05:21:00Identifier 23662- 6 Result Time 2019-02-26 05:21:00Unknown Test Item Value Reference Range Comments Unknown (test code = 711-2) 0.1 10^3/ul Unknown 0-0.6 F Ordering Physician UnknownLaboratory Iwalwri9296-23-52 05:21:00Identifier 77984- 6 Result Time 2019-02-26 05:21:00Unknown Test Item Value Reference Range Comments Unknown (test code = 704-7) 0.0 10^3/ul Unknown 0-0.2 F Ordering Physician UnknownLaboratory Dofxror8685-68-11 18:33:00Identifier 65059- 6 Result Time 2019-02-23 18:33:00Unknown Test Item Value Reference Range Comments Unknown (test code = 5643-2) 236 mg/dL Unknown 0-10 F Ordering Physician UnknownLaboratory Zvblyrf2724-85-54 18:33:00Identifier 91675- 6 Result Time 2019-02-23 18:33:00Unknown Test Item Value Reference Range Comments Unknown (test code = 06908-2) 0.89 Unknown 0.82-1.09 F Ordering Physician UnknownLaboratory Gjoxmuy8330-56-65 18:33:00Identifier 87441- 6 Result Time 2019-02-23 18:33:00Unknown Test Item Value Reference Range Comments Unknown (test code = 24782-3) 31.2 seconds Unknown 26.0-38.0 F Ordering Physician UnknownLaboratory Arivphf8757-56-61 18:33:00Identifier 07689- 6 Result Time 2019-02-23 18:33:00Unknown Test Item Value Reference Range Comments Unknown (test code = 2524-7) 1.6 mmol/L Unknown 0.5-2.0 F Ordering Physician UnknownLaboratory Kwidhqb5805-84-14 18:32:00Identifier 06181- 6 Result Time 2019-02-23 18:32:00Unknown Test Item Value Reference Range Comments Unknown (test code = 44188-3) 0.01 s/c Unknown Unknown F Ordering Physician Unknown
--- OUTSIDE RECORDS SUMMARY | 2019-10-05 20:53 | XMS REPORT ---
:1960 Author Organization [facility] Care Team Providers Name Role Phone Unavailable [...] Result Comments Laboratory Studies 2019-03-01 05:54:00 Identifier [id number] Result Time Unknown 2019-03-01 05:54:00 Test Item Value Reference Range Comments Unknown (test code = 2951-2) 136 mmol/L Unknown 135-145 F Ordering Physician UnknownLaboratory Vkxjnnj7891-04-68 05:54:00Identifier 54088- 6 Result Time 2019-03-01 05:54:00Unknown Test Item Value Reference Range Comments Unknown (test code = 2823-3) 4.4 mmol/L Unknown 3.5-5.0 F Ordering Physician UnknownLaboratory Oaghtzi1041-27-05 05:54:00Identifier 27281- 6 Result Time 2019-03-01 05:54:00Unknown Test Item Value Reference Range Comments Unknown (test code = 55972-3) 2.5 mg/dL Unknown 1.9-2.7 F Ordering Physician UnknownLaboratory Agfmvjt8310-51-26 05:54:00Identifier 93991- 6 Result Time 2019-03-01 05:54:00Unknown Test Item Value Reference Range Comments Unknown (test code = 2345-7) 95 mg/dL Unknown 70-100 F Ordering Physician UnknownLaboratory Rmbbfga3288-64-98 05:54:00Identifier 80565- 6 Result Time 2019-03-01 05:54:00Unknown Test Item Value Reference Range Comments Unknown (test code = 00626-8) 128.5 Unknown Unknown F Ordering Physician UnknownLaboratory Vwikjuk6295-57-86 05:54:00Identifier 48841- 6 Result Time 2019-03-01 05:54:00Unknown Test Item Value Reference Range Comments Unknown (test code = NullTestCode) 155.4 Unknown Unknown F Ordering Physician UnknownLaboratory Zufqvek1941-98-97 05:54:00Identifier 00861- 6 Result Time 2019-03-01 05:54:00Unknown Test Item Value Reference Range Comments Unknown (test code = 2160-0) 0.64 mg/dL Unknown 0.67-1.17 F Ordering Physician UnknownLaboratory Fsftajn8785-96-66 05:54:00Identifier 72234- 6 Result Time 2019-03-01 05:54:00Unknown Test Item Value Reference Range Comments Unknown (test code = 2075-0) 102 mmol/L Unknown 101-111 F Ordering Physician UnknownLaboratory Gbsyill8433-64-39 05:54:00Identifier 48868- 6 Result Time 2019-03-01 05:54:00Unknown Test Item Value Reference Range Comments Unknown (test code = 2028-9) 29 mmol/L Unknown 22-32 F Ordering Physician UnknownLaboratory Zxblahz5500-62-16 05:54:00Identifier 09807- 6 Result Time 2019-03-01 05:54:00Unknown Test Item Value Reference Range Comments Unknown (test code = 99244-3) 8.7 mg/dL Unknown 8.6-10.3 F Ordering Physician UnknownLaboratory Fzhwpwi1031-10-59 05:54:00Identifier 19262- 6 Result Time 2019-03-01 05:54:00Unknown Test Item Value Reference Range Comments Unknown (test code = 3094-0) 18 mg/dL Unknown 6-24 F Ordering Physician UnknownLaboratory Nkmbouz2876-87-77 05:54:00Identifier 68719- 6 Result Time 2019-03-01 05:54:00Unknown Test Item Value Reference Range Comments Unknown (test code = 3097-3) 28.1 Unknown 8-20 F Ordering Physician UnknownLaboratory Itknhkm0358-93-92 05:54:00Identifier 52750- 6 Result Time 2019-03-01 05:54:00Unknown Test Item Value Reference Range Comments Unknown (test code = 81036-4) 5 mmol/L Unknown 2-11 F Ordering Physician UnknownLaboratory Iilugki7144-13-13 08:50:00Identifier 47494- 6 Result Time 2019-02-27 08:50:00Unknown Test Item Value Reference Range Comments Unknown (test code = 60941-6) 5.2 10^3/uL Unknown 3.5-10.8 F Ordering Physician UnknownLaboratory Dymzgvw9351-44-51 08:50:00Identifier 98489- 6 Result Time 2019-02-27 08:50:00Unknown Test Item Value Reference Range Comments Unknown (test code = 788-0) 15 % Unknown 10-15 F Ordering Physician UnknownLaboratory Zuhkmnf7315-72-82 08:50:00Identifier 38511- 6 Result Time 2019-02-27 08:50:00Unknown Test Item Value Reference Range Comments Unknown (test code = 789-8) 3.43 10^6 /uL Unknown 4.18-5.48 F Ordering Physician UnknownLaboratory Cavzbdq9719-51-25 08:50:00Identifier 56515- 6 Result Time 2019-02-27 08:50:00Unknown Test Item Value Reference Range Comments Unknown (test code = 777-3) 144 10^3/uL Unknown 150-450 F Ordering Physician UnknownLaboratory Pxedpms8070-49-86 08:50:00Identifier 48744- 6 Result Time 2019-02-27 08:50:00Unknown Test Item Value Reference Range Comments Unknown (test code = 57295-2) 7.9 fL Unknown 7.4-10.4 F Ordering Physician UnknownLaboratory Hrnlqbg1829-63-52 08:50:00Identifier 45456- 6 Result Time 2019-02-27 08:50:00Unknown Test Item Value Reference Range Comments Unknown (test code = 787-2) 97 fL Unknown 80-94 F Ordering Physician UnknownLaboratory Uthlqud2130-50-96 08:50:00Identifier 28417- 6 Result Time 2019-02-27 08:50:00Unknown Test Item Value Reference Range Comments Unknown (test code = 786-4) 34 g/dL Unknown 31-36 F Ordering Physician UnknownLaboratory Qxzckfu0371-44-55 08:50:00Identifier 15427- 6 Result Time 2019-02-27 08:50:00Unknown Test Item Value Reference Range Comments Unknown (test code = 785-6) 33 pg Unknown 27-31 F Ordering Physician UnknownLaboratory Ianvkfr5455-16-62 08:50:00Identifier 30425- 6 Result Time 2019-02-27 08:50:00Unknown Test Item Value Reference Range Comments Unknown (test code = 718-7) 11.4 g/dL Unknown 14.0-18.0 F Ordering Physician UnknownLaboratory Wixbyhp9039-26-03 08:50:00Identifier 56544- 6 Result Time 2019-02-27 08:50:00Unknown Test Item Value Reference Range Comments Unknown (test code = 4544-3) 33 % Unknown 42-52 F Ordering Physician UnknownLaboratory Styhnhd5572-81-36 05:21:00Identifier 85552- 6 Result Time 2019-02-26 05:21:00Unknown Test Item Value Reference Range Comments Unknown (test code = 2885-2) 6.1 g/dL Unknown 6.4-8.9 F Ordering Physician UnknownLaboratory Zqanthu1714-60-50 05:21:00Identifier 57151- 6 Result Time 2019-02-26 05:21:00Unknown Test Item Value Reference Range Comments Unknown (test code = 1975-2) 0.90 mg/dL Unknown 0.2-1.0 F Ordering Physician UnknownLaboratory Blaloav4376-80-70 05:21:00Identifier 79121- 6 Result Time 2019-02-26 05:21:00Unknown Test Item Value Reference Range Comments Unknown (test code = 2777-1) 3.7 mg/dL Unknown 2.5-5.0 F Ordering Physician UnknownLaboratory Rtofhae8615-50-17 05:21:00Identifier 35467- 6 Result Time 2019-02-26 05:21:00Unknown Test Item Value Reference Range Comments Unknown (test code = 1971-1) 0.6 mg/dL Unknown 0.3-1.0 F Ordering Physician UnknownLaboratory Prhynqi1599-57-68 05:21:00Identifier 70762- 6 Result Time 2019-02-26 05:21:00Unknown Test Item Value Reference Range Comments Unknown (test code = NullTestCode) 2.5 g/dL Unknown 2-4 F Ordering Physician UnknownLaboratory Iuinlsi3698-23-37 05:21:00Identifier 09685- 6 Result Time 2019-02-26 05:21:00Unknown Test Item Value Reference Range Comments Unknown (test code = 1968-7) 0.30 mg/dL Unknown 0.03-0.18 F Ordering Physician UnknownLaboratory Cmrzoag6097-57-74 05:21:00Identifier 13335- 6 Result Time 2019-02-26 05:21:00Unknown Test Item Value Reference Range Comments Unknown (test code = 1920-8) 112 U/L Unknown 13-39 F Ordering Physician UnknownLaboratory Dzqvrea0446-23-00 05:21:00Identifier 02924- 6 Result Time 2019-02-26 05:21:00Unknown Test Item Value Reference Range Comments Unknown (test code = 6768-6) 342 U/L Unknown 34-104 F Ordering Physician UnknownLaboratory Jfedeyc0337-88-56 05:21:00Identifier 07681- 6 Result Time 2019-02-26 05:21:00Unknown Test Item Value Reference Range Comments Unknown (test code = 1759-0) 1.4 Unknown 1-3 F Ordering Physician UnknownLaboratory Pedwgng7042-78-65 05:21:00Identifier 75408- 6 Result Time 2019-02-26 05:21:00Unknown Test Item Value Reference Range Comments Unknown (test code = 22056-2) 3.6 g/dL Unknown 3.2-5.2 F Ordering Physician UnknownLaboratory Kihcjta2787-82-77 05:21:00Identifier 77179- 6 Result Time 2019-02-26 05:21:00Unknown Test Item Value Reference Range Comments Unknown (test code = 1742-6) 133 U/L Unknown 7-52 F Ordering Physician UnknownLaboratory Efyimbx2512-13-29 05:21:00Identifier 17704- 6 Result Time 2019-02-26 05:21:00Unknown Test Item Value Reference Range Comments Unknown (test code = 00961-9) 0.1 Unknown Unknown F Ordering Physician UnknownLaboratory Ignfoub5057-93-62 05:21:00Identifier 46096- 6 Result Time 2019-02-26 05:21:00Unknown Test Item Value Reference Range Comments Unknown (test code = 771-6) 0.0 10^3/ul Unknown Unknown F Ordering Physician UnknownLaboratory Azjsyox8185-39-85 05:21:00Identifier 56359- 6 Result Time 2019-02-26 05:21:00Unknown Test Item Value Reference Range Comments Unknown (test code = 770-8) 62.9 % Unknown Unknown F Ordering Physician UnknownLaboratory Fzumkux0738-70-99 05:21:00Identifier 51104- 6 Result Time 2019-02-26 05:21:00Unknown Test Item Value Reference Range Comments Unknown (test code = 5905-5) 16.4 % Unknown Unknown F Ordering Physician UnknownLaboratory Fhmqmzo5054-73-37 05:21:00Identifier 23196- 6 Result Time 2019-02-26 05:21:00Unknown Test Item Value Reference Range Comments Unknown (test code = 736-9) 16.5 % Unknown Unknown F Ordering Physician UnknownLaboratory Kpymxiz8006-55-32 05:21:00Identifier 21617- 6 Result Time 2019-02-26 05:21:00Unknown Test Item Value Reference Range Comments Unknown (test code = 713-8) 3.4 % Unknown Unknown F Ordering Physician UnknownLaboratory Lhbjefq7917-74-35 05:21:00Identifier 06538- 6 Result Time 2019-02-26 05:21:00Unknown Test Item Value Reference Range Comments Unknown (test code = 706-2) 0.8 % Unknown Unknown F Ordering Physician UnknownLaboratory Tpcwbom4500-98-34 05:21:00Identifier 14690- 6 Result Time 2019-02-26 05:21:00Unknown Test Item Value Reference Range Comments Unknown (test code = TCZ8172) 2.6 10^3/ul Unknown 1.5-7.7 F Ordering Physician UnknownLaboratory Fzdtxuj0926-13-76 05:21:00Identifier 29655- 6 Result Time 2019-02-26 05:21:00Unknown Test Item Value Reference Range Comments Unknown (test code = 742-7) 0.7 10^3/ul Unknown 0-0.8 F Ordering Physician UnknownLaboratory Xfpboac6131-85-63 05:21:00Identifier 22756- 6 Result Time 2019-02-26 05:21:00Unknown Test Item Value Reference Range Comments Unknown (test code = 731-0) 0.7 10^3/ul Unknown 1.0-4.8 F Ordering Physician UnknownLaboratory Fijcqan4331-45-19 05:21:00Identifier 40529- 6 Result Time 2019-02-26 05:21:00Unknown Test Item Value Reference Range Comments Unknown (test code = 711-2) 0.1 10^3/ul Unknown 0-0.6 F Ordering Physician UnknownLaboratory Zkxmoin3639-31-42 05:21:00Identifier 99754- 6 Result Time 2019-02-26 05:21:00Unknown Test Item Value Reference Range Comments Unknown (test code = 704-7) 0.0 10^3/ul Unknown 0-0.2 F Ordering Physician UnknownLaboratory Oeomhqx6119-84-36 18:33:00Identifier 92815- 6 Result Time 2019-02-23 18:33:00Unknown Test Item Value Reference Range Comments Unknown (test code = 5643-2) 236 mg/dL Unknown 0-10 F Ordering Physician UnknownLaboratory Xpatyik7917-87-19 18:33:00Identifier 03336- 6 Result Time 2019-02-23 18:33:00Unknown Test Item Value Reference Range Comments Unknown (test code = 86816-5) 0.89 Unknown 0.82-1.09 F Ordering Physician UnknownLaboratory Thswrwl1022-28-25 18:33:00Identifier 18498- 6 Result Time 2019-02-23 18:33:00Unknown Test Item Value Reference Range Comments Unknown (test code = 29363-3) 31.2 seconds Unknown 26.0-38.0 F Ordering Physician UnknownLaboratory Eocgshv6103-76-28 18:33:00Identifier 72561- 6 Result Time 2019-02-23 18:33:00Unknown Test Item Value Reference Range Comments Unknown (test code = 2524-7) 1.6 mmol/L Unknown 0.5-2.0 F Ordering Physician UnknownLaboratory Sawjsna3827-41-93 18:32:00Identifier 10005- 6 Result Time 2019-02-23 18:32:00Unknown Test Item Value Reference Range Comments Unknown (test code = 15121-4) 0.01 s/c Unknown Unknown F Ordering Physician Unknown
--- OUTSIDE RECORDS SUMMARY | 2019-10-05 20:53 | XMS REPORT ---
:1960 Author Organization [facility] Care Team Providers Name Role Phone Unavailable [...] Result Comments Laboratory Studies 2019-03-01 05:54:00 Identifier [id number] Result Time Unknown 2019-03-01 05:54:00 Test Item Value Reference Range Comments Unknown (test code = 2951-2) 136 mmol/L Unknown 135-145 F Ordering Physician UnknownLaboratory Vanzfjw3119-67-34 05:54:00Identifier 90921- 6 Result Time 2019-03-01 05:54:00Unknown Test Item Value Reference Range Comments Unknown (test code = 2823-3) 4.4 mmol/L Unknown 3.5-5.0 F Ordering Physician UnknownLaboratory Jmdtsnu8333-87-43 05:54:00Identifier 30236- 6 Result Time 2019-03-01 05:54:00Unknown Test Item Value Reference Range Comments Unknown (test code = 80421-7) 2.5 mg/dL Unknown 1.9-2.7 F Ordering Physician UnknownLaboratory Qvamjhn3160-83-20 05:54:00Identifier 05435- 6 Result Time 2019-03-01 05:54:00Unknown Test Item Value Reference Range Comments Unknown (test code = 2345-7) 95 mg/dL Unknown 70-100 F Ordering Physician UnknownLaboratory Ocmjsga8113-65-73 05:54:00Identifier 59594- 6 Result Time 2019-03-01 05:54:00Unknown Test Item Value Reference Range Comments Unknown (test code = 61001-6) 128.5 Unknown Unknown F Ordering Physician UnknownLaboratory Tphgsyl5827-15-76 05:54:00Identifier 68084- 6 Result Time 2019-03-01 05:54:00Unknown Test Item Value Reference Range Comments Unknown (test code = NullTestCode) 155.4 Unknown Unknown F Ordering Physician UnknownLaboratory Nzmhfud4806-77-91 05:54:00Identifier 66280- 6 Result Time 2019-03-01 05:54:00Unknown Test Item Value Reference Range Comments Unknown (test code = 2160-0) 0.64 mg/dL Unknown 0.67-1.17 F Ordering Physician UnknownLaboratory Yimqntx8596-88-94 05:54:00Identifier 34243- 6 Result Time 2019-03-01 05:54:00Unknown Test Item Value Reference Range Comments Unknown (test code = 2075-0) 102 mmol/L Unknown 101-111 F Ordering Physician UnknownLaboratory Ysspakw4433-13-08 05:54:00Identifier 30121- 6 Result Time 2019-03-01 05:54:00Unknown Test Item Value Reference Range Comments Unknown (test code = 2028-9) 29 mmol/L Unknown 22-32 F Ordering Physician UnknownLaboratory Shxrmnv7157-54-07 05:54:00Identifier 39921- 6 Result Time 2019-03-01 05:54:00Unknown Test Item Value Reference Range Comments Unknown (test code = 71256-5) 8.7 mg/dL Unknown 8.6-10.3 F Ordering Physician UnknownLaboratory Uicbmpt8032-16-50 05:54:00Identifier 94984- 6 Result Time 2019-03-01 05:54:00Unknown Test Item Value Reference Range Comments Unknown (test code = 3094-0) 18 mg/dL Unknown 6-24 F Ordering Physician UnknownLaboratory Qiwqmuw7457-56-19 05:54:00Identifier 19722- 6 Result Time 2019-03-01 05:54:00Unknown Test Item Value Reference Range Comments Unknown (test code = 3097-3) 28.1 Unknown 8-20 F Ordering Physician UnknownLaboratory Csjkxpi3724-64-42 05:54:00Identifier 03672- 6 Result Time 2019-03-01 05:54:00Unknown Test Item Value Reference Range Comments Unknown (test code = 45322-2) 5 mmol/L Unknown 2-11 F Ordering Physician UnknownLaboratory Hwwyrfi3109-88-33 08:50:00Identifier 64691- 6 Result Time 2019-02-27 08:50:00Unknown Test Item Value Reference Range Comments Unknown (test code = 54724-0) 5.2 10^3/uL Unknown 3.5-10.8 F Ordering Physician UnknownLaboratory Buomsvu0090-64-87 08:50:00Identifier 21745- 6 Result Time 2019-02-27 08:50:00Unknown Test Item Value Reference Range Comments Unknown (test code = 788-0) 15 % Unknown 10-15 F Ordering Physician UnknownLaboratory Mnvyfjk6490-72-54 08:50:00Identifier 61352- 6 Result Time 2019-02-27 08:50:00Unknown Test Item Value Reference Range Comments Unknown (test code = 789-8) 3.43 10^6 /uL Unknown 4.18-5.48 F Ordering Physician UnknownLaboratory Ngrawia9000-37-07 08:50:00Identifier 34636- 6 Result Time 2019-02-27 08:50:00Unknown Test Item Value Reference Range Comments Unknown (test code = 777-3) 144 10^3/uL Unknown 150-450 F Ordering Physician UnknownLaboratory Zwhcjxo0118-44-17 08:50:00Identifier 86258- 6 Result Time 2019-02-27 08:50:00Unknown Test Item Value Reference Range Comments Unknown (test code = 83532-2) 7.9 fL Unknown 7.4-10.4 F Ordering Physician UnknownLaboratory Olozjbp9151-17-85 08:50:00Identifier 31388- 6 Result Time 2019-02-27 08:50:00Unknown Test Item Value Reference Range Comments Unknown (test code = 787-2) 97 fL Unknown 80-94 F Ordering Physician UnknownLaboratory Jfcijxc3931-48-80 08:50:00Identifier 04253- 6 Result Time 2019-02-27 08:50:00Unknown Test Item Value Reference Range Comments Unknown (test code = 786-4) 34 g/dL Unknown 31-36 F Ordering Physician UnknownLaboratory Mcuqupy6439-70-24 08:50:00Identifier 61859- 6 Result Time 2019-02-27 08:50:00Unknown Test Item Value Reference Range Comments Unknown (test code = 785-6) 33 pg Unknown 27-31 F Ordering Physician UnknownLaboratory Nlcrmoq0328-35-07 08:50:00Identifier 34681- 6 Result Time 2019-02-27 08:50:00Unknown Test Item Value Reference Range Comments Unknown (test code = 718-7) 11.4 g/dL Unknown 14.0-18.0 F Ordering Physician UnknownLaboratory Yeutbpk6201-42-76 08:50:00Identifier 48985- 6 Result Time 2019-02-27 08:50:00Unknown Test Item Value Reference Range Comments Unknown (test code = 4544-3) 33 % Unknown 42-52 F Ordering Physician UnknownLaboratory Uoxsnnv8073-11-08 05:21:00Identifier 78398- 6 Result Time 2019-02-26 05:21:00Unknown Test Item Value Reference Range Comments Unknown (test code = 2885-2) 6.1 g/dL Unknown 6.4-8.9 F Ordering Physician UnknownLaboratory Sbtqgub5385-68-67 05:21:00Identifier 93989- 6 Result Time 2019-02-26 05:21:00Unknown Test Item Value Reference Range Comments Unknown (test code = 1975-2) 0.90 mg/dL Unknown 0.2-1.0 F Ordering Physician UnknownLaboratory Hemedkq9834-03-81 05:21:00Identifier 98841- 6 Result Time 2019-02-26 05:21:00Unknown Test Item Value Reference Range Comments Unknown (test code = 2777-1) 3.7 mg/dL Unknown 2.5-5.0 F Ordering Physician UnknownLaboratory Jxbvyyf8384-75-14 05:21:00Identifier 69935- 6 Result Time 2019-02-26 05:21:00Unknown Test Item Value Reference Range Comments Unknown (test code = 1971-1) 0.6 mg/dL Unknown 0.3-1.0 F Ordering Physician UnknownLaboratory Kzpqyel4895-06-29 05:21:00Identifier 25308- 6 Result Time 2019-02-26 05:21:00Unknown Test Item Value Reference Range Comments Unknown (test code = NullTestCode) 2.5 g/dL Unknown 2-4 F Ordering Physician UnknownLaboratory Tceqmsj9348-79-17 05:21:00Identifier 56888- 6 Result Time 2019-02-26 05:21:00Unknown Test Item Value Reference Range Comments Unknown (test code = 1968-7) 0.30 mg/dL Unknown 0.03-0.18 F Ordering Physician UnknownLaboratory Yifcmez3730-22-48 05:21:00Identifier 02368- 6 Result Time 2019-02-26 05:21:00Unknown Test Item Value Reference Range Comments Unknown (test code = 1920-8) 112 U/L Unknown 13-39 F Ordering Physician UnknownLaboratory Ncecbpc3177-23-27 05:21:00Identifier 25883- 6 Result Time 2019-02-26 05:21:00Unknown Test Item Value Reference Range Comments Unknown (test code = 6768-6) 342 U/L Unknown 34-104 F Ordering Physician UnknownLaboratory Hsjeksb9770-88-22 05:21:00Identifier 93652- 6 Result Time 2019-02-26 05:21:00Unknown Test Item Value Reference Range Comments Unknown (test code = 1759-0) 1.4 Unknown 1-3 F Ordering Physician UnknownLaboratory Kkadtlk7774-61-71 05:21:00Identifier 46661- 6 Result Time 2019-02-26 05:21:00Unknown Test Item Value Reference Range Comments Unknown (test code = 88052-0) 3.6 g/dL Unknown 3.2-5.2 F Ordering Physician UnknownLaboratory Bcpsxps6325-83-10 05:21:00Identifier 01029- 6 Result Time 2019-02-26 05:21:00Unknown Test Item Value Reference Range Comments Unknown (test code = 1742-6) 133 U/L Unknown 7-52 F Ordering Physician UnknownLaboratory Iudkobx3237-99-75 05:21:00Identifier 95856- 6 Result Time 2019-02-26 05:21:00Unknown Test Item Value Reference Range Comments Unknown (test code = 66079-8) 0.1 Unknown Unknown F Ordering Physician UnknownLaboratory Uuvcwkx7397-55-79 05:21:00Identifier 99762- 6 Result Time 2019-02-26 05:21:00Unknown Test Item Value Reference Range Comments Unknown (test code = 771-6) 0.0 10^3/ul Unknown Unknown F Ordering Physician UnknownLaboratory Hqmhsqc7604-77-27 05:21:00Identifier 66062- 6 Result Time 2019-02-26 05:21:00Unknown Test Item Value Reference Range Comments Unknown (test code = 770-8) 62.9 % Unknown Unknown F Ordering Physician UnknownLaboratory Honqyqj9100-58-47 05:21:00Identifier 11416- 6 Result Time 2019-02-26 05:21:00Unknown Test Item Value Reference Range Comments Unknown (test code = 5905-5) 16.4 % Unknown Unknown F Ordering Physician UnknownLaboratory Tedxcli7274-82-52 05:21:00Identifier 60913- 6 Result Time 2019-02-26 05:21:00Unknown Test Item Value Reference Range Comments Unknown (test code = 736-9) 16.5 % Unknown Unknown F Ordering Physician UnknownLaboratory Ivnqsph6686-35-70 05:21:00Identifier 69467- 6 Result Time 2019-02-26 05:21:00Unknown Test Item Value Reference Range Comments Unknown (test code = 713-8) 3.4 % Unknown Unknown F Ordering Physician UnknownLaboratory Senbuob5136-66-33 05:21:00Identifier 13392- 6 Result Time 2019-02-26 05:21:00Unknown Test Item Value Reference Range Comments Unknown (test code = 706-2) 0.8 % Unknown Unknown F Ordering Physician UnknownLaboratory Kbvwjlr9354-32-60 05:21:00Identifier 07768- 6 Result Time 2019-02-26 05:21:00Unknown Test Item Value Reference Range Comments Unknown (test code = SUA0926) 2.6 10^3/ul Unknown 1.5-7.7 F Ordering Physician UnknownLaboratory Yegzcbv7885-32-39 05:21:00Identifier 73512- 6 Result Time 2019-02-26 05:21:00Unknown Test Item Value Reference Range Comments Unknown (test code = 742-7) 0.7 10^3/ul Unknown 0-0.8 F Ordering Physician UnknownLaboratory Aawrzqx8832-99-50 05:21:00Identifier 66267- 6 Result Time 2019-02-26 05:21:00Unknown Test Item Value Reference Range Comments Unknown (test code = 731-0) 0.7 10^3/ul Unknown 1.0-4.8 F Ordering Physician UnknownLaboratory Wxtwasj0880-35-80 05:21:00Identifier 93541- 6 Result Time 2019-02-26 05:21:00Unknown Test Item Value Reference Range Comments Unknown (test code = 711-2) 0.1 10^3/ul Unknown 0-0.6 F Ordering Physician UnknownLaboratory Fedrqlk7324-09-60 05:21:00Identifier 70945- 6 Result Time 2019-02-26 05:21:00Unknown Test Item Value Reference Range Comments Unknown (test code = 704-7) 0.0 10^3/ul Unknown 0-0.2 F Ordering Physician UnknownLaboratory Kmrmupx0118-04-55 18:33:00Identifier 30537- 6 Result Time 2019-02-23 18:33:00Unknown Test Item Value Reference Range Comments Unknown (test code = 5643-2) 236 mg/dL Unknown 0-10 F Ordering Physician UnknownLaboratory Siiptkc0723-49-10 18:33:00Identifier 74475- 6 Result Time 2019-02-23 18:33:00Unknown Test Item Value Reference Range Comments Unknown (test code = 33629-2) 0.89 Unknown 0.82-1.09 F Ordering Physician UnknownLaboratory Munfpss8678-58-31 18:33:00Identifier 12786- 6 Result Time 2019-02-23 18:33:00Unknown Test Item Value Reference Range Comments Unknown (test code = 68485-1) 31.2 seconds Unknown 26.0-38.0 F Ordering Physician UnknownLaboratory Ziffdcn0207-74-02 18:33:00Identifier 67394- 6 Result Time 2019-02-23 18:33:00Unknown Test Item Value Reference Range Comments Unknown (test code = 2524-7) 1.6 mmol/L Unknown 0.5-2.0 F Ordering Physician UnknownLaboratory Ahbpdqj4589-57-84 18:32:00Identifier 66874- 6 Result Time 2019-02-23 18:32:00Unknown Test Item Value Reference Range Comments Unknown (test code = 92317-5) 0.01 s/c Unknown Unknown F Ordering Physician Unknown
--- OUTSIDE RECORDS SUMMARY | 2019-10-05 20:53 | XMS REPORT ---
:1960 Author Organization [facility] Care Team Providers Name Role Phone Unavailable [...] Result Comments Laboratory Studies 2019-03-01 05:54:00 Identifier [id number] Result Time Unknown 2019-03-01 05:54:00 Test Item Value Reference Range Comments Unknown (test code = 2951-2) 136 mmol/L Unknown 135-145 F Ordering Physician UnknownLaboratory Mmtqdaj3156-67-50 05:54:00Identifier 41682- 6 Result Time 2019-03-01 05:54:00Unknown Test Item Value Reference Range Comments Unknown (test code = 2823-3) 4.4 mmol/L Unknown 3.5-5.0 F Ordering Physician UnknownLaboratory Zkcarms0153-99-80 05:54:00Identifier 41295- 6 Result Time 2019-03-01 05:54:00Unknown Test Item Value Reference Range Comments Unknown (test code = 77222-9) 2.5 mg/dL Unknown 1.9-2.7 F Ordering Physician UnknownLaboratory Sbpvszp3653-13-29 05:54:00Identifier 70269- 6 Result Time 2019-03-01 05:54:00Unknown Test Item Value Reference Range Comments Unknown (test code = 2345-7) 95 mg/dL Unknown 70-100 F Ordering Physician UnknownLaboratory Adqddek6281-28-30 05:54:00Identifier 83206- 6 Result Time 2019-03-01 05:54:00Unknown Test Item Value Reference Range Comments Unknown (test code = 15791-7) 128.5 Unknown Unknown F Ordering Physician UnknownLaboratory Kmdgtwx9207-95-07 05:54:00Identifier 10687- 6 Result Time 2019-03-01 05:54:00Unknown Test Item Value Reference Range Comments Unknown (test code = NullTestCode) 155.4 Unknown Unknown F Ordering Physician UnknownLaboratory Xwjaqwz9882-28-17 05:54:00Identifier 45218- 6 Result Time 2019-03-01 05:54:00Unknown Test Item Value Reference Range Comments Unknown (test code = 2160-0) 0.64 mg/dL Unknown 0.67-1.17 F Ordering Physician UnknownLaboratory Afupncm6275-07-34 05:54:00Identifier 95469- 6 Result Time 2019-03-01 05:54:00Unknown Test Item Value Reference Range Comments Unknown (test code = 2075-0) 102 mmol/L Unknown 101-111 F Ordering Physician UnknownLaboratory Gxhmayh3457-76-05 05:54:00Identifier 67400- 6 Result Time 2019-03-01 05:54:00Unknown Test Item Value Reference Range Comments Unknown (test code = 2028-9) 29 mmol/L Unknown 22-32 F Ordering Physician UnknownLaboratory Jihkqlu3523-80-58 05:54:00Identifier 73006- 6 Result Time 2019-03-01 05:54:00Unknown Test Item Value Reference Range Comments Unknown (test code = 03743-9) 8.7 mg/dL Unknown 8.6-10.3 F Ordering Physician UnknownLaboratory Skliedk9161-42-68 05:54:00Identifier 21842- 6 Result Time 2019-03-01 05:54:00Unknown Test Item Value Reference Range Comments Unknown (test code = 3094-0) 18 mg/dL Unknown 6-24 F Ordering Physician UnknownLaboratory Yviceou5622-70-71 05:54:00Identifier 34128- 6 Result Time 2019-03-01 05:54:00Unknown Test Item Value Reference Range Comments Unknown (test code = 3097-3) 28.1 Unknown 8-20 F Ordering Physician UnknownLaboratory Hskudkt7720-52-06 05:54:00Identifier 00092- 6 Result Time 2019-03-01 05:54:00Unknown Test Item Value Reference Range Comments Unknown (test code = 69997-7) 5 mmol/L Unknown 2-11 F Ordering Physician UnknownLaboratory Lwlmtwm4011-45-82 08:50:00Identifier 98351- 6 Result Time 2019-02-27 08:50:00Unknown Test Item Value Reference Range Comments Unknown (test code = 89090-2) 5.2 10^3/uL Unknown 3.5-10.8 F Ordering Physician UnknownLaboratory Sngqboj5759-87-22 08:50:00Identifier 33441- 6 Result Time 2019-02-27 08:50:00Unknown Test Item Value Reference Range Comments Unknown (test code = 788-0) 15 % Unknown 10-15 F Ordering Physician UnknownLaboratory Vmitgeg5929-35-09 08:50:00Identifier 47184- 6 Result Time 2019-02-27 08:50:00Unknown Test Item Value Reference Range Comments Unknown (test code = 789-8) 3.43 10^6 /uL Unknown 4.18-5.48 F Ordering Physician UnknownLaboratory Affbbem1681-60-78 08:50:00Identifier 15665- 6 Result Time 2019-02-27 08:50:00Unknown Test Item Value Reference Range Comments Unknown (test code = 777-3) 144 10^3/uL Unknown 150-450 F Ordering Physician UnknownLaboratory Umngzew6642-30-90 08:50:00Identifier 12319- 6 Result Time 2019-02-27 08:50:00Unknown Test Item Value Reference Range Comments Unknown (test code = 29041-7) 7.9 fL Unknown 7.4-10.4 F Ordering Physician UnknownLaboratory Jshqqfn4909-72-05 08:50:00Identifier 27449- 6 Result Time 2019-02-27 08:50:00Unknown Test Item Value Reference Range Comments Unknown (test code = 787-2) 97 fL Unknown 80-94 F Ordering Physician UnknownLaboratory Wyxhgod2506-30-20 08:50:00Identifier 99043- 6 Result Time 2019-02-27 08:50:00Unknown Test Item Value Reference Range Comments Unknown (test code = 786-4) 34 g/dL Unknown 31-36 F Ordering Physician UnknownLaboratory Haupcbu1427-11-79 08:50:00Identifier 01042- 6 Result Time 2019-02-27 08:50:00Unknown Test Item Value Reference Range Comments Unknown (test code = 785-6) 33 pg Unknown 27-31 F Ordering Physician UnknownLaboratory Ntllbub9617-71-72 08:50:00Identifier 92967- 6 Result Time 2019-02-27 08:50:00Unknown Test Item Value Reference Range Comments Unknown (test code = 718-7) 11.4 g/dL Unknown 14.0-18.0 F Ordering Physician UnknownLaboratory Dlzoidt2258-04-75 08:50:00Identifier 48395- 6 Result Time 2019-02-27 08:50:00Unknown Test Item Value Reference Range Comments Unknown (test code = 4544-3) 33 % Unknown 42-52 F Ordering Physician UnknownLaboratory Zehidkb9267-72-54 05:21:00Identifier 07768- 6 Result Time 2019-02-26 05:21:00Unknown Test Item Value Reference Range Comments Unknown (test code = 2885-2) 6.1 g/dL Unknown 6.4-8.9 F Ordering Physician UnknownLaboratory Gdtulej0329-21-06 05:21:00Identifier 43373- 6 Result Time 2019-02-26 05:21:00Unknown Test Item Value Reference Range Comments Unknown (test code = 1975-2) 0.90 mg/dL Unknown 0.2-1.0 F Ordering Physician UnknownLaboratory Egxzkuk3478-36-08 05:21:00Identifier 80358- 6 Result Time 2019-02-26 05:21:00Unknown Test Item Value Reference Range Comments Unknown (test code = 2777-1) 3.7 mg/dL Unknown 2.5-5.0 F Ordering Physician UnknownLaboratory Mwrwcfz7336-16-18 05:21:00Identifier 10626- 6 Result Time 2019-02-26 05:21:00Unknown Test Item Value Reference Range Comments Unknown (test code = 1971-1) 0.6 mg/dL Unknown 0.3-1.0 F Ordering Physician UnknownLaboratory Vpvkprt9815-04-77 05:21:00Identifier 68724- 6 Result Time 2019-02-26 05:21:00Unknown Test Item Value Reference Range Comments Unknown (test code = NullTestCode) 2.5 g/dL Unknown 2-4 F Ordering Physician UnknownLaboratory Wlosdmz4008-41-18 05:21:00Identifier 02683- 6 Result Time 2019-02-26 05:21:00Unknown Test Item Value Reference Range Comments Unknown (test code = 1968-7) 0.30 mg/dL Unknown 0.03-0.18 F Ordering Physician UnknownLaboratory Cujjshw8822-45-18 05:21:00Identifier 79693- 6 Result Time 2019-02-26 05:21:00Unknown Test Item Value Reference Range Comments Unknown (test code = 1920-8) 112 U/L Unknown 13-39 F Ordering Physician UnknownLaboratory Tsyxbqg9806-22-95 05:21:00Identifier 61108- 6 Result Time 2019-02-26 05:21:00Unknown Test Item Value Reference Range Comments Unknown (test code = 6768-6) 342 U/L Unknown 34-104 F Ordering Physician UnknownLaboratory Ymtgkwt6633-43-33 05:21:00Identifier 52917- 6 Result Time 2019-02-26 05:21:00Unknown Test Item Value Reference Range Comments Unknown (test code = 1759-0) 1.4 Unknown 1-3 F Ordering Physician UnknownLaboratory Hoiwuaf4924-33-99 05:21:00Identifier 54774- 6 Result Time 2019-02-26 05:21:00Unknown Test Item Value Reference Range Comments Unknown (test code = 36965-8) 3.6 g/dL Unknown 3.2-5.2 F Ordering Physician UnknownLaboratory Kcbzkxt7832-18-98 05:21:00Identifier 15883- 6 Result Time 2019-02-26 05:21:00Unknown Test Item Value Reference Range Comments Unknown (test code = 1742-6) 133 U/L Unknown 7-52 F Ordering Physician UnknownLaboratory Nqbgzgc4046-96-67 05:21:00Identifier 95414- 6 Result Time 2019-02-26 05:21:00Unknown Test Item Value Reference Range Comments Unknown (test code = 69003-5) 0.1 Unknown Unknown F Ordering Physician UnknownLaboratory Dnivabe9749-75-07 05:21:00Identifier 33725- 6 Result Time 2019-02-26 05:21:00Unknown Test Item Value Reference Range Comments Unknown (test code = 771-6) 0.0 10^3/ul Unknown Unknown F Ordering Physician UnknownLaboratory Hzosybn3856-28-13 05:21:00Identifier 88817- 6 Result Time 2019-02-26 05:21:00Unknown Test Item Value Reference Range Comments Unknown (test code = 770-8) 62.9 % Unknown Unknown F Ordering Physician UnknownLaboratory Wikcfzx6629-06-09 05:21:00Identifier 97262- 6 Result Time 2019-02-26 05:21:00Unknown Test Item Value Reference Range Comments Unknown (test code = 5905-5) 16.4 % Unknown Unknown F Ordering Physician UnknownLaboratory Yxaecrs9292-21-30 05:21:00Identifier 68612- 6 Result Time 2019-02-26 05:21:00Unknown Test Item Value Reference Range Comments Unknown (test code = 736-9) 16.5 % Unknown Unknown F Ordering Physician UnknownLaboratory Tfmjlxb9396-51-30 05:21:00Identifier 43134- 6 Result Time 2019-02-26 05:21:00Unknown Test Item Value Reference Range Comments Unknown (test code = 713-8) 3.4 % Unknown Unknown F Ordering Physician UnknownLaboratory Exfmqmg2235-43-10 05:21:00Identifier 34258- 6 Result Time 2019-02-26 05:21:00Unknown Test Item Value Reference Range Comments Unknown (test code = 706-2) 0.8 % Unknown Unknown F Ordering Physician UnknownLaboratory Nfjdfvg5085-45-12 05:21:00Identifier 11063- 6 Result Time 2019-02-26 05:21:00Unknown Test Item Value Reference Range Comments Unknown (test code = PAZ2432) 2.6 10^3/ul Unknown 1.5-7.7 F Ordering Physician UnknownLaboratory Hcguclg6209-85-41 05:21:00Identifier 26493- 6 Result Time 2019-02-26 05:21:00Unknown Test Item Value Reference Range Comments Unknown (test code = 742-7) 0.7 10^3/ul Unknown 0-0.8 F Ordering Physician UnknownLaboratory Gzwylzb5860-31-38 05:21:00Identifier 65222- 6 Result Time 2019-02-26 05:21:00Unknown Test Item Value Reference Range Comments Unknown (test code = 731-0) 0.7 10^3/ul Unknown 1.0-4.8 F Ordering Physician UnknownLaboratory Fbsujmu5358-60-49 05:21:00Identifier 61726- 6 Result Time 2019-02-26 05:21:00Unknown Test Item Value Reference Range Comments Unknown (test code = 711-2) 0.1 10^3/ul Unknown 0-0.6 F Ordering Physician UnknownLaboratory Dugxsyt1629-77-70 05:21:00Identifier 00694- 6 Result Time 2019-02-26 05:21:00Unknown Test Item Value Reference Range Comments Unknown (test code = 704-7) 0.0 10^3/ul Unknown 0-0.2 F Ordering Physician UnknownLaboratory Bgosffl6969-17-03 18:33:00Identifier 89036- 6 Result Time 2019-02-23 18:33:00Unknown Test Item Value Reference Range Comments Unknown (test code = 5643-2) 236 mg/dL Unknown 0-10 F Ordering Physician UnknownLaboratory Tyqdfvz8203-89-66 18:33:00Identifier 23151- 6 Result Time 2019-02-23 18:33:00Unknown Test Item Value Reference Range Comments Unknown (test code = 17565-1) 0.89 Unknown 0.82-1.09 F Ordering Physician UnknownLaboratory Vbiiwjb4910-25-64 18:33:00Identifier 95933- 6 Result Time 2019-02-23 18:33:00Unknown Test Item Value Reference Range Comments Unknown (test code = 20816-6) 31.2 seconds Unknown 26.0-38.0 F Ordering Physician UnknownLaboratory Zsprgyd6492-84-15 18:33:00Identifier 12896- 6 Result Time 2019-02-23 18:33:00Unknown Test Item Value Reference Range Comments Unknown (test code = 2524-7) 1.6 mmol/L Unknown 0.5-2.0 F Ordering Physician UnknownLaboratory Hasajhf8506-04-75 18:32:00Identifier 64202- 6 Result Time 2019-02-23 18:32:00Unknown Test Item Value Reference Range Comments Unknown (test code = 64108-1) 0.01 s/c Unknown Unknown F Ordering Physician Unknown
--- OUTSIDE RECORDS SUMMARY | 2019-10-05 20:53 | XMS REPORT ---
:1960 Author Organization [facility] Care Team Providers Name Role Phone Unavailable [...] Result Comments Laboratory Studies 2019-03-01 05:54:00 Identifier [id number] Result Time Unknown 2019-03-01 05:54:00 Test Item Value Reference Range Comments Unknown (test code = 2951-2) 136 mmol/L Unknown 135-145 F Ordering Physician UnknownLaboratory Vluysaz8156-00-91 05:54:00Identifier 94889- 6 Result Time 2019-03-01 05:54:00Unknown Test Item Value Reference Range Comments Unknown (test code = 2823-3) 4.4 mmol/L Unknown 3.5-5.0 F Ordering Physician UnknownLaboratory Waiyrja4447-37-06 05:54:00Identifier 94361- 6 Result Time 2019-03-01 05:54:00Unknown Test Item Value Reference Range Comments Unknown (test code = 15877-8) 2.5 mg/dL Unknown 1.9-2.7 F Ordering Physician UnknownLaboratory Tgzjtwj7585-54-84 05:54:00Identifier 59644- 6 Result Time 2019-03-01 05:54:00Unknown Test Item Value Reference Range Comments Unknown (test code = 2345-7) 95 mg/dL Unknown 70-100 F Ordering Physician UnknownLaboratory Fwkiogh1876-50-79 05:54:00Identifier 99092- 6 Result Time 2019-03-01 05:54:00Unknown Test Item Value Reference Range Comments Unknown (test code = 89950-7) 128.5 Unknown Unknown F Ordering Physician UnknownLaboratory Kuedqks0236-38-17 05:54:00Identifier 44002- 6 Result Time 2019-03-01 05:54:00Unknown Test Item Value Reference Range Comments Unknown (test code = NullTestCode) 155.4 Unknown Unknown F Ordering Physician UnknownLaboratory Ynhnwbw7486-13-25 05:54:00Identifier 16546- 6 Result Time 2019-03-01 05:54:00Unknown Test Item Value Reference Range Comments Unknown (test code = 2160-0) 0.64 mg/dL Unknown 0.67-1.17 F Ordering Physician UnknownLaboratory Sjtrnsw6170-38-99 05:54:00Identifier 64846- 6 Result Time 2019-03-01 05:54:00Unknown Test Item Value Reference Range Comments Unknown (test code = 2075-0) 102 mmol/L Unknown 101-111 F Ordering Physician UnknownLaboratory Ntdiwrz6838-58-78 05:54:00Identifier 42203- 6 Result Time 2019-03-01 05:54:00Unknown Test Item Value Reference Range Comments Unknown (test code = 2028-9) 29 mmol/L Unknown 22-32 F Ordering Physician UnknownLaboratory Wdgadyq8932-71-16 05:54:00Identifier 50059- 6 Result Time 2019-03-01 05:54:00Unknown Test Item Value Reference Range Comments Unknown (test code = 81334-3) 8.7 mg/dL Unknown 8.6-10.3 F Ordering Physician UnknownLaboratory Cileopp3331-58-07 05:54:00Identifier 31077- 6 Result Time 2019-03-01 05:54:00Unknown Test Item Value Reference Range Comments Unknown (test code = 3094-0) 18 mg/dL Unknown 6-24 F Ordering Physician UnknownLaboratory Gxgntsm2593-02-61 05:54:00Identifier 85800- 6 Result Time 2019-03-01 05:54:00Unknown Test Item Value Reference Range Comments Unknown (test code = 3097-3) 28.1 Unknown 8-20 F Ordering Physician UnknownLaboratory Upanwik3901-24-04 05:54:00Identifier 43465- 6 Result Time 2019-03-01 05:54:00Unknown Test Item Value Reference Range Comments Unknown (test code = 44146-0) 5 mmol/L Unknown 2-11 F Ordering Physician UnknownLaboratory Vcwxxih7130-68-74 08:50:00Identifier 45858- 6 Result Time 2019-02-27 08:50:00Unknown Test Item Value Reference Range Comments Unknown (test code = 13328-7) 5.2 10^3/uL Unknown 3.5-10.8 F Ordering Physician UnknownLaboratory Ezkoimt0130-44-04 08:50:00Identifier 11963- 6 Result Time 2019-02-27 08:50:00Unknown Test Item Value Reference Range Comments Unknown (test code = 788-0) 15 % Unknown 10-15 F Ordering Physician UnknownLaboratory Ijvfcqi3704-59-86 08:50:00Identifier 94745- 6 Result Time 2019-02-27 08:50:00Unknown Test Item Value Reference Range Comments Unknown (test code = 789-8) 3.43 10^6 /uL Unknown 4.18-5.48 F Ordering Physician UnknownLaboratory Huzhkxq5799-64-79 08:50:00Identifier 94710- 6 Result Time 2019-02-27 08:50:00Unknown Test Item Value Reference Range Comments Unknown (test code = 777-3) 144 10^3/uL Unknown 150-450 F Ordering Physician UnknownLaboratory Bkgtlhx9995-47-09 08:50:00Identifier 60898- 6 Result Time 2019-02-27 08:50:00Unknown Test Item Value Reference Range Comments Unknown (test code = 27231-3) 7.9 fL Unknown 7.4-10.4 F Ordering Physician UnknownLaboratory Kpsopuw4210-11-14 08:50:00Identifier 16447- 6 Result Time 2019-02-27 08:50:00Unknown Test Item Value Reference Range Comments Unknown (test code = 787-2) 97 fL Unknown 80-94 F Ordering Physician UnknownLaboratory Jlccmkd6934-90-16 08:50:00Identifier 56024- 6 Result Time 2019-02-27 08:50:00Unknown Test Item Value Reference Range Comments Unknown (test code = 786-4) 34 g/dL Unknown 31-36 F Ordering Physician UnknownLaboratory Wlhfvot7112-06-87 08:50:00Identifier 55984- 6 Result Time 2019-02-27 08:50:00Unknown Test Item Value Reference Range Comments Unknown (test code = 785-6) 33 pg Unknown 27-31 F Ordering Physician UnknownLaboratory Usubwle7185-64-58 08:50:00Identifier 33644- 6 Result Time 2019-02-27 08:50:00Unknown Test Item Value Reference Range Comments Unknown (test code = 718-7) 11.4 g/dL Unknown 14.0-18.0 F Ordering Physician UnknownLaboratory Cvksiqo6793-15-95 08:50:00Identifier 16346- 6 Result Time 2019-02-27 08:50:00Unknown Test Item Value Reference Range Comments Unknown (test code = 4544-3) 33 % Unknown 42-52 F Ordering Physician UnknownLaboratory Zvfjqyt1207-81-85 05:21:00Identifier 23736- 6 Result Time 2019-02-26 05:21:00Unknown Test Item Value Reference Range Comments Unknown (test code = 2885-2) 6.1 g/dL Unknown 6.4-8.9 F Ordering Physician UnknownLaboratory Bdahmof0774-78-04 05:21:00Identifier 11890- 6 Result Time 2019-02-26 05:21:00Unknown Test Item Value Reference Range Comments Unknown (test code = 1975-2) 0.90 mg/dL Unknown 0.2-1.0 F Ordering Physician UnknownLaboratory Xpfmseh5728-40-40 05:21:00Identifier 02305- 6 Result Time 2019-02-26 05:21:00Unknown Test Item Value Reference Range Comments Unknown (test code = 2777-1) 3.7 mg/dL Unknown 2.5-5.0 F Ordering Physician UnknownLaboratory Lriqnbn3909-28-33 05:21:00Identifier 88379- 6 Result Time 2019-02-26 05:21:00Unknown Test Item Value Reference Range Comments Unknown (test code = 1971-1) 0.6 mg/dL Unknown 0.3-1.0 F Ordering Physician UnknownLaboratory Alppfvy9176-23-18 05:21:00Identifier 96894- 6 Result Time 2019-02-26 05:21:00Unknown Test Item Value Reference Range Comments Unknown (test code = NullTestCode) 2.5 g/dL Unknown 2-4 F Ordering Physician UnknownLaboratory Fccvkio9107-30-94 05:21:00Identifier 18572- 6 Result Time 2019-02-26 05:21:00Unknown Test Item Value Reference Range Comments Unknown (test code = 1968-7) 0.30 mg/dL Unknown 0.03-0.18 F Ordering Physician UnknownLaboratory Hfcipjf8039-19-16 05:21:00Identifier 54639- 6 Result Time 2019-02-26 05:21:00Unknown Test Item Value Reference Range Comments Unknown (test code = 1920-8) 112 U/L Unknown 13-39 F Ordering Physician UnknownLaboratory Hszzncm8536-55-48 05:21:00Identifier 01711- 6 Result Time 2019-02-26 05:21:00Unknown Test Item Value Reference Range Comments Unknown (test code = 6768-6) 342 U/L Unknown 34-104 F Ordering Physician UnknownLaboratory Zytpwdt6672-60-45 05:21:00Identifier 07760- 6 Result Time 2019-02-26 05:21:00Unknown Test Item Value Reference Range Comments Unknown (test code = 1759-0) 1.4 Unknown 1-3 F Ordering Physician UnknownLaboratory Fnbziie4230-07-87 05:21:00Identifier 90358- 6 Result Time 2019-02-26 05:21:00Unknown Test Item Value Reference Range Comments Unknown (test code = 93038-1) 3.6 g/dL Unknown 3.2-5.2 F Ordering Physician UnknownLaboratory Mehztsq2984-08-54 05:21:00Identifier 91692- 6 Result Time 2019-02-26 05:21:00Unknown Test Item Value Reference Range Comments Unknown (test code = 1742-6) 133 U/L Unknown 7-52 F Ordering Physician UnknownLaboratory Mrldmzo8106-30-56 05:21:00Identifier 39125- 6 Result Time 2019-02-26 05:21:00Unknown Test Item Value Reference Range Comments Unknown (test code = 98614-9) 0.1 Unknown Unknown F Ordering Physician UnknownLaboratory Vbqacyk5480-87-97 05:21:00Identifier 23118- 6 Result Time 2019-02-26 05:21:00Unknown Test Item Value Reference Range Comments Unknown (test code = 771-6) 0.0 10^3/ul Unknown Unknown F Ordering Physician UnknownLaboratory Mmplldz3805-71-11 05:21:00Identifier 68344- 6 Result Time 2019-02-26 05:21:00Unknown Test Item Value Reference Range Comments Unknown (test code = 770-8) 62.9 % Unknown Unknown F Ordering Physician UnknownLaboratory Rbgpctb8901-24-05 05:21:00Identifier 15977- 6 Result Time 2019-02-26 05:21:00Unknown Test Item Value Reference Range Comments Unknown (test code = 5905-5) 16.4 % Unknown Unknown F Ordering Physician UnknownLaboratory Zfozjps3454-44-84 05:21:00Identifier 15672- 6 Result Time 2019-02-26 05:21:00Unknown Test Item Value Reference Range Comments Unknown (test code = 736-9) 16.5 % Unknown Unknown F Ordering Physician UnknownLaboratory Amptcce4346-27-03 05:21:00Identifier 49920- 6 Result Time 2019-02-26 05:21:00Unknown Test Item Value Reference Range Comments Unknown (test code = 713-8) 3.4 % Unknown Unknown F Ordering Physician UnknownLaboratory Xiboagj7990-07-27 05:21:00Identifier 78556- 6 Result Time 2019-02-26 05:21:00Unknown Test Item Value Reference Range Comments Unknown (test code = 706-2) 0.8 % Unknown Unknown F Ordering Physician UnknownLaboratory Mabmpgi9797-31-30 05:21:00Identifier 69928- 6 Result Time 2019-02-26 05:21:00Unknown Test Item Value Reference Range Comments Unknown (test code = WHT5635) 2.6 10^3/ul Unknown 1.5-7.7 F Ordering Physician UnknownLaboratory Ukmzrqf6040-81-86 05:21:00Identifier 01488- 6 Result Time 2019-02-26 05:21:00Unknown Test Item Value Reference Range Comments Unknown (test code = 742-7) 0.7 10^3/ul Unknown 0-0.8 F Ordering Physician UnknownLaboratory Phfyclh7680-38-72 05:21:00Identifier 05937- 6 Result Time 2019-02-26 05:21:00Unknown Test Item Value Reference Range Comments Unknown (test code = 731-0) 0.7 10^3/ul Unknown 1.0-4.8 F Ordering Physician UnknownLaboratory Nncrphx7128-69-23 05:21:00Identifier 37373- 6 Result Time 2019-02-26 05:21:00Unknown Test Item Value Reference Range Comments Unknown (test code = 711-2) 0.1 10^3/ul Unknown 0-0.6 F Ordering Physician UnknownLaboratory Sliiqxe8562-43-14 05:21:00Identifier 33750- 6 Result Time 2019-02-26 05:21:00Unknown Test Item Value Reference Range Comments Unknown (test code = 704-7) 0.0 10^3/ul Unknown 0-0.2 F Ordering Physician UnknownLaboratory Nwvvxjc2718-16-97 18:33:00Identifier 17271- 6 Result Time 2019-02-23 18:33:00Unknown Test Item Value Reference Range Comments Unknown (test code = 5643-2) 236 mg/dL Unknown 0-10 F Ordering Physician UnknownLaboratory Ohxywvr5155-84-65 18:33:00Identifier 79911- 6 Result Time 2019-02-23 18:33:00Unknown Test Item Value Reference Range Comments Unknown (test code = 08245-5) 0.89 Unknown 0.82-1.09 F Ordering Physician UnknownLaboratory Krhvkqz2597-93-04 18:33:00Identifier 70510- 6 Result Time 2019-02-23 18:33:00Unknown Test Item Value Reference Range Comments Unknown (test code = 21711-3) 31.2 seconds Unknown 26.0-38.0 F Ordering Physician UnknownLaboratory Hjwdeld9879-24-88 18:33:00Identifier 66821- 6 Result Time 2019-02-23 18:33:00Unknown Test Item Value Reference Range Comments Unknown (test code = 2524-7) 1.6 mmol/L Unknown 0.5-2.0 F Ordering Physician UnknownLaboratory Ezpfurt8142-17-13 18:32:00Identifier 17667- 6 Result Time 2019-02-23 18:32:00Unknown Test Item Value Reference Range Comments Unknown (test code = 85915-3) 0.01 s/c Unknown Unknown F Ordering Physician Unknown
--- OUTSIDE RECORDS SUMMARY | 2019-10-05 20:53 | XMS REPORT ---
:1960 Author Organization [facility] Care Team Providers Name Role Phone Unavailable [...] Result Comments Laboratory Studies 2019-03-01 05:54:00 Identifier [id number] Result Time Unknown 2019-03-01 05:54:00 Test Item Value Reference Range Comments Unknown (test code = 2951-2) 136 mmol/L Unknown 135-145 F Ordering Physician UnknownLaboratory Ngosden8479-95-41 05:54:00Identifier 99075- 6 Result Time 2019-03-01 05:54:00Unknown Test Item Value Reference Range Comments Unknown (test code = 2823-3) 4.4 mmol/L Unknown 3.5-5.0 F Ordering Physician UnknownLaboratory Mbrzvij4599-11-36 05:54:00Identifier 05283- 6 Result Time 2019-03-01 05:54:00Unknown Test Item Value Reference Range Comments Unknown (test code = 45002-7) 2.5 mg/dL Unknown 1.9-2.7 F Ordering Physician UnknownLaboratory Edvktod5223-09-73 05:54:00Identifier 34028- 6 Result Time 2019-03-01 05:54:00Unknown Test Item Value Reference Range Comments Unknown (test code = 2345-7) 95 mg/dL Unknown 70-100 F Ordering Physician UnknownLaboratory Xxdpzcp9792-39-71 05:54:00Identifier 74129- 6 Result Time 2019-03-01 05:54:00Unknown Test Item Value Reference Range Comments Unknown (test code = 25549-3) 128.5 Unknown Unknown F Ordering Physician UnknownLaboratory Vjzepxa9404-19-73 05:54:00Identifier 63327- 6 Result Time 2019-03-01 05:54:00Unknown Test Item Value Reference Range Comments Unknown (test code = NullTestCode) 155.4 Unknown Unknown F Ordering Physician UnknownLaboratory Zqvbkuz2251-31-42 05:54:00Identifier 92783- 6 Result Time 2019-03-01 05:54:00Unknown Test Item Value Reference Range Comments Unknown (test code = 2160-0) 0.64 mg/dL Unknown 0.67-1.17 F Ordering Physician UnknownLaboratory Kuszbey5152-46-76 05:54:00Identifier 15460- 6 Result Time 2019-03-01 05:54:00Unknown Test Item Value Reference Range Comments Unknown (test code = 2075-0) 102 mmol/L Unknown 101-111 F Ordering Physician UnknownLaboratory Druelgt2388-14-37 05:54:00Identifier 58506- 6 Result Time 2019-03-01 05:54:00Unknown Test Item Value Reference Range Comments Unknown (test code = 2028-9) 29 mmol/L Unknown 22-32 F Ordering Physician UnknownLaboratory Hhkhafl1742-61-65 05:54:00Identifier 53487- 6 Result Time 2019-03-01 05:54:00Unknown Test Item Value Reference Range Comments Unknown (test code = 80574-8) 8.7 mg/dL Unknown 8.6-10.3 F Ordering Physician UnknownLaboratory Ksbvhxr1538-68-33 05:54:00Identifier 53094- 6 Result Time 2019-03-01 05:54:00Unknown Test Item Value Reference Range Comments Unknown (test code = 3094-0) 18 mg/dL Unknown 6-24 F Ordering Physician UnknownLaboratory Hxvksid8303-54-28 05:54:00Identifier 00725- 6 Result Time 2019-03-01 05:54:00Unknown Test Item Value Reference Range Comments Unknown (test code = 3097-3) 28.1 Unknown 8-20 F Ordering Physician UnknownLaboratory Smpcdhq7527-88-56 05:54:00Identifier 68738- 6 Result Time 2019-03-01 05:54:00Unknown Test Item Value Reference Range Comments Unknown (test code = 69362-5) 5 mmol/L Unknown 2-11 F Ordering Physician UnknownLaboratory Eunabpa4638-61-67 08:50:00Identifier 07040- 6 Result Time 2019-02-27 08:50:00Unknown Test Item Value Reference Range Comments Unknown (test code = 85660-9) 5.2 10^3/uL Unknown 3.5-10.8 F Ordering Physician UnknownLaboratory Mtaunrl7360-65-23 08:50:00Identifier 93678- 6 Result Time 2019-02-27 08:50:00Unknown Test Item Value Reference Range Comments Unknown (test code = 788-0) 15 % Unknown 10-15 F Ordering Physician UnknownLaboratory Fexkxpz8290-13-46 08:50:00Identifier 58576- 6 Result Time 2019-02-27 08:50:00Unknown Test Item Value Reference Range Comments Unknown (test code = 789-8) 3.43 10^6 /uL Unknown 4.18-5.48 F Ordering Physician UnknownLaboratory Dgbnqrt6274-97-89 08:50:00Identifier 83280- 6 Result Time 2019-02-27 08:50:00Unknown Test Item Value Reference Range Comments Unknown (test code = 777-3) 144 10^3/uL Unknown 150-450 F Ordering Physician UnknownLaboratory Wqebzwj0601-97-49 08:50:00Identifier 29150- 6 Result Time 2019-02-27 08:50:00Unknown Test Item Value Reference Range Comments Unknown (test code = 33500-7) 7.9 fL Unknown 7.4-10.4 F Ordering Physician UnknownLaboratory Ovnkcmd2182-11-26 08:50:00Identifier 70852- 6 Result Time 2019-02-27 08:50:00Unknown Test Item Value Reference Range Comments Unknown (test code = 787-2) 97 fL Unknown 80-94 F Ordering Physician UnknownLaboratory Vuuucxm1781-71-12 08:50:00Identifier 43987- 6 Result Time 2019-02-27 08:50:00Unknown Test Item Value Reference Range Comments Unknown (test code = 786-4) 34 g/dL Unknown 31-36 F Ordering Physician UnknownLaboratory Rjzycvy4477-28-03 08:50:00Identifier 90754- 6 Result Time 2019-02-27 08:50:00Unknown Test Item Value Reference Range Comments Unknown (test code = 785-6) 33 pg Unknown 27-31 F Ordering Physician UnknownLaboratory Mvlpiex8202-77-63 08:50:00Identifier 81467- 6 Result Time 2019-02-27 08:50:00Unknown Test Item Value Reference Range Comments Unknown (test code = 718-7) 11.4 g/dL Unknown 14.0-18.0 F Ordering Physician UnknownLaboratory Bpxpszu4664-03-71 08:50:00Identifier 33073- 6 Result Time 2019-02-27 08:50:00Unknown Test Item Value Reference Range Comments Unknown (test code = 4544-3) 33 % Unknown 42-52 F Ordering Physician UnknownLaboratory Mzpdogo4663-08-12 05:21:00Identifier 15924- 6 Result Time 2019-02-26 05:21:00Unknown Test Item Value Reference Range Comments Unknown (test code = 2885-2) 6.1 g/dL Unknown 6.4-8.9 F Ordering Physician UnknownLaboratory Rtqqhuh7545-06-97 05:21:00Identifier 12104- 6 Result Time 2019-02-26 05:21:00Unknown Test Item Value Reference Range Comments Unknown (test code = 1975-2) 0.90 mg/dL Unknown 0.2-1.0 F Ordering Physician UnknownLaboratory Nbvtjdb8019-78-12 05:21:00Identifier 50830- 6 Result Time 2019-02-26 05:21:00Unknown Test Item Value Reference Range Comments Unknown (test code = 2777-1) 3.7 mg/dL Unknown 2.5-5.0 F Ordering Physician UnknownLaboratory Vunszlp3007-82-07 05:21:00Identifier 97833- 6 Result Time 2019-02-26 05:21:00Unknown Test Item Value Reference Range Comments Unknown (test code = 1971-1) 0.6 mg/dL Unknown 0.3-1.0 F Ordering Physician UnknownLaboratory Dgeqdgh0991-99-88 05:21:00Identifier 08701- 6 Result Time 2019-02-26 05:21:00Unknown Test Item Value Reference Range Comments Unknown (test code = NullTestCode) 2.5 g/dL Unknown 2-4 F Ordering Physician UnknownLaboratory Ryrpxzh6255-61-13 05:21:00Identifier 83373- 6 Result Time 2019-02-26 05:21:00Unknown Test Item Value Reference Range Comments Unknown (test code = 1968-7) 0.30 mg/dL Unknown 0.03-0.18 F Ordering Physician UnknownLaboratory Gmtwzav6276-86-83 05:21:00Identifier 82716- 6 Result Time 2019-02-26 05:21:00Unknown Test Item Value Reference Range Comments Unknown (test code = 1920-8) 112 U/L Unknown 13-39 F Ordering Physician UnknownLaboratory Tcjnxek2983-48-01 05:21:00Identifier 54346- 6 Result Time 2019-02-26 05:21:00Unknown Test Item Value Reference Range Comments Unknown (test code = 6768-6) 342 U/L Unknown 34-104 F Ordering Physician UnknownLaboratory Yzixoha6752-51-63 05:21:00Identifier 82871- 6 Result Time 2019-02-26 05:21:00Unknown Test Item Value Reference Range Comments Unknown (test code = 1759-0) 1.4 Unknown 1-3 F Ordering Physician UnknownLaboratory Mmqcooe8062-35-13 05:21:00Identifier 22139- 6 Result Time 2019-02-26 05:21:00Unknown Test Item Value Reference Range Comments Unknown (test code = 29342-0) 3.6 g/dL Unknown 3.2-5.2 F Ordering Physician UnknownLaboratory Mdrzvxr9318-59-13 05:21:00Identifier 70386- 6 Result Time 2019-02-26 05:21:00Unknown Test Item Value Reference Range Comments Unknown (test code = 1742-6) 133 U/L Unknown 7-52 F Ordering Physician UnknownLaboratory Swfxjmw3411-93-65 05:21:00Identifier 93894- 6 Result Time 2019-02-26 05:21:00Unknown Test Item Value Reference Range Comments Unknown (test code = 44039-6) 0.1 Unknown Unknown F Ordering Physician UnknownLaboratory Sufikba9380-06-23 05:21:00Identifier 96362- 6 Result Time 2019-02-26 05:21:00Unknown Test Item Value Reference Range Comments Unknown (test code = 771-6) 0.0 10^3/ul Unknown Unknown F Ordering Physician UnknownLaboratory Ggzsgau4052-09-75 05:21:00Identifier 68797- 6 Result Time 2019-02-26 05:21:00Unknown Test Item Value Reference Range Comments Unknown (test code = 770-8) 62.9 % Unknown Unknown F Ordering Physician UnknownLaboratory Wtvkfbc7552-01-83 05:21:00Identifier 24624- 6 Result Time 2019-02-26 05:21:00Unknown Test Item Value Reference Range Comments Unknown (test code = 5905-5) 16.4 % Unknown Unknown F Ordering Physician UnknownLaboratory Hqvzhtl6554-69-94 05:21:00Identifier 80474- 6 Result Time 2019-02-26 05:21:00Unknown Test Item Value Reference Range Comments Unknown (test code = 736-9) 16.5 % Unknown Unknown F Ordering Physician UnknownLaboratory Cwxkuwy2806-41-97 05:21:00Identifier 14046- 6 Result Time 2019-02-26 05:21:00Unknown Test Item Value Reference Range Comments Unknown (test code = 713-8) 3.4 % Unknown Unknown F Ordering Physician UnknownLaboratory Yxvejqf4774-73-66 05:21:00Identifier 59174- 6 Result Time 2019-02-26 05:21:00Unknown Test Item Value Reference Range Comments Unknown (test code = 706-2) 0.8 % Unknown Unknown F Ordering Physician UnknownLaboratory Prkdapq3493-93-13 05:21:00Identifier 69661- 6 Result Time 2019-02-26 05:21:00Unknown Test Item Value Reference Range Comments Unknown (test code = OBO9817) 2.6 10^3/ul Unknown 1.5-7.7 F Ordering Physician UnknownLaboratory Msogyhv7385-73-74 05:21:00Identifier 22917- 6 Result Time 2019-02-26 05:21:00Unknown Test Item Value Reference Range Comments Unknown (test code = 742-7) 0.7 10^3/ul Unknown 0-0.8 F Ordering Physician UnknownLaboratory Stvethy3507-38-02 05:21:00Identifier 67253- 6 Result Time 2019-02-26 05:21:00Unknown Test Item Value Reference Range Comments Unknown (test code = 731-0) 0.7 10^3/ul Unknown 1.0-4.8 F Ordering Physician UnknownLaboratory Sercxmb0336-74-20 05:21:00Identifier 33539- 6 Result Time 2019-02-26 05:21:00Unknown Test Item Value Reference Range Comments Unknown (test code = 711-2) 0.1 10^3/ul Unknown 0-0.6 F Ordering Physician UnknownLaboratory Ironnfu9705-59-46 05:21:00Identifier 64481- 6 Result Time 2019-02-26 05:21:00Unknown Test Item Value Reference Range Comments Unknown (test code = 704-7) 0.0 10^3/ul Unknown 0-0.2 F Ordering Physician UnknownLaboratory Svwviyc2906-94-00 18:33:00Identifier 28856- 6 Result Time 2019-02-23 18:33:00Unknown Test Item Value Reference Range Comments Unknown (test code = 5643-2) 236 mg/dL Unknown 0-10 F Ordering Physician UnknownLaboratory Vknphou9729-22-44 18:33:00Identifier 61701- 6 Result Time 2019-02-23 18:33:00Unknown Test Item Value Reference Range Comments Unknown (test code = 35556-0) 0.89 Unknown 0.82-1.09 F Ordering Physician UnknownLaboratory Yfmcmhq6661-15-20 18:33:00Identifier 54564- 6 Result Time 2019-02-23 18:33:00Unknown Test Item Value Reference Range Comments Unknown (test code = 52530-3) 31.2 seconds Unknown 26.0-38.0 F Ordering Physician UnknownLaboratory Quuylza2452-13-45 18:33:00Identifier 48856- 6 Result Time 2019-02-23 18:33:00Unknown Test Item Value Reference Range Comments Unknown (test code = 2524-7) 1.6 mmol/L Unknown 0.5-2.0 F Ordering Physician UnknownLaboratory Hjbszln4190-96-06 18:32:00Identifier 22609- 6 Result Time 2019-02-23 18:32:00Unknown Test Item Value Reference Range Comments Unknown (test code = 76574-8) 0.01 s/c Unknown Unknown F Ordering Physician Unknown
--- OUTSIDE RECORDS SUMMARY | 2019-10-05 20:53 | XMS REPORT ---
:1960 Author Organization [facility] Care Team Providers Name Role Phone Unavailable [...] Result Comments Laboratory Studies 2019-03-01 05:54:00 Identifier [id number] Result Time Unknown 2019-03-01 05:54:00 Test Item Value Reference Range Comments Unknown (test code = 2951-2) 136 mmol/L Unknown 135-145 F Ordering Physician UnknownLaboratory Pzjgkje2805-91-83 05:54:00Identifier 19652- 6 Result Time 2019-03-01 05:54:00Unknown Test Item Value Reference Range Comments Unknown (test code = 2823-3) 4.4 mmol/L Unknown 3.5-5.0 F Ordering Physician UnknownLaboratory Laiiibb4746-02-75 05:54:00Identifier 86299- 6 Result Time 2019-03-01 05:54:00Unknown Test Item Value Reference Range Comments Unknown (test code = 83532-4) 2.5 mg/dL Unknown 1.9-2.7 F Ordering Physician UnknownLaboratory Bdvvunv9229-53-37 05:54:00Identifier 90297- 6 Result Time 2019-03-01 05:54:00Unknown Test Item Value Reference Range Comments Unknown (test code = 2345-7) 95 mg/dL Unknown 70-100 F Ordering Physician UnknownLaboratory Kkmhwuj6695-61-25 05:54:00Identifier 56007- 6 Result Time 2019-03-01 05:54:00Unknown Test Item Value Reference Range Comments Unknown (test code = 17073-9) 128.5 Unknown Unknown F Ordering Physician UnknownLaboratory Fzrjuuq7622-90-82 05:54:00Identifier 87338- 6 Result Time 2019-03-01 05:54:00Unknown Test Item Value Reference Range Comments Unknown (test code = NullTestCode) 155.4 Unknown Unknown F Ordering Physician UnknownLaboratory Wthahnf9261-34-09 05:54:00Identifier 88227- 6 Result Time 2019-03-01 05:54:00Unknown Test Item Value Reference Range Comments Unknown (test code = 2160-0) 0.64 mg/dL Unknown 0.67-1.17 F Ordering Physician UnknownLaboratory Rvmiffa7007-22-82 05:54:00Identifier 74846- 6 Result Time 2019-03-01 05:54:00Unknown Test Item Value Reference Range Comments Unknown (test code = 2075-0) 102 mmol/L Unknown 101-111 F Ordering Physician UnknownLaboratory Xnairwd2965-22-51 05:54:00Identifier 43836- 6 Result Time 2019-03-01 05:54:00Unknown Test Item Value Reference Range Comments Unknown (test code = 2028-9) 29 mmol/L Unknown 22-32 F Ordering Physician UnknownLaboratory Teghize3134-84-14 05:54:00Identifier 66843- 6 Result Time 2019-03-01 05:54:00Unknown Test Item Value Reference Range Comments Unknown (test code = 75304-7) 8.7 mg/dL Unknown 8.6-10.3 F Ordering Physician UnknownLaboratory Dwpjnez4212-63-76 05:54:00Identifier 01111- 6 Result Time 2019-03-01 05:54:00Unknown Test Item Value Reference Range Comments Unknown (test code = 3094-0) 18 mg/dL Unknown 6-24 F Ordering Physician UnknownLaboratory Uiwmfqx2629-90-58 05:54:00Identifier 59680- 6 Result Time 2019-03-01 05:54:00Unknown Test Item Value Reference Range Comments Unknown (test code = 3097-3) 28.1 Unknown 8-20 F Ordering Physician UnknownLaboratory Zruwltf9766-82-11 05:54:00Identifier 26599- 6 Result Time 2019-03-01 05:54:00Unknown Test Item Value Reference Range Comments Unknown (test code = 61543-0) 5 mmol/L Unknown 2-11 F Ordering Physician UnknownLaboratory Wqoxdmk7424-15-84 08:50:00Identifier 16081- 6 Result Time 2019-02-27 08:50:00Unknown Test Item Value Reference Range Comments Unknown (test code = 35339-6) 5.2 10^3/uL Unknown 3.5-10.8 F Ordering Physician UnknownLaboratory Zqcuesj0790-53-17 08:50:00Identifier 57530- 6 Result Time 2019-02-27 08:50:00Unknown Test Item Value Reference Range Comments Unknown (test code = 788-0) 15 % Unknown 10-15 F Ordering Physician UnknownLaboratory Zsnljhf1971-62-98 08:50:00Identifier 17381- 6 Result Time 2019-02-27 08:50:00Unknown Test Item Value Reference Range Comments Unknown (test code = 789-8) 3.43 10^6 /uL Unknown 4.18-5.48 F Ordering Physician UnknownLaboratory Jjhwxvf0269-49-21 08:50:00Identifier 88165- 6 Result Time 2019-02-27 08:50:00Unknown Test Item Value Reference Range Comments Unknown (test code = 777-3) 144 10^3/uL Unknown 150-450 F Ordering Physician UnknownLaboratory Fpxpyig8138-49-68 08:50:00Identifier 89655- 6 Result Time 2019-02-27 08:50:00Unknown Test Item Value Reference Range Comments Unknown (test code = 05837-8) 7.9 fL Unknown 7.4-10.4 F Ordering Physician UnknownLaboratory Udtdkmp7850-54-61 08:50:00Identifier 45015- 6 Result Time 2019-02-27 08:50:00Unknown Test Item Value Reference Range Comments Unknown (test code = 787-2) 97 fL Unknown 80-94 F Ordering Physician UnknownLaboratory Xnboadu3076-48-16 08:50:00Identifier 29226- 6 Result Time 2019-02-27 08:50:00Unknown Test Item Value Reference Range Comments Unknown (test code = 786-4) 34 g/dL Unknown 31-36 F Ordering Physician UnknownLaboratory Zeinzej5277-56-33 08:50:00Identifier 31351- 6 Result Time 2019-02-27 08:50:00Unknown Test Item Value Reference Range Comments Unknown (test code = 785-6) 33 pg Unknown 27-31 F Ordering Physician UnknownLaboratory Oowtkcu5507-36-08 08:50:00Identifier 64081- 6 Result Time 2019-02-27 08:50:00Unknown Test Item Value Reference Range Comments Unknown (test code = 718-7) 11.4 g/dL Unknown 14.0-18.0 F Ordering Physician UnknownLaboratory Wkpqfug0982-08-71 08:50:00Identifier 02741- 6 Result Time 2019-02-27 08:50:00Unknown Test Item Value Reference Range Comments Unknown (test code = 4544-3) 33 % Unknown 42-52 F Ordering Physician UnknownLaboratory Mtygrhg1408-46-13 05:21:00Identifier 69572- 6 Result Time 2019-02-26 05:21:00Unknown Test Item Value Reference Range Comments Unknown (test code = 2885-2) 6.1 g/dL Unknown 6.4-8.9 F Ordering Physician UnknownLaboratory Greftex5282-41-70 05:21:00Identifier 37106- 6 Result Time 2019-02-26 05:21:00Unknown Test Item Value Reference Range Comments Unknown (test code = 1975-2) 0.90 mg/dL Unknown 0.2-1.0 F Ordering Physician UnknownLaboratory Zjrwqxa5779-71-56 05:21:00Identifier 70446- 6 Result Time 2019-02-26 05:21:00Unknown Test Item Value Reference Range Comments Unknown (test code = 2777-1) 3.7 mg/dL Unknown 2.5-5.0 F Ordering Physician UnknownLaboratory Vrbdxxn4020-73-36 05:21:00Identifier 25602- 6 Result Time 2019-02-26 05:21:00Unknown Test Item Value Reference Range Comments Unknown (test code = 1971-1) 0.6 mg/dL Unknown 0.3-1.0 F Ordering Physician UnknownLaboratory Fgbqoje5514-70-37 05:21:00Identifier 06384- 6 Result Time 2019-02-26 05:21:00Unknown Test Item Value Reference Range Comments Unknown (test code = NullTestCode) 2.5 g/dL Unknown 2-4 F Ordering Physician UnknownLaboratory Lpypkqd0295-96-50 05:21:00Identifier 95658- 6 Result Time 2019-02-26 05:21:00Unknown Test Item Value Reference Range Comments Unknown (test code = 1968-7) 0.30 mg/dL Unknown 0.03-0.18 F Ordering Physician UnknownLaboratory Clykder1165-80-76 05:21:00Identifier 05130- 6 Result Time 2019-02-26 05:21:00Unknown Test Item Value Reference Range Comments Unknown (test code = 1920-8) 112 U/L Unknown 13-39 F Ordering Physician UnknownLaboratory Fwecuua9154-77-80 05:21:00Identifier 85647- 6 Result Time 2019-02-26 05:21:00Unknown Test Item Value Reference Range Comments Unknown (test code = 6768-6) 342 U/L Unknown 34-104 F Ordering Physician UnknownLaboratory Orejxbu3875-24-97 05:21:00Identifier 66218- 6 Result Time 2019-02-26 05:21:00Unknown Test Item Value Reference Range Comments Unknown (test code = 1759-0) 1.4 Unknown 1-3 F Ordering Physician UnknownLaboratory Gfoblnc6966-00-49 05:21:00Identifier 05400- 6 Result Time 2019-02-26 05:21:00Unknown Test Item Value Reference Range Comments Unknown (test code = 18733-6) 3.6 g/dL Unknown 3.2-5.2 F Ordering Physician UnknownLaboratory Cqweuqe5420-93-29 05:21:00Identifier 49594- 6 Result Time 2019-02-26 05:21:00Unknown Test Item Value Reference Range Comments Unknown (test code = 1742-6) 133 U/L Unknown 7-52 F Ordering Physician UnknownLaboratory Jlymhpw8542-16-70 05:21:00Identifier 92215- 6 Result Time 2019-02-26 05:21:00Unknown Test Item Value Reference Range Comments Unknown (test code = 67510-8) 0.1 Unknown Unknown F Ordering Physician UnknownLaboratory Obpjqge3333-95-18 05:21:00Identifier 70230- 6 Result Time 2019-02-26 05:21:00Unknown Test Item Value Reference Range Comments Unknown (test code = 771-6) 0.0 10^3/ul Unknown Unknown F Ordering Physician UnknownLaboratory Bvvuqtt2490-37-45 05:21:00Identifier 92980- 6 Result Time 2019-02-26 05:21:00Unknown Test Item Value Reference Range Comments Unknown (test code = 770-8) 62.9 % Unknown Unknown F Ordering Physician UnknownLaboratory Okzkqwq5752-27-49 05:21:00Identifier 24649- 6 Result Time 2019-02-26 05:21:00Unknown Test Item Value Reference Range Comments Unknown (test code = 5905-5) 16.4 % Unknown Unknown F Ordering Physician UnknownLaboratory Wpoifma8998-99-86 05:21:00Identifier 58587- 6 Result Time 2019-02-26 05:21:00Unknown Test Item Value Reference Range Comments Unknown (test code = 736-9) 16.5 % Unknown Unknown F Ordering Physician UnknownLaboratory Iopcjgy5866-44-85 05:21:00Identifier 18638- 6 Result Time 2019-02-26 05:21:00Unknown Test Item Value Reference Range Comments Unknown (test code = 713-8) 3.4 % Unknown Unknown F Ordering Physician UnknownLaboratory Pejxdib6636-21-03 05:21:00Identifier 65786- 6 Result Time 2019-02-26 05:21:00Unknown Test Item Value Reference Range Comments Unknown (test code = 706-2) 0.8 % Unknown Unknown F Ordering Physician UnknownLaboratory Zhahzlw2414-60-57 05:21:00Identifier 73494- 6 Result Time 2019-02-26 05:21:00Unknown Test Item Value Reference Range Comments Unknown (test code = NIC7327) 2.6 10^3/ul Unknown 1.5-7.7 F Ordering Physician UnknownLaboratory Tccpshi3197-37-91 05:21:00Identifier 84594- 6 Result Time 2019-02-26 05:21:00Unknown Test Item Value Reference Range Comments Unknown (test code = 742-7) 0.7 10^3/ul Unknown 0-0.8 F Ordering Physician UnknownLaboratory Zqzzuyj6264-74-59 05:21:00Identifier 65550- 6 Result Time 2019-02-26 05:21:00Unknown Test Item Value Reference Range Comments Unknown (test code = 731-0) 0.7 10^3/ul Unknown 1.0-4.8 F Ordering Physician UnknownLaboratory Avchcuw9519-05-04 05:21:00Identifier 26677- 6 Result Time 2019-02-26 05:21:00Unknown Test Item Value Reference Range Comments Unknown (test code = 711-2) 0.1 10^3/ul Unknown 0-0.6 F Ordering Physician UnknownLaboratory Kzmuzuz6384-16-61 05:21:00Identifier 54758- 6 Result Time 2019-02-26 05:21:00Unknown Test Item Value Reference Range Comments Unknown (test code = 704-7) 0.0 10^3/ul Unknown 0-0.2 F Ordering Physician UnknownLaboratory Zoipglj5095-27-49 18:33:00Identifier 01017- 6 Result Time 2019-02-23 18:33:00Unknown Test Item Value Reference Range Comments Unknown (test code = 5643-2) 236 mg/dL Unknown 0-10 F Ordering Physician UnknownLaboratory Lkreghb9501-33-52 18:33:00Identifier 95285- 6 Result Time 2019-02-23 18:33:00Unknown Test Item Value Reference Range Comments Unknown (test code = 81480-9) 0.89 Unknown 0.82-1.09 F Ordering Physician UnknownLaboratory Pddsnmv1721-63-85 18:33:00Identifier 84206- 6 Result Time 2019-02-23 18:33:00Unknown Test Item Value Reference Range Comments Unknown (test code = 65524-4) 31.2 seconds Unknown 26.0-38.0 F Ordering Physician UnknownLaboratory Rewmghb3215-06-71 18:33:00Identifier 56837- 6 Result Time 2019-02-23 18:33:00Unknown Test Item Value Reference Range Comments Unknown (test code = 2524-7) 1.6 mmol/L Unknown 0.5-2.0 F Ordering Physician UnknownLaboratory Ejsnhtg8311-62-38 18:32:00Identifier 50514- 6 Result Time 2019-02-23 18:32:00Unknown Test Item Value Reference Range Comments Unknown (test code = 53311-2) 0.01 s/c Unknown Unknown F Ordering Physician Unknown
--- OUTSIDE RECORDS SUMMARY | 2019-10-05 20:53 | XMS REPORT ---
:1960 Author Organization [facility] Care Team Providers Name Role Phone Unavailable [...] Unknown Unknown Unknown 400 mg 400 mg 7-24 tablet tablet magnesium magnesium No Unknown Unknown [...] Result Comments Laboratory Studies 2019-03-01 05:54:00 Identifier 72418-1 Result Time Unknown 2019-03-01 05:54:00 Test Item Value Reference Range Comments Unknown (test code = 2951-2) 136 mmol/L Unknown 135-145 F Ordering Physician UnknownLaboratory Mbftowl7252-56-29 05:54:00Identifier 97300- 6 Result Time 2019-03-01 05:54:00Unknown Test Item Value Reference Range Comments Unknown (test code = 2823-3) 4.4 mmol/L Unknown 3.5-5.0 F Ordering Physician UnknownLaboratory Bxxlapo1523-81-26 05:54:00Identifier 10314- 6 Result Time 2019-03-01 05:54:00Unknown Test Item Value Reference Range Comments Unknown (test code = 51679-6) 2.5 mg/dL Unknown 1.9-2.7 F Ordering Physician UnknownLaboratory Gfbhphe6525-54-55 05:54:00Identifier 96831- 6 Result Time 2019-03-01 05:54:00Unknown Test Item Value Reference Range Comments Unknown (test code = 2345-7) 95 mg/dL Unknown 70-100 F Ordering Physician UnknownLaboratory Aqvznms0104-79-08 05:54:00Identifier 85745- 6 Result Time 2019-03-01 05:54:00Unknown Test Item Value Reference Range Comments Unknown (test code = 69519-5) 128.5 Unknown Unknown F Ordering Physician UnknownLaboratory Toxrklw4507-84-86 05:54:00Identifier 89990- 6 Result Time 2019-03-01 05:54:00Unknown Test Item Value Reference Range Comments Unknown (test code = NullTestCode) 155.4 Unknown Unknown F Ordering Physician UnknownLaboratory Kiagnjt8415-16-48 05:54:00Identifier 21087- 6 Result Time 2019-03-01 05:54:00Unknown Test Item Value Reference Range Comments Unknown (test code = 2160-0) 0.64 mg/dL Unknown 0.67-1.17 F Ordering Physician UnknownLaboratory Zmogqgv5572-70-14 05:54:00Identifier 22779- 6 Result Time 2019-03-01 05:54:00Unknown Test Item Value Reference Range Comments Unknown (test code = 2075-0) 102 mmol/L Unknown 101-111 F Ordering Physician UnknownLaboratory Nlubhbq3969-65-25 05:54:00Identifier 93641- 6 Result Time 2019-03-01 05:54:00Unknown Test Item Value Reference Range Comments Unknown (test code = 2028-9) 29 mmol/L Unknown 22-32 F Ordering Physician UnknownLaboratory Mrdanuf0630-58-44 05:54:00Identifier 73784- 6 Result Time 2019-03-01 05:54:00Unknown Test Item Value Reference Range Comments Unknown (test code = 74897-1) 8.7 mg/dL Unknown 8.6-10.3 F Ordering Physician UnknownLaboratory Nqiuylp4848-61-78 05:54:00Identifier 02517- 6 Result Time 2019-03-01 05:54:00Unknown Test Item Value Reference Range Comments Unknown (test code = 3094-0) 18 mg/dL Unknown 6-24 F Ordering Physician UnknownLaboratory Pfftskr2234-60-68 05:54:00Identifier 84285- 6 Result Time 2019-03-01 05:54:00Unknown Test Item Value Reference Range Comments Unknown (test code = 3097-3) 28.1 Unknown 8-20 F Ordering Physician UnknownLaboratory Iuxdluo5764-82-68 05:54:00Identifier 90809- 6 Result Time 2019-03-01 05:54:00Unknown Test Item Value Reference Range Comments Unknown (test code = 76660-8) 5 mmol/L Unknown 2-11 F Ordering Physician UnknownLaboratory Datddpt7896-82-60 08:50:00Identifier 92337- 6 Result Time 2019-02-27 08:50:00Unknown Test Item Value Reference Range Comments Unknown (test code = 85563-6) 5.2 10^3/uL Unknown 3.5-10.8 F Ordering Physician UnknownLaboratory Vsjppmj9284-08-50 08:50:00Identifier 02815- 6 Result Time 2019-02-27 08:50:00Unknown Test Item Value Reference Range Comments Unknown (test code = 788-0) 15 % Unknown 10-15 F Ordering Physician UnknownLaboratory Yymlppf6979-40-64 08:50:00Identifier 30249- 6 Result Time 2019-02-27 08:50:00Unknown Test Item Value Reference Range Comments Unknown (test code = 789-8) 3.43 10^6 /uL Unknown 4.18-5.48 F Ordering Physician UnknownLaboratory Ildklnv8540-20-67 08:50:00Identifier 77758- 6 Result Time 2019-02-27 08:50:00Unknown Test Item Value Reference Range Comments Unknown (test code = 777-3) 144 10^3/uL Unknown 150-450 F Ordering Physician UnknownLaboratory Sbkhkvt4324-88-42 08:50:00Identifier 43733- 6 Result Time 2019-02-27 08:50:00Unknown Test Item Value Reference Range Comments Unknown (test code = 69241-2) 7.9 fL Unknown 7.4-10.4 F Ordering Physician UnknownLaboratory Tojjgxp2698-43-00 08:50:00Identifier 45295- 6 Result Time 2019-02-27 08:50:00Unknown Test Item Value Reference Range Comments Unknown (test code = 787-2) 97 fL Unknown 80-94 F Ordering Physician UnknownLaboratory Iyxghhi8566-41-82 08:50:00Identifier 46585- 6 Result Time 2019-02-27 08:50:00Unknown Test Item Value Reference Range Comments Unknown (test code = 786-4) 34 g/dL Unknown 31-36 F Ordering Physician UnknownLaboratory Nwdqtll3365-38-67 08:50:00Identifier 79190- 6 Result Time 2019-02-27 08:50:00Unknown Test Item Value Reference Range Comments Unknown (test code = 785-6) 33 pg Unknown 27-31 F Ordering Physician UnknownLaboratory Pzbdgkf6205-40-18 08:50:00Identifier 16161- 6 Result Time 2019-02-27 08:50:00Unknown Test Item Value Reference Range Comments Unknown (test code = 718-7) 11.4 g/dL Unknown 14.0-18.0 F Ordering Physician UnknownLaboratory Ddsomow8910-51-53 08:50:00Identifier 25381- 6 Result Time 2019-02-27 08:50:00Unknown Test Item Value Reference Range Comments Unknown (test code = 4544-3) 33 % Unknown 42-52 F Ordering Physician UnknownLaboratory Mufvrpa7988-41-74 05:21:00Identifier 61660- 6 Result Time 2019-02-26 05:21:00Unknown Test Item Value Reference Range Comments Unknown (test code = 2885-2) 6.1 g/dL Unknown 6.4-8.9 F Ordering Physician UnknownLaboratory Lpiargp3670-21-76 05:21:00Identifier 76437- 6 Result Time 2019-02-26 05:21:00Unknown Test Item Value Reference Range Comments Unknown (test code = 1975-2) 0.90 mg/dL Unknown 0.2-1.0 F Ordering Physician UnknownLaboratory Umluizh5919-98-60 05:21:00Identifier 99640- 6 Result Time 2019-02-26 05:21:00Unknown Test Item Value Reference Range Comments Unknown (test code = 2777-1) 3.7 mg/dL Unknown 2.5-5.0 F Ordering Physician UnknownLaboratory Jxkylof0174-98-72 05:21:00Identifier 57212- 6 Result Time 2019-02-26 05:21:00Unknown Test Item Value Reference Range Comments Unknown (test code = 1971-1) 0.6 mg/dL Unknown 0.3-1.0 F Ordering Physician UnknownLaboratory Itsmhxn4940-34-06 05:21:00Identifier 89466- 6 Result Time 2019-02-26 05:21:00Unknown Test Item Value Reference Range Comments Unknown (test code = NullTestCode) 2.5 g/dL Unknown 2-4 F Ordering Physician UnknownLaboratory Okiqjdy0273-83-64 05:21:00Identifier 12516- 6 Result Time 2019-02-26 05:21:00Unknown Test Item Value Reference Range Comments Unknown (test code = 1968-7) 0.30 mg/dL Unknown 0.03-0.18 F Ordering Physician UnknownLaboratory Mkzhaub3101-68-04 05:21:00Identifier 23483- 6 Result Time 2019-02-26 05:21:00Unknown Test Item Value Reference Range Comments Unknown (test code = 1920-8) 112 U/L Unknown 13-39 F Ordering Physician UnknownLaboratory Gkopfip4184-65-17 05:21:00Identifier 21703- 6 Result Time 2019-02-26 05:21:00Unknown Test Item Value Reference Range Comments Unknown (test code = 6768-6) 342 U/L Unknown 34-104 F Ordering Physician UnknownLaboratory Zvjzpxf4900-69-64 05:21:00Identifier 64340- 6 Result Time 2019-02-26 05:21:00Unknown Test Item Value Reference Range Comments Unknown (test code = 1759-0) 1.4 Unknown 1-3 F Ordering Physician UnknownLaboratory Cklopfg4151-02-75 05:21:00Identifier 94466- 6 Result Time 2019-02-26 05:21:00Unknown Test Item Value Reference Range Comments Unknown (test code = 95692-1) 3.6 g/dL Unknown 3.2-5.2 F Ordering Physician UnknownLaboratory Liktduj8594-14-01 05:21:00Identifier 90147- 6 Result Time 2019-02-26 05:21:00Unknown Test Item Value Reference Range Comments Unknown (test code = 1742-6) 133 U/L Unknown 7-52 F Ordering Physician UnknownLaboratory Mfmjoyy0237-76-57 05:21:00Identifier 53730- 6 Result Time 2019-02-26 05:21:00Unknown Test Item Value Reference Range Comments Unknown (test code = 29878-5) 0.1 Unknown Unknown F Ordering Physician UnknownLaboratory Nzeczjd9427-25-03 05:21:00Identifier 26881- 6 Result Time 2019-02-26 05:21:00Unknown Test Item Value Reference Range Comments Unknown (test code = 771-6) 0.0 10^3/ul Unknown Unknown F Ordering Physician UnknownLaboratory Xlbqqvc6518-79-88 05:21:00Identifier 80881- 6 Result Time 2019-02-26 05:21:00Unknown Test Item Value Reference Range Comments Unknown (test code = 770-8) 62.9 % Unknown Unknown F Ordering Physician UnknownLaboratory Hioeepl0129-98-28 05:21:00Identifier 12317- 6 Result Time 2019-02-26 05:21:00Unknown Test Item Value Reference Range Comments Unknown (test code = 5905-5) 16.4 % Unknown Unknown F Ordering Physician UnknownLaboratory Nrojryp4495-13-51 05:21:00Identifier 51552- 6 Result Time 2019-02-26 05:21:00Unknown Test Item Value Reference Range Comments Unknown (test code = 736-9) 16.5 % Unknown Unknown F Ordering Physician UnknownLaboratory Nxzyddo2792-74-85 05:21:00Identifier 50249- 6 Result Time 2019-02-26 05:21:00Unknown Test Item Value Reference Range Comments Unknown (test code = 713-8) 3.4 % Unknown Unknown F Ordering Physician UnknownLaboratory Msykeld2663-67-14 05:21:00Identifier 65663- 6 Result Time 2019-02-26 05:21:00Unknown Test Item Value Reference Range Comments Unknown (test code = 706-2) 0.8 % Unknown Unknown F Ordering Physician UnknownLaboratory Zgpbloj0948-88-49 05:21:00Identifier 28048- 6 Result Time 2019-02-26 05:21:00Unknown Test Item Value Reference Range Comments Unknown (test code = UDK4982) 2.6 10^3/ul Unknown 1.5-7.7 F Ordering Physician UnknownLaboratory Hrrmhzx4894-97-99 05:21:00Identifier 71495- 6 Result Time 2019-02-26 05:21:00Unknown Test Item Value Reference Range Comments Unknown (test code = 742-7) 0.7 10^3/ul Unknown 0-0.8 F Ordering Physician UnknownLaboratory Dahilpt2069-52-81 05:21:00Identifier 35054- 6 Result Time 2019-02-26 05:21:00Unknown Test Item Value Reference Range Comments Unknown (test code = 731-0) 0.7 10^3/ul Unknown 1.0-4.8 F Ordering Physician UnknownLaboratory Cdkoqwv7637-78-33 05:21:00Identifier 73423- 6 Result Time 2019-02-26 05:21:00Unknown Test Item Value Reference Range Comments Unknown (test code = 711-2) 0.1 10^3/ul Unknown 0-0.6 F Ordering Physician UnknownLaboratory Myxtrtm9831-21-48 05:21:00Identifier 28699- 6 Result Time 2019-02-26 05:21:00Unknown Test Item Value Reference Range Comments Unknown (test code = 704-7) 0.0 10^3/ul Unknown 0-0.2 F Ordering Physician UnknownLaboratory Bewzyck5055-82-28 18:33:00Identifier 73054- 6 Result Time 2019-02-23 18:33:00Unknown Test Item Value Reference Range Comments Unknown (test code = 5643-2) 236 mg/dL Unknown 0-10 F Ordering Physician UnknownLaboratory Yfwuczg6272-11-66 18:33:00Identifier 46596- 6 Result Time 2019-02-23 18:33:00Unknown Test Item Value Reference Range Comments Unknown (test code = 50197-3) 0.89 Unknown 0.82-1.09 F Ordering Physician UnknownLaboratory Hswrjws0691-98-31 18:33:00Identifier 07771- 6 Result Time 2019-02-23 18:33:00Unknown Test Item Value Reference Range Comments Unknown (test code = 34845-7) 31.2 seconds Unknown 26.0-38.0 F Ordering Physician UnknownLaboratory Qftikdw0609-74-41 18:33:00Identifier 06092- 6 Result Time 2019-02-23 18:33:00Unknown Test Item Value Reference Range Comments Unknown (test code = 2524-7) 1.6 mmol/L Unknown 0.5-2.0 F Ordering Physician UnknownLaboratory Aotcgmi5091-11-48 18:32:00Identifier 92776- 6 Result Time 2019-02-23 18:32:00Unknown Test Item Value Reference Range Comments Unknown (test code = 06259-1) 0.01 s/c Unknown Unknown F Ordering Physician Unknown
--- OUTSIDE RECORDS SUMMARY | 2019-10-05 20:53 | XMS REPORT ---
:1960 Author Organization [facility] Care Team Providers Name Role Phone Unavailable [...] Result Comments Laboratory Studies 2019-03-01 05:54:00 Identifier [id number] Result Time Unknown 2019-03-01 05:54:00 Test Item Value Reference Range Comments Unknown (test code = 2951-2) 136 mmol/L Unknown 135-145 F Ordering Physician UnknownLaboratory Anfbanl3189-35-21 05:54:00Identifier 67898- 6 Result Time 2019-03-01 05:54:00Unknown Test Item Value Reference Range Comments Unknown (test code = 2823-3) 4.4 mmol/L Unknown 3.5-5.0 F Ordering Physician UnknownLaboratory Zohdxja8014-74-97 05:54:00Identifier 52588- 6 Result Time 2019-03-01 05:54:00Unknown Test Item Value Reference Range Comments Unknown (test code = 50870-1) 2.5 mg/dL Unknown 1.9-2.7 F Ordering Physician UnknownLaboratory Sgkfzjb5962-45-71 05:54:00Identifier 45154- 6 Result Time 2019-03-01 05:54:00Unknown Test Item Value Reference Range Comments Unknown (test code = 2345-7) 95 mg/dL Unknown 70-100 F Ordering Physician UnknownLaboratory Lczpuym5669-41-39 05:54:00Identifier 67398- 6 Result Time 2019-03-01 05:54:00Unknown Test Item Value Reference Range Comments Unknown (test code = 81173-2) 128.5 Unknown Unknown F Ordering Physician UnknownLaboratory Rlechbb3903-00-20 05:54:00Identifier 89299- 6 Result Time 2019-03-01 05:54:00Unknown Test Item Value Reference Range Comments Unknown (test code = NullTestCode) 155.4 Unknown Unknown F Ordering Physician UnknownLaboratory Vvzmlsy3997-69-53 05:54:00Identifier 15912- 6 Result Time 2019-03-01 05:54:00Unknown Test Item Value Reference Range Comments Unknown (test code = 2160-0) 0.64 mg/dL Unknown 0.67-1.17 F Ordering Physician UnknownLaboratory Itnttpq5173-05-99 05:54:00Identifier 92926- 6 Result Time 2019-03-01 05:54:00Unknown Test Item Value Reference Range Comments Unknown (test code = 2075-0) 102 mmol/L Unknown 101-111 F Ordering Physician UnknownLaboratory Vswzupv8873-57-50 05:54:00Identifier 29146- 6 Result Time 2019-03-01 05:54:00Unknown Test Item Value Reference Range Comments Unknown (test code = 2028-9) 29 mmol/L Unknown 22-32 F Ordering Physician UnknownLaboratory Yqykxla7556-54-78 05:54:00Identifier 69481- 6 Result Time 2019-03-01 05:54:00Unknown Test Item Value Reference Range Comments Unknown (test code = 29495-8) 8.7 mg/dL Unknown 8.6-10.3 F Ordering Physician UnknownLaboratory Auwtcyn6209-36-30 05:54:00Identifier 16036- 6 Result Time 2019-03-01 05:54:00Unknown Test Item Value Reference Range Comments Unknown (test code = 3094-0) 18 mg/dL Unknown 6-24 F Ordering Physician UnknownLaboratory Ypdlcah9779-69-03 05:54:00Identifier 10733- 6 Result Time 2019-03-01 05:54:00Unknown Test Item Value Reference Range Comments Unknown (test code = 3097-3) 28.1 Unknown 8-20 F Ordering Physician UnknownLaboratory Kazejtg2001-53-71 05:54:00Identifier 15681- 6 Result Time 2019-03-01 05:54:00Unknown Test Item Value Reference Range Comments Unknown (test code = 89923-0) 5 mmol/L Unknown 2-11 F Ordering Physician UnknownLaboratory Jofsssy0134-64-59 08:50:00Identifier 52077- 6 Result Time 2019-02-27 08:50:00Unknown Test Item Value Reference Range Comments Unknown (test code = 91120-8) 5.2 10^3/uL Unknown 3.5-10.8 F Ordering Physician UnknownLaboratory Oyxsjfo0221-69-56 08:50:00Identifier 61374- 6 Result Time 2019-02-27 08:50:00Unknown Test Item Value Reference Range Comments Unknown (test code = 788-0) 15 % Unknown 10-15 F Ordering Physician UnknownLaboratory Cyylpcx7907-17-17 08:50:00Identifier 54156- 6 Result Time 2019-02-27 08:50:00Unknown Test Item Value Reference Range Comments Unknown (test code = 789-8) 3.43 10^6 /uL Unknown 4.18-5.48 F Ordering Physician UnknownLaboratory Crwzzse4392-47-73 08:50:00Identifier 37223- 6 Result Time 2019-02-27 08:50:00Unknown Test Item Value Reference Range Comments Unknown (test code = 777-3) 144 10^3/uL Unknown 150-450 F Ordering Physician UnknownLaboratory Pciayzi3966-11-62 08:50:00Identifier 55837- 6 Result Time 2019-02-27 08:50:00Unknown Test Item Value Reference Range Comments Unknown (test code = 74847-2) 7.9 fL Unknown 7.4-10.4 F Ordering Physician UnknownLaboratory Ewfqdvl4854-13-45 08:50:00Identifier 04489- 6 Result Time 2019-02-27 08:50:00Unknown Test Item Value Reference Range Comments Unknown (test code = 787-2) 97 fL Unknown 80-94 F Ordering Physician UnknownLaboratory Qzksypn4252-81-87 08:50:00Identifier 30214- 6 Result Time 2019-02-27 08:50:00Unknown Test Item Value Reference Range Comments Unknown (test code = 786-4) 34 g/dL Unknown 31-36 F Ordering Physician UnknownLaboratory Lxwfxdv7561-51-37 08:50:00Identifier 72778- 6 Result Time 2019-02-27 08:50:00Unknown Test Item Value Reference Range Comments Unknown (test code = 785-6) 33 pg Unknown 27-31 F Ordering Physician UnknownLaboratory Vsheykx4248-38-10 08:50:00Identifier 03240- 6 Result Time 2019-02-27 08:50:00Unknown Test Item Value Reference Range Comments Unknown (test code = 718-7) 11.4 g/dL Unknown 14.0-18.0 F Ordering Physician UnknownLaboratory Kcafzmc8664-38-12 08:50:00Identifier 77855- 6 Result Time 2019-02-27 08:50:00Unknown Test Item Value Reference Range Comments Unknown (test code = 4544-3) 33 % Unknown 42-52 F Ordering Physician UnknownLaboratory Bgqmhtc0834-33-31 05:21:00Identifier 13518- 6 Result Time 2019-02-26 05:21:00Unknown Test Item Value Reference Range Comments Unknown (test code = 2885-2) 6.1 g/dL Unknown 6.4-8.9 F Ordering Physician UnknownLaboratory Khwddoz9752-64-63 05:21:00Identifier 47141- 6 Result Time 2019-02-26 05:21:00Unknown Test Item Value Reference Range Comments Unknown (test code = 1975-2) 0.90 mg/dL Unknown 0.2-1.0 F Ordering Physician UnknownLaboratory Paoerei3576-03-26 05:21:00Identifier 09973- 6 Result Time 2019-02-26 05:21:00Unknown Test Item Value Reference Range Comments Unknown (test code = 2777-1) 3.7 mg/dL Unknown 2.5-5.0 F Ordering Physician UnknownLaboratory Bpqqeyv4698-76-27 05:21:00Identifier 52112- 6 Result Time 2019-02-26 05:21:00Unknown Test Item Value Reference Range Comments Unknown (test code = 1971-1) 0.6 mg/dL Unknown 0.3-1.0 F Ordering Physician UnknownLaboratory Kwviwpm7727-71-56 05:21:00Identifier 48613- 6 Result Time 2019-02-26 05:21:00Unknown Test Item Value Reference Range Comments Unknown (test code = NullTestCode) 2.5 g/dL Unknown 2-4 F Ordering Physician UnknownLaboratory Lfzucfy8088-09-47 05:21:00Identifier 97861- 6 Result Time 2019-02-26 05:21:00Unknown Test Item Value Reference Range Comments Unknown (test code = 1968-7) 0.30 mg/dL Unknown 0.03-0.18 F Ordering Physician UnknownLaboratory Btdydpq9941-01-98 05:21:00Identifier 47644- 6 Result Time 2019-02-26 05:21:00Unknown Test Item Value Reference Range Comments Unknown (test code = 1920-8) 112 U/L Unknown 13-39 F Ordering Physician UnknownLaboratory Mlyjyof7402-18-51 05:21:00Identifier 55038- 6 Result Time 2019-02-26 05:21:00Unknown Test Item Value Reference Range Comments Unknown (test code = 6768-6) 342 U/L Unknown 34-104 F Ordering Physician UnknownLaboratory Soieqli8339-65-23 05:21:00Identifier 23255- 6 Result Time 2019-02-26 05:21:00Unknown Test Item Value Reference Range Comments Unknown (test code = 1759-0) 1.4 Unknown 1-3 F Ordering Physician UnknownLaboratory Avkzcww0691-99-42 05:21:00Identifier 40124- 6 Result Time 2019-02-26 05:21:00Unknown Test Item Value Reference Range Comments Unknown (test code = 40178-5) 3.6 g/dL Unknown 3.2-5.2 F Ordering Physician UnknownLaboratory Lkafhfk0920-96-83 05:21:00Identifier 94827- 6 Result Time 2019-02-26 05:21:00Unknown Test Item Value Reference Range Comments Unknown (test code = 1742-6) 133 U/L Unknown 7-52 F Ordering Physician UnknownLaboratory Xzpeozx4609-95-48 05:21:00Identifier 98081- 6 Result Time 2019-02-26 05:21:00Unknown Test Item Value Reference Range Comments Unknown (test code = 03479-1) 0.1 Unknown Unknown F Ordering Physician UnknownLaboratory Voogkab2564-30-19 05:21:00Identifier 91205- 6 Result Time 2019-02-26 05:21:00Unknown Test Item Value Reference Range Comments Unknown (test code = 771-6) 0.0 10^3/ul Unknown Unknown F Ordering Physician UnknownLaboratory Wfgtoea2275-08-67 05:21:00Identifier 68965- 6 Result Time 2019-02-26 05:21:00Unknown Test Item Value Reference Range Comments Unknown (test code = 770-8) 62.9 % Unknown Unknown F Ordering Physician UnknownLaboratory Rzrutcz4138-15-65 05:21:00Identifier 19142- 6 Result Time 2019-02-26 05:21:00Unknown Test Item Value Reference Range Comments Unknown (test code = 5905-5) 16.4 % Unknown Unknown F Ordering Physician UnknownLaboratory Auxrkjb9265-05-69 05:21:00Identifier 61378- 6 Result Time 2019-02-26 05:21:00Unknown Test Item Value Reference Range Comments Unknown (test code = 736-9) 16.5 % Unknown Unknown F Ordering Physician UnknownLaboratory Gizvknm8014-69-04 05:21:00Identifier 55935- 6 Result Time 2019-02-26 05:21:00Unknown Test Item Value Reference Range Comments Unknown (test code = 713-8) 3.4 % Unknown Unknown F Ordering Physician UnknownLaboratory Ianwzle0990-37-27 05:21:00Identifier 71407- 6 Result Time 2019-02-26 05:21:00Unknown Test Item Value Reference Range Comments Unknown (test code = 706-2) 0.8 % Unknown Unknown F Ordering Physician UnknownLaboratory Kucpdlc9642-78-74 05:21:00Identifier 73715- 6 Result Time 2019-02-26 05:21:00Unknown Test Item Value Reference Range Comments Unknown (test code = MSX7689) 2.6 10^3/ul Unknown 1.5-7.7 F Ordering Physician UnknownLaboratory Erckkku8911-46-49 05:21:00Identifier 92449- 6 Result Time 2019-02-26 05:21:00Unknown Test Item Value Reference Range Comments Unknown (test code = 742-7) 0.7 10^3/ul Unknown 0-0.8 F Ordering Physician UnknownLaboratory Fsnjsxb3470-45-77 05:21:00Identifier 51818- 6 Result Time 2019-02-26 05:21:00Unknown Test Item Value Reference Range Comments Unknown (test code = 731-0) 0.7 10^3/ul Unknown 1.0-4.8 F Ordering Physician UnknownLaboratory Ebilnui2559-36-49 05:21:00Identifier 00399- 6 Result Time 2019-02-26 05:21:00Unknown Test Item Value Reference Range Comments Unknown (test code = 711-2) 0.1 10^3/ul Unknown 0-0.6 F Ordering Physician UnknownLaboratory Mswvacn6526-84-23 05:21:00Identifier 08812- 6 Result Time 2019-02-26 05:21:00Unknown Test Item Value Reference Range Comments Unknown (test code = 704-7) 0.0 10^3/ul Unknown 0-0.2 F Ordering Physician UnknownLaboratory Ioaikde5926-81-09 18:33:00Identifier 42510- 6 Result Time 2019-02-23 18:33:00Unknown Test Item Value Reference Range Comments Unknown (test code = 5643-2) 236 mg/dL Unknown 0-10 F Ordering Physician UnknownLaboratory Gqdbcfa0584-12-48 18:33:00Identifier 67767- 6 Result Time 2019-02-23 18:33:00Unknown Test Item Value Reference Range Comments Unknown (test code = 07509-2) 0.89 Unknown 0.82-1.09 F Ordering Physician UnknownLaboratory Konnbsl2645-83-06 18:33:00Identifier 37495- 6 Result Time 2019-02-23 18:33:00Unknown Test Item Value Reference Range Comments Unknown (test code = 41578-6) 31.2 seconds Unknown 26.0-38.0 F Ordering Physician UnknownLaboratory Cftoqry2215-94-70 18:33:00Identifier 24023- 6 Result Time 2019-02-23 18:33:00Unknown Test Item Value Reference Range Comments Unknown (test code = 2524-7) 1.6 mmol/L Unknown 0.5-2.0 F Ordering Physician UnknownLaboratory Woenhls5590-41-28 18:32:00Identifier 45521- 6 Result Time 2019-02-23 18:32:00Unknown Test Item Value Reference Range Comments Unknown (test code = 02139-3) 0.01 s/c Unknown Unknown F Ordering Physician Unknown
--- OUTSIDE RECORDS SUMMARY | 2019-10-05 20:53 | XMS REPORT ---
:1960 Author Organization [facility] Care Team Providers Name Role Phone Unavailable [...] Result Comments Laboratory Studies 2019-03-01 05:54:00 Identifier [id number] Result Time Unknown 2019-03-01 05:54:00 Test Item Value Reference Range Comments Unknown (test code = 2951-2) 136 mmol/L Unknown 135-145 F Ordering Physician UnknownLaboratory Ekbxoxe2068-83-63 05:54:00Identifier 61341- 6 Result Time 2019-03-01 05:54:00Unknown Test Item Value Reference Range Comments Unknown (test code = 2823-3) 4.4 mmol/L Unknown 3.5-5.0 F Ordering Physician UnknownLaboratory Cyhbehj4097-16-59 05:54:00Identifier 20637- 6 Result Time 2019-03-01 05:54:00Unknown Test Item Value Reference Range Comments Unknown (test code = 84922-7) 2.5 mg/dL Unknown 1.9-2.7 F Ordering Physician UnknownLaboratory Propjsn3265-09-93 05:54:00Identifier 46151- 6 Result Time 2019-03-01 05:54:00Unknown Test Item Value Reference Range Comments Unknown (test code = 2345-7) 95 mg/dL Unknown 70-100 F Ordering Physician UnknownLaboratory Wwfsrol6564-47-20 05:54:00Identifier 68676- 6 Result Time 2019-03-01 05:54:00Unknown Test Item Value Reference Range Comments Unknown (test code = 69885-5) 128.5 Unknown Unknown F Ordering Physician UnknownLaboratory Tgwoxfk5098-18-57 05:54:00Identifier 76779- 6 Result Time 2019-03-01 05:54:00Unknown Test Item Value Reference Range Comments Unknown (test code = NullTestCode) 155.4 Unknown Unknown F Ordering Physician UnknownLaboratory Nvgoxkp7596-39-07 05:54:00Identifier 24602- 6 Result Time 2019-03-01 05:54:00Unknown Test Item Value Reference Range Comments Unknown (test code = 2160-0) 0.64 mg/dL Unknown 0.67-1.17 F Ordering Physician UnknownLaboratory Zsxzvii3650-72-51 05:54:00Identifier 34386- 6 Result Time 2019-03-01 05:54:00Unknown Test Item Value Reference Range Comments Unknown (test code = 2075-0) 102 mmol/L Unknown 101-111 F Ordering Physician UnknownLaboratory Qlnqfab3189-57-63 05:54:00Identifier 03890- 6 Result Time 2019-03-01 05:54:00Unknown Test Item Value Reference Range Comments Unknown (test code = 2028-9) 29 mmol/L Unknown 22-32 F Ordering Physician UnknownLaboratory Etaaaqv0962-18-62 05:54:00Identifier 69838- 6 Result Time 2019-03-01 05:54:00Unknown Test Item Value Reference Range Comments Unknown (test code = 55770-0) 8.7 mg/dL Unknown 8.6-10.3 F Ordering Physician UnknownLaboratory Zqckigl1220-80-18 05:54:00Identifier 85456- 6 Result Time 2019-03-01 05:54:00Unknown Test Item Value Reference Range Comments Unknown (test code = 3094-0) 18 mg/dL Unknown 6-24 F Ordering Physician UnknownLaboratory Ybrjcuy4086-31-98 05:54:00Identifier 67341- 6 Result Time 2019-03-01 05:54:00Unknown Test Item Value Reference Range Comments Unknown (test code = 3097-3) 28.1 Unknown 8-20 F Ordering Physician UnknownLaboratory Otzklxs0095-16-90 05:54:00Identifier 32268- 6 Result Time 2019-03-01 05:54:00Unknown Test Item Value Reference Range Comments Unknown (test code = 10699-8) 5 mmol/L Unknown 2-11 F Ordering Physician UnknownLaboratory Aganbbm5200-34-13 08:50:00Identifier 47279- 6 Result Time 2019-02-27 08:50:00Unknown Test Item Value Reference Range Comments Unknown (test code = 17324-8) 5.2 10^3/uL Unknown 3.5-10.8 F Ordering Physician UnknownLaboratory Ygjdosj6142-06-80 08:50:00Identifier 74994- 6 Result Time 2019-02-27 08:50:00Unknown Test Item Value Reference Range Comments Unknown (test code = 788-0) 15 % Unknown 10-15 F Ordering Physician UnknownLaboratory Fwwaray0523-53-75 08:50:00Identifier 21679- 6 Result Time 2019-02-27 08:50:00Unknown Test Item Value Reference Range Comments Unknown (test code = 789-8) 3.43 10^6 /uL Unknown 4.18-5.48 F Ordering Physician UnknownLaboratory Oasmoka4741-93-90 08:50:00Identifier 96506- 6 Result Time 2019-02-27 08:50:00Unknown Test Item Value Reference Range Comments Unknown (test code = 777-3) 144 10^3/uL Unknown 150-450 F Ordering Physician UnknownLaboratory Flmfnae7280-49-68 08:50:00Identifier 71316- 6 Result Time 2019-02-27 08:50:00Unknown Test Item Value Reference Range Comments Unknown (test code = 08592-5) 7.9 fL Unknown 7.4-10.4 F Ordering Physician UnknownLaboratory Tdupvva7382-13-59 08:50:00Identifier 91026- 6 Result Time 2019-02-27 08:50:00Unknown Test Item Value Reference Range Comments Unknown (test code = 787-2) 97 fL Unknown 80-94 F Ordering Physician UnknownLaboratory Bijkvmd3117-17-35 08:50:00Identifier 59490- 6 Result Time 2019-02-27 08:50:00Unknown Test Item Value Reference Range Comments Unknown (test code = 786-4) 34 g/dL Unknown 31-36 F Ordering Physician UnknownLaboratory Kpzgvpz8916-11-98 08:50:00Identifier 06667- 6 Result Time 2019-02-27 08:50:00Unknown Test Item Value Reference Range Comments Unknown (test code = 785-6) 33 pg Unknown 27-31 F Ordering Physician UnknownLaboratory Ocjxhlg5182-82-11 08:50:00Identifier 64423- 6 Result Time 2019-02-27 08:50:00Unknown Test Item Value Reference Range Comments Unknown (test code = 718-7) 11.4 g/dL Unknown 14.0-18.0 F Ordering Physician UnknownLaboratory Vpzgyqa3928-85-82 08:50:00Identifier 52393- 6 Result Time 2019-02-27 08:50:00Unknown Test Item Value Reference Range Comments Unknown (test code = 4544-3) 33 % Unknown 42-52 F Ordering Physician UnknownLaboratory Fypjfpw1861-44-66 05:21:00Identifier 08766- 6 Result Time 2019-02-26 05:21:00Unknown Test Item Value Reference Range Comments Unknown (test code = 2885-2) 6.1 g/dL Unknown 6.4-8.9 F Ordering Physician UnknownLaboratory Apbjjgb6978-80-93 05:21:00Identifier 63463- 6 Result Time 2019-02-26 05:21:00Unknown Test Item Value Reference Range Comments Unknown (test code = 1975-2) 0.90 mg/dL Unknown 0.2-1.0 F Ordering Physician UnknownLaboratory Oetqxya2160-60-84 05:21:00Identifier 65926- 6 Result Time 2019-02-26 05:21:00Unknown Test Item Value Reference Range Comments Unknown (test code = 2777-1) 3.7 mg/dL Unknown 2.5-5.0 F Ordering Physician UnknownLaboratory Leojzme6985-89-86 05:21:00Identifier 51744- 6 Result Time 2019-02-26 05:21:00Unknown Test Item Value Reference Range Comments Unknown (test code = 1971-1) 0.6 mg/dL Unknown 0.3-1.0 F Ordering Physician UnknownLaboratory Vutwpvm4472-97-54 05:21:00Identifier 44084- 6 Result Time 2019-02-26 05:21:00Unknown Test Item Value Reference Range Comments Unknown (test code = NullTestCode) 2.5 g/dL Unknown 2-4 F Ordering Physician UnknownLaboratory Ccordpd9775-47-80 05:21:00Identifier 38593- 6 Result Time 2019-02-26 05:21:00Unknown Test Item Value Reference Range Comments Unknown (test code = 1968-7) 0.30 mg/dL Unknown 0.03-0.18 F Ordering Physician UnknownLaboratory Sngpgzx6111-08-90 05:21:00Identifier 81418- 6 Result Time 2019-02-26 05:21:00Unknown Test Item Value Reference Range Comments Unknown (test code = 1920-8) 112 U/L Unknown 13-39 F Ordering Physician UnknownLaboratory Vclfsvs5589-11-10 05:21:00Identifier 88501- 6 Result Time 2019-02-26 05:21:00Unknown Test Item Value Reference Range Comments Unknown (test code = 6768-6) 342 U/L Unknown 34-104 F Ordering Physician UnknownLaboratory Qjdjpvd6184-44-41 05:21:00Identifier 93779- 6 Result Time 2019-02-26 05:21:00Unknown Test Item Value Reference Range Comments Unknown (test code = 1759-0) 1.4 Unknown 1-3 F Ordering Physician UnknownLaboratory Lvktztj8316-41-76 05:21:00Identifier 32701- 6 Result Time 2019-02-26 05:21:00Unknown Test Item Value Reference Range Comments Unknown (test code = 29692-2) 3.6 g/dL Unknown 3.2-5.2 F Ordering Physician UnknownLaboratory Rlyvzwz4372-79-70 05:21:00Identifier 31879- 6 Result Time 2019-02-26 05:21:00Unknown Test Item Value Reference Range Comments Unknown (test code = 1742-6) 133 U/L Unknown 7-52 F Ordering Physician UnknownLaboratory Mewafga1845-98-62 05:21:00Identifier 85741- 6 Result Time 2019-02-26 05:21:00Unknown Test Item Value Reference Range Comments Unknown (test code = 75870-4) 0.1 Unknown Unknown F Ordering Physician UnknownLaboratory Ssqevpv7910-27-67 05:21:00Identifier 94690- 6 Result Time 2019-02-26 05:21:00Unknown Test Item Value Reference Range Comments Unknown (test code = 771-6) 0.0 10^3/ul Unknown Unknown F Ordering Physician UnknownLaboratory Ghaoxgk6338-32-44 05:21:00Identifier 74893- 6 Result Time 2019-02-26 05:21:00Unknown Test Item Value Reference Range Comments Unknown (test code = 770-8) 62.9 % Unknown Unknown F Ordering Physician UnknownLaboratory Awbmynz8542-66-70 05:21:00Identifier 64101- 6 Result Time 2019-02-26 05:21:00Unknown Test Item Value Reference Range Comments Unknown (test code = 5905-5) 16.4 % Unknown Unknown F Ordering Physician UnknownLaboratory Vwwmzlu5296-34-63 05:21:00Identifier 33203- 6 Result Time 2019-02-26 05:21:00Unknown Test Item Value Reference Range Comments Unknown (test code = 736-9) 16.5 % Unknown Unknown F Ordering Physician UnknownLaboratory Dvxgoey1941-85-49 05:21:00Identifier 53111- 6 Result Time 2019-02-26 05:21:00Unknown Test Item Value Reference Range Comments Unknown (test code = 713-8) 3.4 % Unknown Unknown F Ordering Physician UnknownLaboratory Shfedmz9391-55-89 05:21:00Identifier 82395- 6 Result Time 2019-02-26 05:21:00Unknown Test Item Value Reference Range Comments Unknown (test code = 706-2) 0.8 % Unknown Unknown F Ordering Physician UnknownLaboratory Pbeweia1585-09-14 05:21:00Identifier 79434- 6 Result Time 2019-02-26 05:21:00Unknown Test Item Value Reference Range Comments Unknown (test code = JRK9414) 2.6 10^3/ul Unknown 1.5-7.7 F Ordering Physician UnknownLaboratory Ioklgll9953-95-62 05:21:00Identifier 15336- 6 Result Time 2019-02-26 05:21:00Unknown Test Item Value Reference Range Comments Unknown (test code = 742-7) 0.7 10^3/ul Unknown 0-0.8 F Ordering Physician UnknownLaboratory Qbmacuk6988-36-81 05:21:00Identifier 04448- 6 Result Time 2019-02-26 05:21:00Unknown Test Item Value Reference Range Comments Unknown (test code = 731-0) 0.7 10^3/ul Unknown 1.0-4.8 F Ordering Physician UnknownLaboratory Jcyjnga7017-20-40 05:21:00Identifier 81131- 6 Result Time 2019-02-26 05:21:00Unknown Test Item Value Reference Range Comments Unknown (test code = 711-2) 0.1 10^3/ul Unknown 0-0.6 F Ordering Physician UnknownLaboratory Xfjbilw5919-74-80 05:21:00Identifier 21761- 6 Result Time 2019-02-26 05:21:00Unknown Test Item Value Reference Range Comments Unknown (test code = 704-7) 0.0 10^3/ul Unknown 0-0.2 F Ordering Physician UnknownLaboratory Pjnhzml0563-23-25 18:33:00Identifier 66088- 6 Result Time 2019-02-23 18:33:00Unknown Test Item Value Reference Range Comments Unknown (test code = 5643-2) 236 mg/dL Unknown 0-10 F Ordering Physician UnknownLaboratory Qlewvkr3468-23-99 18:33:00Identifier 00768- 6 Result Time 2019-02-23 18:33:00Unknown Test Item Value Reference Range Comments Unknown (test code = 01830-9) 0.89 Unknown 0.82-1.09 F Ordering Physician UnknownLaboratory Rotoyuv5681-76-81 18:33:00Identifier 26416- 6 Result Time 2019-02-23 18:33:00Unknown Test Item Value Reference Range Comments Unknown (test code = 51515-5) 31.2 seconds Unknown 26.0-38.0 F Ordering Physician UnknownLaboratory Cquooyu9490-63-35 18:33:00Identifier 65713- 6 Result Time 2019-02-23 18:33:00Unknown Test Item Value Reference Range Comments Unknown (test code = 2524-7) 1.6 mmol/L Unknown 0.5-2.0 F Ordering Physician UnknownLaboratory Hfwimyx3964-63-93 18:32:00Identifier 80671- 6 Result Time 2019-02-23 18:32:00Unknown Test Item Value Reference Range Comments Unknown (test code = 37292-5) 0.01 s/c Unknown Unknown F Ordering Physician Unknown
--- OUTSIDE RECORDS SUMMARY | 2019-10-05 20:53 | XMS REPORT ---
:1960 Author Organization [facility] Care Team Providers Name Role Phone Unavailable [...] Result Comments Laboratory Studies 2019-03-01 05:54:00 Identifier [id number] Result Time Unknown 2019-03-01 05:54:00 Test Item Value Reference Range Comments Unknown (test code = 2951-2) 136 mmol/L Unknown 135-145 F Ordering Physician UnknownLaboratory Siderff0939-98-69 05:54:00Identifier 12115- 6 Result Time 2019-03-01 05:54:00Unknown Test Item Value Reference Range Comments Unknown (test code = 2823-3) 4.4 mmol/L Unknown 3.5-5.0 F Ordering Physician UnknownLaboratory Npixzdz3845-17-05 05:54:00Identifier 68565- 6 Result Time 2019-03-01 05:54:00Unknown Test Item Value Reference Range Comments Unknown (test code = 21749-7) 2.5 mg/dL Unknown 1.9-2.7 F Ordering Physician UnknownLaboratory Fglembc1142-66-64 05:54:00Identifier 03292- 6 Result Time 2019-03-01 05:54:00Unknown Test Item Value Reference Range Comments Unknown (test code = 2345-7) 95 mg/dL Unknown 70-100 F Ordering Physician UnknownLaboratory Fviuyyp6367-09-52 05:54:00Identifier 49565- 6 Result Time 2019-03-01 05:54:00Unknown Test Item Value Reference Range Comments Unknown (test code = 61693-2) 128.5 Unknown Unknown F Ordering Physician UnknownLaboratory Xjnzqno5562-64-42 05:54:00Identifier 56207- 6 Result Time 2019-03-01 05:54:00Unknown Test Item Value Reference Range Comments Unknown (test code = NullTestCode) 155.4 Unknown Unknown F Ordering Physician UnknownLaboratory Xtzetwd7610-11-07 05:54:00Identifier 90740- 6 Result Time 2019-03-01 05:54:00Unknown Test Item Value Reference Range Comments Unknown (test code = 2160-0) 0.64 mg/dL Unknown 0.67-1.17 F Ordering Physician UnknownLaboratory Juyibbt3141-88-54 05:54:00Identifier 33381- 6 Result Time 2019-03-01 05:54:00Unknown Test Item Value Reference Range Comments Unknown (test code = 2075-0) 102 mmol/L Unknown 101-111 F Ordering Physician UnknownLaboratory Wqawmwf4824-72-00 05:54:00Identifier 18434- 6 Result Time 2019-03-01 05:54:00Unknown Test Item Value Reference Range Comments Unknown (test code = 2028-9) 29 mmol/L Unknown 22-32 F Ordering Physician UnknownLaboratory Iwftdbz3113-28-54 05:54:00Identifier 89450- 6 Result Time 2019-03-01 05:54:00Unknown Test Item Value Reference Range Comments Unknown (test code = 32194-5) 8.7 mg/dL Unknown 8.6-10.3 F Ordering Physician UnknownLaboratory Hxgxzyn1236-87-93 05:54:00Identifier 52740- 6 Result Time 2019-03-01 05:54:00Unknown Test Item Value Reference Range Comments Unknown (test code = 3094-0) 18 mg/dL Unknown 6-24 F Ordering Physician UnknownLaboratory Zemstbm2279-61-93 05:54:00Identifier 95299- 6 Result Time 2019-03-01 05:54:00Unknown Test Item Value Reference Range Comments Unknown (test code = 3097-3) 28.1 Unknown 8-20 F Ordering Physician UnknownLaboratory Xvylffo2620-08-38 05:54:00Identifier 79555- 6 Result Time 2019-03-01 05:54:00Unknown Test Item Value Reference Range Comments Unknown (test code = 22432-7) 5 mmol/L Unknown 2-11 F Ordering Physician UnknownLaboratory Xlaypzo9719-34-03 08:50:00Identifier 31919- 6 Result Time 2019-02-27 08:50:00Unknown Test Item Value Reference Range Comments Unknown (test code = 17683-3) 5.2 10^3/uL Unknown 3.5-10.8 F Ordering Physician UnknownLaboratory Ixcpeok5861-71-07 08:50:00Identifier 28762- 6 Result Time 2019-02-27 08:50:00Unknown Test Item Value Reference Range Comments Unknown (test code = 788-0) 15 % Unknown 10-15 F Ordering Physician UnknownLaboratory Jzfepfk1976-93-59 08:50:00Identifier 86008- 6 Result Time 2019-02-27 08:50:00Unknown Test Item Value Reference Range Comments Unknown (test code = 789-8) 3.43 10^6 /uL Unknown 4.18-5.48 F Ordering Physician UnknownLaboratory Opcmvjc9171-13-16 08:50:00Identifier 38460- 6 Result Time 2019-02-27 08:50:00Unknown Test Item Value Reference Range Comments Unknown (test code = 777-3) 144 10^3/uL Unknown 150-450 F Ordering Physician UnknownLaboratory Abubezf6775-89-01 08:50:00Identifier 97263- 6 Result Time 2019-02-27 08:50:00Unknown Test Item Value Reference Range Comments Unknown (test code = 11069-2) 7.9 fL Unknown 7.4-10.4 F Ordering Physician UnknownLaboratory Xhgspsy5536-00-15 08:50:00Identifier 36033- 6 Result Time 2019-02-27 08:50:00Unknown Test Item Value Reference Range Comments Unknown (test code = 787-2) 97 fL Unknown 80-94 F Ordering Physician UnknownLaboratory Jvqgkmj3745-13-51 08:50:00Identifier 84694- 6 Result Time 2019-02-27 08:50:00Unknown Test Item Value Reference Range Comments Unknown (test code = 786-4) 34 g/dL Unknown 31-36 F Ordering Physician UnknownLaboratory Vsjyaxq3263-40-01 08:50:00Identifier 92110- 6 Result Time 2019-02-27 08:50:00Unknown Test Item Value Reference Range Comments Unknown (test code = 785-6) 33 pg Unknown 27-31 F Ordering Physician UnknownLaboratory Igwlzxz7356-61-66 08:50:00Identifier 17924- 6 Result Time 2019-02-27 08:50:00Unknown Test Item Value Reference Range Comments Unknown (test code = 718-7) 11.4 g/dL Unknown 14.0-18.0 F Ordering Physician UnknownLaboratory Rpfiuff4825-15-39 08:50:00Identifier 68774- 6 Result Time 2019-02-27 08:50:00Unknown Test Item Value Reference Range Comments Unknown (test code = 4544-3) 33 % Unknown 42-52 F Ordering Physician UnknownLaboratory Gylpram7523-16-09 05:21:00Identifier 04900- 6 Result Time 2019-02-26 05:21:00Unknown Test Item Value Reference Range Comments Unknown (test code = 2885-2) 6.1 g/dL Unknown 6.4-8.9 F Ordering Physician UnknownLaboratory Mpmffqo9992-19-32 05:21:00Identifier 26548- 6 Result Time 2019-02-26 05:21:00Unknown Test Item Value Reference Range Comments Unknown (test code = 1975-2) 0.90 mg/dL Unknown 0.2-1.0 F Ordering Physician UnknownLaboratory Zoiotjp4680-60-33 05:21:00Identifier 02747- 6 Result Time 2019-02-26 05:21:00Unknown Test Item Value Reference Range Comments Unknown (test code = 2777-1) 3.7 mg/dL Unknown 2.5-5.0 F Ordering Physician UnknownLaboratory Mjafwzn1540-96-53 05:21:00Identifier 55844- 6 Result Time 2019-02-26 05:21:00Unknown Test Item Value Reference Range Comments Unknown (test code = 1971-1) 0.6 mg/dL Unknown 0.3-1.0 F Ordering Physician UnknownLaboratory Dxrngtd1232-10-84 05:21:00Identifier 73635- 6 Result Time 2019-02-26 05:21:00Unknown Test Item Value Reference Range Comments Unknown (test code = NullTestCode) 2.5 g/dL Unknown 2-4 F Ordering Physician UnknownLaboratory Gietjst4642-46-62 05:21:00Identifier 70197- 6 Result Time 2019-02-26 05:21:00Unknown Test Item Value Reference Range Comments Unknown (test code = 1968-7) 0.30 mg/dL Unknown 0.03-0.18 F Ordering Physician UnknownLaboratory Osrhjan9408-85-42 05:21:00Identifier 23417- 6 Result Time 2019-02-26 05:21:00Unknown Test Item Value Reference Range Comments Unknown (test code = 1920-8) 112 U/L Unknown 13-39 F Ordering Physician UnknownLaboratory Wpexxrc7455-66-24 05:21:00Identifier 21711- 6 Result Time 2019-02-26 05:21:00Unknown Test Item Value Reference Range Comments Unknown (test code = 6768-6) 342 U/L Unknown 34-104 F Ordering Physician UnknownLaboratory Jsurhmn4562-88-93 05:21:00Identifier 12569- 6 Result Time 2019-02-26 05:21:00Unknown Test Item Value Reference Range Comments Unknown (test code = 1759-0) 1.4 Unknown 1-3 F Ordering Physician UnknownLaboratory Nkbvcuk5083-93-35 05:21:00Identifier 68864- 6 Result Time 2019-02-26 05:21:00Unknown Test Item Value Reference Range Comments Unknown (test code = 19543-6) 3.6 g/dL Unknown 3.2-5.2 F Ordering Physician UnknownLaboratory Dfsjbik2299-49-73 05:21:00Identifier 25680- 6 Result Time 2019-02-26 05:21:00Unknown Test Item Value Reference Range Comments Unknown (test code = 1742-6) 133 U/L Unknown 7-52 F Ordering Physician UnknownLaboratory Nfbcvjv9704-77-16 05:21:00Identifier 10490- 6 Result Time 2019-02-26 05:21:00Unknown Test Item Value Reference Range Comments Unknown (test code = 43747-0) 0.1 Unknown Unknown F Ordering Physician UnknownLaboratory Egzwmwr2048-58-38 05:21:00Identifier 28057- 6 Result Time 2019-02-26 05:21:00Unknown Test Item Value Reference Range Comments Unknown (test code = 771-6) 0.0 10^3/ul Unknown Unknown F Ordering Physician UnknownLaboratory Fwpsxjp8157-29-44 05:21:00Identifier 56182- 6 Result Time 2019-02-26 05:21:00Unknown Test Item Value Reference Range Comments Unknown (test code = 770-8) 62.9 % Unknown Unknown F Ordering Physician UnknownLaboratory Nacyfzh9173-34-67 05:21:00Identifier 85115- 6 Result Time 2019-02-26 05:21:00Unknown Test Item Value Reference Range Comments Unknown (test code = 5905-5) 16.4 % Unknown Unknown F Ordering Physician UnknownLaboratory Bpyhvek0966-55-83 05:21:00Identifier 96295- 6 Result Time 2019-02-26 05:21:00Unknown Test Item Value Reference Range Comments Unknown (test code = 736-9) 16.5 % Unknown Unknown F Ordering Physician UnknownLaboratory Qmsgvvo8304-62-00 05:21:00Identifier 61990- 6 Result Time 2019-02-26 05:21:00Unknown Test Item Value Reference Range Comments Unknown (test code = 713-8) 3.4 % Unknown Unknown F Ordering Physician UnknownLaboratory Dvtknqs8738-01-81 05:21:00Identifier 80677- 6 Result Time 2019-02-26 05:21:00Unknown Test Item Value Reference Range Comments Unknown (test code = 706-2) 0.8 % Unknown Unknown F Ordering Physician UnknownLaboratory Gfhliof9391-18-01 05:21:00Identifier 08375- 6 Result Time 2019-02-26 05:21:00Unknown Test Item Value Reference Range Comments Unknown (test code = GPT5203) 2.6 10^3/ul Unknown 1.5-7.7 F Ordering Physician UnknownLaboratory Yjgobsi5780-33-32 05:21:00Identifier 39404- 6 Result Time 2019-02-26 05:21:00Unknown Test Item Value Reference Range Comments Unknown (test code = 742-7) 0.7 10^3/ul Unknown 0-0.8 F Ordering Physician UnknownLaboratory Rzbegki5165-94-25 05:21:00Identifier 01577- 6 Result Time 2019-02-26 05:21:00Unknown Test Item Value Reference Range Comments Unknown (test code = 731-0) 0.7 10^3/ul Unknown 1.0-4.8 F Ordering Physician UnknownLaboratory Eisnier1136-65-11 05:21:00Identifier 97939- 6 Result Time 2019-02-26 05:21:00Unknown Test Item Value Reference Range Comments Unknown (test code = 711-2) 0.1 10^3/ul Unknown 0-0.6 F Ordering Physician UnknownLaboratory Ehabmav3626-65-19 05:21:00Identifier 94312- 6 Result Time 2019-02-26 05:21:00Unknown Test Item Value Reference Range Comments Unknown (test code = 704-7) 0.0 10^3/ul Unknown 0-0.2 F Ordering Physician UnknownLaboratory Ryuydxk0368-16-60 18:33:00Identifier 63454- 6 Result Time 2019-02-23 18:33:00Unknown Test Item Value Reference Range Comments Unknown (test code = 5643-2) 236 mg/dL Unknown 0-10 F Ordering Physician UnknownLaboratory Lytqfkr9205-58-46 18:33:00Identifier 35307- 6 Result Time 2019-02-23 18:33:00Unknown Test Item Value Reference Range Comments Unknown (test code = 02955-0) 0.89 Unknown 0.82-1.09 F Ordering Physician UnknownLaboratory Undqmxp5835-99-14 18:33:00Identifier 99511- 6 Result Time 2019-02-23 18:33:00Unknown Test Item Value Reference Range Comments Unknown (test code = 70220-3) 31.2 seconds Unknown 26.0-38.0 F Ordering Physician UnknownLaboratory Gufjexm8947-15-90 18:33:00Identifier 89238- 6 Result Time 2019-02-23 18:33:00Unknown Test Item Value Reference Range Comments Unknown (test code = 2524-7) 1.6 mmol/L Unknown 0.5-2.0 F Ordering Physician UnknownLaboratory Rrfpgkp8934-74-71 18:32:00Identifier 67508- 6 Result Time 2019-02-23 18:32:00Unknown Test Item Value Reference Range Comments Unknown (test code = 42441-4) 0.01 s/c Unknown Unknown F Ordering Physician Unknown
--- OUTSIDE RECORDS SUMMARY | 2019-10-05 20:53 | XMS REPORT ---
:1960 Author Organization [facility] Care Team Providers Name Role Phone Unavailable [...] Result Comments Laboratory Studies 2019-03-01 05:54:00 Identifier [id number] Result Time Unknown 2019-03-01 05:54:00 Test Item Value Reference Range Comments Unknown (test code = 2951-2) 136 mmol/L Unknown 135-145 F Ordering Physician UnknownLaboratory Hiqrwaq3679-21-24 05:54:00Identifier 53401- 6 Result Time 2019-03-01 05:54:00Unknown Test Item Value Reference Range Comments Unknown (test code = 2823-3) 4.4 mmol/L Unknown 3.5-5.0 F Ordering Physician UnknownLaboratory Dowpqdn3351-91-43 05:54:00Identifier 59334- 6 Result Time 2019-03-01 05:54:00Unknown Test Item Value Reference Range Comments Unknown (test code = 27413-9) 2.5 mg/dL Unknown 1.9-2.7 F Ordering Physician UnknownLaboratory Zorcwzh6718-21-06 05:54:00Identifier 39395- 6 Result Time 2019-03-01 05:54:00Unknown Test Item Value Reference Range Comments Unknown (test code = 2345-7) 95 mg/dL Unknown 70-100 F Ordering Physician UnknownLaboratory Cjppsck5633-26-64 05:54:00Identifier 47398- 6 Result Time 2019-03-01 05:54:00Unknown Test Item Value Reference Range Comments Unknown (test code = 04893-9) 128.5 Unknown Unknown F Ordering Physician UnknownLaboratory Ifhxkij8772-39-37 05:54:00Identifier 71389- 6 Result Time 2019-03-01 05:54:00Unknown Test Item Value Reference Range Comments Unknown (test code = NullTestCode) 155.4 Unknown Unknown F Ordering Physician UnknownLaboratory Fmssefe3957-92-02 05:54:00Identifier 03197- 6 Result Time 2019-03-01 05:54:00Unknown Test Item Value Reference Range Comments Unknown (test code = 2160-0) 0.64 mg/dL Unknown 0.67-1.17 F Ordering Physician UnknownLaboratory Iqfbbxa4216-47-65 05:54:00Identifier 22176- 6 Result Time 2019-03-01 05:54:00Unknown Test Item Value Reference Range Comments Unknown (test code = 2075-0) 102 mmol/L Unknown 101-111 F Ordering Physician UnknownLaboratory Zaafwza7959-59-49 05:54:00Identifier 04867- 6 Result Time 2019-03-01 05:54:00Unknown Test Item Value Reference Range Comments Unknown (test code = 2028-9) 29 mmol/L Unknown 22-32 F Ordering Physician UnknownLaboratory Vneztdy3199-26-42 05:54:00Identifier 22400- 6 Result Time 2019-03-01 05:54:00Unknown Test Item Value Reference Range Comments Unknown (test code = 31299-4) 8.7 mg/dL Unknown 8.6-10.3 F Ordering Physician UnknownLaboratory Bpjxlph9542-27-52 05:54:00Identifier 30631- 6 Result Time 2019-03-01 05:54:00Unknown Test Item Value Reference Range Comments Unknown (test code = 3094-0) 18 mg/dL Unknown 6-24 F Ordering Physician UnknownLaboratory Unmlfzr7812-80-56 05:54:00Identifier 26618- 6 Result Time 2019-03-01 05:54:00Unknown Test Item Value Reference Range Comments Unknown (test code = 3097-3) 28.1 Unknown 8-20 F Ordering Physician UnknownLaboratory Vktcamy4326-45-42 05:54:00Identifier 79403- 6 Result Time 2019-03-01 05:54:00Unknown Test Item Value Reference Range Comments Unknown (test code = 31986-5) 5 mmol/L Unknown 2-11 F Ordering Physician UnknownLaboratory Oabjpfu9573-53-27 08:50:00Identifier 68597- 6 Result Time 2019-02-27 08:50:00Unknown Test Item Value Reference Range Comments Unknown (test code = 89267-0) 5.2 10^3/uL Unknown 3.5-10.8 F Ordering Physician UnknownLaboratory Hjgmzhs4989-23-39 08:50:00Identifier 00648- 6 Result Time 2019-02-27 08:50:00Unknown Test Item Value Reference Range Comments Unknown (test code = 788-0) 15 % Unknown 10-15 F Ordering Physician UnknownLaboratory Uhztqqr1274-81-23 08:50:00Identifier 95225- 6 Result Time 2019-02-27 08:50:00Unknown Test Item Value Reference Range Comments Unknown (test code = 789-8) 3.43 10^6 /uL Unknown 4.18-5.48 F Ordering Physician UnknownLaboratory Jturnvk6947-30-05 08:50:00Identifier 13834- 6 Result Time 2019-02-27 08:50:00Unknown Test Item Value Reference Range Comments Unknown (test code = 777-3) 144 10^3/uL Unknown 150-450 F Ordering Physician UnknownLaboratory Qcpjztq2747-26-07 08:50:00Identifier 50533- 6 Result Time 2019-02-27 08:50:00Unknown Test Item Value Reference Range Comments Unknown (test code = 26112-8) 7.9 fL Unknown 7.4-10.4 F Ordering Physician UnknownLaboratory Fylwqyb5865-74-13 08:50:00Identifier 60180- 6 Result Time 2019-02-27 08:50:00Unknown Test Item Value Reference Range Comments Unknown (test code = 787-2) 97 fL Unknown 80-94 F Ordering Physician UnknownLaboratory Hcdwqxk8161-31-29 08:50:00Identifier 70439- 6 Result Time 2019-02-27 08:50:00Unknown Test Item Value Reference Range Comments Unknown (test code = 786-4) 34 g/dL Unknown 31-36 F Ordering Physician UnknownLaboratory Egaowqr1748-78-08 08:50:00Identifier 55261- 6 Result Time 2019-02-27 08:50:00Unknown Test Item Value Reference Range Comments Unknown (test code = 785-6) 33 pg Unknown 27-31 F Ordering Physician UnknownLaboratory Ppasixb6409-91-79 08:50:00Identifier 84988- 6 Result Time 2019-02-27 08:50:00Unknown Test Item Value Reference Range Comments Unknown (test code = 718-7) 11.4 g/dL Unknown 14.0-18.0 F Ordering Physician UnknownLaboratory Jkoupaz9463-75-25 08:50:00Identifier 99728- 6 Result Time 2019-02-27 08:50:00Unknown Test Item Value Reference Range Comments Unknown (test code = 4544-3) 33 % Unknown 42-52 F Ordering Physician UnknownLaboratory Lptuewj1153-76-97 05:21:00Identifier 21290- 6 Result Time 2019-02-26 05:21:00Unknown Test Item Value Reference Range Comments Unknown (test code = 2885-2) 6.1 g/dL Unknown 6.4-8.9 F Ordering Physician UnknownLaboratory Jbfuwnc5769-24-25 05:21:00Identifier 08515- 6 Result Time 2019-02-26 05:21:00Unknown Test Item Value Reference Range Comments Unknown (test code = 1975-2) 0.90 mg/dL Unknown 0.2-1.0 F Ordering Physician UnknownLaboratory Gztnpzj2821-50-64 05:21:00Identifier 20608- 6 Result Time 2019-02-26 05:21:00Unknown Test Item Value Reference Range Comments Unknown (test code = 2777-1) 3.7 mg/dL Unknown 2.5-5.0 F Ordering Physician UnknownLaboratory Jyfkwew7889-03-21 05:21:00Identifier 22188- 6 Result Time 2019-02-26 05:21:00Unknown Test Item Value Reference Range Comments Unknown (test code = 1971-1) 0.6 mg/dL Unknown 0.3-1.0 F Ordering Physician UnknownLaboratory Tbsrkrw1214-05-52 05:21:00Identifier 42540- 6 Result Time 2019-02-26 05:21:00Unknown Test Item Value Reference Range Comments Unknown (test code = NullTestCode) 2.5 g/dL Unknown 2-4 F Ordering Physician UnknownLaboratory Dkqdmbi2750-80-87 05:21:00Identifier 50578- 6 Result Time 2019-02-26 05:21:00Unknown Test Item Value Reference Range Comments Unknown (test code = 1968-7) 0.30 mg/dL Unknown 0.03-0.18 F Ordering Physician UnknownLaboratory Zohcvpo6604-12-39 05:21:00Identifier 93345- 6 Result Time 2019-02-26 05:21:00Unknown Test Item Value Reference Range Comments Unknown (test code = 1920-8) 112 U/L Unknown 13-39 F Ordering Physician UnknownLaboratory Qsiunnh5897-71-63 05:21:00Identifier 65405- 6 Result Time 2019-02-26 05:21:00Unknown Test Item Value Reference Range Comments Unknown (test code = 6768-6) 342 U/L Unknown 34-104 F Ordering Physician UnknownLaboratory Mmlflma5614-54-79 05:21:00Identifier 17163- 6 Result Time 2019-02-26 05:21:00Unknown Test Item Value Reference Range Comments Unknown (test code = 1759-0) 1.4 Unknown 1-3 F Ordering Physician UnknownLaboratory Xcfmyrb5682-49-73 05:21:00Identifier 13254- 6 Result Time 2019-02-26 05:21:00Unknown Test Item Value Reference Range Comments Unknown (test code = 83288-9) 3.6 g/dL Unknown 3.2-5.2 F Ordering Physician UnknownLaboratory Yzikvyn2782-49-04 05:21:00Identifier 59886- 6 Result Time 2019-02-26 05:21:00Unknown Test Item Value Reference Range Comments Unknown (test code = 1742-6) 133 U/L Unknown 7-52 F Ordering Physician UnknownLaboratory Khqqggu0527-62-56 05:21:00Identifier 34294- 6 Result Time 2019-02-26 05:21:00Unknown Test Item Value Reference Range Comments Unknown (test code = 35138-2) 0.1 Unknown Unknown F Ordering Physician UnknownLaboratory Fhkoida3162-27-81 05:21:00Identifier 01747- 6 Result Time 2019-02-26 05:21:00Unknown Test Item Value Reference Range Comments Unknown (test code = 771-6) 0.0 10^3/ul Unknown Unknown F Ordering Physician UnknownLaboratory Wmykxto5845-60-09 05:21:00Identifier 52156- 6 Result Time 2019-02-26 05:21:00Unknown Test Item Value Reference Range Comments Unknown (test code = 770-8) 62.9 % Unknown Unknown F Ordering Physician UnknownLaboratory Njsfmzr1475-38-45 05:21:00Identifier 58064- 6 Result Time 2019-02-26 05:21:00Unknown Test Item Value Reference Range Comments Unknown (test code = 5905-5) 16.4 % Unknown Unknown F Ordering Physician UnknownLaboratory Iwnuzfk8222-04-46 05:21:00Identifier 38765- 6 Result Time 2019-02-26 05:21:00Unknown Test Item Value Reference Range Comments Unknown (test code = 736-9) 16.5 % Unknown Unknown F Ordering Physician UnknownLaboratory Sdktgjq5432-55-50 05:21:00Identifier 52892- 6 Result Time 2019-02-26 05:21:00Unknown Test Item Value Reference Range Comments Unknown (test code = 713-8) 3.4 % Unknown Unknown F Ordering Physician UnknownLaboratory Eypvsaf9653-02-44 05:21:00Identifier 02539- 6 Result Time 2019-02-26 05:21:00Unknown Test Item Value Reference Range Comments Unknown (test code = 706-2) 0.8 % Unknown Unknown F Ordering Physician UnknownLaboratory Acoiaov4593-15-54 05:21:00Identifier 72828- 6 Result Time 2019-02-26 05:21:00Unknown Test Item Value Reference Range Comments Unknown (test code = GFP3565) 2.6 10^3/ul Unknown 1.5-7.7 F Ordering Physician UnknownLaboratory Wbvtxhp8341-20-03 05:21:00Identifier 84461- 6 Result Time 2019-02-26 05:21:00Unknown Test Item Value Reference Range Comments Unknown (test code = 742-7) 0.7 10^3/ul Unknown 0-0.8 F Ordering Physician UnknownLaboratory Neliekh8478-11-34 05:21:00Identifier 45763- 6 Result Time 2019-02-26 05:21:00Unknown Test Item Value Reference Range Comments Unknown (test code = 731-0) 0.7 10^3/ul Unknown 1.0-4.8 F Ordering Physician UnknownLaboratory Amtbhqm1357-08-05 05:21:00Identifier 51144- 6 Result Time 2019-02-26 05:21:00Unknown Test Item Value Reference Range Comments Unknown (test code = 711-2) 0.1 10^3/ul Unknown 0-0.6 F Ordering Physician UnknownLaboratory Phaibcj6979-82-33 05:21:00Identifier 22931- 6 Result Time 2019-02-26 05:21:00Unknown Test Item Value Reference Range Comments Unknown (test code = 704-7) 0.0 10^3/ul Unknown 0-0.2 F Ordering Physician UnknownLaboratory Mfipngj1776-04-05 18:33:00Identifier 29124- 6 Result Time 2019-02-23 18:33:00Unknown Test Item Value Reference Range Comments Unknown (test code = 5643-2) 236 mg/dL Unknown 0-10 F Ordering Physician UnknownLaboratory Dogggbx3580-65-89 18:33:00Identifier 17462- 6 Result Time 2019-02-23 18:33:00Unknown Test Item Value Reference Range Comments Unknown (test code = 53479-8) 0.89 Unknown 0.82-1.09 F Ordering Physician UnknownLaboratory Hlkzqsi6832-89-77 18:33:00Identifier 32727- 6 Result Time 2019-02-23 18:33:00Unknown Test Item Value Reference Range Comments Unknown (test code = 29972-6) 31.2 seconds Unknown 26.0-38.0 F Ordering Physician UnknownLaboratory Tphzzjk1864-09-30 18:33:00Identifier 58470- 6 Result Time 2019-02-23 18:33:00Unknown Test Item Value Reference Range Comments Unknown (test code = 2524-7) 1.6 mmol/L Unknown 0.5-2.0 F Ordering Physician UnknownLaboratory Neltjaq0206-88-74 18:32:00Identifier 56956- 6 Result Time 2019-02-23 18:32:00Unknown Test Item Value Reference Range Comments Unknown (test code = 25822-4) 0.01 s/c Unknown Unknown F Ordering Physician Unknown
--- OUTSIDE RECORDS SUMMARY | 2019-10-05 20:53 | XMS REPORT ---
:1960 Author Organization [facility] Care Team Providers Name Role Phone Unavailable [...] Result Comments Laboratory Studies 2019-03-01 05:54:00 Identifier [id number] Result Time Unknown 2019-03-01 05:54:00 Test Item Value Reference Range Comments Unknown (test code = 2951-2) 136 mmol/L Unknown 135-145 F Ordering Physician UnknownLaboratory Glhozrd5666-42-74 05:54:00Identifier 39573- 6 Result Time 2019-03-01 05:54:00Unknown Test Item Value Reference Range Comments Unknown (test code = 2823-3) 4.4 mmol/L Unknown 3.5-5.0 F Ordering Physician UnknownLaboratory Kglhlnp2944-62-64 05:54:00Identifier 69169- 6 Result Time 2019-03-01 05:54:00Unknown Test Item Value Reference Range Comments Unknown (test code = 88873-6) 2.5 mg/dL Unknown 1.9-2.7 F Ordering Physician UnknownLaboratory Lpxibzl6937-39-78 05:54:00Identifier 16483- 6 Result Time 2019-03-01 05:54:00Unknown Test Item Value Reference Range Comments Unknown (test code = 2345-7) 95 mg/dL Unknown 70-100 F Ordering Physician UnknownLaboratory Uunwcqs7118-80-37 05:54:00Identifier 33907- 6 Result Time 2019-03-01 05:54:00Unknown Test Item Value Reference Range Comments Unknown (test code = 80229-2) 128.5 Unknown Unknown F Ordering Physician UnknownLaboratory Tljxyvu6520-63-50 05:54:00Identifier 07624- 6 Result Time 2019-03-01 05:54:00Unknown Test Item Value Reference Range Comments Unknown (test code = NullTestCode) 155.4 Unknown Unknown F Ordering Physician UnknownLaboratory Kpwbxeo5931-40-17 05:54:00Identifier 07757- 6 Result Time 2019-03-01 05:54:00Unknown Test Item Value Reference Range Comments Unknown (test code = 2160-0) 0.64 mg/dL Unknown 0.67-1.17 F Ordering Physician UnknownLaboratory Cwtjbpt0978-55-36 05:54:00Identifier 76968- 6 Result Time 2019-03-01 05:54:00Unknown Test Item Value Reference Range Comments Unknown (test code = 2075-0) 102 mmol/L Unknown 101-111 F Ordering Physician UnknownLaboratory Ocxkrqa7050-61-31 05:54:00Identifier 70271- 6 Result Time 2019-03-01 05:54:00Unknown Test Item Value Reference Range Comments Unknown (test code = 2028-9) 29 mmol/L Unknown 22-32 F Ordering Physician UnknownLaboratory Ysvlfun9929-27-80 05:54:00Identifier 37911- 6 Result Time 2019-03-01 05:54:00Unknown Test Item Value Reference Range Comments Unknown (test code = 61237-6) 8.7 mg/dL Unknown 8.6-10.3 F Ordering Physician UnknownLaboratory Rfzppkn5526-13-56 05:54:00Identifier 07841- 6 Result Time 2019-03-01 05:54:00Unknown Test Item Value Reference Range Comments Unknown (test code = 3094-0) 18 mg/dL Unknown 6-24 F Ordering Physician UnknownLaboratory Dmoygdm2918-26-44 05:54:00Identifier 65303- 6 Result Time 2019-03-01 05:54:00Unknown Test Item Value Reference Range Comments Unknown (test code = 3097-3) 28.1 Unknown 8-20 F Ordering Physician UnknownLaboratory Egcazgu4269-88-55 05:54:00Identifier 27100- 6 Result Time 2019-03-01 05:54:00Unknown Test Item Value Reference Range Comments Unknown (test code = 12322-9) 5 mmol/L Unknown 2-11 F Ordering Physician UnknownLaboratory Qseirlt8505-61-83 08:50:00Identifier 58278- 6 Result Time 2019-02-27 08:50:00Unknown Test Item Value Reference Range Comments Unknown (test code = 01247-5) 5.2 10^3/uL Unknown 3.5-10.8 F Ordering Physician UnknownLaboratory Ukslrvp9824-35-29 08:50:00Identifier 30384- 6 Result Time 2019-02-27 08:50:00Unknown Test Item Value Reference Range Comments Unknown (test code = 788-0) 15 % Unknown 10-15 F Ordering Physician UnknownLaboratory Fffpaxp7424-13-37 08:50:00Identifier 93470- 6 Result Time 2019-02-27 08:50:00Unknown Test Item Value Reference Range Comments Unknown (test code = 789-8) 3.43 10^6 /uL Unknown 4.18-5.48 F Ordering Physician UnknownLaboratory Tkokkly5900-10-95 08:50:00Identifier 87813- 6 Result Time 2019-02-27 08:50:00Unknown Test Item Value Reference Range Comments Unknown (test code = 777-3) 144 10^3/uL Unknown 150-450 F Ordering Physician UnknownLaboratory Npkejcp0379-95-62 08:50:00Identifier 97316- 6 Result Time 2019-02-27 08:50:00Unknown Test Item Value Reference Range Comments Unknown (test code = 92923-7) 7.9 fL Unknown 7.4-10.4 F Ordering Physician UnknownLaboratory Bucsoyp9668-28-21 08:50:00Identifier 72146- 6 Result Time 2019-02-27 08:50:00Unknown Test Item Value Reference Range Comments Unknown (test code = 787-2) 97 fL Unknown 80-94 F Ordering Physician UnknownLaboratory Eiynbbz9706-83-24 08:50:00Identifier 24185- 6 Result Time 2019-02-27 08:50:00Unknown Test Item Value Reference Range Comments Unknown (test code = 786-4) 34 g/dL Unknown 31-36 F Ordering Physician UnknownLaboratory Ihbnhct8495-75-50 08:50:00Identifier 78883- 6 Result Time 2019-02-27 08:50:00Unknown Test Item Value Reference Range Comments Unknown (test code = 785-6) 33 pg Unknown 27-31 F Ordering Physician UnknownLaboratory Uhrgcgc1739-55-89 08:50:00Identifier 20661- 6 Result Time 2019-02-27 08:50:00Unknown Test Item Value Reference Range Comments Unknown (test code = 718-7) 11.4 g/dL Unknown 14.0-18.0 F Ordering Physician UnknownLaboratory Ingbzri4644-91-69 08:50:00Identifier 52441- 6 Result Time 2019-02-27 08:50:00Unknown Test Item Value Reference Range Comments Unknown (test code = 4544-3) 33 % Unknown 42-52 F Ordering Physician UnknownLaboratory Cyygdeo1166-19-25 05:21:00Identifier 15905- 6 Result Time 2019-02-26 05:21:00Unknown Test Item Value Reference Range Comments Unknown (test code = 2885-2) 6.1 g/dL Unknown 6.4-8.9 F Ordering Physician UnknownLaboratory Zedfaik6406-61-88 05:21:00Identifier 12155- 6 Result Time 2019-02-26 05:21:00Unknown Test Item Value Reference Range Comments Unknown (test code = 1975-2) 0.90 mg/dL Unknown 0.2-1.0 F Ordering Physician UnknownLaboratory Pgcqigp9455-80-88 05:21:00Identifier 51000- 6 Result Time 2019-02-26 05:21:00Unknown Test Item Value Reference Range Comments Unknown (test code = 2777-1) 3.7 mg/dL Unknown 2.5-5.0 F Ordering Physician UnknownLaboratory Itugxiv1525-90-51 05:21:00Identifier 16902- 6 Result Time 2019-02-26 05:21:00Unknown Test Item Value Reference Range Comments Unknown (test code = 1971-1) 0.6 mg/dL Unknown 0.3-1.0 F Ordering Physician UnknownLaboratory Bwwsjwu2076-15-36 05:21:00Identifier 78452- 6 Result Time 2019-02-26 05:21:00Unknown Test Item Value Reference Range Comments Unknown (test code = NullTestCode) 2.5 g/dL Unknown 2-4 F Ordering Physician UnknownLaboratory Deddgjn9129-23-40 05:21:00Identifier 77368- 6 Result Time 2019-02-26 05:21:00Unknown Test Item Value Reference Range Comments Unknown (test code = 1968-7) 0.30 mg/dL Unknown 0.03-0.18 F Ordering Physician UnknownLaboratory Obqjysw0839-99-23 05:21:00Identifier 31854- 6 Result Time 2019-02-26 05:21:00Unknown Test Item Value Reference Range Comments Unknown (test code = 1920-8) 112 U/L Unknown 13-39 F Ordering Physician UnknownLaboratory Mujfyxw3387-22-68 05:21:00Identifier 23277- 6 Result Time 2019-02-26 05:21:00Unknown Test Item Value Reference Range Comments Unknown (test code = 6768-6) 342 U/L Unknown 34-104 F Ordering Physician UnknownLaboratory Qzuasjh2319-36-07 05:21:00Identifier 45010- 6 Result Time 2019-02-26 05:21:00Unknown Test Item Value Reference Range Comments Unknown (test code = 1759-0) 1.4 Unknown 1-3 F Ordering Physician UnknownLaboratory Thcwqbb4245-97-98 05:21:00Identifier 75988- 6 Result Time 2019-02-26 05:21:00Unknown Test Item Value Reference Range Comments Unknown (test code = 23099-3) 3.6 g/dL Unknown 3.2-5.2 F Ordering Physician UnknownLaboratory Dnghfjx2493-59-98 05:21:00Identifier 07073- 6 Result Time 2019-02-26 05:21:00Unknown Test Item Value Reference Range Comments Unknown (test code = 1742-6) 133 U/L Unknown 7-52 F Ordering Physician UnknownLaboratory Abgkvkw3980-00-02 05:21:00Identifier 69406- 6 Result Time 2019-02-26 05:21:00Unknown Test Item Value Reference Range Comments Unknown (test code = 53699-2) 0.1 Unknown Unknown F Ordering Physician UnknownLaboratory Rwfjjtk4501-17-71 05:21:00Identifier 96385- 6 Result Time 2019-02-26 05:21:00Unknown Test Item Value Reference Range Comments Unknown (test code = 771-6) 0.0 10^3/ul Unknown Unknown F Ordering Physician UnknownLaboratory Derqdwo9955-64-01 05:21:00Identifier 10220- 6 Result Time 2019-02-26 05:21:00Unknown Test Item Value Reference Range Comments Unknown (test code = 770-8) 62.9 % Unknown Unknown F Ordering Physician UnknownLaboratory Burnsxk7014-53-18 05:21:00Identifier 58394- 6 Result Time 2019-02-26 05:21:00Unknown Test Item Value Reference Range Comments Unknown (test code = 5905-5) 16.4 % Unknown Unknown F Ordering Physician UnknownLaboratory Jkaeywp5677-54-56 05:21:00Identifier 44911- 6 Result Time 2019-02-26 05:21:00Unknown Test Item Value Reference Range Comments Unknown (test code = 736-9) 16.5 % Unknown Unknown F Ordering Physician UnknownLaboratory Kkfcjum5911-06-02 05:21:00Identifier 30731- 6 Result Time 2019-02-26 05:21:00Unknown Test Item Value Reference Range Comments Unknown (test code = 713-8) 3.4 % Unknown Unknown F Ordering Physician UnknownLaboratory Zzetigb4174-29-12 05:21:00Identifier 39870- 6 Result Time 2019-02-26 05:21:00Unknown Test Item Value Reference Range Comments Unknown (test code = 706-2) 0.8 % Unknown Unknown F Ordering Physician UnknownLaboratory Hifktye0569-49-73 05:21:00Identifier 41129- 6 Result Time 2019-02-26 05:21:00Unknown Test Item Value Reference Range Comments Unknown (test code = KFT2865) 2.6 10^3/ul Unknown 1.5-7.7 F Ordering Physician UnknownLaboratory Dzxscak5779-63-74 05:21:00Identifier 26299- 6 Result Time 2019-02-26 05:21:00Unknown Test Item Value Reference Range Comments Unknown (test code = 742-7) 0.7 10^3/ul Unknown 0-0.8 F Ordering Physician UnknownLaboratory Gevdsuv1338-16-99 05:21:00Identifier 36083- 6 Result Time 2019-02-26 05:21:00Unknown Test Item Value Reference Range Comments Unknown (test code = 731-0) 0.7 10^3/ul Unknown 1.0-4.8 F Ordering Physician UnknownLaboratory Ektndkj5738-17-37 05:21:00Identifier 53488- 6 Result Time 2019-02-26 05:21:00Unknown Test Item Value Reference Range Comments Unknown (test code = 711-2) 0.1 10^3/ul Unknown 0-0.6 F Ordering Physician UnknownLaboratory Rpgysms1394-02-09 05:21:00Identifier 94635- 6 Result Time 2019-02-26 05:21:00Unknown Test Item Value Reference Range Comments Unknown (test code = 704-7) 0.0 10^3/ul Unknown 0-0.2 F Ordering Physician UnknownLaboratory Yupjesf6544-65-24 18:33:00Identifier 79716- 6 Result Time 2019-02-23 18:33:00Unknown Test Item Value Reference Range Comments Unknown (test code = 5643-2) 236 mg/dL Unknown 0-10 F Ordering Physician UnknownLaboratory Jqrvvrp9941-38-47 18:33:00Identifier 78172- 6 Result Time 2019-02-23 18:33:00Unknown Test Item Value Reference Range Comments Unknown (test code = 79282-6) 0.89 Unknown 0.82-1.09 F Ordering Physician UnknownLaboratory Zrgutib5983-27-54 18:33:00Identifier 96798- 6 Result Time 2019-02-23 18:33:00Unknown Test Item Value Reference Range Comments Unknown (test code = 28222-3) 31.2 seconds Unknown 26.0-38.0 F Ordering Physician UnknownLaboratory Hxweldc5940-11-82 18:33:00Identifier 07678- 6 Result Time 2019-02-23 18:33:00Unknown Test Item Value Reference Range Comments Unknown (test code = 2524-7) 1.6 mmol/L Unknown 0.5-2.0 F Ordering Physician UnknownLaboratory Vnfylwc2551-04-61 18:32:00Identifier 85627- 6 Result Time 2019-02-23 18:32:00Unknown Test Item Value Reference Range Comments Unknown (test code = 82379-6) 0.01 s/c Unknown Unknown F Ordering Physician Unknown
--- OUTSIDE RECORDS SUMMARY | 2019-10-05 20:53 | XMS REPORT ---
:1960 Author Organization [facility] Care Team Providers Name Role Phone Unavailable [...] Result Comments Laboratory Studies 2019-03-01 05:54:00 Identifier [id number] Result Time Unknown 2019-03-01 05:54:00 Test Item Value Reference Range Comments Unknown (test code = 2951-2) 136 mmol/L Unknown 135-145 F Ordering Physician UnknownLaboratory Inbrviv4710-16-28 05:54:00Identifier 47549- 6 Result Time 2019-03-01 05:54:00Unknown Test Item Value Reference Range Comments Unknown (test code = 2823-3) 4.4 mmol/L Unknown 3.5-5.0 F Ordering Physician UnknownLaboratory Stnclrx8929-78-99 05:54:00Identifier 25449- 6 Result Time 2019-03-01 05:54:00Unknown Test Item Value Reference Range Comments Unknown (test code = 30980-1) 2.5 mg/dL Unknown 1.9-2.7 F Ordering Physician UnknownLaboratory Hfkteyb1838-69-44 05:54:00Identifier 90723- 6 Result Time 2019-03-01 05:54:00Unknown Test Item Value Reference Range Comments Unknown (test code = 2345-7) 95 mg/dL Unknown 70-100 F Ordering Physician UnknownLaboratory Rybjtqd1590-61-33 05:54:00Identifier 69232- 6 Result Time 2019-03-01 05:54:00Unknown Test Item Value Reference Range Comments Unknown (test code = 29861-5) 128.5 Unknown Unknown F Ordering Physician UnknownLaboratory Xkjvckf7573-13-39 05:54:00Identifier 76136- 6 Result Time 2019-03-01 05:54:00Unknown Test Item Value Reference Range Comments Unknown (test code = NullTestCode) 155.4 Unknown Unknown F Ordering Physician UnknownLaboratory Svgzqsd5040-23-55 05:54:00Identifier 60526- 6 Result Time 2019-03-01 05:54:00Unknown Test Item Value Reference Range Comments Unknown (test code = 2160-0) 0.64 mg/dL Unknown 0.67-1.17 F Ordering Physician UnknownLaboratory Viuhmdr3780-23-65 05:54:00Identifier 39637- 6 Result Time 2019-03-01 05:54:00Unknown Test Item Value Reference Range Comments Unknown (test code = 2075-0) 102 mmol/L Unknown 101-111 F Ordering Physician UnknownLaboratory Kzlrjba4523-43-63 05:54:00Identifier 70474- 6 Result Time 2019-03-01 05:54:00Unknown Test Item Value Reference Range Comments Unknown (test code = 2028-9) 29 mmol/L Unknown 22-32 F Ordering Physician UnknownLaboratory Xsburtp2380-88-05 05:54:00Identifier 11124- 6 Result Time 2019-03-01 05:54:00Unknown Test Item Value Reference Range Comments Unknown (test code = 18227-7) 8.7 mg/dL Unknown 8.6-10.3 F Ordering Physician UnknownLaboratory Fljlnrn1921-15-20 05:54:00Identifier 69338- 6 Result Time 2019-03-01 05:54:00Unknown Test Item Value Reference Range Comments Unknown (test code = 3094-0) 18 mg/dL Unknown 6-24 F Ordering Physician UnknownLaboratory Brmsvvm5923-56-86 05:54:00Identifier 76302- 6 Result Time 2019-03-01 05:54:00Unknown Test Item Value Reference Range Comments Unknown (test code = 3097-3) 28.1 Unknown 8-20 F Ordering Physician UnknownLaboratory Tplpbsv2312-85-54 05:54:00Identifier 39181- 6 Result Time 2019-03-01 05:54:00Unknown Test Item Value Reference Range Comments Unknown (test code = 58630-2) 5 mmol/L Unknown 2-11 F Ordering Physician UnknownLaboratory Lrrvvcw9604-22-80 08:50:00Identifier 13404- 6 Result Time 2019-02-27 08:50:00Unknown Test Item Value Reference Range Comments Unknown (test code = 99138-2) 5.2 10^3/uL Unknown 3.5-10.8 F Ordering Physician UnknownLaboratory Wlcsyqc7225-99-41 08:50:00Identifier 65160- 6 Result Time 2019-02-27 08:50:00Unknown Test Item Value Reference Range Comments Unknown (test code = 788-0) 15 % Unknown 10-15 F Ordering Physician UnknownLaboratory Hvvsifz7686-60-71 08:50:00Identifier 41880- 6 Result Time 2019-02-27 08:50:00Unknown Test Item Value Reference Range Comments Unknown (test code = 789-8) 3.43 10^6 /uL Unknown 4.18-5.48 F Ordering Physician UnknownLaboratory Rzllwdj3082-50-77 08:50:00Identifier 75141- 6 Result Time 2019-02-27 08:50:00Unknown Test Item Value Reference Range Comments Unknown (test code = 777-3) 144 10^3/uL Unknown 150-450 F Ordering Physician UnknownLaboratory Tmmklew1138-85-37 08:50:00Identifier 44485- 6 Result Time 2019-02-27 08:50:00Unknown Test Item Value Reference Range Comments Unknown (test code = 09102-5) 7.9 fL Unknown 7.4-10.4 F Ordering Physician UnknownLaboratory Phquvwp0166-98-66 08:50:00Identifier 46608- 6 Result Time 2019-02-27 08:50:00Unknown Test Item Value Reference Range Comments Unknown (test code = 787-2) 97 fL Unknown 80-94 F Ordering Physician UnknownLaboratory Ohiftsi4202-09-13 08:50:00Identifier 48145- 6 Result Time 2019-02-27 08:50:00Unknown Test Item Value Reference Range Comments Unknown (test code = 786-4) 34 g/dL Unknown 31-36 F Ordering Physician UnknownLaboratory Tcbqqnr5080-34-54 08:50:00Identifier 11832- 6 Result Time 2019-02-27 08:50:00Unknown Test Item Value Reference Range Comments Unknown (test code = 785-6) 33 pg Unknown 27-31 F Ordering Physician UnknownLaboratory Uoznvek8288-02-62 08:50:00Identifier 32358- 6 Result Time 2019-02-27 08:50:00Unknown Test Item Value Reference Range Comments Unknown (test code = 718-7) 11.4 g/dL Unknown 14.0-18.0 F Ordering Physician UnknownLaboratory Dctqgjz0678-59-58 08:50:00Identifier 49264- 6 Result Time 2019-02-27 08:50:00Unknown Test Item Value Reference Range Comments Unknown (test code = 4544-3) 33 % Unknown 42-52 F Ordering Physician UnknownLaboratory Depqlfe0937-57-79 05:21:00Identifier 77877- 6 Result Time 2019-02-26 05:21:00Unknown Test Item Value Reference Range Comments Unknown (test code = 2885-2) 6.1 g/dL Unknown 6.4-8.9 F Ordering Physician UnknownLaboratory Ilypwgq1360-90-01 05:21:00Identifier 93065- 6 Result Time 2019-02-26 05:21:00Unknown Test Item Value Reference Range Comments Unknown (test code = 1975-2) 0.90 mg/dL Unknown 0.2-1.0 F Ordering Physician UnknownLaboratory Yxuvvkq1543-80-68 05:21:00Identifier 61310- 6 Result Time 2019-02-26 05:21:00Unknown Test Item Value Reference Range Comments Unknown (test code = 2777-1) 3.7 mg/dL Unknown 2.5-5.0 F Ordering Physician UnknownLaboratory Kndxnkt3795-77-77 05:21:00Identifier 31465- 6 Result Time 2019-02-26 05:21:00Unknown Test Item Value Reference Range Comments Unknown (test code = 1971-1) 0.6 mg/dL Unknown 0.3-1.0 F Ordering Physician UnknownLaboratory Eobzvlb7072-01-28 05:21:00Identifier 46871- 6 Result Time 2019-02-26 05:21:00Unknown Test Item Value Reference Range Comments Unknown (test code = NullTestCode) 2.5 g/dL Unknown 2-4 F Ordering Physician UnknownLaboratory Ywpwwbz0314-84-39 05:21:00Identifier 59155- 6 Result Time 2019-02-26 05:21:00Unknown Test Item Value Reference Range Comments Unknown (test code = 1968-7) 0.30 mg/dL Unknown 0.03-0.18 F Ordering Physician UnknownLaboratory Zcfknug5437-14-68 05:21:00Identifier 64876- 6 Result Time 2019-02-26 05:21:00Unknown Test Item Value Reference Range Comments Unknown (test code = 1920-8) 112 U/L Unknown 13-39 F Ordering Physician UnknownLaboratory Bbdtabe8947-83-38 05:21:00Identifier 66789- 6 Result Time 2019-02-26 05:21:00Unknown Test Item Value Reference Range Comments Unknown (test code = 6768-6) 342 U/L Unknown 34-104 F Ordering Physician UnknownLaboratory Ubyhgcq8014-61-58 05:21:00Identifier 75219- 6 Result Time 2019-02-26 05:21:00Unknown Test Item Value Reference Range Comments Unknown (test code = 1759-0) 1.4 Unknown 1-3 F Ordering Physician UnknownLaboratory Xtjeabf4245-03-95 05:21:00Identifier 62271- 6 Result Time 2019-02-26 05:21:00Unknown Test Item Value Reference Range Comments Unknown (test code = 33264-0) 3.6 g/dL Unknown 3.2-5.2 F Ordering Physician UnknownLaboratory Cfzdfap9935-27-98 05:21:00Identifier 71308- 6 Result Time 2019-02-26 05:21:00Unknown Test Item Value Reference Range Comments Unknown (test code = 1742-6) 133 U/L Unknown 7-52 F Ordering Physician UnknownLaboratory Hjzzbve4147-11-71 05:21:00Identifier 65869- 6 Result Time 2019-02-26 05:21:00Unknown Test Item Value Reference Range Comments Unknown (test code = 30883-7) 0.1 Unknown Unknown F Ordering Physician UnknownLaboratory Jpsfkad0263-67-27 05:21:00Identifier 46941- 6 Result Time 2019-02-26 05:21:00Unknown Test Item Value Reference Range Comments Unknown (test code = 771-6) 0.0 10^3/ul Unknown Unknown F Ordering Physician UnknownLaboratory Ccdddqg3892-24-90 05:21:00Identifier 21254- 6 Result Time 2019-02-26 05:21:00Unknown Test Item Value Reference Range Comments Unknown (test code = 770-8) 62.9 % Unknown Unknown F Ordering Physician UnknownLaboratory Gaibxmq4390-26-13 05:21:00Identifier 97095- 6 Result Time 2019-02-26 05:21:00Unknown Test Item Value Reference Range Comments Unknown (test code = 5905-5) 16.4 % Unknown Unknown F Ordering Physician UnknownLaboratory Bekialx1939-17-11 05:21:00Identifier 66460- 6 Result Time 2019-02-26 05:21:00Unknown Test Item Value Reference Range Comments Unknown (test code = 736-9) 16.5 % Unknown Unknown F Ordering Physician UnknownLaboratory Nodsqqo1015-91-50 05:21:00Identifier 98615- 6 Result Time 2019-02-26 05:21:00Unknown Test Item Value Reference Range Comments Unknown (test code = 713-8) 3.4 % Unknown Unknown F Ordering Physician UnknownLaboratory Evoojiw0921-05-74 05:21:00Identifier 55825- 6 Result Time 2019-02-26 05:21:00Unknown Test Item Value Reference Range Comments Unknown (test code = 706-2) 0.8 % Unknown Unknown F Ordering Physician UnknownLaboratory Amrcecn4308-64-07 05:21:00Identifier 79953- 6 Result Time 2019-02-26 05:21:00Unknown Test Item Value Reference Range Comments Unknown (test code = DMZ8631) 2.6 10^3/ul Unknown 1.5-7.7 F Ordering Physician UnknownLaboratory Juinfve5094-91-16 05:21:00Identifier 13862- 6 Result Time 2019-02-26 05:21:00Unknown Test Item Value Reference Range Comments Unknown (test code = 742-7) 0.7 10^3/ul Unknown 0-0.8 F Ordering Physician UnknownLaboratory Bgbibbd2324-95-72 05:21:00Identifier 81379- 6 Result Time 2019-02-26 05:21:00Unknown Test Item Value Reference Range Comments Unknown (test code = 731-0) 0.7 10^3/ul Unknown 1.0-4.8 F Ordering Physician UnknownLaboratory Ylmbmht7784-65-48 05:21:00Identifier 96134- 6 Result Time 2019-02-26 05:21:00Unknown Test Item Value Reference Range Comments Unknown (test code = 711-2) 0.1 10^3/ul Unknown 0-0.6 F Ordering Physician UnknownLaboratory Qndszpg8225-67-94 05:21:00Identifier 23660- 6 Result Time 2019-02-26 05:21:00Unknown Test Item Value Reference Range Comments Unknown (test code = 704-7) 0.0 10^3/ul Unknown 0-0.2 F Ordering Physician UnknownLaboratory Wiklrhg4827-53-00 18:33:00Identifier 30550- 6 Result Time 2019-02-23 18:33:00Unknown Test Item Value Reference Range Comments Unknown (test code = 5643-2) 236 mg/dL Unknown 0-10 F Ordering Physician UnknownLaboratory Gortoam1487-31-21 18:33:00Identifier 21468- 6 Result Time 2019-02-23 18:33:00Unknown Test Item Value Reference Range Comments Unknown (test code = 18112-8) 0.89 Unknown 0.82-1.09 F Ordering Physician UnknownLaboratory Omobyya6692-64-53 18:33:00Identifier 44534- 6 Result Time 2019-02-23 18:33:00Unknown Test Item Value Reference Range Comments Unknown (test code = 29135-7) 31.2 seconds Unknown 26.0-38.0 F Ordering Physician UnknownLaboratory Blzjzwp6837-00-96 18:33:00Identifier 16614- 6 Result Time 2019-02-23 18:33:00Unknown Test Item Value Reference Range Comments Unknown (test code = 2524-7) 1.6 mmol/L Unknown 0.5-2.0 F Ordering Physician UnknownLaboratory Msocfgb7581-25-06 18:32:00Identifier 89089- 6 Result Time 2019-02-23 18:32:00Unknown Test Item Value Reference Range Comments Unknown (test code = 42082-3) 0.01 s/c Unknown Unknown F Ordering Physician Unknown
--- OUTSIDE RECORDS SUMMARY | 2019-10-05 20:53 | XMS REPORT ---
:1960 Author Organization [facility] Care Team Providers Name Role Phone Unavailable [...] Result Comments Laboratory Studies 2019-03-01 05:54:00 Identifier [id number] Result Time Unknown 2019-03-01 05:54:00 Test Item Value Reference Range Comments Unknown (test code = 2951-2) 136 mmol/L Unknown 135-145 F Ordering Physician UnknownLaboratory Lasapzy4854-62-01 05:54:00Identifier 36417- 6 Result Time 2019-03-01 05:54:00Unknown Test Item Value Reference Range Comments Unknown (test code = 2823-3) 4.4 mmol/L Unknown 3.5-5.0 F Ordering Physician UnknownLaboratory Asbaulx6795-15-43 05:54:00Identifier 96565- 6 Result Time 2019-03-01 05:54:00Unknown Test Item Value Reference Range Comments Unknown (test code = 50195-1) 2.5 mg/dL Unknown 1.9-2.7 F Ordering Physician UnknownLaboratory Vkcgcgu8452-67-72 05:54:00Identifier 32124- 6 Result Time 2019-03-01 05:54:00Unknown Test Item Value Reference Range Comments Unknown (test code = 2345-7) 95 mg/dL Unknown 70-100 F Ordering Physician UnknownLaboratory Mudekaz6552-15-89 05:54:00Identifier 11067- 6 Result Time 2019-03-01 05:54:00Unknown Test Item Value Reference Range Comments Unknown (test code = 27891-4) 128.5 Unknown Unknown F Ordering Physician UnknownLaboratory Daslbdf4184-97-65 05:54:00Identifier 40200- 6 Result Time 2019-03-01 05:54:00Unknown Test Item Value Reference Range Comments Unknown (test code = NullTestCode) 155.4 Unknown Unknown F Ordering Physician UnknownLaboratory Fkjmqvs5009-20-47 05:54:00Identifier 51297- 6 Result Time 2019-03-01 05:54:00Unknown Test Item Value Reference Range Comments Unknown (test code = 2160-0) 0.64 mg/dL Unknown 0.67-1.17 F Ordering Physician UnknownLaboratory Rawwavb4574-19-76 05:54:00Identifier 84350- 6 Result Time 2019-03-01 05:54:00Unknown Test Item Value Reference Range Comments Unknown (test code = 2075-0) 102 mmol/L Unknown 101-111 F Ordering Physician UnknownLaboratory Dnvouma5311-90-41 05:54:00Identifier 86601- 6 Result Time 2019-03-01 05:54:00Unknown Test Item Value Reference Range Comments Unknown (test code = 2028-9) 29 mmol/L Unknown 22-32 F Ordering Physician UnknownLaboratory Bguypua3515-02-48 05:54:00Identifier 72369- 6 Result Time 2019-03-01 05:54:00Unknown Test Item Value Reference Range Comments Unknown (test code = 39570-8) 8.7 mg/dL Unknown 8.6-10.3 F Ordering Physician UnknownLaboratory Fikfven6473-92-74 05:54:00Identifier 64859- 6 Result Time 2019-03-01 05:54:00Unknown Test Item Value Reference Range Comments Unknown (test code = 3094-0) 18 mg/dL Unknown 6-24 F Ordering Physician UnknownLaboratory Sepxksz7074-11-55 05:54:00Identifier 36607- 6 Result Time 2019-03-01 05:54:00Unknown Test Item Value Reference Range Comments Unknown (test code = 3097-3) 28.1 Unknown 8-20 F Ordering Physician UnknownLaboratory Cbxsxnn3601-22-04 05:54:00Identifier 13986- 6 Result Time 2019-03-01 05:54:00Unknown Test Item Value Reference Range Comments Unknown (test code = 28839-1) 5 mmol/L Unknown 2-11 F Ordering Physician UnknownLaboratory Xetimva0758-06-54 08:50:00Identifier 48314- 6 Result Time 2019-02-27 08:50:00Unknown Test Item Value Reference Range Comments Unknown (test code = 67026-2) 5.2 10^3/uL Unknown 3.5-10.8 F Ordering Physician UnknownLaboratory Gbsnvxq8676-49-42 08:50:00Identifier 97875- 6 Result Time 2019-02-27 08:50:00Unknown Test Item Value Reference Range Comments Unknown (test code = 788-0) 15 % Unknown 10-15 F Ordering Physician UnknownLaboratory Ulhlwzx6230-05-66 08:50:00Identifier 64087- 6 Result Time 2019-02-27 08:50:00Unknown Test Item Value Reference Range Comments Unknown (test code = 789-8) 3.43 10^6 /uL Unknown 4.18-5.48 F Ordering Physician UnknownLaboratory Xyofija1949-81-62 08:50:00Identifier 23500- 6 Result Time 2019-02-27 08:50:00Unknown Test Item Value Reference Range Comments Unknown (test code = 777-3) 144 10^3/uL Unknown 150-450 F Ordering Physician UnknownLaboratory Qxtqejv0287-07-53 08:50:00Identifier 63600- 6 Result Time 2019-02-27 08:50:00Unknown Test Item Value Reference Range Comments Unknown (test code = 76268-7) 7.9 fL Unknown 7.4-10.4 F Ordering Physician UnknownLaboratory Llmxsnj6978-55-40 08:50:00Identifier 95636- 6 Result Time 2019-02-27 08:50:00Unknown Test Item Value Reference Range Comments Unknown (test code = 787-2) 97 fL Unknown 80-94 F Ordering Physician UnknownLaboratory Jwyygtm3681-31-25 08:50:00Identifier 06733- 6 Result Time 2019-02-27 08:50:00Unknown Test Item Value Reference Range Comments Unknown (test code = 786-4) 34 g/dL Unknown 31-36 F Ordering Physician UnknownLaboratory Wyytobg1142-22-10 08:50:00Identifier 58638- 6 Result Time 2019-02-27 08:50:00Unknown Test Item Value Reference Range Comments Unknown (test code = 785-6) 33 pg Unknown 27-31 F Ordering Physician UnknownLaboratory Judpjmd1760-29-53 08:50:00Identifier 93822- 6 Result Time 2019-02-27 08:50:00Unknown Test Item Value Reference Range Comments Unknown (test code = 718-7) 11.4 g/dL Unknown 14.0-18.0 F Ordering Physician UnknownLaboratory Crlnoor1273-94-26 08:50:00Identifier 35053- 6 Result Time 2019-02-27 08:50:00Unknown Test Item Value Reference Range Comments Unknown (test code = 4544-3) 33 % Unknown 42-52 F Ordering Physician UnknownLaboratory Oewjzzb5969-39-46 05:21:00Identifier 28102- 6 Result Time 2019-02-26 05:21:00Unknown Test Item Value Reference Range Comments Unknown (test code = 2885-2) 6.1 g/dL Unknown 6.4-8.9 F Ordering Physician UnknownLaboratory Vnrvjca0569-83-63 05:21:00Identifier 37105- 6 Result Time 2019-02-26 05:21:00Unknown Test Item Value Reference Range Comments Unknown (test code = 1975-2) 0.90 mg/dL Unknown 0.2-1.0 F Ordering Physician UnknownLaboratory Fnnqziw9570-18-87 05:21:00Identifier 29420- 6 Result Time 2019-02-26 05:21:00Unknown Test Item Value Reference Range Comments Unknown (test code = 2777-1) 3.7 mg/dL Unknown 2.5-5.0 F Ordering Physician UnknownLaboratory Mfimyrj4435-14-43 05:21:00Identifier 25459- 6 Result Time 2019-02-26 05:21:00Unknown Test Item Value Reference Range Comments Unknown (test code = 1971-1) 0.6 mg/dL Unknown 0.3-1.0 F Ordering Physician UnknownLaboratory Tivhhkh9764-30-90 05:21:00Identifier 61156- 6 Result Time 2019-02-26 05:21:00Unknown Test Item Value Reference Range Comments Unknown (test code = NullTestCode) 2.5 g/dL Unknown 2-4 F Ordering Physician UnknownLaboratory Zbshtly6079-28-86 05:21:00Identifier 89792- 6 Result Time 2019-02-26 05:21:00Unknown Test Item Value Reference Range Comments Unknown (test code = 1968-7) 0.30 mg/dL Unknown 0.03-0.18 F Ordering Physician UnknownLaboratory Mcdsdce3487-70-58 05:21:00Identifier 96040- 6 Result Time 2019-02-26 05:21:00Unknown Test Item Value Reference Range Comments Unknown (test code = 1920-8) 112 U/L Unknown 13-39 F Ordering Physician UnknownLaboratory Vrbtxel9788-39-12 05:21:00Identifier 05356- 6 Result Time 2019-02-26 05:21:00Unknown Test Item Value Reference Range Comments Unknown (test code = 6768-6) 342 U/L Unknown 34-104 F Ordering Physician UnknownLaboratory Aqhebdn4231-70-19 05:21:00Identifier 20282- 6 Result Time 2019-02-26 05:21:00Unknown Test Item Value Reference Range Comments Unknown (test code = 1759-0) 1.4 Unknown 1-3 F Ordering Physician UnknownLaboratory Gaonnnn1455-94-77 05:21:00Identifier 68758- 6 Result Time 2019-02-26 05:21:00Unknown Test Item Value Reference Range Comments Unknown (test code = 39316-0) 3.6 g/dL Unknown 3.2-5.2 F Ordering Physician UnknownLaboratory Ewagvxc8970-34-18 05:21:00Identifier 03704- 6 Result Time 2019-02-26 05:21:00Unknown Test Item Value Reference Range Comments Unknown (test code = 1742-6) 133 U/L Unknown 7-52 F Ordering Physician UnknownLaboratory Xskctrw7087-68-20 05:21:00Identifier 36490- 6 Result Time 2019-02-26 05:21:00Unknown Test Item Value Reference Range Comments Unknown (test code = 09899-9) 0.1 Unknown Unknown F Ordering Physician UnknownLaboratory Iwukoyw8088-70-19 05:21:00Identifier 99556- 6 Result Time 2019-02-26 05:21:00Unknown Test Item Value Reference Range Comments Unknown (test code = 771-6) 0.0 10^3/ul Unknown Unknown F Ordering Physician UnknownLaboratory Ulgsqge8497-28-71 05:21:00Identifier 48478- 6 Result Time 2019-02-26 05:21:00Unknown Test Item Value Reference Range Comments Unknown (test code = 770-8) 62.9 % Unknown Unknown F Ordering Physician UnknownLaboratory Payjulf4067-59-17 05:21:00Identifier 26793- 6 Result Time 2019-02-26 05:21:00Unknown Test Item Value Reference Range Comments Unknown (test code = 5905-5) 16.4 % Unknown Unknown F Ordering Physician UnknownLaboratory Phcrxyp6689-98-03 05:21:00Identifier 71009- 6 Result Time 2019-02-26 05:21:00Unknown Test Item Value Reference Range Comments Unknown (test code = 736-9) 16.5 % Unknown Unknown F Ordering Physician UnknownLaboratory Xpykmcq2712-41-79 05:21:00Identifier 32083- 6 Result Time 2019-02-26 05:21:00Unknown Test Item Value Reference Range Comments Unknown (test code = 713-8) 3.4 % Unknown Unknown F Ordering Physician UnknownLaboratory Gdnkdzh0820-95-81 05:21:00Identifier 42317- 6 Result Time 2019-02-26 05:21:00Unknown Test Item Value Reference Range Comments Unknown (test code = 706-2) 0.8 % Unknown Unknown F Ordering Physician UnknownLaboratory Tgumutk8688-32-71 05:21:00Identifier 78186- 6 Result Time 2019-02-26 05:21:00Unknown Test Item Value Reference Range Comments Unknown (test code = SLU4077) 2.6 10^3/ul Unknown 1.5-7.7 F Ordering Physician UnknownLaboratory Tpecdiy2110-76-15 05:21:00Identifier 97836- 6 Result Time 2019-02-26 05:21:00Unknown Test Item Value Reference Range Comments Unknown (test code = 742-7) 0.7 10^3/ul Unknown 0-0.8 F Ordering Physician UnknownLaboratory Ywsywat6056-80-99 05:21:00Identifier 84541- 6 Result Time 2019-02-26 05:21:00Unknown Test Item Value Reference Range Comments Unknown (test code = 731-0) 0.7 10^3/ul Unknown 1.0-4.8 F Ordering Physician UnknownLaboratory Vvqjlun8222-09-62 05:21:00Identifier 29850- 6 Result Time 2019-02-26 05:21:00Unknown Test Item Value Reference Range Comments Unknown (test code = 711-2) 0.1 10^3/ul Unknown 0-0.6 F Ordering Physician UnknownLaboratory Yrqkpgq9891-22-99 05:21:00Identifier 24469- 6 Result Time 2019-02-26 05:21:00Unknown Test Item Value Reference Range Comments Unknown (test code = 704-7) 0.0 10^3/ul Unknown 0-0.2 F Ordering Physician UnknownLaboratory Hhvmwtz5143-78-94 18:33:00Identifier 56911- 6 Result Time 2019-02-23 18:33:00Unknown Test Item Value Reference Range Comments Unknown (test code = 5643-2) 236 mg/dL Unknown 0-10 F Ordering Physician UnknownLaboratory Agsbwog5164-83-71 18:33:00Identifier 92438- 6 Result Time 2019-02-23 18:33:00Unknown Test Item Value Reference Range Comments Unknown (test code = 52392-1) 0.89 Unknown 0.82-1.09 F Ordering Physician UnknownLaboratory Zffrcdk5652-67-01 18:33:00Identifier 13415- 6 Result Time 2019-02-23 18:33:00Unknown Test Item Value Reference Range Comments Unknown (test code = 97344-8) 31.2 seconds Unknown 26.0-38.0 F Ordering Physician UnknownLaboratory Qsvwyfi8338-26-43 18:33:00Identifier 11425- 6 Result Time 2019-02-23 18:33:00Unknown Test Item Value Reference Range Comments Unknown (test code = 2524-7) 1.6 mmol/L Unknown 0.5-2.0 F Ordering Physician UnknownLaboratory Iiswkab5555-29-21 18:32:00Identifier 65124- 6 Result Time 2019-02-23 18:32:00Unknown Test Item Value Reference Range Comments Unknown (test code = 95644-6) 0.01 s/c Unknown Unknown F Ordering Physician Unknown
--- OUTSIDE RECORDS SUMMARY | 2019-10-05 20:53 | XMS REPORT ---
:1960 Author Organization [facility] Care Team Providers Name Role Phone Unavailable [...] Result Comments Laboratory Studies 2019-03-01 05:54:00 Identifier [id number] Result Time Unknown 2019-03-01 05:54:00 Test Item Value Reference Range Comments Unknown (test code = 2951-2) 136 mmol/L Unknown 135-145 F Ordering Physician UnknownLaboratory Djqayfk6760-99-07 05:54:00Identifier 15514- 6 Result Time 2019-03-01 05:54:00Unknown Test Item Value Reference Range Comments Unknown (test code = 2823-3) 4.4 mmol/L Unknown 3.5-5.0 F Ordering Physician UnknownLaboratory Fdtmzjp3678-64-09 05:54:00Identifier 82472- 6 Result Time 2019-03-01 05:54:00Unknown Test Item Value Reference Range Comments Unknown (test code = 49578-0) 2.5 mg/dL Unknown 1.9-2.7 F Ordering Physician UnknownLaboratory Ctafidy8106-12-50 05:54:00Identifier 72183- 6 Result Time 2019-03-01 05:54:00Unknown Test Item Value Reference Range Comments Unknown (test code = 2345-7) 95 mg/dL Unknown 70-100 F Ordering Physician UnknownLaboratory Kvuzlqw1796-18-09 05:54:00Identifier 28938- 6 Result Time 2019-03-01 05:54:00Unknown Test Item Value Reference Range Comments Unknown (test code = 29029-0) 128.5 Unknown Unknown F Ordering Physician UnknownLaboratory Rrnhiph9845-60-49 05:54:00Identifier 24537- 6 Result Time 2019-03-01 05:54:00Unknown Test Item Value Reference Range Comments Unknown (test code = NullTestCode) 155.4 Unknown Unknown F Ordering Physician UnknownLaboratory Cenewxv7638-93-08 05:54:00Identifier 04298- 6 Result Time 2019-03-01 05:54:00Unknown Test Item Value Reference Range Comments Unknown (test code = 2160-0) 0.64 mg/dL Unknown 0.67-1.17 F Ordering Physician UnknownLaboratory Zddgiqs9219-10-07 05:54:00Identifier 39553- 6 Result Time 2019-03-01 05:54:00Unknown Test Item Value Reference Range Comments Unknown (test code = 2075-0) 102 mmol/L Unknown 101-111 F Ordering Physician UnknownLaboratory Nozhjhh3089-44-10 05:54:00Identifier 95114- 6 Result Time 2019-03-01 05:54:00Unknown Test Item Value Reference Range Comments Unknown (test code = 2028-9) 29 mmol/L Unknown 22-32 F Ordering Physician UnknownLaboratory Kcaeuev1505-32-33 05:54:00Identifier 03526- 6 Result Time 2019-03-01 05:54:00Unknown Test Item Value Reference Range Comments Unknown (test code = 53143-7) 8.7 mg/dL Unknown 8.6-10.3 F Ordering Physician UnknownLaboratory Fnknwrf8910-21-29 05:54:00Identifier 43308- 6 Result Time 2019-03-01 05:54:00Unknown Test Item Value Reference Range Comments Unknown (test code = 3094-0) 18 mg/dL Unknown 6-24 F Ordering Physician UnknownLaboratory Pyjieas8461-39-81 05:54:00Identifier 87847- 6 Result Time 2019-03-01 05:54:00Unknown Test Item Value Reference Range Comments Unknown (test code = 3097-3) 28.1 Unknown 8-20 F Ordering Physician UnknownLaboratory Pnheksd3360-47-41 05:54:00Identifier 49782- 6 Result Time 2019-03-01 05:54:00Unknown Test Item Value Reference Range Comments Unknown (test code = 25028-6) 5 mmol/L Unknown 2-11 F Ordering Physician UnknownLaboratory Ixbcgki6670-55-61 08:50:00Identifier 70490- 6 Result Time 2019-02-27 08:50:00Unknown Test Item Value Reference Range Comments Unknown (test code = 03528-2) 5.2 10^3/uL Unknown 3.5-10.8 F Ordering Physician UnknownLaboratory Ohmskmz5711-02-20 08:50:00Identifier 90304- 6 Result Time 2019-02-27 08:50:00Unknown Test Item Value Reference Range Comments Unknown (test code = 788-0) 15 % Unknown 10-15 F Ordering Physician UnknownLaboratory Kvebokm6514-42-75 08:50:00Identifier 25337- 6 Result Time 2019-02-27 08:50:00Unknown Test Item Value Reference Range Comments Unknown (test code = 789-8) 3.43 10^6 /uL Unknown 4.18-5.48 F Ordering Physician UnknownLaboratory Nzchurr4782-19-43 08:50:00Identifier 56333- 6 Result Time 2019-02-27 08:50:00Unknown Test Item Value Reference Range Comments Unknown (test code = 777-3) 144 10^3/uL Unknown 150-450 F Ordering Physician UnknownLaboratory Wwcxmew9381-19-85 08:50:00Identifier 23062- 6 Result Time 2019-02-27 08:50:00Unknown Test Item Value Reference Range Comments Unknown (test code = 02028-2) 7.9 fL Unknown 7.4-10.4 F Ordering Physician UnknownLaboratory Fgjrgqv4612-04-84 08:50:00Identifier 51585- 6 Result Time 2019-02-27 08:50:00Unknown Test Item Value Reference Range Comments Unknown (test code = 787-2) 97 fL Unknown 80-94 F Ordering Physician UnknownLaboratory Uvipesx2648-61-63 08:50:00Identifier 27475- 6 Result Time 2019-02-27 08:50:00Unknown Test Item Value Reference Range Comments Unknown (test code = 786-4) 34 g/dL Unknown 31-36 F Ordering Physician UnknownLaboratory Ofhgbcr1840-99-27 08:50:00Identifier 71149- 6 Result Time 2019-02-27 08:50:00Unknown Test Item Value Reference Range Comments Unknown (test code = 785-6) 33 pg Unknown 27-31 F Ordering Physician UnknownLaboratory Eetckid1739-37-92 08:50:00Identifier 03729- 6 Result Time 2019-02-27 08:50:00Unknown Test Item Value Reference Range Comments Unknown (test code = 718-7) 11.4 g/dL Unknown 14.0-18.0 F Ordering Physician UnknownLaboratory Ufxhjtl6804-57-33 08:50:00Identifier 90124- 6 Result Time 2019-02-27 08:50:00Unknown Test Item Value Reference Range Comments Unknown (test code = 4544-3) 33 % Unknown 42-52 F Ordering Physician UnknownLaboratory Bouhejo6042-99-57 05:21:00Identifier 02906- 6 Result Time 2019-02-26 05:21:00Unknown Test Item Value Reference Range Comments Unknown (test code = 2885-2) 6.1 g/dL Unknown 6.4-8.9 F Ordering Physician UnknownLaboratory Iocobve1570-31-89 05:21:00Identifier 81063- 6 Result Time 2019-02-26 05:21:00Unknown Test Item Value Reference Range Comments Unknown (test code = 1975-2) 0.90 mg/dL Unknown 0.2-1.0 F Ordering Physician UnknownLaboratory Qpuhxdm3279-52-16 05:21:00Identifier 87876- 6 Result Time 2019-02-26 05:21:00Unknown Test Item Value Reference Range Comments Unknown (test code = 2777-1) 3.7 mg/dL Unknown 2.5-5.0 F Ordering Physician UnknownLaboratory Lfhquja6892-83-96 05:21:00Identifier 58740- 6 Result Time 2019-02-26 05:21:00Unknown Test Item Value Reference Range Comments Unknown (test code = 1971-1) 0.6 mg/dL Unknown 0.3-1.0 F Ordering Physician UnknownLaboratory Uvbydhi8648-59-74 05:21:00Identifier 56964- 6 Result Time 2019-02-26 05:21:00Unknown Test Item Value Reference Range Comments Unknown (test code = NullTestCode) 2.5 g/dL Unknown 2-4 F Ordering Physician UnknownLaboratory Tadynwj8693-94-57 05:21:00Identifier 79280- 6 Result Time 2019-02-26 05:21:00Unknown Test Item Value Reference Range Comments Unknown (test code = 1968-7) 0.30 mg/dL Unknown 0.03-0.18 F Ordering Physician UnknownLaboratory Zvzuedr4773-29-74 05:21:00Identifier 10702- 6 Result Time 2019-02-26 05:21:00Unknown Test Item Value Reference Range Comments Unknown (test code = 1920-8) 112 U/L Unknown 13-39 F Ordering Physician UnknownLaboratory Vngxlnl6621-49-04 05:21:00Identifier 65700- 6 Result Time 2019-02-26 05:21:00Unknown Test Item Value Reference Range Comments Unknown (test code = 6768-6) 342 U/L Unknown 34-104 F Ordering Physician UnknownLaboratory Pcnbobp0065-08-92 05:21:00Identifier 56780- 6 Result Time 2019-02-26 05:21:00Unknown Test Item Value Reference Range Comments Unknown (test code = 1759-0) 1.4 Unknown 1-3 F Ordering Physician UnknownLaboratory Waiilml7197-28-25 05:21:00Identifier 58931- 6 Result Time 2019-02-26 05:21:00Unknown Test Item Value Reference Range Comments Unknown (test code = 77765-8) 3.6 g/dL Unknown 3.2-5.2 F Ordering Physician UnknownLaboratory Zjvrjhm7482-72-41 05:21:00Identifier 36132- 6 Result Time 2019-02-26 05:21:00Unknown Test Item Value Reference Range Comments Unknown (test code = 1742-6) 133 U/L Unknown 7-52 F Ordering Physician UnknownLaboratory Egutwlr7113-88-34 05:21:00Identifier 48610- 6 Result Time 2019-02-26 05:21:00Unknown Test Item Value Reference Range Comments Unknown (test code = 06935-1) 0.1 Unknown Unknown F Ordering Physician UnknownLaboratory Arvdryz2887-96-73 05:21:00Identifier 58660- 6 Result Time 2019-02-26 05:21:00Unknown Test Item Value Reference Range Comments Unknown (test code = 771-6) 0.0 10^3/ul Unknown Unknown F Ordering Physician UnknownLaboratory Hbpcwmm2752-79-49 05:21:00Identifier 70539- 6 Result Time 2019-02-26 05:21:00Unknown Test Item Value Reference Range Comments Unknown (test code = 770-8) 62.9 % Unknown Unknown F Ordering Physician UnknownLaboratory Evrblao5783-95-70 05:21:00Identifier 00201- 6 Result Time 2019-02-26 05:21:00Unknown Test Item Value Reference Range Comments Unknown (test code = 5905-5) 16.4 % Unknown Unknown F Ordering Physician UnknownLaboratory Yxgqfcd5115-38-62 05:21:00Identifier 79829- 6 Result Time 2019-02-26 05:21:00Unknown Test Item Value Reference Range Comments Unknown (test code = 736-9) 16.5 % Unknown Unknown F Ordering Physician UnknownLaboratory Tdevrtg7541-66-33 05:21:00Identifier 21318- 6 Result Time 2019-02-26 05:21:00Unknown Test Item Value Reference Range Comments Unknown (test code = 713-8) 3.4 % Unknown Unknown F Ordering Physician UnknownLaboratory Hsmytsz5680-78-56 05:21:00Identifier 80417- 6 Result Time 2019-02-26 05:21:00Unknown Test Item Value Reference Range Comments Unknown (test code = 706-2) 0.8 % Unknown Unknown F Ordering Physician UnknownLaboratory Kyxbbry7995-21-45 05:21:00Identifier 69821- 6 Result Time 2019-02-26 05:21:00Unknown Test Item Value Reference Range Comments Unknown (test code = UYG0671) 2.6 10^3/ul Unknown 1.5-7.7 F Ordering Physician UnknownLaboratory Jrfnqcz2940-36-39 05:21:00Identifier 86675- 6 Result Time 2019-02-26 05:21:00Unknown Test Item Value Reference Range Comments Unknown (test code = 742-7) 0.7 10^3/ul Unknown 0-0.8 F Ordering Physician UnknownLaboratory Hbwrcjq7015-63-11 05:21:00Identifier 73666- 6 Result Time 2019-02-26 05:21:00Unknown Test Item Value Reference Range Comments Unknown (test code = 731-0) 0.7 10^3/ul Unknown 1.0-4.8 F Ordering Physician UnknownLaboratory Nzdqcfb5647-66-15 05:21:00Identifier 20812- 6 Result Time 2019-02-26 05:21:00Unknown Test Item Value Reference Range Comments Unknown (test code = 711-2) 0.1 10^3/ul Unknown 0-0.6 F Ordering Physician UnknownLaboratory Roxkgqs1437-23-40 05:21:00Identifier 29619- 6 Result Time 2019-02-26 05:21:00Unknown Test Item Value Reference Range Comments Unknown (test code = 704-7) 0.0 10^3/ul Unknown 0-0.2 F Ordering Physician UnknownLaboratory Znyibff1853-09-06 18:33:00Identifier 11836- 6 Result Time 2019-02-23 18:33:00Unknown Test Item Value Reference Range Comments Unknown (test code = 5643-2) 236 mg/dL Unknown 0-10 F Ordering Physician UnknownLaboratory Vcyjmwe4301-00-48 18:33:00Identifier 74614- 6 Result Time 2019-02-23 18:33:00Unknown Test Item Value Reference Range Comments Unknown (test code = 58148-1) 0.89 Unknown 0.82-1.09 F Ordering Physician UnknownLaboratory Kikehzf8572-24-61 18:33:00Identifier 14966- 6 Result Time 2019-02-23 18:33:00Unknown Test Item Value Reference Range Comments Unknown (test code = 47224-0) 31.2 seconds Unknown 26.0-38.0 F Ordering Physician UnknownLaboratory Vrgvcyd3288-80-35 18:33:00Identifier 97708- 6 Result Time 2019-02-23 18:33:00Unknown Test Item Value Reference Range Comments Unknown (test code = 2524-7) 1.6 mmol/L Unknown 0.5-2.0 F Ordering Physician UnknownLaboratory Cjclolg3245-53-57 18:32:00Identifier 87683- 6 Result Time 2019-02-23 18:32:00Unknown Test Item Value Reference Range Comments Unknown (test code = 41445-2) 0.01 s/c Unknown Unknown F Ordering Physician Unknown
--- OUTSIDE RECORDS SUMMARY | 2019-10-05 20:53 | XMS REPORT ---
:1960 Author Organization [facility] Care Team Providers Name Role Phone Unavailable [...] Result Comments Laboratory Studies 2019-03-01 05:54:00 Identifier [id number] Result Time Unknown 2019-03-01 05:54:00 Test Item Value Reference Range Comments Unknown (test code = 2951-2) 136 mmol/L Unknown 135-145 F Ordering Physician UnknownLaboratory Ilzfodj6481-92-41 05:54:00Identifier [id number]- 6 Result Time 2019-03-01 05:54:00Unknown Test Item Value Reference Range Comments Unknown (test code = 2823-3) 4.4 mmol/L Unknown 3.5-5.0 F Ordering Physician UnknownLaboratory Yiarede0905-32-11 05:54:00Identifier 41425- 6 Result Time 2019-03-01 05:54:00Unknown Test Item Value Reference Range Comments Unknown (test code = 74150-2) 2.5 mg/dL Unknown 1.9-2.7 F Ordering Physician UnknownLaboratory Mnevkug9959-39-27 05:54:00Identifier [id number]- 6 Result Time 2019-03-01 05:54:00Unknown Test Item Value Reference Range Comments Unknown (test code = 2345-7) 95 mg/dL Unknown 70-100 F Ordering Physician UnknownLaboratory Pcxkrpb2947-35-01 05:54:00Identifier 96366- 6 Result Time 2019-03-01 05:54:00Unknown Test Item Value Reference Range Comments Unknown (test code = 16950-3) 128.5 Unknown Unknown F Ordering Physician UnknownLaboratory Eqcraoo7769-57-31 05:54:00Identifier [id number]- 6 Result Time 2019-03-01 05:54:00Unknown Test Item Value Reference Range Comments Unknown (test code = NullTestCode) 155.4 Unknown Unknown F Ordering Physician UnknownLaboratory Futiwnj8007-55-70 05:54:00Identifier 31951- 6 Result Time 2019-03-01 05:54:00Unknown Test Item Value Reference Range Comments Unknown (test code = 2160-0) 0.64 mg/dL Unknown 0.67-1.17 F Ordering Physician UnknownLaboratory Alepgso3328-60-65 05:54:00Identifier 39645- 6 Result Time 2019-03-01 05:54:00Unknown Test Item Value Reference Range Comments Unknown (test code = 2075-0) 102 mmol/L Unknown 101-111 F Ordering Physician UnknownLaboratory Atgtiwf4907-98-86 05:54:00Identifier 10465- 6 Result Time 2019-03-01 05:54:00Unknown Test Item Value Reference Range Comments Unknown (test code = 2028-9) 29 mmol/L Unknown 22-32 F Ordering Physician UnknownLaboratory Nevcnyn5478-22-29 05:54:00Identifier 05068- 6 Result Time 2019-03-01 05:54:00Unknown Test Item Value Reference Range Comments Unknown (test code = 79363-1) 8.7 mg/dL Unknown 8.6-10.3 F Ordering Physician UnknownLaboratory Afbyxsh9710-83-67 05:54:00Identifier 85037- 6 Result Time 2019-03-01 05:54:00Unknown Test Item Value Reference Range Comments Unknown (test code = 3094-0) 18 mg/dL Unknown 6-24 F Ordering Physician UnknownLaboratory Tfhmyiq4952-23-49 05:54:00Identifier 05919- 6 Result Time 2019-03-01 05:54:00Unknown Test Item Value Reference Range Comments Unknown (test code = 3097-3) 28.1 Unknown 8-20 F Ordering Physician UnknownLaboratory Gtqotzs6817-31-04 05:54:00Identifier 80040- 6 Result Time 2019-03-01 05:54:00Unknown Test Item Value Reference Range Comments Unknown (test code = 63405-2) 5 mmol/L Unknown 2-11 F Ordering Physician UnknownLaboratory Qykipjb7934-39-26 08:50:00Identifier 72156- 6 Result Time 2019-02-27 08:50:00Unknown Test Item Value Reference Range Comments Unknown (test code = 14185-4) 5.2 10^3/uL Unknown 3.5-10.8 F Ordering Physician UnknownLaboratory Xagwfbu6897-03-14 08:50:00Identifier 72131- 6 Result Time 2019-02-27 08:50:00Unknown Test Item Value Reference Range Comments Unknown (test code = 788-0) 15 % Unknown 10-15 F Ordering Physician UnknownLaboratory Zzduobe8249-32-60 08:50:00Identifier 66085- 6 Result Time 2019-02-27 08:50:00Unknown Test Item Value Reference Range Comments Unknown (test code = 789-8) 3.43 10^6 /uL Unknown 4.18-5.48 F Ordering Physician UnknownLaboratory Gcmxidt6871-08-75 08:50:00Identifier 74014- 6 Result Time 2019-02-27 08:50:00Unknown Test Item Value Reference Range Comments Unknown (test code = 777-3) 144 10^3/uL Unknown 150-450 F Ordering Physician UnknownLaboratory Jkfpdun6768-24-33 08:50:00Identifier 56281- 6 Result Time 2019-02-27 08:50:00Unknown Test Item Value Reference Range Comments Unknown (test code = 42954-9) 7.9 fL Unknown 7.4-10.4 F Ordering Physician UnknownLaboratory Myffruz0783-15-19 08:50:00Identifier 85458- 6 Result Time 2019-02-27 08:50:00Unknown Test Item Value Reference Range Comments Unknown (test code = 787-2) 97 fL Unknown 80-94 F Ordering Physician UnknownLaboratory Oamtuow9946-08-59 08:50:00Identifier 63186- 6 Result Time 2019-02-27 08:50:00Unknown Test Item Value Reference Range Comments Unknown (test code = 786-4) 34 g/dL Unknown 31-36 F Ordering Physician UnknownLaboratory Rugomwd6156-88-90 08:50:00Identifier 32195- 6 Result Time 2019-02-27 08:50:00Unknown Test Item Value Reference Range Comments Unknown (test code = 785-6) 33 pg Unknown 27-31 F Ordering Physician UnknownLaboratory Yiysgrt0557-80-48 08:50:00Identifier 88508- 6 Result Time 2019-02-27 08:50:00Unknown Test Item Value Reference Range Comments Unknown (test code = 718-7) 11.4 g/dL Unknown 14.0-18.0 F Ordering Physician UnknownLaboratory Uwwlyvw2761-15-94 08:50:00Identifier 09619- 6 Result Time 2019-02-27 08:50:00Unknown Test Item Value Reference Range Comments Unknown (test code = 4544-3) 33 % Unknown 42-52 F Ordering Physician UnknownLaboratory Lkqipmf2512-25-30 05:21:00Identifier 69826- 6 Result Time 2019-02-26 05:21:00Unknown Test Item Value Reference Range Comments Unknown (test code = 2885-2) 6.1 g/dL Unknown 6.4-8.9 F Ordering Physician UnknownLaboratory Czjkcln8017-08-88 05:21:00Identifier 25518- 6 Result Time 2019-02-26 05:21:00Unknown Test Item Value Reference Range Comments Unknown (test code = 1975-2) 0.90 mg/dL Unknown 0.2-1.0 F Ordering Physician UnknownLaboratory Fijxpfv3372-40-15 05:21:00Identifier 22306- 6 Result Time 2019-02-26 05:21:00Unknown Test Item Value Reference Range Comments Unknown (test code = 2777-1) 3.7 mg/dL Unknown 2.5-5.0 F Ordering Physician UnknownLaboratory Mkdpqlg9625-93-86 05:21:00Identifier 67972- 6 Result Time 2019-02-26 05:21:00Unknown Test Item Value Reference Range Comments Unknown (test code = 1971-1) 0.6 mg/dL Unknown 0.3-1.0 F Ordering Physician UnknownLaboratory Pvhnbow4466-18-87 05:21:00Identifier 51336- 6 Result Time 2019-02-26 05:21:00Unknown Test Item Value Reference Range Comments Unknown (test code = NullTestCode) 2.5 g/dL Unknown 2-4 F Ordering Physician UnknownLaboratory Wbpctkx8792-63-26 05:21:00Identifier 53161- 6 Result Time 2019-02-26 05:21:00Unknown Test Item Value Reference Range Comments Unknown (test code = 1968-7) 0.30 mg/dL Unknown 0.03-0.18 F Ordering Physician UnknownLaboratory Nkjasqd7519-00-08 05:21:00Identifier 34819- 6 Result Time 2019-02-26 05:21:00Unknown Test Item Value Reference Range Comments Unknown (test code = 1920-8) 112 U/L Unknown 13-39 F Ordering Physician UnknownLaboratory Zlxiacw8582-24-89 05:21:00Identifier 13935- 6 Result Time 2019-02-26 05:21:00Unknown Test Item Value Reference Range Comments Unknown (test code = 6768-6) 342 U/L Unknown 34-104 F Ordering Physician UnknownLaboratory Otdbegq0586-90-07 05:21:00Identifier 62133- 6 Result Time 2019-02-26 05:21:00Unknown Test Item Value Reference Range Comments Unknown (test code = 1759-0) 1.4 Unknown 1-3 F Ordering Physician UnknownLaboratory Azwhovn9257-98-87 05:21:00Identifier 62263- 6 Result Time 2019-02-26 05:21:00Unknown Test Item Value Reference Range Comments Unknown (test code = 23609-2) 3.6 g/dL Unknown 3.2-5.2 F Ordering Physician UnknownLaboratory Kkiafwj4919-05-01 05:21:00Identifier 43882- 6 Result Time 2019-02-26 05:21:00Unknown Test Item Value Reference Range Comments Unknown (test code = 1742-6) 133 U/L Unknown 7-52 F Ordering Physician UnknownLaboratory Pxhsgea5533-34-85 05:21:00Identifier 43735- 6 Result Time 2019-02-26 05:21:00Unknown Test Item Value Reference Range Comments Unknown (test code = 35985-3) 0.1 Unknown Unknown F Ordering Physician UnknownLaboratory Dhrzroi0292-88-68 05:21:00Identifier 77788- 6 Result Time 2019-02-26 05:21:00Unknown Test Item Value Reference Range Comments Unknown (test code = 771-6) 0.0 10^3/ul Unknown Unknown F Ordering Physician UnknownLaboratory Thaujbr8909-21-48 05:21:00Identifier 46953- 6 Result Time 2019-02-26 05:21:00Unknown Test Item Value Reference Range Comments Unknown (test code = 770-8) 62.9 % Unknown Unknown F Ordering Physician UnknownLaboratory Carsqnt7577-12-73 05:21:00Identifier 03859- 6 Result Time 2019-02-26 05:21:00Unknown Test Item Value Reference Range Comments Unknown (test code = 5905-5) 16.4 % Unknown Unknown F Ordering Physician UnknownLaboratory Vlizoup9248-00-42 05:21:00Identifier 22158- 6 Result Time 2019-02-26 05:21:00Unknown Test Item Value Reference Range Comments Unknown (test code = 736-9) 16.5 % Unknown Unknown F Ordering Physician UnknownLaboratory Hdivwuw0435-01-21 05:21:00Identifier 70882- 6 Result Time 2019-02-26 05:21:00Unknown Test Item Value Reference Range Comments Unknown (test code = 713-8) 3.4 % Unknown Unknown F Ordering Physician UnknownLaboratory Dpodfrf7455-42-92 05:21:00Identifier 36977- 6 Result Time 2019-02-26 05:21:00Unknown Test Item Value Reference Range Comments Unknown (test code = 706-2) 0.8 % Unknown Unknown F Ordering Physician UnknownLaboratory Afgyraq0307-85-37 05:21:00Identifier 89614- 6 Result Time 2019-02-26 05:21:00Unknown Test Item Value Reference Range Comments Unknown (test code = FVY4614) 2.6 10^3/ul Unknown 1.5-7.7 F Ordering Physician UnknownLaboratory Nejucbz1284-20-35 05:21:00Identifier 50140- 6 Result Time 2019-02-26 05:21:00Unknown Test Item Value Reference Range Comments Unknown (test code = 742-7) 0.7 10^3/ul Unknown 0-0.8 F Ordering Physician UnknownLaboratory Uugxhvj1221-16-43 05:21:00Identifier 43847- 6 Result Time 2019-02-26 05:21:00Unknown Test Item Value Reference Range Comments Unknown (test code = 731-0) 0.7 10^3/ul Unknown 1.0-4.8 F Ordering Physician UnknownLaboratory Prgekvt1547-81-01 05:21:00Identifier 54652- 6 Result Time 2019-02-26 05:21:00Unknown Test Item Value Reference Range Comments Unknown (test code = 711-2) 0.1 10^3/ul Unknown 0-0.6 F Ordering Physician UnknownLaboratory Yumaxyo9225-19-48 05:21:00Identifier 40132- 6 Result Time 2019-02-26 05:21:00Unknown Test Item Value Reference Range Comments Unknown (test code = 704-7) 0.0 10^3/ul Unknown 0-0.2 F Ordering Physician UnknownLaboratory Jlzghbl3802-39-99 18:33:00Identifier 69440- 6 Result Time 2019-02-23 18:33:00Unknown Test Item Value Reference Range Comments Unknown (test code = 5643-2) 236 mg/dL Unknown 0-10 F Ordering Physician UnknownLaboratory Fmcwkhw6019-60-22 18:33:00Identifier 50141- 6 Result Time 2019-02-23 18:33:00Unknown Test Item Value Reference Range Comments Unknown (test code = 53185-9) 0.89 Unknown 0.82-1.09 F Ordering Physician UnknownLaboratory Nagyftc1389-29-32 18:33:00Identifier 99004- 6 Result Time 2019-02-23 18:33:00Unknown Test Item Value Reference Range Comments Unknown (test code = 49444-9) 31.2 seconds Unknown 26.0-38.0 F Ordering Physician UnknownLaboratory Oeydqlq7401-47-98 18:33:00Identifier 16820- 6 Result Time 2019-02-23 18:33:00Unknown Test Item Value Reference Range Comments Unknown (test code = 2524-7) 1.6 mmol/L Unknown 0.5-2.0 F Ordering Physician UnknownLaboratory Wdrwvmd2093-49-96 18:32:00Identifier 29866- 6 Result Time 2019-02-23 18:32:00Unknown Test Item Value Reference Range Comments Unknown (test code = 32573-5) 0.01 s/c Unknown Unknown F Ordering Physician Unknown
--- OUTSIDE RECORDS SUMMARY | 2019-10-05 20:53 | XMS REPORT ---
:1960 Author Organization [facility] Care Team Providers Name Role Phone Unavailable [...] Result Comments Laboratory Studies 2019-03-01 05:54:00 Identifier [id number] Result Time Unknown 2019-03-01 05:54:00 Test Item Value Reference Range Comments Unknown (test code = 2951-2) 136 mmol/L Unknown 135-145 F Ordering Physician UnknownLaboratory Cpkspay9397-50-09 05:54:00Identifier 88086- 6 Result Time 2019-03-01 05:54:00Unknown Test Item Value Reference Range Comments Unknown (test code = 2823-3) 4.4 mmol/L Unknown 3.5-5.0 F Ordering Physician UnknownLaboratory Gnjnccv7608-24-88 05:54:00Identifier 87923- 6 Result Time 2019-03-01 05:54:00Unknown Test Item Value Reference Range Comments Unknown (test code = 60965-3) 2.5 mg/dL Unknown 1.9-2.7 F Ordering Physician UnknownLaboratory Nyjubai3580-31-70 05:54:00Identifier 64493- 6 Result Time 2019-03-01 05:54:00Unknown Test Item Value Reference Range Comments Unknown (test code = 2345-7) 95 mg/dL Unknown 70-100 F Ordering Physician UnknownLaboratory Epekmon4115-86-06 05:54:00Identifier 68176- 6 Result Time 2019-03-01 05:54:00Unknown Test Item Value Reference Range Comments Unknown (test code = 46412-6) 128.5 Unknown Unknown F Ordering Physician UnknownLaboratory Qfjfsko5197-29-14 05:54:00Identifier 62788- 6 Result Time 2019-03-01 05:54:00Unknown Test Item Value Reference Range Comments Unknown (test code = NullTestCode) 155.4 Unknown Unknown F Ordering Physician UnknownLaboratory Ttikcqu2680-27-16 05:54:00Identifier 75498- 6 Result Time 2019-03-01 05:54:00Unknown Test Item Value Reference Range Comments Unknown (test code = 2160-0) 0.64 mg/dL Unknown 0.67-1.17 F Ordering Physician UnknownLaboratory Abyoulu7854-75-10 05:54:00Identifier 96651- 6 Result Time 2019-03-01 05:54:00Unknown Test Item Value Reference Range Comments Unknown (test code = 2075-0) 102 mmol/L Unknown 101-111 F Ordering Physician UnknownLaboratory Apmmxus0563-90-05 05:54:00Identifier 27301- 6 Result Time 2019-03-01 05:54:00Unknown Test Item Value Reference Range Comments Unknown (test code = 2028-9) 29 mmol/L Unknown 22-32 F Ordering Physician UnknownLaboratory Hcdcbpl5544-18-21 05:54:00Identifier 32291- 6 Result Time 2019-03-01 05:54:00Unknown Test Item Value Reference Range Comments Unknown (test code = 19179-4) 8.7 mg/dL Unknown 8.6-10.3 F Ordering Physician UnknownLaboratory Cjqexip3670-67-37 05:54:00Identifier 40743- 6 Result Time 2019-03-01 05:54:00Unknown Test Item Value Reference Range Comments Unknown (test code = 3094-0) 18 mg/dL Unknown 6-24 F Ordering Physician UnknownLaboratory Ehfsujw6419-65-79 05:54:00Identifier 23496- 6 Result Time 2019-03-01 05:54:00Unknown Test Item Value Reference Range Comments Unknown (test code = 3097-3) 28.1 Unknown 8-20 F Ordering Physician UnknownLaboratory Stvghxp5392-81-03 05:54:00Identifier 86830- 6 Result Time 2019-03-01 05:54:00Unknown Test Item Value Reference Range Comments Unknown (test code = 70467-6) 5 mmol/L Unknown 2-11 F Ordering Physician UnknownLaboratory Yryjblv6650-71-10 08:50:00Identifier 32315- 6 Result Time 2019-02-27 08:50:00Unknown Test Item Value Reference Range Comments Unknown (test code = 90895-1) 5.2 10^3/uL Unknown 3.5-10.8 F Ordering Physician UnknownLaboratory Ueryzru2410-89-71 08:50:00Identifier 13538- 6 Result Time 2019-02-27 08:50:00Unknown Test Item Value Reference Range Comments Unknown (test code = 788-0) 15 % Unknown 10-15 F Ordering Physician UnknownLaboratory Cebmpew7367-75-62 08:50:00Identifier 68622- 6 Result Time 2019-02-27 08:50:00Unknown Test Item Value Reference Range Comments Unknown (test code = 789-8) 3.43 10^6 /uL Unknown 4.18-5.48 F Ordering Physician UnknownLaboratory Otlbhvy2979-53-15 08:50:00Identifier 90764- 6 Result Time 2019-02-27 08:50:00Unknown Test Item Value Reference Range Comments Unknown (test code = 777-3) 144 10^3/uL Unknown 150-450 F Ordering Physician UnknownLaboratory Isqonvh7947-73-56 08:50:00Identifier 41895- 6 Result Time 2019-02-27 08:50:00Unknown Test Item Value Reference Range Comments Unknown (test code = 87308-3) 7.9 fL Unknown 7.4-10.4 F Ordering Physician UnknownLaboratory Iyekhbd8318-14-00 08:50:00Identifier 65179- 6 Result Time 2019-02-27 08:50:00Unknown Test Item Value Reference Range Comments Unknown (test code = 787-2) 97 fL Unknown 80-94 F Ordering Physician UnknownLaboratory Eqabilg8778-59-93 08:50:00Identifier 21664- 6 Result Time 2019-02-27 08:50:00Unknown Test Item Value Reference Range Comments Unknown (test code = 786-4) 34 g/dL Unknown 31-36 F Ordering Physician UnknownLaboratory Xrpknjw1733-62-57 08:50:00Identifier 35716- 6 Result Time 2019-02-27 08:50:00Unknown Test Item Value Reference Range Comments Unknown (test code = 785-6) 33 pg Unknown 27-31 F Ordering Physician UnknownLaboratory Opipwta1892-11-32 08:50:00Identifier 69979- 6 Result Time 2019-02-27 08:50:00Unknown Test Item Value Reference Range Comments Unknown (test code = 718-7) 11.4 g/dL Unknown 14.0-18.0 F Ordering Physician UnknownLaboratory Uyooueb8206-49-70 08:50:00Identifier 57288- 6 Result Time 2019-02-27 08:50:00Unknown Test Item Value Reference Range Comments Unknown (test code = 4544-3) 33 % Unknown 42-52 F Ordering Physician UnknownLaboratory Inmrapc5719-15-83 05:21:00Identifier 70160- 6 Result Time 2019-02-26 05:21:00Unknown Test Item Value Reference Range Comments Unknown (test code = 2885-2) 6.1 g/dL Unknown 6.4-8.9 F Ordering Physician UnknownLaboratory Ukyethy4934-62-98 05:21:00Identifier 30719- 6 Result Time 2019-02-26 05:21:00Unknown Test Item Value Reference Range Comments Unknown (test code = 1975-2) 0.90 mg/dL Unknown 0.2-1.0 F Ordering Physician UnknownLaboratory Ohbfbpq1417-39-37 05:21:00Identifier 19275- 6 Result Time 2019-02-26 05:21:00Unknown Test Item Value Reference Range Comments Unknown (test code = 2777-1) 3.7 mg/dL Unknown 2.5-5.0 F Ordering Physician UnknownLaboratory Jfkeoja4015-38-55 05:21:00Identifier 88880- 6 Result Time 2019-02-26 05:21:00Unknown Test Item Value Reference Range Comments Unknown (test code = 1971-1) 0.6 mg/dL Unknown 0.3-1.0 F Ordering Physician UnknownLaboratory Ldfqyrt6164-23-30 05:21:00Identifier 60813- 6 Result Time 2019-02-26 05:21:00Unknown Test Item Value Reference Range Comments Unknown (test code = NullTestCode) 2.5 g/dL Unknown 2-4 F Ordering Physician UnknownLaboratory Htftfgf5648-80-67 05:21:00Identifier 94329- 6 Result Time 2019-02-26 05:21:00Unknown Test Item Value Reference Range Comments Unknown (test code = 1968-7) 0.30 mg/dL Unknown 0.03-0.18 F Ordering Physician UnknownLaboratory Hbuasyu5881-35-56 05:21:00Identifier 32984- 6 Result Time 2019-02-26 05:21:00Unknown Test Item Value Reference Range Comments Unknown (test code = 1920-8) 112 U/L Unknown 13-39 F Ordering Physician UnknownLaboratory Pvglsle1614-05-21 05:21:00Identifier 04432- 6 Result Time 2019-02-26 05:21:00Unknown Test Item Value Reference Range Comments Unknown (test code = 6768-6) 342 U/L Unknown 34-104 F Ordering Physician UnknownLaboratory Gapnwot9307-28-25 05:21:00Identifier 05210- 6 Result Time 2019-02-26 05:21:00Unknown Test Item Value Reference Range Comments Unknown (test code = 1759-0) 1.4 Unknown 1-3 F Ordering Physician UnknownLaboratory Wfirflw8042-00-51 05:21:00Identifier 78264- 6 Result Time 2019-02-26 05:21:00Unknown Test Item Value Reference Range Comments Unknown (test code = 02145-7) 3.6 g/dL Unknown 3.2-5.2 F Ordering Physician UnknownLaboratory Vpokbim7143-47-02 05:21:00Identifier 35658- 6 Result Time 2019-02-26 05:21:00Unknown Test Item Value Reference Range Comments Unknown (test code = 1742-6) 133 U/L Unknown 7-52 F Ordering Physician UnknownLaboratory Czanifr8628-75-81 05:21:00Identifier 02369- 6 Result Time 2019-02-26 05:21:00Unknown Test Item Value Reference Range Comments Unknown (test code = 22201-4) 0.1 Unknown Unknown F Ordering Physician UnknownLaboratory Xepvzmh3205-25-84 05:21:00Identifier 11949- 6 Result Time 2019-02-26 05:21:00Unknown Test Item Value Reference Range Comments Unknown (test code = 771-6) 0.0 10^3/ul Unknown Unknown F Ordering Physician UnknownLaboratory Prucyih4302-63-29 05:21:00Identifier 43793- 6 Result Time 2019-02-26 05:21:00Unknown Test Item Value Reference Range Comments Unknown (test code = 770-8) 62.9 % Unknown Unknown F Ordering Physician UnknownLaboratory Xaefwml2600-40-94 05:21:00Identifier 39660- 6 Result Time 2019-02-26 05:21:00Unknown Test Item Value Reference Range Comments Unknown (test code = 5905-5) 16.4 % Unknown Unknown F Ordering Physician UnknownLaboratory Nnsthsy9368-74-82 05:21:00Identifier 01140- 6 Result Time 2019-02-26 05:21:00Unknown Test Item Value Reference Range Comments Unknown (test code = 736-9) 16.5 % Unknown Unknown F Ordering Physician UnknownLaboratory Trxiwas6098-74-86 05:21:00Identifier 40392- 6 Result Time 2019-02-26 05:21:00Unknown Test Item Value Reference Range Comments Unknown (test code = 713-8) 3.4 % Unknown Unknown F Ordering Physician UnknownLaboratory Urruxvg4497-52-38 05:21:00Identifier 51620- 6 Result Time 2019-02-26 05:21:00Unknown Test Item Value Reference Range Comments Unknown (test code = 706-2) 0.8 % Unknown Unknown F Ordering Physician UnknownLaboratory Gsgplii9885-10-93 05:21:00Identifier 20432- 6 Result Time 2019-02-26 05:21:00Unknown Test Item Value Reference Range Comments Unknown (test code = PXC5742) 2.6 10^3/ul Unknown 1.5-7.7 F Ordering Physician UnknownLaboratory Wvzsaso2111-11-66 05:21:00Identifier 76152- 6 Result Time 2019-02-26 05:21:00Unknown Test Item Value Reference Range Comments Unknown (test code = 742-7) 0.7 10^3/ul Unknown 0-0.8 F Ordering Physician UnknownLaboratory Lnpagrn5782-97-14 05:21:00Identifier 12457- 6 Result Time 2019-02-26 05:21:00Unknown Test Item Value Reference Range Comments Unknown (test code = 731-0) 0.7 10^3/ul Unknown 1.0-4.8 F Ordering Physician UnknownLaboratory Kjgahje9827-10-51 05:21:00Identifier 84160- 6 Result Time 2019-02-26 05:21:00Unknown Test Item Value Reference Range Comments Unknown (test code = 711-2) 0.1 10^3/ul Unknown 0-0.6 F Ordering Physician UnknownLaboratory Kqyhcpm2057-27-60 05:21:00Identifier 62822- 6 Result Time 2019-02-26 05:21:00Unknown Test Item Value Reference Range Comments Unknown (test code = 704-7) 0.0 10^3/ul Unknown 0-0.2 F Ordering Physician UnknownLaboratory Icptzst1121-98-11 18:33:00Identifier 79834- 6 Result Time 2019-02-23 18:33:00Unknown Test Item Value Reference Range Comments Unknown (test code = 5643-2) 236 mg/dL Unknown 0-10 F Ordering Physician UnknownLaboratory Pryomax9577-72-56 18:33:00Identifier 16529- 6 Result Time 2019-02-23 18:33:00Unknown Test Item Value Reference Range Comments Unknown (test code = 28589-4) 0.89 Unknown 0.82-1.09 F Ordering Physician UnknownLaboratory Stuwvls7731-62-48 18:33:00Identifier 96923- 6 Result Time 2019-02-23 18:33:00Unknown Test Item Value Reference Range Comments Unknown (test code = 57629-0) 31.2 seconds Unknown 26.0-38.0 F Ordering Physician UnknownLaboratory Bdjhsdj2970-43-47 18:33:00Identifier 17729- 6 Result Time 2019-02-23 18:33:00Unknown Test Item Value Reference Range Comments Unknown (test code = 2524-7) 1.6 mmol/L Unknown 0.5-2.0 F Ordering Physician UnknownLaboratory Ndnnsco6124-52-01 18:32:00Identifier 89719- 6 Result Time 2019-02-23 18:32:00Unknown Test Item Value Reference Range Comments Unknown (test code = 69928-6) 0.01 s/c Unknown Unknown F Ordering Physician Unknown
--- OUTSIDE RECORDS SUMMARY | 2019-10-05 20:53 | XMS REPORT ---
:1960 Author Organization [facility] Care Team Providers Name Role Phone Unavailable [...] Result Comments Laboratory Studies 2019-03-01 05:54:00 Identifier [id number] Result Time Unknown 2019-03-01 05:54:00 Test Item Value Reference Range Comments Unknown (test code = 2951-2) 136 mmol/L Unknown 135-145 F Ordering Physician UnknownLaboratory Jaotsme2107-21-16 05:54:00Identifier [id number]- 6 Result Time 2019-03-01 05:54:00Unknown Test Item Value Reference Range Comments Unknown (test code = 2823-3) 4.4 mmol/L Unknown 3.5-5.0 F Ordering Physician UnknownLaboratory Kiblyvp5458-95-26 05:54:00Identifier 87150- 6 Result Time 2019-03-01 05:54:00Unknown Test Item Value Reference Range Comments Unknown (test code = 54560-6) 2.5 mg/dL Unknown 1.9-2.7 F Ordering Physician UnknownLaboratory Fycsahk8707-07-91 05:54:00Identifier 99726- 6 Result Time 2019-03-01 05:54:00Unknown Test Item Value Reference Range Comments Unknown (test code = 2345-7) 95 mg/dL Unknown 70-100 F Ordering Physician UnknownLaboratory Zrikwbt5263-59-71 05:54:00Identifier 87075- 6 Result Time 2019-03-01 05:54:00Unknown Test Item Value Reference Range Comments Unknown (test code = 64055-4) 128.5 Unknown Unknown F Ordering Physician UnknownLaboratory Xxmasxf1170-89-31 05:54:00Identifier 85152- 6 Result Time 2019-03-01 05:54:00Unknown Test Item Value Reference Range Comments Unknown (test code = NullTestCode) 155.4 Unknown Unknown F Ordering Physician UnknownLaboratory Tmypbdk8571-77-00 05:54:00Identifier 56825- 6 Result Time 2019-03-01 05:54:00Unknown Test Item Value Reference Range Comments Unknown (test code = 2160-0) 0.64 mg/dL Unknown 0.67-1.17 F Ordering Physician UnknownLaboratory Lecvdsx3691-15-56 05:54:00Identifier 80063- 6 Result Time 2019-03-01 05:54:00Unknown Test Item Value Reference Range Comments Unknown (test code = 2075-0) 102 mmol/L Unknown 101-111 F Ordering Physician UnknownLaboratory Mgghrus7433-21-26 05:54:00Identifier 95386- 6 Result Time 2019-03-01 05:54:00Unknown Test Item Value Reference Range Comments Unknown (test code = 2028-9) 29 mmol/L Unknown 22-32 F Ordering Physician UnknownLaboratory Xyyplbu0433-86-58 05:54:00Identifier 84945- 6 Result Time 2019-03-01 05:54:00Unknown Test Item Value Reference Range Comments Unknown (test code = 66498-8) 8.7 mg/dL Unknown 8.6-10.3 F Ordering Physician UnknownLaboratory Ovrkvlv3901-14-44 05:54:00Identifier 31045- 6 Result Time 2019-03-01 05:54:00Unknown Test Item Value Reference Range Comments Unknown (test code = 3094-0) 18 mg/dL Unknown 6-24 F Ordering Physician UnknownLaboratory Iykkwzk5735-11-57 05:54:00Identifier 94139- 6 Result Time 2019-03-01 05:54:00Unknown Test Item Value Reference Range Comments Unknown (test code = 3097-3) 28.1 Unknown 8-20 F Ordering Physician UnknownLaboratory Lyxwpkb6308-23-67 05:54:00Identifier 86837- 6 Result Time 2019-03-01 05:54:00Unknown Test Item Value Reference Range Comments Unknown (test code = 31257-5) 5 mmol/L Unknown 2-11 F Ordering Physician UnknownLaboratory Isqvrfd1549-92-74 08:50:00Identifier 43869- 6 Result Time 2019-02-27 08:50:00Unknown Test Item Value Reference Range Comments Unknown (test code = 02539-1) 5.2 10^3/uL Unknown 3.5-10.8 F Ordering Physician UnknownLaboratory Xwyhaad5940-28-69 08:50:00Identifier 73857- 6 Result Time 2019-02-27 08:50:00Unknown Test Item Value Reference Range Comments Unknown (test code = 788-0) 15 % Unknown 10-15 F Ordering Physician UnknownLaboratory Cndxoeu4014-05-13 08:50:00Identifier 60172- 6 Result Time 2019-02-27 08:50:00Unknown Test Item Value Reference Range Comments Unknown (test code = 789-8) 3.43 10^6 /uL Unknown 4.18-5.48 F Ordering Physician UnknownLaboratory Quabacf8170-77-40 08:50:00Identifier 45726- 6 Result Time 2019-02-27 08:50:00Unknown Test Item Value Reference Range Comments Unknown (test code = 777-3) 144 10^3/uL Unknown 150-450 F Ordering Physician UnknownLaboratory Nsfxjqp0504-14-72 08:50:00Identifier 42001- 6 Result Time 2019-02-27 08:50:00Unknown Test Item Value Reference Range Comments Unknown (test code = 96440-0) 7.9 fL Unknown 7.4-10.4 F Ordering Physician UnknownLaboratory Rdtghoc4884-91-44 08:50:00Identifier 63323- 6 Result Time 2019-02-27 08:50:00Unknown Test Item Value Reference Range Comments Unknown (test code = 787-2) 97 fL Unknown 80-94 F Ordering Physician UnknownLaboratory Kjuksdp2781-82-49 08:50:00Identifier 80412- 6 Result Time 2019-02-27 08:50:00Unknown Test Item Value Reference Range Comments Unknown (test code = 786-4) 34 g/dL Unknown 31-36 F Ordering Physician UnknownLaboratory Omibkdv5219-08-31 08:50:00Identifier 40500- 6 Result Time 2019-02-27 08:50:00Unknown Test Item Value Reference Range Comments Unknown (test code = 785-6) 33 pg Unknown 27-31 F Ordering Physician UnknownLaboratory Pmxgbal3041-47-66 08:50:00Identifier 71472- 6 Result Time 2019-02-27 08:50:00Unknown Test Item Value Reference Range Comments Unknown (test code = 718-7) 11.4 g/dL Unknown 14.0-18.0 F Ordering Physician UnknownLaboratory Arljdlq0859-37-17 08:50:00Identifier 43009- 6 Result Time 2019-02-27 08:50:00Unknown Test Item Value Reference Range Comments Unknown (test code = 4544-3) 33 % Unknown 42-52 F Ordering Physician UnknownLaboratory Kgqnssd5035-91-74 05:21:00Identifier 84441- 6 Result Time 2019-02-26 05:21:00Unknown Test Item Value Reference Range Comments Unknown (test code = 2885-2) 6.1 g/dL Unknown 6.4-8.9 F Ordering Physician UnknownLaboratory Hnugsxk1087-85-26 05:21:00Identifier 15562- 6 Result Time 2019-02-26 05:21:00Unknown Test Item Value Reference Range Comments Unknown (test code = 1975-2) 0.90 mg/dL Unknown 0.2-1.0 F Ordering Physician UnknownLaboratory Dthacal9235-24-73 05:21:00Identifier 17375- 6 Result Time 2019-02-26 05:21:00Unknown Test Item Value Reference Range Comments Unknown (test code = 2777-1) 3.7 mg/dL Unknown 2.5-5.0 F Ordering Physician UnknownLaboratory Ginitlu7439-43-98 05:21:00Identifier 97387- 6 Result Time 2019-02-26 05:21:00Unknown Test Item Value Reference Range Comments Unknown (test code = 1971-1) 0.6 mg/dL Unknown 0.3-1.0 F Ordering Physician UnknownLaboratory Widjaea2981-46-26 05:21:00Identifier 40391- 6 Result Time 2019-02-26 05:21:00Unknown Test Item Value Reference Range Comments Unknown (test code = NullTestCode) 2.5 g/dL Unknown 2-4 F Ordering Physician UnknownLaboratory Iibhmtv4098-22-29 05:21:00Identifier 59343- 6 Result Time 2019-02-26 05:21:00Unknown Test Item Value Reference Range Comments Unknown (test code = 1968-7) 0.30 mg/dL Unknown 0.03-0.18 F Ordering Physician UnknownLaboratory Boxejgk4837-40-38 05:21:00Identifier 03260- 6 Result Time 2019-02-26 05:21:00Unknown Test Item Value Reference Range Comments Unknown (test code = 1920-8) 112 U/L Unknown 13-39 F Ordering Physician UnknownLaboratory Ijkltko1645-84-11 05:21:00Identifier 05421- 6 Result Time 2019-02-26 05:21:00Unknown Test Item Value Reference Range Comments Unknown (test code = 6768-6) 342 U/L Unknown 34-104 F Ordering Physician UnknownLaboratory Yqytiqy5812-36-39 05:21:00Identifier 09261- 6 Result Time 2019-02-26 05:21:00Unknown Test Item Value Reference Range Comments Unknown (test code = 1759-0) 1.4 Unknown 1-3 F Ordering Physician UnknownLaboratory Ionvbgo2678-97-53 05:21:00Identifier 74885- 6 Result Time 2019-02-26 05:21:00Unknown Test Item Value Reference Range Comments Unknown (test code = 30534-7) 3.6 g/dL Unknown 3.2-5.2 F Ordering Physician UnknownLaboratory Xxubtqw4683-63-75 05:21:00Identifier 80800- 6 Result Time 2019-02-26 05:21:00Unknown Test Item Value Reference Range Comments Unknown (test code = 1742-6) 133 U/L Unknown 7-52 F Ordering Physician UnknownLaboratory Roqvznx0766-03-42 05:21:00Identifier 94977- 6 Result Time 2019-02-26 05:21:00Unknown Test Item Value Reference Range Comments Unknown (test code = 75186-9) 0.1 Unknown Unknown F Ordering Physician UnknownLaboratory Lfsrryu2600-27-48 05:21:00Identifier 37992- 6 Result Time 2019-02-26 05:21:00Unknown Test Item Value Reference Range Comments Unknown (test code = 771-6) 0.0 10^3/ul Unknown Unknown F Ordering Physician UnknownLaboratory Wbodzsk3180-67-05 05:21:00Identifier 21475- 6 Result Time 2019-02-26 05:21:00Unknown Test Item Value Reference Range Comments Unknown (test code = 770-8) 62.9 % Unknown Unknown F Ordering Physician UnknownLaboratory Sfysosh4757-82-36 05:21:00Identifier 76577- 6 Result Time 2019-02-26 05:21:00Unknown Test Item Value Reference Range Comments Unknown (test code = 5905-5) 16.4 % Unknown Unknown F Ordering Physician UnknownLaboratory Gawjbha0605-22-85 05:21:00Identifier 09433- 6 Result Time 2019-02-26 05:21:00Unknown Test Item Value Reference Range Comments Unknown (test code = 736-9) 16.5 % Unknown Unknown F Ordering Physician UnknownLaboratory Ylyoudb1326-83-36 05:21:00Identifier 42369- 6 Result Time 2019-02-26 05:21:00Unknown Test Item Value Reference Range Comments Unknown (test code = 713-8) 3.4 % Unknown Unknown F Ordering Physician UnknownLaboratory Rlcdjsu6805-55-76 05:21:00Identifier 87802- 6 Result Time 2019-02-26 05:21:00Unknown Test Item Value Reference Range Comments Unknown (test code = 706-2) 0.8 % Unknown Unknown F Ordering Physician UnknownLaboratory Ijqiehw7518-06-75 05:21:00Identifier 13839- 6 Result Time 2019-02-26 05:21:00Unknown Test Item Value Reference Range Comments Unknown (test code = ATZ2828) 2.6 10^3/ul Unknown 1.5-7.7 F Ordering Physician UnknownLaboratory Dpasyvl3574-95-04 05:21:00Identifier 62507- 6 Result Time 2019-02-26 05:21:00Unknown Test Item Value Reference Range Comments Unknown (test code = 742-7) 0.7 10^3/ul Unknown 0-0.8 F Ordering Physician UnknownLaboratory Wmcoomi7980-64-82 05:21:00Identifier 55918- 6 Result Time 2019-02-26 05:21:00Unknown Test Item Value Reference Range Comments Unknown (test code = 731-0) 0.7 10^3/ul Unknown 1.0-4.8 F Ordering Physician UnknownLaboratory Hpkhwne9561-38-47 05:21:00Identifier 97321- 6 Result Time 2019-02-26 05:21:00Unknown Test Item Value Reference Range Comments Unknown (test code = 711-2) 0.1 10^3/ul Unknown 0-0.6 F Ordering Physician UnknownLaboratory Ayqyjkg1671-51-07 05:21:00Identifier 95193- 6 Result Time 2019-02-26 05:21:00Unknown Test Item Value Reference Range Comments Unknown (test code = 704-7) 0.0 10^3/ul Unknown 0-0.2 F Ordering Physician UnknownLaboratory Hvvpsuo6274-36-39 18:33:00Identifier 44677- 6 Result Time 2019-02-23 18:33:00Unknown Test Item Value Reference Range Comments Unknown (test code = 5643-2) 236 mg/dL Unknown 0-10 F Ordering Physician UnknownLaboratory Falsmdx1214-29-74 18:33:00Identifier 61319- 6 Result Time 2019-02-23 18:33:00Unknown Test Item Value Reference Range Comments Unknown (test code = 86854-5) 0.89 Unknown 0.82-1.09 F Ordering Physician UnknownLaboratory Gzcojda1238-10-73 18:33:00Identifier 96538- 6 Result Time 2019-02-23 18:33:00Unknown Test Item Value Reference Range Comments Unknown (test code = 61267-4) 31.2 seconds Unknown 26.0-38.0 F Ordering Physician UnknownLaboratory Nmkonbk1547-16-57 18:33:00Identifier 03774- 6 Result Time 2019-02-23 18:33:00Unknown Test Item Value Reference Range Comments Unknown (test code = 2524-7) 1.6 mmol/L Unknown 0.5-2.0 F Ordering Physician UnknownLaboratory Atwyxut5092-19-98 18:32:00Identifier 58373- 6 Result Time 2019-02-23 18:32:00Unknown Test Item Value Reference Range Comments Unknown (test code = 90229-0) 0.01 s/c Unknown Unknown F Ordering Physician Unknown
--- OUTSIDE RECORDS SUMMARY | 2019-10-05 20:53 | XMS REPORT ---
:1960 Author Organization [facility] Care Team Providers Name Role Phone Unavailable [...] Result Comments Laboratory Studies 2019-03-01 05:54:00 Identifier [id number] Result Time Unknown 2019-03-01 05:54:00 Test Item Value Reference Range Comments Unknown (test code = 2951-2) 136 mmol/L Unknown 135-145 F Ordering Physician UnknownLaboratory Hevwehe5361-66-94 05:54:00Identifier 83994- 6 Result Time 2019-03-01 05:54:00Unknown Test Item Value Reference Range Comments Unknown (test code = 2823-3) 4.4 mmol/L Unknown 3.5-5.0 F Ordering Physician UnknownLaboratory Ykitqxw7087-33-78 05:54:00Identifier 23177- 6 Result Time 2019-03-01 05:54:00Unknown Test Item Value Reference Range Comments Unknown (test code = 37334-6) 2.5 mg/dL Unknown 1.9-2.7 F Ordering Physician UnknownLaboratory Zhmnvxy1592-95-28 05:54:00Identifier 31768- 6 Result Time 2019-03-01 05:54:00Unknown Test Item Value Reference Range Comments Unknown (test code = 2345-7) 95 mg/dL Unknown 70-100 F Ordering Physician UnknownLaboratory Xaxvfot5749-43-88 05:54:00Identifier 94988- 6 Result Time 2019-03-01 05:54:00Unknown Test Item Value Reference Range Comments Unknown (test code = 02735-1) 128.5 Unknown Unknown F Ordering Physician UnknownLaboratory Xngowmo4065-75-99 05:54:00Identifier 89616- 6 Result Time 2019-03-01 05:54:00Unknown Test Item Value Reference Range Comments Unknown (test code = NullTestCode) 155.4 Unknown Unknown F Ordering Physician UnknownLaboratory Jexrksn8630-59-61 05:54:00Identifier 47217- 6 Result Time 2019-03-01 05:54:00Unknown Test Item Value Reference Range Comments Unknown (test code = 2160-0) 0.64 mg/dL Unknown 0.67-1.17 F Ordering Physician UnknownLaboratory Uvjdjex2954-44-92 05:54:00Identifier 18553- 6 Result Time 2019-03-01 05:54:00Unknown Test Item Value Reference Range Comments Unknown (test code = 2075-0) 102 mmol/L Unknown 101-111 F Ordering Physician UnknownLaboratory Temielr7523-05-30 05:54:00Identifier 70098- 6 Result Time 2019-03-01 05:54:00Unknown Test Item Value Reference Range Comments Unknown (test code = 2028-9) 29 mmol/L Unknown 22-32 F Ordering Physician UnknownLaboratory Rsagghg5487-53-39 05:54:00Identifier 38915- 6 Result Time 2019-03-01 05:54:00Unknown Test Item Value Reference Range Comments Unknown (test code = 73414-1) 8.7 mg/dL Unknown 8.6-10.3 F Ordering Physician UnknownLaboratory Sxcaind4608-41-05 05:54:00Identifier 76226- 6 Result Time 2019-03-01 05:54:00Unknown Test Item Value Reference Range Comments Unknown (test code = 3094-0) 18 mg/dL Unknown 6-24 F Ordering Physician UnknownLaboratory Enmndlc0562-70-71 05:54:00Identifier 62342- 6 Result Time 2019-03-01 05:54:00Unknown Test Item Value Reference Range Comments Unknown (test code = 3097-3) 28.1 Unknown 8-20 F Ordering Physician UnknownLaboratory Lhwthcr9520-35-02 05:54:00Identifier 37203- 6 Result Time 2019-03-01 05:54:00Unknown Test Item Value Reference Range Comments Unknown (test code = 25303-5) 5 mmol/L Unknown 2-11 F Ordering Physician UnknownLaboratory Yayuiby2349-87-00 08:50:00Identifier 33367- 6 Result Time 2019-02-27 08:50:00Unknown Test Item Value Reference Range Comments Unknown (test code = 48055-6) 5.2 10^3/uL Unknown 3.5-10.8 F Ordering Physician UnknownLaboratory Pmwcdnm6537-12-23 08:50:00Identifier 89574- 6 Result Time 2019-02-27 08:50:00Unknown Test Item Value Reference Range Comments Unknown (test code = 788-0) 15 % Unknown 10-15 F Ordering Physician UnknownLaboratory Lrrvgxh6822-71-50 08:50:00Identifier 05430- 6 Result Time 2019-02-27 08:50:00Unknown Test Item Value Reference Range Comments Unknown (test code = 789-8) 3.43 10^6 /uL Unknown 4.18-5.48 F Ordering Physician UnknownLaboratory Kxolkpw8905-48-63 08:50:00Identifier 48908- 6 Result Time 2019-02-27 08:50:00Unknown Test Item Value Reference Range Comments Unknown (test code = 777-3) 144 10^3/uL Unknown 150-450 F Ordering Physician UnknownLaboratory Qxlfvtf0264-08-56 08:50:00Identifier 13633- 6 Result Time 2019-02-27 08:50:00Unknown Test Item Value Reference Range Comments Unknown (test code = 19829-6) 7.9 fL Unknown 7.4-10.4 F Ordering Physician UnknownLaboratory Eeakpsm1423-98-12 08:50:00Identifier 19630- 6 Result Time 2019-02-27 08:50:00Unknown Test Item Value Reference Range Comments Unknown (test code = 787-2) 97 fL Unknown 80-94 F Ordering Physician UnknownLaboratory Sjftjvd0567-33-11 08:50:00Identifier 89656- 6 Result Time 2019-02-27 08:50:00Unknown Test Item Value Reference Range Comments Unknown (test code = 786-4) 34 g/dL Unknown 31-36 F Ordering Physician UnknownLaboratory Ustjupx5190-60-00 08:50:00Identifier 66394- 6 Result Time 2019-02-27 08:50:00Unknown Test Item Value Reference Range Comments Unknown (test code = 785-6) 33 pg Unknown 27-31 F Ordering Physician UnknownLaboratory Bgodvau5998-75-94 08:50:00Identifier 27315- 6 Result Time 2019-02-27 08:50:00Unknown Test Item Value Reference Range Comments Unknown (test code = 718-7) 11.4 g/dL Unknown 14.0-18.0 F Ordering Physician UnknownLaboratory Nvtiark2877-98-92 08:50:00Identifier 03714- 6 Result Time 2019-02-27 08:50:00Unknown Test Item Value Reference Range Comments Unknown (test code = 4544-3) 33 % Unknown 42-52 F Ordering Physician UnknownLaboratory Ogovrtc3532-16-52 05:21:00Identifier 70562- 6 Result Time 2019-02-26 05:21:00Unknown Test Item Value Reference Range Comments Unknown (test code = 2885-2) 6.1 g/dL Unknown 6.4-8.9 F Ordering Physician UnknownLaboratory Nghagkx6980-22-47 05:21:00Identifier 11293- 6 Result Time 2019-02-26 05:21:00Unknown Test Item Value Reference Range Comments Unknown (test code = 1975-2) 0.90 mg/dL Unknown 0.2-1.0 F Ordering Physician UnknownLaboratory Lwwygvv1843-97-85 05:21:00Identifier 78003- 6 Result Time 2019-02-26 05:21:00Unknown Test Item Value Reference Range Comments Unknown (test code = 2777-1) 3.7 mg/dL Unknown 2.5-5.0 F Ordering Physician UnknownLaboratory Czflafr9797-87-11 05:21:00Identifier 60555- 6 Result Time 2019-02-26 05:21:00Unknown Test Item Value Reference Range Comments Unknown (test code = 1971-1) 0.6 mg/dL Unknown 0.3-1.0 F Ordering Physician UnknownLaboratory Sqdkcno3982-99-37 05:21:00Identifier 21710- 6 Result Time 2019-02-26 05:21:00Unknown Test Item Value Reference Range Comments Unknown (test code = NullTestCode) 2.5 g/dL Unknown 2-4 F Ordering Physician UnknownLaboratory Urhdmok1250-56-86 05:21:00Identifier 46230- 6 Result Time 2019-02-26 05:21:00Unknown Test Item Value Reference Range Comments Unknown (test code = 1968-7) 0.30 mg/dL Unknown 0.03-0.18 F Ordering Physician UnknownLaboratory Gsxtvuh0570-33-25 05:21:00Identifier 78933- 6 Result Time 2019-02-26 05:21:00Unknown Test Item Value Reference Range Comments Unknown (test code = 1920-8) 112 U/L Unknown 13-39 F Ordering Physician UnknownLaboratory Fnrrsgr2257-26-33 05:21:00Identifier 24847- 6 Result Time 2019-02-26 05:21:00Unknown Test Item Value Reference Range Comments Unknown (test code = 6768-6) 342 U/L Unknown 34-104 F Ordering Physician UnknownLaboratory Wjymzdk3963-75-84 05:21:00Identifier 36817- 6 Result Time 2019-02-26 05:21:00Unknown Test Item Value Reference Range Comments Unknown (test code = 1759-0) 1.4 Unknown 1-3 F Ordering Physician UnknownLaboratory Ieswgql0644-10-94 05:21:00Identifier 43984- 6 Result Time 2019-02-26 05:21:00Unknown Test Item Value Reference Range Comments Unknown (test code = 78548-7) 3.6 g/dL Unknown 3.2-5.2 F Ordering Physician UnknownLaboratory Fbdujjs4482-90-57 05:21:00Identifier 04702- 6 Result Time 2019-02-26 05:21:00Unknown Test Item Value Reference Range Comments Unknown (test code = 1742-6) 133 U/L Unknown 7-52 F Ordering Physician UnknownLaboratory Kreziyn6133-36-03 05:21:00Identifier 67537- 6 Result Time 2019-02-26 05:21:00Unknown Test Item Value Reference Range Comments Unknown (test code = 64532-1) 0.1 Unknown Unknown F Ordering Physician UnknownLaboratory Hvmuchz8115-21-54 05:21:00Identifier 86339- 6 Result Time 2019-02-26 05:21:00Unknown Test Item Value Reference Range Comments Unknown (test code = 771-6) 0.0 10^3/ul Unknown Unknown F Ordering Physician UnknownLaboratory Wyffgsj7282-03-74 05:21:00Identifier 85669- 6 Result Time 2019-02-26 05:21:00Unknown Test Item Value Reference Range Comments Unknown (test code = 770-8) 62.9 % Unknown Unknown F Ordering Physician UnknownLaboratory Tjkmonr8824-67-72 05:21:00Identifier 68389- 6 Result Time 2019-02-26 05:21:00Unknown Test Item Value Reference Range Comments Unknown (test code = 5905-5) 16.4 % Unknown Unknown F Ordering Physician UnknownLaboratory Ovhbekn1063-73-70 05:21:00Identifier 77810- 6 Result Time 2019-02-26 05:21:00Unknown Test Item Value Reference Range Comments Unknown (test code = 736-9) 16.5 % Unknown Unknown F Ordering Physician UnknownLaboratory Kquxmdp9348-31-44 05:21:00Identifier 53443- 6 Result Time 2019-02-26 05:21:00Unknown Test Item Value Reference Range Comments Unknown (test code = 713-8) 3.4 % Unknown Unknown F Ordering Physician UnknownLaboratory Lskodbw1966-63-45 05:21:00Identifier 23051- 6 Result Time 2019-02-26 05:21:00Unknown Test Item Value Reference Range Comments Unknown (test code = 706-2) 0.8 % Unknown Unknown F Ordering Physician UnknownLaboratory Vflhdjl5896-52-43 05:21:00Identifier 68381- 6 Result Time 2019-02-26 05:21:00Unknown Test Item Value Reference Range Comments Unknown (test code = IUY8011) 2.6 10^3/ul Unknown 1.5-7.7 F Ordering Physician UnknownLaboratory Xszduec1389-96-33 05:21:00Identifier 81533- 6 Result Time 2019-02-26 05:21:00Unknown Test Item Value Reference Range Comments Unknown (test code = 742-7) 0.7 10^3/ul Unknown 0-0.8 F Ordering Physician UnknownLaboratory Rudlkag8722-67-41 05:21:00Identifier 80915- 6 Result Time 2019-02-26 05:21:00Unknown Test Item Value Reference Range Comments Unknown (test code = 731-0) 0.7 10^3/ul Unknown 1.0-4.8 F Ordering Physician UnknownLaboratory Sfwezlx0575-26-59 05:21:00Identifier 63975- 6 Result Time 2019-02-26 05:21:00Unknown Test Item Value Reference Range Comments Unknown (test code = 711-2) 0.1 10^3/ul Unknown 0-0.6 F Ordering Physician UnknownLaboratory Gawtbto4169-61-73 05:21:00Identifier 35782- 6 Result Time 2019-02-26 05:21:00Unknown Test Item Value Reference Range Comments Unknown (test code = 704-7) 0.0 10^3/ul Unknown 0-0.2 F Ordering Physician UnknownLaboratory Vvphxyx7618-54-80 18:33:00Identifier 47966- 6 Result Time 2019-02-23 18:33:00Unknown Test Item Value Reference Range Comments Unknown (test code = 5643-2) 236 mg/dL Unknown 0-10 F Ordering Physician UnknownLaboratory Crtwmxh8238-13-28 18:33:00Identifier 23567- 6 Result Time 2019-02-23 18:33:00Unknown Test Item Value Reference Range Comments Unknown (test code = 72270-1) 0.89 Unknown 0.82-1.09 F Ordering Physician UnknownLaboratory Xppcvto8632-34-88 18:33:00Identifier 07220- 6 Result Time 2019-02-23 18:33:00Unknown Test Item Value Reference Range Comments Unknown (test code = 06111-8) 31.2 seconds Unknown 26.0-38.0 F Ordering Physician UnknownLaboratory Nbygdqd2344-25-30 18:33:00Identifier 97778- 6 Result Time 2019-02-23 18:33:00Unknown Test Item Value Reference Range Comments Unknown (test code = 2524-7) 1.6 mmol/L Unknown 0.5-2.0 F Ordering Physician UnknownLaboratory Rafpctc4499-78-44 18:32:00Identifier 61868- 6 Result Time 2019-02-23 18:32:00Unknown Test Item Value Reference Range Comments Unknown (test code = 66798-9) 0.01 s/c Unknown Unknown F Ordering Physician Unknown
--- OUTSIDE RECORDS SUMMARY | 2019-10-05 20:53 | XMS REPORT ---
:1960 Author Organization [facility] Care Team Providers Name Role Phone Unavailable [...] Result Comments Laboratory Studies 2019-03-01 05:54:00 Identifier [id number] Result Time Unknown 2019-03-01 05:54:00 Test Item Value Reference Range Comments Unknown (test code = 2951-2) 136 mmol/L Unknown 135-145 F Ordering Physician UnknownLaboratory Tclrlri4494-35-04 05:54:00Identifier [id number]- 6 Result Time 2019-03-01 05:54:00Unknown Test Item Value Reference Range Comments Unknown (test code = 2823-3) 4.4 mmol/L Unknown 3.5-5.0 F Ordering Physician UnknownLaboratory Emrmxpf9057-53-44 05:54:00Identifier 01260- 6 Result Time 2019-03-01 05:54:00Unknown Test Item Value Reference Range Comments Unknown (test code = 75254-9) 2.5 mg/dL Unknown 1.9-2.7 F Ordering Physician UnknownLaboratory Gvpsbjm8137-86-31 05:54:00Identifier 33087- 6 Result Time 2019-03-01 05:54:00Unknown Test Item Value Reference Range Comments Unknown (test code = 2345-7) 95 mg/dL Unknown 70-100 F Ordering Physician UnknownLaboratory Gxlnmcv1832-47-45 05:54:00Identifier 00479- 6 Result Time 2019-03-01 05:54:00Unknown Test Item Value Reference Range Comments Unknown (test code = 79940-8) 128.5 Unknown Unknown F Ordering Physician UnknownLaboratory Ufiodds7557-09-31 05:54:00Identifier 00195- 6 Result Time 2019-03-01 05:54:00Unknown Test Item Value Reference Range Comments Unknown (test code = NullTestCode) 155.4 Unknown Unknown F Ordering Physician UnknownLaboratory Avffiso2873-82-18 05:54:00Identifier [id number]- 6 Result Time 2019-03-01 05:54:00Unknown Test Item Value Reference Range Comments Unknown (test code = 2160-0) 0.64 mg/dL Unknown 0.67-1.17 F Ordering Physician UnknownLaboratory Qznvbbg1088-76-68 05:54:00Identifier 35696- 6 Result Time 2019-03-01 05:54:00Unknown Test Item Value Reference Range Comments Unknown (test code = 2075-0) 102 mmol/L Unknown 101-111 F Ordering Physician UnknownLaboratory Jmoaetc5021-59-89 05:54:00Identifier 87903- 6 Result Time 2019-03-01 05:54:00Unknown Test Item Value Reference Range Comments Unknown (test code = 2028-9) 29 mmol/L Unknown 22-32 F Ordering Physician UnknownLaboratory Trwwgsq8966-36-44 05:54:00Identifier 19080- 6 Result Time 2019-03-01 05:54:00Unknown Test Item Value Reference Range Comments Unknown (test code = 94262-9) 8.7 mg/dL Unknown 8.6-10.3 F Ordering Physician UnknownLaboratory Tvtrydl5762-76-76 05:54:00Identifier 34710- 6 Result Time 2019-03-01 05:54:00Unknown Test Item Value Reference Range Comments Unknown (test code = 3094-0) 18 mg/dL Unknown 6-24 F Ordering Physician UnknownLaboratory Yczknts9151-15-26 05:54:00Identifier 88148- 6 Result Time 2019-03-01 05:54:00Unknown Test Item Value Reference Range Comments Unknown (test code = 3097-3) 28.1 Unknown 8-20 F Ordering Physician UnknownLaboratory Oitppmj9475-49-57 05:54:00Identifier 86059- 6 Result Time 2019-03-01 05:54:00Unknown Test Item Value Reference Range Comments Unknown (test code = 31262-7) 5 mmol/L Unknown 2-11 F Ordering Physician UnknownLaboratory Nhxioru1729-23-27 08:50:00Identifier 17064- 6 Result Time 2019-02-27 08:50:00Unknown Test Item Value Reference Range Comments Unknown (test code = 30519-2) 5.2 10^3/uL Unknown 3.5-10.8 F Ordering Physician UnknownLaboratory Fzkiaci3353-18-64 08:50:00Identifier 99442- 6 Result Time 2019-02-27 08:50:00Unknown Test Item Value Reference Range Comments Unknown (test code = 788-0) 15 % Unknown 10-15 F Ordering Physician UnknownLaboratory Kbdrwib2367-45-96 08:50:00Identifier 34662- 6 Result Time 2019-02-27 08:50:00Unknown Test Item Value Reference Range Comments Unknown (test code = 789-8) 3.43 10^6 /uL Unknown 4.18-5.48 F Ordering Physician UnknownLaboratory Wtfmktq7016-60-97 08:50:00Identifier 74086- 6 Result Time 2019-02-27 08:50:00Unknown Test Item Value Reference Range Comments Unknown (test code = 777-3) 144 10^3/uL Unknown 150-450 F Ordering Physician UnknownLaboratory Khnezhv7101-62-79 08:50:00Identifier 53891- 6 Result Time 2019-02-27 08:50:00Unknown Test Item Value Reference Range Comments Unknown (test code = 01034-4) 7.9 fL Unknown 7.4-10.4 F Ordering Physician UnknownLaboratory Rirpthb7539-33-34 08:50:00Identifier 82548- 6 Result Time 2019-02-27 08:50:00Unknown Test Item Value Reference Range Comments Unknown (test code = 787-2) 97 fL Unknown 80-94 F Ordering Physician UnknownLaboratory Pewgpzn9739-08-38 08:50:00Identifier 31156- 6 Result Time 2019-02-27 08:50:00Unknown Test Item Value Reference Range Comments Unknown (test code = 786-4) 34 g/dL Unknown 31-36 F Ordering Physician UnknownLaboratory Rykfeho1505-80-13 08:50:00Identifier 00229- 6 Result Time 2019-02-27 08:50:00Unknown Test Item Value Reference Range Comments Unknown (test code = 785-6) 33 pg Unknown 27-31 F Ordering Physician UnknownLaboratory Chlhisj8475-32-23 08:50:00Identifier 33800- 6 Result Time 2019-02-27 08:50:00Unknown Test Item Value Reference Range Comments Unknown (test code = 718-7) 11.4 g/dL Unknown 14.0-18.0 F Ordering Physician UnknownLaboratory Fjugxtl4781-33-14 08:50:00Identifier 42429- 6 Result Time 2019-02-27 08:50:00Unknown Test Item Value Reference Range Comments Unknown (test code = 4544-3) 33 % Unknown 42-52 F Ordering Physician UnknownLaboratory Naqpfti9516-18-20 05:21:00Identifier 07642- 6 Result Time 2019-02-26 05:21:00Unknown Test Item Value Reference Range Comments Unknown (test code = 2885-2) 6.1 g/dL Unknown 6.4-8.9 F Ordering Physician UnknownLaboratory Lrunexj4582-46-87 05:21:00Identifier 24227- 6 Result Time 2019-02-26 05:21:00Unknown Test Item Value Reference Range Comments Unknown (test code = 1975-2) 0.90 mg/dL Unknown 0.2-1.0 F Ordering Physician UnknownLaboratory Whuweil3696-27-09 05:21:00Identifier 77716- 6 Result Time 2019-02-26 05:21:00Unknown Test Item Value Reference Range Comments Unknown (test code = 2777-1) 3.7 mg/dL Unknown 2.5-5.0 F Ordering Physician UnknownLaboratory Eaewsvp2012-89-62 05:21:00Identifier 02069- 6 Result Time 2019-02-26 05:21:00Unknown Test Item Value Reference Range Comments Unknown (test code = 1971-1) 0.6 mg/dL Unknown 0.3-1.0 F Ordering Physician UnknownLaboratory Dycghvv9705-68-37 05:21:00Identifier 76091- 6 Result Time 2019-02-26 05:21:00Unknown Test Item Value Reference Range Comments Unknown (test code = NullTestCode) 2.5 g/dL Unknown 2-4 F Ordering Physician UnknownLaboratory Zxabaht0334-32-91 05:21:00Identifier 26652- 6 Result Time 2019-02-26 05:21:00Unknown Test Item Value Reference Range Comments Unknown (test code = 1968-7) 0.30 mg/dL Unknown 0.03-0.18 F Ordering Physician UnknownLaboratory Ipwoesv5081-55-62 05:21:00Identifier 49179- 6 Result Time 2019-02-26 05:21:00Unknown Test Item Value Reference Range Comments Unknown (test code = 1920-8) 112 U/L Unknown 13-39 F Ordering Physician UnknownLaboratory Hsceidk7422-79-03 05:21:00Identifier 68831- 6 Result Time 2019-02-26 05:21:00Unknown Test Item Value Reference Range Comments Unknown (test code = 6768-6) 342 U/L Unknown 34-104 F Ordering Physician UnknownLaboratory Vgczchg4895-84-92 05:21:00Identifier 27914- 6 Result Time 2019-02-26 05:21:00Unknown Test Item Value Reference Range Comments Unknown (test code = 1759-0) 1.4 Unknown 1-3 F Ordering Physician UnknownLaboratory Xebdgep5098-45-46 05:21:00Identifier 76001- 6 Result Time 2019-02-26 05:21:00Unknown Test Item Value Reference Range Comments Unknown (test code = 12829-6) 3.6 g/dL Unknown 3.2-5.2 F Ordering Physician UnknownLaboratory Okdgwel8735-28-27 05:21:00Identifier 29263- 6 Result Time 2019-02-26 05:21:00Unknown Test Item Value Reference Range Comments Unknown (test code = 1742-6) 133 U/L Unknown 7-52 F Ordering Physician UnknownLaboratory Mypqkzi4839-47-26 05:21:00Identifier 61342- 6 Result Time 2019-02-26 05:21:00Unknown Test Item Value Reference Range Comments Unknown (test code = 38439-2) 0.1 Unknown Unknown F Ordering Physician UnknownLaboratory Bnqjigt4473-63-42 05:21:00Identifier 80648- 6 Result Time 2019-02-26 05:21:00Unknown Test Item Value Reference Range Comments Unknown (test code = 771-6) 0.0 10^3/ul Unknown Unknown F Ordering Physician UnknownLaboratory Vkuhfjo4375-27-83 05:21:00Identifier 15544- 6 Result Time 2019-02-26 05:21:00Unknown Test Item Value Reference Range Comments Unknown (test code = 770-8) 62.9 % Unknown Unknown F Ordering Physician UnknownLaboratory Hilvtlh4760-56-16 05:21:00Identifier 26607- 6 Result Time 2019-02-26 05:21:00Unknown Test Item Value Reference Range Comments Unknown (test code = 5905-5) 16.4 % Unknown Unknown F Ordering Physician UnknownLaboratory Niscvjg7246-61-83 05:21:00Identifier 15389- 6 Result Time 2019-02-26 05:21:00Unknown Test Item Value Reference Range Comments Unknown (test code = 736-9) 16.5 % Unknown Unknown F Ordering Physician UnknownLaboratory Uvjkweh2975-06-26 05:21:00Identifier 90379- 6 Result Time 2019-02-26 05:21:00Unknown Test Item Value Reference Range Comments Unknown (test code = 713-8) 3.4 % Unknown Unknown F Ordering Physician UnknownLaboratory Qsbrcrq5151-79-81 05:21:00Identifier 57635- 6 Result Time 2019-02-26 05:21:00Unknown Test Item Value Reference Range Comments Unknown (test code = 706-2) 0.8 % Unknown Unknown F Ordering Physician UnknownLaboratory Ytbkowo0026-72-66 05:21:00Identifier 55622- 6 Result Time 2019-02-26 05:21:00Unknown Test Item Value Reference Range Comments Unknown (test code = OQB6724) 2.6 10^3/ul Unknown 1.5-7.7 F Ordering Physician UnknownLaboratory Xxqpipw5473-86-43 05:21:00Identifier 47299- 6 Result Time 2019-02-26 05:21:00Unknown Test Item Value Reference Range Comments Unknown (test code = 742-7) 0.7 10^3/ul Unknown 0-0.8 F Ordering Physician UnknownLaboratory Mqkfnzn2608-15-93 05:21:00Identifier 03455- 6 Result Time 2019-02-26 05:21:00Unknown Test Item Value Reference Range Comments Unknown (test code = 731-0) 0.7 10^3/ul Unknown 1.0-4.8 F Ordering Physician UnknownLaboratory Auvmekx7015-81-60 05:21:00Identifier 19053- 6 Result Time 2019-02-26 05:21:00Unknown Test Item Value Reference Range Comments Unknown (test code = 711-2) 0.1 10^3/ul Unknown 0-0.6 F Ordering Physician UnknownLaboratory Fihbgnm6862-75-94 05:21:00Identifier 22011- 6 Result Time 2019-02-26 05:21:00Unknown Test Item Value Reference Range Comments Unknown (test code = 704-7) 0.0 10^3/ul Unknown 0-0.2 F Ordering Physician UnknownLaboratory Rjqsswt9846-60-77 18:33:00Identifier 34882- 6 Result Time 2019-02-23 18:33:00Unknown Test Item Value Reference Range Comments Unknown (test code = 5643-2) 236 mg/dL Unknown 0-10 F Ordering Physician UnknownLaboratory Jfiywut3688-27-13 18:33:00Identifier 23364- 6 Result Time 2019-02-23 18:33:00Unknown Test Item Value Reference Range Comments Unknown (test code = 96870-2) 0.89 Unknown 0.82-1.09 F Ordering Physician UnknownLaboratory Qvvqmag5142-96-05 18:33:00Identifier 85855- 6 Result Time 2019-02-23 18:33:00Unknown Test Item Value Reference Range Comments Unknown (test code = 04544-9) 31.2 seconds Unknown 26.0-38.0 F Ordering Physician UnknownLaboratory Tvewkux7297-69-69 18:33:00Identifier 79061- 6 Result Time 2019-02-23 18:33:00Unknown Test Item Value Reference Range Comments Unknown (test code = 2524-7) 1.6 mmol/L Unknown 0.5-2.0 F Ordering Physician UnknownLaboratory Ngyzpxb5196-97-41 18:32:00Identifier 16144- 6 Result Time 2019-02-23 18:32:00Unknown Test Item Value Reference Range Comments Unknown (test code = 91945-6) 0.01 s/c Unknown Unknown F Ordering Physician Unknown
--- OUTSIDE RECORDS SUMMARY | 2019-10-05 20:54 | XMS REPORT ---
:1960 Author Organization [facility] Care Team Providers Name Role Phone Unavailable [...] Result Comments Laboratory Studies 2019-03-01 05:54:00 Identifier [id number] Result Time Unknown 2019-03-01 05:54:00 Test Item Value Reference Range Comments Unknown (test code = 2951-2) 136 mmol/L Unknown 135-145 F Ordering Physician UnknownLaboratory Limbgsv9566-14-67 05:54:00Identifier 27045- 6 Result Time 2019-03-01 05:54:00Unknown Test Item Value Reference Range Comments Unknown (test code = 2823-3) 4.4 mmol/L Unknown 3.5-5.0 F Ordering Physician UnknownLaboratory Kwkqmhv2401-69-34 05:54:00Identifier 67218- 6 Result Time 2019-03-01 05:54:00Unknown Test Item Value Reference Range Comments Unknown (test code = 57847-1) 2.5 mg/dL Unknown 1.9-2.7 F Ordering Physician UnknownLaboratory Xqrundj2267-85-98 05:54:00Identifier 58875- 6 Result Time 2019-03-01 05:54:00Unknown Test Item Value Reference Range Comments Unknown (test code = 2345-7) 95 mg/dL Unknown 70-100 F Ordering Physician UnknownLaboratory Dpuesox8289-47-83 05:54:00Identifier 30470- 6 Result Time 2019-03-01 05:54:00Unknown Test Item Value Reference Range Comments Unknown (test code = 53963-8) 128.5 Unknown Unknown F Ordering Physician UnknownLaboratory Edxuize4022-11-38 05:54:00Identifier 86515- 6 Result Time 2019-03-01 05:54:00Unknown Test Item Value Reference Range Comments Unknown (test code = NullTestCode) 155.4 Unknown Unknown F Ordering Physician UnknownLaboratory Eyequmj4338-53-75 05:54:00Identifier 58542- 6 Result Time 2019-03-01 05:54:00Unknown Test Item Value Reference Range Comments Unknown (test code = 2160-0) 0.64 mg/dL Unknown 0.67-1.17 F Ordering Physician UnknownLaboratory Rfeeneg1580-76-26 05:54:00Identifier 81067- 6 Result Time 2019-03-01 05:54:00Unknown Test Item Value Reference Range Comments Unknown (test code = 2075-0) 102 mmol/L Unknown 101-111 F Ordering Physician UnknownLaboratory Kmbbfpa5573-77-26 05:54:00Identifier 06054- 6 Result Time 2019-03-01 05:54:00Unknown Test Item Value Reference Range Comments Unknown (test code = 2028-9) 29 mmol/L Unknown 22-32 F Ordering Physician UnknownLaboratory Modlwac1650-15-98 05:54:00Identifier 59225- 6 Result Time 2019-03-01 05:54:00Unknown Test Item Value Reference Range Comments Unknown (test code = 28287-4) 8.7 mg/dL Unknown 8.6-10.3 F Ordering Physician UnknownLaboratory Eovlmrs0545-26-18 05:54:00Identifier 94893- 6 Result Time 2019-03-01 05:54:00Unknown Test Item Value Reference Range Comments Unknown (test code = 3094-0) 18 mg/dL Unknown 6-24 F Ordering Physician UnknownLaboratory Xmeizmy4754-08-80 05:54:00Identifier 51919- 6 Result Time 2019-03-01 05:54:00Unknown Test Item Value Reference Range Comments Unknown (test code = 3097-3) 28.1 Unknown 8-20 F Ordering Physician UnknownLaboratory Cqgibip5016-97-06 05:54:00Identifier 82517- 6 Result Time 2019-03-01 05:54:00Unknown Test Item Value Reference Range Comments Unknown (test code = 79260-5) 5 mmol/L Unknown 2-11 F Ordering Physician UnknownLaboratory Xjqxyjg5025-11-32 08:50:00Identifier 91829- 6 Result Time 2019-02-27 08:50:00Unknown Test Item Value Reference Range Comments Unknown (test code = 38981-6) 5.2 10^3/uL Unknown 3.5-10.8 F Ordering Physician UnknownLaboratory Namwidm3539-60-64 08:50:00Identifier 21235- 6 Result Time 2019-02-27 08:50:00Unknown Test Item Value Reference Range Comments Unknown (test code = 788-0) 15 % Unknown 10-15 F Ordering Physician UnknownLaboratory Vbsyknb2190-38-60 08:50:00Identifier 75701- 6 Result Time 2019-02-27 08:50:00Unknown Test Item Value Reference Range Comments Unknown (test code = 789-8) 3.43 10^6 /uL Unknown 4.18-5.48 F Ordering Physician UnknownLaboratory Csvnzwp3980-29-56 08:50:00Identifier 15636- 6 Result Time 2019-02-27 08:50:00Unknown Test Item Value Reference Range Comments Unknown (test code = 777-3) 144 10^3/uL Unknown 150-450 F Ordering Physician UnknownLaboratory Fzyreyq0454-89-73 08:50:00Identifier 76437- 6 Result Time 2019-02-27 08:50:00Unknown Test Item Value Reference Range Comments Unknown (test code = 16964-3) 7.9 fL Unknown 7.4-10.4 F Ordering Physician UnknownLaboratory Czeoqtv1965-11-84 08:50:00Identifier 84782- 6 Result Time 2019-02-27 08:50:00Unknown Test Item Value Reference Range Comments Unknown (test code = 787-2) 97 fL Unknown 80-94 F Ordering Physician UnknownLaboratory Hnrfigo8838-15-47 08:50:00Identifier 38502- 6 Result Time 2019-02-27 08:50:00Unknown Test Item Value Reference Range Comments Unknown (test code = 786-4) 34 g/dL Unknown 31-36 F Ordering Physician UnknownLaboratory Rhxrthy3524-75-36 08:50:00Identifier 74249- 6 Result Time 2019-02-27 08:50:00Unknown Test Item Value Reference Range Comments Unknown (test code = 785-6) 33 pg Unknown 27-31 F Ordering Physician UnknownLaboratory Llnllzv8637-03-07 08:50:00Identifier 16277- 6 Result Time 2019-02-27 08:50:00Unknown Test Item Value Reference Range Comments Unknown (test code = 718-7) 11.4 g/dL Unknown 14.0-18.0 F Ordering Physician UnknownLaboratory Owprvov2149-28-42 08:50:00Identifier 19623- 6 Result Time 2019-02-27 08:50:00Unknown Test Item Value Reference Range Comments Unknown (test code = 4544-3) 33 % Unknown 42-52 F Ordering Physician UnknownLaboratory Plcmcda7796-95-63 05:21:00Identifier 54605- 6 Result Time 2019-02-26 05:21:00Unknown Test Item Value Reference Range Comments Unknown (test code = 2885-2) 6.1 g/dL Unknown 6.4-8.9 F Ordering Physician UnknownLaboratory Qhllhia0678-50-17 05:21:00Identifier 75338- 6 Result Time 2019-02-26 05:21:00Unknown Test Item Value Reference Range Comments Unknown (test code = 1975-2) 0.90 mg/dL Unknown 0.2-1.0 F Ordering Physician UnknownLaboratory Blvsjkk1027-09-56 05:21:00Identifier 24710- 6 Result Time 2019-02-26 05:21:00Unknown Test Item Value Reference Range Comments Unknown (test code = 2777-1) 3.7 mg/dL Unknown 2.5-5.0 F Ordering Physician UnknownLaboratory Mbualwg2530-24-71 05:21:00Identifier 49169- 6 Result Time 2019-02-26 05:21:00Unknown Test Item Value Reference Range Comments Unknown (test code = 1971-1) 0.6 mg/dL Unknown 0.3-1.0 F Ordering Physician UnknownLaboratory Eqqrqwo2628-54-07 05:21:00Identifier 08564- 6 Result Time 2019-02-26 05:21:00Unknown Test Item Value Reference Range Comments Unknown (test code = NullTestCode) 2.5 g/dL Unknown 2-4 F Ordering Physician UnknownLaboratory Sxjpvca9727-55-18 05:21:00Identifier 43530- 6 Result Time 2019-02-26 05:21:00Unknown Test Item Value Reference Range Comments Unknown (test code = 1968-7) 0.30 mg/dL Unknown 0.03-0.18 F Ordering Physician UnknownLaboratory Gavmrit5034-46-00 05:21:00Identifier 69568- 6 Result Time 2019-02-26 05:21:00Unknown Test Item Value Reference Range Comments Unknown (test code = 1920-8) 112 U/L Unknown 13-39 F Ordering Physician UnknownLaboratory Uychqjn4971-84-88 05:21:00Identifier 59514- 6 Result Time 2019-02-26 05:21:00Unknown Test Item Value Reference Range Comments Unknown (test code = 6768-6) 342 U/L Unknown 34-104 F Ordering Physician UnknownLaboratory Eagionm9622-61-79 05:21:00Identifier 49478- 6 Result Time 2019-02-26 05:21:00Unknown Test Item Value Reference Range Comments Unknown (test code = 1759-0) 1.4 Unknown 1-3 F Ordering Physician UnknownLaboratory Cwmdmkq7947-15-18 05:21:00Identifier 84675- 6 Result Time 2019-02-26 05:21:00Unknown Test Item Value Reference Range Comments Unknown (test code = 11900-4) 3.6 g/dL Unknown 3.2-5.2 F Ordering Physician UnknownLaboratory Mgzxhvm4672-55-43 05:21:00Identifier 74449- 6 Result Time 2019-02-26 05:21:00Unknown Test Item Value Reference Range Comments Unknown (test code = 1742-6) 133 U/L Unknown 7-52 F Ordering Physician UnknownLaboratory Vbamiku6425-91-47 05:21:00Identifier 20286- 6 Result Time 2019-02-26 05:21:00Unknown Test Item Value Reference Range Comments Unknown (test code = 28628-1) 0.1 Unknown Unknown F Ordering Physician UnknownLaboratory Dlzfold9957-14-01 05:21:00Identifier 58231- 6 Result Time 2019-02-26 05:21:00Unknown Test Item Value Reference Range Comments Unknown (test code = 771-6) 0.0 10^3/ul Unknown Unknown F Ordering Physician UnknownLaboratory Jdgvizc0842-06-67 05:21:00Identifier 94009- 6 Result Time 2019-02-26 05:21:00Unknown Test Item Value Reference Range Comments Unknown (test code = 770-8) 62.9 % Unknown Unknown F Ordering Physician UnknownLaboratory Eacalzx6814-80-86 05:21:00Identifier 07572- 6 Result Time 2019-02-26 05:21:00Unknown Test Item Value Reference Range Comments Unknown (test code = 5905-5) 16.4 % Unknown Unknown F Ordering Physician UnknownLaboratory Miezkqz1587-89-48 05:21:00Identifier 18713- 6 Result Time 2019-02-26 05:21:00Unknown Test Item Value Reference Range Comments Unknown (test code = 736-9) 16.5 % Unknown Unknown F Ordering Physician UnknownLaboratory Jbyupjh3381-23-65 05:21:00Identifier 56202- 6 Result Time 2019-02-26 05:21:00Unknown Test Item Value Reference Range Comments Unknown (test code = 713-8) 3.4 % Unknown Unknown F Ordering Physician UnknownLaboratory Yrmvflm1078-86-30 05:21:00Identifier 46708- 6 Result Time 2019-02-26 05:21:00Unknown Test Item Value Reference Range Comments Unknown (test code = 706-2) 0.8 % Unknown Unknown F Ordering Physician UnknownLaboratory Mlycqvd8738-13-57 05:21:00Identifier 06560- 6 Result Time 2019-02-26 05:21:00Unknown Test Item Value Reference Range Comments Unknown (test code = REK3968) 2.6 10^3/ul Unknown 1.5-7.7 F Ordering Physician UnknownLaboratory Ecnsjqd8538-47-64 05:21:00Identifier 35850- 6 Result Time 2019-02-26 05:21:00Unknown Test Item Value Reference Range Comments Unknown (test code = 742-7) 0.7 10^3/ul Unknown 0-0.8 F Ordering Physician UnknownLaboratory Reqlqfy8264-02-58 05:21:00Identifier 18349- 6 Result Time 2019-02-26 05:21:00Unknown Test Item Value Reference Range Comments Unknown (test code = 731-0) 0.7 10^3/ul Unknown 1.0-4.8 F Ordering Physician UnknownLaboratory Olrjmfh4053-63-20 05:21:00Identifier 47469- 6 Result Time 2019-02-26 05:21:00Unknown Test Item Value Reference Range Comments Unknown (test code = 711-2) 0.1 10^3/ul Unknown 0-0.6 F Ordering Physician UnknownLaboratory Iqhrurm1779-31-34 05:21:00Identifier 08199- 6 Result Time 2019-02-26 05:21:00Unknown Test Item Value Reference Range Comments Unknown (test code = 704-7) 0.0 10^3/ul Unknown 0-0.2 F Ordering Physician UnknownLaboratory Bxgjeuw8989-88-09 18:33:00Identifier 51509- 6 Result Time 2019-02-23 18:33:00Unknown Test Item Value Reference Range Comments Unknown (test code = 5643-2) 236 mg/dL Unknown 0-10 F Ordering Physician UnknownLaboratory Wszbccm8212-53-39 18:33:00Identifier 94675- 6 Result Time 2019-02-23 18:33:00Unknown Test Item Value Reference Range Comments Unknown (test code = 92143-0) 0.89 Unknown 0.82-1.09 F Ordering Physician UnknownLaboratory Xacynve3846-43-00 18:33:00Identifier 07818- 6 Result Time 2019-02-23 18:33:00Unknown Test Item Value Reference Range Comments Unknown (test code = 66222-6) 31.2 seconds Unknown 26.0-38.0 F Ordering Physician UnknownLaboratory Bxnplpw3265-95-74 18:33:00Identifier 15733- 6 Result Time 2019-02-23 18:33:00Unknown Test Item Value Reference Range Comments Unknown (test code = 2524-7) 1.6 mmol/L Unknown 0.5-2.0 F Ordering Physician UnknownLaboratory Pkqujhj4470-89-44 18:32:00Identifier 39590- 6 Result Time 2019-02-23 18:32:00Unknown Test Item Value Reference Range Comments Unknown (test code = 58493-7) 0.01 s/c Unknown Unknown F Ordering Physician Unknown
--- OUTSIDE RECORDS SUMMARY | 2019-10-05 20:54 | XMS REPORT ---
:1960 Author Organization [facility] Care Team Providers Name Role Phone Unavailable [...] Result Comments Laboratory Studies 2019-03-01 05:54:00 Identifier [id number] Result Time Unknown 2019-03-01 05:54:00 Test Item Value Reference Range Comments Unknown (test code = 2951-2) 136 mmol/L Unknown 135-145 F Ordering Physician UnknownLaboratory Vbytebu5455-73-46 05:54:00Identifier [id number] 6 Result Time 2019-03-01 05:54:00Unknown Test Item Value Reference Range Comments Unknown (test code = 2823-3) 4.4 mmol/L Unknown 3.5-5.0 F Ordering Physician UnknownLaboratory Zhxeyzj7978-27-31 05:54:00Identifier [id number]- 6 Result Time 2019-03-01 05:54:00Unknown Test Item Value Reference Range Comments Unknown (test code = 73272-3) 2.5 mg/dL Unknown 1.9-2.7 F Ordering Physician UnknownLaboratory Wfbskkw3277-20-93 05:54:00Identifier [id number]- 6 Result Time 2019-03-01 05:54:00Unknown Test Item Value Reference Range Comments Unknown (test code = 2345-7) 95 mg/dL Unknown 70-100 F Ordering Physician UnknownLaboratory Cjafunm2426-77-99 05:54:00Identifier [id number]- 6 Result Time 2019-03-01 05:54:00Unknown Test Item Value Reference Range Comments Unknown (test code = 22093-9) 128.5 Unknown Unknown F Ordering Physician UnknownLaboratory Dgmzeor7162-97-90 05:54:00Identifier 18506- 6 Result Time 2019-03-01 05:54:00Unknown Test Item Value Reference Range Comments Unknown (test code = NullTestCode) 155.4 Unknown Unknown F Ordering Physician UnknownLaboratory Qfugktz6161-07-92 05:54:00Identifier [id number]- 6 Result Time 2019-03-01 05:54:00Unknown Test Item Value Reference Range Comments Unknown (test code = 2160-0) 0.64 mg/dL Unknown 0.67-1.17 F Ordering Physician UnknownLaboratory Ioffial7106-90-48 05:54:00Identifier [id number]- 6 Result Time 2019-03-01 05:54:00Unknown Test Item Value Reference Range Comments Unknown (test code = 2075-0) 102 mmol/L Unknown 101-111 F Ordering Physician UnknownLaboratory Pglgaeu6115-19-69 05:54:00Identifier [id number]- 6 Result Time 2019-03-01 05:54:00Unknown Test Item Value Reference Range Comments Unknown (test code = 2028-9) 29 mmol/L Unknown 22-32 F Ordering Physician UnknownLaboratory Vehesob2848-51-96 05:54:00Identifier [id number]- 6 Result Time 2019-03-01 05:54:00Unknown Test Item Value Reference Range Comments Unknown (test code = 49073-2) 8.7 mg/dL Unknown 8.6-10.3 F Ordering Physician UnknownLaboratory Eyaajjh1732-92-81 05:54:00Identifier 73335- 6 Result Time 2019-03-01 05:54:00Unknown Test Item Value Reference Range Comments Unknown (test code = 3094-0) 18 mg/dL Unknown 6-24 F Ordering Physician UnknownLaboratory Oopiuvc2630-02-45 05:54:00Identifier 16905- 6 Result Time 2019-03-01 05:54:00Unknown Test Item Value Reference Range Comments Unknown (test code = 3097-3) 28.1 Unknown 8-20 F Ordering Physician UnknownLaboratory Kovadzl5039-54-16 05:54:00Identifier [id number]- 6 Result Time 2019-03-01 05:54:00Unknown Test Item Value Reference Range Comments Unknown (test code = 42234-2) 5 mmol/L Unknown 2-11 F Ordering Physician UnknownLaboratory Pmtvctx5593-50-99 08:50:00Identifier 01895- 6 Result Time 2019-02-27 08:50:00Unknown Test Item Value Reference Range Comments Unknown (test code = 46238-2) 5.2 10^3/uL Unknown 3.5-10.8 F Ordering Physician UnknownLaboratory Seoynre1713-83-01 08:50:00Identifier [id number]- 6 Result Time 2019-02-27 08:50:00Unknown Test Item Value Reference Range Comments Unknown (test code = 788-0) 15 % Unknown 10-15 F Ordering Physician UnknownLaboratory Wyavsnu9087-22-24 08:50:00Identifier 08247- 6 Result Time 2019-02-27 08:50:00Unknown Test Item Value Reference Range Comments Unknown (test code = 789-8) 3.43 10^6 /uL Unknown 4.18-5.48 F Ordering Physician UnknownLaboratory Vhqgcdi4798-48-20 08:50:00Identifier 33005- 6 Result Time 2019-02-27 08:50:00Unknown Test Item Value Reference Range Comments Unknown (test code = 777-3) 144 10^3/uL Unknown 150-450 F Ordering Physician UnknownLaboratory Nhmjhag7226-07-44 08:50:00Identifier [id number]- 6 Result Time 2019-02-27 08:50:00Unknown Test Item Value Reference Range Comments Unknown (test code = 29228-7) 7.9 fL Unknown 7.4-10.4 F Ordering Physician UnknownLaboratory Obvhxxo8831-89-13 08:50:00Identifier [id number]- 6 Result Time 2019-02-27 08:50:00Unknown Test Item Value Reference Range Comments Unknown (test code = 787-2) 97 fL Unknown 80-94 F Ordering Physician UnknownLaboratory Jvlryfz3719-33-87 08:50:00Identifier 12401- 6 Result Time 2019-02-27 08:50:00Unknown Test Item Value Reference Range Comments Unknown (test code = 786-4) 34 g/dL Unknown 31-36 F Ordering Physician UnknownLaboratory Gfuclhp7684-98-79 08:50:00Identifier 85468- 6 Result Time 2019-02-27 08:50:00Unknown Test Item Value Reference Range Comments Unknown (test code = 785-6) 33 pg Unknown 27-31 F Ordering Physician UnknownLaboratory Rtxbtbf6776-36-14 08:50:00Identifier 04893- 6 Result Time 2019-02-27 08:50:00Unknown Test Item Value Reference Range Comments Unknown (test code = 718-7) 11.4 g/dL Unknown 14.0-18.0 F Ordering Physician UnknownLaboratory Lmrilpd0003-63-67 08:50:00Identifier 55823- 6 Result Time 2019-02-27 08:50:00Unknown Test Item Value Reference Range Comments Unknown (test code = 4544-3) 33 % Unknown 42-52 F Ordering Physician UnknownLaboratory Jwxswev5504-82-32 05:21:00Identifier 99034- 6 Result Time 2019-02-26 05:21:00Unknown Test Item Value Reference Range Comments Unknown (test code = 2885-2) 6.1 g/dL Unknown 6.4-8.9 F Ordering Physician UnknownLaboratory Upbjowd9824-92-10 05:21:00Identifier 10026- 6 Result Time 2019-02-26 05:21:00Unknown Test Item Value Reference Range Comments Unknown (test code = 1975-2) 0.90 mg/dL Unknown 0.2-1.0 F Ordering Physician UnknownLaboratory Hdjqtlj4685-89-59 05:21:00Identifier 00898- 6 Result Time 2019-02-26 05:21:00Unknown Test Item Value Reference Range Comments Unknown (test code = 2777-1) 3.7 mg/dL Unknown 2.5-5.0 F Ordering Physician UnknownLaboratory Bpshahn8150-48-56 05:21:00Identifier 03464- 6 Result Time 2019-02-26 05:21:00Unknown Test Item Value Reference Range Comments Unknown (test code = 1971-1) 0.6 mg/dL Unknown 0.3-1.0 F Ordering Physician UnknownLaboratory Lejcoop6598-93-50 05:21:00Identifier 04304- 6 Result Time 2019-02-26 05:21:00Unknown Test Item Value Reference Range Comments Unknown (test code = NullTestCode) 2.5 g/dL Unknown 2-4 F Ordering Physician UnknownLaboratory Dqkpjsz8471-24-80 05:21:00Identifier 33298- 6 Result Time 2019-02-26 05:21:00Unknown Test Item Value Reference Range Comments Unknown (test code = 1968-7) 0.30 mg/dL Unknown 0.03-0.18 F Ordering Physician UnknownLaboratory Thxsxlu0152-62-19 05:21:00Identifier 61446- 6 Result Time 2019-02-26 05:21:00Unknown Test Item Value Reference Range Comments Unknown (test code = 1920-8) 112 U/L Unknown 13-39 F Ordering Physician UnknownLaboratory Wdrncyv6578-75-49 05:21:00Identifier 60443- 6 Result Time 2019-02-26 05:21:00Unknown Test Item Value Reference Range Comments Unknown (test code = 6768-6) 342 U/L Unknown 34-104 F Ordering Physician UnknownLaboratory Ppqzfmn4127-62-53 05:21:00Identifier 84448- 6 Result Time 2019-02-26 05:21:00Unknown Test Item Value Reference Range Comments Unknown (test code = 1759-0) 1.4 Unknown 1-3 F Ordering Physician UnknownLaboratory Ppkswfk3703-75-48 05:21:00Identifier 98401- 6 Result Time 2019-02-26 05:21:00Unknown Test Item Value Reference Range Comments Unknown (test code = 01733-7) 3.6 g/dL Unknown 3.2-5.2 F Ordering Physician UnknownLaboratory Sueylug6876-99-34 05:21:00Identifier 97797- 6 Result Time 2019-02-26 05:21:00Unknown Test Item Value Reference Range Comments Unknown (test code = 1742-6) 133 U/L Unknown 7-52 F Ordering Physician UnknownLaboratory Qhilopr2212-89-39 05:21:00Identifier 15189- 6 Result Time 2019-02-26 05:21:00Unknown Test Item Value Reference Range Comments Unknown (test code = 39800-7) 0.1 Unknown Unknown F Ordering Physician UnknownLaboratory Wvtsdgi1847-13-99 05:21:00Identifier 12942- 6 Result Time 2019-02-26 05:21:00Unknown Test Item Value Reference Range Comments Unknown (test code = 771-6) 0.0 10^3/ul Unknown Unknown F Ordering Physician UnknownLaboratory Hauyiex4536-29-12 05:21:00Identifier 66526- 6 Result Time 2019-02-26 05:21:00Unknown Test Item Value Reference Range Comments Unknown (test code = 770-8) 62.9 % Unknown Unknown F Ordering Physician UnknownLaboratory Kdlcsle1203-88-91 05:21:00Identifier 30926- 6 Result Time 2019-02-26 05:21:00Unknown Test Item Value Reference Range Comments Unknown (test code = 5905-5) 16.4 % Unknown Unknown F Ordering Physician UnknownLaboratory Zxgnbpg7969-12-60 05:21:00Identifier 43381- 6 Result Time 2019-02-26 05:21:00Unknown Test Item Value Reference Range Comments Unknown (test code = 736-9) 16.5 % Unknown Unknown F Ordering Physician UnknownLaboratory Ifxoscm3425-19-70 05:21:00Identifier 86667- 6 Result Time 2019-02-26 05:21:00Unknown Test Item Value Reference Range Comments Unknown (test code = 713-8) 3.4 % Unknown Unknown F Ordering Physician UnknownLaboratory Xjewchk1866-43-14 05:21:00Identifier 10552- 6 Result Time 2019-02-26 05:21:00Unknown Test Item Value Reference Range Comments Unknown (test code = 706-2) 0.8 % Unknown Unknown F Ordering Physician UnknownLaboratory Vwjflvt7848-95-33 05:21:00Identifier 73514- 6 Result Time 2019-02-26 05:21:00Unknown Test Item Value Reference Range Comments Unknown (test code = MLP7929) 2.6 10^3/ul Unknown 1.5-7.7 F Ordering Physician UnknownLaboratory Azptuba6255-89-96 05:21:00Identifier [id number]- 6 Result Time 2019-02-26 05:21:00Unknown Test Item Value Reference Range Comments Unknown (test code = 742-7) 0.7 10^3/ul Unknown 0-0.8 F Ordering Physician UnknownLaboratory Cuwmkxi3032-33-03 05:21:00Identifier 52432- 6 Result Time 2019-02-26 05:21:00Unknown Test Item Value Reference Range Comments Unknown (test code = 731-0) 0.7 10^3/ul Unknown 1.0-4.8 F Ordering Physician UnknownLaboratory Uonccbk8094-99-07 05:21:00Identifier 16241- 6 Result Time 2019-02-26 05:21:00Unknown Test Item Value Reference Range Comments Unknown (test code = 711-2) 0.1 10^3/ul Unknown 0-0.6 F Ordering Physician UnknownLaboratory Klrjkxo3981-43-26 05:21:00Identifier 87030- 6 Result Time 2019-02-26 05:21:00Unknown Test Item Value Reference Range Comments Unknown (test code = 704-7) 0.0 10^3/ul Unknown 0-0.2 F Ordering Physician UnknownLaboratory Aonqikg6285-47-60 18:33:00Identifier 42586- 6 Result Time 2019-02-23 18:33:00Unknown Test Item Value Reference Range Comments Unknown (test code = 5643-2) 236 mg/dL Unknown 0-10 F Ordering Physician UnknownLaboratory Tgwtkls6967-83-19 18:33:00Identifier 31186- 6 Result Time 2019-02-23 18:33:00Unknown Test Item Value Reference Range Comments Unknown (test code = 37172-1) 0.89 Unknown 0.82-1.09 F Ordering Physician UnknownLaboratory Jewxeat1517-65-86 18:33:00Identifier 16602- 6 Result Time 2019-02-23 18:33:00Unknown Test Item Value Reference Range Comments Unknown (test code = 65222-5) 31.2 seconds Unknown 26.0-38.0 F Ordering Physician UnknownLaboratory Iojhelb8500-60-86 18:33:00Identifier 74518- 6 Result Time 2019-02-23 18:33:00Unknown Test Item Value Reference Range Comments Unknown (test code = 2524-7) 1.6 mmol/L Unknown 0.5-2.0 F Ordering Physician UnknownLaboratory Wzfzkmm4712-82-92 18:32:00Identifier 97400- 6 Result Time 2019-02-23 18:32:00Unknown Test Item Value Reference Range Comments Unknown (test code = 58408-8) 0.01 s/c Unknown Unknown F Ordering Physician Unknown
--- OUTSIDE RECORDS SUMMARY | 2019-10-05 20:54 | XMS REPORT | Continuity of Care Document ---
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 Onset: 02/25/2019 Social History Type Date Description Comments Sex Unknown ETOH Use Currently consumes none as of right alcohol now, used to drink tho Tobacco Use Start: Unknown Patient has never smoked Recreational Drug Use Denies Drug Use Smoking Status Reviewed: 09/12/19 Patient has never smoked Exercise Type/Frequency Exercises rarely Allergies, Adverse Reactions, Alerts Description No Known Drug Allergies Medications Active Medications SIG Qnty Indications Ordering Provider Date Testosterone Cypionate Luc Hartley, 200mg/ml Solution Cialis as needed Luc Hartley, 5mg Tablets Propranolol HCL ER take 1 capsule by Unknown 120mg mouth once daily Caps ER 24HR Folic Acid 1 by mouth every Unknown 800mcg Tablets day Primidone 3x po Unknown 250mg Tablets Labetalol HCL 1 by mouth twice Unknown 100mg a day Tablets Amlodipine Besylate 1 by mouth every Unknown 10mg day Tablets Xifaxan Take 1 Tablet By Unknown 550mg Tablets Mouth Two Times Daily Lactulose Unknown 10GM/15ML Solution Prednisone 4 tabs day po Unknown 10mg (21) TBPK Propranolol HCL 4x daily as Unknown 20mg needed Tablets Acamprosate Calcium 2 tab by mouth Unknown 333mg three times a day Tablets DR Catherine 1/2 tablet every Unknown 15mg Tablets night at bedtime Immunizations Description No Information Available Vital Signs Date Vital Result Comment 09/12/2019 9:33am Height 67 inches 5'7" Weight 149.00 lb Heart Rate 72 /min BP Systolic Sitting 152 mmHg BP Diastolic Sitting 84 mmHg Respiratory Rate 20 /min BMI (Body Mass Index) 23.3 kg/m2 01/09/2019 2:21pm Height 67 inches 5'7" Weight 152.00 lb Heart Rate 78 /min BP Systolic Sitting 120 mmHg BP Diastolic Sitting 80 mmHg BMI (Body Mass Index) 23.8 kg/m2 Results Test Acquired Date Facility Test Result H/L Range Note Laboratory test 06/05/2019 [facility] Vitamin B12 314 pg/mL Normal 180-914 [address] [place] [id number] [phone] Methylmalonic Acid Mma 0.09 nmol/mL <=0.40 2 Vitamin B1 (Whole Blood) 126 nmol/L 70-180 3 1 Normal Range 180 to 914 Indeterminate Range 145 to 180 Deficient Range <145 2 ADDITIONAL INFORMATION This test was developed and its performance characteristics determined by [facility] in a manner consistent with CLIA requirements. This test has not been cleared or approved by the U.S. Food and Drug Administration. Test Performed by: [facility] [address] [address] Tile Sorter: Zac Alex M.D. Ph.D.; CLIA# [id number] ADDITIONAL INFORMATION This test was developed and its performance characteristics determined by [facility] in a manner consistent with CLIA requirements. This test has not been cleared or approved by the U.S. Food and Drug Administration. Test Performed by: [facility] [address] [place] [address] Tile Sorter: Zac Alex M.D. Ph.D.; CLIA# [id number] Procedures Date Code Description Status 06/28/2019 66786 EKG, Interpretation Only Completed 06/05/2019 36865 EEG Recording Awake & Drowsy Completed Medical Devices Description No Information Available Encounters Type Date Location Provider Dx Diagnosis Office Visit 07/07/2019 Valentine Holguin MD F10.231 Alcohol dependence 10:26a Assharve[facility]c with withdrawal Hospitalists delirium R45.851 Suicidal ideations Office Visit 07/06/2019 10:26a Valentine Holguin F10.231 Alcohol Assmishel gabriel MD dependence with Hospitalists withdrawal delirium R45.851 Suicidal ideations R79.89 Other specified abnormal findings of blood chemistry E44.0 Moderate protein-calorie malnutrition G25.0 Essential tremor I10 Essential (primary) hypertension K86.9 Disease of pancreas, unspecified Office Visit 07/05/2019 10:25a Valentine Holguin F10.231 Alcohol Assocpc MD dependence with Hospitalists withdrawal delirium R45.851 Suicidal ideations R79.89 Other specified abnormal findings of blood chemistry E44.0 Moderate protein-calorie malnutrition G25.0 Essential tremor I10 Essential (primary) hypertension K86.9 Disease of pancreas, unspecified Office Visit 07/04/2019 10:25a Valentine Holguin F10.231 Alcohol Assoc,pc MD dependence with Hospitalists withdrawal delirium R79.89 Other specified abnormal findings of blood chemistry E44.0 Moderate protein-calorie malnutrition G25.0 Essential tremor I10 Essential (primary) hypertension K86.9 Disease of pancreas, unspecified Office Visit 07/03/2019 5:25p Valentine Holguin, F10.231 Alcohol Assoc,pc MD dependence with Hospitalists withdrawal delirium R45.851 Suicidal ideations R79.89 Other specified abnormal findings of blood chemistry E44.0 Moderate protein-calorie malnutrition G25.0 Essential tremor I10 Essential (primary) hypertension K86.9 Disease of pancreas, unspecified Office Visit 07/01/2019 [facility] F10.231 Alcohol 10:24a mishel Ge M.D.,FACP dependence with Hospitalists withdrawal delirium E87.6 Hypokalemia Office Visit 06/30/2019 [facility] F10.231 Alcohol 10:24a mishel Ge M.D.,FACP dependence with Hospitalists withdrawal delirium E87.6 Hypokalemia Office Visit 06/29/2019 [facility] F10.231 Alcohol 10:23a mishel Ge M.D.,FACP dependence with Hospitalists withdrawal delirium E87.6 Hypokalemia R45.851 Suicidal ideations Office Visit 06/28/2019 [facility] F10.231 Alcohol 10:23a mishel Ge M.D.,FACP dependence with Hospitalists withdrawal delirium E87.6 Hypokalemia R45.851 Suicidal ideations Office Visit 06/27/2019 [facility] F10.10 Alcohol abuse, 10:22a mishel Ge M.D. uncomplicated Hospitalists G25.0 Essential tremor I10 Essential (primary) hypertension R79.89 Other specified abnormal findings of blood chemistry Office Visit 06/01/2019 [facility] Jeffrey, R41.82 Altered mental 12:48p mishel Ge M.D. 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 Dick MD 07/07/2019 F10.231 Alcohol dependence with withdrawal Buddy Holguin MD delirium 07/07/2019 R45.851 Suicidal ideations Buddy Holguin MD 07/06/2019 F10.231 Alcohol dependence with withdrawal Buddy Holguin MD delirium 07/06/2019 R45.851 Suicidal ideations Buddy Holguin MD 07/06/2019 R79.89 Other specified abnormal findings of Buddy Holguin MD blood chemistry 07/06/2019 E44.0 Moderate protein-calorie malnutrition Buddy Holguin MD 07/06/2019 G25.0 Essential tremor Buddy Holguin MD 07/06/2019 I10 Essential (primary) hypertension Buddy Holguin MD 07/06/2019 K86.9 Disease of pancreas, unspecified Buddy Holguin MD 07/05/2019 F10.231 Alcohol dependence with withdrawal Buddy Holguin MD delirium 07/05/2019 R45.851 Suicidal ideations Buddy Holguin MD 07/05/2019 R79.89 Other specified abnormal findings of Buddy Holguin MD blood chemistry 07/05/2019 E44.0 Moderate protein-calorie malnutrition Buddy Holguin MD 07/05/2019 G25.0 Essential tremor Buddy Holguin MD 07/05/2019 I10 Essential (primary) hypertension Buddy Holguin MD 07/05/2019 K86.9 Disease of pancreas, unspecified Buddy Holguin MD 07/04/2019 F10.231 Alcohol dependence with withdrawal Buddy Holguin MD delirium 07/04/2019 R79.89 Other specified abnormal findings of Buddy Holguin MD blood chemistry 07/04/2019 E44.0 Moderate protein-calorie malnutrition Buddy Holguin MD 07/04/2019 G25.0 Essential tremor Buddy Holguin MD 07/04/2019 I10 Essential (primary) hypertension Buddy Holguin MD 07/04/2019 K86.9 Disease of pancreas, unspecified Buddy Holguin MD 07/03/2019 F10.231 Alcohol dependence with withdrawal Buddy Holguin MD delirium 07/03/2019 R45.851 Suicidal ideations Buddy Holguin MD 07/03/2019 R79.89 Other specified abnormal findings of Buddy Holguin MD blood chemistry 07/03/2019 E44.0 Moderate protein-calorie malnutrition Buddy Holguin MD 07/03/2019 G25.0 Essential tremor Buddy Holguin MD 07/03/2019 I10 Essential (primary) hypertension Buddy Holguin MD 07/03/2019 K86.9 Disease of pancreas, unspecified Buddy Holguin MD 07/01/2019 F10.231 Alcohol dependence with withdrawal Woodrow Cheatham M.D.,FACP delirium 07/01/2019 E87.6 Hypokalemia Woodrow Cheatham M.D.,FACP 06/30/2019 F10.231 Alcohol dependence with withdrawal Woodrow Cheatham M.D.,FACP delirium 06/30/2019 E87.6 Hypokalemia Woodrow Cheatham M.D.,FACP 06/29/2019 F10.231 Alcohol dependence with withdrawal Woodrow Cheatham M.D.,FACP delirium 06/29/2019 E87.6 Hypokalemia Woodrow Cheatham M.D.,FACP 06/29/2019 R45.851 Suicidal ideations Woodrow Cheatham M.D.,FACP 06/28/2019 R94.31 Abnormal electrocardiogram [ECG] Emelyn Mendiola M.D. [EKG] 06/28/2019 F10.231 Alcohol dependence with withdrawal Woodrow Cheatham M.D.,FACP delirium 06/28/2019 E87.6 Hypokalemia Woodrow Cheatham M.D.,FACP 06/28/2019 R45.851 Suicidal ideations [facility]atham M.D.,[facility] 06/27/2019 F10.10 Alcohol abuse, uncomplicated Meri Murphy M.D. 06/27/2019 G25.0 Essential tremor Meri Murphy M.D. 06/27/2019 I10 Essential (primary) hypertension Meri Murphy M.D. 06/27/2019 R79.89 Other specified abnormal findings of Meri Murphy M.D. blood chemistry 06/05/2019 R44.3 Hallucinations, unspecified Robert Fried M.D. 06/05/2019 R41.82 Altered mental status, unspecified Robert Fried M.D. 06/01/2019 R41.82 Altered mental status, unspecified Meri Muprhy M.D. 06/01/2019 R44.3 Hallucinations, unspecified Meri Murphy M.D. Plan of Treatment 09/12/2019 - Camilo Dick MDF10.231 Alcohol dependence with withdrawal deliriumComments:Discussed that he has multiple neurological problems secondary to his alcoholism including ,problemsthinking and hallucinations tremor, incoordination, gait problems. The underlying neurological injury from the alcohol would include encephalopathy, cerebellar dysfunction and neuropathy. Discussed that treating with lactulose addresses an individual issue but the only way to truly combat these symptoms and problems is to give up the alcohol and stay off. I remain concerned he will continue to deteriorate if he does not continue.. I recommended that he call his primary to set up an admission to get detoxed. I will see as needed since I do not think if things do not change I will be able to help him with this but I will always be glad to see as needed.Follow up:as qajdhyE01.41 Metabolic mnyilhybjwhfhcX23.1 Alcoholic polyneuropathy Functional Status Description No Information Available Mental Status Description No Information Available Referrals Description No Information Available
[2019-10-05] MEDS ORDERED: NS 0.9% 1000 ML** 1,000 ML IV ONE (21:07)
[2019-10-05] MEDS ORDERED: Thiamine INJ* 100 MG/ML 2 ML VIAL IM ONE (21:09)
[2019-10-05 22:28] LABS: Hematocrit 33 % (42-52); Hemoglobin 11.1 g/dL (14.0-18.0); Mean Corpuscular HGB Conc 34 g/dL (31-36); Mean Corpuscular Hemoglobin 32 pg (27-31); Mean Corpuscular Volume 95 fL (80-94); Red Blood Count 3.46 10^6 /uL (4.18-5.48); Red Cell Distribution Width 15 % (10-15)
[2019-10-05 22:29] LABS: INR 0.98 (0.82-1.09)
--- NOTE | 2019-10-05 22:30 | ED ---
Head Injury - HPI Summary HPI Summary: Patient is a 59 y/o M presenting to [facility] via EMS with chief complaint of head injury. He states that he had parked his car across the street from his apartment, gotten out of his car, slipped on some ice and fell, hitting his head. Multiple areas of bruising to face and arms noted, laceration to left eyebrow noted as well. He notes that he had one beer earlier today. He denies CP , SOB, MENDOZA, and visual changes. Home medications and allergies are reviewed. - History Of Current Complaint Chief Complaint: EDFall Stated Complaint: FALL/ETOH PER EMS Time Seen by Provider: 10/05/19 21:07 Hx Obtained From: Patient Mechanism Of Injury: Fall From A Standing Position Onset/Duration: Still Present Onset of Pain: Prior to Arrival Pain Intensity: 0 Pain Scale Used: 0-10 Numeric Location: Discrete At: Associated Signs And Symptoms: Other: - denies CP, SOB, MENDOZA, and visual changes. - Allergies/Home Medications Allergies/Adverse Reactions: Allergies Allergy/AdvReac Type Severity Reaction Status Date / Time amoxicillin AdvReac Mild GI Upset Verified 10/05/19 20:58 Home Medications: Home Medications Folic Acid TAB* [Folvite TAB*] 800 mcg PO DAILY 11/02/18 [History Confirmed ] Primidone TAB 250 mg (*) [Mysoline 250 mg TAB (*)] 250 mg PO TID 11/02/18 [ History Confirmed 10/05/19] amLODIPine TAB* [Norvasc 5 mg TAB*] 10 mg PO DAILY 11/02/18 [History Confirmed 10/05/19] Loteprednol Etabonate [Alrex] 1 drop BOTH EYES DAILY 02/23/19 [History Confirmed 10/05/19] Testosterone Cypionate (NF) 1 ml IM WEEKLY 02/23/19 [History Confirmed 10/05/19] Ibuprofen TAB* [Motrin TAB* 400 MG] 400 mg PO Q6H PRN tab 03/01/19 [Rx Confirmed 10/05/19] Lactobacillus Acidophilus* 1 tab PO BID tab 03/01/19 [Rx Confirmed 10/05/19] Lidocaine PATCH 5%* [Lidoderm 5% Patch*] 1 patch TRANSDERM DAILY patch [Rx Confirmed 10/05/19] Magnesium Oxide TAB* [MagOx 400 TAB*] 400 mg PO BID tab 03/01/19 [Rx Confirmed 10/05/19] Multivitamins/Minerals TAB* [Theragran/minerals TAB*] 1 tab PO DAILY tab [Rx Confirmed 10/05/19] Thiamine TAB* [Vitamin B-1 TAB 100 MG*] 100 mg PO DAILY tab 03/01/19 [Rx Confirmed 10/05/19] RiFAXimin* [Xifaxan*] 550 mg PO BID 06/02/19 [History Confirmed 10/05/19] Tadalafil (Nf) [Cialis (NF)] 5 mg PO Q36H PRN 06/02/19 [History Confirmed ] Labetalol TAB* [Trandate TAB*] 100 mg PO BID 06/27/19 [History Confirmed ] Propranolol HCl 20 mg PO QID PRN 06/27/19 [History Confirmed 10/05/19] Acamprosate DR (NF) [Campral (NF)] 666 mg PO TID #90 tab 07/07/19 [Rx Confirmed 10/05/19] Disulfiram TAB* [Antabuse 250 MG TAB*] 250 mg PO SEE INSTRUCTIONS #40 tab [Rx Confirmed 10/05/19] Lactulose* 30 ml PO SEE INSTRUCTIONS #90 udc 07/07/19 [Rx Confirmed 10/05/19] Mirtazapine TAB* [Remeron TAB*] 7.5 mg PO BEDTIME #30 tab 07/07/19 [Rx Confirmed 10/05/19] PMH/Surg Hx/FS Hx/Imm Hx Endocrine/Hematology History: Denies: Hx Diabetes, Hx Thyroid Disease Cardiovascular History: Reports: Hx Hypertension - DOES TAKE MEDICATIONS Denies: Hx Pacemaker/ICD, Hx Peripheral Vascular Disease Respiratory History: Denies: Hx Asthma, Hx Chronic Obstructive Pulmonary Disease (COPD) GI History: Reports: Other GI Disorders - Nausea/Vomiting x3 months Denies: Hx Ulcer History: Denies: Hx Renal Disease Musculoskeletal History: Denies: Hx Arthritis, Hx Osteoporosis Sensory History: Reports: Hx Contacts or Glasses Denies: Hx Cataracts, Hx Glaucoma, Hx Hearing Aid Opthamlomology History: Reports: Hx Contacts or Glasses Denies: Hx Cataracts, Hx Glaucoma Neurological History: Denies: Hx Headaches, Hx Seizures, Hx Transient Ischemic Attacks (TIA) Psychiatric History: Reports: Hx Anxiety, Hx Depression, Hx Inpatient Treatment , Hx Community Mental Health Tx, Hx Substance Abuse - Hx ETOH, Other Psychiatric Issues/Disorders - 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 Denies: Hx Attention Deficit Hyperactivity Disorder, Hx Eating Disorder, Hx Panic Disorder, Hx Post Traumatic Stress Disorder, Hx Schizophrenia, Hx Bipolar Disorder, Hx Suicide Attempt, Hx of Violent Episodes Against Others - Surgical History Surgery Procedure, Year, and Place: [facility] SCAN OF PANCREAS AND LIVER (LAP); - Immunization History Date of Tetanus Vaccine: UTD Date of Influenza Vaccine: NO Infectious Disease History: No Infectious Disease History: Denies: Hx Hepatitis, Hx Human Immunodeficiency Virus (HIV), Traveled Outside the [place] in Last 30 Days - Family History Known Family History: Positive: Hypertension - Social History Alcohol Use: Daily Alcohol Amount: Varies- "1-4 beers" Hx Substance Use: No Substance Use Type: Reports: None Hx Tobacco Use: No Smoking Status (MU): Never Smoked Tobacco Review of Systems - ROS Summary Review of Systems Summary: Home Medications Medication Instructions Recorded Confirmed Type Folic Acid TAB* [Folvite TAB*] 800 mcg PO DAILY 11/02/18 10/05/19 History Primidone TAB 250 mg (*) [Mysoline 250 mg PO TID 11/02/18 10/05/19 History 250 mg TAB (*)] amLODIPine TAB* [Norvasc 5 mg TAB*] 10 mg PO DAILY 11/02/18 10/05/19 History Loteprednol Etabonate [Alrex] 1 drop BOTH EYES DAILY 02/23/19 10/05/19 History Testosterone Cypionate (NF) 1 ml IM WEEKLY 02/23/19 10/05/19 History Ibuprofen TAB* [Motrin TAB* 400 MG] 400 mg PO Q6H PRN tab 03/01/19 10/05/19 Rx Lactobacillus Acidophilus* 1 tab PO BID tab 03/01/19 10/05/19 Rx Lidocaine PATCH 5%* [Lidoderm 5% 1 patch TRANSDERM DAILY patch 03/01/19 Rx Patch*] Magnesium Oxide TAB* [MagOx 400 400 mg PO BID tab 03/01/19 10/05/19 Rx TAB*] Multivitamins/Minerals TAB* 1 tab PO DAILY tab 03/01/19 10/05/19 Rx [Theragran/minerals TAB*] Thiamine TAB* [Vitamin B-1 TAB 100 100 mg PO DAILY tab 03/01/19 10/05/19 Rx MG*] RiFAXimin* [Xifaxan*] 550 mg PO BID 06/02/19 10/05/19 History Tadalafil (Nf) [Cialis (NF)] 5 mg PO Q36H PRN 06/02/19 10/05/19 History Labetalol TAB* [Trandate TAB*] 100 mg PO BID 06/27/19 10/05/19 History Propranolol HCl 20 mg PO QID PRN 06/27/19 10/05/[address] (NF) [Campral (NF)] 666 mg PO TID #90 tab 07/07/19 10/05/19 Rx Disulfiram TAB* [Antabuse 250 MG 250 mg PO SEE INSTRUCTIONS #40 tab 07/07/19 Rx TAB*] Lactulose* 30 ml PO SEE INSTRUCTIONS #90 udc 07/07/19 10/05/19 Rx Mirtazapine TAB* [Remeron TAB*] 7.5 mg PO BEDTIME #30 tab 07/07/19 10/05/19 Rx Eyes: Other - negative - changes in vision Negative: Chest Pain Negative: Shortness Of Breath Neurological/Mental Status: Other - positive - head injury with facial swelling , bruising, laceration and abrasions Negative: Headache All Other Systems Reviewed And Are Negative: Yes Physical Exam - Summary Physical Exam Summary: General: Well-developed, Well-nourished male. No acute distress. HEENT: Normocephalic, Large ecchymosis around right eye, ecchymosis of the upper left eye with swelling, laceration about the left eyebrow that is around 8 mm and superficial. Eyes: Conjuctiva normal, PERRL. Oropharynx: Clear, mucous membranes moist, (-) exudates. Neck: Soft, FROM, (-) lymphadenopathy, (-) thyromegaly, (-) JVD. Cardiovascular: Normal sinus rhythm, (-) murmur. Lungs: Clear to auscultation bilaterally (-) wheezes, (-) rales, (-) rhonchi. Abdomen: Soft, non-tender, non-distended, (-) organomegaly, normal bowel sounds. Back: (-) CVA tenderness Extremities: No edema. Bruising on arms bilaterally at different stages of healing Skin: Warm, dry, (-) rash. Neuro: Alert and oriented x3, moves all extremities equally. No ataxia. No gait disturbance. No sensory deficit. Normal strength, normal sensation. GCS 15. Psychiatric: Mood normal, affect normal. Triage Information Reviewed: Yes Vital Signs On Initial Exam: Initial Vitals Temp Pulse Resp BP Pulse Ox 97.4 F 83 14 152/101 95 10/05/19 20:35 10/05/19 20:35 10/05/19 20:35 10/05/19 20:35 10/05/19 20:35 Vital Signs Reviewed: Yes - Tiffany Coma Scale Best Eye Response: 4 - Spontaneous Best Motor Response: 6 - Obeys Commands Best Verbal Response: 5 - Oriented Coma Scale Total: 15 Procedures - Sedation Patient Received Moderate/Deep Sedation with Procedure: No Diagnostics - Vital Signs Vital Signs Temp Pulse Resp BP Pulse Ox 10/05/19 20:35 97.4 F 83 14 152/101 95 - Laboratory Result Diagrams: 10/05/19 22:07 10/05/19 22:07 Lab Statement: Any lab studies that have been ordered have been reviewed, and results considered in the medical decision making process. - CT BRAIN CT CT Interpretation Completed By: Radiologist Summary of CT Findings: BRAIN CT IMPRESSION: 1. There is left periorbital and left frontal and temporal scalp contusion and. additional right facial and right frontal scalp contusion and additional. possible right parietal scalp contusion. 2. There is stable age-related diffuse cerebral volume loss and chronic. microvascular ischemic disease. 3. No acute intracranial pathology. THIS REPORT WAS REVIEWED BY ED PHYSICIAN. CERVICAL SPINE CT CT Interpretation Completed By: Radiologist Summary of CT Findings: CT SPINE CT IMPRESSION: No acute cervical spine fracture or other acute traumatic CT pathology. THIS REPORT WAS REVIEWED BY ED PHYSICIAN. MAXILLOFACIAL CT CT Interpretation Completed By: Radiologist Summary of CT Findings: MAXILLOFACIAL CT IMPRESSION: 1. There is there is bilateral facial contusion and left periorbital and left. frontal and temporal scalp contusion and minimal contusion of the right frontal. scalp. 2. No acute maxillofacial fracture. THIS REPORT WAS REVIEWED BY ED PHYSICIAN. Head Injury Course/Dx Course Of Treatment: 59-year-old male presents by ambulance after fall. Patient states that he parked his car across the street from his apartment. He normally packs every in front of the apartment but there washis. He got out of the car to cross the street to go home and slipped on the ice and fell. Upon arrival he has significant bruising to the face mostly the eye area and forehead. Also has a superficial laceration above the left eyebrow. He denies any pain at this time. Denies losing consciousness. Patient admits to drinking one beer. On physical exam he is obviously intoxicated. Slurring his words smells of alcohol. He has severe ecchymosis around the right eye. Above the left eye. 8 mm superficial laceration above the left eyebrow. No other obvious injury. Workup demonstrates a blood alcohol of 407. CAT scans of the head and facial bones and neck demonstrate no obvious fractures. Patient given thiamine IM. IV fluids, Zofran, tetanus. Resting comfortably. Given ibuprofen for pain at his request. Sign change of shift awaiting sobriety and reevaluation. - Diagnoses Provider Diagnoses: Acute alcohol intoxication, Fall, Facial trauma Discharge ED - Sign-Out/Discharge Documenting (check all that apply): Sign-Out Patient Signing out patient TO: Ancelmo Steinberg - Discharge Plan Referrals: Luc Hartley MD [Primary Care Provider] - - Attestation Statements Document Initiated by Tahir: Yes Documenting Scribe: NEFTALI GREEN Provider For Whom Tahir is Documenting (Include Credential): MATEO PANTOJA MD Scribe Attestation: NEFTALI Sewell, scribed for MATEO PANTOJA MD on 10/06/19 at 0656. Scribe Documentation Reviewed: Yes Provider Attestation: The documentation as recorded by the NEFTALI gallagher accurately reflects the service I personally performed and the decisions made by me, MATEO PANTOJA MD Status of Scribe Document: Viewed
[2019-10-05 22:32] LABS: Albumin/Globulin Ratio 1.5 (1-3); BUN/Creatinine Ratio 21.7 (8-20); Calcium 8.1 mg/dL (8.6-10.3); EGFR African American 166.9 (>60); EGFR Non-African American 137.9 (>60); Globulin 2.7 g/dL (2-4); Potassium 3.8 mmol/L (3.5-5.0); Total Bilirubin 0.6 mg/dL (0.2-1.0); Total Protein 6.7 g/dL (6.4-8.9)
[2019-10-05 22:35] LABS: Urine Appearance Clear; Urine Bilirubin Negative (Negative); Urine Blood 1+ (Negative); Urine Color Yellow; Urine Glucose Negative (Negative); Urine Ketones Negative (Negative); Urine Nitrite Negative (Negative); Urine Protein Negative (Negative); Urine Specific Gravity 1.006 (1.010-1.030); Urine Urobilinogen Negative (Negative)
[2019-10-05 22:38] LABS: Urine Bacteria Absent (Absent); Urine Red Blood Cell Absent (Absent); Urine White Blood Cell Absent (Absent)
[2019-10-05 22:52] LABS: ABS Lymphocytes 0.8 10^3/ul (1.0-4.8); ABS Monocytes 0.4 10^3/ul (0-0.8); ABS Neutrophils 1.8 10^3/ul (1.5-7.7); Eosinophil % 0.9 %; Lymphocyte % 25.8 %; Mean Platelet Volume 7.4 fL (7.4-10.4); Nucleated Red Blood Cells % 0.1; Platelet Count 61 10^3/uL (150-450)
[2019-10-05] MEDS ORDERED: Tetan/Diph/Pertus SYR(Tdap)* 0.5 ML SYR(BOOSTRIX) use SYR contains LATEX IM ONE (22:59)
[2019-10-06] MEDS ORDERED: Ibuprofen TAB* 400 MG PO ONE (00:28)
--- NOTE | 2019-10-06 07:18 | ED ---
Progress - Progress Note Progress Note: This pt is a sign out from Dr. Us at shift change 0700 10/06/2019 pending sobriety and disposition. Re-Evaluation - Re-Evaluation First Eval Re-Evaluation Time: 08:26 Change: Unchanged Comment: Pt was unable to ambulate by himself while he was being discharged. He states that he was shaking too much and was unable to balance. Course/Dx - Course Course Of Treatment: This patient was signed by Dr. Us at shift change. At approximately 8:00 and went to see the patient and he is shaking, he is unable to ambulate, the patient seems to be with alcohol withdrawal. The patient was given Ativan 2 mg IV and Valium by mouth. At this time I discussed the case with he accepted the patient for admission. - Diagnoses Provider Diagnoses: Acute alcohol intoxication, Fall, Facial trauma - Provider Notifications Discussed Care Of Patient With: Teja Teague Time Discussed With Above Provider: 08:27 Instructed by Provider To: Admit As Inpatient Admit/Transition Orders Completed By ED Provider: Yes Discharge ED - Sign-Out/Discharge Documenting (check all that apply): Patient Departure - admitted, Receiving Sign -Out Receiving patient FROM: Tala Us - Discharge Plan Condition: Stable Disposition: ADMITTED TO [facility] - Billing Disposition and Condition Condition: STABLE Disposition: Admitted to [facility] - Attestation Statements Document Initiated by Masone: Yes Documenting Scribe: Raciel Celestin Provider For Whom Eliotibglenys is Documenting (Include Credential): Ancelmo Steinberg MD Scribe Attestation: Raciel Sewell, scribed for Ancelmo Steinberg MD on 10/06/19 at 1819. Scribe Documentation Reviewed: Yes Provider Attestation: The documentation as recorded by the Raciel gallagher accurately reflects the service I personally performed and the decisions made by me, Ancelmo Steinberg MD Status of Scribe Document: Viewed
[2019-10-06] MEDS ORDERED: Ibuprofen TAB* 600 MG PO ONE (08:04)
[2019-10-06] MEDS ORDERED: Lorazepam PYXIS KEY PRN (08:16)
[2019-10-06] MEDS ORDERED: LORazepam INJ* 2 MG/ML 1 ML VIAL IV PUSH ONE (08:16)
[2019-10-06] MEDS ORDERED: Lorazepam PYXIS KEY ONE (08:23)
[2019-10-06] MEDS ORDERED: Diazepam TAB(*) 5 MG PO ONE (08:28)
[2019-10-06] MEDS: NS 0.9% 1000 ML** 1,000 ML IV SCH ×2 (09:32→17:23)
[2019-10-06] MEDS ORDERED: Labetalol TAB* 100 MG PO SCH (10:00)
[2019-10-06] MEDS: Magnesium Oxide TAB* 400 MG PO SCH ×2 (11:03→20:22)
[2019-10-06] MEDS: Folic Acid TAB* 1 MG PO SCH (11:03)
[2019-10-06] MEDS: Cyanocobalamin TAB* 500 MCG PO SCH (11:03)
[2019-10-06] MEDS: Thiamine TAB* 100 MG TAB PO SCH (11:03)
[2019-10-06] MEDS: Multivitamins/Minerals TAB PO SCH (11:03)
[2019-10-06] MEDS: amLODIPine TAB* 5 MG PO SCH (11:03)
[2019-10-06 12:00] LABS: Magnesium 1.6 mg/dL (1.9-2.7)
[2019-10-06 12:17] LABS: Folate 19.83 ng/mL (>3.99)
[2019-10-06] MEDS: Oxazepam CAP* 15 MG PO PRN (12:47)
[2019-10-06] MEDS: PRIMIDONE 250 MG PO SCH ×2 (14:08→20:22)
[2019-10-06] MEDS: ACAMPROSATE 333 MG PO SCH ×2 (14:09→20:25)
[2019-10-06] MEDS: Diazepam TAB(*) 10 MG PO SCH (16:42)
[2019-10-06] MEDS: Lactobacillus Acidophilus* 1 TAB PO SCH (20:22)
[2019-10-06] MEDS: Mirtazapine TAB* 15 MG PO SCH (20:22)
[2019-10-06] MEDS: RiFAXimin* 550 MG TAB PO SCH (20:24)
--- NOTE | 2019-10-06 21:14 | HP ---
CC: Luc Hartley MD HISTORY AND PHYSICAL: DATE OF ADMISSION: 10/05/19 PRIMARY CARE PROVIDER: Luc Hartley MD. CHIEF COMPLAINT: Status post fall secondary to alcohol intoxication. HISTORY OF PRESENT ILLNESS: This is a 58-year-old male with a known pertinent past medical history s ignificant for alcohol abuse and dependency, alcohol withdrawal, alcohol intoxication, presents to [facility] on 10/05/19 to the emergency room after a fall incurring head injury while he was trying to walk from the car across the street and apartment, slipped on the ice and fell hitting his head with multiple bruising areas affecting both his face, periorbital, and the left temporal area w ith laceration of the left eyebrow. He was observed in the emergency room on arrival and his labs we re significant for platelet of 61 and his alcohol level 407. He was monitored in the ER, and on the following morning, he started having significant tremors and shakes, and hospitalist service was call ed to evaluate and admit the patient. The patient was seen and evaluated by me in the emergency room . History was obtained as above. The patient confirmed the accidental fall and no loss of conscious ness. He admits of drinking beers, although he subjectively said about 4 to 5 beers, which does not correlate with his alcohol level. He has significant tremor and with blood pressures as high as 184/ 85 and a pulse of 107. He will be admitted to the medical service for alcohol abuse and dependency a nd alcohol withdrawal pending . PAST MEDICAL HISTORY: 1. Hypertension. 2. Alcohol abuse and dependency. 3. Essential tremors. 4. Testicular hypofunction, on testosterone replacement therapy. MEDICATIONS: He is on: 1. Amlodipine 10 mg daily. 2. Thiamine 100 daily. 3. Testosterone 1 cc IM weekly. 4. Cialis 500 q.36 hours. 5. Xifaxan 550 b.i.d. 6. Propranolol 20 mg 4 times a day p.r.n. 7. Primidone 250 t.i.d. 8. Multivitamin 1 tab daily. 9. Remeron 7.5 at bedtime. 10. Mag oxide 400 b.i.d. 11. Alrex. 12. Lidoderm patch. 13. Lactulose 30 cc. 14. Labetalol 100 b.i.d. 15. Ibuprofen 400 q.6. 16. Folic acid 800 mcg daily. 17. Antabuse 250 as needed. 18. Campral 600 mg t.i.d. ALLERGIES: He is allergic to AMOXICILLIN, GI upset. FAMILY HISTORY: Reviewed and noncontributory. SOCIAL HISTORY: Active alcohol drinker. Unemployed. Disabled. REVIEW OF SYSTEMS: As per HPI. PHYSICAL EXAMINATION GENERAL: He is awake, alert, oriented, in no distress. VITAL SIGNS: Temperature 97.4, pulse 83, respiratory rate 14, satting 95, blood pressure 152/101. HEAD AND NECK: He does have significant ecchymosis with bilateral periorbital ecchymoses and left te mporal, left eyebrow laceration dressing applied and re- dressed. Extraocular muscle intact. Perior bital edema from the trauma. LUNGS: Coarse rhonchi, transmitted upper airway breath sounds. CARDIOVASCULAR: S1, S2. Tachycardic. ABDOMEN: Positive bowel sounds. Soft, nontender, nondistended. 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 He does have extremely tremulous upper extremity. Airway intact. Follows simple command. DIAGNOSTIC STUDIES/LAB DATA: CBC: Hemoglobin 11, hematocrit 33, platelets 61. INR 0.9. Chemistry: Sodium 139, potassium 3.8, BUN 13, creatinine 0.6, glucose 117, lactic acid 1.8, mag 1.6. AST 306, ALT 97, alk phos 344. B12 of 321, folate 19.8. Alcohol is 407. Imaging: He had a brain CT, which did not reveal any significant bleed. There was a left periorbita l and left frontal and temporal scalp contusion. Right facial and frontal scalp contusion. No intra cranial bleeds. Maxillofacial CT shows bilateral basal contusion, frontal and temporal scalp contusi on, no maxillofacial fracture. Cervical spine CT shows no acute cervical spine fracture. IMPRESSION AND PLAN: This is a 59-year-old male with a history of hypertension, alcohol abuse and de pendency, who presented to the emergency room after alcohol intoxication and fall with alcohol withdr awal and facial trauma, nonsurgical. 1. Alcohol withdrawal. We will admit the patient for medical detox assisted program. We are going to place him on Valium 10 mg 3 times a day for 4 dose followed by 5 mg 3 times a day for 4 dose that will cover 72 hours. At the same time, we will put him on Serax 30 mg q.4 hours p.r.n. for acute wit hdrawal for WAM greater than 12. We will put him on folic acid, B12, thiamine, he is status post ban danny bag, gentle IV fluids. open hearth worker to consult in the morning please. PT/OT for stability and h is fall. 2. Hypertension. I am going to hold off his labetalol for now. I am going to put him on propranolo l 20 mg t.i.d. Continue his amlodipine. 3. Facial trauma. His skeletal survey was negative for acute fracture or bleed. He does have a lace ration with significant blood saturation of his dressing. I am going to reinforce it with a Megan w rap and then may be reassess him in 24-48 hours and hopefully his coagulopathy with thrombocytopenia will improve. 4. Leukopenia and thrombocytopenia. 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 Continue to follow up daily. Avoid DVT prophylaxis for now. We will use SCD. 5. Transaminitis. Most probably alcohol-induced hepatitis and may take at least 24-48 hours, gilles martin follow up daily. Continue his rifaximin, as he may have underlying cirrhosis. [id number]/[facility] #: [id number]
[2019-10-06] MEDS: Bacitracin OINTMENT* 0.5% 0.5 oz TUBE TOPICAL SCH (22:40)
[2019-10-07] MEDS: Diazepam TAB(*) 10 MG PO SCH ×3 (00:34→17:40)
[2019-10-07] MEDS: Acetaminophen TAB* 325 MG PO PRN ×2 (02:00→19:41)
[2019-10-07] MEDS: Oxazepam CAP* 15 MG PO PRN ×6 (03:04→23:54)
[2019-10-07] MEDS: NS 0.9% 1000 ML** 1,000 ML IV SCH (03:04)
[2019-10-07] MEDS ORDERED: Oxazepam CAP* 15 MG PO ONE ×2 (05:14→11:02)
[2019-10-07 07:14] LABS: ABS Lymphocytes 0.6 10^3/ul (1.0-4.8); ABS Monocytes 0.6 10^3/ul (0-0.8); ABS Neutrophils 2.6 10^3/ul (1.5-7.7); Eosinophil % 0.9 %; Hematocrit 37 % (42-52); Hemoglobin 12.4 g/dL (14.0-18.0); Lymphocyte % 16.2 %; Mean Corpuscular HGB Conc 34 g/dL (31-36); Mean Corpuscular Hemoglobin 32 pg (27-31); Mean Corpuscular Volume 95 fL (80-94); Mean Platelet Volume 8.2 fL (7.4-10.4); Platelet Count 58 10^3/uL (150-450); Red Blood Count 3.83 10^6 /uL (4.18-5.48); Red Cell Distribution Width 15 % (10-15); White Blood Count 3.8 10^3/uL (3.5-10.8)
[2019-10-07 07:32] LABS: Albumin 4.4 g/dL (3.2-5.2); Albumin/Globulin Ratio 1.4 (1-3); BUN/Creatinine Ratio 11.7 (8-20); Calcium 9.4 mg/dL (8.6-10.3); EGFR African American 166.9 (>60); EGFR Non-African American 137.9 (>60); Globulin 3.1 g/dL (2-4); Indirect Bilirubin 1.2 mg/dL (0.3-1.0); Magnesium 1.8 mg/dL (1.9-2.7); Phosphorus 2.4 mg/dL (2.5-5.0); Total Bilirubin 1.8 mg/dL (0.2-1.0); Total Protein 7.5 g/dL (6.4-8.9)
[2019-10-07 07:41] LABS: Potassium 2.7 mmol/L (3.5-5.0)
[2019-10-07] MEDS: Lactobacillus Acidophilus* 1 TAB PO SCH ×2 (08:00→19:42)
[2019-10-07] MEDS: Folic Acid TAB* 1 MG PO SCH (08:00)
[2019-10-07] MEDS: Thiamine TAB* 100 MG TAB PO SCH (08:00)
[2019-10-07] MEDS: Cyanocobalamin TAB* 500 MCG PO SCH (08:01)
[2019-10-07] MEDS: Multivitamins/Minerals TAB PO SCH (08:01)
[2019-10-07] MEDS: PRIMIDONE 250 MG PO SCH ×3 (08:01→19:42)
[2019-10-07] MEDS: RiFAXimin* 550 MG TAB PO SCH ×2 (08:01→19:42)
[2019-10-07] MEDS: amLODIPine TAB* 5 MG PO SCH (08:01)
[2019-10-07] MEDS: Magnesium Oxide TAB* 400 MG PO SCH ×3 (08:02→19:42)
[2019-10-07] MEDS: ACAMPROSATE 333 MG PO SCH ×3 (08:02→19:43)
[2019-10-07] MEDS: Potassium Chlor TAB* 20 MEQ TAB.ER PO SCH ×2 (08:16→13:22)
[2019-10-07] MEDS: Potassium & Sodium Phos 250MG* = 1 PACKET PO SCH ×3 (08:16→19:43)
--- NOTE | 2019-10-07 09:42 | PN ---
Subjective Date of Service: 10/07/19 Interval History: Patient seen today, still having visual hallucinations. his bleeding from his left temporal skin laceration has improved. taking po well. still requiring Serax in addition to his valium. If he continue to require serax more than 4 times a day I may extend his valium scheduled dose. will assess that by am Past Medical History: Unchanged from Admission Objective Active Medications: Acamprosate (Campral (Nf)) 666 mg PO TID [facility]; Protocol Last Admin: 10/07/19 08:02 Dose: Not Given Acetaminophen (Tylenol Tab*) 650 mg PO Q4H PRN PRN Reason: PAIN - MILD Last Admin: 10/07/19 02:00 Dose: 650 mg Amlodipine Besylate (Norvasc Tab*) 10 mg PO DAILY [facility] Last Admin: 10/07/19 08:01 Dose: 10 mg Bacitracin (Bacitracin Ointment*) 1 applic TOPICAL DAILY@1900 [facility] Last Admin: 10/06/19 22:40 Dose: 1 applic Cyanocobalamin (Vitamin B12 Tab*) 1,000 mcg PO DAILY [facility] Last Admin: 10/07/19 08:01 Dose: 1,000 mcg Diazepam (Valium Tab(*)) 10 mg PO Q8H [facility] Stop: 10/07/19 17:01 Last Admin: 10/07/19 00:34 Dose: 10 mg Diazepam (Valium Tab(*)) 5 mg PO Q8H [facility] Stop: 10/09/19 01:01 Folic Acid (Folvite Tab*) 1 mg PO DAILY [facility] Last Admin: 10/07/19 08:00 Dose: 1 mg Lactobacillus Rhamnosus (Lactobacillus Acidophilus*) 1 tab PO BID [facility] Last Admin: 10/07/19 08:00 Dose: 1 tab Magnesium Oxide (Magox 400 Tab*) 400 mg PO TID [facility] Last Admin: 10/07/19 08:02 Dose: 400 mg Mirtazapine (Remeron Tab*) 7.5 mg PO BEDTIME [facility] Last Admin: 10/06/19 20:22 Dose: 7.5 mg Multivitamins/Minerals (Theragran/Minerals Tab*) 1 tab PO DAILY [facility] Last Admin: 10/07/19 08:01 Dose: 1 tab Oxazepam (Serax Cap*) 30 mg PO Q4H PRN PRN Reason: WAM greater than 12 Last Admin: 10/07/19 08:01 Dose: 30 mg Potassium Chloride (Klor Con Er Tab*) 40 meq PO Q6H [facility] Stop: 10/07/19 14:01 Last Admin: 10/07/19 08:16 Dose: 40 meq Potassium Phos/Sodium Phos (Neutra Phos 250 Mg Irving*) 250 mg PO TID [facility] Stop: 10/10/19 08:59 Last Admin: 10/07/19 08:16 Dose: 250 mg Primidone (Mysoline 250 Mg Tab (*)) 250 mg PO TID [facility] Last Admin: 10/07/19 08:01 Dose: 250 mg Propranolol HCl (Inderal 10 Mg Tab) 20 mg PO TID [facility] Last Admin: 10/07/19 08:00 Dose: 20 mg Rifaximin (Xifaxan*) 550 mg PO BID [facility] Last Admin: 10/07/19 08:01 Dose: 550 mg Thiamine HCl (Vitamin B-1 Tab*) 100 mg PO DAILY [facility] Last Admin: 10/07/19 08:00 Dose: 100 mg Vital Signs - 8 hr 10/07/19 10/07/19 10/07/19 02:30 02:59 03:04 Temperature Pulse Rate 91 Respiratory 20 20 20 Rate Blood Pressure 169/92 (mmHg) O2 Sat by Pulse 100 Oximetry 10/07/19 10/07/19 10/07/19 05:03 05:14 05:17 Temperature 98.1 F Pulse Rate 110 Respiratory 19 19 20 Rate Blood Pressure 125/98 (mmHg) O2 Sat by Pulse 99 Oximetry 10/07/19 08:01 Temperature Pulse Rate Respiratory 20 Rate Blood Pressure (mmHg) O2 Sat by Pulse Oximetry Oxygen Devices in Use Now: None Appearance: ecchymosis bilateral eye. Eyes: PERRLA, - - EOMI Ears/Nose/Mouth/Throat: Clear Oropharnyx, Mucous Membranes Moist Neck: NL Appearance and Movements; NL JVP, Trachea Midline Respiratory: Symmetrical Chest Expansion and Respiratory Effort, Clear to Auscultation Cardiovascular: NL Sounds; No Murmurs; No JVD, No Edema Abdominal: NL Sounds; No Tenderness; No Distention Extremities: - - left thight ecchymosis and hematoma anterior mid tibia present on admissions Neurological: Alert and Oriented x 3 Result Diagrams: 10/07/19 06:42 10/07/19 06:42 Assess/Plan/Problems-Billing Assessment: 59 y/o male admitted for alcohol abuse and withdrawal - Patient Problems (1) Alcohol withdrawal delirium Current Visit: No Status: Acute Priority: High Code(s): F10.231 - ALCOHOL DEPENDENCE WITH WITHDRAWAL DELIRIUM SNOMED Code(s): 7366033 Comment: - On thiamine po , vitamin B12, folate, mag supplement - Valium 10 mg tid --> 5 mg tid. he may require additional day of Valium 5 mg bid. Will assess this in am pending how much he is requiring serax in between (2) Alcoholic hepatitis Current Visit: No Status: Acute Code(s): K70.10 - ALCOHOLIC HEPATITIS WITHOUT ASCITES SNOMED Code(s): 826297348 Comment: - LFT continue to trending down. (3) Hypokalemia Current Visit: No Status: Acute Priority: Medium Code(s): E87.6 - HYPOKALEMIA SNOMED Code(s): 77096502 Comment: - Supplemented by mouth (4) Alcohol abuse Current Visit: No Status: Chronic Code(s): F10.10 - ALCOHOL ABUSE, UNCOMPLICATED SNOMED Code(s): 56304103 Comment: - actively drinking. psychiatric social worker supervisor; - [facility] protocol (5) Essential tremor Current Visit: No Status: Chronic Code(s): G25.0 - ESSENTIAL TREMOR SNOMED Code(s): 698598915 Comment: - Continue Primidone and propranolol (6) HTN (hypertension) Current Visit: No Status: Chronic Code(s): I10 - ESSENTIAL (PRIMARY) HYPERTENSION SNOMED Code(s): 16733454 Comment: - continue amlodipine labetalol on hold as he is requiring propranol (7) Pancreatic mass Current Visit: No Status: Chronic Comment: - was seen back in September 2017 , sent for EUS at [place]. Records from ([facility]) and [place] received. No biopsy obtained on EUS as thought it looked like pancreatic pseudocyst. repeat EUS was planned if sober for 3 months but he has continued to relapse. - In September 2018: CEA is 7.2 and Ca 19-9 was 7513,repeat CA 19-9 still over 4000 repeat CA19-9 today. (8) DVT prophylaxis Current Visit: No Status: Acute Priority: Low Code(s): ADI3802 - SNOMED Code(s): 657538556 Comment: - SCDs only
[2019-10-07] MEDS: Bacitracin OINTMENT* 0.5% 0.5 oz TUBE TOPICAL SCH (17:40)
[2019-10-07] MEDS: Mirtazapine TAB* 15 MG PO SCH (19:42)
[2019-10-08] MEDS: Diazepam TAB(*) 5 MG PO SCH ×4 (01:30→22:04)
[2019-10-08] MEDS: Oxazepam CAP* 15 MG PO PRN ×2 (05:20→08:44)
[2019-10-08] MEDS: Acetaminophen TAB* 325 MG PO PRN (05:25)
[2019-10-08 05:49] LABS: BUN/Creatinine Ratio 21.2 (8-20); Calcium 9.6 mg/dL (8.6-10.3); EGFR African American 149.5 (>60); EGFR Non-African American 123.5 (>60); Phosphorus 3.6 mg/dL (2.5-5.0); Potassium 3.7 mmol/L (3.5-5.0)
[2019-10-08] MEDS: Folic Acid TAB* 1 MG PO SCH (08:45)
[2019-10-08] MEDS: Cyanocobalamin TAB* 500 MCG PO SCH (08:45)
[2019-10-08] MEDS: Thiamine TAB* 100 MG TAB PO SCH (08:45)
[2019-10-08] MEDS: RiFAXimin* 550 MG TAB PO SCH ×2 (08:45→22:03)
[2019-10-08] MEDS: Multivitamins/Minerals TAB PO SCH (08:45)
[2019-10-08] MEDS: Potassium & Sodium Phos 250MG* = 1 PACKET PO SCH ×3 (08:46→22:02)
[2019-10-08] MEDS: ACAMPROSATE 333 MG PO SCH ×3 (08:46→22:01)
[2019-10-08] MEDS: Magnesium Oxide TAB* 400 MG PO SCH ×3 (08:46→22:04)
[2019-10-08] MEDS: amLODIPine TAB* 5 MG PO SCH (08:46)
[2019-10-08] MEDS: PRIMIDONE 250 MG PO SCH ×3 (08:56→22:03)
[2019-10-08] MEDS: Lactobacillus Acidophilus* 1 TAB PO SCH ×2 (09:00→23:54)
--- NOTE | 2019-10-08 11:46 | PN ---
Subjective Date of Service: 10/08/19 Interval History: He continues to have withdrawal auditory and visual hallucinations, improves with oral benzo. Scoring high on WAM >12 being treated appropriately with Serax and Valium. He is down to the valium 5 from 10 mg and I thing that was big drop.. therefore, I will keep him on 5 mg tab but will change it to Q6hrs instead from Q8 hrs today and reassess in am. He is having more crusted secretion from both conjunctiva today which is consistent with conjunctivitis induced by his facial trauma. will start treatment today as well Past Medical History: Unchanged from Admission Objective Active Medications: Acamprosate (Campral (Nf)) 666 mg PO TID [facility]; Protocol Last Admin: 10/08/19 08:46 Dose: Not Given Acetaminophen (Tylenol Tab*) 650 mg PO Q4H PRN PRN Reason: PAIN - MILD Last Admin: 10/08/19 05:25 Dose: 650 mg Amlodipine Besylate (Norvasc Tab*) 10 mg PO DAILY [facility] Last Admin: 10/08/19 08:46 Dose: 10 mg Bacitracin (Bacitracin Ointment*) 1 applic TOPICAL DAILY@1900 [facility] Last Admin: 10/07/19 17:40 Dose: 1 applic Cyanocobalamin (Vitamin B12 Tab*) 1,000 mcg PO DAILY [facility] Last Admin: 10/08/19 08:45 Dose: 1,000 mcg Diazepam (Valium Tab(*)) 5 mg PO Q6H [facility] Stop: 10/09/19 09:01 Erythromycin (Erythromycin Opth Oint*) 1 applic BOTH EYES TID [facility] Folic Acid (Folvite Tab*) 1 mg PO DAILY [facility] Last Admin: 10/08/19 08:45 Dose: 1 mg Sodium Chloride (Ns 0.9% 1000 Ml) 1,000 mls @ 125 mls/hr IV .per rate [facility] Lactobacillus Rhamnosus (Lactobacillus Acidophilus*) 1 tab PO BID [facility] Last Admin: 10/08/19 09:00 Dose: 1 tab Magnesium Oxide (Magox 400 Tab*) 400 mg PO TID [facility] Last Admin: 10/08/19 08:46 Dose: 400 mg Mirtazapine (Remeron Tab*) 7.5 mg PO BEDTIME [facility] Last Admin: 10/07/19 19:42 Dose: 7.5 mg Multivitamins/Minerals (Theragran/Minerals Tab*) 1 tab PO DAILY [facility] Last Admin: 10/08/19 08:45 Dose: 1 tab Oxazepam (Serax Cap*) 30 mg PO Q4H PRN PRN Reason: WAM greater than 12 Last Admin: 10/08/19 08:44 Dose: 30 mg Potassium Phos/Sodium Phos (Neutra Phos 250 Mg Irving*) 250 mg PO TID [facility] Stop: 10/10/19 08:59 Last Admin: 10/08/19 08:46 Dose: 250 mg Primidone (Mysoline 250 Mg Tab (*)) 250 mg PO TID [facility] Last Admin: 10/08/19 08:56 Dose: 250 mg Propranolol HCl (Inderal 10 Mg Tab) 20 mg PO TID [facility] Last Admin: 10/08/19 08:46 Dose: 20 mg Rifaximin (Xifaxan*) 550 mg PO BID [facility] Last Admin: 10/08/19 08:45 Dose: 550 mg Thiamine HCl (Vitamin B-1 Tab*) 100 mg PO DAILY [facility] Last Admin: 10/08/19 08:45 Dose: 100 mg Vital Signs - 8 hr 10/08/19 10/08/19 10/08/19 05:10 05:20 07:00 Temperature 98.3 F Pulse Rate 99 Respiratory 20 20 18 Rate Blood Pressure 120/60 (mmHg) O2 Sat by Pulse 97 Oximetry 10/08/19 10/08/19 10/08/19 07:11 08:00 08:27 Temperature 98.0 F Pulse Rate 94 Respiratory 18 20 18 Rate Blood Pressure 136/82 (mmHg) O2 Sat by Pulse 98 Oximetry 10/08/19 10/08/19 10/08/19 08:44 08:45 09:00 Temperature Pulse Rate Respiratory 18 18 20 Rate Blood Pressure (mmHg) O2 Sat by Pulse Oximetry 10/08/19 10/08/19 10/08/19 10:52 11:28 11:29 Temperature 98.5 F Pulse Rate 89 Respiratory 21 18 18 Rate Blood Pressure 116/81 (mmHg) O2 Sat by Pulse 94 Oximetry Oxygen Devices in Use Now: None Appearance: awake, alert distress. oriented to person and place but not to time. He was able to recognize me as MD and by name. Eyes: - - Bilateral yellow crusted secretion both eyes, right worse than the left Ears/Nose/Mouth/Throat: Mucous Membranes Moist Neck: NL Appearance and Movements; NL JVP, Trachea Midline Respiratory: Symmetrical Chest Expansion and Respiratory Effort, Clear to Auscultation Cardiovascular: NL Sounds; No Murmurs; No JVD, No Edema Abdominal: NL Sounds; No Tenderness; No Distention Extremities: No Edema, - - muliple ecchymosis throughout, mostly facial and periorobital, laceration left lateral eyebrown, both leg left more than the right Skin: - - muliple ecchymosis throughout, mostly facial and periorobital, laceration left lateral eyebrown, both leg left more than the right Neurological: - - intermittent hallucination auditory and visual Result Diagrams: 10/07/19 06:42 10/08/19 05:25 Assess/Plan/Problems-Billing Assessment: 59 y/o male admitted for alcohol abuse and withdrawal with facial trauma and periorbital contusion and ecchymosis - Patient Problems (1) Alcohol withdrawal delirium Current Visit: No Status: Acute Priority: High Code(s): F10.231 - ALCOHOL DEPENDENCE WITH WITHDRAWAL DELIRIUM SNOMED Code(s): 9191635 Comment: - On thiamine po , vitamin B12, folate, mag supplement - s/p Valium 10 mg tid 36 hrs --> 5 mg tid. However he is still having significant WAM and tremors. Will increase to 5 mg Q6hrs and try tid tomorrow. - I have suspiscion that he will need at least 5 days taper most likely 7 days taper given the severity of his withdrawal. - I anticipate that he will need 5 mg tid starting tomorrow 10/09/19, 5 mg bid the day after 10/10/19. - Reassess on wednesday10/10/19 to se if he can be taken off all Benzo (valium and serax) and monitor for additional 24 hrs off benzo to ensure stability. Once off all Benzo for 24 hrs he will be medically cleared. (2) Alcoholic hepatitis Current Visit: No Status: Acute Code(s): K70.10 - ALCOHOLIC HEPATITIS WITHOUT ASCITES SNOMED Code(s): 023233604 Comment: - LFT continue to trending down. rechec in am - HCO3- is coming down will resume IVF to avoid acute metabolic acidosis from hypovolemia. 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 Records from [facility] ( [facility]) and [place] received. No biopsy obtained on EUS as thought it looked like pancreatic pseudocyst. repeat EUS was planned if sober for 3 months but he has continued to relapse." - At this time I wiln not pursue any further imaging studies until he is sober and is able to commit for outpatient follow up. Anyfurther imaging or studies will require compliance and outpatient follow up and work up. He is not able to demonstrate committment to any at this time (8) Conjunctivitis Current Visit: Yes Status: Acute Code(s): H10.9 - UNSPECIFIED CONJUNCTIVITIS SNOMED Code(s): 5840642 Comment: - start erythromycin ribbon (9) DVT prophylaxis Current Visit: No Status: Acute Priority: Low Code(s): RKA3592 - SNOMED Code(s): 614295268 Comment: - SCDs only
[2019-10-08] MEDS: NS 0.9% 1000 ML** 1,000 ML IV SCH ×2 (12:02→22:18)
[2019-10-08] MEDS: Erythromycin OPTH OINT* APPLIC OINT BOTH EYES SCH ×2 (13:21→22:11)
[2019-10-08] MEDS: Mirtazapine TAB* 15 MG PO SCH (22:05)
[2019-10-08] MEDS: Bacitracin OINTMENT* 0.5% 0.5 oz TUBE TOPICAL SCH (23:40)
[2019-10-09] MEDS: Diazepam TAB(*) 5 MG PO SCH ×3 (02:52→15:01)
[2019-10-09] MEDS: Acetaminophen TAB* 325 MG PO PRN (03:50)
[2019-10-09] MEDS: NS 0.9% 1000 ML** 1,000 ML IV SCH (05:40)
[2019-10-09 06:56] LABS: ABS Eosinophils 0.1 10^3/ul (0-0.6); ABS Lymphocytes 0.8 10^3/ul (1.0-4.8); ABS Neutrophils 3.7 10^3/ul (1.5-7.7); Eosinophil % 1.3 %; Hematocrit 30 % (42-52); Hemoglobin 10.3 g/dL (14.0-18.0); Lymphocyte % 13.4 %; Mean Corpuscular HGB Conc 35 g/dL (31-36); Mean Corpuscular Hemoglobin 33 pg (27-31); Mean Corpuscular Volume 96 fL (80-94); Mean Platelet Volume 8.7 fL (7.4-10.4); Nucleated Red Blood Cells % 0.1; Platelet Count 83 10^3/uL (150-450); Red Cell Distribution Width 15 % (10-15); White Blood Count 5.6 10^3/uL (3.5-10.8)
[2019-10-09 07:11] LABS: Albumin 3.4 g/dL (3.2-5.2); Albumin/Globulin Ratio 1.3 (1-3); BUN/Creatinine Ratio 23.7 (8-20); Calcium 8.5 mg/dL (8.6-10.3); EGFR African American 170.1 (>60); EGFR Non-African American 140.6 (>60); Globulin 2.6 g/dL (2-4); Indirect Bilirubin 0.6 mg/dL (0.3-1.0); Magnesium 1.8 mg/dL (1.9-2.7); Phosphorus 3.3 mg/dL (2.5-5.0); Potassium 3.1 mmol/L (3.5-5.0); Total Bilirubin 0.9 mg/dL (0.2-1.0)
[2019-10-09] MEDS: Potassium & Sodium Phos 250MG* = 1 PACKET PO SCH ×3 (09:40→19:49)
[2019-10-09] MEDS: ACAMPROSATE 333 MG PO SCH ×3 (09:41→19:52)
[2019-10-09] MEDS: Thiamine TAB* 100 MG TAB PO SCH (09:42)
[2019-10-09] MEDS: Lactobacillus Acidophilus* 1 TAB PO SCH ×2 (09:42→19:51)
[2019-10-09] MEDS: PRIMIDONE 250 MG PO SCH ×3 (09:44→19:49)
[2019-10-09] MEDS: RiFAXimin* 550 MG TAB PO SCH ×2 (09:44→19:50)
[2019-10-09] MEDS: Folic Acid TAB* 1 MG PO SCH (09:44)
[2019-10-09] MEDS: Magnesium Oxide TAB* 400 MG PO SCH ×3 (09:45→19:49)
[2019-10-09] MEDS: Multivitamins/Minerals TAB PO SCH (09:45)
[2019-10-09] MEDS: Potassium Chlor TAB* 20 MEQ TAB.ER PO SCH ×2 (09:46→19:51)
[2019-10-09] MEDS: amLODIPine TAB* 5 MG PO SCH (09:46)
[2019-10-09] MEDS: Cyanocobalamin TAB* 500 MCG PO SCH (09:47)
[2019-10-09] MEDS: Erythromycin OPTH OINT* APPLIC OINT BOTH EYES SCH ×3 (09:48→19:53)
--- NOTE | 2019-10-09 12:52 | PN ---
Subjective Date of Service: 10/09/19 Interval History: Patient seen this morning, he is the most awake and alert this morning. He actually was able to get out of bed to chair with PT. He is down to Valium 5 mg q8hrs will start today and will continue the Serax Prn. He did require Serax 5 times 10/07/19; only two time 10/08/19. Will continue to follow up his taper closely. Past Medical History: Unchanged from Admission Objective Active Medications: Acamprosate (Campral (Nf)) 666 mg PO TID [facility]; Protocol Last Admin: 10/09/19 09:41 Dose: 666 mg Acetaminophen (Tylenol Tab*) 650 mg PO Q4H PRN PRN Reason: PAIN - MILD Last Admin: 10/09/19 03:50 Dose: 650 mg Amlodipine Besylate (Norvasc Tab*) 10 mg PO DAILY [facility] Last Admin: 10/09/19 09:46 Dose: 10 mg Bacitracin (Bacitracin Ointment*) 1 applic TOPICAL DAILY@1900 [facility] Last Admin: 10/08/19 23:40 Dose: 1 applic Cyanocobalamin (Vitamin B12 Tab*) 1,000 mcg PO DAILY [facility] Last Admin: 10/09/19 09:47 Dose: 1,000 mcg Diazepam (Valium Tab(*)) 5 mg PO Q8H [facility] Stop: 10/10/19 08:01 Erythromycin (Erythromycin Opth Oint*) 1 applic BOTH EYES TID [facility] Last Admin: 10/09/19 09:48 Dose: 1 applic Folic Acid (Folvite Tab*) 1 mg PO DAILY [facility] Last Admin: 10/09/19 09:44 Dose: 1 mg Sodium Chloride (Ns 0.9% 1000 Ml) 1,000 mls @ 125 mls/hr IV .per rate [facility] Last Admin: 10/09/19 05:40 Dose: 125 mls/hr Lactobacillus Rhamnosus (Lactobacillus Acidophilus*) 1 tab PO BID [facility] Last Admin: 10/09/19 09:42 Dose: 1 tab Magnesium Oxide (Magox 400 Tab*) 400 mg PO TID [facility] Last Admin: 10/09/19 09:45 Dose: 400 mg Mirtazapine (Remeron Tab*) 7.5 mg PO BEDTIME [facility] Last Admin: 10/08/19 22:05 Dose: 7.5 mg Multivitamins/Minerals (Theragran/Minerals Tab*) 1 tab PO DAILY [facility] Last Admin: 10/09/19 09:45 Dose: 1 tab Oxazepam (Serax Cap*) 30 mg PO Q4H PRN PRN Reason: WAM greater than 12 Last Admin: 10/08/19 08:44 Dose: 30 mg Potassium Chloride (Klor Con Er Tab*) 20 meq PO BID [facility] Last Admin: 10/09/19 09:46 Dose: 20 meq Potassium Phos/Sodium Phos (Neutra Phos 250 Mg Irving*) 250 mg PO TID [facility] Stop: 10/10/19 08:59 Last Admin: 10/09/19 09:40 Dose: 250 mg Primidone (Mysoline 250 Mg Tab (*)) 250 mg PO TID [facility] Last Admin: 10/09/19 09:44 Dose: 250 mg Propranolol HCl (Inderal 10 Mg Tab) 20 mg PO TID [facility] Last Admin: 10/09/19 09:43 Dose: 20 mg Rifaximin (Xifaxan*) 550 mg PO BID [facility] Last Admin: 10/09/19 09:44 Dose: 550 mg Thiamine HCl (Vitamin B-1 Tab*) 100 mg PO DAILY [facility] Last Admin: 10/09/19 09:42 Dose: 100 mg Vital Signs - 8 hr 10/09/19 10/09/19 10/09/19 05:00 05:08 07:48 Temperature 98.6 F Pulse Rate 70 Respiratory 20 20 18 Rate Blood Pressure 151/92 (mmHg) O2 Sat by Pulse 99 Oximetry 10/09/19 10/09/19 10/09/19 08:00 09:25 11:09 Temperature 98.5 F 97.7 F Pulse Rate 81 85 Respiratory 18 20 19 Rate Blood Pressure 166/87 125/81 (mmHg) O2 Sat by Pulse 95 97 Oximetry Oxygen Devices in Use Now: None Appearance: Awake, alert. more alert and cooporative. He did participate with PT this morning. Bilateral eccyhmosis and periorbital edema from traumatic fall and hematoma Eyes: PERRLA, - - conjunctivitis, with yellow crusted secretion bilateral improving Ears/Nose/Mouth/Throat: Clear Oropharnyx, Mucous Membranes Moist Neck: NL Appearance and Movements; NL JVP, Trachea Midline Respiratory: Symmetrical Chest Expansion and Respiratory Effort, Clear to Auscultation Cardiovascular: NL Sounds; No Murmurs; No JVD Abdominal: NL Sounds; No Tenderness; No Distention Skin: No Rash or Ulcers Neurological: Alert and Oriented x 3 Result Diagrams: 10/09/19 06:20 10/09/19 06:20 Assess/Plan/Problems-Billing Assessment: 59 y/o male admitted for alcohol abuse and withdrawal with facial trauma and periorbital contusion and ecchymosis - Patient Problems (1) Alcohol withdrawal delirium Current Visit: No Status: Acute Priority: High Code(s): F10.231 - ALCOHOL DEPENDENCE WITH WITHDRAWAL DELIRIUM SNOMED Code(s): 7859577 Comment: - On thiamine po , vitamin B12, folate, mag supplement - s/p Valium 10 mg tid, 5 mg qid. - Will place him on 5 mg tid today 10/09/19 with the goal valium 5 mg bid tomorrow 10/10/19. Continue Serax PRN to end 10/10/19 midnight. Observe him to ensure he does well off Benzo. If remains stable without Benzo he may be discharged (pending safe dispositon) as early as 10/12/19. (2) Alcoholic hepatitis Current Visit: No Status: Acute Code(s): K70.10 - ALCOHOLIC HEPATITIS WITHOUT ASCITES SNOMED Code(s): 696564062 Comment: - LFT continue to trending down. 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 Records from ( [place]) and [place] received. No biopsy obtained on EUS as thought it looked like pancreatic pseudocyst. repeat EUS was planned if sober for 3 months but he has continued to relapse." - At this time I wiln not pursue any further imaging studies until he is sober and is able to commit for outpatient follow up. Anyfurther imaging or studies will require compliance and outpatient follow up and work up. He is not able to demonstrate committment to any at this time (8) Conjunctivitis Current Visit: Yes Status: Acute Code(s): H10.9 - UNSPECIFIED CONJUNCTIVITIS SNOMED Code(s): 4724483 Comment: - start erythromycin ribbon day # 2/ (9) DVT prophylaxis Current Visit: No Status: Acute Priority: Low Code(s): QHA6198 - SNOMED Code(s): 112439644 Comment: - SCDs only
[2019-10-09] MEDS: Mirtazapine TAB* 15 MG PO SCH (19:52)
[2019-10-09] MEDS: Bacitracin OINTMENT* 0.5% 0.5 oz TUBE TOPICAL SCH (19:53)
[2019-10-10] MEDS: Diazepam TAB(*) 5 MG PO SCH ×2 (00:47→08:09)
[2019-10-10 06:50] LABS: BUN/Creatinine Ratio 19.2 (8-20); Calcium 8.8 mg/dL (8.6-10.3); EGFR African American 196.8 (>60); EGFR Non-African American 162.7 (>60); Magnesium 1.8 mg/dL (1.9-2.7); Phosphorus 3.6 mg/dL (2.5-5.0); Potassium 3.7 mmol/L (3.5-5.0)
[2019-10-10] MEDS: Potassium Chlor TAB* 20 MEQ TAB.ER PO SCH ×2 (08:08→21:13)
[2019-10-10] MEDS: Thiamine TAB* 100 MG TAB PO SCH (08:08)
[2019-10-10] MEDS: Magnesium Oxide TAB* 400 MG PO SCH ×3 (08:08→21:11)
[2019-10-10] MEDS: Lactobacillus Acidophilus* 1 TAB PO SCH ×2 (08:09→21:11)
[2019-10-10] MEDS: Multivitamins/Minerals TAB PO SCH (08:09)
[2019-10-10] MEDS: RiFAXimin* 550 MG TAB PO SCH ×2 (08:10→21:11)
[2019-10-10] MEDS: PRIMIDONE 250 MG PO SCH ×3 (08:11→21:15)
[2019-10-10] MEDS: amLODIPine TAB* 5 MG PO SCH (08:12)
[2019-10-10] MEDS: Cyanocobalamin TAB* 500 MCG PO SCH (08:12)
[2019-10-10] MEDS: ACAMPROSATE 333 MG PO SCH ×3 (08:12→21:14)
[2019-10-10] MEDS: Folic Acid TAB* 1 MG PO SCH (08:12)
[2019-10-10] MEDS: Acetaminophen TAB* 325 MG PO PRN ×2 (08:13→13:51)
[2019-10-10] MEDS: Erythromycin OPTH OINT* APPLIC OINT BOTH EYES SCH ×3 (08:13→21:14)
[2019-10-10] MEDS: Polyethylene Glycol 3350* 17 GM PACKET PO SCH ×2 (14:09→21:13)
[2019-10-10] MEDS ORDERED: Diazepam TAB(*) 5 MG PO ONE (17:00)
[2019-10-10] MEDS: Bacitracin OINTMENT* 0.5% 0.5 oz TUBE TOPICAL SCH (18:01)
--- NOTE | 2019-10-10 18:43 | PN ---
Subjective Date of Service: 10/10/19 Interval History: HOSPITALIST PROGRESS NOTE Patient seen and examined at bedside. Care reviewed and d/w Charu Tsai RN. He feels improved today, states he was able to walk with PT and feels steadier on his feet. Family History: Unchanged from Admission Social History: Unchanged from Admission Past Medical History: Unchanged from Admission Objective Active Medications: Acamprosate (Campral (Nf)) 666 mg PO TID [facility]; Protocol Last Admin: 10/10/19 12:54 Dose: 666 mg Acetaminophen (Tylenol Tab*) 650 mg PO Q4H PRN PRN Reason: PAIN - MILD Last Admin: 10/10/19 13:51 Dose: 650 mg Amlodipine Besylate (Norvasc Tab*) 10 mg PO DAILY [facility] Last Admin: 10/10/19 08:12 Dose: 10 mg Bacitracin (Bacitracin Ointment*) 1 applic TOPICAL DAILY@1900 [facility] Last Admin: 10/10/19 18:01 Dose: 1 applic Cyanocobalamin (Vitamin B12 Tab*) 1,000 mcg PO DAILY [facility] Last Admin: 10/10/19 08:12 Dose: 1,000 mcg Erythromycin (Erythromycin Opth Oint*) 1 applic BOTH EYES TID [facility] Last Admin: 10/10/19 13:52 Dose: 1 applic Folic Acid (Folvite Tab*) 1 mg PO DAILY [facility] Last Admin: 10/10/19 08:12 Dose: 1 mg Lactobacillus Rhamnosus (Lactobacillus Acidophilus*) 1 tab PO BID [facility] Last Admin: 10/10/19 08:09 Dose: 1 tab Magnesium Oxide (Magox 400 Tab*) 400 mg PO TID [facility] Last Admin: 10/10/19 12:54 Dose: 400 mg Mirtazapine (Remeron Tab*) 7.5 mg PO BEDTIME [facility] Last Admin: 10/09/19 19:52 Dose: 7.5 mg Multivitamins/Minerals (Theragran/Minerals Tab*) 1 tab PO DAILY [facility] Last Admin: 10/10/19 08:09 Dose: 1 tab Oxazepam (Serax Cap*) 30 mg PO Q4H PRN PRN Reason: WAM greater than 12 Stop: 10/10/19 23:59 Last Admin: 10/08/19 08:44 Dose: 30 mg Polyethylene Glycol/Electrolytes (Miralax (17 Gm Dose [place])) 17 gm PO 0800,2100 [facility] Last Admin: 10/10/19 14:09 Dose: 17 gm Potassium Chloride (Klor Con Er Tab*) 20 meq PO BID [facility] Last Admin: 10/10/19 08:08 Dose: 20 meq Primidone (Mysoline 250 Mg Tab (*)) 250 mg PO TID [facility] Last Admin: 10/10/19 12:54 Dose: 250 mg Propranolol HCl (Inderal 10 Mg Tab) 20 mg PO TID [facility] Last Admin: 10/10/19 12:54 Dose: 20 mg Rifaximin (Xifaxan*) 550 mg PO BID [facility] Last Admin: 10/10/19 08:10 Dose: 550 mg Thiamine HCl (Vitamin B-1 Tab*) 100 mg PO DAILY [facility] Last Admin: 10/10/19 08:08 Dose: 100 mg Vital Signs - 8 hr 10/10/19 10/10/19 10/10/19 11:30 15:37 18:00 Temperature 98.4 F 98.2 F Pulse Rate 82 76 Respiratory 18 16 18 Rate Blood Pressure 101/69 113/72 (mmHg) O2 Sat by Pulse 98 96 Oximetry Oxygen Devices in Use Now: None Appearance: Pleasant gentleman sitting up in a chair in [facility]. Eyes: No Scleral Icterus, - - Bilateral periorbital ecchymosis Ears/Nose/Mouth/Throat: Mucous Membranes Moist Neck: Trachea Midline Respiratory: Symmetrical Chest Expansion and Respiratory Effort, Clear to Auscultation Cardiovascular: RRR - Normal S1 and S2 Abdominal: NL Sounds; No Tenderness; No Distention Neurological: Alert and Oriented x 3, NL Muscle Strength and Tone Result Diagrams: 10/09/19 06:20 10/10/19 06:05 Assess/Plan/Problems-Billing Assessment: Mr Winchester is a 59 yo M with PMH of HTN, alcohol abuse, essential tremors, hypogonadism, who presented to ED after a fall secondary to ETOH intoxication, complicated by facial trauma and ETOH withdrawal. - Patient Problems (1) Alcohol withdrawal delirium Comment: - On thiamine po , vitamin B12, folate, mag supplement - Continue Diazepam taper. - Not interested in substance abuse inpatient or outpatient therapy. (2) Transaminitis Comment: - Secondary to ETOH intake. - LFTs continue to trend down. (3) Essential tremor Comment: - Continue Primidone and propranolol. (4) HTN (hypertension) Comment: - Well controlled - continue amlodipine. (5) Physical deconditioning Comment: - PT recommended STR - he has made progress, but would still benefit of rehab. (6) DVT prophylaxis Comment: - SCDs only (7) Full code status Status and Disposition: Inpatient. STR vs Home with outpatient PT on discharge.
[2019-10-10] MEDS: Mirtazapine TAB* 15 MG PO SCH (21:11)
[2019-10-11 06:40] LABS: BUN/Creatinine Ratio 18.3 (8-20); Calcium 9.1 mg/dL (8.6-10.3); EGFR African American 166.9 (>60); EGFR Non-African American 137.9 (>60); Magnesium 1.8 mg/dL (1.9-2.7); Potassium 4.1 mmol/L (3.5-5.0)
[2019-10-11] MEDS ORDERED: Magnesium Sulfate 2 GM IV* 2 GM/50 ML BAG IVPB ONE (07:10)
[2019-10-11] MEDS ORDERED: Diazepam TAB(*) 5 MG PO ONE (08:00)
[2019-10-11] MEDS: ACAMPROSATE 333 MG PO SCH ×3 (08:09→20:14)
[2019-10-11] MEDS: Polyethylene Glycol 3350* 17 GM PACKET PO SCH ×2 (08:09→20:10)
[2019-10-11] MEDS: PRIMIDONE 250 MG PO SCH ×3 (08:10→20:14)
[2019-10-11] MEDS: Cyanocobalamin TAB* 500 MCG PO SCH (08:17)
[2019-10-11] MEDS: Lactobacillus Acidophilus* 1 TAB PO SCH ×2 (08:17→20:10)
[2019-10-11] MEDS: Magnesium Oxide TAB* 400 MG PO SCH ×3 (08:18→20:11)
[2019-10-11] MEDS: Folic Acid TAB* 1 MG PO SCH (08:18)
[2019-10-11] MEDS: amLODIPine TAB* 5 MG PO SCH (08:18)
[2019-10-11] MEDS: Thiamine TAB* 100 MG TAB PO SCH (08:19)
[2019-10-11] MEDS: Erythromycin OPTH OINT* APPLIC OINT BOTH EYES SCH ×3 (08:21→20:12)
[2019-10-11] MEDS: RiFAXimin* 550 MG TAB PO SCH ×2 (08:21→20:10)
[2019-10-11] MEDS: Potassium Chlor TAB* 20 MEQ TAB.ER PO SCH ×2 (08:21→20:12)
[2019-10-11] MEDS: Multivitamins/Minerals TAB PO SCH (08:21)
[2019-10-11] MEDS: Acetaminophen TAB* 325 MG PO PRN ×2 (09:36→20:11)
--- NOTE | 2019-10-11 17:51 | PN ---
Subjective Date of Service: 10/11/19 Interval History: HOSPITALIST PROGRESS NOTE Patient seen and examined at bedside. Care reviewed and d/w Lida Connors RN. He feels better today. Denies pain, feels steadier on his feet. Family History: Unchanged from Admission Social History: Unchanged from Admission Past Medical History: Unchanged from Admission Objective Active Medications: Acamprosate (Campral (Nf)) 666 mg PO TID [facility]; Protocol Last Admin: 10/11/19 14:52 Dose: 666 mg Acetaminophen (Tylenol Tab*) 650 mg PO Q4H PRN PRN Reason: PAIN - MILD Last Admin: 10/11/19 09:36 Dose: 650 mg Amlodipine Besylate (Norvasc Tab*) 10 mg PO DAILY [facility] Last Admin: 10/11/19 08:18 Dose: 10 mg Bacitracin (Bacitracin Ointment*) 1 applic TOPICAL DAILY@1900 [facility] Last Admin: 10/10/19 18:01 Dose: 1 applic Cyanocobalamin (Vitamin B12 Tab*) 1,000 mcg PO DAILY [facility] Last Admin: 10/11/19 08:17 Dose: 1,000 mcg Docusate Sodium (Colace Cap*) 100 mg PO BID [facility] Erythromycin (Erythromycin Opth Oint*) 1 applic BOTH EYES TID [facility] Last Admin: 10/11/19 14:53 Dose: 1 applic Folic Acid (Folvite Tab*) 1 mg PO DAILY [facility] Last Admin: 10/11/19 08:18 Dose: 1 mg Lactobacillus Rhamnosus (Lactobacillus Acidophilus*) 1 tab PO BID [facility] Last Admin: 10/11/19 08:17 Dose: 1 tab Magnesium Oxide (Magox 400 Tab*) 400 mg PO TID [facility] Last Admin: 10/11/19 14:54 Dose: 400 mg Mirtazapine (Remeron Tab*) 7.5 mg PO BEDTIME [facility] Last Admin: 10/10/19 21:11 Dose: 7.5 mg Multivitamins/Minerals (Theragran/Minerals Tab*) 1 tab PO DAILY [facility] Last Admin: 10/11/19 08:21 Dose: 1 tab Polyethylene Glycol/Electrolytes (Miralax (17 Gm Dose [place])) 17 gm PO 0800,2100 [facility] Last Admin: 10/11/19 08:09 Dose: 17 gm Potassium Chloride (Klor Con Er Tab*) 20 meq PO BID [facility] Last Admin: 10/11/19 08:21 Dose: 20 meq Primidone (Mysoline 250 Mg Tab (*)) 250 mg PO TID [facility] Last Admin: 10/11/19 14:54 Dose: 250 mg Propranolol HCl (Inderal 10 Mg Tab) 20 mg PO TID [facility] Last Admin: 10/11/19 14:56 Dose: 20 mg Rifaximin (Xifaxan*) 550 mg PO BID [facility] Last Admin: 10/11/19 08:21 Dose: 550 mg Senna (Senokot 8.6 Mg Tab*) 2 tab PO BEDTIME [facility] Thiamine HCl (Vitamin B-1 Tab*) 100 mg PO DAILY [facility] Last Admin: 10/11/19 08:19 Dose: 100 mg Vital Signs - 8 hr 10/11/19 10/11/19 10/11/19 10:30 11:20 15:24 Temperature 98.2 F 98.2 F Pulse Rate 73 72 Respiratory 17 18 18 Rate Blood Pressure 134/76 134/72 (mmHg) O2 Sat by Pulse 98 98 Oximetry Oxygen Devices in Use Now: None Appearance: Pleasant gentleman sitting up in bed in [facility] Eyes: No Scleral Icterus, - - Bilateral periorbital ecchymosis Ears/Nose/Mouth/Throat: Mucous Membranes Moist Neck: Trachea Midline Respiratory: Symmetrical Chest Expansion and Respiratory Effort, Clear to Auscultation Cardiovascular: RRR - Normal S1 and S2 Extremities: No Edema Neurological: Alert and Oriented x 3, NL Muscle Strength and Tone Result Diagrams: 10/09/19 06:20 10/11/19 06:15 Assess/Plan/Problems-Billing Assessment: Mr Winchester is a 59 yo M with PMH of HTN, alcohol abuse, essential tremors, hypogonadism, who presented to ED after a fall secondary to ETOH intoxication, complicated by facial trauma and ETOH withdrawal. - Patient Problems (1) Alcohol withdrawal delirium Comment: - On thiamine po , vitamin B12, folate, mag supplement - Completed Diazepam taper. - Not interested in substance abuse inpatient or outpatient therapy. (2) Transaminitis Comment: - Secondary to ETOH intake. - LFTs continue to trend down. (3) Essential tremor Comment: - Continue Primidone and propranolol. (4) HTN (hypertension) Comment: - Well controlled - continue amlodipine. (5) Physical deconditioning Comment: - PT recommended STR - he has made progress, but would still benefit of rehab. We had a lengthy conversation about his discharge plan again today. He understands he's still not back to his baseline, but he's very clear he'll not go to [facility]. He feels well enought to go home tomorrow with VNS and outpatient PT. I explained my concerns that if he drinks again he'll be at an even higher risk of bleeding and sustaining a serious injury, including the possibility of head trauma with intracranial bleed that could cause permanent disability or . I believe the patient has the capacity to make decisions, even tough I don't agree with them. He understood the information given, and tells me his plan is to have a friend take him home tomorrow. He'll have PT as outpatient and get stronger so he can move to [place] in the near future, where he'll live with a physician friend who'll assist him trough his sobriety efforts. While in [place], he'll continue to see his counselor. (6) DVT prophylaxis Comment: - SCDs only (7) Full code status Status and Disposition: Inpatient. Anticipate d/c in AM.
[2019-10-11] MEDS: Bacitracin OINTMENT* 0.5% 0.5 oz TUBE TOPICAL SCH (18:10)
[2019-10-11] MEDS: Docusate CAP* 100 MG PO SCH (20:10)
[2019-10-11] MEDS: Mirtazapine TAB* 15 MG PO SCH (20:11)
[2019-10-11] MEDS ORDERED: Senna TAB 8.6 mg* TAB PO SCH (21:00)
[2019-10-12] MEDS: PRIMIDONE 250 MG PO SCH ×2 (09:58→13:33)
[2019-10-12] MEDS: Lactobacillus Acidophilus* 1 TAB PO SCH (09:58)
[2019-10-12] MEDS: Erythromycin OPTH OINT* APPLIC OINT BOTH EYES SCH ×2 (09:58→13:33)
[2019-10-12] MEDS: Cyanocobalamin TAB* 500 MCG PO SCH (09:58)
[2019-10-12] MEDS: Multivitamins/Minerals TAB PO SCH (09:58)
[2019-10-12] MEDS: Potassium Chlor TAB* 20 MEQ TAB.ER PO SCH (09:58)
[2019-10-12] MEDS: amLODIPine TAB* 5 MG PO SCH (09:58)
[2019-10-12] MEDS: Magnesium Oxide TAB* 400 MG PO SCH ×2 (09:59→13:33)
[2019-10-12] MEDS: Acetaminophen TAB* 325 MG PO PRN (09:59)
[2019-10-12] MEDS: Folic Acid TAB* 1 MG PO SCH (09:59)
[2019-10-12] MEDS: Thiamine TAB* 100 MG TAB PO SCH (09:59)
[2019-10-12] MEDS: ACAMPROSATE 333 MG PO SCH ×2 (09:59→13:33)
[2019-10-12] MEDS: RiFAXimin* 550 MG TAB PO SCH (09:59)
[2019-10-12] MEDS: Polyethylene Glycol 3350* 17 GM PACKET PO SCH (10:16)
[2019-10-12] MEDS: Docusate CAP* 100 MG PO SCH (10:16)
[2019-10-12 12:21] VITALS: BP 117/76
--- NOTE | 2019-10-14 01:56 | DS ---
CC: Dr. Hartley, primary care provider DISCHARGE SUMMARY: DATE OF ADMISSION: 10/05/19 DATE OF DISCHARGE: 10/12/19 DISCHARGE DIAGNOSES: 1. Alcohol withdrawal. 2. Transaminitis elevation secondary to alcohol abuse. 3. Status post fall with facial trauma. SECONDARY DIAGNOSES: 1. Hypertension. 2. Alcohol abuse. 3. Essential tremors. 4. Hypogonadism. MEDICATION LIST: 1. Acamprosate 666 mg p.o. t.i.d. 2. Acetaminophen 600 mg p.o. q.4 hours p.r.n. pain or fever. 3. Amlodipine 10 mg p.o. daily. 4. Vitamin B12 1000 mcg p.o. daily. 5. Folic acid 800 mcg p.o. daily. 6. Labetalol 100 mg p.o. b.i.d. 7. Probiotic 1 tablet p.o. b.i.d. 8. Lidoderm patch 5% topical daily. 9. Loteprednol 1 drop to both eyes daily. 10. Magnesium oxide 400 mg p.o. b.i.d. 11. Mirtazapine 7.5 mg p.o. at bedtime. 12. Multivitamin 1 tablet p.o. daily. 13. Primidone 260 mg p.o. t.i.d. 14. Propranolol 20 mg p.o. 4 times a day as needed for anxiety and tremors. 15. Rifaximin 550 mg p.o. b.i.d. 16. Cialis 5 mg p.o. every 36 hours as needed for erectile dysfunction. 17. Testosterone 1 mL intramuscular weekly. 18. Thiamine 100 mg p.o. daily. Lactulose was decreased to 30 mg p.o. daily. New Medications: 1. Bacitracin ointment topical daily to eyebrow abrasion. 2. Erythromycin ointment to both eyes t.i.d. for 4 more days. HOSPITAL COURSE: Mr. Winchester is a 59-year-old male with past medical history as stated above that presented to the emergency room after a fall. The patient drank, was intoxicated and when he tried to walk from the car across the street to his apartment, he slipped on ice and fell hitting his head. His initial alcohol level in the emergency room was 407 and the hospitalist service was consulted for admission. As part of his evaluation, the patient had a CT of the brain without contrast that showed left periorbital and left frontal and temporal scalp contusions and additional right facial and right frontal scalp contusion and additional possible right parietal scalp contusion. There is stable age-related diffuse cerebral volume loss and chronic microvascular ischemic disease and no acute intracranial pathology. CT of the cervical spine showed no acute cervical spine fracture or other acute traumatic CT pathology. Maxillofacial CT showed bilateral facial contusion and left periorbital, frontotemporal scalp contusion with no acute maxillofacial fracture. The patient was started on a WAM protocol as well as diazepam taper. He had improvement of his withdrawal and was found to be deconditioned. Initially, Physical Therapy recommended subacute rehab, but the patient declined and he continued to make progress. On the day of discharge, the patient was feeling much better. We talked once again about subacute rehab and the patient felt safe to go home. He has made significant progress and we discussed his options , risks, and benefits, especially if he drinks again and the increased risk of falling and possibility of intracranial bleed causing permanent disability or . The patient was able to understand the information, asked pertinent questions and I believe he has the capacity to make decisions, even though I do not agree with them. His plan is to go home with his friend and continue to follow with his counselor as outpatient. He is not interested in any other form of alcohol treatment and his long-term plan is to move to [place] to live with a friend , who is a physician and would help him with his sobriety efforts. The patient states that he is still using the Campral, but has not used the Antabuse any more, so this has been removed from his list. He was also not taking his lactulose because of frequent diarrhea. So, we cut down his dose to 30 mL once a day in combination with rifaximin to see if he can be compliant with that dose. He had no complaints at the time of the discharge. PHYSICAL EXAMINATION: Vital Signs: Temperature 97.7, heart rate is 73, respiratory rate is 18, oxygen saturation 98% on room air, blood pressure is 117 /76. General: The patient is a middle-aged gentleman that appears older than stated age, sitting up in the recliner in no acute distress. HEENT: Pupils are equal. The patient has bilateral periorbital ecchymosis. CVS: Normal S1 and S2. Regular rate and rhythm. Chest: Breath sounds bilaterally with no added sounds. Abdomen: Soft. Bowel sounds present. Extremities: No edema. Neuro: He is alert, awake, and oriented x3. Able to move all 4 extremities. Face is symmetric. Sensation is preserved. DIET: Regular diet. ACTIVITIES: As tolerated. DISPOSITION: To home. STATUS IN THE HOSPITAL: Inpatient. CONDITION UPON DISCHARGE: Fair. The patient was extensively counseled about the need to quit drinking. He understands that if he continues to drink, he will . He is at high risk for falls when intoxicated and subsequent trauma including intracranial bleed. The patient verbalized understanding of the recommendations, but it is unclear to me how committed he is to his sobriety at this time. Please keep in mind that this is a summarized version of this patient's hospital stay. If you need more information, please feel free to call me at or please obtain the full medical records. Approximately 45 minutes was spent to complete this discharge. [id number]/[facility] #: [id number] [place]
== END 2019-10-12 14:40 | disposition home health service (06) | DRG 775 ==
LOC: ED 20:31 → MED 10-06 09:15
PROVIDERS: ADMIT Internal Medicine; ATTEND Internal Medicine
DX: F10.231 Alcohol dependence with withdrawal delirium (principal); R74.0 Nonspecific elevation of levels of transaminase and lactic acid dehydrogenase [LDH]; I10 Essential (primary) hypertension; G25.0 Essential tremor; F10.221 Alcohol dependence with intoxication delirium; W00.0XXA Fall on same level due to ice and snow, initial encounter; S05.12XA Contusion of eyeball and orbital tissues, left eye, initial encounter; S00.03XA Contusion of scalp, initial encounter; S00.83XA Contusion of other part of head, initial encounter; Y90.8 Blood alcohol level of 240 mg/100 ml or more; E29.1 Testicular hypofunction; D69.6 Thrombocytopenia, unspecified; D72.819 Decreased white blood cell count, unspecified; K70.10 Alcoholic hepatitis without ascites; E87.6 Hypokalemia; H10.9 Unspecified conjunctivitis; K86.89 Other specified diseases of pancreas; Z79.899 Other long term (current) drug therapy; Y92.410 Unspecified street and highway as the place of occurrence of the external cause; Z88.0 Allergy status to penicillin; Z28.21 Immunization not carried out because of patient refusal
CPT/HCPCS: 36415; 70450; 70486; 72125; 80048; 80053; 80076; 80320; 81003; 81015; 82550; 82607; 82746; 83605; 83690; 83735; 84100; 85025; 85610; 90471; 90715; 96372; 99285; A9270-GY; G0480; J2060; J3411; J3475

== ENCOUNTER 2020-07-05 05:51 | Inpatient (IN) ==
[2020-07-05] MEDS ORDERED: NS 0.9% 1000 ml BAG 1,000 ML IV ONE (06:08)
[2020-07-05] MEDS ORDERED: Thiamine 100 MG/ML 2 ml VIAL 100 MG, Folic Acid 1 MG, Multiple Vitamin IV ADULT 10 ML i... IV ONE (06:45)
[2020-07-05 06:46] LABS: INR 1.2 (0.82-1.09)
[2020-07-05] MEDS ORDERED: Lorazepam PYXIS KEY PRN (06:47)
[2020-07-05 06:54] LABS: ABS Lymphocytes 0.3 10^3/ul (1.0-4.8); ABS Monocytes 0.9 10^3/ul (0-0.8); ABS Neutrophils 5.8 10^3/ul (1.5-7.7); Hematocrit 33 % (42-52); Hemoglobin 11.3 g/dL (14.0-18.0); Lymphocyte % 4.4 %; Mean Corpuscular HGB Conc 34 g/dL (31-36); Mean Corpuscular Hemoglobin 35 pg (27-31); Mean Corpuscular Volume 104 fL (80-94); Mean Platelet Volume 8.4 fL (7.4-10.4); Nucleated Red Blood Cells % 0.1; Platelet Count 38 10^3/uL (150-450); Red Blood Count 3.23 10^6 /uL (4.18-5.48); Red Cell Distribution Width 16 % (10-15); White Blood Count 7.1 10^3/uL (3.5-10.8)
[2020-07-05] MEDS ORDERED: Lorazepam PYXIS KEY ONE ×2 (06:54→08:36)
[2020-07-05] MEDS ORDERED: LORazepam 2 mg VIAL 1 ml ONE ×2 (06:55→08:38)
[2020-07-05 06:56] LABS: Alcohol, S 12 mg/dL (<10)
[2020-07-05 06:57] LABS: Urine Appearance Clear; Urine Bilirubin Negative (Negative); Urine Blood 1+ (Negative); Urine Color Yellow; Urine Glucose 1+(50 mg/dL) (Negative); Urine Ketones 1+ (Negative); Urine Nitrite Negative (Negative); Urine Protein 1+(30 mg/dL) (Negative); Urine Urobilinogen Negative (Negative)
[2020-07-05 06:57] LABS: ALT 48 U/L (7-52); AST 188 U/L (13-39); Albumin 3.7 g/dL (3.2-5.2); Albumin/Globulin Ratio 1.2 (1-3); Alkaline Phosphatase 458 U/L (34-104); Blood Urea Nitrogen 5 mg/dL (6-24); C Reactive Protein 4.19 mg/L (<8.01); CO2 Carbon Dioxide 28 mmol/L (22-32); Chloride 94 mmol/L (101-111); EGFR African American 205.9 (>60); EGFR Non-African American 170.2 (>60); Glucose 146 mg/dL (70-100); Magnesium 1.5 mg/dL (1.9-2.7); Sodium 140 mmol/L (135-145); Total Protein 6.7 g/dL (6.4-8.9)
[2020-07-05] MEDS ORDERED: Magnesium Sulf 4 GM/100 ML IV 4,000 MG/100 ML BAG IVPB ONE (07:00)
[2020-07-05] MEDS ORDERED: LORazepam 2 mg VIAL 1 ml IV PUSH SCH (07:00)
[2020-07-05] MEDS: LORazepam 2 mg VIAL 1 ml IV PUSH ONE ×2 (07:00→08:45)
[2020-07-05 07:12] LABS: TSH Ultra Thyroid Stim Horm 1.41 mcIU/mL (0.34-5.60)
[2020-07-05 07:22] LABS: Anion Gap 18 mmol/L (2-11); Potassium 2.6 mmol/L (3.5-5.0)
[2020-07-05] MEDS ORDERED: Al Hydrox/Mg Hydrox/Simet LIQ 30 ML UDC PO PRN (07:51)
[2020-07-05] MEDS ORDERED: Magnesium Hydroxide LIQ 30 ML UDC PO PRN (07:51)
[2020-07-05] MEDS ORDERED: NS 0.9% w/ 40 Meq KCL 1000 ML 1,000 ML IV SCH (08:00)
[2020-07-05 08:04] LABS: Urine Bacteria Absent (Absent); Urine Red Blood Cell Trace(0-2/hpf) (Absent); Urine White Blood Cell Trace(0-5/hpf) (Absent)
[2020-07-05 09:45] LABS: Creatine Kinase 194 U/L (10-223)
[2020-07-05] MEDS: Multivitamins/Minerals TAB PO SCH (10:23)
[2020-07-05] MEDS: KCL 10 MEQ/50 ML IVPREMIX 10 MEQ/50 ML BAG IV SCH ×4 (12:40→16:34)
[2020-07-05 12:56] LABS: BUN/Creatinine Ratio 14.7 (8-20); Blood Urea Nitrogen 5 mg/dL (6-24); CO2 Carbon Dioxide 31 mmol/L (22-32); Calcium 8.3 mg/dL (8.6-10.3); Chloride 98 mmol/L (101-111); EGFR African American 321.4 (>60); EGFR Non-African American 265.6 (>60); Glucose 99 mg/dL (70-100); Sodium 138 mmol/L (135-145)
[2020-07-05 13:03] LABS: Anion Gap 9 mmol/L (2-11); Potassium 2.7 mmol/L (3.5-5.0)
[2020-07-05 13:04] LABS: Troponin I 0.26 ng/mL (<0.03)
[2020-07-05 18:04] LABS: Troponin I 0.17 ng/mL (<0.03)
[2020-07-06 06:08] LABS: ABS Lymphocytes 0.6 10^3/ul (1.0-4.8); ABS Neutrophils 4.8 10^3/ul (1.5-7.7); Eosinophil % 0.6 %; Hematocrit 34 % (42-52); Hemoglobin 11.6 g/dL (14.0-18.0); Lymphocyte % 9.9 %; Mean Corpuscular HGB Conc 34 g/dL (31-36); Mean Corpuscular Hemoglobin 35 pg (27-31); Mean Corpuscular Volume 102 fL (80-94); Mean Platelet Volume 10.3 fL (7.4-10.4); Platelet Count 47 10^3/uL (150-450); Red Blood Count 3.36 10^6 /uL (4.18-5.48); Red Cell Distribution Width 15 % (10-15); White Blood Count 6.5 10^3/uL (3.5-10.8)
[2020-07-06 06:10] LABS: Albumin 3.5 g/dL (3.2-5.2); Albumin/Globulin Ratio 1.2 (1-3); BUN/Creatinine Ratio 10.3 (8-20); EGFR African American 274.3 (>60); EGFR Non-African American 226.7 (>60); Globulin 2.9 g/dL (2-4); Magnesium 1.6 mg/dL (1.9-2.7); Potassium 3.4 mmol/L (3.5-5.0); Total Bilirubin 2.6 mg/dL (0.2-1.0); Total Protein 6.4 g/dL (6.4-8.9)
[2020-07-06] MEDS ORDERED: Magnesium Sulfate 2 gm BAG 2 GM/50 ML BAG IVPB ONE (09:56)
[2020-07-06] MEDS ORDERED: NS 0.9% w/ 40 Meq KCL 1000 ML 1,000 ML IV SCH (10:00)
[2020-07-06] MEDS: Multivitamins/Minerals TAB PO SCH (10:18)
[2020-07-07 06:12] LABS: ABS Eosinophils 0.1 10^3/ul (0-0.6); ABS Lymphocytes 0.7 10^3/ul (1.0-4.8); ABS Neutrophils 3.2 10^3/ul (1.5-7.7); Eosinophil % 1.9 %; Hematocrit 33 % (42-52); Hemoglobin 11.3 g/dL (14.0-18.0); Lymphocyte % 13.7 %; Mean Corpuscular HGB Conc 34 g/dL (31-36); Mean Corpuscular Hemoglobin 35 pg (27-31); Mean Corpuscular Volume 103 fL (80-94); Mean Platelet Volume 9.4 fL (7.4-10.4); Nucleated Red Blood Cells % 0.1; Platelet Count 58 10^3/uL (150-450); Red Blood Count 3.23 10^6 /uL (4.18-5.48); Red Cell Distribution Width 15 % (10-15); White Blood Count 5.1 10^3/uL (3.5-10.8)
[2020-07-07 06:20] LABS: BUN/Creatinine Ratio 29.2 (8-20); Calcium 8.6 mg/dL (8.6-10.3); EGFR African American 215.9 (>60); EGFR Non-African American 178.4 (>60); Potassium 3.4 mmol/L (3.5-5.0)
[2020-07-07 06:58] LABS: Magnesium 1.6 mg/dL (1.9-2.7)
[2020-07-07] MEDS ORDERED: Magnesium Sulfate 2 gm BAG 2 GM/50 ML BAG IVPB ONE (08:35)
[2020-07-07] MEDS ORDERED: Potassium Chlor 20 meq TAB.ER PO SCH (09:00)
[2020-07-07 09:44] LABS: Albumin 3.2 g/dL (3.2-5.2); Albumin/Globulin Ratio 1.2 (1-3); Globulin 2.6 g/dL (2-4); Total Protein 5.8 g/dL (6.4-8.9)
[2020-07-07] MEDS: Potassium Chlor 20 meq TAB.ER PO SCH (10:07)
[2020-07-07] MEDS: Multivitamins/Minerals TAB PO SCH (10:07)
[2020-07-08] MEDS: Multivitamins/Minerals TAB PO SCH (08:36)
[2020-07-08] MEDS: Potassium Chlor 20 meq TAB.ER PO SCH (08:48)
[2020-07-08 09:02] LABS: ABS Eosinophils 0.1 10^3/ul (0-0.6); ABS Lymphocytes 0.6 10^3/ul (1.0-4.8); ABS Monocytes 0.9 10^3/ul (0-0.8); ABS Neutrophils 2.8 10^3/ul (1.5-7.7); Eosinophil % 2.7 %; Hematocrit 34 % (42-52); Hemoglobin 11.4 g/dL (14.0-18.0); Lymphocyte % 12.6 %; Mean Corpuscular HGB Conc 33 g/dL (31-36); Mean Corpuscular Hemoglobin 35 pg (27-31); Mean Corpuscular Volume 106 fL (80-94); Mean Platelet Volume 8.7 fL (7.4-10.4); Platelet Count 93 10^3/uL (150-450); Red Blood Count 3.22 10^6 /uL (4.18-5.48); Red Cell Distribution Width 15 % (10-15); White Blood Count 4.4 10^3/uL (3.5-10.8)
[2020-07-08 09:35] LABS: Albumin 3.1 g/dL (3.2-5.2); Calcium 8.7 mg/dL (8.6-10.3); Total Bilirubin 1.4 mg/dL (0.2-1.0)
[2020-07-08 09:41] LABS: Albumin/Globulin Ratio 1.2 (1-3); BUN/Creatinine Ratio 34.9 (8-20); EGFR African American 245.1 (>60); EGFR Non-African American 202.6 (>60); Globulin 2.5 g/dL (2-4); Total Protein 5.6 g/dL (6.4-8.9)
[2020-07-08 10:48] LABS: Magnesium 1.6 mg/dL (1.9-2.7)
[2020-07-08] MEDS ORDERED: Magnesium Sulf 4 GM/100 ML IV 4,000 MG/100 ML BAG IVPB ONE (14:00)
[2020-07-09] MEDS: Potassium Chlor 20 meq TAB.ER PO SCH (09:03)
[2020-07-09] MEDS: Multivitamins/Minerals TAB PO SCH (09:06)
[2020-07-09 09:13] LABS: ABS Eosinophils 0.1 10^3/ul (0-0.6); ABS Lymphocytes 0.7 10^3/ul (1.0-4.8); ABS Monocytes 1.2 10^3/ul (0-0.8); ABS Neutrophils 3.1 10^3/ul (1.5-7.7); Hematocrit 34 % (42-52); Hemoglobin 11.6 g/dL (14.0-18.0); Lymphocyte % 13.6 %; Mean Corpuscular HGB Conc 34 g/dL (31-36); Mean Corpuscular Hemoglobin 36 pg (27-31); Mean Corpuscular Volume 106 fL (80-94); Mean Platelet Volume 8.5 fL (7.4-10.4); Platelet Count 118 10^3/uL (150-450); Red Blood Count 3.24 10^6 /uL (4.18-5.48); Red Cell Distribution Width 16 % (10-15); White Blood Count 5.2 10^3/uL (3.5-10.8)
[2020-07-09 09:17] LABS: Albumin 3.3 g/dL (3.2-5.2); Albumin/Globulin Ratio 1.1 (1-3); BUN/Creatinine Ratio 22.4 (8-20); Calcium 8.6 mg/dL (8.6-10.3); EGFR African American 210.8 (>60); EGFR Non-African American 174.2 (>60); Globulin 3.1 g/dL (2-4); Magnesium 1.8 mg/dL (1.9-2.7); Potassium 4.1 mmol/L (3.5-5.0); Total Bilirubin 1.4 mg/dL (0.2-1.0); Total Protein 6.4 g/dL (6.4-8.9)
[2020-07-09 15:45] VITALS: BP 112/69
== END 2020-07-09 15:30 | disposition home health service (06) | DRG 775 ==
LOC: ED 05:51 → MEDTELE 07:51
PROVIDERS: ADMIT Internal Medicine; ATTEND Pediatrics

== ENCOUNTER 2020-08-10 10:04 | Inpatient (IN) ==
[2020-08-10] MEDS ORDERED: NS 0.9% 1000 ml BAG 1,000 ML IV ONE ×2 (12:19→13:49)
[2020-08-10] MEDS ORDERED: LORazepam 2 mg VIAL 1 ml IV PUSH ONE ×2 (12:31→14:23)
[2020-08-10] MEDS ORDERED: Lorazepam PYXIS KEY PRN ×2 (12:31→14:23)
[2020-08-10 13:15] LABS: ALT 56 U/L (7-52); AST 229 U/L (13-39); Albumin 3.5 g/dL (3.2-5.2); Albumin/Globulin Ratio 1.2 (1-3); Alkaline Phosphatase 479 U/L (34-104); Anion Gap 17 mmol/L (2-11); BUN/Creatinine Ratio 13.6 (8-20); Blood Urea Nitrogen 6 mg/dL (6-24); CO2 Carbon Dioxide 22 mmol/L (22-32); Calcium 8.6 mg/dL (8.6-10.3); Chloride 102 mmol/L (101-111); EGFR African American 238.7 (>60); EGFR Non-African American 197.2 (>60); Glucose 98 mg/dL (70-100); Magnesium 1.5 mg/dL (1.9-2.7); Potassium 3.4 mmol/L (3.5-5.0); Sodium 141 mmol/L (135-145); Total Protein 6.5 g/dL (6.4-8.9)
[2020-08-10 13:16] LABS: Troponin I 0.01 ng/mL (<0.03)
[2020-08-10 13:16] LABS: Urine Appearance Cloudy; Urine Bilirubin Negative (Negative); Urine Blood 1+ (Negative); Urine Color Amber; Urine Glucose Negative (Negative); Urine Ketones Negative (Negative); Urine Nitrite Positive (Negative); Urine Protein 1+(30 mg/dL) (Negative); Urine Specific Gravity 1.019 (1.010-1.030); Urine Urobilinogen Negative (Negative)
[2020-08-10] MEDS ORDERED: Magnesium Sulfate 2 gm BAG 2 GM/50 ML BAG IVPB ONE (13:20)
[2020-08-10] MEDS ORDERED: Potassium Chlor 20 meq TAB.ER PO ONE (13:21)
[2020-08-10 13:32] LABS: Alcohol, S 97 mg/dL (<10)
[2020-08-10 13:40] LABS: Urine Bacteria 2+ (Absent); Urine Red Blood Cell 3+(>10/hpf) (Absent); Urine White Blood Cell 3+(>20/hpf) (Absent)
[2020-08-10 13:48] LABS: TSH Ultra Thyroid Stim Horm 1.58 mcIU/mL (0.34-5.60)
[2020-08-10] MEDS ORDERED: cefTRIAXone 1 gm/50 mL NS BAG 1 GM/50 ML BAG IV ONE (13:49)
[2020-08-10 13:59] LABS: Vitamin B12 830 pg/mL (180-914)
[2020-08-10 14:06] LABS: Hematocrit 31 % (42-52); Hemoglobin 10.4 g/dL (14.0-18.0); Mean Corpuscular HGB Conc 33 g/dL (31-36); Mean Corpuscular Hemoglobin 34 pg (27-31); Mean Corpuscular Volume 102 fL (80-94); Red Blood Count 3.06 10^6 /uL (4.18-5.48); Red Cell Distribution Width 15 % (10-15); White Blood Count 4.6 10^3/uL (3.5-10.8)
[2020-08-10 14:07] LABS: ABS Lymphocytes 0.6 10^3/ul (1.0-4.8); ABS Monocytes 0.5 10^3/ul (0-0.8); ABS Neutrophils 3.4 10^3/ul (1.5-7.7); Eosinophil % 0.5 %; Lymphocyte % 12.8 %; Nucleated Red Blood Cells % 0.2
[2020-08-10 14:56] LABS: Mean Platelet Volume 8.4 fL (7.4-10.4); Platelet Count 31 10^3/uL (150-450)
[2020-08-10] MEDS ORDERED: Ondansetron 4 mg VIAL 2 MG/ML 2 ml VIAL IV PRN (15:10)
[2020-08-10] MEDS ORDERED: NS 0.9% 1000 ml BAG 1,000 ML IV SCH (15:15)
[2020-08-10 15:35] LABS: Folate > 20.00 ng/mL (>3.99)
[2020-08-10 15:38] LABS: Activated Partial Thrombo Time 30.9 seconds (26.0-38.0); INR 1.03 (0.82-1.09)
[2020-08-10] MEDS: Lactated Ringers 1000 ml BAG 1,000 ML IV SCH (17:47)
[2020-08-10 17:58] LABS: Indirect Bilirubin 0.6 mg/dL (0.3-1.0)
[2020-08-11] MEDS: Lactated Ringers 1000 ml BAG 1,000 ML IV SCH ×2 (01:36→08:50)
[2020-08-11 07:19] LABS: Albumin 3.5 g/dL (3.2-5.2); Albumin/Globulin Ratio 1.2 (1-3); BUN/Creatinine Ratio 9.3 (8-20); Calcium 8.7 mg/dL (8.6-10.3); EGFR African American 245.1 (>60); EGFR Non-African American 202.6 (>60); Magnesium 1.5 mg/dL (1.9-2.7); Total Bilirubin 1.8 mg/dL (0.2-1.0); Total Protein 6.5 g/dL (6.4-8.9)
[2020-08-11 07:20] LABS: INR 1.07 (0.82-1.09)
[2020-08-11] MEDS: Multivitamins/Minerals TAB PO SCH (07:23)
[2020-08-11 07:25] LABS: ABS Lymphocytes 0.6 10^3/ul (1.0-4.8); ABS Monocytes 0.7 10^3/ul (0-0.8); ABS Neutrophils 2.3 10^3/ul (1.5-7.7); Eosinophil % 0.1 %; Hematocrit 33 % (42-52); Hemoglobin 11.2 g/dL (14.0-18.0); Lymphocyte % 15.7 %; Mean Corpuscular HGB Conc 34 g/dL (31-36); Mean Corpuscular Hemoglobin 34 pg (27-31); Mean Corpuscular Volume 101 fL (80-94); Mean Platelet Volume 8.4 fL (7.4-10.4); Nucleated Red Blood Cells % 0.1; Platelet Count 29 10^3/uL (150-450); Red Blood Count 3.26 10^6 /uL (4.18-5.48); Red Cell Distribution Width 15 % (10-15); White Blood Count 3.6 10^3/uL (3.5-10.8)
[2020-08-11 08:17] LABS: Potassium 2.5 mmol/L (3.5-5.0)
[2020-08-11] MEDS ORDERED: Potassium Chlor 20 meq TAB.ER PO ONE (08:26)
[2020-08-11] MEDS ORDERED: Magnesium Sulfate IV 3 GM in NS 0.9% 100 ml BAG 100 ML IVPB ONE (08:27)
[2020-08-11] MEDS: KCL 20 MEQ/100 ML IVPREMIX 20 MEQ/100 ML BAG IV SCH ×3 (08:43→19:41)
[2020-08-11] MEDS: cefTRIAXone 1 gm/50 mL NS BAG 1 GM/50 ML BAG IVPB SCH (13:40)
[2020-08-11] MEDS: NS 0.9% 1000 ml BAG 1,000 ML IV SCH (17:34)
[2020-08-11 20:33] LABS: BUN/Creatinine Ratio 16.3 (8-20); Calcium 8.8 mg/dL (8.6-10.3); EGFR African American 210.8 (>60); EGFR Non-African American 174.2 (>60); Potassium 3.5 mmol/L (3.5-5.0)
[2020-08-11] MEDS: LORazepam 2 mg VIAL 1 ml IV PUSH SCH (23:55)
[2020-08-12] MEDS: LORazepam 2 mg VIAL 1 ml IV PUSH SCH (02:01)
[2020-08-12] MEDS: NS 0.9% 1000 ml BAG 1,000 ML IV SCH ×3 (03:30→20:47)
[2020-08-12 05:40] LABS: Albumin 3.1 g/dL (3.2-5.2); Albumin/Globulin Ratio 1.1 (1-3); BUN/Creatinine Ratio 18.9 (8-20); Calcium 8.3 mg/dL (8.6-10.3); EGFR African American 192.5 (>60); EGFR Non-African American 159.1 (>60); Globulin 2.7 g/dL (2-4); Magnesium 1.9 mg/dL (1.9-2.7); Potassium 3.2 mmol/L (3.5-5.0); Total Bilirubin 1.9 mg/dL (0.2-1.0); Total Protein 5.8 g/dL (6.4-8.9)
[2020-08-12 05:49] LABS: ABS Lymphocytes 0.8 10^3/ul (1.0-4.8); ABS Monocytes 0.9 10^3/ul (0-0.8); ABS Neutrophils 3.4 10^3/ul (1.5-7.7); Eosinophil % 0.6 %; Hematocrit 31 % (42-52); Hemoglobin 10.3 g/dL (14.0-18.0); Mean Corpuscular HGB Conc 34 g/dL (31-36); Mean Corpuscular Hemoglobin 34 pg (27-31); Mean Corpuscular Volume 100 fL (80-94); Mean Platelet Volume 9.8 fL (7.4-10.4); Platelet Count 49 10^3/uL (150-450); Red Blood Count 3.06 10^6 /uL (4.18-5.48); Red Cell Distribution Width 15 % (10-15); White Blood Count 5.1 10^3/uL (3.5-10.8)
[2020-08-12 05:52] LABS: INR 1.17 (0.82-1.09)
[2020-08-12 06:27] LABS: Hepatitis B Surface Antigen Nonreactive (Nonreactive)
[2020-08-12 06:33] LABS: Hepatitis A Ab IgM Negative (Negative); Hepatitis B Core IgM Nonreactive (Nonreactive)
[2020-08-12 06:45] LABS: Hepatitis C Antibody Negative (Negative)
[2020-08-12] MEDS ORDERED: Potassium Chlor 20 meq TAB.ER PO ONE (08:14)
[2020-08-12] MEDS: Multivitamins/Minerals TAB PO SCH (09:24)
[2020-08-12 10:40] LABS: Total Bilirubin 1.9 mg/dL (0.2-1.0)
[2020-08-12] MEDS: cefTRIAXone 1 gm/50 mL NS BAG 1 GM/50 ML BAG IVPB SCH (13:52)
[2020-08-12 15:30] LABS: Phosphorus 2.5 mg/dL (2.5-5.0)
[2020-08-13 05:24] LABS: Hematocrit 29 % (42-52); Hemoglobin 9.6 g/dL (14.0-18.0); Mean Corpuscular HGB Conc 33 g/dL (31-36); Mean Corpuscular Hemoglobin 34 pg (27-31); Mean Corpuscular Volume 102 fL (80-94); Mean Platelet Volume 9.3 fL (7.4-10.4); Platelet Count 61 10^3/uL (150-450); Red Blood Count 2.84 10^6 /uL (4.18-5.48); Red Cell Distribution Width 15 % (10-15); White Blood Count 3.2 10^3/uL (3.5-10.8)
[2020-08-13 05:34] LABS: INR 1.09 (0.82-1.09)
[2020-08-13 05:38] LABS: Albumin 2.9 g/dL (3.2-5.2); Albumin/Globulin Ratio 1.1 (1-3); BUN/Creatinine Ratio 31.7 (8-20); Calcium 7.9 mg/dL (8.6-10.3); EGFR African American 258.9 (>60); Globulin 2.6 g/dL (2-4); Magnesium 1.6 mg/dL (1.9-2.7); Total Bilirubin 1.3 mg/dL (0.2-1.0); Total Protein 5.5 g/dL (6.4-8.9)
[2020-08-13 05:55] LABS: Potassium 3.9 mmol/L (3.5-5.0)
[2020-08-13] MEDS: NS 0.9% 1000 ml BAG 1,000 ML IV SCH ×2 (06:11→20:27)
[2020-08-13] MEDS ORDERED: Magnesium Sulfate IV 3 GM in NS 0.9% 100 ml BAG 100 ML IVPB ONE (08:20)
[2020-08-13] MEDS: Multivitamins/Minerals TAB PO SCH (08:54)
[2020-08-13] MEDS: cefTRIAXone 1 gm/50 mL NS BAG 1 GM/50 ML BAG IVPB SCH (13:54)
[2020-08-14] MEDS: NS 0.9% 1000 ml BAG 1,000 ML IV SCH (06:20)
[2020-08-14 07:03] LABS: Albumin 2.8 g/dL (3.2-5.2); Albumin/Globulin Ratio 1.2 (1-3); BUN/Creatinine Ratio 19.5 (8-20); EGFR African American 258.9 (>60); Globulin 2.3 g/dL (2-4); Magnesium 1.5 mg/dL (1.9-2.7); Potassium 3.4 mmol/L (3.5-5.0); Total Bilirubin 1.1 mg/dL (0.2-1.0); Total Protein 5.1 g/dL (6.4-8.9)
[2020-08-14 07:07] LABS: ABS Eosinophils 0.1 10^3/ul (0-0.6); ABS Lymphocytes 0.5 10^3/ul (1.0-4.8); ABS Monocytes 0.6 10^3/ul (0-0.8); ABS Neutrophils 1.3 10^3/ul (1.5-7.7); Eosinophil % 3.5 %; Hematocrit 29 % (42-52); Hemoglobin 9.3 g/dL (14.0-18.0); Lymphocyte % 20.9 %; Mean Corpuscular HGB Conc 33 g/dL (31-36); Mean Corpuscular Hemoglobin 34 pg (27-31); Mean Corpuscular Volume 104 fL (80-94); Mean Platelet Volume 8.6 fL (7.4-10.4); Platelet Count 84 10^3/uL (150-450); Red Blood Count 2.76 10^6 /uL (4.18-5.48); Red Cell Distribution Width 15 % (10-15); White Blood Count 2.5 10^3/uL (3.5-10.8)
[2020-08-14] MEDS ORDERED: Potassium Chlor 20 meq TAB.ER PO ONE (08:00)
[2020-08-14] MEDS ORDERED: Magnesium Sulfate IV 3 GM in NS 0.9% 100 ml BAG 100 ML IVPB ONE (09:00)
[2020-08-14] MEDS: Multivitamins/Minerals TAB PO SCH (09:15)
[2020-08-14] MEDS: cefTRIAXone 1 gm/50 mL NS BAG 1 GM/50 ML BAG IVPB SCH (13:56)
[2020-08-15 06:16] LABS: ABS Eosinophils 0.1 10^3/ul (0-0.6); ABS Lymphocytes 0.6 10^3/ul (1.0-4.8); ABS Monocytes 0.8 10^3/ul (0-0.8); ABS Neutrophils 1.7 10^3/ul (1.5-7.7); Eosinophil % 2.6 %; Hematocrit 30 % (42-52); Hemoglobin 9.9 g/dL (14.0-18.0); Lymphocyte % 18.2 %; Mean Corpuscular HGB Conc 34 g/dL (31-36); Mean Corpuscular Hemoglobin 34 pg (27-31); Mean Corpuscular Volume 102 fL (80-94); Mean Platelet Volume 8.2 fL (7.4-10.4); Nucleated Red Blood Cells % 0.1; Platelet Count 102 10^3/uL (150-450); Red Blood Count 2.92 10^6 /uL (4.18-5.48); Red Cell Distribution Width 16 % (10-15); White Blood Count 3.2 10^3/uL (3.5-10.8)
[2020-08-15 07:38] LABS: Albumin/Globulin Ratio 1.2 (1-3); BUN/Creatinine Ratio 12.2 (8-20); Calcium 8.1 mg/dL (8.6-10.3); EGFR African American 258.9 (>60); Globulin 2.6 g/dL (2-4); Magnesium 1.5 mg/dL (1.9-2.7); Potassium 3.8 mmol/L (3.5-5.0); Total Bilirubin 1.1 mg/dL (0.2-1.0); Total Protein 5.6 g/dL (6.4-8.9)
[2020-08-15] MEDS ORDERED: Magnesium Sulfate IV 3 GM in NS 0.9% 100 ml BAG 100 ML IVPB ONE (08:00)
[2020-08-15] MEDS: Multivitamins/Minerals TAB PO SCH (09:07)
[2020-08-15 13:40] VITALS: BP 95/69
[2020-08-15] MEDS: cefTRIAXone 1 gm/50 mL NS BAG 1 GM/50 ML BAG IVPB SCH (14:01)
== END 2020-08-15 16:23 | disposition home or self-care (01) | DRG 775 ==
LOC: MEDTELE 10:04 → ED 10:04 → MEDTELE 17:24
PROVIDERS: ADMIT Pediatrics; ATTEND Internal Medicine

== ENCOUNTER 2020-09-09 19:49 | Inpatient (IN) ==
[2020-09-09] MEDS ORDERED: NS 0.9% 1000 ml BAG 2,000 ML IV ONE (20:13)
[2020-09-09] MEDS ORDERED: NS 0.9% 1000 ml BAG 1,000 ML IV ONE (21:16)
[2020-09-09 21:21] LABS: Urine Appearance Clear; Urine Bilirubin Negative (Negative); Urine Blood 1+ (Negative); Urine Color Yellow; Urine Glucose Negative (Negative); Urine Ketones Negative (Negative); Urine Nitrite Negative (Negative); Urine Protein Negative (Negative); Urine Specific Gravity 1.013 (1.010-1.030); Urine Urobilinogen Negative (Negative)
[2020-09-09 21:27] LABS: Hematocrit 28 % (42-52); Hemoglobin 9.4 g/dL (14.0-18.0); Mean Corpuscular HGB Conc 34 g/dL (31-36); Mean Corpuscular Hemoglobin 33 pg (27-31); Mean Corpuscular Volume 96 fL (80-94); Red Cell Distribution Width 17 % (10-15); White Blood Count 2.5 10^3/uL (3.5-10.8)
[2020-09-09 21:28] LABS: ABS Lymphocytes 0.5 10^3/ul (1.0-4.8); ABS Monocytes 0.3 10^3/ul (0-0.8); ABS Neutrophils 1.7 10^3/ul (1.5-7.7); Eosinophil % 1.1 %; Lymphocyte % 19.3 %
[2020-09-09 21:29] LABS: Urine Bacteria Absent (Absent); Urine Red Blood Cell 1+(3-5/hpf) (Absent); Urine Squamous Epithelial Cell Present (Absent); Urine White Blood Cell Trace(0-5/hpf) (Absent)
[2020-09-09 21:32] LABS: Urine Benzodiazepine Screen Presumptive Positive (None Detect); Urine Cannabinoids Screen None Detected (None Detect); Urine Opiates Screen None Detected (None Detect)
[2020-09-09 21:45] LABS: Mean Platelet Volume 8.2 fL (7.4-10.4); Platelet Count 10 10^3/uL (150-450)
[2020-09-09 22:15] LABS: ALT 69 U/L (7-52); AST 345 U/L (13-39); Albumin 3.3 g/dL (3.2-5.2); Albumin/Globulin Ratio 1.2 (1-3); Alkaline Phosphatase 381 U/L (34-104); Anion Gap 14 mmol/L (2-11); BUN/Creatinine Ratio 12.5 (8-20); Blood Urea Nitrogen 5 mg/dL (6-24); CO2 Carbon Dioxide 26 mmol/L (22-32); Calcium 8.2 mg/dL (8.6-10.3); Chloride 100 mmol/L (101-111); EGFR African American 265.5 (>60); EGFR Non-African American 219.4 (>60); Globulin 2.7 g/dL (2-4); Glucose 100 mg/dL (70-100); Potassium 3.1 mmol/L (3.5-5.0); Sodium 140 mmol/L (135-145)
[2020-09-09 22:16] LABS: Alcohol, S 167 mg/dL (<10); Salicylate < 2.50 mg/dL (<30)
[2020-09-09 22:30] LABS: TSH Ultra Thyroid Stim Horm 1.64 mcIU/mL (0.34-5.60)
[2020-09-09] MEDS ORDERED: cefTRIAXone 1 gm/50 mL NS BAG 1 GM/50 ML BAG IVPB SCH (23:45)
[2020-09-10] MEDS ORDERED: Thiamine 100 MG/ML 2 ml VIAL (200 mg) IM ONE (00:06)
[2020-09-10] MEDS ORDERED: Ondansetron 4 mg VIAL 2 MG/ML 2 ml VIAL IV PRN (00:09)
[2020-09-10 00:16] LABS: Magnesium 1.5 mg/dL (1.9-2.7)
[2020-09-10 00:18] LABS: INR 1.08 (0.82-1.09)
[2020-09-10 00:19] LABS: Total Bilirubin 1.4 mg/dL (0.2-1.0)
[2020-09-10] MEDS: KCL 20 MEQ/100 ML IVPREMIX 20 MEQ/100 ML BAG IV SCH ×6 (00:19→15:01)
[2020-09-10] MEDS ORDERED: Lidocaine 1% VIAL 10 MG/ML VIAL INJ ONE (00:23)
[2020-09-10] MEDS ORDERED: cefTRIAXone 2 GM ADDV.VIAL 2 GM in NS 0.9% 100 ml BAG 100 ML IV SCH (01:00)
[2020-09-10] MEDS ORDERED: Magnesium Sulfate IV 3 GM in NS 0.9% 100 ml BAG 100 ML IVPB ONE (01:11)
[2020-09-10 01:14] LABS: Folate 19.07 ng/mL (>3.99)
[2020-09-10 01:15] LABS: Vitamin B12 774 pg/mL (180-914)
[2020-09-10] MEDS ORDERED: LORazepam 2 mg VIAL 1 ml IV PUSH ONE (01:17)
[2020-09-10] MEDS ORDERED: Lorazepam PYXIS KEY PRN (01:17)
[2020-09-10] MEDS ORDERED: Lorazepam PYXIS KEY ONE (01:19)
[2020-09-10] MEDS ORDERED: Thiamine 100 MG/ML 2 ml VIAL (200 mg) ONE (01:27)
[2020-09-10] MEDS: LORazepam 2 mg VIAL 1 ml IV PUSH SCH ×8 (02:47→18:41)
[2020-09-10] MEDS: Lactated Ringers 1000 ml BAG 2,000 ML IV ONE ×2 (03:51→08:56)
[2020-09-10] MEDS: cefTRIAXone 2 GM ADDV.VIAL 2 GM in NS 0.9% 100 ml BAG 100 ML IV SCH (03:55)
[2020-09-10 05:57] LABS: Albumin 3.2 g/dL (3.2-5.2); Albumin/Globulin Ratio 1.2 (1-3); BUN/Creatinine Ratio 7.3 (8-20); Calcium 8.1 mg/dL (8.6-10.3); EGFR African American 258.1 (>60); EGFR Non-African American 213.3 (>60); Globulin 2.7 g/dL (2-4); Magnesium 1.9 mg/dL (1.9-2.7); Total Bilirubin 2.3 mg/dL (0.2-1.0); Total Protein 5.9 g/dL (6.4-8.9)
[2020-09-10 06:01] LABS: ABS Lymphocytes 0.4 10^3/ul (1.0-4.8); ABS Monocytes 0.5 10^3/ul (0-0.8); ABS Neutrophils 2.1 10^3/ul (1.5-7.7); Eosinophil % 0.2 %; Hematocrit 28 % (42-52); Hemoglobin 9.2 g/dL (14.0-18.0); Lymphocyte % 11.8 %; Mean Corpuscular HGB Conc 34 g/dL (31-36); Mean Corpuscular Hemoglobin 32 pg (27-31); Mean Corpuscular Volume 95 fL (80-94); Mean Platelet Volume 8.4 fL (7.4-10.4); Nucleated Red Blood Cells % 0.1; Platelet Count 11 10^3/uL (150-450); Potassium 2.6 mmol/L (3.5-5.0); Red Blood Count 2.89 10^6 /uL (4.18-5.48); Red Cell Distribution Width 17 % (10-15)
[2020-09-10] MEDS ORDERED: Potassium Chloride LIQUID 20 MEQ/15 ML LIQUID PO ONE (06:05)
[2020-09-10] MEDS ORDERED: Lactulose 30 ml UDC PO SCH (09:00)
[2020-09-10] MEDS: Multivitamins/Minerals TAB PO SCH (09:00)
[2020-09-10] MEDS: Lactulose 30 ml UDC PO SCH ×4 (09:02→19:42)
[2020-09-10] MEDS ORDERED: KCL 20 MEQ/100 ML IVPREMIX 20 MEQ/100 ML BAG IV ONE (14:30)
[2020-09-10 16:48] LABS: Vitamin D Total 25(OH) 10.9 ng/mL (20-50)
[2020-09-10] MEDS: Polymyx/Trimethoprim OPTH.SOL 1 BTL BOTH EYES SCH ×3 (17:00→22:10)
[2020-09-10 20:09] LABS: Calcium 8.3 mg/dL (8.6-10.3); EGFR African American 265.5 (>60); EGFR Non-African American 219.4 (>60); Potassium 2.8 mmol/L (3.5-5.0)
[2020-09-11] MEDS: Polymyx/Trimethoprim OPTH.SOL 1 BTL BOTH EYES SCH ×8 (01:58→22:38)
[2020-09-11] MEDS: cefTRIAXone 2 GM ADDV.VIAL 2 GM in NS 0.9% 100 ml BAG 100 ML IV SCH (04:12)
[2020-09-11] MEDS ORDERED: Potassium Chlor 20 meq TAB.ER PO ONE (07:15)
[2020-09-11 07:58] LABS: ABS Eosinophils 0.1 10^3/ul (0-0.6); ABS Lymphocytes 0.4 10^3/ul (1.0-4.8); ABS Monocytes 0.3 10^3/ul (0-0.8); ABS Neutrophils 2.7 10^3/ul (1.5-7.7); Eosinophil % 3.8 %; Hematocrit 32 % (42-52); Hemoglobin 10.8 g/dL (14.0-18.0); Lymphocyte % 11.5 %; Mean Corpuscular HGB Conc 34 g/dL (31-36); Mean Corpuscular Hemoglobin 32 pg (27-31); Mean Corpuscular Volume 96 fL (80-94); Mean Platelet Volume 9.4 fL (7.4-10.4); Nucleated Red Blood Cells % 0.1; Platelet Count 16 10^3/uL (150-450); Red Blood Count 3.34 10^6 /uL (4.18-5.48); Red Cell Distribution Width 17 % (10-15); White Blood Count 3.6 10^3/uL (3.5-10.8)
[2020-09-11 08:12] LABS: Albumin 3.3 g/dL (3.2-5.2); Albumin/Globulin Ratio 1.1 (1-3); BUN/Creatinine Ratio 7.1 (8-20); Calcium 8.6 mg/dL (8.6-10.3); EGFR Non-African American 207.4 (>60); Globulin 2.9 g/dL (2-4); Magnesium 1.4 mg/dL (1.9-2.7); Potassium 2.8 mmol/L (3.5-5.0); Total Bilirubin 2.6 mg/dL (0.2-1.0); Total Protein 6.2 g/dL (6.4-8.9)
[2020-09-11] MEDS: Multivitamins/Minerals TAB PO SCH (08:16)
[2020-09-11] MEDS: KCL 20 MEQ/100 ML IVPREMIX 20 MEQ/100 ML BAG IV SCH ×3 (08:18→13:09)
[2020-09-11] MEDS: Lactulose 30 ml UDC PO SCH ×3 (08:18→19:47)
[2020-09-11] MEDS ORDERED: Cholecalciferol (VIT D3) 1,000 unit TAB PO SCH (09:00)
[2020-09-11] MEDS ORDERED: Magnesium Sulfate 2 gm BAG 2 GM/50 ML BAG IVPB ONE (09:51)
[2020-09-11] MEDS: LORazepam 2 mg VIAL 1 ml IV PUSH SCH (22:10)
[2020-09-12] MEDS: LORazepam 2 mg VIAL 1 ml IV PUSH SCH ×8 (00:54→21:19)
[2020-09-12] MEDS: Polymyx/Trimethoprim OPTH.SOL 1 BTL BOTH EYES SCH ×8 (00:57→23:33)
[2020-09-12 06:05] LABS: ABS Eosinophils 0.2 10^3/ul (0-0.6); ABS Lymphocytes 0.6 10^3/ul (1.0-4.8); ABS Monocytes 0.5 10^3/ul (0-0.8); ABS Neutrophils 2.2 10^3/ul (1.5-7.7); Eosinophil % 5.1 %; Hematocrit 31 % (42-52); Hemoglobin 10.2 g/dL (14.0-18.0); Lymphocyte % 15.8 %; Mean Corpuscular HGB Conc 33 g/dL (31-36); Mean Corpuscular Hemoglobin 32 pg (27-31); Mean Corpuscular Volume 96 fL (80-94); Mean Platelet Volume 10.4 fL (7.4-10.4); Nucleated Red Blood Cells % 0.2; Platelet Count 32 10^3/uL (150-450); Red Blood Count 3.19 10^6 /uL (4.18-5.48); Red Cell Distribution Width 17 % (10-15); White Blood Count 3.5 10^3/uL (3.5-10.8)
[2020-09-12 06:23] LABS: Magnesium 1.6 mg/dL (1.9-2.7)
[2020-09-12] MEDS ORDERED: Magnesium Sulfate 2 gm BAG 2 GM/50 ML BAG IVPB ONE (07:28)
[2020-09-12 07:56] LABS: BUN/Creatinine Ratio 9.8 (8-20); Calcium 8.5 mg/dL (8.6-10.3); EGFR African American 258.1 (>60); EGFR Non-African American 213.3 (>60); Potassium 3.8 mmol/L (3.5-5.0)
[2020-09-12] MEDS: Cholecalciferol (VIT D3) 1,000 unit TAB PO SCH (08:23)
[2020-09-12] MEDS: Multivitamins/Minerals TAB PO SCH (08:25)
[2020-09-12] MEDS: Lactulose 30 ml UDC PO SCH ×3 (08:27→21:19)
[2020-09-13] MEDS: Polymyx/Trimethoprim OPTH.SOL 1 BTL BOTH EYES SCH ×8 (00:59→22:12)
[2020-09-13 04:52] LABS: ABS Eosinophils 0.1 10^3/ul (0-0.6); ABS Lymphocytes 0.5 10^3/ul (1.0-4.8); ABS Monocytes 0.6 10^3/ul (0-0.8); ABS Neutrophils 1.6 10^3/ul (1.5-7.7); Hematocrit 31 % (42-52); Hemoglobin 10.2 g/dL (14.0-18.0); Lymphocyte % 17.8 %; Mean Corpuscular HGB Conc 33 g/dL (31-36); Mean Corpuscular Hemoglobin 32 pg (27-31); Mean Corpuscular Volume 97 fL (80-94); Mean Platelet Volume 8.9 fL (7.4-10.4); Nucleated Red Blood Cells % 0.1; Platelet Count 53 10^3/uL (150-450); Red Blood Count 3.15 10^6 /uL (4.18-5.48); Red Cell Distribution Width 18 % (10-15); White Blood Count 2.8 10^3/uL (3.5-10.8)
[2020-09-13 05:08] LABS: Calcium 8.4 mg/dL (8.6-10.3); EGFR African American 244.3 (>60); EGFR Non-African American 201.9 (>60); Magnesium 1.6 mg/dL (1.9-2.7); Potassium 3.4 mmol/L (3.5-5.0)
[2020-09-13] MEDS: Lactulose 30 ml UDC PO SCH ×3 (08:41→22:12)
[2020-09-13] MEDS: Cholecalciferol (VIT D3) 1,000 unit TAB PO SCH (08:42)
[2020-09-13] MEDS: Multivitamins/Minerals TAB PO SCH (08:43)
[2020-09-13] MEDS ORDERED: Magnesium Sulfate IV 3 GM in NS 0.9% 100 ml BAG 100 ML IVPB ONE (08:56)
[2020-09-13] MEDS ORDERED: Potassium Chlor 20 meq TAB.ER PO ONE (08:58)
[2020-09-14] MEDS: Polymyx/Trimethoprim OPTH.SOL 1 BTL BOTH EYES SCH ×8 (01:28→23:47)
[2020-09-14 05:25] LABS: ABS Eosinophils 0.1 10^3/ul (0-0.6); ABS Lymphocytes 0.5 10^3/ul (1.0-4.8); ABS Monocytes 0.6 10^3/ul (0-0.8); ABS Neutrophils 1.4 10^3/ul (1.5-7.7); Eosinophil % 3.8 %; Hematocrit 32 % (42-52); Hemoglobin 10.4 g/dL (14.0-18.0); Lymphocyte % 17.6 %; Mean Corpuscular HGB Conc 33 g/dL (31-36); Mean Corpuscular Hemoglobin 32 pg (27-31); Mean Corpuscular Volume 98 fL (80-94); Mean Platelet Volume 8.9 fL (7.4-10.4); Nucleated Red Blood Cells % 0.1; Platelet Count 83 10^3/uL (150-450); Red Blood Count 3.25 10^6 /uL (4.18-5.48); Red Cell Distribution Width 19 % (10-15); White Blood Count 2.7 10^3/uL (3.5-10.8)
[2020-09-14 05:36] LABS: Calcium 8.6 mg/dL (8.6-10.3); EGFR African American 205.2 (>60); EGFR Non-African American 169.6 (>60); Magnesium 1.7 mg/dL (1.9-2.7); Potassium 3.8 mmol/L (3.5-5.0)
[2020-09-14] MEDS ORDERED: Magnesium Sulfate IV 3 GM in NS 0.9% 100 ml BAG 100 ML IVPB ONE (07:56)
[2020-09-14] MEDS: Cholecalciferol (VIT D3) 1,000 unit TAB PO SCH (08:50)
[2020-09-14] MEDS: Lactulose 30 ml UDC PO SCH ×3 (08:52→21:42)
[2020-09-14] MEDS: Multivitamins/Minerals TAB PO SCH (08:52)
[2020-09-15] MEDS: Polymyx/Trimethoprim OPTH.SOL 1 BTL BOTH EYES SCH ×5 (02:51→12:59)
[2020-09-15 07:43] LABS: ABS Eosinophils 0.1 10^3/ul (0-0.6); ABS Lymphocytes 0.5 10^3/ul (1.0-4.8); ABS Monocytes 0.7 10^3/ul (0-0.8); ABS Neutrophils 1.2 10^3/ul (1.5-7.7); Eosinophil % 3.4 %; Hematocrit 31 % (42-52); Hemoglobin 10.4 g/dL (14.0-18.0); Lymphocyte % 20.3 %; Mean Corpuscular HGB Conc 33 g/dL (31-36); Mean Corpuscular Hemoglobin 33 pg (27-31); Mean Corpuscular Volume 99 fL (80-94); Mean Platelet Volume 9.6 fL (7.4-10.4); Nucleated Red Blood Cells % 0.1; Platelet Count 108 10^3/uL (150-450); Red Blood Count 3.18 10^6 /uL (4.18-5.48); Red Cell Distribution Width 18 % (10-15); White Blood Count 2.6 10^3/uL (3.5-10.8)
[2020-09-15 08:01] LABS: BUN/Creatinine Ratio 22.2 (8-20); Calcium 8.5 mg/dL (8.6-10.3); EGFR African American 231.8 (>60); EGFR Non-African American 191.5 (>60); Magnesium 1.7 mg/dL (1.9-2.7)
[2020-09-15] MEDS ORDERED: Magnesium Sulfate 2 gm BAG 2 GM/50 ML BAG IVPB ONE (08:28)
[2020-09-15] MEDS: Multivitamins/Minerals TAB PO SCH (09:47)
[2020-09-15] MEDS: Cholecalciferol (VIT D3) 1,000 unit TAB PO SCH (09:48)
[2020-09-15] MEDS: Lactulose 30 ml UDC PO SCH ×3 (09:49→20:52)
[2020-09-16 06:47] LABS: ABS Eosinophils 0.1 10^3/ul (0-0.6); ABS Lymphocytes 0.6 10^3/ul (1.0-4.8); ABS Monocytes 0.9 10^3/ul (0-0.8); ABS Neutrophils 1.1 10^3/ul (1.5-7.7); Eosinophil % 3.4 %; Hematocrit 31 % (42-52); Lymphocyte % 22.4 %; Mean Corpuscular HGB Conc 33 g/dL (31-36); Mean Corpuscular Hemoglobin 32 pg (27-31); Mean Corpuscular Volume 98 fL (80-94); Mean Platelet Volume 9.2 fL (7.4-10.4); Platelet Count 119 10^3/uL (150-450); Red Blood Count 3.11 10^6 /uL (4.18-5.48); Red Cell Distribution Width 18 % (10-15); White Blood Count 2.7 10^3/uL (3.5-10.8)
[2020-09-16 07:24] LABS: BUN/Creatinine Ratio 17.6 (8-20); Calcium 8.5 mg/dL (8.6-10.3); EGFR African American 200.6 (>60); EGFR Non-African American 165.8 (>60); Magnesium 1.7 mg/dL (1.9-2.7); Potassium 4.3 mmol/L (3.5-5.0)
[2020-09-16] MEDS ORDERED: Magnesium Sulfate 2 gm BAG 2 GM/50 ML BAG IVPB ONE (07:41)
[2020-09-16] MEDS: Lactulose 30 ml UDC PO SCH ×3 (08:12→20:05)
[2020-09-16] MEDS: Multivitamins/Minerals TAB PO SCH (08:13)
[2020-09-16] MEDS: Cholecalciferol (VIT D3) 1,000 unit TAB PO SCH (08:14)
[2020-09-17 08:28] LABS: ABS Basophils 0.2 10^3/ul (0-0.2); ABS Eosinophils 0.1 10^3/ul (0-0.6); ABS Lymphocytes 0.7 10^3/ul (1.0-4.8); ABS Monocytes 0.9 10^3/ul (0-0.8); ABS Neutrophils 1.2 10^3/ul (1.5-7.7); Eosinophil % 2.8 %; Hematocrit 32 % (42-52); Hemoglobin 10.6 g/dL (14.0-18.0); Lymphocyte % 23.2 %; Mean Corpuscular HGB Conc 33 g/dL (31-36); Mean Corpuscular Hemoglobin 32 pg (27-31); Mean Corpuscular Volume 98 fL (80-94); Mean Platelet Volume 9.4 fL (7.4-10.4); Platelet Count 177 10^3/uL (150-450); Red Blood Count 3.31 10^6 /uL (4.18-5.48); Red Cell Distribution Width 18 % (10-15)
[2020-09-17 08:43] LABS: Magnesium 1.7 mg/dL (1.9-2.7)
[2020-09-17] MEDS: Cholecalciferol (VIT D3) 1,000 unit TAB PO SCH (09:20)
[2020-09-17] MEDS: Multivitamins/Minerals TAB PO SCH (09:20)
[2020-09-17] MEDS: Lactulose 30 ml UDC PO SCH ×2 (09:22→13:11)
[2020-09-17 10:19] LABS: Albumin 3.5 g/dL (3.2-5.2); Albumin/Globulin Ratio 1.3 (1-3); Globulin 2.8 g/dL (2-4); Total Bilirubin 1.2 mg/dL (0.2-1.0); Total Protein 6.3 g/dL (6.4-8.9)
[2020-09-17 10:20] LABS: Indirect Bilirubin 0.8 mg/dL (0.3-1.0)
[2020-09-17 11:36] VITALS: BP 103/63
== END 2020-09-17 15:40 | disposition home health service (06) | DRG 775 ==
LOC: ED 19:49 → MEDTELE 09-10 00:07
PROVIDERS: ADMIT Internal Medicine; ATTEND Internal Medicine

== ENCOUNTER 2020-09-25 21:22 | Inpatient (IN) ==
[2020-09-25] MEDS ORDERED: Morphine 2 MG/ML SYRINGE IV ONE ×2 (22:16→23:14)
[2020-09-25 22:46] LABS: ABS Basophils 0.1 10^3/ul (0-0.2); ABS Eosinophils 0.1 10^3/ul (0-0.6); ABS Lymphocytes 0.7 10^3/ul (1.0-4.8); ABS Neutrophils 8.9 10^3/ul (1.5-7.7); Eosinophil % 0.5 %; Hematocrit 34 % (42-52); Hemoglobin 11.5 g/dL (14.0-18.0); Lymphocyte % 6.2 %; Mean Corpuscular HGB Conc 34 g/dL (31-36); Mean Corpuscular Hemoglobin 32 pg (27-31); Mean Corpuscular Volume 95 fL (80-94); Mean Platelet Volume 8.2 fL (7.4-10.4); Platelet Count 431 10^3/uL (150-450); Red Blood Count 3.61 10^6 /uL (4.18-5.48); Red Cell Distribution Width 17 % (10-15); White Blood Count 10.7 10^3/uL (3.5-10.8)
[2020-09-25 23:03] LABS: ALT 30 U/L (7-52); Albumin 3.7 g/dL (3.2-5.2); Albumin/Globulin Ratio 1.2 (1-3); Alkaline Phosphatase 201 U/L (34-104); BUN/Creatinine Ratio 21.7 (8-20); Blood Urea Nitrogen 10 mg/dL (6-24); CO2 Carbon Dioxide 24 mmol/L (22-32); Chloride 101 mmol/L (101-111); EGFR Non-African American 186.7 (>60); Globulin 3.1 g/dL (2-4); Glucose 117 mg/dL (70-100); Sodium 137 mmol/L (135-145); Total Protein 6.8 g/dL (6.4-8.9)
[2020-09-25] MEDS ORDERED: NS 0.9% 1000 ml BAG 1,000 ML IV ONE (23:07)
[2020-09-25 23:17] LABS: Activated Partial Thrombo Time 24.5 seconds (26.0-38.0); INR 1.06 (0.82-1.09)
[2020-09-25 23:22] LABS: Alcohol, S 308 mg/dL (<10)
[2020-09-25 23:45] LABS: Anion Gap 12 mmol/L (2-11)
[2020-09-26] MEDS ORDERED: Iohexol 300 (CONTRAST) 10 ML SDV IV ONE (00:08)
[2020-09-26 02:19] LABS: Potassium Redraw 3.5 mmol/L (3.5-5.0)
[2020-09-26] MEDS ORDERED: Thiamine 100 MG/ML 2 ml VIAL 100 MG, Folic Acid 1 MG, Multiple Vitamin IV ADULT 10 ML i... IV ONE (02:30)
[2020-09-26 03:00] LABS: Magnesium 1.5 mg/dL (1.9-2.7)
[2020-09-26] MEDS ORDERED: Magnesium Sulfate IV 3 GM in NS 0.9% 100 ml BAG 100 ML IVPB ONE ×2 (03:08→09:00)
[2020-09-26] MEDS ORDERED: Lorazepam PYXIS KEY PRN (03:19)
[2020-09-26] MEDS: Ondansetron 4 mg VIAL 2 MG/ML 2 ml VIAL IV PRN ×2 (04:54→20:38)
[2020-09-26 06:51] LABS: ABS Lymphocytes 0.6 10^3/ul (1.0-4.8); Eosinophil % 0.1 %; Hematocrit 32 % (42-52); Hemoglobin 10.6 g/dL (14.0-18.0); Lymphocyte % 7.5 %; Mean Corpuscular HGB Conc 33 g/dL (31-36); Mean Corpuscular Hemoglobin 32 pg (27-31); Mean Corpuscular Volume 97 fL (80-94); Mean Platelet Volume 7.9 fL (7.4-10.4); Platelet Count 376 10^3/uL (150-450); Red Blood Count 3.33 10^6 /uL (4.18-5.48); Red Cell Distribution Width 17 % (10-15); White Blood Count 7.5 10^3/uL (3.5-10.8)
[2020-09-26 07:05] LABS: BUN/Creatinine Ratio 14.3 (8-20); Calcium 7.9 mg/dL (8.6-10.3); EGFR Non-African American 207.4 (>60); Magnesium 1.4 mg/dL (1.9-2.7); Potassium 3.4 mmol/L (3.5-5.0)
[2020-09-26] MEDS ORDERED: Polyethylene Glycol 3350 17 GM PACKET PO PRN (08:25)
[2020-09-26] MEDS ORDERED: Senna TAB 8.6 mg TAB PO PRN (08:25)
[2020-09-26] MEDS ORDERED: Magnesium Hydroxide LIQ 30 ML UDC PO PRN (08:25)
[2020-09-26] MEDS ORDERED: Magnesium Sulf 4 GM/100 ML IV 4,000 MG/100 ML BAG IVPB ONE (08:48)
[2020-09-26] MEDS: Lactulose 30 ml UDC PO SCH (09:12)
[2020-09-26] MEDS: NS 0.9% 1000 ml BAG 1,000 ML IV SCH ×2 (09:21→22:06)
[2020-09-26] MEDS: LORazepam 2 mg VIAL 1 ml IV PUSH SCH ×5 (09:22→22:39)
[2020-09-26] MEDS ORDERED: HYDROmorphone 0.5 MG/0.5 ML SYRINGE IV SLOW PU ONE (09:32)
[2020-09-26] MEDS: Multivitamins/Minerals TAB PO SCH (10:08)
[2020-09-26 14:56] LABS: Urine Appearance Clear; Urine Bilirubin Negative (Negative); Urine Blood Negative (Negative); Urine Color Yellow; Urine Glucose Negative (Negative); Urine Ketones Negative (Negative); Urine Nitrite Negative (Negative); Urine Protein Negative (Negative); Urine Specific Gravity 1.026 (1.010-1.030); Urine Urobilinogen Negative (Negative)
[2020-09-26] MEDS ORDERED: Heparin 5000 UNITS/ML 1 mL VIAL SUBCUT ONE (18:04)
[2020-09-26] MEDS: KCL 20 MEQ/100 ML IVPREMIX 20 MEQ/100 ML BAG IV SCH ×2 (18:21→21:13)
[2020-09-27] MEDS: LORazepam 2 mg VIAL 1 ml IV PUSH SCH ×10 (00:36→20:21)
[2020-09-27] MEDS: KCL 20 MEQ/100 ML IVPREMIX 20 MEQ/100 ML BAG IV SCH (00:37)
[2020-09-27 07:54] LABS: ABS Eosinophils 0.1 10^3/ul (0-0.6); ABS Lymphocytes 0.5 10^3/ul (1.0-4.8); ABS Monocytes 0.9 10^3/ul (0-0.8); ABS Neutrophils 6.6 10^3/ul (1.5-7.7); Eosinophil % 0.7 %; Hematocrit 34 % (42-52); Hemoglobin 11.1 g/dL (14.0-18.0); Lymphocyte % 5.9 %; Mean Corpuscular HGB Conc 33 g/dL (31-36); Mean Corpuscular Hemoglobin 31 pg (27-31); Mean Corpuscular Volume 95 fL (80-94); Platelet Count 268 10^3/uL (150-450); Red Blood Count 3.55 10^6 /uL (4.18-5.48); Red Cell Distribution Width 16 % (10-15)
[2020-09-27] MEDS: Lactulose 30 ml UDC PO SCH (08:02)
[2020-09-27 08:13] LABS: Albumin 3.3 g/dL (3.2-5.2); Albumin/Globulin Ratio 1.2 (1-3); BUN/Creatinine Ratio 8.1 (8-20); Calcium 8.4 mg/dL (8.6-10.3); EGFR African American 290.5 (>60); EGFR Non-African American 240.1 (>60); Globulin 2.8 g/dL (2-4); Magnesium 1.6 mg/dL (1.9-2.7); Potassium 3.6 mmol/L (3.5-5.0); Total Protein 6.1 g/dL (6.4-8.9)
[2020-09-27] MEDS: Multivitamins/Minerals TAB PO SCH (08:57)
[2020-09-27] MEDS ORDERED: Magnesium Sulfate 2 gm BAG 2 GM/50 ML BAG IVPB ONE (09:05)
[2020-09-27] MEDS: NS 0.9% 1000 ml BAG 1,000 ML IV SCH ×2 (11:16→21:45)
[2020-09-27] MEDS: HYDROmorphone 1 MG/1 ML SYRINGE IV SLOW PU PRN (20:21)
[2020-09-28] MEDS: LORazepam 2 mg VIAL 1 ml IV PUSH SCH ×4 (05:00→16:39)
[2020-09-28] MEDS: HYDROmorphone 1 MG/1 ML SYRINGE IV SLOW PU PRN (06:09)
[2020-09-28 06:16] LABS: ABS Basophils 0.1 10^3/ul (0-0.2); ABS Eosinophils 0.1 10^3/ul (0-0.6); ABS Lymphocytes 0.7 10^3/ul (1.0-4.8); ABS Monocytes 0.9 10^3/ul (0-0.8); ABS Neutrophils 5.9 10^3/ul (1.5-7.7); Eosinophil % 1.7 %; Hematocrit 31 % (42-52); Hemoglobin 10.4 g/dL (14.0-18.0); Lymphocyte % 8.9 %; Mean Corpuscular HGB Conc 34 g/dL (31-36); Mean Corpuscular Hemoglobin 31 pg (27-31); Mean Corpuscular Volume 93 fL (80-94); Mean Platelet Volume 8.6 fL (7.4-10.4); Platelet Count 227 10^3/uL (150-450); Red Blood Count 3.32 10^6 /uL (4.18-5.48); Red Cell Distribution Width 17 % (10-15); White Blood Count 7.6 10^3/uL (3.5-10.8)
[2020-09-28 06:31] LABS: Albumin 3.1 g/dL (3.2-5.2); Albumin/Globulin Ratio 1.2 (1-3); BUN/Creatinine Ratio 11.9 (8-20); Calcium 8.4 mg/dL (8.6-10.3); EGFR Non-African American 207.4 (>60); Globulin 2.5 g/dL (2-4); Magnesium 1.6 mg/dL (1.9-2.7); Potassium 3.3 mmol/L (3.5-5.0); Total Bilirubin 1.1 mg/dL (0.2-1.0); Total Protein 5.6 g/dL (6.4-8.9)
[2020-09-28] MEDS: Multivitamins/Minerals TAB PO SCH (08:12)
[2020-09-28] MEDS: Lactulose 30 ml UDC PO SCH (08:12)
[2020-09-28] MEDS: NS 0.9% 1000 ml BAG 1,000 ML IV SCH (15:32)
[2020-09-28] MEDS ORDERED: Magnesium Sulfate 2 gm BAG 2 GM/50 ML BAG IVPB ONE (18:20)
[2020-09-28] MEDS: KCL 20 MEQ/100 ML IVPREMIX 20 MEQ/100 ML BAG IV SCH (18:54)
[2020-09-29] MEDS: KCL 20 MEQ/100 ML IVPREMIX 20 MEQ/100 ML BAG IV SCH ×5 (00:25→05:03)
[2020-09-29] MEDS: HYDROmorphone 1 MG/1 ML SYRINGE IV SLOW PU PRN ×3 (01:32→20:30)
[2020-09-29] MEDS: NS 0.9% 1000 ml BAG 1,000 ML IV SCH ×2 (01:32→20:23)
[2020-09-29 06:31] LABS: ABS Eosinophils 0.2 10^3/ul (0-0.6); ABS Lymphocytes 0.8 10^3/ul (1.0-4.8); ABS Monocytes 1.1 10^3/ul (0-0.8); ABS Neutrophils 3.6 10^3/ul (1.5-7.7); Eosinophil % 4.2 %; Hematocrit 30 % (42-52); Hemoglobin 9.9 g/dL (14.0-18.0); Lymphocyte % 13.5 %; Mean Corpuscular HGB Conc 34 g/dL (31-36); Mean Corpuscular Hemoglobin 31 pg (27-31); Mean Corpuscular Volume 93 fL (80-94); Mean Platelet Volume 8.1 fL (7.4-10.4); Nucleated Red Blood Cells % 0.1; Platelet Count 200 10^3/uL (150-450); Red Blood Count 3.17 10^6 /uL (4.18-5.48); Red Cell Distribution Width 17 % (10-15); White Blood Count 5.7 10^3/uL (3.5-10.8)
[2020-09-29 06:52] LABS: BUN/Creatinine Ratio 15.9 (8-20); Calcium 8.1 mg/dL (8.6-10.3); EGFR African American 237.9 (>60); EGFR Non-African American 196.6 (>60); Potassium 3.4 mmol/L (3.5-5.0)
[2020-09-29] MEDS: Lactulose 30 ml UDC PO SCH (10:07)
[2020-09-29] MEDS: Multivitamins/Minerals TAB PO SCH (10:07)
[2020-09-29] MEDS ORDERED: fentaNYL 100 mcg/2 ml 50 MCG/ML VIAL ONE (10:21)
[2020-09-29] MEDS ORDERED: Midazolam 5 mg/5 ml VIAL 1 mg/ml 5 ml VIAL (5 mg) ONE (10:21)
[2020-09-29] MEDS ORDERED: Famotidine IV 10 MG/ML 2 ml VIAL (20 mg) ONE (10:29)
[2020-09-29] MEDS: Famotidine IV 10 MG/ML 2 ml VIAL (20 mg) IV ONE (10:31)
[2020-09-29] MEDS ORDERED: HYDROmorphone 1 MG/1 ML SYRINGE ONE (10:41)
[2020-09-29] MEDS ORDERED: ceFAZolin 2 GM PREMIX 2 GM/50 ML BAG ONE (10:55)
[2020-09-29] MEDS ORDERED: Lidocaine 2% PF 5 ML VIAL ONE (12:17)
[2020-09-29] MEDS ORDERED: Propofol 10 MG/ML 20 ML BTL ONE (12:17)
[2020-09-29] MEDS ORDERED: Dexamethasone IV 4 MG/ML VIAL 1 ml VIAL ONE (12:17)
[2020-09-29] MEDS ORDERED: Rocuronium 50 mg VIAL 10 mg/ml 5 ml VIAL (50 mg) ONE (12:18)
[2020-09-29] MEDS ORDERED: Dexmedetomidine 200 mcg/2 ml 2 ml VIAL (200 mcg) ONE (13:01)
[2020-09-29] MEDS ORDERED: EPHEDrine (Pressors) 50 MG/ML VIAL ONE (13:11)
[2020-09-29] MEDS ORDERED: Vancomycin 1,000 MG VIAL ONE (13:47)
[2020-09-29] MEDS ORDERED: Bupivacaine 0.25% SDV 30 ML ONE (13:48)
[2020-09-29] MEDS ORDERED: Naloxone 0.4 mg VIAL 0.4 mg/ml 1 ml VIAL IV PRN (13:50)
[2020-09-29] MEDS ORDERED: DiMENhydriNATE IV 50 mg/ml 1 ml VIAL IV PUSH PRN (13:50)
[2020-09-29] MEDS ORDERED: fentaNYL 100 mcg/2 ml 50 MCG/ML VIAL IV PRN (13:50)
[2020-09-29] MEDS ORDERED: Sodium Chloride 0.9% 10 ML ONE (14:24)
[2020-09-29 15:15] LABS: ABS Eosinophils 0.1 10^3/ul (0-0.6); ABS Lymphocytes 0.3 10^3/ul (1.0-4.8); ABS Monocytes 0.5 10^3/ul (0-0.8); ABS Neutrophils 7.4 10^3/ul (1.5-7.7); Eosinophil % 0.9 %; Hematocrit 29 % (42-52); Hemoglobin 9.4 g/dL (14.0-18.0); Lymphocyte % 3.1 %; Mean Corpuscular HGB Conc 33 g/dL (31-36); Mean Corpuscular Hemoglobin 31 pg (27-31); Mean Corpuscular Volume 94 fL (80-94); Mean Platelet Volume 7.8 fL (7.4-10.4); Platelet Count 191 10^3/uL (150-450); Red Blood Count 3.06 10^6 /uL (4.18-5.48); Red Cell Distribution Width 17 % (10-15); White Blood Count 8.2 10^3/uL (3.5-10.8)
[2020-09-29 15:30] LABS: BUN/Creatinine Ratio 13.6 (8-20); Calcium 8.1 mg/dL (8.6-10.3); EGFR African American 237.9 (>60); EGFR Non-African American 196.6 (>60); Potassium 3.8 mmol/L (3.5-5.0)
[2020-09-29] MEDS ORDERED: ceFAZolin 1 GM X 3 DOSES POST-OP Q8H (AddVan) IVPB SCH (21:00)
[2020-09-29] MEDS: LORazepam 2 mg VIAL 1 ml IV PUSH SCH (22:45)
[2020-09-30] MEDS ORDERED: Iohexol 350 (CONTRAST) 500 ML MDV IV ONE (00:26)
[2020-09-30 00:31] LABS: Hematocrit 28 % (42-52); Hemoglobin 9.3 g/dL (14.0-18.0)
[2020-09-30 00:56] LABS: BUN/Creatinine Ratio 20.5 (8-20); EGFR African American 237.9 (>60); EGFR Non-African American 196.6 (>60); Magnesium 1.4 mg/dL (1.9-2.7); Potassium 3.8 mmol/L (3.5-5.0)
[2020-09-30] MEDS ORDERED: Magnesium Sulfate IV 3 GM in NS 0.9% 100 ml BAG 100 ML IVPB ONE (01:20)
[2020-09-30] MEDS ORDERED: NS 0.9% 500 ml BAG 500 ML IV ONE (03:07)
[2020-09-30 03:13] LABS: Mean Corpuscular HGB Conc 34 g/dL (31-36); Mean Corpuscular Hemoglobin 31 pg (27-31); Mean Corpuscular Volume 93 fL (80-94); Platelet Count 251 10^3/uL (150-450); Red Cell Distribution Width 17 % (10-15); White Blood Count 12.2 10^3/uL (3.5-10.8)
[2020-09-30] MEDS ORDERED: Vancomycin per Pharmacy 1 EA NOTE FOLLOW UP PRN (03:45)
[2020-09-30 03:58] LABS: INR 1.31 (0.82-1.09)
[2020-09-30 03:58] LABS: Albumin 2.8 g/dL (3.2-5.2); Albumin/Globulin Ratio 1.3 (1-3); Globulin 2.2 g/dL (2-4); Indirect Bilirubin 0.5 mg/dL (0.3-1.0); Total Bilirubin 0.7 mg/dL (0.2-1.0)
[2020-09-30] MEDS: NS 0.9% 1000 ml BAG 1,000 ML IV SCH ×2 (04:02→17:56)
[2020-09-30] MEDS: Cefepime 2 GM in Dextrose 2 GM/50 ML BAG IV SCH ×2 (04:02→22:00)
[2020-09-30 04:12] LABS: ALT 12 U/L (7-52); Albumin 2.8 g/dL (3.2-5.2); Albumin/Globulin Ratio 1.2 (1-3); Alkaline Phosphatase 114 U/L (34-104); Creatine Kinase 178 U/L (10-223); Globulin 2.3 g/dL (2-4); Total Protein 5.1 g/dL (6.4-8.9)
[2020-09-30] MEDS: VANCOMYCIN 1250 MG IVPB SCH ×3 (05:05→22:57)
[2020-09-30] MEDS ORDERED: Lactated Ringers 1000 ml BAG 1,000 ML IV SCH (06:00)
[2020-09-30] MEDS ORDERED: Buffered Lidocaine 1% SYRIN 1 ml INTRADERM ONE (06:00)
[2020-09-30 06:14] LABS: Urine Appearance Clear; Urine Bilirubin Negative (Negative); Urine Blood 3+ (Negative); Urine Color Yellow; Urine Glucose Negative (Negative); Urine Ketones 2+ (Negative); Urine Nitrite Negative (Negative); Urine Protein 2+(100 mg/dL) (Negative); Urine Urobilinogen Negative (Negative)
[2020-09-30] MEDS: Famotidine IV 10 MG/ML 2 ml VIAL (20 mg) IV ONE (06:25)
[2020-09-30] MEDS ORDERED: Potassium Chlor 20 meq TAB.ER PO ONE (06:48)
[2020-09-30 07:10] LABS: Urine Bacteria Absent (Absent); Urine Red Blood Cell 3+(>10/hpf) (Absent); Urine Squamous Epithelial Cell Present (Absent); Urine White Blood Cell Absent (Absent)
[2020-09-30] MEDS: Multivitamins/Minerals TAB PO SCH (08:12)
[2020-09-30] MEDS: Lactulose 30 ml UDC PO SCH (08:12)
[2020-09-30] MEDS: LORazepam 2 mg VIAL 1 ml IV PUSH SCH ×5 (08:12→23:27)
[2020-09-30] MEDS ORDERED: Calcium Carb (TUMS) 500 mg CHEW TAB PO PRN (10:06)
[2020-09-30] MEDS: HYDROmorphone 1 MG/1 ML SYRINGE IV SLOW PU PRN (13:00)
[2020-09-30 16:15] LABS: Influenza A Molecular Negative (Negative); Influenza B Molecular Negative (Negative)
[2020-09-30 17:11] LABS: Hematocrit 23 % (42-52); Hemoglobin 7.5 g/dL (14.0-18.0); Mean Corpuscular HGB Conc 33 g/dL (31-36); Mean Corpuscular Hemoglobin 31 pg (27-31); Mean Corpuscular Volume 93 fL (80-94); Mean Platelet Volume 8.1 fL (7.4-10.4); Platelet Count 190 10^3/uL (150-450); Red Blood Count 2.43 10^6 /uL (4.18-5.48); Red Cell Distribution Width 18 % (10-15); White Blood Count 11.8 10^3/uL (3.5-10.8)
[2020-09-30 17:27] LABS: Albumin 2.7 g/dL (3.2-5.2); Albumin/Globulin Ratio 1.2 (1-3); BUN/Creatinine Ratio 18.4 (8-20); Calcium 7.9 mg/dL (8.6-10.3); EGFR African American 281.7 (>60); EGFR Non-African American 232.8 (>60); Globulin 2.2 g/dL (2-4); Potassium 3.4 mmol/L (3.5-5.0); Total Bilirubin 0.8 mg/dL (0.2-1.0); Total Protein 4.9 g/dL (6.4-8.9)
[2020-09-30 17:34] LABS: ABS Basophils 0.1 10^3/ul (0-0.2); ABS Lymphocytes 0.9 10^3/ul (1.0-4.8); ABS Monocytes 2.1 10^3/ul (0-0.8); ABS Neutrophils 8.7 10^3/ul (1.5-7.7); Eosinophil % 0.2 %; Lymphocyte % 7.5 %
[2020-09-30] MEDS: KCL 20 MEQ/100 ML IVPREMIX 20 MEQ/100 ML BAG IV SCH ×2 (18:04→22:50)
[2020-09-30 18:08] LABS: C Reactive Protein 130.58 mg/L (<8.01)
[2020-09-30] MEDS: Heparin 5000 UNITS/ML 1 mL VIAL SUBCUT SCH (22:55)
[2020-10-01] MEDS: LORazepam 2 mg VIAL 1 ml IV PUSH SCH (00:53)
[2020-10-01] MEDS: KCL 20 MEQ/100 ML IVPREMIX 20 MEQ/100 ML BAG IV SCH (00:54)
[2020-10-01 02:24] LABS: Hematocrit 24 % (42-52); Hemoglobin 7.8 g/dL (14.0-18.0)
[2020-10-01] MEDS: VANCOMYCIN 1250 MG IVPB SCH ×3 (05:34→22:22)
[2020-10-01 06:43] LABS: Hematocrit 20 % (42-52); Hemoglobin 6.7 g/dL (14.0-18.0); Mean Corpuscular HGB Conc 34 g/dL (31-36); Mean Corpuscular Hemoglobin 32 pg (27-31); Mean Corpuscular Volume 94 fL (80-94); Mean Platelet Volume 8.6 fL (7.4-10.4); Platelet Count 152 10^3/uL (150-450); Red Cell Distribution Width 18 % (10-15); White Blood Count 8.3 10^3/uL (3.5-10.8)
[2020-10-01 06:46] LABS: ABS Lymphocytes 0.7 10^3/ul (1.0-4.8); ABS Monocytes 1.7 10^3/ul (0-0.8); ABS Neutrophils 5.8 10^3/ul (1.5-7.7); Eosinophil % 0.3 %; Lymphocyte % 8.8 %
[2020-10-01 06:59] LABS: C Reactive Protein 165.18 mg/L (<8.01); Magnesium 1.6 mg/dL (1.9-2.7)
[2020-10-01] MEDS: Cefepime 2 GM in Dextrose 2 GM/50 ML BAG IV SCH ×2 (09:40→21:19)
[2020-10-01] MEDS: Multivitamins/Minerals TAB PO SCH (09:57)
[2020-10-01] MEDS: Heparin 5000 UNITS/ML 1 mL VIAL SUBCUT SCH ×2 (10:02→21:22)
[2020-10-01] MEDS: Lactulose 30 ml UDC PO SCH (10:19)
[2020-10-01] MEDS ORDERED: NS 0.9% 1000 ml BAG 1,000 ML IV SCH (10:45)
[2020-10-01] MEDS ORDERED: Vancomycin Trough Check NOTE FOLLOW UP ONE (12:30)
[2020-10-01] MEDS: Magnesium Sulfate IV 3 GM in NS 0.9% 100 ml BAG 100 ML IVPB ONE ×2 (13:29→14:47)
[2020-10-01 18:29] LABS: Hematocrit 24 % (42-52); Hemoglobin 7.9 g/dL (14.0-18.0)
[2020-10-02] MEDS: VANCOMYCIN 1250 MG IVPB SCH ×2 (04:38→12:53)
[2020-10-02 07:14] LABS: ABS Eosinophils 0.2 10^3/ul (0-0.6); ABS Lymphocytes 0.6 10^3/ul (1.0-4.8); ABS Neutrophils 4.8 10^3/ul (1.5-7.7); Eosinophil % 2.6 %; Hematocrit 23 % (42-52); Hemoglobin 7.8 g/dL (14.0-18.0); Lymphocyte % 9.7 %; Mean Corpuscular HGB Conc 34 g/dL (31-36); Mean Corpuscular Hemoglobin 32 pg (27-31); Mean Corpuscular Volume 94 fL (80-94); Platelet Count 157 10^3/uL (150-450); Red Blood Count 2.44 10^6 /uL (4.18-5.48); Red Cell Distribution Width 19 % (10-15); White Blood Count 6.7 10^3/uL (3.5-10.8)
[2020-10-02 07:36] LABS: Albumin 2.7 g/dL (3.2-5.2); Albumin/Globulin Ratio 1.1 (1-3); BUN/Creatinine Ratio 28.9 (8-20); Calcium 7.8 mg/dL (8.6-10.3); EGFR African American 281.7 (>60); EGFR Non-African American 232.8 (>60); Globulin 2.4 g/dL (2-4); Magnesium 1.7 mg/dL (1.9-2.7); Potassium 3.4 mmol/L (3.5-5.0); Total Bilirubin 0.9 mg/dL (0.2-1.0); Total Protein 5.1 g/dL (6.4-8.9)
[2020-10-02] MEDS ORDERED: Magnesium Sulfate IV 3 GM in NS 0.9% 100 ml BAG 100 ML IVPB ONE (08:25)
[2020-10-02] MEDS ORDERED: Potassium Chlor 20 meq TAB.ER PO ONE (08:25)
[2020-10-02] MEDS: Lactulose 30 ml UDC PO SCH (08:55)
[2020-10-02] MEDS: Heparin 5000 UNITS/ML 1 mL VIAL SUBCUT SCH ×2 (08:55→20:33)
[2020-10-02] MEDS: Cefepime 2 GM in Dextrose 2 GM/50 ML BAG IV SCH ×2 (08:55→20:34)
[2020-10-02] MEDS: Multivitamins/Minerals TAB PO SCH (08:56)
[2020-10-02] MEDS ORDERED: KCL 20 MEQ/100 ML IVPREMIX 20 MEQ/100 ML BAG IV ONE (09:46)
[2020-10-02] MEDS ORDERED: NS 0.9% 100 ml BAG 0 ML ONE (10:26)
[2020-10-02] MEDS: HYDROmorphone 1 MG/1 ML SYRINGE IV SLOW PU PRN (23:16)
[2020-10-03 04:38] LABS: ABS Eosinophils 0.3 10^3/ul (0-0.6); ABS Lymphocytes 0.7 10^3/ul (1.0-4.8); ABS Monocytes 1.1 10^3/ul (0-0.8); ABS Neutrophils 4.4 10^3/ul (1.5-7.7); Eosinophil % 4.6 %; Hematocrit 24 % (42-52); Hemoglobin 7.9 g/dL (14.0-18.0); Lymphocyte % 10.7 %; Mean Corpuscular HGB Conc 34 g/dL (31-36); Mean Corpuscular Hemoglobin 31 pg (27-31); Mean Corpuscular Volume 94 fL (80-94); Mean Platelet Volume 8.3 fL (7.4-10.4); Platelet Count 181 10^3/uL (150-450); Red Blood Count 2.51 10^6 /uL (4.18-5.48); Red Cell Distribution Width 18 % (10-15); White Blood Count 6.5 10^3/uL (3.5-10.8)
[2020-10-03 04:53] LABS: Albumin 2.5 g/dL (3.2-5.2); BUN/Creatinine Ratio 21.6 (8-20); C Reactive Protein 96.3 mg/L (<8.01); EGFR African American 290.5 (>60); EGFR Non-African American 240.1 (>60); Globulin 2.5 g/dL (2-4); Magnesium 1.7 mg/dL (1.9-2.7); Potassium 3.5 mmol/L (3.5-5.0); Total Bilirubin 0.9 mg/dL (0.2-1.0)
[2020-10-03] MEDS ORDERED: Potassium Chlor 20 meq TAB.ER PO ONE (07:33)
[2020-10-03] MEDS ORDERED: Magnesium Sulfate 2 gm BAG 2 GM/50 ML BAG IVPB ONE (07:33)
[2020-10-03] MEDS: Multivitamins/Minerals TAB PO SCH (10:24)
[2020-10-03] MEDS: Heparin 5000 UNITS/ML 1 mL VIAL SUBCUT SCH ×2 (10:25→20:05)
[2020-10-03] MEDS: Lactulose 30 ml UDC PO SCH (10:25)
[2020-10-03] MEDS: Cefepime 2 GM in Dextrose 2 GM/50 ML BAG IV SCH (10:43)
[2020-10-03] MEDS ORDERED: Vancomycin Trough Check NOTE FOLLOW UP ONE (12:30)
[2020-10-03] MEDS: HYDROmorphone 1 MG/1 ML SYRINGE IV SLOW PU PRN (13:21)
[2020-10-04 04:58] LABS: ABS Eosinophils 0.2 10^3/ul (0-0.6); ABS Lymphocytes 0.7 10^3/ul (1.0-4.8); ABS Monocytes 0.8 10^3/ul (0-0.8); ABS Neutrophils 2.4 10^3/ul (1.5-7.7); Eosinophil % 5.5 %; Hematocrit 24 % (42-52); Hemoglobin 7.9 g/dL (14.0-18.0); Lymphocyte % 16.3 %; Mean Corpuscular HGB Conc 33 g/dL (31-36); Mean Corpuscular Hemoglobin 32 pg (27-31); Mean Corpuscular Volume 95 fL (80-94); Nucleated Red Blood Cells % 0.2; Platelet Count 183 10^3/uL (150-450); Red Cell Distribution Width 18 % (10-15); White Blood Count 4.1 10^3/uL (3.5-10.8)
[2020-10-04 05:12] LABS: BUN/Creatinine Ratio 17.9 (8-20); Calcium 8.1 mg/dL (8.6-10.3); EGFR African American 273.4 (>60); EGFR Non-African American 225.9 (>60); Magnesium 1.6 mg/dL (1.9-2.7); Potassium 3.7 mmol/L (3.5-5.0)
[2020-10-04] MEDS ORDERED: ceFAZolin VIAL 2 GM in NS 0.9% 100 ml BAG 100 ML IVPB SCH (08:00)
[2020-10-04] MEDS ORDERED: Magnesium Sulfate IV 3 GM in NS 0.9% 100 ml BAG 100 ML IVPB ONE (08:00)
[2020-10-04] MEDS: Heparin 5000 UNITS/ML 1 mL VIAL SUBCUT SCH ×2 (09:17→22:05)
[2020-10-04] MEDS: Lactulose 30 ml UDC PO SCH (09:21)
[2020-10-04] MEDS: Multivitamins/Minerals TAB PO SCH (09:21)
[2020-10-04] MEDS: ceFAZolin 2 GM PREMIX 2 GM/50 ML BAG IVPB SCH ×3 (09:28→23:32)
[2020-10-05 06:19] LABS: Hematocrit 25 % (42-52); Hemoglobin 8.3 g/dL (14.0-18.0)
[2020-10-05] MEDS: ceFAZolin 2 GM PREMIX 2 GM/50 ML BAG IVPB SCH (08:35)
[2020-10-05] MEDS: Lactulose 30 ml UDC PO SCH (09:43)
[2020-10-05] MEDS: Multivitamins/Minerals TAB PO SCH (09:44)
[2020-10-05] MEDS: Heparin 5000 UNITS/ML 1 mL VIAL SUBCUT SCH ×2 (09:45→21:26)
[2020-10-05] MEDS ORDERED: Magnesium Sulfate IV 3 GM in NS 0.9% 100 ml BAG 100 ML IVPB ONE (09:46)
[2020-10-06 06:15] LABS: ABS Basophils 0.1 10^3/ul (0-0.2); ABS Eosinophils 0.2 10^3/ul (0-0.6); ABS Lymphocytes 0.9 10^3/ul (1.0-4.8); ABS Neutrophils 4.4 10^3/ul (1.5-7.7); Eosinophil % 3.5 %; Hematocrit 25 % (42-52); Hemoglobin 8.2 g/dL (14.0-18.0); Lymphocyte % 14.2 %; Mean Corpuscular HGB Conc 33 g/dL (31-36); Mean Corpuscular Hemoglobin 32 pg (27-31); Mean Corpuscular Volume 96 fL (80-94); Mean Platelet Volume 8.6 fL (7.4-10.4); Nucleated Red Blood Cells % 0.1; Platelet Count 271 10^3/uL (150-450); Red Blood Count 2.59 10^6 /uL (4.18-5.48); Red Cell Distribution Width 19 % (10-15); White Blood Count 6.6 10^3/uL (3.5-10.8)
[2020-10-06 06:30] LABS: Calcium 8.3 mg/dL (8.6-10.3); EGFR Non-African American 207.4 (>60); Magnesium 1.7 mg/dL (1.9-2.7); Potassium 3.7 mmol/L (3.5-5.0)
[2020-10-06] MEDS ORDERED: Magnesium Sulfate 2 gm BAG 2 GM/50 ML BAG IVPB ONE (07:54)
[2020-10-06] MEDS: Multivitamins/Minerals TAB PO SCH (09:20)
[2020-10-06] MEDS: Heparin 5000 UNITS/ML 1 mL VIAL SUBCUT SCH (09:22)
[2020-10-06] MEDS: Lactulose 30 ml UDC PO SCH ×5 (09:22→20:45)
[2020-10-06] MEDS ORDERED: Lorazepam PYXIS KEY PRN (18:14)
[2020-10-06] MEDS ORDERED: LORazepam 2 mg VIAL 1 ml IV PUSH ONE (18:14)
[2020-10-06] MEDS ORDERED: LORazepam 2 mg VIAL 1 ml ONE (18:16)
[2020-10-06] MEDS ORDERED: Enoxaparin 40 MG/0.4 ML SYR SUBCUT SCH (21:00)
[2020-10-06] MEDS ORDERED: LORazepam 2 mg VIAL 1 ml IV PUSH PRN (22:25)
[2020-10-07] MEDS: Lactulose 30 ml UDC PO SCH ×6 (00:49→09:36)
[2020-10-07] MEDS ORDERED: Magnesium Sulfate IV 3 GM in NS 0.9% 100 ml BAG 100 ML IVPB ONE (10:05)
[2020-10-07] MEDS: Multivitamins/Minerals TAB PO SCH (10:06)
[2020-10-07] MEDS ORDERED: Lactulose 30 ml UDC PO SCH (10:26)
[2020-10-07 11:59] VITALS: BP 120/70
== END 2020-10-07 15:51 | DRG 301 ==
LOC: ED 21:22 → SSU 09-26 02:36
PROVIDERS: ADMIT Internal Medicine; ATTEND Student in an Organized Health Care Education/Training Program

== ENCOUNTER 2020-12-20 03:44 | Inpatient (IN) ==
[2020-12-20] MEDS ORDERED: NS 0.9% 1000 ml BAG 1,000 ML IV ONE (03:56)
[2020-12-20] MEDS ORDERED: Tetan/Diph/Pertus SYR(Tdap) 0.5 ML SYR(BOOSTRIX) use SYR contains LATEX IM ONE (03:56)
[2020-12-20] MEDS ORDERED: ceFAZolin 2 GM PREMIX 2 GM/50 ML BAG IVPB ONE (04:09)
[2020-12-20 04:31] LABS: ABS Lymphocytes 0.7 10^3/ul (1.0-4.8); ABS Monocytes 0.4 10^3/ul (0-0.8); ABS Neutrophils 1.8 10^3/ul (1.5-7.7); Hematocrit 36 % (42-52); Hemoglobin 12.4 g/dL (14.0-18.0); Lymphocyte % 23.3 %; Mean Corpuscular HGB Conc 34 g/dL (31-36); Mean Corpuscular Hemoglobin 32 pg (27-31); Mean Corpuscular Volume 94 fL (80-94); Mean Platelet Volume 7.3 fL (7.4-10.4); Nucleated Red Blood Cells % 0.1; Platelet Count 46 10^3/uL (150-450); Red Blood Count 3.89 10^6 /uL (4.18-5.48); Red Cell Distribution Width 24 % (10-15)
[2020-12-20 04:42] LABS: Acetaminophen < 15 mcg/mL; Salicylate < 2.50 mg/dL (<30)
[2020-12-20 04:44] LABS: ALT 129 U/L (7-52); AST 289 U/L (13-39); Albumin 3.7 g/dL (3.2-5.2); Albumin/Globulin Ratio 1.3 (1-3); Alkaline Phosphatase 559 U/L (34-104); Anion Gap 9 mmol/L (2-11); Blood Urea Nitrogen 5 mg/dL (6-24); CO2 Carbon Dioxide 30 mmol/L (22-32); Calcium 8.1 mg/dL (8.6-10.3); Chloride 101 mmol/L (101-111); Creatine Kinase 93 U/L (10-223); EGFR African American 205.2 (>60); EGFR Non-African American 169.6 (>60); Globulin 2.8 g/dL (2-4); Glucose 131 mg/dL (70-100); Potassium 3.5 mmol/L (3.5-5.0); Sodium 140 mmol/L (135-145); Total Protein 6.5 g/dL (6.4-8.9)
[2020-12-20 04:48] LABS: Alcohol, S 433 mg/dL (<10)
[2020-12-20] MEDS ORDERED: Thiamine IV 100 MG, Folic Acid IV 1 MG, Multiple Vitamin IV ADULT 10 ML in NS 0.9% 1000... IVPB ONE (06:30)
[2020-12-20] MEDS ORDERED: Ondansetron 4 mg VIAL 2 MG/ML 2 ml VIAL IV ONE ×2 (07:05→13:53)
[2020-12-20] MEDS ORDERED: Morphine 4 MG/ML VIAL (1 ml) IV ONE ×2 (08:33→10:16)
[2020-12-20] MEDS ORDERED: Thiamine 100 MG/ML 2 ml VIAL (200 mg) IM ONE (11:01)
[2020-12-20] MEDS ORDERED: Ondansetron 4 mg VIAL 2 MG/ML 2 ml VIAL IV PRN (11:04)
[2020-12-20] MEDS ORDERED: HYDROmorphone 0.5 MG/0.5 ML SYRINGE IV SLOW PU PRN (11:22)
[2020-12-20 11:41] LABS: Magnesium 1.8 mg/dL (1.9-2.7)
[2020-12-20] MEDS ORDERED: Magnesium Sulfate 2 gm BAG 2 GM/50 ML BAG IVPB ONE (12:23)
[2020-12-20] MEDS ORDERED: Prochlorperazine 5 mg/ml 2 ml VIAL (10 mg) IV PRN (13:53)
[2020-12-20] MEDS ORDERED: Lorazepam PYXIS KEY PRN (14:04)
[2020-12-20] MEDS: LORazepam 2 mg VIAL 1 ml IV PUSH SCH ×2 (14:16→16:32)
[2020-12-20] MEDS: LOTEPREDNOL ETABONATE 0.2% BOTH EYES SCH ×3 (14:16→20:19)
[2020-12-20] MEDS: HYDROcodone/ACETAMIN 5/325 mg TAB PO PRN ×2 (14:24→18:29)
[2020-12-20] MEDS: Lactated Ringers 1000 ml BAG 1,000 ML IV SCH (14:36)
[2020-12-20 14:52] LABS: Hematocrit 29 % (42-52); Hemoglobin 9.9 g/dL (14.0-18.0)
[2020-12-20 17:14] LABS: Urine Appearance Cloudy; Urine Bilirubin Negative (Negative); Urine Blood Negative (Negative); Urine Color Amber; Urine Glucose Negative (Negative); Urine Ketones Trace (Negative); Urine Nitrite Negative (Negative); Urine Protein Negative (Negative); Urine Specific Gravity 1.017 (1.002-1.030); Urine Urobilinogen Negative (Negative)
[2020-12-20 17:29] LABS: Urine Benzodiazepine Screen None Detected (None Detect); Urine Cannabinoids Screen None Detected (None Detect); Urine Opiates Screen Presumptive Positive (None Detect)
[2020-12-20] MEDS: Mometasone 220 MCG MDI INH SCH (20:01)
[2020-12-20] MEDS: HYDROmorphone 0.5 MG/0.5 ML SYRINGE IV SLOW PU PRN (20:12)
[2020-12-20] MEDS: Lidocaine Patch REMOVE PATCH PATCH OFF SCH (20:19)
[2020-12-20 21:04] LABS: Hematocrit 25 % (42-52); Hemoglobin 8.7 g/dL (14.0-18.0)
[2020-12-21] MEDS: Lactated Ringers 1000 ml BAG 1,000 ML IV SCH (01:53)
[2020-12-21] MEDS: HYDROmorphone 0.5 MG/0.5 ML SYRINGE IV SLOW PU PRN (01:54)
[2020-12-21] MEDS: LOTEPREDNOL ETABONATE 0.2% BOTH EYES SCH ×3 (08:39→16:13)
[2020-12-21] MEDS: Lidocaine PATCH 5% PATCH TRANSDERM SCH (08:45)
[2020-12-21] MEDS: Multivitamins/Minerals TAB PO SCH (08:45)
[2020-12-21] MEDS: HYDROcodone/ACETAMIN 5/325 mg TAB PO PRN ×3 (08:45→20:30)
[2020-12-21] MEDS: TERBINAFINE 1% TOPICAL SCH (08:46)
[2020-12-21 10:18] LABS: ABS Lymphocytes 0.5 10^3/ul (1.0-4.8); ABS Monocytes 0.5 10^3/ul (0-0.8); ABS Neutrophils 2.3 10^3/ul (1.5-7.7); Eosinophil % 1.4 %; Hematocrit 24 % (42-52); Lymphocyte % 13.7 %; Mean Corpuscular HGB Conc 34 g/dL (31-36); Mean Corpuscular Hemoglobin 32 pg (27-31); Mean Corpuscular Volume 96 fL (80-94); Mean Platelet Volume 8.3 fL (7.4-10.4); Platelet Count 23 10^3/uL (150-450); Red Cell Distribution Width 23 % (10-15); White Blood Count 3.4 10^3/uL (3.5-10.8)
[2020-12-21 10:20] LABS: INR 0.98 (0.82-1.09)
[2020-12-21 10:34] LABS: Albumin/Globulin Ratio 1.4 (1-3); Calcium 8.2 mg/dL (8.6-10.3); EGFR African American 281.7 (>60); EGFR Non-African American 232.8 (>60); Globulin 2.2 g/dL (2-4); Indirect Bilirubin 1.1 mg/dL (0.3-1.0); Potassium 3.5 mmol/L (3.5-5.0); Total Bilirubin 2.4 mg/dL (0.2-1.0); Total Protein 5.2 g/dL (6.4-8.9)
[2020-12-21] MEDS: Mometasone 220 MCG MDI INH SCH (19:11)
[2020-12-21] MEDS ORDERED: cefTRIAXone 1 gm/50 mL NS BAG 1 GM/50 ML BAG IVPB SCH (21:00)
[2020-12-21 21:04] LABS: Hematocrit 24 % (42-52); Hemoglobin 8.1 g/dL (14.0-18.0); Mean Corpuscular HGB Conc 34 g/dL (31-36); Mean Corpuscular Hemoglobin 33 pg (27-31); Mean Corpuscular Volume 96 fL (80-94); Mean Platelet Volume 7.9 fL (7.4-10.4); Platelet Count 26 10^3/uL (150-450); Red Blood Count 2.46 10^6 /uL (4.18-5.48); Red Cell Distribution Width 22 % (10-15)
[2020-12-21 21:10] LABS: Influenza A Molecular Negative (Negative); Influenza B Molecular Negative (Negative)
[2020-12-21 21:17] LABS: C Reactive Protein 33.81 mg/L (<8.01); Calcium 8.1 mg/dL (8.6-10.3); EGFR African American 244.3 (>60); EGFR Non-African American 201.9 (>60); Potassium 3.6 mmol/L (3.5-5.0)
[2020-12-21 21:29] LABS: ABS Lymphocytes 0.5 10^3/ul (1.0-4.8); ABS Monocytes 0.5 10^3/ul (0-0.8); Eosinophil % 1.1 %; Lymphocyte % 15.2 %; Nucleated Red Blood Cells % 0.1
[2020-12-22] MEDS: Lidocaine Patch REMOVE PATCH PATCH OFF SCH (00:42)
[2020-12-22] MEDS: LOTEPREDNOL ETABONATE 0.2% BOTH EYES SCH ×5 (00:42→21:06)
[2020-12-22] MEDS: HYDROcodone/ACETAMIN 5/325 mg TAB PO PRN (03:38)
[2020-12-22 06:10] LABS: ABS Lymphocytes 0.5 10^3/ul (1.0-4.8); ABS Monocytes 0.6 10^3/ul (0-0.8); ABS Neutrophils 2.4 10^3/ul (1.5-7.7); Eosinophil % 0.6 %; Hematocrit 25 % (42-52); Hemoglobin 8.5 g/dL (14.0-18.0); Mean Corpuscular HGB Conc 35 g/dL (31-36); Mean Corpuscular Hemoglobin 33 pg (27-31); Mean Corpuscular Volume 94 fL (80-94); Mean Platelet Volume 8.4 fL (7.4-10.4); Nucleated Red Blood Cells % 0.1; Platelet Count 30 10^3/uL (150-450); Red Blood Count 2.61 10^6 /uL (4.18-5.48); Red Cell Distribution Width 23 % (10-15); White Blood Count 3.5 10^3/uL (3.5-10.8)
[2020-12-22 06:19] LABS: Albumin 3.1 g/dL (3.2-5.2); Albumin/Globulin Ratio 1.3 (1-3); Calcium 8.3 mg/dL (8.6-10.3); EGFR Non-African American 207.4 (>60); Globulin 2.4 g/dL (2-4); Magnesium 1.4 mg/dL (1.9-2.7); Potassium 2.9 mmol/L (3.5-5.0); Total Protein 5.5 g/dL (6.4-8.9)
[2020-12-22] MEDS ORDERED: Potassium Chlor 20 meq TAB.ER PO ONE (08:00)
[2020-12-22] MEDS: LORazepam 2 mg VIAL 1 ml IV PUSH SCH ×3 (08:15→13:07)
[2020-12-22] MEDS: Lidocaine PATCH 5% PATCH TRANSDERM SCH (09:30)
[2020-12-22] MEDS: KCL 20 MEQ/100 ML IVPREMIX 20 MEQ/100 ML BAG IV SCH ×2 (09:54→12:21)
[2020-12-22] MEDS: Multivitamins/Minerals TAB PO SCH (09:55)
[2020-12-22] MEDS ORDERED: Magnesium Sulf 4 GM/100 ML IV 4,000 MG/100 ML BAG IVPB ONE (10:45)
[2020-12-22] MEDS: TERBINAFINE 1% TOPICAL SCH (11:14)
[2020-12-22] MEDS ORDERED: ZOSYN 3.375 GM x ONE DOSE over 30 miuntes IV (14:00)
[2020-12-22] MEDS ORDERED: Piperacillin/Tazobac ADVAN 3.375 GM in NS 0.9% 100 ml BAG 100 ML IV SCH (18:00)
[2020-12-22] MEDS: Mometasone 220 MCG MDI INH SCH (20:26)
[2020-12-22] MEDS: Piperacillin/Tazobac ADVAN 3.375 GM in NS 0.9% 100 ml BAG 100 ML IV SCH (21:09)
[2020-12-23] MEDS: Lidocaine Patch REMOVE PATCH PATCH OFF SCH (02:00)
[2020-12-23] MEDS: LORazepam 2 mg VIAL 1 ml IV PUSH SCH ×3 (03:13→13:29)
[2020-12-23] MEDS: Piperacillin/Tazobac ADVAN 3.375 GM in NS 0.9% 100 ml BAG 100 ML IV SCH ×3 (05:04→21:14)
[2020-12-23 05:46] LABS: Hematocrit 27 % (42-52); Hemoglobin 9.4 g/dL (14.0-18.0); Mean Corpuscular HGB Conc 35 g/dL (31-36); Mean Corpuscular Hemoglobin 33 pg (27-31); Mean Corpuscular Volume 96 fL (80-94); Mean Platelet Volume 8.4 fL (7.4-10.4); Platelet Count 56 10^3/uL (150-450); Red Blood Count 2.81 10^6 /uL (4.18-5.48); Red Cell Distribution Width 23 % (10-15); White Blood Count 5.1 10^3/uL (3.5-10.8)
[2020-12-23 05:55] LABS: Albumin 3.4 g/dL (3.2-5.2); Albumin/Globulin Ratio 1.4 (1-3); Calcium 8.3 mg/dL (8.6-10.3); EGFR Non-African American 186.7 (>60); Globulin 2.5 g/dL (2-4); Magnesium 1.8 mg/dL (1.9-2.7); Potassium 3.4 mmol/L (3.5-5.0); Total Bilirubin 2.2 mg/dL (0.2-1.0); Total Protein 5.9 g/dL (6.4-8.9)
[2020-12-23 06:04] LABS: ABS Lymphocytes 0.4 10^3/ul (1.0-4.8); ABS Monocytes 0.8 10^3/ul (0-0.8); ABS Neutrophils 3.8 10^3/ul (1.5-7.7); Eosinophil % 0.9 %; Lymphocyte % 7.1 %
[2020-12-23] MEDS ORDERED: Magnesium Sulfate 2 gm BAG 2 GM/50 ML BAG IVPB ONE (07:36)
[2020-12-23] MEDS ORDERED: Potassium Chlor 20 meq TAB.ER PO ONE (07:36)
[2020-12-23] MEDS: Multivitamins/Minerals TAB PO SCH (09:11)
[2020-12-23] MEDS: TERBINAFINE 1% TOPICAL SCH (09:14)
[2020-12-23] MEDS: LOTEPREDNOL ETABONATE 0.2% BOTH EYES SCH ×3 (09:15→17:05)
[2020-12-23] MEDS: Lidocaine PATCH 5% PATCH TRANSDERM SCH (09:15)
[2020-12-23] MEDS: Mometasone 220 MCG MDI INH SCH (19:13)
[2020-12-24] MEDS: Lidocaine Patch REMOVE PATCH PATCH OFF SCH
[2020-12-24] MEDS: LOTEPREDNOL ETABONATE 0.2% BOTH EYES SCH ×5 (03:16→21:07)
[2020-12-24] MEDS: Piperacillin/Tazobac ADVAN 3.375 GM in NS 0.9% 100 ml BAG 100 ML IV SCH ×3 (04:48→21:02)
[2020-12-24 04:49] LABS: Urine Appearance Clear; Urine Bilirubin Negative (Negative); Urine Blood Negative (Negative); Urine Color Amber; Urine Glucose Negative (Negative); Urine Ketones 1+ (Negative); Urine Nitrite Negative (Negative); Urine Protein Negative (Negative); Urine Specific Gravity 1.029 (1.002-1.030); Urine Urobilinogen Negative (Negative)
[2020-12-24 06:08] LABS: Albumin 3.3 g/dL (3.2-5.2); Albumin/Globulin Ratio 1.2 (1-3); Calcium 8.3 mg/dL (8.6-10.3); EGFR African American 265.5 (>60); EGFR Non-African American 219.4 (>60); Globulin 2.8 g/dL (2-4); Potassium 3.5 mmol/L (3.5-5.0); Total Bilirubin 1.9 mg/dL (0.2-1.0); Total Protein 6.1 g/dL (6.4-8.9)
[2020-12-24 06:58] LABS: Hematocrit 27 % (42-52); Mean Corpuscular HGB Conc 34 g/dL (31-36); Mean Corpuscular Hemoglobin 34 pg (27-31); Mean Corpuscular Volume 99 fL (80-94); Mean Platelet Volume 7.4 fL (7.4-10.4); Platelet Count 77 10^3/uL (150-450); Red Blood Count 2.68 10^6 /uL (4.18-5.48); Red Cell Distribution Width 23 % (10-15); White Blood Count 4.6 10^3/uL (3.5-10.8)
[2020-12-24 08:29] LABS: ABS Eosinophils 0.1 10^3/ul (0-0.6); ABS Lymphocytes 0.7 10^3/ul (1.0-4.8); ABS Monocytes 1.2 10^3/ul (0-0.8); ABS Neutrophils 2.5 10^3/ul (1.5-7.7); Eosinophil % 1.4 %; Lymphocyte % 15.7 %
[2020-12-24] MEDS: Multivitamins/Minerals TAB PO SCH (11:10)
[2020-12-24] MEDS: Lidocaine PATCH 5% PATCH TRANSDERM SCH (11:11)
[2020-12-24] MEDS: TERBINAFINE 1% TOPICAL SCH (11:16)
[2020-12-24] MEDS: HYDROcodone/ACETAMIN 5/325 mg TAB PO PRN ×2 (13:57→21:06)
[2020-12-24] MEDS: Mometasone 220 MCG MDI INH SCH (20:24)
[2020-12-25] MEDS: HYDROcodone/ACETAMIN 5/325 mg TAB PO PRN ×5 (03:02→21:21)
[2020-12-25] MEDS: Lidocaine Patch REMOVE PATCH PATCH OFF SCH ×2 (03:58→21:23)
[2020-12-25] MEDS: Piperacillin/Tazobac ADVAN 3.375 GM in NS 0.9% 100 ml BAG 100 ML IV SCH ×3 (05:04→21:21)
[2020-12-25 05:58] LABS: Albumin 2.9 g/dL (3.2-5.2); Calcium 7.8 mg/dL (8.6-10.3); Total Bilirubin 1.5 mg/dL (0.2-1.0)
[2020-12-25 06:04] LABS: EGFR African American 309.7 (>60); Globulin 2.8 g/dL (2-4); Total Protein 5.7 g/dL (6.4-8.9)
[2020-12-25 06:21] LABS: Potassium 3.2 mmol/L (3.5-5.0)
[2020-12-25 06:57] LABS: ABS Eosinophils 0.1 10^3/ul (0-0.6); ABS Lymphocytes 0.5 10^3/ul (1.0-4.8); ABS Monocytes 0.7 10^3/ul (0-0.8); ABS Neutrophils 1.4 10^3/ul (1.5-7.7); Eosinophil % 2.7 %; Hematocrit 26 % (42-52); Hemoglobin 8.9 g/dL (14.0-18.0); Lymphocyte % 17.3 %; Mean Corpuscular HGB Conc 34 g/dL (31-36); Mean Corpuscular Hemoglobin 34 pg (27-31); Mean Corpuscular Volume 99 fL (80-94); Mean Platelet Volume 7.6 fL (7.4-10.4); Nucleated Red Blood Cells % 0.3; Platelet Count 97 10^3/uL (150-450); Red Blood Count 2.61 10^6 /uL (4.18-5.48); Red Cell Distribution Width 23 % (10-15); White Blood Count 2.8 10^3/uL (3.5-10.8)
[2020-12-25] MEDS ORDERED: Potassium Chlor 20 meq TAB.ER PO ONE (08:47)
[2020-12-25] MEDS: Multivitamins/Minerals TAB PO SCH (09:36)
[2020-12-25] MEDS: Lidocaine PATCH 5% PATCH TRANSDERM SCH (09:38)
[2020-12-25] MEDS: LOTEPREDNOL ETABONATE 0.2% BOTH EYES SCH ×4 (09:39→21:23)
[2020-12-25] MEDS: TERBINAFINE 1% TOPICAL SCH (09:39)
[2020-12-25] MEDS: Clotrimazole 1% CREAM 30 gm TOPICAL SCH (13:22)
[2020-12-25] MEDS ORDERED: Magnesium Sulfate 2 gm BAG 2 GM/50 ML BAG IVPB ONE (16:18)
[2020-12-25] MEDS: Mometasone 220 MCG MDI INH SCH (18:54)
[2020-12-26] MEDS: HYDROcodone/ACETAMIN 5/325 mg TAB PO PRN ×4 (01:16→10:02)
[2020-12-26 05:18] LABS: ABS Eosinophils 0.1 10^3/ul (0-0.6); ABS Lymphocytes 0.5 10^3/ul (1.0-4.8); ABS Monocytes 0.8 10^3/ul (0-0.8); ABS Neutrophils 1.2 10^3/ul (1.5-7.7); Eosinophil % 3.1 %; Hematocrit 26 % (42-52); Hemoglobin 8.6 g/dL (14.0-18.0); Lymphocyte % 17.7 %; Mean Corpuscular HGB Conc 33 g/dL (31-36); Mean Corpuscular Hemoglobin 34 pg (27-31); Mean Corpuscular Volume 103 fL (80-94); Nucleated Red Blood Cells % 0.1; Platelet Count 115 10^3/uL (150-450); Red Blood Count 2.53 10^6 /uL (4.18-5.48); Red Cell Distribution Width 23 % (10-15); White Blood Count 2.6 10^3/uL (3.5-10.8)
[2020-12-26 05:20] LABS: Calcium 8.1 mg/dL (8.6-10.3); Magnesium 1.9 mg/dL (1.9-2.7)
[2020-12-26 05:26] LABS: EGFR African American 265.5 (>60); EGFR Non-African American 219.4 (>60)
[2020-12-26] MEDS: Piperacillin/Tazobac ADVAN 3.375 GM in NS 0.9% 100 ml BAG 100 ML IV SCH ×2 (05:45→13:52)
[2020-12-26] MEDS: Multivitamins/Minerals TAB PO SCH (08:25)
[2020-12-26] MEDS: Lidocaine PATCH 5% PATCH TRANSDERM SCH (08:28)
[2020-12-26] MEDS: LOTEPREDNOL ETABONATE 0.2% BOTH EYES SCH ×4 (09:36→20:50)
[2020-12-26] MEDS ORDERED: Morphine 2 MG/ML SYRINGE IV ONE ×2 (10:01→11:25)
[2020-12-26] MEDS: Clotrimazole 1% CREAM 30 gm TOPICAL SCH (10:51)
[2020-12-26 13:17] LABS: Albumin 3.1 g/dL (3.2-5.2); Indirect Bilirubin 0.7 mg/dL (0.3-1.0); Total Bilirubin 1.1 mg/dL (0.2-1.0)
[2020-12-26 13:23] LABS: Albumin/Globulin Ratio 1.3 (1-3); Globulin 2.3 g/dL (2-4); Total Protein 5.4 g/dL (6.4-8.9)
[2020-12-26] MEDS: Mometasone 220 MCG MDI INH SCH (19:12)
[2020-12-26] MEDS: Lidocaine Patch REMOVE PATCH PATCH OFF SCH (20:50)
[2020-12-27] MEDS: LOTEPREDNOL ETABONATE 0.2% BOTH EYES SCH ×4 (09:23→21:38)
[2020-12-27] MEDS: Lidocaine PATCH 5% PATCH TRANSDERM SCH (09:24)
[2020-12-27] MEDS: Multivitamins/Minerals TAB PO SCH (09:24)
[2020-12-27] MEDS: Clotrimazole 1% CREAM 30 gm TOPICAL SCH (09:24)
[2020-12-27] MEDS: Mometasone 220 MCG MDI INH SCH (20:11)
[2020-12-28] MEDS: Lidocaine Patch REMOVE PATCH PATCH OFF SCH ×2 (04:33→20:11)
[2020-12-28 05:58] LABS: ABS Basophils 0.1 10^3/ul (0-0.2); ABS Eosinophils 0.1 10^3/ul (0-0.6); ABS Lymphocytes 0.5 10^3/ul (1.0-4.8); ABS Monocytes 0.8 10^3/ul (0-0.8); ABS Neutrophils 1.2 10^3/ul (1.5-7.7); Eosinophil % 2.7 %; Hematocrit 27 % (42-52); Hemoglobin 9.1 g/dL (14.0-18.0); Lymphocyte % 18.5 %; Mean Corpuscular HGB Conc 34 g/dL (31-36); Mean Corpuscular Hemoglobin 34 pg (27-31); Mean Corpuscular Volume 101 fL (80-94); Mean Platelet Volume 8.3 fL (7.4-10.4); Nucleated Red Blood Cells % 0.1; Platelet Count 193 10^3/uL (150-450); Red Blood Count 2.65 10^6 /uL (4.18-5.48); Red Cell Distribution Width 22 % (10-15); White Blood Count 2.7 10^3/uL (3.5-10.8)
[2020-12-28 06:14] LABS: Albumin 3.1 g/dL (3.2-5.2); Albumin/Globulin Ratio 1.1 (1-3); Calcium 8.7 mg/dL (8.6-10.3); EGFR African American 220.4 (>60); EGFR Non-African American 182.2 (>60); Globulin 2.8 g/dL (2-4); Magnesium 1.9 mg/dL (1.9-2.7); Potassium 4.4 mmol/L (3.5-5.0); Total Protein 5.9 g/dL (6.4-8.9)
[2020-12-28] MEDS: Lidocaine PATCH 5% PATCH TRANSDERM SCH (08:08)
[2020-12-28] MEDS: Multivitamins/Minerals TAB PO SCH (08:10)
[2020-12-28] MEDS: LOTEPREDNOL ETABONATE 0.2% BOTH EYES SCH ×4 (08:11→20:11)
[2020-12-28] MEDS: Clotrimazole 1% CREAM 30 gm TOPICAL SCH (08:14)
[2020-12-28] MEDS ORDERED: Lidocaine PATCH 5% PATCH TRANSDERM ONE (11:57)
[2020-12-28] MEDS: Mometasone 220 MCG MDI INH SCH (20:16)
[2020-12-28] MEDS ORDERED: Lidocaine Patch REMOVE PATCH PATCH OFF SCH (21:00)
[2020-12-29] MEDS: Lidocaine PATCH 5% PATCH TRANSDERM SCH (08:50)
[2020-12-29] MEDS: Multivitamins/Minerals TAB PO SCH (08:52)
[2020-12-29] MEDS: Clotrimazole 1% CREAM 30 gm TOPICAL SCH (08:52)
[2020-12-29] MEDS: LOTEPREDNOL ETABONATE 0.2% BOTH EYES SCH ×4 (08:53→23:13)
[2020-12-29] MEDS: Mometasone 220 MCG MDI INH SCH (19:55)
[2020-12-29] MEDS: Lidocaine Patch REMOVE PATCH PATCH OFF SCH (21:00)
[2020-12-30] MEDS: Multivitamins/Minerals TAB PO SCH (08:26)
[2020-12-30] MEDS: Lidocaine PATCH 5% PATCH TRANSDERM SCH (08:27)
[2020-12-30] MEDS: LOTEPREDNOL ETABONATE 0.2% BOTH EYES SCH ×2 (08:27→13:04)
[2020-12-30] MEDS: Clotrimazole 1% CREAM 30 gm TOPICAL SCH (10:13)
[2020-12-30 15:32] VITALS: BP 107/63
== END 2020-12-30 16:25 | DRG 342 ==
LOC: ED 03:44 → MED 11:04
PROVIDERS: ADMIT Internal Medicine; ATTEND Hospitalist

== ENCOUNTER 2021-01-27 22:44 | Inpatient (IN) ==
[2021-01-27] MEDS ORDERED: Thiamine 100 MG/ML 2 ml VIAL 100 MG, Folic Acid IV 1 MG, Multiple Vitamin IV ADULT 10 M... IV ONE (23:47)
[2021-01-28] MEDS ORDERED: Iohexol 300 (CONTRAST) 10 ML SDV IV ONE (00:22)
[2021-01-28 01:19] LABS: ABS Eosinophils 0.1 10^3/ul (0-0.6); ABS Monocytes 0.7 10^3/ul (0-0.8); ABS Neutrophils 4.7 10^3/ul (1.5-7.7); Eosinophil % 0.9 %; Hematocrit 39 % (42-52); Hemoglobin 13.3 g/dL (14.0-18.0); Lymphocyte % 15.2 %; Mean Corpuscular HGB Conc 35 g/dL (31-36); Mean Corpuscular Hemoglobin 34 pg (27-31); Mean Corpuscular Volume 99 fL (80-94); Mean Platelet Volume 7.6 fL (7.4-10.4); Platelet Count 54 10^3/uL (150-450); Red Cell Distribution Width 15 % (10-15); White Blood Count 6.5 10^3/uL (3.5-10.8)
[2021-01-28 01:28] LABS: Activated Partial Thrombo Time 25.8 seconds (26.0-38.0)
[2021-01-28 01:31] LABS: Albumin 4.1 g/dL (3.2-5.2); Albumin/Globulin Ratio 1.5 (1-3); Calcium 8.7 mg/dL (8.6-10.3); EGFR African American 220.4 (>60); EGFR Non-African American 182.2 (>60); Globulin 2.8 g/dL (2-4); Magnesium 1.8 mg/dL (1.9-2.7); Total Bilirubin 0.7 mg/dL (0.2-1.0); Total Protein 6.9 g/dL (6.4-8.9)
[2021-01-28 01:35] LABS: BNP 121 pg/mL (<=100)
[2021-01-28 01:44] LABS: Urine Benzodiazepine Screen None Detected (None Detect); Urine Cannabinoids Screen None Detected (None Detect); Urine Opiates Screen None Detected (None Detect)
[2021-01-28 01:46] LABS: TSH Ultra Thyroid Stim Horm 0.81 mcIU/mL (0.34-5.60)
[2021-01-28] MEDS ORDERED: Lactated Ringers 1000 ml BAG 1,000 ML IV SCH ×2 (03:00→06:00)
[2021-01-28] MEDS ORDERED: Magnesium Hydroxide LIQ 30 ML UDC PO PRN (03:21)
[2021-01-28] MEDS ORDERED: NS 0.9% 1000 ml BAG 1,000 ML IV SCH (03:30)
[2021-01-28] MEDS ORDERED: LORazepam 2 mg VIAL 1 ml IV PUSH SCH (04:00)
[2021-01-28] MEDS ORDERED: Ondansetron 4 mg VIAL 2 MG/ML 2 ml VIAL IV ONE (04:42)
[2021-01-28] MEDS: Lactated Ringers 1000 ml BAG 1,000 ML IV SCH ×2 (06:33→10:13)
[2021-01-28 06:54] LABS: ABS Lymphocytes 0.7 10^3/ul (1.0-4.8); ABS Monocytes 0.5 10^3/ul (0-0.8); ABS Neutrophils 3.7 10^3/ul (1.5-7.7); Eosinophil % 0.9 %; Hematocrit 34 % (42-52); Hemoglobin 11.8 g/dL (14.0-18.0); Lymphocyte % 13.6 %; Mean Corpuscular HGB Conc 35 g/dL (31-36); Mean Corpuscular Hemoglobin 35 pg (27-31); Mean Corpuscular Volume 99 fL (80-94); Mean Platelet Volume 7.3 fL (7.4-10.4); Platelet Count 41 10^3/uL (150-450); Red Blood Count 3.37 10^6 /uL (4.18-5.48); Red Cell Distribution Width 14 % (10-15)
[2021-01-28 07:13] LABS: Albumin 3.7 g/dL (3.2-5.2); Albumin/Globulin Ratio 1.5 (1-3); Calcium 8.2 mg/dL (8.6-10.3); EGFR African American 273.4 (>60); EGFR Non-African American 225.9 (>60); Globulin 2.4 g/dL (2-4); Magnesium 1.5 mg/dL (1.9-2.7); Potassium 3.9 mmol/L (3.5-5.0); Total Bilirubin 0.7 mg/dL (0.2-1.0); Total Protein 6.1 g/dL (6.4-8.9)
[2021-01-28] MEDS ORDERED: Lorazepam PYXIS KEY PRN (08:36)
[2021-01-28] MEDS ORDERED: Magnesium Sulfate 2 gm BAG 2 GM/50 ML BAG IVPB ONE (08:45)
[2021-01-28] MEDS ORDERED: CALCIUM GLUCONATE 1GM/50ML NS 1 GM/50 ML BAG IV ONE (08:46)
[2021-01-28] MEDS: Multivitamins/Minerals TAB PO SCH (10:14)
[2021-01-28] MEDS: Lidocaine PATCH 5% PATCH TRANSDERM SCH (10:16)
[2021-01-28] MEDS: LOTEPREDNOL ETABONATE 0.2% BOTH EYES SCH ×4 (10:17→21:13)
[2021-01-28] MEDS: Mometasone 220 MCG MDI INH SCH (20:43)
[2021-01-28] MEDS: Lidocaine Patch REMOVE PATCH PATCH OFF SCH (21:30)
[2021-01-29 07:06] LABS: EGFR Non-African American 186.7 (>60); Magnesium 1.7 mg/dL (1.9-2.7)
[2021-01-29 07:16] LABS: ABS Eosinophils 0.1 10^3/ul (0-0.6); ABS Lymphocytes 0.6 10^3/ul (1.0-4.8); ABS Monocytes 0.4 10^3/ul (0-0.8); ABS Neutrophils 2.2 10^3/ul (1.5-7.7); Eosinophil % 1.7 %; Hematocrit 33 % (42-52); Hemoglobin 11.5 g/dL (14.0-18.0); Lymphocyte % 18.6 %; Mean Corpuscular HGB Conc 35 g/dL (31-36); Mean Corpuscular Hemoglobin 35 pg (27-31); Mean Corpuscular Volume 99 fL (80-94); Nucleated Red Blood Cells % 0.1; Platelet Count 28 10^3/uL (150-450); Red Cell Distribution Width 14 % (10-15); White Blood Count 3.3 10^3/uL (3.5-10.8)
[2021-01-29 07:36] LABS: Potassium 3.6 mmol/L (3.5-5.0)
[2021-01-29] MEDS: Multivitamins/Minerals TAB PO SCH (08:39)
[2021-01-29] MEDS: Lidocaine PATCH 5% PATCH TRANSDERM SCH (08:39)
[2021-01-29] MEDS: LOTEPREDNOL ETABONATE 0.2% BOTH EYES SCH ×4 (08:41→20:09)
[2021-01-29] MEDS ORDERED: Magnesium Sulfate 2 gm BAG 2 GM/50 ML BAG IVPB ONE (08:55)
[2021-01-29] MEDS: Mometasone 220 MCG MDI INH SCH (20:03)
[2021-01-29] MEDS: Lidocaine Patch REMOVE PATCH PATCH OFF SCH (20:18)
[2021-01-30] MEDS: LORazepam 2 mg VIAL 1 ml IV PUSH SCH ×5 (01:20→11:11)
[2021-01-30 06:41] LABS: ABS Eosinophils 0.1 10^3/ul (0-0.6); ABS Lymphocytes 0.5 10^3/ul (1.0-4.8); ABS Monocytes 0.6 10^3/ul (0-0.8); ABS Neutrophils 1.9 10^3/ul (1.5-7.7); Eosinophil % 2.1 %; Hematocrit 33 % (42-52); Hemoglobin 11.4 g/dL (14.0-18.0); Lymphocyte % 16.4 %; Mean Corpuscular HGB Conc 35 g/dL (31-36); Mean Corpuscular Hemoglobin 35 pg (27-31); Mean Corpuscular Volume 99 fL (80-94); Mean Platelet Volume 9.7 fL (7.4-10.4); Platelet Count 36 10^3/uL (150-450); Red Cell Distribution Width 14 % (10-15); White Blood Count 3.1 10^3/uL (3.5-10.8)
[2021-01-30] MEDS: Multivitamins/Minerals TAB PO SCH (07:37)
[2021-01-30] MEDS: Lidocaine PATCH 5% PATCH TRANSDERM SCH (07:38)
[2021-01-30] MEDS ORDERED: Magnesium Sulfate 2 gm BAG 2 GM/50 ML BAG IVPB ONE (08:40)
[2021-01-30] MEDS: LOTEPREDNOL ETABONATE 0.2% BOTH EYES SCH ×4 (09:18→22:08)
[2021-01-30] MEDS ORDERED: NS 0.9% 1000 ml BAG 1,000 ML IV SCH (14:15)
[2021-01-30] MEDS: Mometasone 220 MCG MDI INH SCH (19:29)
[2021-01-30] MEDS: Lidocaine Patch REMOVE PATCH PATCH OFF SCH (22:33)
[2021-01-31 06:58] LABS: Calcium 8.8 mg/dL (8.6-10.3); EGFR Non-African American 207.4 (>60); Magnesium 1.6 mg/dL (1.9-2.7); Potassium 3.4 mmol/L (3.5-5.0)
[2021-01-31] MEDS: Multivitamins/Minerals TAB PO SCH (08:38)
[2021-01-31] MEDS: LOTEPREDNOL ETABONATE 0.2% BOTH EYES SCH ×4 (08:39→22:29)
[2021-01-31] MEDS: Lidocaine PATCH 5% PATCH TRANSDERM SCH (08:39)
[2021-01-31] MEDS ORDERED: Magnesium Sulfate 2 gm BAG 2 GM/50 ML BAG IVPB ONE (09:00)
[2021-01-31] MEDS ORDERED: Potassium Chlor 20 meq TAB.ER PO ONE (09:00)
[2021-01-31] MEDS: Mometasone 220 MCG MDI INH SCH (19:45)
[2021-01-31] MEDS: Lidocaine Patch REMOVE PATCH PATCH OFF SCH (20:50)
[2021-02-01] MEDS: Multivitamins/Minerals TAB PO SCH (08:04)
[2021-02-01] MEDS: Lidocaine PATCH 5% PATCH TRANSDERM SCH (08:05)
[2021-02-01] MEDS: LOTEPREDNOL ETABONATE 0.2% BOTH EYES SCH ×4 (08:06→23:46)
[2021-02-01] MEDS ORDERED: Magnesium Sulfate 2 gm BAG 2 GM/50 ML BAG IVPB ONE (08:44)
[2021-02-01] MEDS ORDERED: Potassium Chlor 20 meq TAB.ER PO ONE (08:44)
[2021-02-01 10:50] LABS: ABS Eosinophils 0.1 10^3/ul (0-0.6); ABS Lymphocytes 0.7 10^3/ul (1.0-4.8); ABS Monocytes 1.1 10^3/ul (0-0.8); ABS Neutrophils 1.9 10^3/ul (1.5-7.7); Eosinophil % 3.1 %; Hematocrit 32 % (42-52); Hemoglobin 10.9 g/dL (14.0-18.0); Lymphocyte % 18.6 %; Mean Corpuscular HGB Conc 34 g/dL (31-36); Mean Corpuscular Hemoglobin 34 pg (27-31); Mean Corpuscular Volume 101 fL (80-94); Mean Platelet Volume 8.2 fL (7.4-10.4); Nucleated Red Blood Cells % 0.1; Platelet Count 94 10^3/uL (150-450); Red Blood Count 3.16 10^6 /uL (4.18-5.48); Red Cell Distribution Width 14 % (10-15); White Blood Count 3.8 10^3/uL (3.5-10.8)
[2021-02-01] MEDS: Heparin 5000 UNITS/ML 1 mL VIAL SUBCUT SCH ×2 (13:36→22:03)
[2021-02-01] MEDS: Mometasone 220 MCG MDI INH SCH (19:47)
[2021-02-01] MEDS: Lidocaine Patch REMOVE PATCH PATCH OFF SCH (22:50)
[2021-02-02] MEDS: Heparin 5000 UNITS/ML 1 mL VIAL SUBCUT SCH ×3 (06:35→22:50)
[2021-02-02 07:21] LABS: Hematocrit 33 % (42-52); Hemoglobin 11.3 g/dL (14.0-18.0); Mean Corpuscular HGB Conc 35 g/dL (31-36); Mean Corpuscular Hemoglobin 35 pg (27-31); Mean Corpuscular Volume 100 fL (80-94); Mean Platelet Volume 8.5 fL (7.4-10.4); Platelet Count 87 10^3/uL (150-450); Red Blood Count 3.25 10^6 /uL (4.18-5.48); Red Cell Distribution Width 14 % (10-15)
[2021-02-02 07:34] LABS: Albumin 3.6 g/dL (3.2-5.2); Albumin/Globulin Ratio 1.2 (1-3); EGFR Non-African American 186.7 (>60); Globulin 2.9 g/dL (2-4); Magnesium 1.8 mg/dL (1.9-2.7); Potassium 4.2 mmol/L (3.5-5.0); Total Bilirubin 0.6 mg/dL (0.2-1.0); Total Protein 6.5 g/dL (6.4-8.9)
[2021-02-02] MEDS: Multivitamins/Minerals TAB PO SCH (09:15)
[2021-02-02] MEDS: Lidocaine PATCH 5% PATCH TRANSDERM SCH (09:17)
[2021-02-02] MEDS: LOTEPREDNOL ETABONATE 0.2% BOTH EYES SCH ×4 (10:03→20:14)
[2021-02-02] MEDS ORDERED: Magnesium Sulfate IV 1GM/100ML 1 GM/100 ML BAG IV ONE (14:44)
[2021-02-02] MEDS: Lidocaine Patch REMOVE PATCH PATCH OFF SCH (20:30)
[2021-02-02] MEDS: Mometasone 220 MCG MDI INH SCH (21:20)
[2021-02-03] MEDS: Heparin 5000 UNITS/ML 1 mL VIAL SUBCUT SCH ×3 (05:27→21:45)
[2021-02-03 05:53] LABS: Calcium 9.1 mg/dL (8.6-10.3); EGFR African American 215.1 (>60); EGFR Non-African American 177.8 (>60); Magnesium 1.8 mg/dL (1.9-2.7); Potassium 4.1 mmol/L (3.5-5.0)
[2021-02-03] MEDS ORDERED: Magnesium Sulfate IV 1GM/100ML 1 GM/100 ML BAG IV ONE (07:47)
[2021-02-03] MEDS: Multivitamins/Minerals TAB PO SCH (09:44)
[2021-02-03] MEDS: LOTEPREDNOL ETABONATE 0.2% BOTH EYES SCH ×4 (09:47→21:49)
[2021-02-03] MEDS: Lidocaine PATCH 5% PATCH TRANSDERM SCH (09:48)
[2021-02-03] MEDS: Mometasone 220 MCG MDI INH SCH (20:42)
[2021-02-03] MEDS: Lidocaine Patch REMOVE PATCH PATCH OFF SCH (21:59)
[2021-02-04] MEDS: Heparin 5000 UNITS/ML 1 mL VIAL SUBCUT SCH ×4 (06:35→21:12)
[2021-02-04] MEDS: Multivitamins/Minerals TAB PO SCH (08:08)
[2021-02-04] MEDS: Lidocaine PATCH 5% PATCH TRANSDERM SCH ×2 (08:09→10:13)
[2021-02-04] MEDS: LOTEPREDNOL ETABONATE 0.2% BOTH EYES SCH ×4 (08:09→21:17)
[2021-02-04] MEDS: Mometasone 220 MCG MDI INH SCH (19:45)
[2021-02-04] MEDS: Lidocaine Patch REMOVE PATCH PATCH OFF SCH (21:17)
[2021-02-05] MEDS: Heparin 5000 UNITS/ML 1 mL VIAL SUBCUT SCH ×3 (06:07→20:52)
[2021-02-05] MEDS: LOTEPREDNOL ETABONATE 0.2% BOTH EYES SCH ×4 (08:46→20:54)
[2021-02-05] MEDS: Multivitamins/Minerals TAB PO SCH (09:02)
[2021-02-05] MEDS: Lidocaine PATCH 5% PATCH TRANSDERM SCH (09:03)
[2021-02-05] MEDS: Mometasone 220 MCG MDI INH SCH (19:54)
[2021-02-05] MEDS: Lidocaine Patch REMOVE PATCH PATCH OFF SCH (20:56)
[2021-02-06] MEDS: Heparin 5000 UNITS/ML 1 mL VIAL SUBCUT SCH ×3 (05:34→20:58)
[2021-02-06] MEDS: LOTEPREDNOL ETABONATE 0.2% BOTH EYES SCH ×4 (07:39→20:54)
[2021-02-06] MEDS: Multivitamins/Minerals TAB PO SCH (08:33)
[2021-02-06] MEDS: Lidocaine PATCH 5% PATCH TRANSDERM SCH (08:34)
[2021-02-06] MEDS: Mometasone 220 MCG MDI INH SCH (20:49)
[2021-02-06] MEDS: Lidocaine Patch REMOVE PATCH PATCH OFF SCH (21:05)
[2021-02-07] MEDS: Heparin 5000 UNITS/ML 1 mL VIAL SUBCUT SCH (05:51)
[2021-02-07] MEDS: Multivitamins/Minerals TAB PO SCH (09:11)
[2021-02-07] MEDS: Lidocaine PATCH 5% PATCH TRANSDERM SCH (09:11)
[2021-02-07] MEDS: LOTEPREDNOL ETABONATE 0.2% BOTH EYES SCH (09:24)
[2021-02-07 09:25] VITALS: BP 137/72
== END 2021-02-07 10:45 | DRG 58 ==
LOC: ED 22:44 → MED 22:44
PROVIDERS: ADMIT Hospitalist; ATTEND Internal Medicine

== ENCOUNTER 2021-07-17 17:08 | Inpatient (IN) ==
[2021-07-17 19:08] LABS: ABS Lymphocytes 0.3 10^3/ul (1.0-4.8); ABS Neutrophils 6.2 10^3/ul (1.5-7.7); Hematocrit 34 % (42-52); Hemoglobin 11.7 g/dL (14.0-18.0); Mean Corpuscular HGB Conc 35 g/dL (31-36); Mean Corpuscular Hemoglobin 36 pg (27-31); Mean Corpuscular Volume 104 fL (80-94); Mean Platelet Volume 8.3 fL (7.4-10.4); Platelet Count 37 10^3/uL (150-450); Red Blood Count 3.27 10^6 /uL (4.18-5.48); Red Cell Distribution Width 13 % (10-15); White Blood Count 7.5 10^3/uL (3.5-10.8)
[2021-07-17 19:28] LABS: ALT 63 U/L (7-52); AST 198 U/L (13-39); Albumin 3.2 g/dL (3.2-5.2); Albumin/Globulin Ratio 1.2 (1-3); Alkaline Phosphatase 531 U/L (35-149); Anion Gap 11 mmol/L (2-11); Blood Urea Nitrogen 5 mg/dL (6-24); CO2 Carbon Dioxide 27 mmol/L (22-32); Calcium 7.9 mg/dL (8.6-10.3); Chloride 90 mmol/L (101-111); Creatine Kinase 494 U/L (10-223); Globulin 2.6 g/dL (2-4); Glucose 113 mg/dL (70-100); Magnesium 1.7 mg/dL (1.9-2.7); Potassium 3.7 mmol/L (3.5-5.0); Sodium 128 mmol/L (135-145); Total Protein 5.8 g/dL (6.4-8.9); eGFR CKD-EPI 120.5 (>60)
[2021-07-17] MEDS ORDERED: Thiamine 100 MG/ML 2 ml VIAL 100 MG, Folic Acid IV 1 MG, Multiple Vitamin IV ADULT 10 M... IV ONE (19:30)
[2021-07-17 19:31] LABS: Troponin I 0.03 ng/mL (<0.03)
[2021-07-17 20:03] LABS: Alcohol, S 304 mg/dL (<13)
[2021-07-17 20:19] LABS: TSH Ultra Thyroid Stim Horm 0.65 mcIU/mL (0.34-5.60)
[2021-07-17 20:30] LABS: Vitamin B12 > 1450 pg/mL (180-914)
[2021-07-17 20:32] LABS: INR 1.29 (0.86-1.15)
[2021-07-17] MEDS ORDERED: Ondansetron 4 mg VIAL 2 MG/ML 2 ml VIAL IV PRN (22:20)
[2021-07-17] MEDS ORDERED: Lactated Ringers 1000 ml BAG 1,000 ML IV ONE (22:20)
[2021-07-17] MEDS ORDERED: Magnesium Sulfate 2 gm BAG 2 GM/50 ML BAG IVPB ONE (22:20)
[2021-07-17 22:53] LABS: Activated Partial Thrombo Time 33.7 seconds (26.0-38.0)
[2021-07-17] MEDS: LORazepam 2 mg VIAL 1 ml IV SCH (23:13)
[2021-07-17 23:26] LABS: Urine Appearance Clear; Urine Bilirubin 1+ (Negative); Urine Blood 2+ (Negative); Urine Color Amber; Urine Glucose Negative (Negative); Urine Ketones Negative (Negative); Urine Nitrite Negative (Negative); Urine Protein 1+(30 mg/dL) (Negative); Urine Specific Gravity 1.019 (1.002-1.030); Urine Urobilinogen Positive (Negative)
[2021-07-17] MEDS: Lactulose 30 ml UDC PO SCH (23:30)
[2021-07-17 23:48] LABS: Rapid COVID-19 Molecular Undetected (Undetected)
[2021-07-17 23:49] LABS: Urine Bacteria Absent (Absent); Urine Red Blood Cell Trace(0-2/hpf) (Absent); Urine Squamous Epithelial Cell Present (Absent); Urine White Blood Cell Absent (Absent)
[2021-07-18] MEDS: LORazepam 2 mg VIAL 1 ml IV PUSH SCH ×4 (01:33→21:27)
[2021-07-18] MEDS ORDERED: Lactated Ringers 1000 ml BAG 1,000 ML IV ONE (04:55)
[2021-07-18] MEDS ORDERED: Thiamine 100 MG/ML 2 ml VIAL (200 mg) ONE (04:58)
[2021-07-18] MEDS ORDERED: NS 0.9% 1000 ml BAG 1,000 ML ONE (04:58)
[2021-07-18] MEDS: Fluticasone HFA 110 mcg(NF) MDI INH SCH ×2 (05:05→08:37)
[2021-07-18 05:19] LABS: Influenza A Molecular Negative (Negative); Influenza B Molecular Negative (Negative)
[2021-07-18 07:13] LABS: ABS Lymphocytes 0.3 10^3/ul (1.0-4.8); ABS Monocytes 0.5 10^3/ul (0-0.8); ABS Neutrophils 2.5 10^3/ul (1.5-7.7); Eosinophil % 0.2 %; Hematocrit 29 % (42-52); Hemoglobin 9.9 g/dL (14.0-18.0); Lymphocyte % 9.2 %; Mean Corpuscular HGB Conc 35 g/dL (31-36); Mean Corpuscular Hemoglobin 36 pg (27-31); Mean Corpuscular Volume 103 fL (80-94); Mean Platelet Volume 8.4 fL (7.4-10.4); Platelet Count 24 10^3/uL (150-450); Red Blood Count 2.77 10^6 /uL (4.18-5.48); Red Cell Distribution Width 13 % (10-15); White Blood Count 3.4 10^3/uL (3.5-10.8)
[2021-07-18 07:22] LABS: ALT 54 U/L (7-52); AST 171 U/L (13-39); Albumin 2.8 g/dL (3.2-5.2); Albumin/Globulin Ratio 1.3 (1-3); Alkaline Phosphatase 485 U/L (35-149); Anion Gap 8 mmol/L (2-11); Blood Urea Nitrogen 6 mg/dL (6-24); CO2 Carbon Dioxide 29 mmol/L (22-32); Calcium 7.6 mg/dL (8.6-10.3); Chloride 94 mmol/L (101-111); Creatine Kinase 442 U/L (10-223); Globulin 2.2 g/dL (2-4); Glucose 84 mg/dL (70-100); Potassium 3.1 mmol/L (3.5-5.0); Sodium 131 mmol/L (135-145); eGFR CKD-EPI 117.5 (>60)
[2021-07-18 07:27] LABS: Troponin I 0.03 ng/mL (<0.03)
[2021-07-18] MEDS: LORazepam 2 mg VIAL 1 ml IV SCH ×2 (07:27→15:05)
[2021-07-18] MEDS: Lactulose 30 ml UDC PO SCH ×4 (13:34→20:54)
[2021-07-18] MEDS: Multivitamins/Minerals TAB PO SCH (13:34)
[2021-07-18] MEDS ORDERED: Potassium Chlor 20 meq TAB.ER PO ONE ×2 (14:30→19:00)
[2021-07-18 20:14] LABS: Prealbumin 14 mg/dL (18-38)
[2021-07-18] MEDS: KCL 10 MEQ/50 ML IVPREMIX 10 MEQ/50 ML BAG IV SCH ×2 (20:54→22:49)
[2021-07-18] MEDS ORDERED: Lorazepam PYXIS KEY ONE (21:17)
[2021-07-18] MEDS: LORazepam 2 mg VIAL 1 ml ONE (22:46)
[2021-07-18] MEDS: Mometasone 220 MCG MDI INH SCH (23:38)
[2021-07-19] MEDS: KCL 10 MEQ/50 ML IVPREMIX 10 MEQ/50 ML BAG IV SCH ×4 (00:43→06:16)
[2021-07-19] MEDS ORDERED: Lorazepam PYXIS KEY PRN (00:52)
[2021-07-19] MEDS: LORazepam 2 mg VIAL 1 ml ONE (00:55)
[2021-07-19] MEDS: LORazepam 2 mg VIAL 1 ml IV PUSH SCH ×6 (03:48→22:45)
[2021-07-19] MEDS: LORazepam 2 mg VIAL 1 ml IV SCH ×2 (03:48→15:29)
[2021-07-19 07:37] LABS: Albumin 2.8 g/dL (3.2-5.2); Albumin/Globulin Ratio 1.3 (1-3); Calcium 7.7 mg/dL (8.6-10.3); Globulin 2.2 g/dL (2-4); Magnesium 1.5 mg/dL (1.9-2.7); Potassium 2.9 mmol/L (3.5-5.0); Total Bilirubin 9.1 mg/dL (0.2-1.0); eGFR CKD-EPI 116.8 (>60)
[2021-07-19 07:39] LABS: Hematocrit 27 % (42-52); Hemoglobin 9.7 g/dL (14.0-18.0); Mean Corpuscular HGB Conc 35 g/dL (31-36); Mean Corpuscular Hemoglobin 37 pg (27-31); Mean Corpuscular Volume 104 fL (80-94); Mean Platelet Volume 9.3 fL (7.4-10.4); Platelet Count 28 10^3/uL (150-450); Red Blood Count 2.65 10^6 /uL (4.18-5.48); Red Cell Distribution Width 13 % (10-15); White Blood Count 4.8 10^3/uL (3.5-10.8)
[2021-07-19] MEDS ORDERED: Morphine 2 MG/ML SYRINGE IV ONE (10:36)
[2021-07-19] MEDS: Lactulose 30 ml UDC PO SCH ×4 (10:36→21:15)
[2021-07-19] MEDS ORDERED: Magnesium Sulf 4 GM/100 ML IV 4,000 MG/100 ML BAG IVPB ONE (11:11)
[2021-07-19] MEDS: Multivitamins/Minerals TAB PO SCH (13:20)
[2021-07-19] MEDS: KCL 20 MEQ/100 ML IVPREMIX 20 MEQ/100 ML BAG IV SCH ×2 (17:03→20:26)
[2021-07-19 19:09] LABS: ABS Lymphocytes 0.4 10^3/ul (1.0-4.8); ABS Monocytes 0.6 10^3/ul (0-0.8); ABS Neutrophils 4.1 10^3/ul (1.5-7.7); Eosinophil % 0.2 %; Hematocrit 25 % (42-52); Hemoglobin 8.8 g/dL (14.0-18.0); Lymphocyte % 8.4 %; Mean Corpuscular HGB Conc 35 g/dL (31-36); Mean Corpuscular Hemoglobin 36 pg (27-31); Mean Corpuscular Volume 104 fL (80-94); Mean Platelet Volume 9.3 fL (7.4-10.4); Platelet Count 33 10^3/uL (150-450); Red Blood Count 2.42 10^6 /uL (4.18-5.48); Red Cell Distribution Width 13 % (10-15); White Blood Count 5.1 10^3/uL (3.5-10.8)
[2021-07-19] MEDS: KCL premix 10 MEQ/50 ML x 4 RUNS IV SCH ×2 (21:07→22:33)
[2021-07-19] MEDS: Mometasone 220 MCG MDI INH SCH (21:52)
[2021-07-20] MEDS: KCL premix 10 MEQ/50 ML x 4 RUNS IV SCH ×2 (01:21→02:42)
[2021-07-20] MEDS: LORazepam 2 mg VIAL 1 ml IV PUSH SCH ×5 (02:42→17:12)
[2021-07-20] MEDS: LORazepam 2 mg VIAL 1 ml IV SCH ×2 (02:43→15:14)
[2021-07-20 07:09] LABS: Albumin 2.7 g/dL (3.2-5.2); Albumin/Globulin Ratio 1.2 (1-3); Calcium 7.8 mg/dL (8.6-10.3); Globulin 2.2 g/dL (2-4); Magnesium 1.9 mg/dL (1.9-2.7); Potassium 3.2 mmol/L (3.5-5.0); Total Bilirubin 8.3 mg/dL (0.2-1.0); Total Protein 4.9 g/dL (6.4-8.9); eGFR CKD-EPI 117.5 (>60)
[2021-07-20 07:17] LABS: ABS Lymphocytes 0.5 10^3/ul (1.0-4.8); ABS Monocytes 0.6 10^3/ul (0-0.8); ABS Neutrophils 2.9 10^3/ul (1.5-7.7); Eosinophil % 0.8 %; Hematocrit 25 % (42-52); Hemoglobin 8.8 g/dL (14.0-18.0); Lymphocyte % 11.5 %; Mean Corpuscular HGB Conc 35 g/dL (31-36); Mean Corpuscular Hemoglobin 37 pg (27-31); Mean Corpuscular Volume 106 fL (80-94); Mean Platelet Volume 8.7 fL (7.4-10.4); Nucleated Red Blood Cells % 0.2; Platelet Count 41 10^3/uL (150-450); Red Cell Distribution Width 14 % (10-15)
[2021-07-20] MEDS ORDERED: NS 0.9% 1000 ml BAG 1,000 ML IV SCH (07:45)
[2021-07-20] MEDS: KCL 20 MEQ/100 ML IVPREMIX 20 MEQ/100 ML BAG IV SCH ×3 (08:31→21:14)
[2021-07-20] MEDS: Lactulose 30 ml UDC PO SCH ×4 (11:23→21:07)
[2021-07-20] MEDS: Multivitamins/Minerals TAB PO SCH (11:24)
[2021-07-20] MEDS: Pantoprazole VIAL 40 MG VIAL IV SCH (12:40)
[2021-07-20] MEDS: Mometasone 220 MCG MDI INH SCH (20:48)
[2021-07-20] MEDS: KCL premix 10 MEQ/50 ML x 2 BAGS IV SCH ×2 (21:17→22:37)
[2021-07-21] MEDS: LORazepam 2 mg VIAL 1 ml IV PUSH SCH ×4 (00:43→23:03)
[2021-07-21 07:18] LABS: ABS Eosinophils 0.1 10^3/ul (0-0.6); ABS Lymphocytes 0.4 10^3/ul (1.0-4.8); ABS Monocytes 0.8 10^3/ul (0-0.8); ABS Neutrophils 2.6 10^3/ul (1.5-7.7); Eosinophil % 1.3 %; Hematocrit 25 % (42-52); Hemoglobin 8.8 g/dL (14.0-18.0); Mean Corpuscular HGB Conc 35 g/dL (31-36); Mean Corpuscular Hemoglobin 37 pg (27-31); Mean Corpuscular Volume 107 fL (80-94); Mean Platelet Volume 8.6 fL (7.4-10.4); Nucleated Red Blood Cells % 0.1; Platelet Count 57 10^3/uL (150-450); Red Blood Count 2.35 10^6 /uL (4.18-5.48); Red Cell Distribution Width 14 % (10-15); White Blood Count 3.9 10^3/uL (3.5-10.8)
[2021-07-21 07:24] LABS: Albumin 2.7 g/dL (3.2-5.2); Albumin/Globulin Ratio 1.2 (1-3); Calcium 7.8 mg/dL (8.6-10.3); Globulin 2.2 g/dL (2-4); Magnesium 1.6 mg/dL (1.9-2.7); Potassium 3.2 mmol/L (3.5-5.0); Total Bilirubin 7.9 mg/dL (0.2-1.0); Total Protein 4.9 g/dL (6.4-8.9); eGFR CKD-EPI 116.1 (>60)
[2021-07-21] MEDS ORDERED: Potassium Chlor 10 meq TAB PO ONE (07:45)
[2021-07-21] MEDS: Lactulose 30 ml UDC PO SCH ×4 (08:03→21:00)
[2021-07-21] MEDS: Multivitamins/Minerals TAB PO SCH (08:03)
[2021-07-21] MEDS ORDERED: KCL 20 MEQ/100 ML IVPREMIX 20 MEQ/100 ML BAG IV SCH (09:00)
[2021-07-21] MEDS: Pantoprazole VIAL 40 MG VIAL IV SCH (10:27)
[2021-07-21] MEDS: KCL 10 MEQ/50 ML IVPREMIX 10 MEQ/50 ML BAG IV SCH ×4 (11:10→14:32)
[2021-07-21] MEDS ORDERED: Magnesium Sulfate IV 3 GM in NS 0.9% 100 ml BAG 100 ML IVPB ONE (14:04)
[2021-07-21] MEDS ORDERED: KCL 10 MEQ/50 ML IVPREMIX 10 MEQ/50 ML BAG ONE (14:29)
[2021-07-21] MEDS: D5W 1/2 NS KCl 20 meq 1000 ml 1,000 ML IV SCH (17:01)
[2021-07-21] MEDS: Mometasone 220 MCG MDI INH SCH (21:35)
[2021-07-22] MEDS: LORazepam 2 mg VIAL 1 ml IV PUSH SCH ×6 (04:22→14:22)
[2021-07-22 05:34] LABS: ABS Lymphocytes 0.4 10^3/ul (1.0-4.8); ABS Monocytes 0.8 10^3/ul (0-0.8); ABS Neutrophils 2.6 10^3/ul (1.5-7.7); Eosinophil % 1.2 %; Hematocrit 28 % (42-52); Hemoglobin 9.4 g/dL (14.0-18.0); Lymphocyte % 10.7 %; Mean Corpuscular HGB Conc 34 g/dL (31-36); Mean Corpuscular Hemoglobin 37 pg (27-31); Mean Corpuscular Volume 110 fL (80-94); Mean Platelet Volume 8.3 fL (7.4-10.4); Nucleated Red Blood Cells % 0.1; Platelet Count 70 10^3/uL (150-450); Red Blood Count 2.54 10^6 /uL (4.18-5.48); Red Cell Distribution Width 14 % (10-15); White Blood Count 3.9 10^3/uL (3.5-10.8)
[2021-07-22 05:56] LABS: Albumin 2.8 g/dL (3.2-5.2); Albumin/Globulin Ratio 1.1 (1-3); Calcium 7.8 mg/dL (8.6-10.3); Globulin 2.6 g/dL (2-4); Potassium 3.2 mmol/L (3.5-5.0); Total Bilirubin 7.6 mg/dL (0.2-1.0); Total Protein 5.4 g/dL (6.4-8.9); eGFR CKD-EPI 116.1 (>60)
[2021-07-22] MEDS: Pantoprazole VIAL 40 MG VIAL IV SCH (10:20)
[2021-07-22] MEDS: KCL 10 MEQ/50 ML IVPREMIX 10 MEQ/50 ML BAG IV SCH ×2 (10:20→12:12)
[2021-07-22] MEDS: Lactulose 30 ml UDC PO SCH ×4 (11:46→22:18)
[2021-07-22] MEDS: Multivitamins/Minerals TAB PO SCH (11:46)
[2021-07-22] MEDS ORDERED: cefTRIAXone 1 gm/50 mL NS BAG 1 GM/50 ML BAG IVPB SCH (13:00)
[2021-07-22] MEDS: LORazepam 2 mg VIAL 1 ml IV SCH ×2 (13:36→21:56)
[2021-07-22] MEDS ORDERED: Piperacillin/Tazobac ADVAN 3.375 GM in NS 0.9% 100 ml BAG 100 ML IV ONE (15:02)
[2021-07-22] MEDS ORDERED: Vancomycin 1,500 MG in NS 0.9% 250 ml 250 ML IVPB ONE (15:30)
[2021-07-22] MEDS: Acetaminophen IV 1 GM/100ML 100 ML IV PRN (15:51)
[2021-07-22] MEDS ORDERED: Dexmedetomidine 1,000 MCG in NS 0.9% 250 ml 240 ML IV SCH (16:00)
[2021-07-22] MEDS ORDERED: Zosyn per Pharmacy NOTE FOLLOW UP SCH (16:00)
[2021-07-22] MEDS: D5W 1/2 NS KCl 20 meq 1000 ml 1,000 ML IV SCH (16:08)
[2021-07-22 16:26] LABS: Magnesium 1.8 mg/dL (1.9-2.7); Phosphorus 2.7 mg/dL (2.5-5.0)
[2021-07-22] MEDS ORDERED: Buffered Lidocaine 1% SYRIN 1 ml INTRADERM ONE (16:49)
[2021-07-22] MEDS ORDERED: Norepinephrine 16MCG/ML IVPRE 4,000 MCG/250 ML BAG IV ONE (16:55)
[2021-07-22] MEDS ORDERED: D5W 500 ml BAG 500 ML IV ONE (16:58)
[2021-07-22] MEDS ORDERED: Norepinephrine 16MCG/ML IVPRE 4,000 MCG/250 ML BAG IV SCH ×2 (17:00→19:00)
[2021-07-22 17:03] LABS: Urine Appearance Clear; Urine Bilirubin 2+ (Negative); Urine Blood 1+ (Negative); Urine Color Amber; Urine Glucose Negative (Negative); Urine Ketones 1+ (Negative); Urine Nitrite Negative (Negative); Urine Protein Negative (Negative); Urine Urobilinogen Positive (Negative)
[2021-07-22 17:05] LABS: Urine Bacteria 1+ (Absent); Urine Red Blood Cell Trace(0-2/hpf) (Absent); Urine Squamous Epithelial Cell Present (Absent); Urine White Blood Cell 1+(6-10/hpf) (Absent)
[2021-07-22] MEDS ORDERED: NORMOSOL-R pH 7.4 1000 mL BAG 500 ML IV SCH (17:30)
[2021-07-22] MEDS ORDERED: NORMOSOL-R pH 7.4 1000 mL BAG 1,000 ML IV SCH (18:00)
[2021-07-22] MEDS: Thiamine 100 MG/ML 2 ml VIAL 500 MG in NS 0.9% 250 ml 250 ML IV ONE ×2 (18:26→18:45)
[2021-07-22] MEDS: Hydrocortisone INJ 100 MG/2ML 2 ML VIAL IV SCH (18:29)
[2021-07-22] MEDS ORDERED: Magnesium Sulfate 2 gm BAG 2 GM/50 ML BAG IVPB ONE (18:38)
[2021-07-22] MEDS ORDERED: Vancomycin per Pharmacy 1 EA NOTE FOLLOW UP PRN (18:46)
[2021-07-22] MEDS: Mometasone 220 MCG MDI INH SCH (19:43)
[2021-07-22] MEDS: ZOSYN 3.375 GM Q8H per EXTENDED INFUSION IV SCH (20:15)
[2021-07-22] MEDS ORDERED: Lactulose 30 ml UDC NG TUBE SCH (22:14)
[2021-07-22] MEDS: Thiamine 100 MG/ML 2 ml VIAL 500 MG in NS 0.9% 250 ml 250 ML IV SCH (22:21)
[2021-07-22] MEDS: Ampicillin ADVAN 2 GM in NS 0.9% 100 ml BAG 100 ML IVPB SCH (23:55)
[2021-07-23] MEDS: Hydrocortisone INJ 100 MG/2ML 2 ML VIAL IV SCH ×3 (00:54→17:59)
[2021-07-23] MEDS: Vancomycin 1000 MG in NS 0.9% 250 ML IVPB SCH ×2 (02:11→09:05)
[2021-07-23] MEDS: Acetaminophen IV 1 GM/100ML 100 ML IV PRN (03:52)
[2021-07-23] MEDS: ZOSYN 3.375 GM Q8H per EXTENDED INFUSION IV SCH (03:52)
[2021-07-23 03:57] LABS: ABS Lymphocytes 0.3 10^3/ul (1.0-4.8); ABS Monocytes 0.6 10^3/ul (0-0.8); ABS Neutrophils 3.3 10^3/ul (1.5-7.7); Hematocrit 27 % (42-52); Mean Corpuscular HGB Conc 33 g/dL (31-36); Mean Corpuscular Hemoglobin 37 pg (27-31); Mean Corpuscular Volume 110 fL (80-94); Platelet Count 65 10^3/uL (150-450); Red Blood Count 2.46 10^6 /uL (4.18-5.48); Red Cell Distribution Width 15 % (10-15); White Blood Count 4.1 10^3/uL (3.5-10.8)
[2021-07-23 04:12] LABS: Calcium 7.4 mg/dL (8.6-10.3); Phosphorus 3.8 mg/dL (2.5-5.0); Potassium 2.9 mmol/L (3.5-5.0); eGFR CKD-EPI 113.5 (>60)
[2021-07-23] MEDS ORDERED: Potassium Chloride LIQUID 20 MEQ/15 ML LIQUID PO ONE ×3 (04:18→23:00)
[2021-07-23] MEDS ORDERED: Metoprolol Tartrate 5 mg VIAL 5 ml VIAL (1 mg/ml) IV PRN (04:19)
[2021-07-23] MEDS ORDERED: KCL 10 MEQ/50 ML IVPREMIX 10 MEQ/50 ML BAG IV ONE (04:26)
[2021-07-23] MEDS: LORazepam 2 mg VIAL 1 ml IV SCH (05:55)
[2021-07-23] MEDS: Ampicillin ADVAN 2 GM in NS 0.9% 100 ml BAG 100 ML IVPB SCH ×2 (05:55→12:20)
[2021-07-23] MEDS: Thiamine 100 MG/ML 2 ml VIAL 500 MG in NS 0.9% 250 ml 250 ML IV SCH ×3 (06:32→22:34)
[2021-07-23] MEDS ORDERED: NS 0.9% 50 ML 50 ML ONE (08:21)
[2021-07-23] MEDS ORDERED: NS 0.9% 250 ml 250 ML ONE (08:21)
[2021-07-23] MEDS: Pantoprazole VIAL 40 MG VIAL IV SCH (08:36)
[2021-07-23] MEDS: Potassium Chloride LIQUID 20 MEQ/15 ML LIQUID PO SCH ×2 (08:36→21:51)
[2021-07-23] MEDS: Multivitamins/Minerals TAB SCH (08:36)
[2021-07-23] MEDS: Folic Acid IV 1 MG in NS 0.9% 50 ML 50 ML IVPB SCH (08:39)
[2021-07-23] MEDS ORDERED: Folic Acid 1 mg SYRINGE 0.2 ML SYRINGE IV SCH (09:00)
[2021-07-23] MEDS ORDERED: cefTRIAXone 2 GM ADDV.VIAL 2 GM in NS 0.9% 100 ml BAG 100 ML IV SCH ×2 (11:00→17:00)
[2021-07-23 12:18] LABS: Body Fluid Source Cerebral Spinal
[2021-07-23 12:38] LABS: CSF Glucose 80 mg/dL (40-70)
[2021-07-23 12:39] LABS: Albumin 2.7 g/dL (3.2-5.2); Albumin/Globulin Ratio 1.1 (1-3); Globulin 2.5 g/dL (2-4); Total Bilirubin 7.4 mg/dL (0.2-1.0); Total Protein 5.2 g/dL (6.4-8.9)
[2021-07-23 12:57] LABS: Body Fluid Appearance Clear; Body Fluid Color Colorless
[2021-07-23 12:58] LABS: CSF Tube # 4
[2021-07-23 13:09] LABS: Body Fluid WBC 2 /mcL
[2021-07-23 13:14] LABS: Body Fluid Mono 10 %
[2021-07-23 13:15] LABS: Body Fluid Total Cells Counted 10
[2021-07-23 15:18] LABS: C Reactive Protein 97.3 mg/L (<8.01)
[2021-07-23] MEDS: D5W 1/2 NS 1000 ml BAG 1,000 ML IV SCH (15:22)
[2021-07-23] MEDS: DOXYcycline 100 MG in NS 0.9% 250 ml 250 ML IVPB SCH (17:59)
[2021-07-23 18:48] LABS: Calcium 7.4 mg/dL (8.6-10.3); eGFR CKD-EPI 118.2 (>60)
[2021-07-23 19:44] LABS: Magnesium 1.8 mg/dL (1.9-2.7); Phosphorus 2.5 mg/dL (2.5-5.0)
[2021-07-24] MEDS: Hydrocortisone INJ 100 MG/2ML 2 ML VIAL IV SCH (01:33)
[2021-07-24] MEDS: D5W 1/2 NS 1000 ml BAG 1,000 ML IV SCH ×2 (03:25→17:48)
[2021-07-24 06:41] LABS: ABS Lymphocytes 0.2 10^3/ul (1.0-4.8); ABS Monocytes 0.6 10^3/ul (0-0.8); Hematocrit 25 % (42-52); Hemoglobin 8.4 g/dL (14.0-18.0); Lymphocyte % 6.3 %; Mean Corpuscular HGB Conc 34 g/dL (31-36); Mean Corpuscular Hemoglobin 38 pg (27-31); Mean Corpuscular Volume 111 fL (80-94); Mean Platelet Volume 9.7 fL (7.4-10.4); Platelet Count 69 10^3/uL (150-450); Red Blood Count 2.23 10^6 /uL (4.18-5.48); Red Cell Distribution Width 15 % (10-15); White Blood Count 3.8 10^3/uL (3.5-10.8)
[2021-07-24] MEDS: Thiamine 100 MG/ML 2 ml VIAL 500 MG in NS 0.9% 250 ml 250 ML IV SCH (06:56)
[2021-07-24] MEDS: DOXYcycline 100 MG in NS 0.9% 250 ml 250 ML IVPB SCH ×2 (06:57→17:39)
[2021-07-24 06:58] LABS: Calcium 7.8 mg/dL (8.6-10.3); Magnesium 1.8 mg/dL (1.9-2.7); Phosphorus 1.5 mg/dL (2.5-5.0); eGFR CKD-EPI 120.5 (>60)
[2021-07-24] MEDS ORDERED: Potassium Phosphate IV 10 MMOLE in NS 0.9% 250 ml 250 ML IVPB ONE (08:11)
[2021-07-24] MEDS ORDERED: Magnesium Sulfate 2 gm BAG 2 GM/50 ML BAG IVPB ONE (08:12)
[2021-07-24] MEDS ORDERED: Vancomycin Trough Check NOTE FOLLOW UP ONE (08:30)
[2021-07-24] MEDS ORDERED: D5W 500 ml BAG 500 ML IV SCH (09:00)
[2021-07-24] MEDS ORDERED: NS 0.9% 250 ml 250 ML ONE ×2 (09:43→17:36)
[2021-07-24] MEDS: Pantoprazole VIAL 40 MG VIAL IV SCH (09:51)
[2021-07-24] MEDS: Potassium & Sodium Phos 250 mg = 1 PACKET PO SCH ×4 (09:51→20:27)
[2021-07-24] MEDS: Multivitamins/Minerals TAB SCH (09:51)
[2021-07-24] MEDS: Folic Acid IV 1 MG in NS 0.9% 50 ML 50 ML IVPB SCH (11:10)
[2021-07-24] MEDS: cefTRIAXone 2 GM ADDV.VIAL 2 GM in NS 0.9% 100 ml BAG 100 ML IV SCH (12:40)
[2021-07-24] MEDS: LORazepam 2 mg VIAL 1 ml IV PUSH SCH (14:49)
[2021-07-24 16:47] LABS: Albumin 2.6 g/dL (3.2-5.2); Globulin 2.5 g/dL (2-4); Magnesium 2.2 mg/dL (1.9-2.7); Phosphorus 2.2 mg/dL (2.5-5.0); Potassium 3.6 mmol/L (3.5-5.0); Total Bilirubin 4.5 mg/dL (0.2-1.0); Total Protein 5.1 g/dL (6.4-8.9); eGFR CKD-EPI 120.5 (>60)
[2021-07-24] MEDS ORDERED: Dexmedetomidine 1,000 MCG in NS 0.9% 250 ml 240 ML IV SCH (18:00)
[2021-07-24 18:22] LABS: ABS Lymphocytes 0.3 10^3/ul (1.0-4.8); ABS Monocytes 0.5 10^3/ul (0-0.8); Hematocrit 26 % (42-52); Hemoglobin 8.5 g/dL (14.0-18.0); Lymphocyte % 7.6 %; Mean Corpuscular HGB Conc 33 g/dL (31-36); Mean Corpuscular Hemoglobin 37 pg (27-31); Mean Corpuscular Volume 111 fL (80-94); Mean Platelet Volume 9.5 fL (7.4-10.4); Nucleated Red Blood Cells % 0.1; Platelet Count 79 10^3/uL (150-450); Red Blood Count 2.34 10^6 /uL (4.18-5.48); Red Cell Distribution Width 15 % (10-15); White Blood Count 3.9 10^3/uL (3.5-10.8)
[2021-07-24 21:42] LABS: HSV 1 PCR, CSF Negative (Negative); HSV 2 PCR, CSF Negative (Negative)
[2021-07-25] MEDS: DOXYcycline 100 MG in NS 0.9% 250 ml 250 ML IVPB SCH ×2 (05:55→18:10)
[2021-07-25 06:05] LABS: ABS Lymphocytes 0.5 10^3/ul (1.0-4.8); ABS Monocytes 0.3 10^3/ul (0-0.8); ABS Neutrophils 1.4 10^3/ul (1.5-7.7); Eosinophil % 0.9 %; Hematocrit 24 % (42-52); Hemoglobin 7.9 g/dL (14.0-18.0); Lymphocyte % 22.4 %; Mean Corpuscular HGB Conc 33 g/dL (31-36); Mean Corpuscular Hemoglobin 37 pg (27-31); Mean Corpuscular Volume 111 fL (80-94); Mean Platelet Volume 9.5 fL (7.4-10.4); Nucleated Red Blood Cells % 0.1; Platelet Count 72 10^3/uL (150-450); Red Blood Count 2.15 10^6 /uL (4.18-5.48); Red Cell Distribution Width 16 % (10-15); White Blood Count 2.3 10^3/uL (3.5-10.8)
[2021-07-25 06:18] LABS: Albumin 2.3 g/dL (3.2-5.2); C Reactive Protein 45.47 mg/L (<8.01); Calcium 7.8 mg/dL (8.6-10.3); Globulin 2.4 g/dL (2-4); Magnesium 1.8 mg/dL (1.9-2.7); Phosphorus 2.1 mg/dL (2.5-5.0); Total Bilirubin 3.9 mg/dL (0.2-1.0); Total Protein 4.7 g/dL (6.4-8.9); eGFR CKD-EPI 128.9 (>60)
[2021-07-25] MEDS: Thiamine 100 MG/ML 2 ml VIAL 250 MG in NS 0.9% 100 ml BAG 100 ML IV SCH (07:16)
[2021-07-25] MEDS ORDERED: Magnesium Sulfate IV 3 GM in NS 0.9% 100 ml BAG 100 ML IVPB ONE (07:50)
[2021-07-25] MEDS ORDERED: Potassium Phosphate IV 15 MMOLE in NS 0.9% 250 ml 250 ML IVPB ONE (08:30)
[2021-07-25] MEDS: D5W 1/2 NS 1000 ml BAG 1,000 ML IV SCH (09:39)
[2021-07-25] MEDS: Multivitamins/Minerals TAB SCH (09:40)
[2021-07-25] MEDS: Potassium & Sodium Phos 250 mg = 1 PACKET PO SCH ×3 (09:41→20:23)
[2021-07-25] MEDS: Pantoprazole VIAL 40 MG VIAL IV SCH (09:41)
[2021-07-25] MEDS: KCL 10 MEQ/50 ML IVPREMIX 10 MEQ/50 ML BAG IV SCH ×5 (10:52→15:40)
[2021-07-25] MEDS: D5W 1000 ml BAG 1,000 ML IV SCH ×2 (10:55→23:53)
[2021-07-25] MEDS: Folic Acid IV 1 MG in NS 0.9% 50 ML 50 ML IVPB SCH (12:55)
[2021-07-25] MEDS: cefTRIAXone 2 GM ADDV.VIAL 2 GM in NS 0.9% 100 ml BAG 100 ML IV SCH (13:14)
[2021-07-25 17:22] LABS: Calcium 7.6 mg/dL (8.6-10.3); Magnesium 2.1 mg/dL (1.9-2.7); Phosphorus 3.1 mg/dL (2.5-5.0); Potassium 4.1 mmol/L (3.5-5.0); eGFR CKD-EPI 125.9 (>60)
[2021-07-26 04:58] LABS: Albumin 2.1 g/dL (3.2-5.2); C Reactive Protein 20.39 mg/L (<8.01); Calcium 7.3 mg/dL (8.6-10.3); Globulin 2.1 g/dL (2-4); Magnesium 1.6 mg/dL (1.9-2.7); Phosphorus 2.7 mg/dL (2.5-5.0); Potassium 3.6 mmol/L (3.5-5.0); Total Bilirubin 3.2 mg/dL (0.2-1.0); Total Protein 4.2 g/dL (6.4-8.9)
[2021-07-26 05:59] LABS: Hematocrit 24 % (42-52); Mean Corpuscular HGB Conc 34 g/dL (31-36); Mean Corpuscular Hemoglobin 38 pg (27-31); Mean Corpuscular Volume 112 fL (80-94); Mean Platelet Volume 9.8 fL (7.4-10.4); Platelet Count 89 10^3/uL (150-450); Red Blood Count 2.13 10^6 /uL (4.18-5.48); Red Cell Distribution Width 15 % (10-15); White Blood Count 2.9 10^3/uL (3.5-10.8)
[2021-07-26] MEDS: Thiamine 100 MG/ML 2 ml VIAL 250 MG in NS 0.9% 100 ml BAG 100 ML IV SCH (06:32)
[2021-07-26] MEDS: DOXYcycline 100 MG in NS 0.9% 250 ml 250 ML IVPB SCH ×2 (06:32→17:53)
[2021-07-26] MEDS ORDERED: Dexmedetomidine 1,000 MCG in NS 0.9% 250 ml 240 ML IV SCH (08:17)
[2021-07-26 08:55] LABS: ABS Lymphocytes 0.6 10^3/ul (1.0-4.8); ABS Monocytes 0.4 10^3/ul (0-0.8); ABS Neutrophils 1.8 10^3/ul (1.5-7.7); Lymphocyte % 21.5 %; Nucleated Red Blood Cells % 0.2
[2021-07-26] MEDS ORDERED: Magnesium Sulf 4 GM/100 ML IV 4,000 MG/100 ML BAG IVPB ONE (09:49)
[2021-07-26] MEDS: Folic Acid IV 1 MG in NS 0.9% 50 ML 50 ML IVPB SCH (09:50)
[2021-07-26] MEDS ORDERED: Potassium Chloride LIQUID 20 MEQ/15 ML LIQUID PO ONE (09:50)
[2021-07-26] MEDS: Pantoprazole VIAL 40 MG VIAL IV SCH (09:51)
[2021-07-26] MEDS: D5W 1000 ml BAG 1,000 ML IV SCH (10:04)
[2021-07-26] MEDS: Potassium & Sodium Phos 250 mg = 1 PACKET PO SCH (10:10)
[2021-07-26] MEDS ORDERED: cefTRIAXone 1 gm/50 mL NS BAG 1 GM/50 ML BAG IVPB SCH (13:00)
[2021-07-26] MEDS ORDERED: Lorazepam PYXIS KEY PRN (13:44)
[2021-07-26] MEDS ORDERED: Albuterol HFA INHALER 8 gm MDI INH PRN (14:15)
[2021-07-26] MEDS: KCL 10 MEQ/50 ML IVPREMIX 10 MEQ/50 ML BAG IV SCH ×3 (14:17→16:28)
[2021-07-26] MEDS: Multivitamins/Minerals TAB SCH (14:55)
[2021-07-26] MEDS: LORazepam 2 mg VIAL 1 ml IV PUSH PRN (22:05)
[2021-07-27] MEDS: LORazepam 2 mg VIAL 1 ml IV PUSH PRN ×5 (01:12→23:40)
[2021-07-27] MEDS: DOXYcycline 100 MG in NS 0.9% 250 ml 250 ML IVPB SCH (05:36)
[2021-07-27 06:06] LABS: ABS Eosinophils 0.1 10^3/ul (0-0.6); ABS Monocytes 0.7 10^3/ul (0-0.8); ABS Neutrophils 4.9 10^3/ul (1.5-7.7); Eosinophil % 0.9 %; Hematocrit 29 % (42-52); Hemoglobin 9.5 g/dL (14.0-18.0); Lymphocyte % 15.4 %; Mean Corpuscular HGB Conc 33 g/dL (31-36); Mean Corpuscular Hemoglobin 37 pg (27-31); Mean Corpuscular Volume 112 fL (80-94); Mean Platelet Volume 9.9 fL (7.4-10.4); Nucleated Red Blood Cells % 0.1; Platelet Count 147 10^3/uL (150-450); Red Blood Count 2.56 10^6 /uL (4.18-5.48); Red Cell Distribution Width 16 % (10-15); White Blood Count 6.7 10^3/uL (3.5-10.8)
[2021-07-27 06:09] LABS: Albumin 2.4 g/dL (3.2-5.2); C Reactive Protein 16.7 mg/L (<8.01); Calcium 7.4 mg/dL (8.6-10.3); Globulin 2.5 g/dL (2-4); Magnesium 1.8 mg/dL (1.9-2.7); Phosphorus 2.8 mg/dL (2.5-5.0); Potassium 3.8 mmol/L (3.5-5.0); Total Bilirubin 4.5 mg/dL (0.2-1.0); Total Protein 4.9 g/dL (6.4-8.9); eGFR CKD-EPI 122.2 (>60)
[2021-07-27] MEDS: Thiamine 100 MG/ML 2 ml VIAL 250 MG in NS 0.9% 100 ml BAG 100 ML IV SCH (07:50)
[2021-07-27] MEDS: Multivitamins/Minerals TAB SCH (08:50)
[2021-07-27] MEDS: Pantoprazole VIAL 40 MG VIAL IV SCH (08:50)
[2021-07-27] MEDS: Folic Acid IV 1 MG in NS 0.9% 50 ML 50 ML IVPB SCH (08:58)
[2021-07-27] MEDS ORDERED: Magnesium Sulfate 2 gm BAG 2 GM/50 ML BAG IVPB ONE (09:55)
[2021-07-27] MEDS ORDERED: Potassium Chlor 20 meq TAB.ER PO ONE (09:55)
[2021-07-28] MEDS ORDERED: LORazepam 2 mg VIAL 1 ml IV PUSH ONE (00:29)
[2021-07-28 09:06] LABS: Hematocrit 31 % (42-52); Hemoglobin 10.2 g/dL (14.0-18.0); Mean Corpuscular HGB Conc 33 g/dL (31-36); Mean Corpuscular Hemoglobin 38 pg (27-31); Mean Corpuscular Volume 113 fL (80-94); Mean Platelet Volume 9.4 fL (7.4-10.4); Platelet Count 154 10^3/uL (150-450); Red Blood Count 2.71 10^6 /uL (4.18-5.48); Red Cell Distribution Width 17 % (10-15); White Blood Count 5.4 10^3/uL (3.5-10.8)
[2021-07-28 09:18] LABS: Albumin 2.7 g/dL (3.2-5.2); Calcium 8.2 mg/dL (8.6-10.3); Globulin 2.7 g/dL (2-4); Magnesium 1.8 mg/dL (1.9-2.7); Potassium 3.9 mmol/L (3.5-5.0); Total Bilirubin 5.7 mg/dL (0.2-1.0); Total Protein 5.4 g/dL (6.4-8.9); eGFR CKD-EPI 119.7 (>60)
[2021-07-28] MEDS: Multivitamins/Minerals TAB SCH (09:23)
[2021-07-28 09:35] LABS: ABS Lymphocytes 0.6 10^3/ul (1.0-4.8); ABS Monocytes 0.7 10^3/ul (0-0.8); ABS Neutrophils 4.1 10^3/ul (1.5-7.7); Eosinophil % 0.6 %; Lymphocyte % 11.6 %
[2021-07-28] MEDS ORDERED: Acetylcysteine INHALATION SOL 200 MG/ML NEB.SOLN 10 ML INH SCH (12:00)
[2021-07-28] MEDS ORDERED: Acetylcysteine INHALATION SOL 200 MG/ML NEB.SOLN 10 ML INH PRN (13:36)
[2021-07-29 06:56] LABS: Hematocrit 27 % (42-52); Hemoglobin 9.2 g/dL (14.0-18.0); Mean Corpuscular HGB Conc 34 g/dL (31-36); Mean Corpuscular Hemoglobin 38 pg (27-31); Mean Corpuscular Volume 112 fL (80-94); Mean Platelet Volume 9.4 fL (7.4-10.4); Platelet Count 164 10^3/uL (150-450); Red Blood Count 2.42 10^6 /uL (4.18-5.48); Red Cell Distribution Width 16 % (10-15); White Blood Count 4.2 10^3/uL (3.5-10.8)
[2021-07-29 07:08] LABS: Albumin 2.4 g/dL (3.2-5.2); Albumin/Globulin Ratio 0.9 (1-3); Calcium 7.8 mg/dL (8.6-10.3); Globulin 2.6 g/dL (2-4); Magnesium 1.7 mg/dL (1.9-2.7); Potassium 3.8 mmol/L (3.5-5.0); Total Bilirubin 4.7 mg/dL (0.2-1.0); eGFR CKD-EPI 123.1 (>60)
[2021-07-29] MEDS ORDERED: Magnesium Sulfate 2 gm BAG 2 GM/50 ML BAG IVPB ONE (07:52)
[2021-07-29] MEDS: Multivitamins/Minerals TAB SCH (10:11)
[2021-07-29] MEDS: Ondansetron 4 mg VIAL 2 MG/ML 2 ml VIAL IV PRN (11:58)
[2021-07-30 06:50] LABS: ABS Lymphocytes 0.6 10^3/ul (1.0-4.8); ABS Monocytes 0.9 10^3/ul (0-0.8); Eosinophil % 0.6 %; Hematocrit 26 % (42-52); Hemoglobin 8.8 g/dL (14.0-18.0); Lymphocyte % 11.2 %; Mean Corpuscular HGB Conc 35 g/dL (31-36); Mean Corpuscular Hemoglobin 39 pg (27-31); Mean Corpuscular Volume 112 fL (80-94); Mean Platelet Volume 9.1 fL (7.4-10.4); Platelet Count 181 10^3/uL (150-450); Red Blood Count 2.27 10^6 /uL (4.18-5.48); Red Cell Distribution Width 16 % (10-15); White Blood Count 5.6 10^3/uL (3.5-10.8)
[2021-07-30 07:13] LABS: Calcium 7.6 mg/dL (8.6-10.3); Magnesium 1.8 mg/dL (1.9-2.7); eGFR CKD-EPI 120.5 (>60)
[2021-07-30] MEDS ORDERED: Magnesium Sulfate 2 gm BAG 2 GM/50 ML BAG IVPB ONE (07:44)
[2021-07-30] MEDS: Multivitamins/Minerals TAB SCH (09:32)
[2021-07-31] MEDS: Ondansetron 4 mg VIAL 2 MG/ML 2 ml VIAL IV PRN (01:18)
[2021-07-31 06:03] LABS: Hematocrit 28 % (42-52); Hemoglobin 9.2 g/dL (14.0-18.0); Mean Corpuscular HGB Conc 33 g/dL (31-36); Mean Corpuscular Hemoglobin 37 pg (27-31); Mean Corpuscular Volume 112 fL (80-94); Mean Platelet Volume 9.4 fL (7.4-10.4); Platelet Count 199 10^3/uL (150-450); Red Blood Count 2.45 10^6 /uL (4.18-5.48); Red Cell Distribution Width 15 % (10-15); White Blood Count 5.3 10^3/uL (3.5-10.8)
[2021-07-31 06:13] LABS: Calcium 7.8 mg/dL (8.6-10.3); Magnesium 1.9 mg/dL (1.9-2.7); Phosphorus 3.4 mg/dL (2.5-5.0); Potassium 4.2 mmol/L (3.5-5.0); eGFR CKD-EPI 119.7 (>60)
[2021-07-31 07:36] VITALS: BP 118/58
[2021-07-31] MEDS: Multivitamins/Minerals TAB SCH (09:25)
[2021-07-31 11:12] LABS: Rapid COVID-19 Molecular Undetected (Undetected)
== END 2021-07-31 11:20 | DRG 775 ==
LOC: ED 17:08 → EDHOLD 22:12 → SUATTDRO 22:12 → MEDTELE 07-18 07:51 → ICU 07-22 15:10 → MED 07-27 15:24
PROVIDERS: ADMIT Hospitalist; ATTEND Internal Medicine

== ENCOUNTER 2021-08-08 13:10 | Inpatient (IN) ==
[2021-08-08 14:10] LABS: ABS Lymphocytes 0.6 10^3/ul (1.0-4.8); ABS Monocytes 1.2 10^3/ul (0-0.8); ABS Neutrophils 11.3 10^3/ul (1.5-7.7); Eosinophil % 0.2 %; Hematocrit 36 % (42-52); Hemoglobin 11.9 g/dL (14.0-18.0); Lymphocyte % 4.3 %; Mean Corpuscular HGB Conc 33 g/dL (31-36); Mean Corpuscular Hemoglobin 35 pg (27-31); Mean Corpuscular Volume 108 fL (80-94); Mean Platelet Volume 9.4 fL (7.4-10.4); Platelet Count 271 10^3/uL (150-450); Red Blood Count 3.37 10^6 /uL (4.18-5.48); Red Cell Distribution Width 15 % (10-15); White Blood Count 13.2 10^3/uL (3.5-10.8)
[2021-08-08] MEDS ORDERED: Iohexol 300 (CONTRAST) 10 ML SDV IV ONE (14:11)
[2021-08-08 14:16] LABS: Activated Partial Thrombo Time 30.9 seconds (26.0-38.0); INR 1.22 (0.86-1.15)
[2021-08-08 14:28] LABS: ALT 46 U/L (7-52); AST 94 U/L (13-39); Albumin/Globulin Ratio 0.8 (1-3); Alkaline Phosphatase 560 U/L (35-149); Ammonia 35 mcmol/L (16-53); Anion Gap 9 mmol/L (2-11); Blood Urea Nitrogen 35 mg/dL (6-24); C Reactive Protein 180.91 mg/L (<8.01); CO2 Carbon Dioxide 28 mmol/L (22-32); Calcium 8.8 mg/dL (8.6-10.3); Chloride 99 mmol/L (101-111); Creatine Kinase 26 U/L (10-223); Globulin 3.9 g/dL (2-4); Glucose 106 mg/dL (70-100); Indirect Bilirubin 1.5 mg/dL (0.3-1.0); Lipase 74 U/L (11.0-82.0); Magnesium 2.3 mg/dL (1.9-2.7); Potassium 3.3 mmol/L (3.5-5.0); Sodium 136 mmol/L (135-145); Total Protein 6.9 g/dL (6.4-8.9); eGFR CKD-EPI 98.1 (>60)
[2021-08-08 14:31] LABS: BNP 416 pg/mL (<=100)
[2021-08-08] MEDS ORDERED: Piperacillin/Tazobac ADVAN 3.375 GM in NS 0.9% 100 ml BAG 100 ML IV ONE (14:56)
[2021-08-08 15:01] LABS: Troponin I 0.03 ng/mL (<0.03)
[2021-08-08] MEDS ORDERED: NON FORMULARY MED (Menthol-Zinc Oxide [Calmoseptine] 0.44-20.6 % Ointment) TOPICAL PRN (16:09)
[2021-08-08] MEDS ORDERED: Magnesium Hydroxide LIQ 30 ML UDC PO PRN (16:09)
[2021-08-08] MEDS ORDERED: Albuterol HFA INHALER 8 gm MDI INH PRN (16:09)
[2021-08-08] MEDS ORDERED: oxyCODONE/Acetamin 5/325 mg TAB PO PRN (16:34)
[2021-08-08] MEDS ORDERED: Lorazepam PYXIS KEY PRN (16:35)
[2021-08-08] MEDS ORDERED: LORazepam 2 mg VIAL 1 ml IV PUSH PRN (16:35)
[2021-08-08] MEDS ORDERED: Loteprednol 0.5% OPH.SUSP(NF) 5 ML BTL BOTH EYES SCH (17:00)
[2021-08-08] MEDS ORDERED: Zosyn per Pharmacy NOTE FOLLOW UP SCH (17:00)
[2021-08-08] MEDS: Enoxaparin 40 MG/0.4 ML SYR SUBCUT SCH (17:07)
[2021-08-08] MEDS ORDERED: NS 0.45% KCl 20 Meq 1000 ml 1,000 ML IV SCH (18:00)
[2021-08-08] MEDS: NS 0.45% KCl 20 Meq 1000 ml 1,000 ML IV SCH (19:20)
[2021-08-08] MEDS: Chlorhexidine MOUTHWASH 0.12% 15 ML UDC TOPICAL SCH ×2 (20:54→23:10)
[2021-08-08] MEDS ORDERED: Polyethylene Glycol 3350 17 GM PACKET PO SCH (21:00)
[2021-08-08] MEDS ORDERED: Lactulose 30 ml UDC PO SCH (21:00)
[2021-08-08] MEDS: Mometasone 220 MCG MDI INH SCH ×2 (21:32→21:34)
[2021-08-08] MEDS: Piperacillin/Tazobac ADVAN 3.375 GM in NS 0.9% 100 ml BAG 100 ML IV SCH (21:32)
[2021-08-08] MEDS: prednisoLONE 1% OPHTH.SUSP 5 ML OPHTH.SUSP BOTH EYES SCH (21:32)
[2021-08-09 00:02] LABS: Troponin I 0.04 ng/mL (<0.03)
[2021-08-09] MEDS: Chlorhexidine MOUTHWASH 0.12% 15 ML UDC TOPICAL SCH ×6 (03:20→23:25)
[2021-08-09] MEDS: Piperacillin/Tazobac ADVAN 3.375 GM in NS 0.9% 100 ml BAG 100 ML IV SCH (05:16)
[2021-08-09] MEDS: NS 0.45% KCl 20 Meq 1000 ml 1,000 ML IV SCH (05:20)
[2021-08-09 06:32] LABS: Hematocrit 33 % (42-52); Mean Corpuscular HGB Conc 34 g/dL (31-36); Mean Corpuscular Hemoglobin 36 pg (27-31); Mean Corpuscular Volume 107 fL (80-94); Mean Platelet Volume 9.4 fL (7.4-10.4); Platelet Count 231 10^3/uL (150-450); Red Blood Count 3.05 10^6 /uL (4.18-5.48); Red Cell Distribution Width 15 % (10-15); White Blood Count 9.1 10^3/uL (3.5-10.8)
[2021-08-09 06:53] LABS: Blood Urea Nitrogen 27 mg/dL (6-24); CO2 Carbon Dioxide 24 mmol/L (22-32); Calcium 8.2 mg/dL (8.6-10.3); Chloride 103 mmol/L (101-111); Glucose 84 mg/dL (70-100); Sodium 135 mmol/L (135-145); eGFR CKD-EPI 116.1 (>60)
[2021-08-09 07:01] LABS: Anion Gap 8 mmol/L (2-11)
[2021-08-09 07:02] LABS: Troponin I 0.03 ng/mL (<0.03)
[2021-08-09 08:22] LABS: Potassium Redraw 3.5 mmol/L (3.5-5.0)
[2021-08-09 08:45] LABS: Albumin 2.4 g/dL (3.2-5.2); Total Bilirubin 2.8 mg/dL (0.2-1.0)
[2021-08-09] MEDS: prednisoLONE 1% OPHTH.SUSP 5 ML OPHTH.SUSP BOTH EYES SCH ×4 (08:50→20:42)
[2021-08-09] MEDS: Pantoprazole VIAL 40 MG VIAL IV SCH (08:50)
[2021-08-09] MEDS: DULoxetine DR 20 mg CAP PO SCH (08:50)
[2021-08-09 08:51] LABS: Albumin/Globulin Ratio 0.8 (1-3); Total Protein 5.4 g/dL (6.4-8.9)
[2021-08-09 09:01] LABS: Indirect Bilirubin 1.8 mg/dL (0.3-1.0)
[2021-08-09] MEDS: Thiamine 100 MG/ML 2 ml VIAL 100 MG, Folic Acid IV 1 MG, Multiple Vitamin IV ADULT 10 M... IV SCH (12:05)
[2021-08-09] MEDS: ZOSYN 3.375 GM Q6H - Intermittant 30 min Infusion IV SCH ×2 (12:59→17:35)
[2021-08-09] MEDS: Mometasone 220 MCG MDI INH SCH (19:50)
[2021-08-09] MEDS: Enoxaparin 40 MG/0.4 ML SYR SUBCUT SCH (20:40)
[2021-08-09] MEDS: NS 0.9% 1000 ml BAG 1,000 ML IV SCH (20:43)
[2021-08-09] MEDS ORDERED: Lorazepam PYXIS KEY PRN (21:40)
[2021-08-09] MEDS ORDERED: LORazepam 2 mg VIAL 1 ml IV PUSH PRN (21:40)
[2021-08-10] MEDS: ZOSYN 3.375 GM Q6H - Intermittant 30 min Infusion IV SCH ×4 (00:08→17:42)
[2021-08-10] MEDS: NS 0.9% 1000 ml BAG 1,000 ML IV SCH (00:36)
[2021-08-10] MEDS: Chlorhexidine MOUTHWASH 0.12% 15 ML UDC TOPICAL SCH ×5 (03:56→17:45)
[2021-08-10 05:14] LABS: Hematocrit 31 % (42-52); Hemoglobin 10.3 g/dL (14.0-18.0); Mean Corpuscular HGB Conc 34 g/dL (31-36); Mean Corpuscular Hemoglobin 36 pg (27-31); Mean Corpuscular Volume 106 fL (80-94); Mean Platelet Volume 9.3 fL (7.4-10.4); Platelet Count 218 10^3/uL (150-450); Red Blood Count 2.89 10^6 /uL (4.18-5.48); Red Cell Distribution Width 15 % (10-15); White Blood Count 6.5 10^3/uL (3.5-10.8)
[2021-08-10 05:28] LABS: Calcium 7.9 mg/dL (8.6-10.3); Magnesium 1.8 mg/dL (1.9-2.7); eGFR CKD-EPI 116.8 (>60)
[2021-08-10] MEDS ORDERED: Magnesium Sulfate 2 gm BAG 2 GM/50 ML BAG IVPB ONE (07:31)
[2021-08-10 08:19] LABS: Albumin 2.4 g/dL (3.2-5.2); Albumin/Globulin Ratio 0.8 (1-3); Direct Bilirubin 1.8 mg/dL (0.03-0.18); Globulin 3.1 g/dL (2-4); Indirect Bilirubin 1.3 mg/dL (0.3-1.0); Total Bilirubin 3.1 mg/dL (0.2-1.0); Total Protein 5.5 g/dL (6.4-8.9)
[2021-08-10] MEDS: KCL 20 MEQ/100 ML IVPREMIX 20 MEQ/100 ML BAG IV SCH ×3 (08:51→14:08)
[2021-08-10] MEDS: Thiamine 100 MG/ML 2 ml VIAL 100 MG, Folic Acid IV 1 MG, Multiple Vitamin IV ADULT 10 M... IV SCH (08:51)
[2021-08-10] MEDS: DULoxetine DR 20 mg CAP PO SCH ×2 (09:18→10:36)
[2021-08-10] MEDS: Pantoprazole VIAL 40 MG VIAL IV SCH (09:41)
[2021-08-10] MEDS: prednisoLONE 1% OPHTH.SUSP 5 ML OPHTH.SUSP BOTH EYES SCH ×4 (09:41→21:06)
[2021-08-10] MEDS ORDERED: Thiamine 100 MG/ML 2 ml VIAL (200 mg) ONE (10:33)
[2021-08-10] MEDS: Mometasone 220 MCG MDI INH SCH (20:09)
[2021-08-10] MEDS: Enoxaparin 40 MG/0.4 ML SYR SUBCUT SCH (21:06)
[2021-08-11] MEDS: Chlorhexidine MOUTHWASH 0.12% 15 ML UDC TOPICAL SCH ×7 (00:13→22:44)
[2021-08-11] MEDS: ZOSYN 3.375 GM Q6H - Intermittant 30 min Infusion IV SCH ×4 (00:13→17:50)
[2021-08-11 06:12] LABS: ABS Eosinophils 0.3 10^3/ul (0-0.6); ABS Lymphocytes 0.6 10^3/ul (1.0-4.8); ABS Monocytes 0.8 10^3/ul (0-0.8); ABS Neutrophils 4.5 10^3/ul (1.5-7.7); Eosinophil % 4.6 %; Hematocrit 32 % (42-52); Hemoglobin 10.5 g/dL (14.0-18.0); Lymphocyte % 9.7 %; Mean Corpuscular HGB Conc 33 g/dL (31-36); Mean Corpuscular Hemoglobin 35 pg (27-31); Mean Corpuscular Volume 107 fL (80-94); Mean Platelet Volume 9.8 fL (7.4-10.4); Nucleated Red Blood Cells % 0.1; Platelet Count 243 10^3/uL (150-450); Red Blood Count 2.98 10^6 /uL (4.18-5.48); Red Cell Distribution Width 16 % (10-15); White Blood Count 6.2 10^3/uL (3.5-10.8)
[2021-08-11 06:33] LABS: Albumin 2.5 g/dL (3.2-5.2); Albumin/Globulin Ratio 0.8 (1-3); Globulin 3.2 g/dL (2-4); Magnesium 1.7 mg/dL (1.9-2.7); Potassium 3.4 mmol/L (3.5-5.0); Total Bilirubin 2.6 mg/dL (0.2-1.0); Total Protein 5.7 g/dL (6.4-8.9); eGFR CKD-EPI 124.9 (>60)
[2021-08-11] MEDS ORDERED: Magnesium Sulfate IV 3 GM in NS 0.9% 100 ml BAG 100 ML IVPB ONE (07:21)
[2021-08-11] MEDS: Pantoprazole VIAL 40 MG VIAL IV SCH (08:45)
[2021-08-11] MEDS: prednisoLONE 1% OPHTH.SUSP 5 ML OPHTH.SUSP BOTH EYES SCH ×4 (08:45→22:44)
[2021-08-11] MEDS: DULoxetine DR 20 mg CAP PO SCH (08:48)
[2021-08-11] MEDS: Thiamine 100 MG/ML 2 ml VIAL 100 MG, Folic Acid IV 1 MG, Multiple Vitamin IV ADULT 10 M... IV SCH (10:02)
[2021-08-11] MEDS: Mometasone 220 MCG MDI INH SCH (19:36)
[2021-08-11] MEDS: Enoxaparin 40 MG/0.4 ML SYR SUBCUT SCH (22:44)
[2021-08-12] MEDS: ZOSYN 3.375 GM Q6H - Intermittant 30 min Infusion IV SCH ×5 (00:43→23:20)
[2021-08-12] MEDS: Chlorhexidine MOUTHWASH 0.12% 15 ML UDC TOPICAL SCH ×6 (02:21→22:28)
[2021-08-12 06:11] LABS: Hematocrit 32 % (42-52); Hemoglobin 10.8 g/dL (14.0-18.0); Mean Corpuscular HGB Conc 34 g/dL (31-36); Mean Corpuscular Hemoglobin 36 pg (27-31); Mean Corpuscular Volume 105 fL (80-94); Mean Platelet Volume 9.6 fL (7.4-10.4); Platelet Count 264 10^3/uL (150-450); Red Blood Count 3.01 10^6 /uL (4.18-5.48); Red Cell Distribution Width 16 % (10-15); White Blood Count 7.8 10^3/uL (3.5-10.8)
[2021-08-12 06:44] LABS: Albumin 2.3 g/dL (3.2-5.2); Albumin/Globulin Ratio 0.7 (1-3); Calcium 7.6 mg/dL (8.6-10.3); Globulin 3.2 g/dL (2-4); Magnesium 1.5 mg/dL (1.9-2.7); Potassium 3.3 mmol/L (3.5-5.0); Total Bilirubin 2.1 mg/dL (0.2-1.0); Total Protein 5.5 g/dL (6.4-8.9)
[2021-08-12] MEDS ORDERED: Potassium Chlor 20 meq TAB.ER PO ONE (07:25)
[2021-08-12] MEDS ORDERED: Magnesium Sulf 4 GM/100 ML IV 4,000 MG/100 ML BAG IVPB ONE (08:00)
[2021-08-12] MEDS ORDERED: Thiamine 100 MG/ML 2 ml VIAL (200 mg) ONE (08:46)
[2021-08-12] MEDS: Pantoprazole VIAL 40 MG VIAL IV SCH (09:03)
[2021-08-12] MEDS: DULoxetine DR 20 mg CAP PO SCH (09:03)
[2021-08-12] MEDS: Thiamine 100 MG/ML 2 ml VIAL 100 MG, Folic Acid IV 1 MG, Multiple Vitamin IV ADULT 10 M... IV SCH (10:42)
[2021-08-12] MEDS: Mometasone 220 MCG MDI INH SCH (20:00)
[2021-08-12] MEDS: Enoxaparin 40 MG/0.4 ML SYR SUBCUT SCH (22:28)
[2021-08-13] MEDS: Chlorhexidine MOUTHWASH 0.12% 15 ML UDC TOPICAL SCH ×6 (04:46→23:45)
[2021-08-13 05:54] LABS: Hematocrit 31 % (42-52); Hemoglobin 10.4 g/dL (14.0-18.0); Mean Corpuscular HGB Conc 34 g/dL (31-36); Mean Corpuscular Hemoglobin 36 pg (27-31); Mean Corpuscular Volume 106 fL (80-94); Mean Platelet Volume 9.3 fL (7.4-10.4); Platelet Count 282 10^3/uL (150-450); Red Blood Count 2.93 10^6 /uL (4.18-5.48); Red Cell Distribution Width 16 % (10-15); White Blood Count 7.9 10^3/uL (3.5-10.8)
[2021-08-13 06:02] LABS: Albumin 2.3 g/dL (3.2-5.2); Calcium 7.7 mg/dL (8.6-10.3); Magnesium 1.6 mg/dL (1.9-2.7); Potassium 3.8 mmol/L (3.5-5.0); Total Bilirubin 1.8 mg/dL (0.2-1.0)
[2021-08-13 06:08] LABS: Albumin/Globulin Ratio 0.7 (1-3); Globulin 3.1 g/dL (2-4); Total Protein 5.4 g/dL (6.4-8.9); eGFR CKD-EPI 127.9 (>60)
[2021-08-13] MEDS: ZOSYN 3.375 GM Q6H - Intermittant 30 min Infusion IV SCH ×3 (06:14→17:48)
[2021-08-13] MEDS ORDERED: Magnesium Sulf 4 GM/100 ML IV 4,000 MG/100 ML BAG IVPB ONE (07:20)
[2021-08-13] MEDS: DULoxetine DR 20 mg CAP PO SCH ×2 (08:00→09:35)
[2021-08-13] MEDS: Pantoprazole VIAL 40 MG VIAL IV SCH (08:31)
[2021-08-13] MEDS ORDERED: fentaNYL 100 mcg/2 ml 50 MCG/ML VIAL ONE (13:28)
[2021-08-13 15:14] LABS: Body Fluid Source OTH
[2021-08-13] MEDS: Enoxaparin 40 MG/0.4 ML SYR SUBCUT SCH (15:46)
[2021-08-13] MEDS: Metoclopramide 5 MG/ML VIAL (10 mg) IV PRN (15:52)
[2021-08-13 18:41] LABS: Body Fluid Appearance Cloudy
[2021-08-13 18:48] LABS: Body Fluid WBC 0 /mcL
[2021-08-13] MEDS: Morphine 2 MG/ML SYRINGE IV PRN ×2 (19:34→22:06)
[2021-08-13] MEDS: Mometasone 220 MCG MDI INH SCH (20:41)
[2021-08-14] MEDS: ZOSYN 3.375 GM Q6H - Intermittant 30 min Infusion IV SCH ×4 (00:05→17:54)
[2021-08-14] MEDS: Morphine 2 MG/ML SYRINGE IV PRN ×3 (01:56→09:24)
[2021-08-14] MEDS: Chlorhexidine MOUTHWASH 0.12% 15 ML UDC TOPICAL SCH ×6 (02:52→22:12)
[2021-08-14 06:33] LABS: Albumin 2.2 g/dL (3.2-5.2); Albumin/Globulin Ratio 0.7 (1-3); Calcium 7.7 mg/dL (8.6-10.3); Globulin 3.1 g/dL (2-4); Magnesium 1.6 mg/dL (1.9-2.7); Potassium 3.6 mmol/L (3.5-5.0); Total Bilirubin 1.5 mg/dL (0.2-1.0); Total Protein 5.3 g/dL (6.4-8.9)
[2021-08-14] MEDS: Pantoprazole VIAL 40 MG VIAL IV SCH (09:17)
[2021-08-14] MEDS: DULoxetine DR 20 mg CAP PO SCH (09:17)
[2021-08-14] MEDS: Enoxaparin 40 MG/0.4 ML SYR SUBCUT SCH (15:53)
[2021-08-14 17:45] LABS: Vitamin D Total 25(OH) 8.8 ng/mL (20-50)
[2021-08-14] MEDS: Mometasone 220 MCG MDI INH SCH (20:26)
[2021-08-15] MEDS: ZOSYN 3.375 GM Q6H - Intermittant 30 min Infusion IV SCH ×4 (00:21→17:18)
[2021-08-15] MEDS: Chlorhexidine MOUTHWASH 0.12% 15 ML UDC TOPICAL SCH ×6 (03:55→23:21)
[2021-08-15 05:11] LABS: Hematocrit 30 % (42-52); Hemoglobin 10.1 g/dL (14.0-18.0); Mean Corpuscular HGB Conc 34 g/dL (31-36); Mean Corpuscular Hemoglobin 35 pg (27-31); Mean Corpuscular Volume 105 fL (80-94); Platelet Count 295 10^3/uL (150-450); Red Blood Count 2.85 10^6 /uL (4.18-5.48); Red Cell Distribution Width 17 % (10-15); White Blood Count 9.7 10^3/uL (3.5-10.8)
[2021-08-15 05:26] LABS: Albumin 2.2 g/dL (3.2-5.2); Albumin/Globulin Ratio 0.7 (1-3); Calcium 7.5 mg/dL (8.6-10.3); Magnesium 1.3 mg/dL (1.9-2.7); Potassium 3.5 mmol/L (3.5-5.0); Total Bilirubin 1.4 mg/dL (0.2-1.0); Total Protein 5.2 g/dL (6.4-8.9); eGFR CKD-EPI 123.1 (>60)
[2021-08-15] MEDS ORDERED: Magnesium Sulf 4 GM/100 ML IV 4,000 MG/100 ML BAG IVPB ONE (07:27)
[2021-08-15] MEDS: Morphine 2 MG/ML SYRINGE IV PRN ×5 (09:32→20:02)
[2021-08-15] MEDS: Metoclopramide 5 MG/ML VIAL (10 mg) IV PRN ×2 (09:38→17:18)
[2021-08-15] MEDS ORDERED: Cholecalciferol (VIT D3) 50,000 UNIT CAP (NF) PO SCH (10:00)
[2021-08-15] MEDS: Pantoprazole VIAL 40 MG VIAL IV SCH (10:17)
[2021-08-15] MEDS: DULoxetine DR 20 mg CAP PO SCH (10:18)
[2021-08-15] MEDS: Enoxaparin 40 MG/0.4 ML SYR SUBCUT SCH (14:48)
[2021-08-15] MEDS ORDERED: Hydrocortisone 0.5% OINT 1 TUBE TOPICAL SCH (21:00)
[2021-08-15] MEDS: Mometasone 220 MCG MDI INH SCH (21:07)
[2021-08-16] MEDS: ZOSYN 3.375 GM Q6H - Intermittant 30 min Infusion IV SCH ×3 (00:16→12:19)
[2021-08-16] MEDS: Chlorhexidine MOUTHWASH 0.12% 15 ML UDC TOPICAL SCH ×6 (02:24→21:23)
[2021-08-16 05:10] LABS: Albumin 2.3 g/dL (3.2-5.2); Albumin/Globulin Ratio 0.7 (1-3); Calcium 7.8 mg/dL (8.6-10.3); Globulin 3.2 g/dL (2-4); Magnesium 1.7 mg/dL (1.9-2.7); Total Bilirubin 1.4 mg/dL (0.2-1.0); Total Protein 5.5 g/dL (6.4-8.9); eGFR CKD-EPI 124.9 (>60)
[2021-08-16] MEDS: Pantoprazole VIAL 40 MG VIAL IV SCH (09:23)
[2021-08-16] MEDS: DULoxetine DR 20 mg CAP PO SCH (09:26)
[2021-08-16] MEDS: Morphine 2 MG/ML SYRINGE IV PRN ×4 (09:31→22:27)
[2021-08-16] MEDS ORDERED: Magnesium Sulfate IV 3 GM in NS 0.9% 100 ml BAG 100 ML IVPB ONE (10:00)
[2021-08-16] MEDS: cefTRIAXone 2 GM ADDV.VIAL 2 GM in NS 0.9% 100 ml BAG 100 ML IV SCH (13:04)
[2021-08-16] MEDS: Metoclopramide 5 MG/ML VIAL (10 mg) IV PRN (13:16)
[2021-08-16] MEDS: metroNIDAZOLE IV 500 MG/100ML 500 MG/100 ML BAG IVPB SCH ×2 (14:04→19:54)
[2021-08-16] MEDS: Enoxaparin 40 MG/0.4 ML SYR SUBCUT SCH (17:14)
[2021-08-16] MEDS: Mometasone 220 MCG MDI INH SCH (20:16)
[2021-08-17] MEDS: Chlorhexidine MOUTHWASH 0.12% 15 ML UDC TOPICAL SCH ×6 (03:24→22:15)
[2021-08-17 04:35] LABS: Hematocrit 32 % (42-52); Hemoglobin 10.6 g/dL (14.0-18.0); Mean Corpuscular HGB Conc 33 g/dL (31-36); Mean Corpuscular Hemoglobin 34 pg (27-31); Mean Corpuscular Volume 104 fL (80-94); Mean Platelet Volume 8.8 fL (7.4-10.4); Platelet Count 324 10^3/uL (150-450); Red Blood Count 3.07 10^6 /uL (4.18-5.48); Red Cell Distribution Width 16 % (10-15); White Blood Count 6.6 10^3/uL (3.5-10.8)
[2021-08-17 04:51] LABS: ALT 15 U/L (7-52); AST 17 U/L (13-39); Albumin 2.3 g/dL (3.2-5.2); Albumin/Globulin Ratio 0.7 (1-3); Alkaline Phosphatase 300 U/L (35-149); Anion Gap 3 mmol/L (2-11); Blood Urea Nitrogen 7 mg/dL (6-24); CO2 Carbon Dioxide 29 mmol/L (22-32); Calcium 7.9 mg/dL (8.6-10.3); Chloride 104 mmol/L (101-111); Globulin 3.2 g/dL (2-4); Glucose 87 mg/dL (70-100); Magnesium 1.6 mg/dL (1.9-2.7); Potassium 4.1 mmol/L (3.5-5.0); Sodium 136 mmol/L (135-145); Total Protein 5.5 g/dL (6.4-8.9); eGFR CKD-EPI 136.2 (>60)
[2021-08-17] MEDS: Morphine 2 MG/ML SYRINGE IV PRN ×2 (05:19→10:50)
[2021-08-17] MEDS: metroNIDAZOLE IV 500 MG/100ML 500 MG/100 ML BAG IVPB SCH ×3 (05:20→20:40)
[2021-08-17] MEDS: DULoxetine DR 20 mg CAP PO SCH (10:47)
[2021-08-17] MEDS: Pantoprazole VIAL 40 MG VIAL IV SCH (10:48)
[2021-08-17] MEDS: cefTRIAXone 2 GM ADDV.VIAL 2 GM in NS 0.9% 100 ml BAG 100 ML IV SCH (13:36)
[2021-08-17] MEDS: Enoxaparin 40 MG/0.4 ML SYR SUBCUT SCH (17:50)
[2021-08-17] MEDS: Mometasone 220 MCG MDI INH SCH (20:39)
[2021-08-18] MEDS: Chlorhexidine MOUTHWASH 0.12% 15 ML UDC TOPICAL SCH ×6 (02:31→22:21)
[2021-08-18] MEDS: metroNIDAZOLE IV 500 MG/100ML 500 MG/100 ML BAG IVPB SCH ×3 (04:51→20:31)
[2021-08-18 06:03] LABS: Calcium 7.7 mg/dL (8.6-10.3); Magnesium 1.3 mg/dL (1.9-2.7); Potassium 4.1 mmol/L (3.5-5.0); eGFR CKD-EPI 134.9 (>60)
[2021-08-18] MEDS ORDERED: Magnesium Sulfate IV 3 GM in NS 0.9% 100 ml BAG 100 ML IVPB ONE (06:06)
[2021-08-18] MEDS: Pantoprazole VIAL 40 MG VIAL IV SCH (07:28)
[2021-08-18] MEDS: DULoxetine DR 20 mg CAP PO SCH (07:28)
[2021-08-18] MEDS: cefTRIAXone 2 GM ADDV.VIAL 2 GM in NS 0.9% 100 ml BAG 100 ML IV SCH (12:41)
[2021-08-18] MEDS: Enoxaparin 40 MG/0.4 ML SYR SUBCUT SCH (16:25)
[2021-08-18] MEDS: Mometasone 220 MCG MDI INH SCH (20:25)
[2021-08-19] MEDS: Chlorhexidine MOUTHWASH 0.12% 15 ML UDC TOPICAL SCH ×6 (03:15→22:08)
[2021-08-19] MEDS: metroNIDAZOLE IV 500 MG/100ML 500 MG/100 ML BAG IVPB SCH (05:39)
[2021-08-19 06:25] LABS: Calcium 7.8 mg/dL (8.6-10.3); Magnesium 1.5 mg/dL (1.9-2.7); eGFR CKD-EPI 134.9 (>60)
[2021-08-19] MEDS ORDERED: Magnesium Sulfate IV 3 GM in NS 0.9% 100 ml BAG 100 ML IVPB ONE (07:00)
[2021-08-19] MEDS ORDERED: NS 0.9% 100 ml BAG 100 ML ONE (07:52)
[2021-08-19] MEDS: Pantoprazole VIAL 40 MG VIAL IV SCH (08:26)
[2021-08-19] MEDS: DULoxetine DR 20 mg CAP PO SCH (08:29)
[2021-08-19] MEDS: Amoxicillin/Clavul 500/125 TAB (Augmentin 500 mg tab) PO SCH ×2 (08:29→20:36)
[2021-08-19] MEDS: Enoxaparin 40 MG/0.4 ML SYR SUBCUT SCH (16:35)
[2021-08-19] MEDS: Mometasone 220 MCG MDI INH SCH (19:51)
[2021-08-20] MEDS: Chlorhexidine MOUTHWASH 0.12% 15 ML UDC TOPICAL SCH ×3 (04:28→09:58)
[2021-08-20 06:43] LABS: Anion Gap 5 mmol/L (2-11); Blood Urea Nitrogen 7 mg/dL (6-24); CO2 Carbon Dioxide 27 mmol/L (22-32); Calcium 7.9 mg/dL (8.6-10.3); Chloride 103 mmol/L (101-111); Glucose 87 mg/dL (70-100); Magnesium 1.5 mg/dL (1.9-2.7); Sodium 135 mmol/L (135-145); eGFR CKD-EPI 136.2 (>60)
[2021-08-20 08:02] VITALS: BP 121/47
[2021-08-20 09:12] LABS: Rapid COVID-19 Molecular Undetected (Undetected)
[2021-08-20] MEDS: DULoxetine DR 20 mg CAP PO SCH (09:57)
[2021-08-20] MEDS: Amoxicillin/Clavul 500/125 TAB (Augmentin 500 mg tab) PO SCH (09:57)
[2021-08-20] MEDS: Pantoprazole VIAL 40 MG VIAL IV SCH (09:58)
== END 2021-08-20 10:30 | DRG 445 ==
LOC: ED 13:10 → SUATTDRO 16:23 → EDHOLD 16:23 → SSU 18:29
PROVIDERS: ADMIT Internal Medicine; ATTEND Student in an Organized Health Care Education/Training Program